=== PATIENT | male | born 1955 | race Caucasian/White ===

== ENCOUNTER 2016-08-26 10:00 | Inpatient (IN) | payer OTHER ==
[2016-08-26 10:06] VITALS: BMI 40.7
--- NOTE | 2016-08-26 11:07 | PDOC ---
History of Present Illness - General Chief Complaint: Lightheaded Stated Complaint: LIGHTHEADED (PACEMAKER) Time Seen by Provider: 08/26/16 10:23 History Source: Patient Exam Limitations: No Limitations - History of Present Illness Initial Comments: 08/26/16 11:06 Patient with history of A. fib, hypertension, CHF, AICD and COPD presents with 2 days history of sob and dizziness worsened with standing. Pt denies chest pain , palpitations, shock like pain, increased lower extremity edema, fever, abdominal pain, recent illness, recent change change in medication, or weight change. Presenting Symptoms: Dizziness, Short of Breath Timing/Duration: reports: intermittent Severity/Quality: reports: moderate Activities at Onset: reports: none Prior Chest Pain/Cardiac Workup: reports: Other (defibrillator/ pacemaker) Beta Manuelito given by EMS (Core Measure): No Beta Manuelito taken at Home (Core Measure): No Associated Symptoms: Yes: Dizziness, Shortness of Breath, Weakness. No: Chest Pain/pressure Past History - Past Medical History Allergies/Adverse Reactions: Allergies Allergy/AdvReac Type Severity Reaction Status Date / Time No Known Drug Allergies Allergy Verified 08/26/16 10:06 Home Medications: Ambulatory Orders Apixaban [Eliquis] 5 mg PO BID 07/26/15 Aspirin [ASA -] 81 mg PO DAILY 07/26/15 Sitagliptin Phos/Metformin HCl [Janumet 50-1,000 mg Tablet] 1 tab PO BID Gabapentin [Neurontin -] 400 mg PO BID capsule 11/14/15 Levothyroxine [Synthroid -] 25 mcg PO DAILY@0700 tablet 11/14/15 Atorvastatin Ca [Lipitor] 20 mg PO DAILY 01/18/16 Carvedilol [Coreg -] 25 mg PO BID 01/18/16 Clopidogrel Bisulfate [Plavix -] 75 mg PO DAILY 01/18/16 Glipizide [Glucotrol -] 5 mg PO BID 01/18/16 Losartan Potassium [Cozaar -] 50 mg PO DAILY 01/18/16 Spironolactone [Aldactone -] 25 mg PO DAILY 01/18/16 Furosemide [Lasix] 40 mg PO BID 08/26/16 Cardiac Disorders: Yes (cardiac stent, defib, cardiomyopathy, CABG 4) COPD: Yes CHF: Yes Diabetes: Yes HTN: Yes Hypercholesterolemia: Yes - Surgical History Cardiac Surgery: Yes (cardiac stent x1, CAGB 4, PACEMAKER/DEFIB) Orthopedic Surgery: No - Psycho/Social/Smoking Cessation Hx Anxiety: No Suicidal Ideation: No Smoking Status: No Smoking History: Former smoker Years of Tobacco Use: 20 Have you smoked in the past 12 months: No Number of Cigarettes Smoked Daily: 0 If you are a former smoker, when did you quit?: 2007 Information on smoking cessation initiated: No 'Breaking Loose' booklet given: 05/30/12 Hx Alcohol Use: No Drug/Substance Use Hx: No Substance Use Type: None Hx Substance Use Treatment: No Patient Lives Alone: No Lives with/in: spouse/SO Cardiac Specific PMH - Complaint Specific PMHX Abdominal Aortic Aneurysm: No Angina: No Cardiac Arrhythmia: No Cardiac Stent: Yes GERD: Yes Pacemaker: No Pulmonary Embolus: No Valvular Heart Disease: No Peripheral Vascular Disease: No Review of Systems - Review of Systems Able to Perform ROS?: Yes Constitutional: Yes: Weakness HEENTM: No: Symptoms Reported Respiratory: Yes: SOB with Exertion Cardiac (ROS): Yes: Lightheadedness. No: Chest Pain, Edema, Irregular Heart Rate, Palpitations, Syncope, Chest Tightness ABD/GI: No: Symptoms Reported : No: Symptoms Reported Musculoskeletal: No: Symptoms Reported Integumentary: No: Symptoms Reported Neurological: Yes: Dizziness Endocrine: No: Symptoms Reported Hematologic/Lymphatic: No: Symptoms Reported *Physical Exam - Vital Signs Last Vital Signs Temp Pulse Resp BP Pulse Ox 98.1 F 64 20 104/58 99 08/28/16 05:00 08/28/16 05:00 08/28/16 05:00 08/28/16 05:00 08/28/16 00:05 - Physical Exam General Appearance: Yes: Nourished, Appropriately Dressed. No: Apparent Distress HEENT: positive: EOMI, ROSALINDA. negative: Pale Conjunctivae Neck: positive: Supple Respiratory/Chest: positive: Lungs Clear, Normal Breath Sounds. negative: Respiratory Distress, Accessory Muscle Use Cardiovascular: positive: Regular Rhythm, Bradycardia. negative: Murmur Vascular Pulses: Dorsalis-Pedis (R): 2+, Doralis-Pedis (L): 2+ Gastrointestinal/Abdominal: positive: Soft. negative: Tenderness Extremity: positive: Normal Capillary Refill. negative: Pedal Edema Integumentary: positive: Normal Color, Warm, Moist Neurologic: positive: Normal Mood/Affect, Motor Strength 5/5 (ambulatory) Heart Score/ECG Review - History History: Slightly suspicious - ECG Intrepretation Rhythm: PAC(s) (rate 76. Right bundle branch block, LVH.) ED Treatment Course - LABORATORY CBC & Chemistry Diagram: 08/27/16 06:00 08/27/16 06:00 - ADDITIONAL ORDERS Additional order review: 08/26/16 11:13 RBC 3.35 L MCV 90.0 MCHC 33.4 RDW 21.3 H MPV 9.5 Neutrophils % 71.6 Lymphocytes % 20.2 Monocytes % 6.8 Eosinophils % 1.1 Basophils % 0.3 - RADIOLOGY Radiology Studies Ordered: Category Date Time Status CHEST X-RAY PORTABLE* [RAD] Stat Radiology 08/26/16 10:40 Completed - Medications Given in the ED: ED Medications Discontinued Medications Generic Name Dose Route Start Last Admin Trade Name Freq PRN Reason Stop Dose Admin Apixaban 5 mg 08/26/16 22:00 08/27/16 09:36 Eliquis - PO 5 mg BID JOSE Administration Furosemide 80 mg 08/26/16 15:52 08/26/16 16:55 Lasix Injection - IVPUSH 08/26/16 15:53 80 mg ONCE ONE Administration Sodium Chloride 500 mls @ 500 mls/hr 08/26/16 12:11 08/26/16 12:37 Normal Saline - IV 08/26/16 13:10 500 mls/hr ASDIR STA Administration Influenza Virus Vaccine 45 mcg 08/27/16 14:00 08/27/16 14:55 Fluvirin IM 08/27/16 14:01 45 mcg .ONCE ONE Administration Losartan Potassium 50 mg 08/27/16 10:00 08/27/16 09:36 Cozaar - PO 50 mg DAILY JOSE Administration Magnesium Oxide 400 mg 08/26/16 15:20 08/26/16 15:31 Mag-Ox - PO 08/26/16 15:21 400 mg ONCE ONE Administration Magnesium Oxide 400 mg 08/27/16 22:00 08/27/16 21:45 Mag-Ox - PO 08/27/16 22:01 400 mg HS ONE Administration Medical Decision Making - Critical Care Time Total Critical Care Time (minutes): 35 Critical Care Statement: The care of this patient involved high complexity decision making to prevent further life threatening deterioration of the patient 's condition and/or to evalute & treat vital organ system(s) failure or risk of failure. - Medical Decision Making 08/26/16 11:21 Patient with history of COPD, CHF with AICD placement in 2016 and is under the care of Dr. Queen. Patient states since last week has been feeling short of breath with exertion requiring his oxygen more frequently. Patient also stating he has been mildly generally weak with dizziness upon standing. Patient triaged had a heart rate of 45 and here has been fluctuating anywhere from 40 to mid 70s. Patient has his pacemaker card on him and contacted [facility] who will contact me shortly to initiate interrogation. Patient also ordered for labs, chest x-ray, EKG and placed on arc and gas welder. 08/26/16 12:41 Laboratory Tests 08/26/16 08/26/16 11:13 11:13 WBC 5.0 Hgb 10.1 L Hct 30.1 L Plt Count 157 Sodium 139 Potassium 4.2 Chloride 102 Carbon Dioxide 28 Anion Gap 9 BUN 52 H D Creatinine 3.0 H D Random Glucose 107 H D Calcium 8.4 L Magnesium 1.8 Total Bilirubin 0.6 D AST 16 D ALT 23 Creatine Kinase 76 Troponin I < 0.02 Laboratory Tests 11/23/15 05:50 BUN 22 H D Creatinine 0.8 Due to patient's elevated BUN/creatinine patient will have gentle fluid hydration of 500 mL. As per request the hospitalist patient had a BNP and digoxin level added. Case discussed with Dr. Calabrese who states to admit patient to telemetry. Contacted [facility] and did bedside interrogation which they will interpret over the next 10 minutes. Patient currently ranging his heart rate from 39-76 and has been otherwise asymptomatic while in bed. *DC/Admit/Observation/Transfer Diagnosis at time of Disposition: Shortness of breath, Bradycardia, Dizziness - Discharge Dispostion Admit: Yes
--- NOTE | 2016-08-26 11:40 | CON.CARD ---
Consult Consult Specialty:: Cardiology - History of Present Illness History of Present Illness: Patient with history of A. fib, hypertension, CHF, AICD and COPD presents with 2 days history of sob and dizziness worsened with standing. Pt denies chest pain , palpitations, shock like pain, increased lower extremity edema, fever, abdominal pain, recent illness, recent change change in medication, or weight change. Former Smoker Surgical History: CABG 06/2014 at [facility] (4VD) ICD 2015 Medical History: Diabetes Mellitus (DM) HTN hyperlipidemia obesity obstructive sleep apnea syndrome (OSAS) paroxysmal atrial fibrillation (PAF) s/p CABG 06/2014 (denies hx [place]), with moderately severe systolic LV dysfunction noted at [facility] on that admision-->ICD. Social History: Admitted 07/2015 to [facility] with systolic CHF. pt had to retire from work early due to health issues (CHF; CAD). walking is severely limited by dyspnea on exertion - History Source History Provided By: Patient, Medical Record - Past Medical History Cardio/Vascular: Yes: AFIB, CAD, CHF, HTN, Hyperlipdemia Pulmonary: Yes: COPD, Sleep Apnea. No: Asthma, Bronchitis, Cancer, O2 Dependent , Pneumonia, Previously Intubated, Pulmonary Embolus, Pulmonary Fibrosis, Other Renal/: Yes: Renal Inusuff (recent; ?prerenal azotemia) Endocrine: Yes: Diabetes Mellitus. No: [place]'s Disease, [place]'s Disease, Diabetes Insipidus, Hyperparathyroidism, Hyperthyroidism, Hypothyroidism, Osteopenia, SIADH, Other - Alcohol/Substance Use Hx Alcohol Use: No - Smoking History Smoking history: Former smoker Have you smoked in the past 12 months: No Aproximately how many cigarettes per day: 0 If you are a former smoker, when did you quit?: 2007 - Social History Usual Living Arrangement: With Spouse Home Medications - Allergies Allergies/Adverse Reactions: Allergies Allergy/AdvReac Type Severity Reaction Status Date / Time No Known Drug Allergies Allergy Verified 08/26/16 10:06 - Home Medications Home Medications: Ambulatory Orders Apixaban [Eliquis] 5 mg PO BID 07/26/15 Aspirin [ASA -] 81 mg PO DAILY 07/26/15 Sitagliptin Phos/Metformin HCl [Janumet 50-1,000 mg Tablet] 1 tab PO BID Gabapentin [Neurontin -] 400 mg PO BID capsule 11/14/15 Levothyroxine [Synthroid -] 25 mcg PO DAILY@0700 tablet 11/14/15 Atorvastatin Ca [Lipitor] 20 mg PO DAILY 01/18/16 Carvedilol [Coreg -] 25 mg PO BID 01/18/16 Clopidogrel Bisulfate [Plavix -] 75 mg PO DAILY 01/18/16 Glipizide [Glucotrol -] 5 mg PO BID 01/18/16 Losartan Potassium [Cozaar -] 50 mg PO DAILY 01/18/16 Spironolactone [Aldactone -] 25 mg PO DAILY 01/18/16 Furosemide [Lasix] 40 mg PO BID 08/26/16 Review of Systems - Review of Systems Constitutional: reports: No Symptoms Eyes: reports: No Symptoms HENT: reports: No Symptoms Neck: reports: No Symptoms Cardiovascular: reports: No Symptoms, Shortness of Breath Respiratory: reports: SOB Gastrointestinal: reports: No Symptoms Genitourinary: reports: No Symptoms Breasts: reports: No Symptoms Reported Musculoskeletal: reports: No Symptoms Integumentary: reports: No Symptoms Neurological: reports: No Symptoms Endocrine: reports: No Symptoms Hematology/Lymphatic: reports: No Symptoms Psychiatric: reports: No Symptoms Vital Signs: Vital Signs Temperature Pulse Rate 45 L 08/26/16 10:03 Respiratory Rate 24 08/26/16 10:03 Blood Pressure 124/54 08/26/16 10:03 O2 Sat by Pulse Oximetry (%) 98 08/26/16 11:24 Constitutional: Yes: Well Nourished, No Distress, Calm Eyes: Yes: WNL, Conjunctiva Clear, EOM Intact HENT: Yes: WNL, Atraumatic, Normocephalic Neck: Yes: WNL, Supple, Trachea Midline Respiratory: Yes: WNL, Regular, CTA Bilaterally Gastrointestinal: Yes: WNL, Normal Bowel Sounds Renal/: Yes: WNL Cardiovascular: Yes: WNL, Regular Rate and Rhythm Musculoskeletal: Yes: WNL Extremities: Yes: WNL Integumentary: Yes: WNL Neurological: Yes: WNL, Alert, Oriented ...Motor Strength: WNL Psychiatric: Yes: WNL, Alert, Oriented Imaging - Results Chest X-ray: Image Reviewed (cm chf) EKG: Image Reviewed (a fib) Problem List - Problems (1) AICD discharge Code(s): Z45.02 - ENCNTR FOR ADJUST AND MGMT OF AUTOMATIC IMPLNTBL CARD DEFIB (2) ASHD (arteriosclerotic heart disease) Code(s): I25.10 - ATHSCL HEART DISEASE OF [place] CORONARY ARTERY W/O ANG PCTRS (3) Ascites Code(s): R18.8 - OTHER ASCITES (4) Atrial fib/flutter, transient Code(s): [id number] - (5) Atrial fibrillation Code(s): I48.91 - UNSPECIFIED ATRIAL FIBRILLATION (6) Bifascicular block Code(s): I45.2 - BIFASCICULAR BLOCK (7) COPD (chronic obstructive pulmonary disease) Code(s): J44.9 - CHRONIC OBSTRUCTIVE PULMONARY DISEASE, UNSPECIFIED Qualifiers : COPD type: unspecified COPD Qualified Code(s): J44.9 - Chronic obstructive pulmonary disease, unspecified (8) Cellulitis and abscess of lower extremity Code(s): L02.419 - CUTANEOUS ABSCESS OF LIMB, UNSPECIFIED L03.119 - CELLULITIS OF UNSPECIFIED PART OF LIMB (9) Congestive heart failure Code(s): I50.9 - HEART FAILURE, UNSPECIFIED Qualifiers: Congestive heart failure type: unspecified congestive heart failure type Congestive heart failure chronicity: acute on chronic Qualified Code(s ): I50.9 - Heart failure, unspecified (10) Diabetes Code(s): E11.9 - TYPE 2 DIABETES MELLITUS WITHOUT COMPLICATIONS (11) HTN (hypertension) Code(s): I10 - ESSENTIAL (PRIMARY) HYPERTENSION (12) Hyperlipidemia Code(s): E78.5 - HYPERLIPIDEMIA, UNSPECIFIED (13) Hypothyroid Code(s): E03.9 - HYPOTHYROIDISM, UNSPECIFIED (14) Metabolic syndrome Code(s): E88.81 - METABOLIC SYNDROME (15) Morbid obesity Code(s): E66.01 - MORBID (SEVERE) OBESITY DUE TO EXCESS CALORIES (16) Pulmonary hypertension Code(s): I27.2 - OTHER SECONDARY PULMONARY HYPERTENSION (17) Renal insufficiency Code(s): N28.9 - DISORDER OF KIDNEY AND URETER, UNSPECIFIED (18) S/P CABG (coronary artery bypass graft) Code(s): Z95.1 - PRESENCE OF AORTOCORONARY BYPASS GRAFT (19) S/P implantation of automatic cardioverter/defibrillator (AICD) Code(s): Z95.810 - PRESENCE OF AUTOMATIC (IMPLANTABLE) CARDIAC DEFIBRILLATOR (20) Sleep apnea Code(s): G47.30 - SLEEP APNEA, UNSPECIFIED Qualifiers: Sleep apnea type: unspecified type Qualified Code(s): G47.30 - Sleep apnea, unspecified (21) Systolic and diastolic CHF w/reduced LV function, NYHA class 4 Code(s): I50.40 - UNSP COMBINED SYSTOLIC AND DIASTOLIC (CONGESTIVE) HRT FAIL (22) Trifascicular bundle branch block Code(s): I45.3 - TRIFASCICULAR BLOCK Assessment/Plan ischemic cmp s/p icd chf lenore morbid obesity Diabetes Mellitus (DM) HTN hyperlipidemia obstructive sleep apnea syndrome (OSAS) paroxysmal atrial fibrillation (PAF) s/p CABG 06/2014 (denies hx IA), with moderately severe systolic LV dysfunction noted at [facility] on that admision-->ICD. plan interrogation of icd showed normally functioning device with the backup pacing at 40 chf,lenore resolving start PO lasix 40 qd cont to monitor renal function consider renal consult
[2016-08-26 11:52] LABS: ALBUMIN 3.8 g/dl (3.4-5.0); ANION GAP 9 (8-16); BILIRUBIN,TOTAL 0.6 mg/dL (0.2-1.0); CALCIUM 8.4 mg/dL (8.5-10.1); CO2 28 mmol/L (21-32); COCKROFT - GAULT 44.22; GLUCOSE,RANDOM 107 mg/dL (74-106); MAGNESIUM 1.8 mg/dL (1.8-2.4); SGOT/AST 16 U/L (15-37); SGPT/ALT 23 U/L (12-78); TOT PROT 7.8 g/dl (6.4-8.2)
[2016-08-26 11:55] LABS: ALK PHOS 82 U/L (45-117); TROPONIN I < 0.02 ng/ml (0.00-0.05)
[2016-08-26 12:05] LABS: BASOPHIL 0.3 % (0-2.0); EOSINOPHIL 1.1 % (0-4.5); MCH 30.1 pg (25.7-33.7); MCHC 33.4 g/dl (32.0-35.9); MEAN PLT VOLUME 9.5 fl (7.5-11.1); NEUTROPHILS 71.6 % (42.8-82.8); PLATELET COUNT 157 K/MM3 (134-434); RDW 21.3 % (11.9-15.9)
[2016-08-26] MEDS ORDERED: SODIUM CHLORIDE 500 ML IV STA (12:11)
--- NOTE | 2016-08-26 12:36 | EKG ---
Test Reason : Blood Pressure : / mmHG Vent. Rate : 076 BPM Atrial Rate : 076 BPM P-R Int : 114 ms QRS Dur : 162 ms QT Int : 480 ms P-R-T Axes : 000 -60 112 degrees QTc Int : 540 ms ATRIAL FIBRILLATION VS. ATYPICAL ATRIAL TACHYCARDIA RIGHT BUNDLE BRANCH BLOCK LEFT ANTERIOR FASCICULAR BLOCK BIFASCICULAR BLOCK LEFT VENTRICULAR HYPERTROPHY WITH REPOLARIZATION ABNORMALITY ABNORMAL ECG WHEN COMPARED WITH ECG OF 18-JAN-2016 10:50, RHYTHM ABOVE CLINICAL CORRELATION IS RECOMMENDED Confirmed by ERNESTO MARSHALL, GALE ([id number]) on 08/26/2016 12:36:37 PM Referred By: Confirmed By:GALE OROZCO MD
--- NOTE | 2016-08-26 12:55 | PN ---
Teaching Attending Note Name of Resident: Joaquin Whitmore ATTENDING PHYSICIAN STATEMENT I saw and evaluated the patient. I reviewed the resident's note and discussed the case with the resident. I agree with the resident's findings and plan as documented. SUBJECTIVE: The patient is a 61 year old male with a significant past medical history of hypertension, hyperlipidemia, atrial fibrillation (On Eliquis), s/p pacer-AICD, CHF, type two diabetes, CAD, COPD, morbid obesity who presents to the ED with 1 week of dyspnea and intermittent lightheadedness. The dyspnea began gradually as dyspnea on exertion. He now has dyspnea at rest. He also reports a 2 pound weight gain and leg swelling bilaterally. He took either 1 or 2 tablets of Lasix most days starting (he cannot recall details). He also noted lightheadedness with standing and with ambulation. OBJECTIVE: Current vitals noted He was noted to have several prolonged episodes of bradycardia to the mid-30's in the ED [facility] was called to interrogate pacer He has decreased breath sounds and fine crackles at bothe bases Trace lower extremity pitting edema EKG: NSR at 78, RBBB, LAD, LAFB No significant change from prior CXR: cardiomegaly. Mild interval increase in interstitial markings. ASSESSMENT AND PLAN: The patient is a 61 year old make with a significant past medical history and ED course as above who is being admitted to inpatient services for evaluation and treatment of dyspnea, HARMAN and observed episodic bradycardia. -Suspected acute exacerbation of CHF Possibly due to episodic bradycardia with insufficient pacer response Will add BNP Will obtain TTE Add TSH Cardiology consult No further IVF -HARMAN Suspect pre-renal cause secondary to epidoic bradycardia and CHF with compromised forward flow and renal perfusion Will obtain renal US to r/o post-renal cause Check UA to examine sediment Hold Janumet and Glipizide given HARMAN -ENDOCRINE Holding Janumet and Glipizide given HARMAN SSI Check A1c Further details per resident note
[2016-08-26 13:09] LABS: INR 1.69 (0.82-1.09); PROTHROMBIN TIME (PATIENT) 18.8 SEC (9.98-11.88)
--- NOTE | 2016-08-26 13:31 | HP ---
CHIEF COMPLAINT: worsening dyspnea on exertion PCP: Dr. Quintero Guest Services Lead: Dr. 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 The patient states his dyspnea on exertion has been getting worse and worse as the days progress. HE reports a 2-3 pound weight gain and has not been responding to an extra dose of PO lasix at home. He also endorses worsening leg swelling. He has been having positional lightheadedness worse when going from sitting to standing. In the ED he was noted to be bradycardic to the mid 30's on telemetry and his AICD did not fire. Interrogation of AICD sent to [employer] and report came back and did not show any recorded events. Concern for AICD malfunctioning. He denies chest pain fevers chills nausea vomiting diarrhea or unrianry symptoms. ER course was notable for: (1)IVF Labs (2)Echo EKG (3)CXR Recent Travel: PAST MEDICAL HISTORY:HTN HLD Combined systolic and distolic CHF AICD CAD s/p CABG A fib on eliquis DM2 SHELDON Obesity Hypothyroidism COPD Morbid obesity PAST SURGICAL HISTORY:CABG 2015 AICD Social History: Smoking:quit in 2007 Alcohol: Denies Drugs: Denies Allergies No Known Drug Allergies Allergy (Verified 08/26/16 10:06) HOME MEDICATIONS: Home Medications Medication Instructions Recorded Apixaban [Eliquis] 5 mg PO BID 07/26/15 Aspirin [ASA -] 81 mg PO DAILY 07/26/15 Sitagliptin Phos/Metformin HCl 1 tab PO BID 07/26/15 [Janumet 50-1,000 mg Tablet] Gabapentin [Neurontin -] 400 mg PO BID capsule 11/14/15 Levothyroxine [Synthroid -] 25 mcg PO DAILY@0700 tablet 11/14/15 Atorvastatin Ca [Lipitor] 20 mg PO DAILY 01/18/16 Carvedilol [Coreg -] 25 mg PO BID 01/18/16 Clopidogrel Bisulfate [Plavix -] 75 mg PO DAILY 01/18/16 Glipizide [Glucotrol -] 5 mg PO BID 01/18/16 Losartan Potassium [Cozaar -] 50 mg PO DAILY 01/18/16 Nitroglycerin [Nitrostat] 0.4 mg SL PRN 01/18/16 Spironolactone [Aldactone -] 25 mg PO DAILY 01/18/16 Spironolactone 25 mg PO DAILY 08/26/16 REVIEW OF SYSTEMS CONSTITUTIONAL: Absent: fever, chills, diaphoresis, generalized weakness, malaise, loss of appetite, Present: weight gain ENT: Absent: rhinorrhea, nasal congestion, throat pain, throat swelling, difficulty swallowing, mouth swelling, ear pain, eye pain, visual changes CARDIOVASCULAR: Absent: chest pain, syncope, palpitations, irregular heart rate, Present: lightheadedness, peripheral edema RESPIRATORY: Absent: cough, shortness of breath, wheezing, stridor, hemoptysis Present: dyspnea with exertion, orthopnea GASTROINTESTINAL: Absent: abdominal pain, abdominal distension, nausea, vomiting, diarrhea, constipation, melena, hematochezia GENITOURINARY: Absent: dysuria, frequency, urgency, hesitancy, hematuria, flank pain, genital pain MUSCULOSKELETAL: Absent: myalgia, arthralgia, joint swelling, back pain, neck pain SKIN: Absent: rash, itching, pallor HEMATOLOGIC/IMMUNOLOGIC: Absent: easy bleeding, easy bruising, lymphadenopathy, frequent infections ENDOCRINE: Absent: unexplained weight gain, unexplained weight loss, heat intolerance, cold intolerance NEUROLOGIC: Absent: headache, focal weakness or paresthesias, dizziness, unsteady gait, seizure, mental status changes, bladder or bowel incontinence PSYCHIATRIC: Absent: anxiety, depression, suicidal or homicidal ideation, hallucinations. PHYSICAL EXAMINATION GENERAL: Awake, alert, and fully oriented, in no acute distress. HEAD: Normal with no signs of trauma. EYES: Pupils equal, round and reactive to light, extraocular movements intact, sclera anicteric, conjunctiva clear. EARS, NOSE, THROAT: Moist mucous membranes. NECK: Normal range of motion, supple without JVD, or masses. LUNGS: bibasilar crackles with dullness to percussion HEART: Irregular ABDOMEN: Soft, nontender, not distended, normoactive bowel sounds, no guarding, no rebound MUSCULOSKELETAL: No CVA tenderness. UPPER EXTREMITIES: warm, well-perfused. No peripheral edema. LOWER EXTREMITIES: warm, well-perfused. No calf tenderness. Trace pitting edema NEUROLOGICAL: Cranial nerves II-XII grossly intact. Normal speech. PSYCHIATRIC: Cooperative. Good eye contact. Appropriate mood and affect. SKIN: Warm, dry, normal turgor, no rashes or lesions noted Home Medication List Medication Instructions Recorded Confirmed Type Apixaban [Eliquis] 5 mg PO BID 07/26/15 08/26/16 History Aspirin [ASA -] 81 mg PO DAILY 07/26/15 08/26/16 History Sitagliptin Phos/Metformin HCl 1 tab PO BID 07/26/15 08/26/16 History [Janumet 50-1,000 mg Tablet] Atorvastatin Ca [Lipitor] 20 mg PO DAILY 01/18/16 08/26/16 History Carvedilol [Coreg -] 25 mg PO BID 01/18/16 08/26/16 History Clopidogrel Bisulfate [Plavix -] 75 mg PO DAILY 01/18/16 08/26/16 History Glipizide [Glucotrol -] 5 mg PO BID 01/18/16 08/26/16 History Losartan Potassium [Cozaar -] 50 mg PO DAILY 01/18/16 08/26/16 History Spironolactone [Aldactone -] 25 mg PO DAILY 01/18/16 08/26/16 History Furosemide [Lasix] 40 mg PO BID 08/26/16 08/26/16 History Active Medications Generic Name Dose Route Start Last Admin Trade Name Freq PRN Reason Stop Dose Admin Apixaban 5 mg 08/26/16 22:00 Eliquis - PO BID [facility] Aspirin 81 mg 08/27/16 10:00 Asa - PO DAILY [facility] Atorvastatin Calcium 20 mg 08/27/16 10:00 Lipitor - PO DAILY [facility] Clopidogrel Bisulfate 75 mg 08/27/16 10:00 Plavix - PO DAILY [facility] Gabapentin 400 mg 08/26/16 22:00 Neurontin - PO BID [facility] Insulin Aspart 1 vial 08/26/16 16:30 Novolog Vial Sliding Scale - SQ ACHS [facility] Protocol Levothyroxine Sodium 25 mcg 08/27/16 07:00 Synthroid - PO DAILY@0700 [facility] Losartan Potassium 50 mg 08/27/16 10:00 Cozaar - PO DAILY [facility] Spironolactone 25 mg 08/27/16 10:00 Aldactone - PO DAILY [facility] CXR: no infiltrates. no evidence of heart failure EKG: NSR at 78, RBBB, LAFB ASSESSMENT/PLAN: 61M with multiple medical probelms presents to the ED with worsening dyspnea on exertion found to have acute kidney injury. Acute exacerbation of chronic and diastolic congestive heart failure: patient has pitting edema with lung crackles and HARMAN: clinically he is in acute heart failure: patient has an AICD and denies it firing however in the ED he was noted to be bradycardic in the mid 30's and his AICD did not fire. 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 It is possible his AICD is not functioning properly and he may need a new one. His HR may be related to bradycardia. The bradycardia in combination with CHF - LV systolic function severely reduced on previous echo is likely causing low flow to the kidney Admit to Telemetry No more IVF Cardiology consult BNP 1100 Trend troponin to R/O ACS-negative x1 so far Give 80mg IV of lasix x1 then reassess patient for further diuresis f/u Echo f/u Cardiology for final read of AICD interrogation and recommendations as to if he should have it replaced Send TSH to make sure he is not hypothyroid which could be a cause of his bradycardia. Hold Coreg for now cotninue aldactone continue cozaar Acute Kidney Injury: Baseline Cr 0.8-1 Cr today is 3 likely secondary acute exacerbation of heart failure causing low flow state to the kidney will do kidney/bladder US to rule out obstructive causes should improve with diuresis CAD: Continue aspirin continue plavix continue eliquis continue lipitor HTN: well controlled at this time continue Cozaar continue aldactone hold Coreg for now as he is bradycardic HLD: continue statin Atrial fibrillation: continue eliquis continue aspirin hold beta blockers for now hypothyroidism: continue synthroid check TSH DM: hold oral hypoglycemics as he is in renal failure finger sticks for BGM ACHS ISS ACHS diabetic diet Check HbA1C SHELDON: patient being followed by Dr. Link continue outpatient follow up COPD: on home O2 per not in exacerbation at this time continue nasal cannula O2 at 3L/min FEN: No IVF no electrolyte issues diabetic/sodium controlled diet PPx: on eliquis already no criteria met for GI PPx no PT consult needed at this time will reassess patient on a daily basis for the need for PT Patient's at bedside and all questions answered and opportunity given for her to ask questions. the plan was explained to her in detail with Dr. Wilkins and myself. Patient seen and case discussed with Dr. Wilkins Visit type - Emergency Visit Emergency Visit: Yes ED Registration Date: 08/26/16 Care time: The patient presented to the Emergency Department on the above date and was hospitalized for further evaluation of their emergent condition. - New Patient This patient is new to me today: Yes Date on this admission: 08/26/16 - Critical Care Critical Care patient: No
[2016-08-26 15:16] LABS: THYROID STIMULATING HORMONE 2.45 uIU/ml (0.358-3.74)
[2016-08-26] MEDS ORDERED: MAGNESIUM OXIDE 400 MG TABLET (FP) PO ONE (15:20)
[2016-08-26] MEDS ORDERED: MAGNESIUM OXIDE 400 MG TABLET (FP) ONE (15:24)
[2016-08-26 15:47] LABS: URINE APPEARANCE CLEAR; URINE BILIRUBIN NEGATIVE (NEGATIVE); URINE BLOOD NEGATIVE (NEGATIVE); URINE COLOR YELLOW; URINE GLUCOSE (UA) NEGATIVE (NEGATIVE); URINE KETONE TRACE (NEGATIVE); URINE LEUK ESTERASE NEGATIVE (NEGATIVE); URINE NITRITE NEGATIVE (NEGATIVE); URINE PROTEIN NEGATIVE (NEGATIVE); URINE UROBILINOGEN NEGATIVE E.U./dl (0.2-1.0)
[2016-08-26] MEDS ORDERED: FUROSEMIDE 40 MG/4 ML INJECTABLE VIAL IVPUSH ONE (15:52)
[2016-08-26] MEDS ORDERED: FUROSEMIDE 40 MG/4 ML INJECTABLE VIAL ONE (16:54)
[2016-08-26] MEDS: INSULIN SLIDING SCALE (NOVOLOG) 1 VIAL SQ SCH ×2 (18:04→21:36)
[2016-08-26 19:56] LABS: TROPONIN I < 0.02 ng/ml (0.00-0.05)
[2016-08-26] MEDS: APIXABAN 5 MG TABLET PO SCH (21:29)
[2016-08-26] MEDS: GABAPENTIN 400 MG CAPSULE (FP) PO SCH (21:29)
[2016-08-26 22:51] LABS: TROPONIN I < 0.02 ng/ml (0.00-0.05)
[2016-08-27] MEDS: LEVOTHYROXINE NA 25 MCG TABLET (FP) PO SCH (06:37)
[2016-08-27] MEDS: INSULIN SLIDING SCALE (NOVOLOG) 1 VIAL SQ SCH ×4 (06:37→21:49)
[2016-08-27 07:33] LABS: MCH 30.6 pg (25.7-33.7); MCHC 34.1 g/dl (32.0-35.9); MEAN CELL VOLUME 89.8 fl (80-96); MEAN PLT VOLUME 9.1 fl (7.5-11.1); PLATELET COUNT 143 K/MM3 (134-434); RDW 21.3 % (11.9-15.9); WHITE BLOOD COUNT 4.5 K/mm3 (4.0-10.0)
[2016-08-27 07:58] LABS: CALCIUM 8.3 mg/dL (8.5-10.1); COCKROFT - GAULT 76.8; CREATININE 1.7 mg/dL (0.7-1.3); MAGNESIUM 1.6 mg/dL (1.8-2.4); PHOSPHOROUS 3.2 mg/dL (2.5-4.9)
[2016-08-27] MEDS: ATORVASTATIN CA 20 MG TABLET (FP) PO SCH (09:36)
[2016-08-27] MEDS: GABAPENTIN 400 MG CAPSULE (FP) PO SCH ×2 (09:36→21:45)
[2016-08-27] MEDS: ASPIRIN 81 MG CHEWABLE TABLETS PO SCH (09:36)
[2016-08-27] MEDS: CLOPIDOGREL BISULFATE 75 MG TABLET (FP) PO SCH (09:36)
[2016-08-27] MEDS: SPIRONOLACTONE 25 MG TABLET (FP) PO SCH (09:36)
[2016-08-27] MEDS: APIXABAN 5 MG TABLET PO SCH ×2 (09:36→21:45)
[2016-08-27] MEDS ORDERED: LOSARTAN POTASSIUM 50 MG TABLET (FP) PO SCH (10:00)
--- NOTE | 2016-08-27 10:59 | PN ---
Progress Note, Physician History of Present Illness: Patient with history of A. fib, hypertension, CHF, AICD and COPD presents with 2 days history of sob and dizziness worsened with standing. Pt denies chest pain , palpitations, shock like pain, increased lower extremity edema, fever, abdominal pain, recent illness, recent change change in medication, or weight change. Former Smoker Surgical History: CABG 06/2014 at [facility] (4VD) ICD 2016 Medical History: Diabetes Mellitus (DM) HTN hyperlipidemia obesity obstructive sleep apnea syndrome (OSAS) paroxysmal atrial fibrillation (PAF) s/p CABG 06/2014 (denies hx [place]), with moderately severe systolic LV dysfunction noted at [facility] on that admision-->ICD. Social History: Admitted 07/2015 to [facility] with systolic CHF. pt had to retire from work early due to health issues (CHF; CAD). walking is severely limited by dyspnea on exertion - Current Medication List Current Medications: Active Medications Apixaban (Eliquis -) 5 mg PO BID [facility] Last Admin: 08/27/16 09:36 Dose: 5 mg Aspirin (Asa -) 81 mg PO DAILY [facility] Last Admin: 08/27/16 09:36 Dose: 81 mg Atorvastatin Calcium (Lipitor -) 20 mg PO DAILY [facility] Last Admin: 08/27/16 09:36 Dose: 20 mg Clopidogrel Bisulfate (Plavix -) 75 mg PO DAILY [facility] Last Admin: 08/27/16 09:36 Dose: 75 mg Furosemide (Lasix -) 40 mg PO DAILY [facility] Gabapentin (Neurontin -) 400 mg PO BID [facility] Last Admin: 08/27/16 09:36 Dose: 400 mg Influenza Virus Vaccine (Fluvirin) 45 mcg IM .ONCE ONE Stop: 08/27/16 10:01 Insulin Aspart (Novolog Vial Sliding Scale -) 1 vial SQ [facility] PRN Reason: Protocol Last Admin: 08/27/16 06:37 Dose: Not Given Levothyroxine Sodium (Synthroid -) 25 mcg PO DAILY@0700 [facility] Last Admin: 08/27/16 06:37 Dose: 25 mcg Losartan Potassium (Cozaar -) 50 mg PO DAILY [facility] Last Admin: 08/27/16 09:36 Dose: 50 mg Spironolactone (Aldactone -) 25 mg PO DAILY [facility] Last Admin: 08/27/16 09:36 Dose: 25 mg - Objective Vital Signs: Vital Signs Temperature 98.2 F 04/19/17 09:00 Pulse Rate 52 L 08/27/16 09:00 Respiratory Rate 18 08/27/16 09:00 Blood Pressure 108/56 08/27/16 09:00 O2 Sat by Pulse Oximetry (%) 96 08/26/16 21:00 Eyes: Yes: WNL, Conjunctiva Clear, EOM Intact HENT: Yes: WNL, Atraumatic, Normocephalic Neck: Yes: WNL, Supple, Trachea Midline Cardiovascular: Yes: WNL, Regular Rate and Rhythm Respiratory: Yes: WNL, Regular, CTA Bilaterally Gastrointestinal: Yes: WNL, Normal Bowel Sounds Genitourinary: Yes: WNL Musculoskeletal: Yes: WNL Extremities: Yes: WNL Edema: No Integumentary: Yes: WNL Neurological: Yes: WNL, Alert, Oriented ...Motor Strength: WNL Psychiatric: Yes: WNL Labs: CBC, BMP 08/27/16 06:00 08/27/16 06:00 INR, PTT INR 1.69 (0.82-1.09) H 08/26/16 11:13 Problem List - Problems (1) AICD discharge Code(s): Z45.02 - ENCNTR FOR ADJUST AND MGMT OF AUTOMATIC IMPLNTBL CARD DEFIB (2) ASHD (arteriosclerotic heart disease) Code(s): I25.10 - ATHSCL HEART DISEASE OF [place] CORONARY ARTERY W/O ANG PCTRS (3) Ascites Code(s): R18.8 - OTHER ASCITES (4) Atrial fib/flutter, transient Code(s): WVD0533 - (5) Atrial fibrillation Code(s): I48.91 - UNSPECIFIED ATRIAL FIBRILLATION (6) Bifascicular block Code(s): I45.2 - BIFASCICULAR BLOCK (7) COPD (chronic obstructive pulmonary disease) Code(s): J44.9 - CHRONIC OBSTRUCTIVE PULMONARY DISEASE, UNSPECIFIED Qualifiers : COPD type: unspecified COPD Qualified Code(s): J44.9 - Chronic obstructive pulmonary disease, unspecified (8) Cellulitis and abscess of lower extremity Code(s): L02.419 - CUTANEOUS ABSCESS OF LIMB, UNSPECIFIED L03.119 - CELLULITIS OF UNSPECIFIED PART OF LIMB (9) Congestive heart failure Code(s): I50.9 - HEART FAILURE, UNSPECIFIED Qualifiers: Congestive heart failure type: unspecified congestive heart failure type Congestive heart failure chronicity: acute on chronic Qualified Code(s ): I50.9 - Heart failure, unspecified (10) Diabetes Code(s): E11.9 - TYPE 2 DIABETES MELLITUS WITHOUT COMPLICATIONS (11) HTN (hypertension) Code(s): I10 - ESSENTIAL (PRIMARY) HYPERTENSION (12) Hyperlipidemia Code(s): E78.5 - HYPERLIPIDEMIA, UNSPECIFIED (13) Hypothyroid Code(s): E03.9 - HYPOTHYROIDISM, UNSPECIFIED (14) Metabolic syndrome Code(s): E88.81 - METABOLIC SYNDROME (15) Morbid obesity Code(s): E66.01 - MORBID (SEVERE) OBESITY DUE TO EXCESS CALORIES (16) Pulmonary hypertension Code(s): I27.2 - OTHER SECONDARY PULMONARY HYPERTENSION (17) Renal insufficiency Code(s): N28.9 - DISORDER OF KIDNEY AND URETER, UNSPECIFIED (18) S/P CABG (coronary artery bypass graft) Code(s): Z95.1 - PRESENCE OF AORTOCORONARY BYPASS GRAFT (19) S/P implantation of automatic cardioverter/defibrillator (AICD) Code(s): Z95.810 - PRESENCE OF AUTOMATIC (IMPLANTABLE) CARDIAC DEFIBRILLATOR (20) Sleep apnea Code(s): G47.30 - SLEEP APNEA, UNSPECIFIED Qualifiers: Sleep apnea type: unspecified type Qualified Code(s): G47.30 - Sleep apnea, unspecified (21) Systolic and diastolic CHF w/reduced LV function, NYHA class 4 Code(s): I50.40 - UNSP COMBINED SYSTOLIC AND DIASTOLIC (CONGESTIVE) HRT FAIL (22) Trifascicular bundle branch block Code(s): I45.3 - TRIFASCICULAR BLOCK Assessment/Plan ischemic cmp s/p icd chf lenore morbid obesity Diabetes Mellitus (DM) HTN hyperlipidemia obstructive sleep apnea syndrome (OSAS) paroxysmal atrial fibrillation (PAF) s/p CABG 06/2014 (denies hx [place]), with moderately severe systolic LV dysfunction noted at [facility] on that admision-->ICD. plan interrogation of icd showed normally functioning device with the backup pacing at 40 chf,lenore resolving start PO lasix 40 qd cont to monitor renal function consider renal consult
[2016-08-27] MEDS ORDERED: FUROSEMIDE 40 MG TABLET (FP) PO SCH (11:00)
[2016-08-27] MEDS: FUROSEMIDE 40 MG/4 ML INJECTABLE VIAL IVPUSH SCH (13:33)
[2016-08-27] MEDS ORDERED: FUROSEMIDE 40 MG/4 ML INJECTABLE VIAL IVPUSH SCH (14:00)
[2016-08-27] MEDS ORDERED: INFLUENZA VACCINE 45 MCG/0.5 ML (MDV 16-17) IM ONE (14:00)
--- NOTE | 2016-08-27 15:46 | PN ---
Progress Note (short form) - Note Progress Note: PULMONARY CONSULTATION DICTATED 08/27/16 IMP DYSPNEA CHF ISCHEMIC CARDIOMYOPATHY S/P AICD ASHD S/P CABG,STENTS AFIB COPD ON HOME O2 OSAS ACUTE ON CHRONIC KIDNEY DISEASE HTN PLAN LASIX O2 INHALED BRONCHODILATORS BIPAP AT NIGHT DAILY WTS MONITOR RENAL FUNCTION MONITOR HEART RATE F/U CHEST X-RAY DR ECHEVARRIA Problem List - Problems (1) ASHD (arteriosclerotic heart disease) Code(s): I25.10 - ATHSCL HEART DISEASE OF [place] CORONARY ARTERY W/O ANG PCTRS (2) Atrial fib/flutter, transient Code(s): [id number] - (3) Atrial fibrillation Code(s): I48.91 - UNSPECIFIED ATRIAL FIBRILLATION (4) COPD (chronic obstructive pulmonary disease) Code(s): J44.9 - CHRONIC OBSTRUCTIVE PULMONARY DISEASE, UNSPECIFIED Qualifiers : COPD type: unspecified COPD Qualified Code(s): J44.9 - Chronic obstructive pulmonary disease, unspecified (5) Congestive heart failure Code(s): I50.9 - HEART FAILURE, UNSPECIFIED Qualifiers: Congestive heart failure type: unspecified congestive heart failure type Congestive heart failure chronicity: acute on chronic Qualified Code(s ): I50.9 - Heart failure, unspecified (6) Diabetes Code(s): E11.9 - TYPE 2 DIABETES MELLITUS WITHOUT COMPLICATIONS (7) HTN (hypertension) Code(s): I10 - ESSENTIAL (PRIMARY) HYPERTENSION (8) Hyperlipidemia Code(s): E78.5 - HYPERLIPIDEMIA, UNSPECIFIED (9) Morbid obesity Code(s): E66.01 - MORBID (SEVERE) OBESITY DUE TO EXCESS CALORIES (10) S/P CABG (coronary artery bypass graft) Code(s): Z95.1 - PRESENCE OF AORTOCORONARY BYPASS GRAFT (11) S/P implantation of automatic cardioverter/defibrillator (AICD) Code(s): Z95.810 - PRESENCE OF AUTOMATIC (IMPLANTABLE) CARDIAC DEFIBRILLATOR (12) Sleep apnea Code(s): G47.30 - SLEEP APNEA, UNSPECIFIED Qualifiers: Sleep apnea type: unspecified type Qualified Code(s): G47.30 - Sleep apnea, unspecified (13) Systolic and diastolic CHF w/reduced LV function, NYHA class 4 Code(s): I50.40 - UNSP COMBINED SYSTOLIC AND DIASTOLIC (CONGESTIVE) HRT FAIL (14) Renal insufficiency Code(s): N28.9 - DISORDER OF KIDNEY AND URETER, UNSPECIFIED
--- NOTE | 2016-08-27 17:17 | CONS ---
PULMONARY CONSULTATION DATE OF CONSULTATION: 08/27/2016 REFERRING PHYSICIAN: Marv Whitmore MD HISTORY OF PRESENT ILLNESS: The patient is a 61-year-old white male known to me in previous hospitalization and office follow with a past medical history of advanced COPD, on home O2, severe congestive heart failure, cardiomyopathy status post AICD, atrial fibrillation, hypertension, obstructive sleep apnea maintained on BiPAP 25, ePAP 21 visits [facility] with 2-day history of increasing shortness of breath, dyspnea on exertion and dizziness. Patient was at pulmonary rehab yesterday and noted to be hypotensive and bradycardic in the department at that time. She was transferred over to the ER. The patient denied any complaint of chest pain, nausea, vomiting, diaphoresis. No change in medication. Denies any fevers or chills. Denies any hemoptysis. Patient does complain of shortness of breath with minimal exertion and two-pillow orthopnea. States that he denies any fevers or chills. Has a history of tobacco use, quit a few years ago. There was no history of occupational exposure to chemicals or fumes. PAST MEDICAL HISTORY: Atrial fibrillation, hypertension, CHF status post AICD. COPD on home O2. Severe obstructive sleep apnea syndrome. SOCIAL HISTORY: History of tobacco use. Quit years ago. No occupational exposures CURRENT MEDICATIONS: Eliquis, Neurontin, Lipitor, NovoLog, Lasix, Aldactone, aspirin, Plavix and Synthroid. REVIEW OF SYSTEMS: Positive orthopnea, positive dyspnea on exertion, positive lightheadedness. No chest pain, no palpitations, no abdominal pain, no GI complaints, no diarrhea, no hematemesis, no lower extremity edema. PHYSICAL EXAMINATION: General: The patient is a well-developed, well-nourished obese male, awake, alert, in no acute distress. Vital signs: He is afebrile. Heart rate is 71. Respiratory rate is 18. O2 sat is 95% on 3 liters. HEENT exam: Normocephalic, atraumatic. Neck is supple. Heart: Bradycardic, regular with S1, S2. Chest: A few bibasilar crackles. Abdomen is soft. Bowel sounds are positive. Extremities: No cyanosis or edema. LABS: WBC is 4.5, hemoglobin 10, hematocrit 29.2 with a platelet count of 143,000. INR is 1.69. BUN 43, creatinine 1.7, magnesium 1.6. Chest x-ray: Cardiomegaly, sternal sutures, unfolded aorta, status post pacemaker. Prominent right hilar markings. IMPRESSION: 1. Shortness of breath, dyspnea possibly secondary to ischemic cardiopathy. 2. Congestive heart failure. 3. Ylzfv-ea-rapowvo renal disease. Kidney disease. 4. Obstructive sleep apnea syndrome. 5. COPD, on home O2. 6. Hypertension. 7. Atrial fibrillation status post ICD. 8. ASHD status post CABG, status post stent. PLAN: 1. Lasix as per cardiology. 2. Supplemental O2. 3. Inhaled bronchodilators, p.r.n. 4. Follow-up chest x-ray. 5. BiPAP at night. 6. Monitor renal function. 7. Consider renal consult. FLOWER ECHEVARRIA M.D. TAYLOR/[id number]
--- NOTE | 2016-08-27 18:08 | PN ---
Physical Exam: SUBJECTIVE: Patient seen and examined at bedside with present and patient want to go home he feels significantly better OBJECTIVE: Vital Signs Period Temp Pulse Resp BP Sys/Villalobos Pulse Ox Last 24 Hr 97.6 F-98.2 F 40-72 18-20 96-114/46-65 92-96 GENERAL: Awake, alert, and fully oriented, in no acute distress. HEAD: Normal with no signs of trauma. EYES: Pupils equal, round and reactive to light, extraocular movements intact, sclera anicteric, conjunctiva clear. EARS, NOSE, THROAT: Moist mucous membranes. NECK: Normal range of motion, supple without JVD, or masses. LUNGS: mild bibasilar crackles improved HEART: Irregular ABDOMEN: Soft, nontender, not distended, normoactive bowel sounds, no guarding, no rebound MUSCULOSKELETAL: No CVA tenderness. UPPER EXTREMITIES: warm, well-perfused. No peripheral edema. LOWER EXTREMITIES: warm, well-perfused. No calf tenderness. no edema NEUROLOGICAL: Cranial nerves II-XII grossly intact. Normal speech. PSYCHIATRIC: Cooperative. Good eye contact. Appropriate mood and affect. SKIN: Warm, dry, normal turgor, no rashes or lesions noted Laboratory Results - last 24 hr 08/26/16 08/26/16 08/26/16 18:01 18:30 21:31 WBC RBC Hgb Hct MCV MCHC RDW Plt Count MPV Sodium Potassium Chloride Carbon Dioxide Anion Gap BUN Creatinine POC Glucometer 124 171 Random Glucose Hemoglobin A1c % Calcium Phosphorus Magnesium Creatine Kinase 66 Troponin I < 0.02 08/26/16 08/27/16 08/27/16 21:45 05:03 06:00 WBC 4.5 RBC 3.25 L Hgb 10.0 L Hct 29.2 L MCV 89.8 MCHC 34.1 RDW 21.3 H Plt Count 143 MPV 9.1 Sodium Potassium Chloride Carbon Dioxide Anion Gap BUN Creatinine POC Glucometer 113 Random Glucose Hemoglobin A1c % Calcium Phosphorus Magnesium Creatine Kinase 66 Troponin I < 0.02 08/27/16 08/27/16 08/27/16 06:00 06:00 12:03 WBC RBC Hgb Hct MCV MCHC RDW Plt Count MPV Sodium 139 Potassium 4.2 Chloride 100 Carbon Dioxide 33 H Anion Gap 6 L BUN 43 H Creatinine 1.7 H D POC Glucometer 128 Random Glucose 102 Hemoglobin A1c % 5.8 D Calcium 8.3 L Phosphorus 3.2 Magnesium 1.6 L Creatine Kinase Troponin I 08/27/16 16:26 WBC RBC Hgb Hct MCV MCHC RDW Plt Count MPV Sodium Potassium Chloride Carbon Dioxide Anion Gap BUN Creatinine POC Glucometer 149 Random Glucose Hemoglobin A1c % Calcium Phosphorus Magnesium Creatine Kinase Troponin I Active Medications Generic Name Dose Route Start Last Admin Trade Name Ranulfoq PRN Reason Stop Dose Admin Apixaban 2.5 mg 08/27/16 22:00 Eliquis - PO BID JOSE Aspirin 81 mg 08/27/16 10:00 08/27/16 09:36 Asa - PO 81 mg DAILY JOSE Administration Atorvastatin Calcium 20 mg 08/27/16 10:00 08/27/16 09:36 Lipitor - PO 20 mg DAILY JOSE Administration Clopidogrel Bisulfate 75 mg 08/27/16 10:00 08/27/16 09:36 Plavix - PO 75 mg DAILY JOSE Administration Furosemide 40 mg 08/27/16 14:00 08/27/16 13:33 Lasix Injection - IVPUSH 40 mg BID@0600,1400 JOSE Administration Gabapentin 400 mg 08/26/16 22:00 08/27/16 09:36 Neurontin - PO 400 mg BID JOSE Administration Insulin Aspart 1 vial 08/26/16 16:30 08/27/16 16:43 Novolog Vial Sliding Scale - SQ Not Given ACHS [facility] Protocol Levothyroxine Sodium 25 mcg 08/27/16 07:00 08/27/16 06:37 Synthroid - PO 25 mcg DAILY@0700 JOSE Administration Spironolactone 25 mg 08/27/16 10:00 08/27/16 09:36 Aldactone - PO 25 mg DAILY JOSE Administration ASSESSMENT/PLAN: 61M with multiple medical probelms presents to the ED with worsening dyspnea on exertion found to have acute kidney injury. Acute exacerbation of chronic and diastolic congestive heart failure: improving with lasix diueresis. AICD interrogation report reviewed with Dr. Calabrese. AICD is working. On further review the monitoring engineer's HR numbers were inaccurate as patient has irregular heart beats. upon reviewing the R-R intervals his HR never dropped below 40. continue Telemetry Cardiology consult appreciated continue with lasix 40mg IV BID Troponin negative x 3 Echo report noted Hold Coreg for now cotninue aldactone hold losartan due to acute renal failure TSH WNL Acute Kidney Injury: Baseline Cr 0.8-1 Cr today is 1.7 which is significantly improved with diuresis Cr was 3 on admission likely secondary acute exacerbation of heart failure causing low flow state to the kidney will do kidney/bladder US to rule out obstructive causes should improve with diuresis CAD: Continue aspirin continue plavix continue eliquis at lowered dose of 2.5 mg po BID as he is currently in renal failure once renal failure resolves will put back on his full dose. continue lipitor HTN: well controlled at this time hold Cozaar while in renal failure continue aldactone hold Coreg for now as he is bradycardic HLD: continue statin Atrial fibrillation: continue eliquis at decreased dose until renal failure resolves continue aspirin hold beta blockers for now hypothyroidism: continue synthroid TSH WNL DM: hold oral hypoglycemics as he is in renal failure finger sticks for BGM ACHS ISS ACHS diabetic diet HbA1C 5.8% SHELDON: Pulmonology consult appreciated BiPAp at night COPD: on home O2 per not in exacerbation at this time continue nasal cannula O2 at 3L/min FEN: No IVF hypomagnesemia replete magnesium recheck tomorrow diabetic/sodium controlled diet PPx: on eliquis already no criteria met for GI PPx no PT consult needed at this time will reassess patient on a daily basis for the need for PT-patient is ambulating Patient's at bedside and all questions answered and opportunity given for her to ask questions Visit type - Emergency Visit Emergency Visit: Yes ED Registration Date: 08/26/16 Care time: The patient presented to the Emergency Department on the above date and was hospitalized for further evaluation of their emergent condition. - New Patient This patient is new to me today: No - Critical Care Critical Care patient: No - Discharge Referral Referred to [facility] Med P.C.: No
--- NOTE | 2016-08-27 19:09 | PN ---
Teaching Attending Note Name of Resident: Joaquin Whitmore ATTENDING PHYSICIAN STATEMENT I saw and evaluated the patient. I reviewed the resident's note and discussed the case with the resident. I agree with the resident's findings and plan as documented. SUBJECTIVE: No fever or chills , feels SOB is better . no CP or palpitations OBJECTIVE: NAD CV: RRR, no JVD , n o hepato-jugular reflex Lungs : minimal crackles at bases Ext : trace edema ASSESSMENT AND PLAN: 61 y/o man with /o HTN, A fib, CABG , CAD , chronic Systolic and diastolic heart failure , s/p AICD and other problems who presented with SOB , he was found to beb in HARMAN and acute CHF 1- Acute on chronic Systolic and diastolic heart failure : diuresed well with 80 of IV lasix, yesterday., His renal functionand SOB improved with diuresis - cont lasix - weight and I&O - coreg on hold due to bradycardia , hold ARB due to HARMAN as well 2- bradycardia : EKG showed bifascicular block, with A fib. case was d/w Dr. Julian by resident and strips reviewed. HR never went below 40 AICD was interrogated and functioning normally. - coreg on hold - tele 3- HARMAN : likely due to prerenal azotemia in setting of decreased [employer]. improved with diuresis - cont lasix - cont to hold ARB 4- A fib: cont eliquis. BB on hold 5CAD : s/p CABG . cont ASa and plavix . BB on hold dispo : possible dc tomorrow
[2016-08-27] MEDS ORDERED: MAGNESIUM OXIDE 400 MG TABLET (FP) PO ONE (22:00)
[2016-08-27] MEDS ORDERED: APIXABAN 2.5 MG TABLET PO SCH (22:00)
[2016-08-28] MEDS: LEVOTHYROXINE NA 25 MCG TABLET (FP) PO SCH (06:22)
[2016-08-28] MEDS: FUROSEMIDE 40 MG/4 ML INJECTABLE VIAL IVPUSH SCH ×2 (06:22→15:02)
[2016-08-28] MEDS: INSULIN SLIDING SCALE (NOVOLOG) 1 VIAL SQ SCH ×2 (06:46→11:54)
[2016-08-28 08:22] LABS: CALCIUM 8.4 mg/dL (8.5-10.1); MAGNESIUM 1.9 mg/dL (1.8-2.4)
[2016-08-28 08:24] LABS: CREATININE 1.2 mg/dL (0.7-1.3)
[2016-08-28] MEDS: ASPIRIN 81 MG CHEWABLE TABLETS PO SCH (09:23)
[2016-08-28] MEDS: ATORVASTATIN CA 20 MG TABLET (FP) PO SCH (09:23)
[2016-08-28] MEDS: GABAPENTIN 400 MG CAPSULE (FP) PO SCH (09:24)
[2016-08-28] MEDS: CLOPIDOGREL BISULFATE 75 MG TABLET (FP) PO SCH (09:24)
[2016-08-28] MEDS: SPIRONOLACTONE 25 MG TABLET (FP) PO SCH (09:24)
[2016-08-28] MEDS: APIXABAN 5 MG TABLET PO SCH (09:24)
[2016-08-28 09:55] VITALS: TEMP 98
--- NOTE | 2016-08-28 10:26 | PN ---
Progress Note, Physician History of Present Illness: Patient with history of A. fib, hypertension, CHF, AICD and COPD presents with 2 days history of sob and dizziness worsened with standing. Pt denies chest pain , palpitations, shock like pain, increased lower extremity edema, fever, abdominal pain, recent illness, recent change change in medication, or weight change. Former Smoker Surgical History: CABG 06/2014 at [facility] (4VD) ICD 2016 Medical History: Diabetes Mellitus (DM) HTN hyperlipidemia obesity obstructive sleep apnea syndrome (OSAS) paroxysmal atrial fibrillation (PAF) s/p CABG 06/2014 (denies hx MD), with moderately severe systolic LV dysfunction noted at [facility] on that admision-->ICD. Social History: Admitted 07/2015 to [facility] with systolic CHF. pt had to retire from work early due to health issues (CHF; CAD). walking is severely limited by dyspnea on exertion - Current Medication List Current Medications: Active Medications Apixaban (Eliquis -) 5 mg PO BID [facility] Last Admin: 08/28/16 09:24 Dose: 5 mg Aspirin (Asa -) 81 mg PO DAILY [facility] Last Admin: 08/28/16 09:23 Dose: 81 mg Atorvastatin Calcium (Lipitor -) 20 mg PO DAILY [facility] Last Admin: 08/28/16 09:23 Dose: 20 mg Clopidogrel Bisulfate (Plavix -) 75 mg PO DAILY [facility] Last Admin: 08/28/16 09:24 Dose: 75 mg Furosemide (Lasix Injection -) 40 mg IVPUSH BID@0600,1400 [facility] Last Admin: 08/28/16 06:22 Dose: 40 mg Gabapentin (Neurontin -) 400 mg PO BID [facility] Last Admin: 08/28/16 09:24 Dose: 400 mg Insulin Aspart (Novolog Vial Sliding Scale -) 1 vial SQ [facility] PRN Reason: Protocol Last Admin: 08/28/16 06:46 Dose: Not Given Levothyroxine Sodium (Synthroid -) 25 mcg PO DAILY@0700 [facility] Last Admin: 08/28/16 06:22 Dose: 25 mcg Spironolactone (Aldactone -) 25 mg PO DAILY [facility] Last Admin: 08/28/16 09:24 Dose: 25 mg - Objective Vital Signs: Vital Signs Temperature 98 F 08/28/16 09:00 Pulse Rate 56 L 08/28/16 09:00 Respiratory Rate 18 08/28/16 09:00 Blood Pressure 132/64 08/28/16 09:00 O2 Sat by Pulse Oximetry (%) 99 08/28/16 00:05 Eyes: Yes: WNL, Conjunctiva Clear, EOM Intact HENT: Yes: WNL, Atraumatic, Normocephalic Neck: Yes: WNL, Supple, Trachea Midline Cardiovascular: Yes: WNL, Regular Rate and Rhythm Respiratory: Yes: WNL, Regular, CTA Bilaterally Gastrointestinal: Yes: WNL, Normal Bowel Sounds Genitourinary: Yes: WNL Musculoskeletal: Yes: WNL Extremities: Yes: WNL Edema: No Integumentary: Yes: WNL Neurological: Yes: WNL, Alert, Oriented ...Motor Strength: WNL Psychiatric: Yes: WNL Labs: CBC, BMP 08/27/16 06:00 08/28/16 05:58 INR, PTT INR 1.69 (0.82-1.09) H 08/26/16 11:13 Problem List - Problems (1) AICD discharge Code(s): Z45.02 - ENCNTR FOR ADJUST AND MGMT OF AUTOMATIC IMPLNTBL CARD DEFIB (2) ASHD (arteriosclerotic heart disease) Code(s): I25.10 - ATHSCL HEART DISEASE OF [place] CORONARY ARTERY W/O ANG PCTRS (3) Ascites Code(s): R18.8 - OTHER ASCITES (4) Atrial fib/flutter, transient Code(s): LPN9624 - (5) Atrial fibrillation Code(s): I48.91 - UNSPECIFIED ATRIAL FIBRILLATION (6) Bifascicular block Code(s): I45.2 - BIFASCICULAR BLOCK (7) COPD (chronic obstructive pulmonary disease) Code(s): J44.9 - CHRONIC OBSTRUCTIVE PULMONARY DISEASE, UNSPECIFIED Qualifiers : COPD type: unspecified COPD Qualified Code(s): J44.9 - Chronic obstructive pulmonary disease, unspecified (8) Cellulitis and abscess of lower extremity Code(s): L02.419 - CUTANEOUS ABSCESS OF LIMB, UNSPECIFIED L03.119 - CELLULITIS OF UNSPECIFIED PART OF LIMB (9) Congestive heart failure Code(s): I50.9 - HEART FAILURE, UNSPECIFIED Qualifiers: Congestive heart failure type: unspecified congestive heart failure type Congestive heart failure chronicity: acute on chronic Qualified Code(s ): I50.9 - Heart failure, unspecified (10) Diabetes Code(s): E11.9 - TYPE 2 DIABETES MELLITUS WITHOUT COMPLICATIONS (11) HTN (hypertension) Code(s): I10 - ESSENTIAL (PRIMARY) HYPERTENSION (12) Hyperlipidemia Code(s): E78.5 - HYPERLIPIDEMIA, UNSPECIFIED (13) Hypothyroid Code(s): E03.9 - HYPOTHYROIDISM, UNSPECIFIED (14) Metabolic syndrome Code(s): E88.81 - METABOLIC SYNDROME (15) Morbid obesity Code(s): E66.01 - MORBID (SEVERE) OBESITY DUE TO EXCESS CALORIES (16) Pulmonary hypertension Code(s): I27.2 - OTHER SECONDARY PULMONARY HYPERTENSION (17) Renal insufficiency Code(s): N28.9 - DISORDER OF KIDNEY AND URETER, UNSPECIFIED (18) S/P CABG (coronary artery bypass graft) Code(s): Z95.1 - PRESENCE OF AORTOCORONARY BYPASS GRAFT (19) S/P implantation of automatic cardioverter/defibrillator (AICD) Code(s): Z95.810 - PRESENCE OF AUTOMATIC (IMPLANTABLE) CARDIAC DEFIBRILLATOR (20) Sleep apnea Code(s): G47.30 - SLEEP APNEA, UNSPECIFIED Qualifiers: Sleep apnea type: unspecified type Qualified Code(s): G47.30 - Sleep apnea, unspecified (21) Systolic and diastolic CHF w/reduced LV function, NYHA class 4 Code(s): I50.40 - UNSP COMBINED SYSTOLIC AND DIASTOLIC (CONGESTIVE) HRT FAIL (22) Trifascicular bundle branch block Code(s): I45.3 - TRIFASCICULAR BLOCK Assessment/Plan ischemic cmp s/p icd chf lenore morbid obesity Diabetes Mellitus (DM) HTN hyperlipidemia obstructive sleep apnea syndrome (OSAS) paroxysmal atrial fibrillation (PAF) s/p CABG 06/2014 (denies hx MD), with moderately severe systolic LV dysfunction noted at [facility] on that admision-->ICD. plan interrogation of icd showed normally functioning device with the backup pacing at 40 chf,lenore resolving start PO lasix 40 qd cont to monitor renal function stable for outpatient f/u from cardiac point of view.
--- NOTE | 2016-08-28 10:51 | PN ---
Progress Note, Physician History of Present Illness: PULMONARY ALERT,OOB-CHAIR,-SOB,-C. PT SLEPT WELL ON BIPAP - Current Medication List Current Medications: Active Medications Apixaban (Eliquis -) 5 mg PO BID [facility] Last Admin: 08/28/16 09:24 Dose: 5 mg Aspirin (Asa -) 81 mg PO DAILY [facility] Last Admin: 08/28/16 09:23 Dose: 81 mg Atorvastatin Calcium (Lipitor -) 20 mg PO DAILY [facility] Last Admin: 08/28/16 09:23 Dose: 20 mg Clopidogrel Bisulfate (Plavix -) 75 mg PO DAILY [facility] Last Admin: 08/28/16 09:24 Dose: 75 mg Furosemide (Lasix Injection -) 40 mg IVPUSH BID@0600,1400 [facility] Last Admin: 08/28/16 06:22 Dose: 40 mg Gabapentin (Neurontin -) 400 mg PO BID [facility] Last Admin: 08/28/16 09:24 Dose: 400 mg Insulin Aspart (Novolog Vial Sliding Scale -) 1 vial SQ ACHS [facility] PRN Reason: Protocol Last Admin: 08/28/16 06:46 Dose: Not Given Levothyroxine Sodium (Synthroid -) 25 mcg PO DAILY@0700 [facility] Last Admin: 08/28/16 06:22 Dose: 25 mcg Spironolactone (Aldactone -) 25 mg PO DAILY [facility] Last Admin: 08/28/16 09:24 Dose: 25 mg - Objective Vital Signs: Vital Signs Temperature 98 F 08/28/16 09:00 Pulse Rate 56 L 08/28/16 09:00 Respiratory Rate 18 08/28/16 09:00 Blood Pressure 132/64 08/28/16 09:00 O2 Sat by Pulse Oximetry (%) 99 08/28/16 00:05 Constitutional: Yes: Well Nourished, Calm Eyes: Yes: WNL HENT: Yes: WNL Neck: Yes: WNL Cardiovascular: Yes: Pulse Irregular, S1, S2 Respiratory: Yes: Diminished Gastrointestinal: Yes: WNL Extremities: Yes: WNL Edema: No Labs: CBC, BMP 08/27/16 06:00 08/28/16 05:58 INR, PTT INR 1.69 (0.82-1.09) H 08/26/16 11:13 Problem List - Problems (1) ASHD (arteriosclerotic heart disease) Code(s): I25.10 - ATHSCL HEART DISEASE OF [place] CORONARY ARTERY W/O ANG PCTRS (2) Atrial fib/flutter, transient Code(s): [id number] - (3) Atrial fibrillation Code(s): I48.91 - UNSPECIFIED ATRIAL FIBRILLATION (4) COPD (chronic obstructive pulmonary disease) Code(s): J44.9 - CHRONIC OBSTRUCTIVE PULMONARY DISEASE, UNSPECIFIED Qualifiers : COPD type: unspecified COPD Qualified Code(s): J44.9 - Chronic obstructive pulmonary disease, unspecified (5) Congestive heart failure Code(s): I50.9 - HEART FAILURE, UNSPECIFIED Qualifiers: Congestive heart failure type: unspecified congestive heart failure type Congestive heart failure chronicity: acute on chronic Qualified Code(s ): I50.9 - Heart failure, unspecified (6) Diabetes Code(s): E11.9 - TYPE 2 DIABETES MELLITUS WITHOUT COMPLICATIONS (7) HTN (hypertension) Code(s): I10 - ESSENTIAL (PRIMARY) HYPERTENSION (8) Hyperlipidemia Code(s): E78.5 - HYPERLIPIDEMIA, UNSPECIFIED (9) Morbid obesity Code(s): E66.01 - MORBID (SEVERE) OBESITY DUE TO EXCESS CALORIES (10) S/P CABG (coronary artery bypass graft) Code(s): Z95.1 - PRESENCE OF AORTOCORONARY BYPASS GRAFT (11) S/P implantation of automatic cardioverter/defibrillator (AICD) Code(s): Z95.810 - PRESENCE OF AUTOMATIC (IMPLANTABLE) CARDIAC DEFIBRILLATOR (12) Sleep apnea Code(s): G47.30 - SLEEP APNEA, UNSPECIFIED Qualifiers: Sleep apnea type: unspecified type Qualified Code(s): G47.30 - Sleep apnea, unspecified (13) Systolic and diastolic CHF w/reduced LV function, NYHA class 4 Code(s): I50.40 - UNSP COMBINED SYSTOLIC AND DIASTOLIC (CONGESTIVE) HRT FAIL (14) Renal insufficiency Code(s): N28.9 - DISORDER OF KIDNEY AND URETER, UNSPECIFIED Assessment/Plan IMP DYSPNEA CHF ISCHEMIC CARDIOMYOPATHY S/P AICD ASHD S/P CABG,STENTS AFIB COPD ON HOME O2 OSAS ACUTE ON CHRONIC KIDNEY DISEASE IMPROVED HTN PLAN LASIX PO PER CARDIOLOGY O2 INHALED BRONCHODILATORS BIPAP AT NIGHT DAILY WTS MONITOR RENAL FUNCTION DR ECHEVARRIA Problem List - Problems (1) ASHD (arteriosclerotic heart disease) Code(s): I25.10 - ATHSCL HEART DISEASE OF [place] CORONARY ARTERY W/O ANG PCTRS (2) Atrial fib/flutter, transient Code(s): [id number] - (3) Atrial fibrillation Code(s): I48.91 - UNSPECIFIED ATRIAL FIBRILLATION (4) COPD (chronic obstructive pulmonary disease) Code(s): J44.9 - CHRONIC OBSTRUCTIVE PULMONARY DISEASE, UNSPECIFIED Qualifiers : COPD type: unspecified COPD Qualified Code(s): J44.9 - Chronic obstructive pulmonary disease, unspecified (5) Congestive heart failure Code(s): I50.9 - HEART FAILURE, UNSPECIFIED Qualifiers: Congestive heart failure type: unspecified congestive heart failure type Congestive heart failure chronicity: acute on chronic Qualified Code(s ): I50.9 - Heart failure, unspecified (6) Diabetes Code(s): E11.9 - TYPE 2 DIABETES MELLITUS WITHOUT COMPLICATIONS (7) HTN (hypertension) Code(s): I10 - ESSENTIAL (PRIMARY) HYPERTENSION (8) Hyperlipidemia Code(s): E78.5 - HYPERLIPIDEMIA, UNSPECIFIED (9) Morbid obesity Code(s): E66.01 - MORBID (SEVERE) OBESITY DUE TO EXCESS CALORIES (10) S/P CABG (coronary artery bypass graft) Code(s): Z95.1 - PRESENCE OF AORTOCORONARY BYPASS GRAFT (11) S/P implantation of automatic cardioverter/defibrillator (AICD) Code(s): Z95.810 - PRESENCE OF AUTOMATIC (IMPLANTABLE) CARDIAC DEFIBRILLATOR (12) Sleep apnea Code(s): G47.30 - SLEEP APNEA, UNSPECIFIED Qualifiers: Sleep apnea type: unspecified type Qualified Code(s): G47.30 - Sleep apnea, unspecified (13) Systolic and diastolic CHF w/reduced LV function, NYHA class 4 Code(s): I50.40 - UNSP COMBINED SYSTOLIC AND DIASTOLIC (CONGESTIVE) HRT FAIL (14) Renal insufficiency Code(s): N28.9 - DISORDER OF KIDNEY AND URETER, UNSPECIFIED
[2016-08-28 14:39] VITALS: BP 106/71; PULSE 74
--- NOTE | 2016-08-28 15:03 | PN ---
Teaching Attending Note Name of Resident: Joaquin Whitmore ATTENDING PHYSICIAN STATEMENT I saw and evaluated the patient. I reviewed the resident's note and discussed the case with the resident. I agree with the resident's findings and plan as documented. SUBJECTIVE: no fever or chills, no SOB , feels back to base line OBJECTIVE: NAD CV: RRR, no JVD Lungs : CTAB Ext : trace edema ASSESSMENT AND PLAN: 61 y/o man with /o HTN, A fib, CABG , CAD , chronic Systolic and diastolic heart failure , s/p AICD and other problems who presented with SOB , he was found to beb in HAR[place] and acute CHF 1- Acute on chronic Systolic and diastolic heart failure : diuresed well with 80 of IV lasix, yesterday., His renal functionand SOB improved with diuresis - lasix po daily at home - resume coreg and ARB . 2- Bradycardia : resolved . interrogation of AICD was done . - Resume coreg at 12.5 until he see card - no events on tele 3- HARMAN :due to pre-renal a resolved . resume ARB 4- A fib: cont eliquis.and decrease dose of home BB. 5-CAD : s/p CABG . cont ASA and plavix dc home
--- NOTE | 2016-08-28 15:15 | DS ---
Physical Exam: SUBJECTIVE: Patient seen and examined OBJECTIVE: Vital Signs Period Temp Pulse Resp BP Sys/Villalobos Pulse Ox Last 24 Hr 97.7 F-98.7 F 55-74 18-20 92-132/47-71 92-99 PHYSICAL EXAM GENERAL: Awake, alert, and fully oriented, in no acute distress. HEAD: Normal with no signs of trauma. EYES: Pupils equal, round and reactive to light, extraocular movements intact, sclera anicteric, conjunctiva clear. EARS, NOSE, THROAT: Moist mucous membranes. NECK: Normal range of motion, supple without JVD, or masses. LUNGS: CTAB HEART: Irregular ABDOMEN: Soft, nontender, not distended, normoactive bowel sounds, no guarding, no rebound MUSCULOSKELETAL: No CVA tenderness. UPPER EXTREMITIES: warm, well-perfused. No peripheral edema. LOWER EXTREMITIES: warm, well-perfused. No calf tenderness. no edema NEUROLOGICAL: Cranial nerves II-XII grossly intact. Normal speech. PSYCHIATRIC: Cooperative. Good eye contact. Appropriate mood and affect. SKIN: Warm, dry, normal turgor, no rashes or lesions noted LABS Laboratory Results - last 24 hr 08/27/16 08/27/16 08/28/16 16:26 21:43 05:58 Sodium 138 Potassium 4.2 Chloride 100 Carbon Dioxide 32 Anion Gap 6 L BUN 36 H Creatinine 1.2 D POC Glucometer 149 156 Random Glucose 122 H Calcium 8.4 L Magnesium 1.9 08/28/16 08/28/16 06:44 11:52 Sodium Potassium Chloride Carbon Dioxide Anion Gap BUN Creatinine POC Glucometer 125 117 Random Glucose Calcium Magnesium HOSPITAL COURSE: Date of Admission:08/26/16 Date of Discharge: 08/28/16 61M with multiple medical problems including HTN HLD DM COPD ON 3l nc AT HOME SHELDON AICD s/p CABG Chronic Combined systolic diastolic CHF presents with CHF exacerbation. Had worsening MORRIS increased leg swelling . also had HARMAN when he presented Cr. Three now resolved. cardiologys consulted r/o for ACS given diuresis with lasix with which he improved with and had AICD interrogated and it was working properly. Patient felt significantly better and wants to go home. Had pre and post done which shows he needs to O2. 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 Kapoor See your primary care doctor and see Dr. Link If your symptoms come back go to the nearest emergency room It was a pleasure taking care of you Good luck Dr. Whitmore Referrals: Vishal Quintero MD [Primary Care Provider] - 1 Week Morris Queen MD [Staff Physician] - 1 Week Sujit Link MD [Staff Physician] - 2 Weeks Disposition: HOME - Home Medications Comprehensive Discharge Medication List: Ambulatory Orders Apixaban [Eliquis] 5 mg PO BID 07/26/15 Aspirin [ASA -] 81 mg PO DAILY 07/26/15 Sitagliptin Phos/Metformin HCl [Janumet 50-1,000 mg Tablet] 1 tab PO BID Gabapentin [Neurontin -] 400 mg PO BID capsule 11/14/15 Levothyroxine [Synthroid -] 25 mcg PO DAILY@0700 tablet 11/14/15 Atorvastatin Ca [Lipitor] 20 mg PO DAILY 01/18/16 Clopidogrel Bisulfate [Plavix -] 75 mg PO DAILY 01/18/16 Glipizide [Glucotrol -] 5 mg PO BID 01/18/16 Losartan Potassium [Cozaar -] 50 mg PO DAILY 01/18/16 Spironolactone [Aldactone -] 25 mg PO DAILY 01/18/16 Carvedilol [Coreg -] 12.5 mg PO BID #60 tablet 08/28/16 Furosemide [Lasix -] 40 mg PO DAILY #30 tablet 08/28/16 This patient is new to me today: No Emergency Visit: Yes ED Registration Date: 08/26/16 Care time: The patient presented to the Emergency Department on the above date and was hospitalized for further evaluation of their emergent condition. Critical Care patient: No - Discharge Referral Referred to [facility] Med P.C.: No
== END 2016-08-28 15:44 | disposition home or self-care (01) | DRG 194 ==
LOC: JER 10:00 → JERBED 12:48 → J4W 17:45
PROVIDERS: ADMIT Internal Medicine; ATTEND Internal Medicine
DX: I13.0 Hypertensive heart and chronic kidney disease with heart failure and stage 1 through stage 4 chronic kidney disease, or unspecified chronic kidney disease (principal); I50.43 Acute on chronic combined systolic (congestive) and diastolic (congestive) heart failure; E11.22 Type 2 diabetes mellitus with diabetic chronic kidney disease; J44.9 Chronic obstructive pulmonary disease, unspecified; E78.00 Pure hypercholesterolemia, unspecified; I48.0 Paroxysmal atrial fibrillation; N17.9 Acute kidney failure, unspecified; I25.10 Atherosclerotic heart disease of native coronary artery without angina pectoris; R00.1 Bradycardia, unspecified; G47.33 Obstructive sleep apnea (adult) (pediatric); I48.92 Unspecified atrial flutter; E03.9 Hypothyroidism, unspecified; I25.5 Ischemic cardiomyopathy; N18.9 Chronic kidney disease, unspecified; I45.2 Bifascicular block; E83.42 Hypomagnesemia; E66.01 Morbid (severe) obesity due to excess calories; Z68.41 Body mass index [BMI] 40.0-44.9, adult; Z71.3 Dietary counseling and surveillance; Z95.1 Presence of aortocoronary bypass graft; Z99.81 Dependence on supplemental oxygen; Z95.810 Presence of automatic (implantable) cardiac defibrillator; Z95.5 Presence of coronary angioplasty implant and graft; Z87.891 Personal history of nicotine dependence
CPT/HCPCS: 36415; 71010-TC; 76775-TC; 76856-TC; 80048; 80053; 80162; 81003; 82550; 83036; 83735; 83880; 84100; 84443; 84484; 85025; 85027; 85610; 93005; 93010; 93306-TC; 94660; 94761; 99284-25; G0008; Q2037

== ENCOUNTER 2017-03-20 10:01 | Inpatient (IN) | payer OTHER ==
[2017-03-20 10:14] VITALS: BMI 38.8
--- NOTE | 2017-03-20 10:20 | PDOC ---
History of Present Illness - General Chief Complaint: Shortness of Breath Stated Complaint: SOB Time Seen by Provider: 03/20/17 10:19 History Source: Patient - History of Present Illness Initial Comments: 03/20/17 11:14 Patient is a 61 y.o. male who presents with 2 day h/o shortness of breath. Patient state the dyspnea started after walking his dog outside on Thursday () and resolved with rest. Patient again became dyspneic during his scheduled exercise session the following day and again resolved with rest. Patient denies any associated chest pain as well as fever, chills, nausea, vomiting or diarrhea. On repeat exam patient does endorse black stools. 03/21/17 09:56 Past History - Past Medical History Allergies/Adverse Reactions: Allergies Allergy/AdvReac Type Severity Reaction Status Date / Time No Known Drug Allergies Allergy Verified 03/20/17 10:56 Home Medications: Ambulatory Orders Apixaban [Eliquis] 5 mg PO BID 07/26/15 Aspirin [ASA -] 81 mg PO DAILY 07/26/15 Sitagliptin Phos/Metformin HCl [Janumet 50-1,000 mg Tablet] 1 tab PO BID Gabapentin [Neurontin -] 400 mg PO BID capsule 11/14/15 Levothyroxine [Synthroid -] 25 mcg PO DAILY@0700 tablet 11/14/15 Atorvastatin Ca [Lipitor] 20 mg PO DAILY 01/18/16 Clopidogrel Bisulfate [Plavix -] 75 mg PO DAILY 01/18/16 Glipizide [Glucotrol -] 5 mg PO BID 01/18/16 Losartan Potassium [Cozaar -] 50 mg PO DAILY 01/18/16 Spironolactone [Aldactone -] 25 mg PO DAILY 01/18/16 Furosemide [Lasix -] 40 mg PO DAILY #30 tablet 08/28/16 Carvedilol [Coreg -] 6.25 mg PO BID 03/20/17 Cardiac Disorders: Yes (cardiac stent, defib, cardiomyopathy, CABG 4) COPD: Yes (3 L o2) CHF: Yes Diabetes: Yes HTN: Yes Hypercholesterolemia: Yes - Surgical History Cardiac Surgery: Yes (cardiac stent x1, CAGB 4, PACEMAKER/DEFIB) Orthopedic Surgery: No - Immunization History Immunization Up to Date: Yes - Suicide/Smoking/Psychosocial Hx Smoking Status: No Smoking History: Former smoker Years of Tobacco Use: 20 Have you smoked in the past 12 months: No Number of Cigarettes Smoked Daily: 0 If you are a former smoker, when did you quit?: 2008 Information on smoking cessation initiated: No 'Breaking Loose' booklet given: 05/30/12 Hx Alcohol Use: No Drug/Substance Use Hx: No Substance Use Type: None Hx Substance Use Treatment: No Review of Systems - Review of Systems Constitutional: No: Chills, Fever Respiratory: Yes: Cough (non-productive, associated w/cold air), Shortness of Breath Cardiac (ROS): Yes: Lightheadedness. No: Chest Pain, Palpitations, Syncope ABD/GI: Yes: Tarry Stools. No: Constipated, Diarrhea, Nausea, Vomiting : No: Burning, Dysuria All Other Systems: Reviewed and Negative *Physical Exam - Vital Signs Last Vital Signs Temp Pulse Resp BP Pulse Ox 98.1 F 70 15 90/56 94 L 03/20/17 10:10 03/20/17 10:10 03/20/17 10:10 03/20/17 10:10 03/20/17 10:10 - Physical Exam General Appearance: Yes: Nourished, Obese Respiratory/Chest: positive: Lungs Clear, Normal Breath Sounds. negative: Crackles, Rales, Rhonchi, Stridor, Wheezing Cardiovascular: positive: S1, S2. negative: Edema Gastrointestinal/Abdominal: positive: Soft, Distended. negative: Guarding, Rebound, Tenderness, Hernia, Mass Rectal Exam: positive: heme negative stool Extremity: positive: Normal Capillary Refill, Normal Inspection Integumentary: positive: Normal Color, Dry, Warm Neurologic: positive: Fully Oriented, Alert ED Treatment Course - LABORATORY CBC & Chemistry Diagram: 03/21/17 06:00 03/21/17 06:00 Medical Decision Making - Medical Decision Making 03/21/17 10:03 Patient is a 61 y.o. male with a PMH of CHF, COPD (on 3L NC @ home) HTN, NIDDM, CAD and SHELDON who presents with dyspnea on exertion. Initial DDx is for COPD and/ or CHF exacerbation, however patient's CBC significant for Hb 7.1. FOBT (@ bedside) negative. Patient to recieve 1 unit PRBC + subsequent Lasix diuresis and admit to inpatient telemetry for further evaluation. *DC/Admit/Observation/Transfer Diagnosis at time of Disposition: CHF Congestive heart failure - Referrals - Patient Instructions - Post Discharge Activity
[2017-03-20 10:56] LABS: BASOPHIL 0.5 % (0-2.0); EOSINOPHIL 1.5 % (0-4.5); MEAN CELL VOLUME 90.7 fl (80-96); MEAN PLT VOLUME 8.3 fl (7.5-11.1); NEUTROPHILS 71.7 % (42.8-82.8); PLATELET COUNT 204 K/MM3 (134-434); RDW 23.9 % (11.9-15.9); WHITE BLOOD COUNT 5.9 K/mm3 (4.0-10.0)
--- NOTE | 2017-03-20 10:57 | PDOC ---
Attending Attestation - Resident Resident Name: Sadaf Toribio - ED Attending Attestation I have performed the following: I have examined & evaluated the patient, The case was reviewed & discussed with the resident, I agree w/resident's findings & plan, Exceptions are as noted - HPI HPI: 03/20/17 10:51 61yo M hx HTN, HL, IDDM, COPD on 3L home O2, SHELDON, CABG s/p AICD, CHF p/w SOB for 5 days. SOB began when he walked his dog 5 days ago. He noticed reduced ET from 40 mins to 10 mins at his exercise class 4 days ago. Denies CP, F/C, N/V/D , urinary sxs. Reports dark stools without amna blood. Also notes decreased PO intake this week. Pt reports compliance with medications including diuretics. - Physicial Exam PE: 03/20/17 10:54 GENERAL: Awake, alert, and fully oriented, in no acute distress. Appears pale HEAD: No signs of trauma EYES: PERRLA, EOMI, sclera anicteric, conjunctiva clear ENT: Auricles normal inspection, hearing grossly normal, nares patent, oropharynx clear without exudates. Moist mucosa NECK: Normal ROM, supple, no lymphadenopathy, JVD, or masses LUNGS: Breath sounds diminished throughout, however exam limited by body habitus. No wheezes, and no crackles HEART: Regular rate and rhythm, normal S1 and S2, no murmurs, rubs or gallops ABDOMEN: Soft, nontender, normoactive bowel sounds. No guarding, no rebound. No masses EXTREMITIES: Normal range of motion, no edema. No clubbing or cyanosis. No cords, erythema, or tenderness NEUROLOGICAL: Normal speech, cranial nerves intact, negative pronator drift, 5/ 5 strength in all 4 extremities, normal sensation to light touch in all 4 extremities, normal cerebellar exam, normal gait, normal reflexes and tone SKIN: Warm, Dry, normal turgor, no rashes or lesions noted. - Medical Decision Making 03/20/17 11:24 61yo M with MMP including COPD, CAD, CHF p/w SOB. Vitals wnl. Exam with pale appearance and diminished BS. DDx wide includes anemia vs copd exac vs chf exac vs CAD -labs -CXR -stool occult -likely admit 03/20/17 16:45 Hemoglobin 7 which is down from 10. Guaiac stool positive. pRBC ordered, just 1 unit given CHF and elevated BNP today. Unclear reason for GI bleed, however pt has not had colonoscopy and thus colon ca a possibility. Pt aware of concern of cancer and need for colonoscopy. GI has been consulted by Dr. Rm and will see patient. Case discussed in detail with admitting physician including history, physical exam and ancillary studies. Admitting physician has assumed care for the patient, will follow all pending diagnostics and will complete the evaluation and treatment. Heart Score/ECG Review #1 03/20/17 12:35 Twelve-lead EKG was performed and reviewed by me. V paced rhythm rate 70.
[2017-03-20 11:39] LABS: ALBUMIN 3.6 g/dl (3.4-5.0); ANION GAP 9 (8-16); BILIRUBIN,TOTAL 1.1 mg/dL (0.2-1.0); CO2 30 mmol/L (21-32); CREATININE 1.5 mg/dL (0.7-1.3); GLUCOSE,RANDOM 127 mg/dL (74-106); MAGNESIUM 1.8 mg/dL (1.8-2.4); SGOT/AST 9 U/L (15-37); SGPT/ALT 14 U/L (12-78); TOT PROT 7.3 g/dl (6.4-8.2)
[2017-03-20 11:42] LABS: ALK PHOS 82 U/L (45-117); CPK 40 IU/L (39-308); TROPONIN I < 0.02 ng/ml (0.00-0.05)
[2017-03-20 11:56] LABS: INR 2.34 (0.82-1.09); PROTHROMBIN TIME (PATIENT) 26.4 SEC (9.98-11.88)
--- NOTE | 2017-03-20 13:34 | HP ---
CHIEF COMPLAINT:Worsening SOB PCP: Dr. Quintero HISTORY OF PRESENT ILLNESS: 61 yo M with PMHx of CHF, COPD(home O2 dependent 3L), h/o Afib on eliquis, SHELDON, CAD, HTN, HLD, DMII presents with 2 day history of worsening SOB. He states for the past few days he has gotten progressively more short of breath to the point with minimal exertion he struggled to catch his breath. No increase in leg swelling but does endorse orthopnea and sleeps in chair. He has CPAP machine which he claims to use everynight but despite normal home treatments has remained sob. He also mentions that for the past week he as had 2-3 black tarry stools. History of Afib on Eliquis as well as ASA/Plavix. Denies amna red blood but his most recent BM yesterday was dark black.Denies CP, SHI, Palpitations, abdominal pain, N/V, fever or chills. ER course was notable for: (1) BNP twice his baseline (2)Hgb 7.1 - baseline 11 (3)FOBT (+) Recent Travel:denies PAST MEDICAL HISTORY:CHF, COPD, SHELDON, CAD, HTN, HLD, DMII PAST SURGICAL HISTORY:AICD and CABG Social History: Smoking:QUit 8 yrs ago 30pack year history Alcohol:denies Drugs:denies Family History: No history of Colon Ca. Allergies No Known Drug Allergies Allergy (Verified 03/20/17 10:56) HOME MEDICATIONS: Home Medications Medication Instructions Recorded Apixaban [Eliquis] 5 mg PO BID 07/26/15 Aspirin [ASA -] 81 mg PO DAILY 07/26/15 Sitagliptin Phos/Metformin HCl 1 tab PO BID 07/26/15 [Janumet 50-1,000 mg Tablet] Gabapentin [Neurontin -] 400 mg PO BID capsule 11/14/15 Levothyroxine [Synthroid -] 25 mcg PO DAILY@0700 tablet 11/14/15 Atorvastatin Ca [Lipitor] 20 mg PO DAILY 01/18/16 Clopidogrel Bisulfate [Plavix -] 75 mg PO DAILY 01/18/16 Glipizide [Glucotrol -] 5 mg PO BID 01/18/16 Losartan Potassium [Cozaar -] 50 mg PO DAILY 01/18/16 Spironolactone [Aldactone -] 25 mg PO DAILY 01/18/16 Furosemide [Lasix -] 40 mg PO DAILY #30 tablet 08/28/16 Carvedilol [Coreg -] 6.25 mg PO BID 03/20/17 REVIEW OF SYSTEMS CONSTITUTIONAL: Absent: fever, chills, diaphoresis, generalized weakness, malaise, loss of appetite, weight change HEENT: Absent: rhinorrhea, nasal congestion, throat pain, throat swelling, difficulty swallowing, mouth swelling, ear pain, eye pain, visual changes CARDIOVASCULAR: Absent: chest pain, syncope, palpitations, irregular heart rate, lightheadedness , peripheral edema RESPIRATORY: shortness of breath, dyspnea with exertion, orthopnea Absent: cough, , wheezing, stridor, hemoptysis GASTROINTESTINAL:melena Absent: abdominal pain, abdominal distension, nausea, vomiting, diarrhea, constipation, , hematochezia GENITOURINARY: Absent: dysuria, frequency, urgency, hesitancy, hematuria, flank pain, genital pain MUSCULOSKELETAL: Absent: myalgia, arthralgia, joint swelling, back pain, neck pain SKIN: Absent: rash, itching, pallor HEMATOLOGIC/IMMUNOLOGIC: Absent: easy bleeding, easy bruising, lymphadenopathy, frequent infections ENDOCRINE: Absent: unexplained weight gain, unexplained weight loss, heat intolerance, cold intolerance NEUROLOGIC: Absent: headache, focal weakness or paresthesias, dizziness, unsteady gait, seizure, mental status changes, bladder or bowel incontinence PSYCHIATRIC: Absent: anxiety, depression, suicidal or homicidal ideation, hallucinations. PHYSICAL EXAMINATION Vital Signs - 24 hr 03/20/17 03/20/17 03/20/17 10:10 10:40 10:59 Temperature 98.1 F Pulse Rate 70 78 72 Respiratory 15 Rate Blood Pressure 90/56 Blood Pressure 93/56 [Right Arm] O2 Sat by Pulse 94 L 92 L 92 L Oximetry (%) 03/20/17 11:03 Temperature Pulse Rate Respiratory Rate Blood Pressure Blood Pressure [Right Arm] O2 Sat by Pulse 92 L Oximetry (%) GENERAL:AAOx3 , NAD HEAD: NC/AT EYES: PERRLA,EOMI sclera anicteric, conjunctiva clear. No lid lag. EARS, NOSE, THROAT: dry mucous membranes. NECK:supple, JVD(+) LUNGS: bibasilar rales, diminshed breath sounds at bases, no wheezing HEART: RRR, S1S2, No M/G/R ABDOMEN: Soft, NT/ND, normoactive bowel sounds, no guarding, no rebound, no masses. No hepatomegaly or splenomegaly. MUSCULOSKELETAL: No CVA tenderness. UPPER EXTREMITIES: 2+ pulses, warm, well-perfused. No cyanosis. No clubbing. No peripheral edema. LOWER EXTREMITIES: 2+ pulses, warm, well-perfused. No calf tenderness. trace peripheral edema. NEUROLOGICAL: Cranial nerves II-XII intact. Normal speech. PSYCHIATRIC: Cooperative. Good eye contact. Appropriate mood and affect. SKIN: Warm, dry, normal turgor, no rashes or lesions noted, normal capillary refill. Laboratory Results - last 24 hr 03/20/17 03/20/17 03/20/17 10:51 10:51 10:51 WBC 5.9 D RBC 2.46 L D Hgb 7.1 L D Hct 22.3 L D MCV 90.7 MCH 29.0 MCHC 32.0 RDW 23.9 H D Plt Count 204 D MPV 8.3 Neutrophils % 71.7 Lymphocytes % 18.3 Monocytes % 8.0 Eosinophils % 1.5 Basophils % 0.5 PT with INR INR PTT (Actin FS) Sodium 141 Potassium 3.7 Chloride 102 Carbon Dioxide 30 Anion Gap 9 BUN 34 H Creatinine 1.5 H D Creat Clearance w eGFR 47.90 Random Glucose 127 H Calcium 8.0 L Magnesium 1.8 Total Bilirubin 1.1 H D AST 9 L D ALT 14 D Alkaline Phosphatase 82 Creatine Kinase 40 Troponin I < 0.02 B-Natriuretic Peptide 2010.07 H Total Protein 7.3 Albumin 3.6 Blood Type Antibody Screen Crossmatch 03/20/17 03/20/17 11:14 11:14 WBC RBC Hgb Hct MCV MCH MCHC RDW Plt Count MPV Neutrophils % Lymphocytes % Monocytes % Eosinophils % Basophils % PT with INR 26.40 H INR 2.34 H D PTT (Actin FS) 39.0 H Sodium Potassium Chloride Carbon Dioxide Anion Gap BUN Creatinine Creat Clearance w eGFR Random Glucose Calcium Magnesium Total Bilirubin AST ALT Alkaline Phosphatase Creatine Kinase Troponin I B-Natriuretic Peptide Total Protein Albumin Blood Type A NEGATIVE Antibody Screen Negative Crossmatch See Detail ASSESSMENT/PLAN: 61 yo M with PMHx of CHF, COPD(home O2 dependent 3L), SHELDON, CAD, HTN, HLD, DMII will be admitted to telemetry for acute on chronic CHF and symptomatic anemia with possible upper GI bleed. Problem List - Problem (1) Acute on chronic congestive heart failure Assessment/Plan: May be a result of blood loss. * Echo pending, * Cardiology consulted. * Admit to telemetry * daily weights. * strict I/O's (2) Symptomatic anemia Assessment/Plan: May be 2/2 upper GI bleed. * NPO for now, * will hold AC for now. * PPI 40 mg BID * Dr. Lozano GI consult for possible EGD * 2 units PRBC's ordered --> will give 40 mg IV lasix after transfusion, * repeat CBC (3) HTN (hypertension) Assessment/Plan: * Carvedilol (Coreg -) 6.25 mg PO BID * Furosemide (Lasix -) 40 mg PO DAILY JOSE (4) Hyperlipidemia (5) Hypothyroid Assessment/Plan: Will continue Levothyroxine at current dose. (6) S/P CABG (coronary artery bypass graft) (7) S/P implantation of automatic cardioverter/defibrillator (AICD) (8) COPD (chronic obstructive pulmonary disease) Assessment/Plan: Well controlled at this time. * Supplemental O2 PRN maintain SpO2>90% * Albuterol INH PRN (9) DVT prophylaxis Assessment/Plan: Contraindication is active bleeding. * AC held at this time. Visit type - Emergency Visit Emergency Visit: Yes ED Registration Date: 03/20/17 Care time: The patient presented to the Emergency Department on the above date and was hospitalized for further evaluation of their emergent condition. - New Patient This patient is new to me today: Yes Date on this admission: 03/23/17 - Critical Care Critical Care patient: No
[2017-03-20] MEDS ORDERED: HEPARIN NA (PORCINE) 5,000 UNITS/ML 1ML VIAL SQ SCH (14:00)
[2017-03-20] MEDS ORDERED: PANTOPRAZOLE SODIUM 40 MG VIAL IVPUSH SCH (15:00)
--- NOTE | 2017-03-20 15:25 | CON.CARD ---
Consult - History of Present Illness History of Present Illness: 61yo M hx HTN, HL, IDDM, COPD on 3L home O2, SHELDON, CABG s/p AICD, CHF p/w SOB for 5 days. SOB began when he walked his dog 5 days ago. He noticed reduced ET from 40 mins to 10 mins at his exercise class 4 days ago. Denies CP, F/C, N/V/D , urinary sxs. Reports dark stools without amna blood. Also notes decreased PO intake this week. Pt reports compliance with medications including diuretics. PMH Surgical History: CABG 06/2014 at [facility] (4VD) ICD 2016 Medical History: Diabetes Mellitus (DM) HTN hyperlipidemia obesity obstructive sleep apnea syndrome (OSAS) paroxysmal atrial fibrillation (PAF) s/p CABG 06/2014 (denies hx DE), with moderately severe systolic LV dysfunction noted at [facility] on that admision-->ICD. - Past Medical History Cardio/Vascular: Yes: AFIB, CAD, CHF, HTN, Hyperlipdemia Pulmonary: Yes: COPD, Sleep Apnea. No: Asthma, Bronchitis, Cancer, O2 Dependent , Pneumonia, Previously Intubated, Pulmonary Embolus, Pulmonary Fibrosis, Other Renal/: Yes: Renal Inusuff (recent; ?prerenal azotemia) Endocrine: Yes: Diabetes Mellitus. No: Denali's Disease, Lurdes's Disease, Diabetes Insipidus, Hyperparathyroidism, Hyperthyroidism, Hypothyroidism, Osteopenia, SIADH, Other - Alcohol/Substance Use Hx Alcohol Use: No - Smoking History Smoking history: Former smoker Have you smoked in the past 12 months: No Aproximately how many cigarettes per day: 0 If you are a former smoker, when did you quit?: 2008 - Social History Usual Living Arrangement: With Spouse Home Medications - Allergies Allergies/Adverse Reactions: Allergies Allergy/AdvReac Type Severity Reaction Status Date / Time No Known Drug Allergies Allergy Verified 03/20/17 10:56 - Home Medications Home Medications: Ambulatory Orders Apixaban [Eliquis] 5 mg PO BID 07/26/15 Aspirin [ASA -] 81 mg PO DAILY 07/26/15 Sitagliptin Phos/Metformin HCl [Janumet 50-1,000 mg Tablet] 1 tab PO BID Gabapentin [Neurontin -] 400 mg PO BID capsule 11/14/15 Levothyroxine [Synthroid -] 25 mcg PO DAILY@0700 tablet 11/14/15 Atorvastatin Ca [Lipitor] 20 mg PO DAILY 01/18/16 Clopidogrel Bisulfate [Plavix -] 75 mg PO DAILY 01/18/16 Glipizide [Glucotrol -] 5 mg PO BID 01/18/16 Losartan Potassium [Cozaar -] 50 mg PO DAILY 01/18/16 Spironolactone [Aldactone -] 25 mg PO DAILY 01/18/16 Furosemide [Lasix -] 40 mg PO DAILY #30 tablet 08/28/16 Carvedilol [Coreg -] 6.25 mg PO BID 03/20/17 Review of Systems - Review of Systems Constitutional: reports: No Symptoms Eyes: reports: No Symptoms HENT: reports: No Symptoms Neck: reports: No Symptoms Cardiovascular: reports: No Symptoms Gastrointestinal: reports: No Symptoms Genitourinary: reports: No Symptoms Breasts: reports: No Symptoms Reported Musculoskeletal: reports: No Symptoms Integumentary: reports: No Symptoms Neurological: reports: No Symptoms Endocrine: reports: No Symptoms Hematology/Lymphatic: reports: No Symptoms Psychiatric: reports: No Symptoms Vital Signs: Vital Signs Temperature 97.6 F 03/20/17 14:19 Pulse Rate 71 03/20/17 14:19 Respiratory Rate 18 03/20/17 14:19 Blood Pressure 90/42 03/20/17 14:19 O2 Sat by Pulse Oximetry (%) 96 03/20/17 14:19 Constitutional: Yes: Well Nourished, No Distress, Calm Eyes: Yes: WNL, Conjunctiva Clear, EOM Intact HENT: Yes: WNL, Atraumatic, Normocephalic Neck: Yes: WNL, Supple, Trachea Midline Respiratory: Yes: WNL, Regular, CTA Bilaterally Gastrointestinal: Yes: WNL, Normal Bowel Sounds Renal/: Yes: WNL Cardiovascular: Yes: WNL, Regular Rate and Rhythm Musculoskeletal: Yes: WNL Extremities: Yes: WNL Integumentary: Yes: WNL Neurological: Yes: WNL, Alert, Oriented ...Motor Strength: WNL Psychiatric: Yes: WNL, Alert, Oriented - Other Data Labs, Other Data: CBC, BMP 03/20/17 10:51 03/20/17 10:51 INR, PTT INR 2.34 (0.82-1.09) H D 03/20/17 11:14 Troponin, BNP 03/20/17 03/20/17 10:51 10:51 Troponin I < 0.02 B-Natriuretic Peptide 2009.07 H Troponin, BNP 03/20/17 03/20/17 10:51 10:51 Troponin I < 0.02 B-Natriuretic Peptide 2010.07 H Imaging - Results Chest X-ray: Pending EKG: Pending Problem List - Problems (1) Acute on chronic congestive heart failure Code(s): I50.9 - HEART FAILURE, UNSPECIFIED Qualifiers: Congestive heart failure type: combined Qualified Code(s): I50.43 - Acute on chronic combined systolic (congestive) and diastolic (congestive) heart failure (2) Symptomatic anemia Code(s): D64.9 - ANEMIA, UNSPECIFIED (3) CHF (congestive heart failure), NYHA class III Code(s): I50.9 - HEART FAILURE, UNSPECIFIED (4) Congestive heart failure Code(s): I50.9 - HEART FAILURE, UNSPECIFIED Qualifiers: Congestive heart failure type: unspecified congestive heart failure type Congestive heart failure chronicity: acute on chronic Qualified Code(s): I50.9 - Heart failure, unspecified (5) HTN (hypertension) Code(s): I10 - ESSENTIAL (PRIMARY) HYPERTENSION Qualifiers: Hypertension type: essential hypertension Qualified Code(s): I10 - Essential (primary) hypertension (6) Hyperlipidemia Code(s): E78.5 - HYPERLIPIDEMIA, UNSPECIFIED Qualifiers: Hyperlipidemia type: unspecified Qualified Code(s): E78.5 - Hyperlipidemia , unspecified (7) Hypothyroid Code(s): E03.9 - HYPOTHYROIDISM, UNSPECIFIED Qualifiers: Hypothyroidism type: acquired Qualified Code(s): E03.9 - Hypothyroidism, unspecified (8) Metabolic syndrome Code(s): E88.81 - METABOLIC SYNDROME (9) Morbid obesity Code(s): E66.01 - MORBID (SEVERE) OBESITY DUE TO EXCESS CALORIES (10) Pulmonary hypertension Code(s): I27.2 - OTHER SECONDARY PULMONARY HYPERTENSION * DO NOT USE * (11) Renal insufficiency Code(s): N28.9 - DISORDER OF KIDNEY AND URETER, UNSPECIFIED (12) S/P CABG (coronary artery bypass graft) Code(s): Z95.1 - PRESENCE OF AORTOCORONARY BYPASS GRAFT (13) S/P implantation of automatic cardioverter/defibrillator (AICD) Code(s): Z95.810 - PRESENCE OF AUTOMATIC (IMPLANTABLE) CARDIAC DEFIBRILLATOR (14) Sleep apnea Code(s): G47.30 - SLEEP APNEA, UNSPECIFIED Qualifiers: Sleep apnea type: unspecified type Qualified Code(s): G47.30 - Sleep apnea , unspecified (15) Systolic and diastolic CHF w/reduced LV function, NYHA class 4 Code(s): I50.40 - UNSP COMBINED SYSTOLIC AND DIASTOLIC (CONGESTIVE) HRT FAIL (16) Trifascicular bundle branch block Code(s): I45.3 - TRIFASCICULAR BLOCK (17) ASHD (arteriosclerotic heart disease) Code(s): I25.10 - ATHSCL HEART DISEASE OF [place] CORONARY ARTERY W/O ANG PCTRS (18) Atrial fib/flutter, transient Code(s): UAU6201 - (19) Atrial fibrillation Code(s): I48.91 - UNSPECIFIED ATRIAL FIBRILLATION (20) Bifascicular block Code(s): I45.2 - BIFASCICULAR BLOCK (21) COPD (chronic obstructive pulmonary disease) Code(s): J44.9 - CHRONIC OBSTRUCTIVE PULMONARY DISEASE, UNSPECIFIED Qualifiers: COPD type: chronic bronchitis Chronic bronchitis type: simple Qualified Code(s): J41.0 - Simple chronic bronchitis (22) Cellulitis and abscess of lower extremity Code(s): L02.419 - CUTANEOUS ABSCESS OF LIMB, UNSPECIFIED; L03.119 - CELLULITIS OF UNSPECIFIED PART OF LIMB (23) Diabetes Code(s): E11.9 - TYPE 2 DIABETES MELLITUS WITHOUT COMPLICATIONS (24) AICD discharge Code(s): Z45.02 - ENCNTR FOR ADJUST AND MGMT OF AUTOMATIC IMPLNTBL CARD DEFIB Assessment/Plan GI Bleed decompensated CHF CABG 06/2014 at [facility] (4VD) ICD 2016 Diabetes Mellitus (DM) HTN hyperlipidemia obesity obstructive sleep apnea syndrome (OSAS) paroxysmal atrial fibrillation (PAF) s/p CABG 06/2014 (denies hx DE), with moderately severe systolic LV dysfunction noted at [facility] on that admision-->ICD. Plan hold eliquis and ASA for now restart ac for CVA prevention as soon as OK by GI check ekg bnp cxr prbc transfusion with Lasix gi evaluation
--- NOTE | 2017-03-20 15:43 | CON.GI ---
Consult Consult Specialty:: GI Referred by:: ED Reason for Consultation:: anemia, melena - History of Present Illness History of Present Illness: A 61 yom with extensive cardiopulmonary history became progressively intolerant to even minimal physical activity over the last week to the point of SOB at rest. Denies chest pain, passing out, or lightheadedness. Reports black stools x 1 week. On ASA and Eliquis. Erickson taking NSAIDs. Reports having formed stools. Denies changes in stool caliper, hematochezia, hematemesis, jaundice, fever, unintentional weight loss. Report choric postprandial dyspepsia. Erickson odynophagia, dysphagia, GERD-like symptoms. Never had EGD, or colonoscopy. - Past Medical History Cardio/Vascular: Yes: AFIB, CAD, CHF, HTN, Hyperlipdemia Pulmonary: Yes: COPD, Sleep Apnea. No: Asthma, Bronchitis, Cancer, O2 Dependent , Pneumonia, Previously Intubated, Pulmonary Embolus, Pulmonary Fibrosis, Other Renal/: Yes: Renal Inusuff (recent; ?prerenal azotemia) Endocrine: Yes: Diabetes Mellitus. No: Slava's Disease, [place]'s Disease, Diabetes Insipidus, Hyperparathyroidism, Hyperthyroidism, Hypothyroidism, Osteopenia, SIADH, Other - Alcohol/Substance Use Hx Alcohol Use: No - Smoking History Smoking history: Former smoker Have you smoked in the past 12 months: No Aproximately how many cigarettes per day: 0 If you are a former smoker, when did you quit?: 2008 - Social History Usual Living Arrangement: With Spouse Home Medications - Allergies Allergies/Adverse Reactions: Allergies Allergy/AdvReac Type Severity Reaction Status Date / Time No Known Drug Allergies Allergy Verified 03/20/17 10:56 - Home Medications Home Medications: Ambulatory Orders Apixaban [Eliquis] 5 mg PO BID 07/26/15 Aspirin [ASA -] 81 mg PO DAILY 07/26/15 Sitagliptin Phos/Metformin HCl [Janumet 50-1,000 mg Tablet] 1 tab PO BID Gabapentin [Neurontin -] 400 mg PO BID capsule 11/14/15 Levothyroxine [Synthroid -] 25 mcg PO DAILY@0700 tablet 11/14/15 Atorvastatin Ca [Lipitor] 20 mg PO DAILY 01/18/16 Clopidogrel Bisulfate [Plavix -] 75 mg PO DAILY 01/18/16 Glipizide [Glucotrol -] 5 mg PO BID 01/18/16 Losartan Potassium [Cozaar -] 50 mg PO DAILY 01/18/16 Spironolactone [Aldactone -] 25 mg PO DAILY 01/18/16 Furosemide [Lasix -] 40 mg PO DAILY #30 tablet 08/28/16 Carvedilol [Coreg -] 6.25 mg PO BID 03/20/17 Family Disease History - Family Disease History Family History: Unremarkable Review of Systems Findings/Remarks: Please refer to H&P, HPI Physical Exam-GI Vital Signs: Vital Signs Temperature 97.6 F 03/20/17 14:19 Pulse Rate 71 03/20/17 14:19 Respiratory Rate 18 03/20/17 14:19 Blood Pressure 90/42 03/20/17 14:19 O2 Sat by Pulse Oximetry (%) 96 03/20/17 14:19 Constitutional: Yes: Mild Distress Eyes: Yes: Conjunctiva Clear HENT: Yes: Atraumatic Cardiovascular: Yes: Pulse Irregular Respiratory: Yes: Accessory Muscle Use, Orthopnea, SOB on Exertion. No: Stridor , Tachypnea, Wheezes ...Auscultate: Yes: Normoactive Bowel Sounds ...Palpate: Yes: Soft. No: Firm/Rigid, Guarding, Tenderness, Tenderness, Epigastium, Tenderness, Rebound ...Percussion: No: Fluid Wave ...Rectal Exam: Yes: Deferred Integumentary: No: Jaundice Neurological: Yes: Alert, Oriented ...Motor Strength: WNL Labs: CBC, BMP 03/20/17 10:51 03/20/17 10:51 INR, PTT INR 2.34 (0.82-1.09) H D 03/20/17 11:14 CBCD WBC 5.9 K/mm3 (4.0-10.0) D 03/20/17 10:51 RBC 2.46 M/mm3 (4.00-5.60) L D 03/20/17 10:51 Hgb 7.1 GM/dL (11.7-16.9) L D 03/20/17 10:51 Hct 22.3 % (35.4-49) L D 03/20/17 10:51 MCV 90.7 fl (80-96) 03/20/17 10:51 MCHC 32.0 g/dl (32.0-35.9) 03/20/17 10:51 RDW 23.9 % (11.9-15.9) H D 03/20/17 10:51 Plt Count 204 K/MM3 (134-434) D 03/20/17 10:51 MPV 8.3 fl (7.5-11.1) 03/20/17 10:51 CMP Sodium 141 mmol/L (136-145) 03/20/17 10:51 Potassium 3.7 mmol/L (3.5-5.1) 03/20/17 10:51 Chloride 102 mmol/L (98-107) 03/20/17 10:51 Carbon Dioxide 30 mmol/L (21-32) 03/20/17 10:51 Anion Gap 9 (8-16) 03/20/17 10:51 BUN 34 mg/dL (7-18) H 03/20/17 10:51 Creatinine 1.5 mg/dL (0.7-1.3) H D 03/20/17 10:51 Creat Clearance w eGFR 47.90 (>60) 03/20/17 10:51 Calcium 8.0 mg/dL (8.5-10.1) L 03/20/17 10:51 Total Bilirubin 1.1 mg/dL (0.2-1.0) H D 03/20/17 10:51 AST 9 U/L (15-37) L D 03/20/17 10:51 ALT 14 U/L (12-78) D 03/20/17 10:51 Alkaline Phosphatase 82 U/L (45-117) 03/20/17 10:51 Total Protein 7.3 g/dl (6.4-8.2) 03/20/17 10:51 Albumin 3.6 g/dl (3.4-5.0) 03/20/17 10:51 Imaging - Results Chest X-ray: Pending Problem List - Problems (1) Anemia Code(s): D64.9 - ANEMIA, UNSPECIFIED (2) Gastrointestinal hemorrhage with melena Code(s): K92.1 - MELENA (3) Melena Code(s): K92.1 - MELENA (4) Acute on chronic congestive heart failure Code(s): I50.9 - HEART FAILURE, UNSPECIFIED Qualifiers: Congestive heart failure type: combined Qualified Code(s): I50.43 - Acute on chronic combined systolic (congestive) and diastolic (congestive) heart failure (5) Symptomatic anemia Code(s): D64.9 - ANEMIA, UNSPECIFIED (6) CHF (congestive heart failure), NYHA class III Code(s): I50.9 - HEART FAILURE, UNSPECIFIED (7) Congestive heart failure Code(s): I50.9 - HEART FAILURE, UNSPECIFIED Qualifiers: Congestive heart failure type: unspecified congestive heart failure type Congestive heart failure chronicity: acute on chronic Qualified Code(s): I50.9 - Heart failure, unspecified (8) S/P CABG (coronary artery bypass graft) Code(s): Z95.1 - PRESENCE OF AORTOCORONARY BYPASS GRAFT (9) Sleep apnea Code(s): G47.30 - SLEEP APNEA, UNSPECIFIED Qualifiers: Sleep apnea type: unspecified type Qualified Code(s): G47.30 - Sleep apnea , unspecified (10) Atrial fibrillation Code(s): I48.91 - UNSPECIFIED ATRIAL FIBRILLATION (11) COPD (chronic obstructive pulmonary disease) Code(s): J44.9 - CHRONIC OBSTRUCTIVE PULMONARY DISEASE, UNSPECIFIED Qualifiers: COPD type: chronic bronchitis Chronic bronchitis type: simple Qualified Code(s): J41.0 - Simple chronic bronchitis (12) Diabetes Code(s): E11.9 - TYPE 2 DIABETES MELLITUS WITHOUT COMPLICATIONS Assessment/Plan A 61 yom with significant, chronic cardiopulmonary issues, on ASA and Eliquis, developed decompensated CHF, likely due to chronic GI blood loss anemia. No active GI bleeding at this time. Close monitoring on TELE, or ICU Agree with transfusing to Hgb Above 9 g/dl Hgb q6 hrs PPI po bid Clear liquid diet Urgent EGD, If acute, upper GI bleeding, otherwise plan EGD and colonoscopy once transfused and clinically improved. Stop ASA and Eliquis, as discussed with cardiology, for 3 days prior to the procedures.
--- NOTE | 2017-03-20 16:17 | PN ---
Teaching Attending Note Name of Resident: Dale Rm ATTENDING PHYSICIAN STATEMENT I saw and evaluated the patient. I reviewed the resident's note and discussed the case with the resident. I agree with the resident's findings and plan as documented. SUBJECTIVE: OBJECTIVE: Vital Signs Period Temp Pulse Resp BP Sys/Vill[place]obos Pulse Ox Last 24 Hr 97.5 F-98.4 F 70-78 15-18 90-110/42-80 92-97 Home Medications Medication Instructions Recorded Apixaban [Eliquis] 5 mg PO BID 07/26/15 Aspirin [ASA -] 81 mg PO DAILY 07/26/15 Sitagliptin Phos/Metformin HCl 1 tab PO BID 07/26/15 [Janumet 50-1,000 mg Tablet] Gabapentin [Neurontin -] 400 mg PO BID capsule 11/14/15 Levothyroxine [Synthroid -] 25 mcg PO DAILY@0700 tablet 11/14/15 Atorvastatin Ca [Lipitor] 20 mg PO DAILY 01/18/16 Clopidogrel Bisulfate [Plavix -] 75 mg PO DAILY 01/18/16 Glipizide [Glucotrol -] 5 mg PO BID 01/18/16 Losartan Potassium [Cozaar -] 50 mg PO DAILY 01/18/16 Spironolactone [Aldactone -] 25 mg PO DAILY 01/18/16 Furosemide [Lasix -] 40 mg PO DAILY #30 tablet 08/28/16 Carvedilol [Coreg -] 6.25 mg PO BID 03/20/17 Laboratory Tests 03/20/17 03/20/17 03/20/17 10:51 10:51 10:51 WBC 5.9 D RBC 2.46 L D Hgb 7.1 L D Hct 22.3 L D MCV 90.7 MCH 29.0 MCHC 32.0 RDW 23.9 H D Plt Count 204 D MPV 8.3 Neutrophils % 71.7 Lymphocytes % 18.3 Monocytes % 8.0 Eosinophils % 1.5 Basophils % 0.5 PT with INR INR PTT (Actin FS) Sodium 141 Potassium 3.7 Chloride 102 Carbon Dioxide 30 Anion Gap 9 BUN 34 H Creatinine 1.5 H D Creat Clearance w eGFR 47.90 Random Glucose 127 H Calcium 8.0 L Magnesium 1.8 Total Bilirubin 1.1 H D AST 9 L D ALT 14 D Alkaline Phosphatase 82 Creatine Kinase 40 Troponin I < 0.02 B-Natriuretic Peptide 07 H Total Protein 7.3 Albumin 3.6 Blood Type Antibody Screen Crossmatch 03/20/17 03/20/17 11:14 11:14 WBC RBC Hgb Hct MCV MCH MCHC RDW Plt Count MPV Neutrophils % Lymphocytes % Monocytes % Eosinophils % Basophils % PT with INR 26.40 H INR 2.34 H D PTT (Actin FS) 39.0 H Sodium Potassium Chloride Carbon Dioxide Anion Gap BUN Creatinine Creat Clearance w eGFR Random Glucose Calcium Magnesium Total Bilirubin AST ALT Alkaline Phosphatase Creatine Kinase Troponin I B-Natriuretic Peptide Total Protein Albumin Blood Type A NEGATIVE Antibody Screen Negative Crossmatch See Detail ASSESSMENT AND PLAN:
[2017-03-20] MEDS: SUCRALFATE 1 GM/10 ML UNIT DOSE CUPS PO SCH ×2 (17:27→21:10)
[2017-03-20] MEDS: PANTOPRAZOLE 40 MG TABLET (FP) PO SCH ×2 (17:27→21:09)
[2017-03-20] MEDS ORDERED: FUROSEMIDE 40 MG/4 ML INJECTABLE VIAL IVPUSH ONE (20:00)
[2017-03-20] MEDS: GABAPENTIN 400 MG CAPSULE (FP) PO SCH (21:09)
[2017-03-20] MEDS: CARVEDILOL 12.5 MG TABLET (FP) PO SCH (21:09)
[2017-03-20 22:45] LABS: URINE APPEARANCE CLEAR; URINE BILIRUBIN NEGATIVE (NEGATIVE); URINE BLOOD 1+ (NEGATIVE); URINE COLOR STRAW; URINE GLUCOSE (UA) NEGATIVE (NEGATIVE); URINE KETONE NEGATIVE (NEGATIVE); URINE NITRITE NEGATIVE (NEGATIVE); URINE PROTEIN NEGATIVE (NEGATIVE); URINE UROBILINOGEN NEGATIVE mg/dL (0.2-1.0)
[2017-03-21 00:58] LABS: MCH 29.7 pg (25.7-33.7); MCHC 32.9 g/dl (32.0-35.9); MEAN CELL VOLUME 90.3 fl (80-96); MEAN PLT VOLUME 8.8 fl (7.5-11.1); PLATELET COUNT 191 K/MM3 (134-434); RDW 22.4 % (11.9-15.9); WHITE BLOOD COUNT 5.3 K/mm3 (4.0-10.0)
[2017-03-21] MEDS: SUCRALFATE 1 GM/10 ML UNIT DOSE CUPS PO SCH ×4 (06:07→21:40)
[2017-03-21] MEDS: LEVOTHYROXINE NA 25 MCG TABLET (FP) PO SCH (06:07)
[2017-03-21 07:37] LABS: BASOPHIL 0.2 % (0-2.0); EOSINOPHIL 1.5 % (0-4.5); MCH 29.2 pg (25.7-33.7); MCHC 32.5 g/dl (32.0-35.9); MEAN CELL VOLUME 89.9 fl (80-96); MEAN PLT VOLUME 8.5 fl (7.5-11.1); NEUTROPHILS 70.4 % (42.8-82.8); PLATELET COUNT 197 K/MM3 (134-434); WHITE BLOOD COUNT 5.2 K/mm3 (4.0-10.0)
--- NOTE | 2017-03-21 07:53 | PN ---
Physical Exam: SUBJECTIVE: Patient seen and examined Patient is feeling better with no acute distress, no shortness of breath, no chest pain, no further GI bleed. OBJECTIVE: Vital Signs Temperature 98.0 F 03/21/17 06:00 Pulse Rate 69 03/21/17 06:00 Respiratory Rate 19 03/21/17 06:00 Blood Pressure 102/62 03/21/17 06:00 O2 Sat by Pulse Oximetry (%) 97 03/20/17 21:00 GENERAL: The patient is awake, alert, and fully oriented, in no acute distress. HEAD: Normal with no signs of trauma. EYES: PERRL, extraocular movements intact, sclera anicteric, conjunctiva clear. ENT: Ears normal, oropharynx clear without exudates, moist mucous membranes. On 3Liter NC NECK: Trachea midline, full range of motion, supple. LUNGS: Breath sounds equal, clear to auscultation bilaterally, no wheezes, no crackles, no accessory muscle use. HEART: Regular rate and rhythm, S1, S2 without murmur, No rub or gallop. ABDOMEN: Soft, nontender, nondistended, normoactive bowel sounds, no guarding, no rebound, no hepatosplenomegaly, no masses. EXTREMITIES: 2+ pulses, warm, well-perfused, no edema. NEUROLOGICAL: Cranial nerves II through XII grossly intact. Normal speech, gait is stable . PSYCH: Normal mood, normal affect. SKIN: Warm, dry, normal turgor, no rashes or lesions noted CBCD WBC 5.2 K/mm3 (4.0-10.0) 03/21/17 06:00 RBC 2.87 M/mm3 (4.00-5.60) L 03/21/17 06:00 Hgb 8.4 GM/dL (11.7-16.9) L 03/21/17 06:00 Hct 25.8 % (35.4-49) L 03/21/17 06:00 MCV 89.9 fl (80-96) 03/21/17 06:00 MCHC 32.5 g/dl (32.0-35.9) 03/21/17 06:00 RDW 22.0 % (11.9-15.9) H 03/21/17 06:00 Plt Count 197 K/MM3 (134-434) 03/21/17 06:00 MPV 8.5 fl (7.5-11.1) 03/21/17 06:00 CMP Sodium 141 mmol/L (136-145) 03/20/17 10:51 Potassium 3.7 mmol/L (3.5-5.1) 03/20/17 10:51 Chloride 102 mmol/L (98-107) 03/20/17 10:51 Carbon Dioxide 30 mmol/L (21-32) 03/20/17 10:51 Anion Gap 9 (8-16) 03/20/17 10:51 BUN 34 mg/dL (7-18) H 03/20/17 10:51 Creatinine 1.5 mg/dL (0.7-1.3) H D 03/20/17 10:51 Creat Clearance w eGFR 47.90 (>60) 03/20/17 10:51 Random Glucose 127 mg/dL (74-106) H 03/20/17 10:51 Calcium 8.0 mg/dL (8.5-10.1) L 03/20/17 10:51 Total Bilirubin 1.1 mg/dL (0.2-1.0) H D 03/20/17 10:51 AST 9 U/L (15-37) L D 03/20/17 10:51 ALT 14 U/L (12-78) D 03/20/17 10:51 Alkaline Phosphatase 82 U/L (45-117) 03/20/17 10:51 Total Protein 7.3 g/dl (6.4-8.2) 03/20/17 10:51 Albumin 3.6 g/dl (3.4-5.0) 03/20/17 10:51 CARDIAC ENZYMES Creatine Kinase 40 IU/L (39-308) 03/20/17 10:51 Troponin I < 0.02 ng/ml (0.00-0.05) 03/20/17 19:30 Laboratory Tests 03/20/17 03/20/17 03/20/17 10:51 10:51 19:30 BUN 34 H Creatinine 1.5 H D Troponin I < 0.02 < 0.02 B-Natriuretic Peptide 2010.07 H Current Medications Generic Name Dose Route Start Last Admin Trade Name Freq PRN Reason Stop Dose Admin Carvedilol 6.25 mg 03/20/17 22:00 03/20/17 21:09 Coreg - PO 6.25 mg BID JOSE Administration Furosemide 40 mg 03/21/17 10:00 Lasix - PO DAILY JOSE Gabapentin 400 mg 03/20/17 22:00 03/20/17 21:09 Neurontin - PO 400 mg BID JOSE Administration Levothyroxine Sodium 25 mcg 03/21/17 07:00 03/21/17 06:07 Synthroid - PO 25 mcg DAILY@0700 JOSE Administration Pantoprazole Sodium 40 mg 03/20/17 16:30 03/20/17 21:09 Protonix - PO 40 mg BID JOSE Administration Sucralfate 1 gm 03/20/17 16:30 03/21/17 06:07 Carafate Oral Suspension - PO 1 gm ACHS JOSE Administration Home Medications Medication Instructions Recorded Apixaban [Eliquis] 5 mg PO BID 07/26/15 Aspirin [ASA -] 81 mg PO DAILY 07/26/15 Sitagliptin Phos/Metformin HCl 1 tab PO BID 07/26/15 [Janumet 50-1,000 mg Tablet] Gabapentin [Neurontin -] 400 mg PO BID capsule 11/14/15 Levothyroxine [Synthroid -] 25 mcg PO DAILY@0700 tablet 11/14/15 Atorvastatin Ca [Lipitor] 20 mg PO DAILY 01/18/16 Clopidogrel Bisulfate [Plavix -] 75 mg PO DAILY 01/18/16 Glipizide [Glucotrol -] 5 mg PO BID 01/18/16 Losartan Potassium [Cozaar -] 50 mg PO DAILY 01/18/16 Spironolactone [Aldactone -] 25 mg PO DAILY 01/18/16 Furosemide [Lasix -] 40 mg PO DAILY #30 tablet 08/28/16 Carvedilol [Coreg -] 6.25 mg PO BID 03/20/17 A/P: 61 yo M with PMHx of CHF, COPD(home O2 dependent 3L), SHELD[place], CAD, HTN, HLD, DMII will be admitted to telemetry for acute on chronic CHF and symptomatic anemia with possible upper GI bleed. # Acute on chronic diastolic and systolic congestive heart failure; Echo pending , Cardiology consulted. Admit to telemetry, daily weights. strict I/O's # Symptomatic anemia: NPO for now, will hold AC for now. PPI 40 mg BID; Dr. Lozano GI consult for possible EGD; 2 units PRBC's ordered --> will give 40 mg IV lasix after transfusion # T2DM on [place] will hold for now, SS with coverage # HTN (hypertension) Carvedilol (Coreg -) 6.25 mg PO BID; Furosemide (Lasix -) 40 mg PO DAILY JOSE # Hyperlipidemia continue LIpitor # Hypothyroid continue Levothyroxine # S/P CABG (coronary artery bypass graft) on Aspirin , coreg continue # S/P implantation of automatic cardioverter/defibrillator (AICD), on Coreg continue # COPD (chronic obstructive pulmonary disease) on 3liter NC DVT Px: Eliquis is on hold due GI bleed Visit type - Emergency Visit Emergency Visit: Yes ED Registration Date: 03/20/17 Care time: The patient presented to the Emergency Department on the above date and was hospitalized for further evaluation of their emergent condition. - New Patient This patient is new to me today: No - Critical Care Critical Care patient: No
[2017-03-21 08:03] LABS: ALBUMIN 3.6 g/dl (3.4-5.0); ALK PHOS 85 U/L (45-117); ANION GAP 5 (8-16); BILIRUBIN,TOTAL 2.2 mg/dL (0.2-1.0); CALCIUM 7.9 mg/dL (8.5-10.1); CO2 32 mmol/L (21-32); CREATININE 1.2 mg/dL (0.7-1.3); GLUCOSE,RANDOM 120 mg/dL (74-106); MAGNESIUM 1.8 mg/dL (1.8-2.4); PHOSPHOROUS 2.4 mg/dL (2.5-4.9); SGOT/AST 10 U/L (15-37); SGPT/ALT 15 U/L (12-78); TOT PROT 7.4 g/dl (6.4-8.2)
[2017-03-21 08:06] LABS: INR 1.58 (0.82-1.09); PROTHROMBIN TIME (PATIENT) 17.9 SEC (9.98-11.88)
--- NOTE | 2017-03-21 08:11 | PN ---
Progress Note, Physician Chief Complaint: Coverage for [place] No complaints TELE: Paced - Current Medication List Current Medications: Active Medications Carvedilol (Coreg -) 6.25 mg PO BID PENDING SALE TO [facility] Last Admin: 03/20/17 21:09 Dose: 6.25 mg Furosemide (Lasix -) 40 mg PO DAILY [facility]END[facility] TO [facility] Gabapentin (Neurontin -) 400 mg PO BID [facility] Last Admin: 03/20/17 21:09 Dose: 400 mg Levothyroxine Sodium (Synthroid -) 25 mcg PO DAILY@0700 [facility] Last Admin: 03/21/17 06:07 Dose: 25 mcg Pantoprazole Sodium (Protonix -) 40 mg PO BID [facility] Last Admin: 03/20/17 21:09 Dose: 40 mg Sucralfate (Carafate Oral Suspension -) 1 gm PO ACHS [facility]END[facility] TO [facility] Last Admin: 03/21/17 06:07 Dose: 1 gm - Objective Vital Signs: Vital Signs Temperature 98.0 F 03/21/17 06:00 Pulse Rate 69 03/21/17 06:00 Respiratory Rate 19 03/21/17 06:00 Blood Pressure 102/62 03/21/17 06:00 O2 Sat by Pulse Oximetry (%) 97 03/20/17 21:00 Constitutional: Yes: No Distress Cardiovascular: Yes: Regular Rate and Rhythm Respiratory: Yes: CTA Bilaterally Gastrointestinal: Yes: Soft, Abdomen, Obese Edema: No Neurological: Yes: Alert, Oriented Labs: CBC, BMP 03/21/17 06:00 INR, PTT INR 1.58 (0.82-1.09) H D 03/21/17 06:00 Laboratory Tests 03/20/17 03/20/17 03/20/17 10:51 11:14 19:30 WBC Hgb Plt Count INR 2.34 H D Potassium Creatinine Troponin I < 0.02 < 0.02 03/21/17 03/21/17 03/21/17 06:00 06:00 06:00 WBC 5.2 Hgb 8.4 L Plt Count 197 INR 1.58 H D Potassium Pending Creatinine Pending Troponin I - ....Imaging EKG: Image Reviewed Assessment/Plan GI Bleed Chronic systolic CHF CABG 06/2014 at [facility] (4VD) ICD 2016 Diabetes Mellitus (DM) HTN hyperlipidemia obesity obstructive sleep apnea syndrome (OSAS) paroxysmal atrial fibrillation (PAF) Plan: -hold eliquis and ASA for now restart ac for CVA prevention as soon as OK by GI -Follow H/H, transfusional support -Continue telemetry -GI f/u Coverage for [place]
[2017-03-21] MEDS: GABAPENTIN 400 MG CAPSULE (FP) PO SCH ×2 (09:13→21:40)
[2017-03-21] MEDS: CARVEDILOL 12.5 MG TABLET (FP) PO SCH ×2 (09:14→21:40)
[2017-03-21] MEDS: PANTOPRAZOLE 40 MG TABLET (FP) PO SCH ×2 (09:14→21:40)
[2017-03-21] MEDS: FUROSEMIDE 40 MG TABLET (FP) PO SCH (09:14)
[2017-03-21 14:29] LABS: URINE LEUK ESTERASE Negative (NEGATIVE)
--- NOTE | 2017-03-21 14:59 | EKG ---
Test Reason : Blood Pressure : / mmHG Vent. Rate : 072 BPM Atrial Rate : 072 BPM P-R Int : 000 ms QRS Dur : 254 ms QT Int : 530 ms P-R-T Axes : 119 -75 096 degrees QTc Int : 580 ms Atrial-sensed ventricular-paced rhythm with prolonged AV conduction WITH VENTRICULAR PREMATURE BEATS. WHEN COMPARED WITH ECG OF 20-MAR-2017 10:26, VPBs ARE NOW PRESENT. Confirmed by SHEIKH JOANNA, DEVIKA ([id number]) on 03/21/2017 2:58:46 PM Referred By: Mansi SERNA Confirmed By:DEVIKA HODGES MD
--- NOTE | 2017-03-21 15:51 | EKG ---
Test Reason : Blood Pressure : / mmHG Vent. Rate : 070 BPM Atrial Rate : 072 BPM P-R Int : 000 ms QRS Dur : 234 ms QT Int : 518 ms P-R-T Axes : 000 -80 099 degrees QTc Int : 559 ms Ventricular-paced rhythm BASELINE ARTIFACT ABNORMAL ECG WHEN COMPARED WITH ECG OF 26-AUG-2016 10:17, ELECTRONIC VENTRICULAR PACEMAKER HAS REPLACED ATRIAL FIBRILLATION Confirmed by DEVIKA HODGES MD ([id number]) on 03/21/2017 3:51:21 PM Referred By: Confirmed By:DEVIKA HODGES MD
--- NOTE | 2017-03-21 16:46 | PN ---
GI Progress Note Subjective: GI NOte ( covering Dr Lozano) : Ankit denies chest pain or breathing difficulties. Dr Salazar's note is appreciated so will proceed with prep for EGD and colonoscopy on 03/[address] Lozano returns - Objective Vital Signs: Vital Signs Temperature 98.8 F 03/21/17 14:31 Pulse Rate 70 03/21/17 14:31 Respiratory Rate 20 03/21/17 14:31 Blood Pressure 105/69 03/21/17 14:31 O2 Sat by Pulse Oximetry (%) 96 03/21/17 08:00 Constitutional: No Distress Cardiovascular: Yes: Regular Rate and Rhythm Respiratory: Yes: CTA Bilaterally ...Auscultate: Yes: Normoactive Bowel Sounds ...Palpate: Yes: Soft, Other (nontender) Labs: CBC, BMP 03/21/17 06:00 03/21/17 06:00 INR, PTT INR 1.58 (0.82-1.09) H D 03/21/17 06:00 Assessment/Plan Will proceed with bowel prep for 03/23 EGD and colonoscopy
[2017-03-21 18:06] LABS: BASOPHIL 0.3 % (0-2.0); EOSINOPHIL 1.8 % (0-4.5); MCH 29.4 pg (25.7-33.7); MEAN PLT VOLUME 8.4 fl (7.5-11.1); NEUTROPHILS 67.5 % (42.8-82.8); PLATELET COUNT 207 K/MM3 (134-434); RDW 22.7 % (11.9-15.9); WHITE BLOOD COUNT 4.9 K/mm3 (4.0-10.0)
[2017-03-21 19:02] LABS: ANISOCYTOSIS 3+; HYPOCHROMIA 2+
[2017-03-21 19:03] LABS: MACROCYTOSIS 2+; MICROCYTOSIS 1+
[2017-03-22] MEDS: SUCRALFATE 1 GM/10 ML UNIT DOSE CUPS PO SCH ×4 (06:13→21:09)
[2017-03-22] MEDS: LEVOTHYROXINE NA 25 MCG TABLET (FP) PO SCH (06:13)
[2017-03-22 08:32] LABS: ALBUMIN 3.5 g/dl (3.4-5.0); ANION GAP 11 (8-16); BILIRUBIN,TOTAL 1.9 mg/dL (0.2-1.0); CALCIUM 8.5 mg/dL (8.5-10.1); CO2 30 mmol/L (21-32); GLUCOSE,RANDOM 100 mg/dL (74-106); SGOT/AST 11 U/L (15-37); SGPT/ALT 14 U/L (12-78); TOT PROT 7.1 g/dl (6.4-8.2)
[2017-03-22 08:33] LABS: ALK PHOS 85 U/L (45-117)
--- NOTE | 2017-03-22 09:11 | PN ---
Progress Note, Physician Chief Complaint: sitting comfortably, denies SOB or CP History of Present Illness: TELE: paced - Current Medication List Current Medications: Active Medications Carvedilol (Coreg -) 6.25 mg PO BID [facility] Last Admin: 03/21/17 21:40 Dose: 6.25 mg Furosemide (Lasix -) 40 mg PO DAILY [facility] Last Admin: 03/21/17 09:14 Dose: 40 mg Gabapentin (Neurontin -) 400 mg PO BID [facility] Last Admin: 03/21/17 21:40 Dose: 400 mg Levothyroxine Sodium (Synthroid -) 25 mcg PO DAILY@0700 [facility] Last Admin: 03/22/17 06:13 Dose: 25 mcg Pantoprazole Sodium (Protonix -) 40 mg PO BID [facility] Last Admin: 03/21/17 21:40 Dose: 40 mg Sucralfate (Carafate Oral Suspension -) 1 gm PO ACHS [facility] Last Admin: 03/22/17 06:13 Dose: 1 gm - Objective Vital Signs: Vital Signs Temperature 98.1 F 03/22/17 07:51 Pulse Rate 64 03/22/17 07:51 Respiratory Rate 20 03/22/17 07:51 Blood Pressure 106/64 03/22/17 07:51 O2 Sat by Pulse Oximetry (%) 96 03/21/17 20:58 Cardiovascular: Yes: Pulse Irregular Respiratory: Yes: CTA Bilaterally Gastrointestinal: Yes: Soft Edema: No Neurological: Yes: Alert Labs: CBC, BMP 03/22/17 06:15 INR, PTT INR 1.58 (0.82-1.09) H D 03/21/17 06:00 Laboratory Tests 03/21/17 03/22/17 03/22/17 06:00 06:15 06:15 WBC Pending Hgb Pending Plt Count Pending INR 1.58 H D Potassium 3.5 Creatinine 1.0 Assessment/Plan GI Bleed Chronic systolic CHF CABG 06/2014 at [facility] (4VD) ICD 2016 Diabetes Mellitus (DM) HTN hyperlipidemia obesity obstructive sleep apnea syndrome (OSAS) Paroxysmal atrial fibrillation (PAF) Plan: -hold eliquis and ASA for now restart, AC for CVA prevention as soon as OK by GI- when bleed source identified -Follow H/H, transfusional support -Continue telemetry -GI f/u -No contraindications for endoscopy Coverage for [place]
[2017-03-22] MEDS: FUROSEMIDE 40 MG TABLET (FP) PO SCH (09:42)
[2017-03-22] MEDS: PANTOPRAZOLE 40 MG TABLET (FP) PO SCH ×2 (09:42→21:09)
[2017-03-22] MEDS: CARVEDILOL 12.5 MG TABLET (FP) PO SCH ×2 (09:42→21:08)
[2017-03-22] MEDS: GABAPENTIN 400 MG CAPSULE (FP) PO SCH ×2 (09:42→21:09)
[2017-03-22 10:25] LABS: BASOPHIL 0.3 % (0-2.0); EOSINOPHIL 1.5 % (0-4.5); MCH 29.5 pg (25.7-33.7); MCHC 32.7 g/dl (32.0-35.9); MEAN PLT VOLUME 9.1 fl (7.5-11.1); NEUTROPHILS 68.7 % (42.8-82.8); PLATELET COUNT 191 K/MM3 (134-434); RDW 21.9 % (11.9-15.9); WHITE BLOOD COUNT 4.3 K/mm3 (4.0-10.0)
--- NOTE | 2017-03-22 12:25 | PN ---
GI Progress Note Subjective: GI NOte ( covering Dr Lozano) : No overt bleeding Hct stable. TB decreasing. Dr Salazar's cardiac clearance is appreciated. I answered Ankit's 's questions about the endoscopies - Objective Vital Signs: Vital Signs Temperature 98.1 F 03/22/17 07:51 Pulse Rate 64 03/22/17 07:51 Respiratory Rate 20 03/22/17 08:00 Blood Pressure 106/64 03/22/17 07:51 O2 Sat by Pulse Oximetry (%) 98 03/22/17 08:00 Laboratory Tests 03/20/17 03/21/17 03/21/17 10:51 06:00 17:15 Hgb 8.4 L Hct 25.4 L BUN Creatinine Total Bilirubin 1.1 H D 2.2 H D AST ALT Alkaline Phosphatase 03/22/17 03/22/17 06:15 06:15 Hgb 8.0 L Hct 24.5 L BUN 18 D Creatinine 1.0 Total Bilirubin 1.9 H AST 11 L ALT 14 Alkaline Phosphatase 85 Constitutional: Calm ...Auscultate: Yes: Normoactive Bowel Sounds ...Palpate: Yes: Soft, Other (nontender) Labs: CBC, BMP 03/22/17 06:15 03/22/17 06:15 INR, PTT INR 1.58 (0.82-1.09) H D 03/21/17 06:00 Assessment/Plan Will proceed with bowel prep for 03/23 EGD and colonoscopy for evaluate for source of anemia. Will start Golytely now.
--- NOTE | 2017-03-22 12:31 | PN ---
Teaching Attending Note Name of Resident: Hu Fuchs ATTENDING PHYSICIAN STATEMENT I saw and evaluated the patient. I reviewed the resident's note and discussed the case with the resident. I agree with the resident's findings and plan as documented. SUBJECTIVE: Patient is comfortable with no acute distress, No melena, or hematoemesis or hematochezia. OBJECTIVE: Vital Signs Temperature 98.1 F 03/22/17 07:51 Pulse Rate 64 03/22/17 07:51 Respiratory Rate 20 03/22/17 08:00 Blood Pressure 106/64 03/22/17 07:51 O2 Sat by Pulse Oximetry (%) 98 03/22/17 08:00 CBCD WBC 4.3 K/mm3 (4.0-10.0) 03/22/17 06:15 RBC 2.72 M/mm3 (4.00-5.60) L 03/22/17 06:15 Hgb 8.0 GM/dL (11.7-16.9) L 03/22/17 06:15 Hct 24.5 % (35.4-49) L 03/22/17 06:15 MCV 90.0 fl (80-96) 03/22/17 06:15 MCHC 32.7 g/dl (32.0-35.9) 03/22/17 06:15 RDW 21.9 % (11.9-15.9) H 03/22/17 06:15 Plt Count 191 K/MM3 (134-434) 03/22/17 06:15 MPV 9.1 fl (7.5-11.1) 03/22/17 06:15 CMP Sodium 138 mmol/L (136-145) 03/22/17 06:15 Potassium 3.5 mmol/L (3.5-5.1) 03/22/17 06:15 Chloride 97 mmol/L (98-107) L 03/22/17 06:15 Carbon Dioxide 30 mmol/L (21-32) 03/22/17 06:15 Anion Gap 11 (8-16) 03/22/17 06:15 BUN 18 mg/dL (7-18) D 03/22/17 06:15 Creatinine 1.0 mg/dL (0.7-1.3) 03/22/17 06:15 Creat Clearance w eGFR > 60 (>60) 03/22/17 06:15 Random Glucose 100 mg/dL (74-106) 03/22/17 06:15 Calcium 8.5 mg/dL (8.5-10.1) 03/22/17 06:15 Total Bilirubin 1.9 mg/dL (0.2-1.0) H 03/22/17 06:15 AST 11 U/L (15-37) L 03/22/17 06:15 ALT 14 U/L (12-78) 03/22/17 06:15 Alkaline Phosphatase 85 U/L (45-117) 03/22/17 06:15 Total Protein 7.1 g/dl (6.4-8.2) 03/22/17 06:15 Albumin 3.5 g/dl (3.4-5.0) 03/22/17 06:15 CARDIAC ENZYMES Creatine Kinase 40 IU/L (39-308) 03/20/17 10:51 Troponin I < 0.02 ng/ml (0.00-0.05) 03/20/17 19:30 Current Medications Generic Name Dose Route Start Last Admin Trade Name Luc PRN Reason Stop Dose Admin Carvedilol 6.25 mg 03/20/17 22:00 03/22/17 09:42 Coreg - PO 6.25 mg BID JOSE Administration Furosemide 40 mg 03/21/17 10:00 03/22/17 09:42 Lasix - PO 40 mg DAILY JOSE Administration Gabapentin 400 mg 03/20/17 22:00 03/22/17 09:42 Neurontin - PO 400 mg BID JOSE Administration Levothyroxine Sodium 25 mcg 03/21/17 07:00 03/22/17 06:13 Synthroid - PO 25 mcg DAILY@0700 JOSE Administration Pantoprazole Sodium 40 mg 03/20/17 16:30 03/22/17 09:42 Protonix - PO 40 mg BID JOSE Administration Sucralfate 1 gm 03/20/17 16:30 03/22/17 11:25 Carafate Oral Suspension - PO 1 gm ACHS JOSE Administration Home Medications Medication Instructions Recorded Apixaban [Eliquis] 5 mg PO BID 07/26/15 Aspirin [ASA -] 81 mg PO DAILY 07/26/15 Sitagliptin Phos/Metformin HCl 1 tab PO BID 07/26/15 [Janumet 50-1,000 mg Tablet] Gabapentin [Neurontin -] 400 mg PO BID capsule 11/14/15 Levothyroxine [Synthroid -] 25 mcg PO DAILY@0700 tablet 11/14/15 Atorvastatin Ca [Lipitor] 20 mg PO DAILY 01/18/16 Clopidogrel Bisulfate [Plavix -] 75 mg PO DAILY 01/18/16 Glipizide [Glucotrol -] 5 mg PO BID 01/18/16 Losartan Potassium [Cozaar -] 50 mg PO DAILY 01/18/16 Spironolactone [Aldactone -] 25 mg PO DAILY 01/18/16 Furosemide [Lasix -] 40 mg PO DAILY #30 tablet 08/28/16 Carvedilol [Coreg -] 6.25 mg PO BID 03/20/17 PE: per resident's note. ASSESSMENT AND PLAN: 61 yo M with PMHx of CHF, COPD(home O2 dependent 3L), SHELDON, CAD, HTN, HLD, DMII will be admitted to telemetry for acute on chronic CHF and symptomatic anemia with possible upper GI bleed. # Acute on chronic congestive heart failure; Echo result reviewed : RV systolic pressure 40-50, Mild , Mild CA, moderate TR, mild to moderate CA, severe global hypokinesis of LV. Cardiology consult appreciated. continue monitoring in telemetry, daily weights. strict I/O's # Symptomatic anemia: will hold AC for now. PPI 40 mg BID, Dr. Lozano GI consult for possible EGD; s/p one unit of PRBC transfusion. will continue to monitor # T2DM on Janumet will hold for now, with coverage # HTN (hypertension) Carvedilol (Coreg -) 6.25 mg PO BID; Furosemide (Lasix -) 40 mg PO DAILY continue # Hyperlipidemia continue # Hypothyroid continue Levothyroxine # S/P CABG (coronary artery bypass graft) # S/P implantation of automatic cardioverter/defibrillator (AICD) # COPD (chronic obstructive pulmonary disease) DVT Px: Eliquis is on hold due GI bleed
--- NOTE | 2017-03-22 12:32 | PN ---
Physical Exam: SUBJECTIVE: No acute events overnight. Hgb stable today, pt reports no BM with blood since admission. Pt to go for EGD/Colonoscopy Friday 03/23. Pt has no complaints currently and denies lightheadedness, SOB, and CP/discomfort. OBJECTIVE: Vital Signs Period Temp Pulse Resp BP Sys/Villalobos Pulse Ox Last 24 Hr 97.1 F-98.8 F 64-73 20-20 105-109/64-69 95-98 GENERAL: NAD, calm, sitting comfortably at bedside. HEENT: No JVD, EOMI, DELANEY, Sclera anicteric LUNGS: CTA bilaterally, no wheezes, rales or rhonchi. No accessory muscle use. HEART: RRR, S1, S2 without murmur ABDOMEN: Soft, nontender, nondistended, normoactive bowel sounds, no guarding, no rebound, no hepatosplenomegaly appreciated EXTREMITIES: 2+ pulses diffusely, no edema. NEUROLOGICAL: Alert and orientedx3 PSYCH: Normal mood, normal affect. SKIN: No rashes or lesions noted Laboratory Results - last 24 hr 03/20/17 03/21/17 03/21/17 22:39 17:10 17:15 WBC 4.9 RBC 2.85 L Hgb 8.4 L Hct 25.4 L MCV 89.0 MCH 29.4 MCHC 33.0 RDW 22.7 H Plt Count 207 MPV 8.4 Neutrophils % 67.5 Lymphocytes % 21.5 Monocytes % 8.9 Eosinophils % 1.8 Basophils % 0.3 Hypochromia 2+ Anisocytosis 3+ Microcytosis 1+ Macrocytosis 2+ Sodium Potassium Chloride Carbon Dioxide Anion Gap BUN Creatinine Creat Clearance w eGFR POC Glucometer 129 Random Glucose Calcium Total Bilirubin AST ALT Alkaline Phosphatase Total Protein Albumin Ur Leukocyte Esterase Negative 03/21/17 03/22/17 03/22/17 22:15 05:47 06:15 WBC 4.3 RBC 2.72 L Hgb 8.0 L Hct 24.5 L MCV 90.0 MCH 29.5 MCHC 32.7 RDW 21.9 H Plt Count 191 MPV 9.1 Neutrophils % 68.7 Lymphocytes % 22.7 Monocytes % 6.8 Eosinophils % 1.5 Basophils % 0.3 Hypochromia Anisocytosis Microcytosis Macrocytosis Sodium Potassium Chloride Carbon Dioxide Anion Gap BUN Creatinine Creat Clearance w eGFR POC Glucometer 112 120 Random Glucose Calcium Total Bilirubin AST ALT Alkaline Phosphatase Total Protein Albumin Ur Leukocyte Esterase 03/22/17 03/22/17 06:15 11:25 WBC RBC Hgb Hct MCV MCH MCHC RDW Plt Count MPV Neutrophils % Lymphocytes % Monocytes % Eosinophils % Basophils % Hypochromia Anisocytosis Microcytosis Macrocytosis Sodium 138 Potassium 3.5 Chloride 97 L Carbon Dioxide 30 Anion Gap 11 BUN 18 D Creatinine 1.0 Creat Clearance w eGFR > 60 POC Glucometer 128 Random Glucose 100 Calcium 8.5 Total Bilirubin 1.9 H AST 11 L ALT 14 Alkaline Phosphatase 85 Total Protein 7.1 Albumin 3.5 Ur Leukocyte Esterase Active Medications Generic Name Dose Route Start Last Admin Trade Name Freq PRN Reason Stop Dose Admin Carvedilol 6.25 mg 03/20/17 22:00 03/22/17 09:42 Coreg - PO 6.25 mg BID JOSE Administration Furosemide 40 mg 03/21/17 10:00 03/22/17 09:42 Lasix - PO 40 mg DAILY JOSE Administration Gabapentin 400 mg 03/20/17 22:00 03/22/17 09:42 Neurontin - PO 400 mg BID JOSE Administration Levothyroxine Sodium 25 mcg 03/21/17 07:00 03/22/17 06:13 Synthroid - PO 25 mcg DAILY@0700 JOSE Administration Pantoprazole Sodium 40 mg 03/20/17 16:30 03/22/17 09:42 Protonix - PO 40 mg BID JOSE Administration Sucralfate 1 gm 03/20/17 16:30 03/22/17 11:25 Carafate Oral Suspension - PO 1 gm ACHS JOSE Administration ASSESSMENT/PLAN: 1) Symptomatic Anemia --Most likely 2/2 upper GI bleed due to history of dark stools --Hgb stable at 8.0 today --Protonix 40mg PO BID --Pt to have EGD/Colonoscopy tomorrow via Dr. Lozano --NPO after midnight except meds --CBC, CMP, INR/PT for tomorrow --Pt to begin bowel prep today --S/P AICD placement; cardiology note reviewed --Intermediate risk pt for a low risk procedure 2) HTN --Coreg 6.25mg PO BID --Lasix 40mg PO qdaily 3) Hypothyroid, Chronic --Continue Synthroid 25mcg PO qDaily FEN: Fluids: None currently due to clear liquid diet Electrolyte abnormalities: None currently Nutrition: Clear liquids; NPO after midnight PPX: DVT - SCDs applied to both legs GI - Protonix 40mg PO BID Dispo: EGD/Colonoscopy tomorrow; continue m/s Case discussed with Dr. Margareth Fuchs, DO - Internal Medicine PGY-1 Visit type - Emergency Visit Emergency Visit: No - New Patient This patient is new to me today: No - Critical Care Critical Care patient: No
[2017-03-22] MEDS ORDERED: PEG3350/SOD SULF,BICARB,CL/KCL 4,000 ML SOLN.RECON PO ONE ×2 (13:00→18:00)
--- NOTE | 2017-03-22 15:19 | CON.PULM ---
Consult Consult Specialty:: PULMONARY Referred by:: Dr. Zluuaga Reason for Consultation:: SHELDON - History of Present Illness History of Present Illness: 61yo male with h/o HTN, DM, hyperlipidemia, COPD, chronic hypoxic respiratory failure on home O2, severe SHELDON, atrial fibrillation, LV systolic dysfunction who was admitted with worsening shortness of breath x 2 days. Noted to have black tarry stools and anemic to Hgb 7.1. Scheduled for colonoscopy tomorrow. Pt with severe SHELDON with AHI 96 on PSG 2015. Uses BiPAP nightly at home with . He was 260lbs at the time of that sleep study. Reports compliance with BiPAP nightly with improved symptoms. - History Source History Provided By: Patient, Medical Record Limitations to Obtaining History: No Limitations - Past Medical History Cardio/Vascular: Yes: AFIB, CAD, CHF, HTN, Hyperlipdemia Pulmonary: Yes: COPD, Sleep Apnea Renal/: Yes: Renal Inusuff (recent; ?prerenal azotemia) Endocrine: Yes: Diabetes Mellitus - Alcohol/Substance Use Hx Alcohol Use: No - Smoking History Smoking history: Former smoker Have you smoked in the past 12 months: No Aproximately how many cigarettes per day: 0 If you are a former smoker, when did you quit?: 2008 - Social History Usual Living Arrangement: With Spouse Home Medications - Allergies Allergies/Adverse Reactions: Allergies Allergy/AdvReac Type Severity Reaction Status Date / Time No Known Drug Allergies Allergy Verified 03/20/17 10:56 - Home Medications Home Medications: Ambulatory Orders Apixaban [Eliquis] 5 mg PO BID 07/26/15 Aspirin [ASA -] 81 mg PO DAILY 07/26/15 Sitagliptin Phos/Metformin HCl [Janumet 50-1,000 mg Tablet] 1 tab PO BID Gabapentin [Neurontin -] 400 mg PO BID capsule 11/14/15 Levothyroxine [Synthroid -] 25 mcg PO DAILY@0700 tablet 11/14/15 Atorvastatin Ca [Lipitor] 20 mg PO DAILY 01/18/16 Clopidogrel Bisulfate [Plavix -] 75 mg PO DAILY 01/18/16 Glipizide [Glucotrol -] 5 mg PO BID 01/18/16 Losartan Potassium [Cozaar -] 50 mg PO DAILY 01/18/16 Spironolactone [Aldactone -] 25 mg PO DAILY 01/18/16 Furosemide [Lasix -] 40 mg PO DAILY #30 tablet 08/28/16 Carvedilol [Coreg -] 6.25 mg PO BID 03/20/17 Review of Systems - Review of Systems Constitutional: reports: Weakness. denies: Chills, Fever Eyes: denies: Recent Change in Vision HENT: denies: Nasal Congestion, Throat Pain Neck: denies: Stiffness, Tenderness Cardiovascular: reports: Shortness of Breath. denies: Chest Pain, Edema, Palpitations Respiratory: reports: Exercise Intolerance, SOB on Exertion. denies: Cough, Hemoptysis, Wheezing Gastrointestinal: reports: Melena. denies: Abdominal Pain, Nausea, Vomiting Genitourinary: denies: Dysuria, Hematuria Neurological: denies: Dizziness, Headache Physical Exam Vital Sings: Vital Signs Temperature 98.3 F 03/22/17 14:36 Pulse Rate 72 03/22/17 14:36 Respiratory Rate 20 03/22/17 14:36 Blood Pressure 104/56 03/22/17 14:36 O2 Sat by Pulse Oximetry (%) 98 03/22/17 08:00 Constitutional: Yes: No Distress, Calm Eyes: Yes: Conjunctiva Clear, EOM Intact HENT: Yes: Atraumatic, Normocephalic Neck: Yes: Supple, Trachea Midline Cardiovascular: Yes: Regular Rate and Rhythm Respiratory: Yes: Regular, Diminished (decreased breath sounds at the bases) ...Clubbing: No Gastrointestinal: Yes: Normal Bowel Sounds, Soft, Abdomen, Obese. No: Tenderness Edema: No Neurological: Yes: Alert, Oriented Labs: CBC, BMP 03/22/17 06:15 03/22/17 06:15 Imaging - Results Chest X-ray: Report Reviewed, Image Reviewed (mild congestion) Problem List - Problems (1) Melena Code(s): K92.1 - MELENA (2) Anemia Code(s): D64.9 - ANEMIA, UNSPECIFIED (3) Congestive heart failure with left ventricular systolic dysfunction Code(s): I50.20 - UNSPECIFIED SYSTOLIC (CONGESTIVE) HEART FAILURE (4) COPD (chronic obstructive pulmonary disease) Code(s): J44.9 - CHRONIC OBSTRUCTIVE PULMONARY DISEASE, UNSPECIFIED Qualifiers: COPD type: chronic bronchitis Chronic bronchitis type: simple Qualified Code(s): J41.0 - Simple chronic bronchitis (5) Chronic respiratory failure with hypoxia Code(s): J96.11 - CHRONIC RESPIRATORY FAILURE WITH HYPOXIA (6) Morbid obesity Code(s): E66.01 - MORBID (SEVERE) OBESITY DUE TO EXCESS CALORIES (7) Pulmonary hypertension Code(s): I27.2 - OTHER SECONDARY PULMONARY HYPERTENSION * DO NOT USE * (8) Atrial fibrillation Code(s): I48.91 - UNSPECIFIED ATRIAL FIBRILLATION (9) Obstructive sleep apnea Code(s): G47.33 - OBSTRUCTIVE SLEEP APNEA (ADULT) (PEDIATRIC) Assessment/Plan GI Bleed Anemia CAD Atrial fibrillation LV Systolic Dysfunction Pulmonary HTN COPD Chronic Hypoxic Respiratory Failure Severe Obstructive Sleep Apnea - for colonoscopy tomorrow - instructed pt to bring in his personal CPAP - can proceed with colonoscopy from pulmonary standpoint but would have BiPAP on standby post-procedure with 25/21 settings as his AHI was 96 - if he loses another 30lbs, can consider another CPAP titration study as he has high pressures at this time - O2 to keep Spo2 >90% - monitor H/H - holding anticoagulation - DVT prophylaxis Thank you for this consult Mir Alvarado MD
[2017-03-22 17:37] LABS: BASOPHIL 0.4 % (0-2.0); EOSINOPHIL 1.9 % (0-4.5); MCH 29.8 pg (25.7-33.7); MCHC 33.5 g/dl (32.0-35.9); MEAN PLT VOLUME 8.8 fl (7.5-11.1); NEUTROPHILS 65.2 % (42.8-82.8); PLATELET COUNT 202 K/MM3 (134-434); RDW 22.6 % (11.9-15.9); WHITE BLOOD COUNT 4.1 K/mm3 (4.0-10.0)
[2017-03-22 18:49] LABS: ANISOCYTOSIS 3+; MACROCYTOSIS 1+; MICROCYTOSIS 1+; OVALOCYTE 1+; POIKILOCYTOSIS 1+; POLYCHROMASIA 1+
[2017-03-23] MEDS: SUCRALFATE 1 GM/10 ML UNIT DOSE CUPS PO SCH ×4 (06:39→21:36)
[2017-03-23] MEDS: LEVOTHYROXINE NA 25 MCG TABLET (FP) PO SCH (06:39)
[2017-03-23 07:38] LABS: MCH 29.2 pg (25.7-33.7); MCHC 32.6 g/dl (32.0-35.9); MEAN CELL VOLUME 89.5 fl (80-96); MEAN PLT VOLUME 8.7 fl (7.5-11.1); PLATELET COUNT 180 K/MM3 (134-434); RDW 21.7 % (11.9-15.9); WHITE BLOOD COUNT 4.1 K/mm3 (4.0-10.0)
[2017-03-23 07:57] LABS: INR 1.33 (0.82-1.09)
[2017-03-23 08:26] LABS: ALBUMIN 3.3 g/dl (3.4-5.0); ALK PHOS 86 U/L (45-117); ANION GAP 11 (8-16); BILIRUBIN,TOTAL 1.8 mg/dL (0.2-1.0); CALCIUM 8.1 mg/dL (8.5-10.1); CO2 32 mmol/L (21-32); GLUCOSE,RANDOM 104 mg/dL (74-106); MAGNESIUM 1.8 mg/dL (1.8-2.4); PHOSPHOROUS 2.5 mg/dL (2.5-4.9); SGOT/AST 12 U/L (15-37); SGPT/ALT 14 U/L (12-78); TOT PROT 6.9 g/dl (6.4-8.2)
--- NOTE | 2017-03-23 08:28 | PN ---
Physical Exam: SUBJECTIVE: No acute events overnight. Pt finished bowel prep at 11pm yesterday. Pt to go for EGD and colonoscopy today. No complaints overnight. No blood seen in stool when having BM due to prep. OBJECTIVE: Vital Signs Period Temp Pulse Resp BP Sys/Villalobos Pulse Ox Last 24 Hr 97.7 F-98.3 F 71-72 20-20 104-124/56-72 93 GENERAL: NAD, calm, sitting comfortably at bedside. HEENT: No JVD, EOMI, DELANEY, Sclera anicteric LUNGS: CTA bilaterally, no wheezes, rales or rhonchi. No accessory muscle use. HEART: RRR, S1, S2 without murmur ABDOMEN: Soft, nontender, nondistended, normoactive bowel sounds, no guarding, no rebound, no hepatosplenomegaly appreciated EXTREMITIES: 2+ pulses diffusely, no edema. NEUROLOGICAL: Alert and orientedx3 PSYCH: Normal mood, normal affect. SKIN: No rashes or lesions noted Laboratory Results - last 24 hr 03/22/17 03/22/17 03/22/17 06:15 06:15 11:25 WBC 4.3 RBC 2.72 L Hgb 8.0 L Hct 24.5 L MCV 90.0 MCH 29.5 MCHC 32.7 RDW 21.9 H Plt Count 191 MPV 9.1 Neutrophils % 68.7 Lymphocytes % 22.7 Monocytes % 6.8 Eosinophils % 1.5 Basophils % 0.3 Polychromasia Poikilocytosis Anisocytosis Microcytosis Macrocytosis Ovalocytes Morphology Comment PT with INR INR Sodium 138 Potassium 3.5 Chloride 97 L Carbon Dioxide 30 Anion Gap 11 BUN 18 D Creatinine 1.0 Creat Clearance w eGFR > 60 POC Glucometer 128 Random Glucose 100 Calcium 8.5 Total Bilirubin 1.9 H AST 11 L ALT 14 Alkaline Phosphatase 85 Total Protein 7.1 Albumin 3.5 03/22/17 03/22/17 03/22/17 16:52 17:00 21:00 WBC 4.1 RBC 2.70 L Hgb 8.1 L Hct 24.1 L MCV 89.0 MCH 29.8 MCHC 33.5 RDW 22.6 H Plt Count 202 MPV 8.8 Neutrophils % 65.2 Lymphocytes % 23.7 Monocytes % 8.8 Eosinophils % 1.9 Basophils % 0.4 Polychromasia 1+ Poikilocytosis 1+ Anisocytosis 3+ Microcytosis 1+ Macrocytosis 1+ Ovalocytes 1+ Morphology Comment PT with INR INR Sodium Potassium Chloride Carbon Dioxide Anion Gap BUN Creatinine Creat Clearance w eGFR POC Glucometer 113 112 Random Glucose Calcium Total Bilirubin AST ALT Alkaline Phosphatase Total Protein Albumin 03/23/17 03/23/17 03/23/17 05:27 05:27 06:13 WBC 4.1 RBC 2.61 L Hgb 7.6 L Hct 23.4 L MCV 89.5 MCH 29.2 MCHC 32.6 RDW 21.7 H Plt Count 180 MPV 8.7 Neutrophils % Lymphocytes % Monocytes % Eosinophils % Basophils % Polychromasia Poikilocytosis Anisocytosis Microcytosis Macrocytosis Ovalocytes Morphology Comment PT with INR 15.00 H INR 1.33 H Sodium Potassium Chloride Carbon Dioxide Anion Gap BUN Creatinine Creat Clearance w eGFR POC Glucometer 119 Random Glucose Calcium Total Bilirubin AST ALT Alkaline Phosphatase Total Protein Albumin Active Medications Generic Name Dose Route Start Last Admin Trade Name Freq PRN Reason Stop Dose Admin Carvedilol 6.25 mg 03/20/17 22:00 03/22/17 21:08 Coreg - PO 6.25 mg BID JOSE Administration Furosemide 40 mg 03/21/17 10:00 03/22/17 09:42 Lasix - PO 40 mg DAILY JOSE Administration Gabapentin 400 mg 03/20/17 22:00 03/22/17 21:09 Neurontin - PO 400 mg BID JOSE Administration Levothyroxine Sodium 25 mcg 03/21/17 07:00 03/23/17 06:39 Synthroid - PO 25 mcg DAILY@0700 JOSE Administration Pantoprazole Sodium 40 mg 03/20/17 16:30 03/22/17 21:09 Protonix - PO 40 mg BID JOSE Administration Sucralfate 1 gm 03/20/17 16:30 03/23/17 06:39 Carafate Oral Suspension - PO 1 gm ACHS JOSE Administration ASSESSMENT/PLAN: 1) Symptomatic Anemia --Most likely 2/2 upper GI bleed due to history of dark stools --Hgb stable at decreased to 7.6 today --Protonix 40mg PO BID --Pt to have EGD/Colonoscopy today via Dr. Lozano --NPO after midnight except meds --S/P AICD placement; cardiology note reviewed --Will discuss with Dr. Lozano about findings 2) HTN --Coreg 6.25mg PO BID --Lasix 40mg PO qdaily 3) Hypothyroid, Chronic --Continue Synthroid 25mcg PO qDaily FEN: Fluids: NPO for procedure; restart clears afterwards; not needed Electrolyte abnormalities: None currently Nutrition: NPO; clear liquids PPX: DVT - SCDs applied to both legs GI - Protonix 40mg PO BID Dispo: EGD/Colonoscopy today; continue m/s Case discussed with Dr. Margareth Fuchs, DO - Internal Medicine PGY-1 Visit type - Emergency Visit Emergency Visit: No - New Patient This patient is new to me today: No - Critical Care Critical Care patient: No
[2017-03-23] MEDS: CARVEDILOL 12.5 MG TABLET (FP) PO SCH ×2 (09:56→21:37)
[2017-03-23] MEDS ORDERED: MIDAZOLAM HCL 2 MG/2 ML SINGLE DOSE VIAL ONE (11:26)
[2017-03-23] MEDS ORDERED: LIDOCAINE HCL 4% PRESERVE-FREE 5 ML AMP ONE (11:29)
--- NOTE | 2017-03-23 11:30 | PN ---
Progress Note, Physician History of Present Illness: pulmonary alert,feeling better,less dyspneic,oob-chair - Current Medication List Current Medications: Active Medications Carvedilol (Coreg -) 6.25 mg PO BID [facility] Last Admin: 03/23/17 09:56 Dose: 6.25 mg Furosemide (Lasix -) 40 mg PO DAILY [facility] Last Admin: 03/22/17 09:42 Dose: 40 mg Gabapentin (Neurontin -) 400 mg PO BID [facility] Last Admin: 03/22/17 21:09 Dose: 400 mg Levothyroxine Sodium (Synthroid -) 25 mcg PO DAILY@0700 [facility] Last Admin: 03/23/17 06:39 Dose: 25 mcg Pantoprazole Sodium (Protonix -) 40 mg PO BID [facility] Last Admin: 03/22/17 21:09 Dose: 40 mg Sucralfate (Carafate Oral Suspension -) 1 gm PO ACHS [facility] Last Admin: 03/23/17 06:39 Dose: 1 gm - Objective Vital Signs: Vital Signs Temperature 97.6 F 03/23/17 09:00 Pulse Rate 70 03/23/17 09:00 Respiratory Rate 20 03/23/17 09:00 Blood Pressure 120/72 03/23/17 09:00 O2 Sat by Pulse Oximetry (%) 94 L 03/23/17 09:00 Constitutional: Yes: Well Nourished, Calm Eyes: Yes: WNL HENT: Yes: Nasal Congestion, Tonsillar Exudate Cardiovascular: Yes: Pulse Irregular, S1, S2 Respiratory: Yes: Rales (bibasilar crackles) Gastrointestinal: Yes: Normal Bowel Sounds, Soft Extremities: Yes: WNL Edema: No Labs: CBC, BMP 03/23/17 05:27 03/23/17 05:27 INR, PTT INR 1.33 (0.82-1.09) H 03/23/17 05:27 Assessment/Plan Problem List - Problems (1) Melena Code(s): K92.1 - MELENA (2) Anemia Code(s): D64.9 - ANEMIA, UNSPECIFIED (3) Congestive heart failure with left ventricular systolic dysfunction Code(s): I50.20 - UNSPECIFIED SYSTOLIC (CONGESTIVE) HEART FAILURE (4) COPD (chronic obstructive pulmonary disease) Code(s): J44.9 - CHRONIC OBSTRUCTIVE PULMONARY DISEASE, UNSPECIFIED Qualifiers: COPD type: chronic bronchitis Chronic bronchitis type: simple Qualified Code(s): J41.0 - Simple chronic bronchitis (5) Chronic respiratory failure with hypoxia Code(s): J96.11 - CHRONIC RESPIRATORY FAILURE WITH HYPOXIA (6) Morbid obesity Code(s): E66.01 - MORBID (SEVERE) OBESITY DUE TO EXCESS CALORIES (7) Pulmonary hypertension Code(s): I27.2 - OTHER SECONDARY PULMONARY HYPERTENSION * DO NOT USE * (8) Atrial fibrillation Code(s): I48.91 - UNSPECIFIED ATRIAL FIBRILLATION (9) Obstructive sleep apnea Code(s): G47.33 - OBSTRUCTIVE SLEEP APNEA (ADULT) (PEDIATRIC) Assessment/Plan GI Bleed Anemia CAD Atrial fibrillation LV Systolic Dysfunction Pulmonary HTN COPD Chronic Hypoxic Respiratory Failure Severe Obstructive Sleep Apnea - colonoscopy and egd today - personal CPAP - can proceed with colonoscopy from pulmonary standpoint but would have BiPAP on standby post-procedure with 25/21 settings as his AHI was 96 - O2 to keep Spo2 >90% - monitor H/H - holding anticoagulation - DVT prophylaxis DR ECHEVARRIA
[2017-03-23] MEDS ORDERED: LIDOCAINE VISCOUS 2% ORAL/TOP 100 ML BOTTLE MM ONE (11:58)
--- NOTE | 2017-03-23 12:46 | PN ---
Progress Note, Physician History of Present Illness: 61yo M hx HTN, HL, IDDM, COPD on 3L home O2, [place]LD[place], CABG s/p AICD, CHF p/w SOB for 5 days. SOB began when he walked his dog 5 days ago. He noticed reduced ET from 40 mins to 10 mins at his exercise class 4 days ago. Denies CP, F/C, N/V/D , urinary sxs. Reports dark stools without amna blood. Also notes decreased PO intake this week. Pt reports compliance with medications including diuretics. PMH Surgical History: CABG 06/2014 at [facility] (4VD) ICD 2016 Medical History: Diabetes Mellitus (DM) HTN hyperlipidemia obesity obstructive sleep apnea syndrome (OSAS) paroxysmal atrial fibrillation (PAF) s/p CABG 06/2014 (denies hx [place]), with moderately severe systolic LV dysfunction noted at [facility] on that admision-->ICD. - Current Medication List Current Medications: Active Medications Carvedilol (Coreg -) 6.25 mg PO BID [facility] Last Admin: 03/23/17 09:56 Dose: 6.25 mg Furosemide (Lasix -) 40 mg PO DAILY [facility] Last Admin: 03/22/17 09:42 Dose: 40 mg Gabapentin (Neurontin -) 400 mg PO BID [facility] Last Admin: 03/22/17 21:09 Dose: 400 mg Levothyroxine Sodium (Synthroid -) 25 mcg PO DAILY@0700 [facility] Last Admin: 03/23/17 06:39 Dose: 25 mcg Pantoprazole Sodium (Protonix -) 40 mg PO BID [facility] Last Admin: 03/22/17 21:09 Dose: 40 mg Sucralfate (Carafate Oral Suspension -) 1 gm PO ACHS [facility] Last Admin: 03/23/17 06:39 Dose: 1 gm - Objective Vital Signs: Vital Signs Temperature 97.7 F 03/23/17 12:24 Pulse Rate 65 03/23/17 12:40 Respiratory Rate 20 03/23/17 12:40 Blood Pressure 113/60 03/23/17 12:40 O2 Sat by Pulse Oximetry (%) 93 L 03/23/17 12:40 Eyes: Yes: WNL, Conjunctiva Clear, EOM Intact HENT: Yes: WNL, Atraumatic, Normocephalic Neck: Yes: WNL, Supple, Trachea Midline Cardiovascular: Yes: WNL, Regular Rate and Rhythm Respiratory: Yes: WNL, Regular, CTA Bilaterally Gastrointestinal: Yes: WNL, Normal Bowel Sounds Genitourinary: Yes: WNL Musculoskeletal: Yes: WNL Extremities: Yes: WNL Edema: No Integumentary: Yes: WNL Neurological: Yes: WNL, Alert, Oriented ...Motor Strength: WNL Psychiatric: Yes: WNL Labs: CBC, BMP 03/23/17 05:27 03/23/17 05:27 INR, PTT INR 1.33 (0.82-1.09) H 03/23/17 05:27 Problem List - Problems (1) Acute on chronic congestive heart failure Code(s): I50.9 - HEART FAILURE, UNSPECIFIED Qualifiers: Congestive heart failure type: combined Qualified Code(s): I50.43 - Acute on chronic combined systolic (congestive) and diastolic (congestive) heart failure (2) Symptomatic anemia Code(s): D64.9 - ANEMIA, UNSPECIFIED (3) CHF (congestive heart failure), NYHA class III Code(s): I50.9 - HEART FAILURE, UNSPECIFIED (4) Congestive heart failure Code(s): I50.9 - HEART FAILURE, UNSPECIFIED Qualifiers: Congestive heart failure type: unspecified congestive heart failure type Congestive heart failure chronicity: acute on chronic Qualified Code(s): I50.9 - Heart failure, unspecified (5) HTN (hypertension) Code(s): I10 - ESSENTIAL (PRIMARY) HYPERTENSION Qualifiers: Hypertension type: essential hypertension Qualified Code(s): I10 - Essential (primary) hypertension (6) Hyperlipidemia Code(s): E78.5 - HYPERLIPIDEMIA, UNSPECIFIED Qualifiers: Hyperlipidemia type: unspecified Qualified Code(s): E78.5 - Hyperlipidemia , unspecified (7) Hypothyroid Code(s): E03.9 - HYPOTHYROIDISM, UNSPECIFIED Qualifiers: Hypothyroidism type: acquired Qualified Code(s): E03.9 - Hypothyroidism, unspecified (8) Metabolic syndrome Code(s): E88.81 - METABOLIC SYNDROME (9) Morbid obesity Code(s): E66.01 - MORBID (SEVERE) OBESITY DUE TO EXCESS CALORIES (10) Pulmonary hypertension Code(s): I27.2 - OTHER SECONDARY PULMONARY HYPERTENSION * DO NOT USE * (11) Renal insufficiency Code(s): N28.9 - DISORDER OF KIDNEY AND URETER, UNSPECIFIED (12) S/P CABG (coronary artery bypass graft) Code(s): Z95.1 - PRESENCE OF AORTOCORONARY BYPASS GRAFT (13) S/P implantation of automatic cardioverter/defibrillator (AICD) Code(s): Z95.810 - PRESENCE OF AUTOMATIC (IMPLANTABLE) CARDIAC DEFIBRILLATOR (14) Sleep apnea Code(s): G47.30 - SLEEP APNEA, UNSPECIFIED Qualifiers: Sleep apnea type: unspecified type Qualified Code(s): G47.30 - Sleep apnea , unspecified (15) Systolic and diastolic CHF w/reduced LV function, NYHA class 4 Code(s): I50.40 - UNSP COMBINED SYSTOLIC AND DIASTOLIC (CONGESTIVE) HRT FAIL (16) Trifascicular bundle branch block Code(s): I45.3 - TRIFASCICULAR BLOCK (17) ASHD (arteriosclerotic heart disease) Code(s): I25.10 - ATHSCL HEART DISEASE OF [place] CORONARY ARTERY W/O ANG PCTRS (18) Atrial fib/flutter, transient Code(s): [id number] - (19) Atrial fibrillation Code(s): I48.91 - UNSPECIFIED ATRIAL FIBRILLATION (20) Bifascicular block Code(s): I45.2 - BIFASCICULAR BLOCK (21) COPD (chronic obstructive pulmonary disease) Code(s): J44.9 - CHRONIC OBSTRUCTIVE PULMONARY DISEASE, UNSPECIFIED Qualifiers: COPD type: chronic bronchitis Chronic bronchitis type: simple Qualified Code(s): J41.0 - Simple chronic bronchitis (22) Cellulitis and abscess of lower extremity Code(s): L02.419 - CUTANEOUS ABSCESS OF LIMB, UNSPECIFIED; L03.119 - CELLULITIS OF UNSPECIFIED PART OF LIMB (23) Diabetes Code(s): E11.9 - TYPE 2 DIABETES MELLITUS WITHOUT COMPLICATIONS (24) AICD discharge Code(s): Z45.02 - ENCNTR FOR ADJUST AND MGMT OF AUTOMATIC IMPLNTBL CARD DEFIB Assessment/Plan I Bleed Chronic systolic CHF CABG 06/2014 at [facility] (4VD) ICD 2016 Diabetes Mellitus (DM) HTN hyperlipidemia obesity obstructive sleep apnea syndrome (OSAS) Paroxysmal atrial fibrillation (PAF) Plan: -hold eliquis and ASA for now restart, AC for CVA prevention as soon as OK by GI- when bleed source identified -Follow H/H, transfusional support -Continue telemetry -GI f/u -No contraindications for endoscopy
--- NOTE | 2017-03-23 13:07 | PROC ---
Endoscopy Procedure Endoscopy procedure completed. Please see scanned procedure report.
[2017-03-23] MEDS: FUROSEMIDE 40 MG TABLET (FP) PO SCH (14:51)
[2017-03-23] MEDS: PANTOPRAZOLE 40 MG TABLET (FP) PO SCH ×2 (14:52→21:37)
[2017-03-23] MEDS: GABAPENTIN 400 MG CAPSULE (FP) PO SCH ×2 (14:52→21:37)
[2017-03-23] MEDS: APIXABAN 5 MG TABLET PO SCH ×2 (20:16→21:49)
--- NOTE | 2017-03-23 20:38 | PN ---
Teaching Attending Note Name of Resident: Hu Fuchs ATTENDING PHYSICIAN STATEMENT I saw and evaluated the patient. I reviewed the resident's note and discussed the case with the resident. I agree with the resident's findings and plan as documented. SUBJECTIVE: Patient is comfortable with no acute distress, s/p EGD and colonoscopy. OBJECTIVE: Vital Signs Temperature 98.5 F 03/23/17 18:00 Pulse Rate 70 03/23/17 18:00 Respiratory Rate 20 03/23/17 18:00 Blood Pressure 112/62 03/23/17 18:00 O2 Sat by Pulse Oximetry (%) 94 L 03/23/17 14:53 CBCD WBC 4.1 K/mm3 (4.0-10.0) 03/23/17 05:27 RBC 2.61 M/mm3 (4.00-5.60) L 03/23/17 05:27 Hgb 7.6 GM/dL (11.7-16.9) L 03/23/17 05:27 Hct 23.4 % (35.4-49) L 03/23/17 05:27 MCV 89.5 fl (80-96) 03/23/17 05:27 MCHC 32.6 g/dl (32.0-35.9) 03/23/17 05:27 RDW 21.7 % (11.9-15.9) H 03/23/17 05:27 Plt Count 180 K/MM3 (134-434) 03/23/17 05:27 MPV 8.7 fl (7.5-11.1) 03/23/17 05:27 CMP Sodium 138 mmol/L (136-145) 03/23/17 05:27 Potassium 3.4 mmol/L (3.5-5.1) L 03/23/17 05:27 Chloride 95 mmol/L (98-107) L 03/23/17 05:27 Carbon Dioxide 32 mmol/L (21-32) 03/23/17 05:27 Anion Gap 11 (8-16) 03/23/17 05:27 BUN 14 mg/dL (7-18) D 03/23/17 05:27 Creatinine 1.0 mg/dL (0.7-1.3) 03/23/17 05:27 Creat Clearance w eGFR > 60 (>60) 03/23/17 05:27 Random Glucose 104 mg/dL (74-106) 03/23/17 05:27 Calcium 8.1 mg/dL (8.5-10.1) L 03/23/17 05:27 Total Bilirubin 1.8 mg/dL (0.2-1.0) H 03/23/17 05:27 AST 12 U/L (15-37) L 03/23/17 05:27 ALT 14 U/L (12-78) 03/23/17 05:27 Alkaline Phosphatase 86 U/L (45-117) 03/23/17 05:27 Total Protein 6.9 g/dl (6.4-8.2) 03/23/17 05:27 Albumin 3.3 g/dl (3.4-5.0) L 03/23/17 05:27 CARDIAC ENZYMES Creatine Kinase 40 IU/L (39-308) 03/20/17 10:51 Troponin I < 0.02 ng/ml (0.00-0.05) 03/20/17 19:30 Current Medications Generic Name Dose Route Start Last Admin Trade Name Ranulfoq PRN Reason Stop Dose Admin Apixaban 5 mg 03/23/17 20:15 03/23/17 20:16 Eliquis - PO 5 mg BID JOSE Administration Carvedilol 6.25 mg 03/20/17 22:00 03/23/17 09:56 Coreg - PO 6.25 mg BID JOSE Administration Furosemide 40 mg 03/21/17 10:00 03/23/17 14:51 Lasix - PO 40 mg DAILY JOSE Administration Gabapentin 400 mg 03/20/17 22:00 03/23/17 14:52 Neurontin - PO 400 mg BID JOSE Administration Levothyroxine Sodium 25 mcg 03/21/17 07:00 03/23/17 06:39 Synthroid - PO 25 mcg DAILY@0700 JOSE Administration Pantoprazole Sodium 40 mg 03/20/17 16:30 03/23/17 14:52 Protonix - PO 40 mg BID JOSE Administration Sucralfate 1 gm 03/20/17 16:30 03/23/17 18:00 Carafate Oral Suspension - PO 1 gm ACHS JOSE Administration Home Medications Medication Instructions Recorded Apixaban [Eliquis] 5 mg PO BID 07/26/15 Aspirin [ASA -] 81 mg PO DAILY 07/26/15 Sitagliptin Phos/Metformin HCl 1 tab PO BID 07/26/15 [Janumet 50-1,000 mg Tablet] Gabapentin [Neurontin -] 400 mg PO BID capsule 11/14/15 Levothyroxine [Synthroid -] 25 mcg PO DAILY@0700 tablet 11/14/15 Atorvastatin Ca [Lipitor] 20 mg PO DAILY 01/18/16 Clopidogrel Bisulfate [Plavix -] 75 mg PO DAILY 01/18/16 Glipizide [Glucotrol -] 5 mg PO BID 01/18/16 Losartan Potassium [Cozaar -] 50 mg PO DAILY 01/18/16 Spironolactone [Aldactone -] 25 mg PO DAILY 01/18/16 Furosemide [Lasix -] 40 mg PO DAILY #30 tablet 08/28/16 Carvedilol [Coreg -] 6.25 mg PO BID 03/20/17 PE: per resident's note ASSESSMENT AND PLAN: 61 yo M with PMHx of CHF, COPD(home O2 dependent 3L), [place], CAD, HTN, HLD, DMII will be admitted to telemetry for acute on chronic CHF and symptomatic anemia with possible upper GI bleed. # S/P EGD and colonoscopy , no bleed is noted as per GI, as per 's report. erosive gastritis was noted, patient is placed on PPI and sucralfate. # Symptomatic anemia: AC is on hold as per GI suggestions , on PPI 40 mg BID, s /p one unit of PRBC transfusion. will continue to monitor # Acute on chronic congestive heart failure; Echo result reviewed : RV systolic pressure 40-50, Mild , Mild MA, moderate TR, mild to moderate MA, severe global hypokinesis of LV. Cardiology consult appreciated. continue monitoring in telemetry, daily weights. strict I/O's # T2DM on Janumet will hold for now, SS with coverage # HTN on Carvedilol 6.25 mg PO BID; and Furosemide 40 mg PO DAILY continue # Hyperlipidemia continue # Hypothyroid continue Levothyroxine # S/P CABG (coronary artery bypass graft) on Coreg continue # S/P implantation of automatic cardioverter/defibrillator (AICD) # Hx of COPD on 3 liter oxygen at home continue. DVT Px: Eliquis is on hold due GI bleed
[2017-03-24] MEDS: SUCRALFATE 1 GM/10 ML UNIT DOSE CUPS PO SCH ×4 (06:24→21:42)
[2017-03-24] MEDS: LEVOTHYROXINE NA 25 MCG TABLET (FP) PO SCH (06:25)
[2017-03-24 08:12] LABS: ALBUMIN 3.4 g/dl (3.4-5.0); ANION GAP 12 (8-16); CALCIUM 8.3 mg/dL (8.5-10.1); CO2 30 mmol/L (21-32); GLUCOSE,RANDOM 135 mg/dL (74-106)
[2017-03-24 08:15] LABS: ALK PHOS 94 U/L (45-117); BILIRUBIN,TOTAL 1.4 mg/dL (0.2-1.0); CREATININE 1.1 mg/dL (0.7-1.3); SGOT/AST 9 U/L (15-37); SGPT/ALT 15 U/L (12-78); TOT PROT 7.1 g/dl (6.4-8.2)
[2017-03-24 08:37] LABS: MCH 29.6 pg (25.7-33.7); MCHC 32.8 g/dl (32.0-35.9); MEAN CELL VOLUME 90.4 fl (80-96); MEAN PLT VOLUME 9.1 fl (7.5-11.1); PLATELET COUNT 175 K/MM3 (134-434); RDW 20.9 % (11.9-15.9); WHITE BLOOD COUNT 5.1 K/mm3 (4.0-10.0)
[2017-03-24] MEDS ORDERED: POTASSIUM CHLORIDE TABS 20 MEQ TABLET.ER (FP) PO ONE (08:42)
[2017-03-24] MEDS: CARVEDILOL 12.5 MG TABLET (FP) PO SCH ×2 (09:26→21:41)
[2017-03-24] MEDS: FUROSEMIDE 40 MG TABLET (FP) PO SCH (09:26)
[2017-03-24] MEDS: GABAPENTIN 400 MG CAPSULE (FP) PO SCH ×2 (09:26→21:41)
[2017-03-24] MEDS: PANTOPRAZOLE 40 MG TABLET (FP) PO SCH ×2 (09:29→21:41)
--- NOTE | 2017-03-24 10:20 | PN ---
Progress Note, Physician History of Present Illness: pulmonary alert,no distress,-cp,-sob. - Current Medication List Current Medications: Active Medications Carvedilol (Coreg -) 6.25 mg PO BID [facility] Last Admin: 03/24/17 09:26 Dose: 6.25 mg Furosemide (Lasix -) 40 mg PO DAILY [facility] Last Admin: 03/24/17 09:26 Dose: 40 mg Gabapentin (Neurontin -) 400 mg PO BID [facility] Last Admin: 03/24/17 09:26 Dose: 400 mg Levothyroxine Sodium (Synthroid -) 25 mcg PO DAILY@0700 [facility] Last Admin: 03/24/17 06:25 Dose: 25 mcg Pantoprazole Sodium (Protonix -) 40 mg PO BID [facility] Last Admin: 03/24/17 09:29 Dose: 40 mg Sucralfate (Carafate Oral Suspension -) 1 gm PO ACHS [facility] Last Admin: 03/24/17 06:24 Dose: 1 gm - Objective Vital Signs: Vital Signs Temperature 98.3 F 03/24/17 09:00 Pulse Rate 70 03/24/17 09:00 Respiratory Rate 20 03/24/17 09:00 Blood Pressure 110/65 03/24/17 09:00 O2 Sat by Pulse Oximetry (%) 95 03/24/17 09:00 Constitutional: Yes: Well Nourished, Calm Eyes: Yes: WNL HENT: Yes: WNL Neck: Yes: WNL Cardiovascular: Yes: Pulse Irregular, S1, S2 Respiratory: Yes: Diminished Gastrointestinal: Yes: Normal Bowel Sounds, Soft Extremities: Yes: WNL Edema: Yes Labs: CBC, BMP 03/24/17 06:30 03/24/17 05:10 INR, PTT INR 1.33 (0.82-1.09) H 03/23/17 05:27 Assessment/Plan Problem List - Problems (1) Melena Code(s): K92.1 - MELENA (2) Anemia Code(s): D64.9 - ANEMIA, UNSPECIFIED (3) Congestive heart failure with left ventricular systolic dysfunction Code(s): I50.20 - UNSPECIFIED SYSTOLIC (CONGESTIVE) HEART FAILURE (4) COPD (chronic obstructive pulmonary disease) Code(s): J44.9 - CHRONIC OBSTRUCTIVE PULMONARY DISEASE, UNSPECIFIED Qualifiers: COPD type: chronic bronchitis Chronic bronchitis type: simple Qualified Code(s): J41.0 - Simple chronic bronchitis (5) Chronic respiratory failure with hypoxia Code(s): J96.11 - CHRONIC RESPIRATORY FAILURE WITH HYPOXIA (6) Morbid obesity Code(s): E66.01 - MORBID (SEVERE) OBESITY DUE TO EXCESS CALORIES (7) Pulmonary hypertension Code(s): I27.2 - OTHER SECONDARY PULMONARY HYPERTENSION * DO NOT USE * (8) Atrial fibrillation Code(s): I48.91 - UNSPECIFIED ATRIAL FIBRILLATION (9) Obstructive sleep apnea Code(s): G47.33 - OBSTRUCTIVE SLEEP APNEA (ADULT) (PEDIATRIC) Assessment/Plan GI Bleed Anemia CAD Atrial fibrillation LV Systolic Dysfunction Pulmonary HTN COPD Chronic Hypoxic Respiratory Failure Severe Obstructive Sleep Apnea - personal CPAP - O2 to keep Spo2 >90% - monitor H/H - holding anticoagulation - DVT prophylaxis - capsule endoscopy outpatient DR ECHEVARRIA
--- NOTE | 2017-03-24 11:18 | PN ---
Progress Note, Physician History of Present Illness: No events overnight. COmfortable. No melena, hematochezia dyspepsia. - Current Medication List Current Medications: Active Medications Carvedilol (Coreg -) 6.25 mg PO BID [facility] Last Admin: 03/24/17 09:26 Dose: 6.25 mg Furosemide (Lasix -) 40 mg PO DAILY [facility] Last Admin: 03/24/17 09:26 Dose: 40 mg Gabapentin (Neurontin -) 400 mg PO BID [facility] Last Admin: 03/24/17 09:26 Dose: 400 mg Levothyroxine Sodium (Synthroid -) 25 mcg PO DAILY@0700 [facility] Last Admin: 03/24/17 06:25 Dose: 25 mcg Pantoprazole Sodium (Protonix -) 40 mg PO BID [facility] Last Admin: 03/24/17 09:29 Dose: 40 mg Sucralfate (Carafate Oral Suspension -) 1 gm PO ACHS [facility] Last Admin: 03/24/17 06:24 Dose: 1 gm - Objective Vital Signs: Vital Signs Temperature 98.3 F 03/24/17 09:00 Pulse Rate 70 03/24/17 09:00 Respiratory Rate 20 03/24/17 09:00 Blood Pressure 110/65 03/24/17 09:00 O2 Sat by Pulse Oximetry (%) 95 03/24/17 09:00 Constitutional: Yes: Well Nourished, No Distress, Calm Gastrointestinal: Yes: Normal Bowel Sounds, Soft. No: Melena, Rectal Bleeding, Tenderness, Vomiting Neurological: Yes: Alert, Oriented Labs: CBC, BMP 03/24/17 06:30 03/24/17 05:10 INR, PTT INR 1.33 (0.82-1.09) H 03/23/17 05:27 CBCD WBC 5.1 K/mm3 (4.0-10.0) 03/24/17 06:30 RBC 2.64 M/mm3 (4.00-5.60) L 03/24/17 06:30 Hgb 7.8 GM/dL (11.7-16.9) L 03/24/17 06:30 Hct 23.8 % (35.4-49) L 03/24/17 06:30 MCV 90.4 fl (80-96) 03/24/17 06:30 MCHC 32.8 g/dl (32.0-35.9) 03/24/17 06:30 RDW 20.9 % (11.9-15.9) H 03/24/17 06:30 Plt Count 175 K/MM3 (134-434) 03/24/17 06:30 MPV 9.1 fl (7.5-11.1) 03/24/17 06:30 CMP Sodium 138 mmol/L (136-145) 03/24/17 05:10 Potassium 3.3 mmol/L (3.5-5.1) L 03/24/17 05:10 Chloride 96 mmol/L (98-107) L 03/24/17 05:10 Carbon Dioxide 30 mmol/L (21-32) 03/24/17 05:10 Anion Gap 12 (8-16) 03/24/17 05:10 BUN 14 mg/dL (7-18) 03/24/17 05:10 Creatinine 1.1 mg/dL (0.7-1.3) 03/24/17 05:10 Creat Clearance w eGFR > 60 (>60) 03/24/17 05:10 Calcium 8.3 mg/dL (8.5-10.1) L 03/24/17 05:10 Total Bilirubin 1.4 mg/dL (0.2-1.0) H D 03/24/17 05:10 AST 9 U/L (15-37) L D 03/24/17 05:10 ALT 15 U/L (12-78) 03/24/17 05:10 Alkaline Phosphatase 94 U/L (45-117) 03/24/17 05:10 Total Protein 7.1 g/dl (6.4-8.2) 03/24/17 05:10 Albumin 3.4 g/dl (3.4-5.0) 03/24/17 05:10 Problem List - Problems (1) Anemia Code(s): D64.9 - ANEMIA, UNSPECIFIED (2) Gastrointestinal hemorrhage with melena Code(s): K92.1 - MELENA (3) Melena Code(s): K92.1 - MELENA (4) Acute on chronic congestive heart failure Code(s): I50.9 - HEART FAILURE, UNSPECIFIED Qualifiers: Congestive heart failure type: combined Qualified Code(s): I50.43 - Acute on chronic combined systolic (congestive) and diastolic (congestive) heart failure (5) Symptomatic anemia Code(s): D64.9 - ANEMIA, UNSPECIFIED (6) CHF (congestive heart failure), NYHA class III Code(s): I50.9 - HEART FAILURE, UNSPECIFIED (7) Congestive heart failure Code(s): I50.9 - HEART FAILURE, UNSPECIFIED Qualifiers: Congestive heart failure type: unspecified congestive heart failure type Congestive heart failure chronicity: acute on chronic Qualified Code(s): I50.9 - Heart failure, unspecified (8) S/P CABG (coronary artery bypass graft) Code(s): Z95.1 - PRESENCE OF AORTOCORONARY BYPASS GRAFT (9) Sleep apnea Code(s): G47.30 - SLEEP APNEA, UNSPECIFIED Qualifiers: Sleep apnea type: unspecified type Qualified Code(s): G47.30 - Sleep apnea , unspecified (10) Atrial fibrillation Code(s): I48.91 - UNSPECIFIED ATRIAL FIBRILLATION (11) COPD (chronic obstructive pulmonary disease) Code(s): J44.9 - CHRONIC OBSTRUCTIVE PULMONARY DISEASE, UNSPECIFIED Qualifiers: COPD type: chronic bronchitis Chronic bronchitis type: simple Qualified Code(s): J41.0 - Simple chronic bronchitis (12) Diabetes Code(s): E11.9 - TYPE 2 DIABETES MELLITUS WITHOUT COMPLICATIONS Assessment/Plan No significant findings on EGD and colonoscopy to explain severe anemia. Capsule endoscopy was discussed with the patient and he agrees. Schedule outpatient small bowel capsule endoscopy with Dr. Tavares Shafer
--- NOTE | 2017-03-24 11:23 | PN ---
Progress Note, Physician History of Present Illness: 61yo M hx HTN, HL, IDDM, COPD on 3L home O2, [place], CABG s/p AICD, CHF p/w SOB for 5 days. SOB began when he walked his dog 5 days ago. He noticed reduced ET from 40 mins to 10 mins at his exercise class 4 days ago. Denies CP, F/C, N/V/D , urinary sxs. Reports dark stools without amna blood. Also notes decreased PO intake this week. Pt reports compliance with medications including diuretics. PMH Surgical History: CABG 06/2014 at [facility] (4VD) ICD 2016 Medical History: Diabetes Mellitus (DM) HTN hyperlipidemia obesity obstructive sleep apnea syndrome (OSAS) paroxysmal atrial fibrillation (PAF) s/p CABG 06/2014 (denies hx [place]), with moderately severe systolic LV dysfunction noted at [facility] on that admision-->ICD. - Current Medication List Current Medications: Active Medications Carvedilol (Coreg -) 6.25 mg PO BID [facility] Last Admin: 03/24/17 09:26 Dose: 6.25 mg Furosemide (Lasix -) 40 mg PO DAILY [facility] Last Admin: 03/24/17 09:26 Dose: 40 mg Gabapentin (Neurontin -) 400 mg PO BID [facility] Last Admin: 03/24/17 09:26 Dose: 400 mg Levothyroxine Sodium (Synthroid -) 25 mcg PO DAILY@0700 [facility] Last Admin: 03/24/17 06:25 Dose: 25 mcg Pantoprazole Sodium (Protonix -) 40 mg PO BID [facility] Last Admin: 03/24/17 09:29 Dose: 40 mg Sucralfate (Carafate Oral Suspension -) 1 gm PO ACHS [facility] Last Admin: 03/24/17 06:24 Dose: 1 gm - Objective Vital Signs: Vital Signs Temperature 98.3 F 03/24/17 09:00 Pulse Rate 70 03/24/17 09:00 Respiratory Rate 20 03/24/17 09:00 Blood Pressure 110/65 03/24/17 09:00 O2 Sat by Pulse Oximetry (%) 95 03/24/17 09:00 Eyes: Yes: WNL, Conjunctiva Clear, EOM Intact HENT: Yes: WNL, Atraumatic, Normocephalic Neck: Yes: WNL, Supple, Trachea Midline Cardiovascular: Yes: WNL, Regular Rate and Rhythm Respiratory: Yes: WNL, Regular, CTA Bilaterally Gastrointestinal: Yes: WNL, Normal Bowel Sounds Genitourinary: Yes: WNL Musculoskeletal: Yes: WNL Extremities: Yes: WNL Edema: No Integumentary: Yes: WNL Neurological: Yes: WNL, Alert, Oriented ...Motor Strength: WNL Psychiatric: Yes: WNL Labs: CBC, BMP 03/24/17 06:30 03/24/17 05:10 INR, PTT INR 1.33 (0.82-1.09) H 03/23/17 05:27 Problem List - Problems (1) Acute on chronic congestive heart failure Code(s): I50.9 - HEART FAILURE, UNSPECIFIED Qualifiers: Qualified Code(s): I50.43 - Acute on chronic combined systolic (congestive) and diastolic (congestive) heart failure (2) Symptomatic anemia Code(s): D64.9 - ANEMIA, UNSPECIFIED (3) CHF (congestive heart failure), NYHA class III Code(s): I50.9 - HEART FAILURE, UNSPECIFIED (4) Congestive heart failure Code(s): I50.9 - HEART FAILURE, UNSPECIFIED Qualifiers: Qualified Code(s): I50.9 - Heart failure, unspecified (5) HTN (hypertension) Code(s): I10 - ESSENTIAL (PRIMARY) HYPERTENSION Qualifiers: Qualified Code(s): I10 - Essential (primary) hypertension (6) Hyperlipidemia Code(s): E78.5 - HYPERLIPIDEMIA, UNSPECIFIED Qualifiers: Qualified Code(s): E78.5 - Hyperlipidemia, unspecified (7) Hypothyroid Code(s): E03.9 - HYPOTHYROIDISM, UNSPECIFIED Qualifiers: Qualified Code(s): E03.9 - Hypothyroidism, unspecified (8) Metabolic syndrome Code(s): E88.81 - METABOLIC SYNDROME (9) Morbid obesity Code(s): E66.01 - MORBID (SEVERE) OBESITY DUE TO EXCESS CALORIES (10) Pulmonary hypertension Code(s): I27.2 - OTHER SECONDARY PULMONARY HYPERTENSION * DO NOT USE * (11) Renal insufficiency Code(s): N28.9 - DISORDER OF KIDNEY AND URETER, UNSPECIFIED (12) S/P CABG (coronary artery bypass graft) Code(s): Z95.1 - PRESENCE OF AORTOCORONARY BYPASS GRAFT (13) S/P implantation of automatic cardioverter/defibrillator (AICD) Code(s): Z95.810 - PRESENCE OF AUTOMATIC (IMPLANTABLE) CARDIAC DEFIBRILLATOR (14) Sleep apnea Code(s): G47.30 - SLEEP APNEA, UNSPECIFIED Qualifiers: Qualified Code(s): G47.30 - Sleep apnea, unspecified (15) Systolic and diastolic CHF w/reduced LV function, NYHA class 4 Code(s): I50.40 - UNSP COMBINED SYSTOLIC AND DIASTOLIC (CONGESTIVE) HRT FAIL (16) Trifascicular bundle branch block Code(s): I45.3 - TRIFASCICULAR BLOCK (17) ASHD (arteriosclerotic heart disease) Code(s): I25.10 - ATHSCL HEART DISEASE OF [place] CORONARY ARTERY W/O ANG PCTRS (18) Atrial fib/flutter, transient Code(s): QZG5128 - (19) Atrial fibrillation Code(s): I48.91 - UNSPECIFIED ATRIAL FIBRILLATION (20) Bifascicular block Code(s): I45.2 - BIFASCICULAR BLOCK (21) COPD (chronic obstructive pulmonary disease) Code(s): J44.9 - CHRONIC OBSTRUCTIVE PULMONARY DISEASE, UNSPECIFIED Qualifiers: Qualified Code(s): J41.0 - Simple chronic bronchitis (22) Cellulitis and abscess of lower extremity Code(s): L02.419 - CUTANEOUS ABSCESS OF LIMB, UNSPECIFIED; L03.119 - CELLULITIS OF UNSPECIFIED PART OF LIMB (23) Diabetes Code(s): E11.9 - TYPE 2 DIABETES MELLITUS WITHOUT COMPLICATIONS (24) AICD discharge Code(s): Z45.02 - ENCNTR FOR ADJUST AND MGMT OF AUTOMATIC IMPLNTBL CARD DEFIB Assessment/Plan I Bleed - negative colonoscopy/endoscopy Chronic systolic CHF CABG 06/2014 at [facility] (4VD) ICD 2016 Diabetes Mellitus (DM) HTN hyperlipidemia obesity obstructive sleep apnea syndrome (OSAS) Paroxysmal atrial fibrillation (PAF) Plan: capsule endoscopy pending -hold eliquis for now restart, AC for CVA prevention as soon as OK by GI- when bleed source identified -Follow H/H, transfusional support -Continue telemetry -GI f/u -
--- NOTE | 2017-03-24 14:51 | PATH ---
Surgical Pathology Report Patient Name: RUY MAURER [facility]. Rec. #: [id number] /Age/Gender: 1955 (Age: 61) / M Account: [id number] Location: 4 W TELEMETRY U Taken: 03/23/2017 Received: 03/23/2017 Reported: 03/24/2017 Physicians: Terrance Lozano M.D. Specimen(s) Received A: BX DUODENUM B: BX ANTRUM Clinical History Melena, GI bleed, anemia Gastritis, normal colon Final Diagnosis A. SECOND PORTION OF DUODENUM, BIOPSY: DUODENAL MUCOSA WITH NO SIGNIFICANT PATHOLOGIC FINDINGS. B. ANTRUM AND BODY, BIOPSY: SEVERE CHRONIC GASTRITIS. IMMUNOSTAIN IS NEGATIVE FOR H. PYLORI ORGANISMS. Electronically Signed Jessie Freedman M.D. Gross Description A. Received in formalin, labeled "biopsy second portion of duodenum" is a blair, irregular portion of soft tissue measuring 0.5 cm. in greatest dimension. The specimen is submitted in toto in one cassette. B. Received in formalin, labeled "biopsy antrum and body" are 3 blair, irregular portions of soft tissue ranging from 0.1-0.2 cm. in greatest dimension. The specimens are submitted in toto in one cassette. 03/23/201703/23/2017
--- NOTE | 2017-03-24 17:07 | PN ---
Teaching Attending Note Name of Resident: Hu Fuchs ATTENDING PHYSICIAN STATEMENT I saw and evaluated the patient. I reviewed the resident's note and discussed the case with the resident. I agree with the resident's findings and plan as documented. SUBJECTIVE: Patient is feeling better, with no acute distress. hemoglobin is stable. OBJECTIVE: Vital Signs Temperature 98.2 F 03/24/17 14:00 Pulse Rate 73 03/24/17 14:00 Respiratory Rate 20 03/24/17 09:00 Blood Pressure 111/71 03/24/17 14:00 O2 Sat by Pulse Oximetry (%) 95 03/24/17 09:00 CBCD WBC 5.1 K/mm3 (4.0-10.0) 03/24/17 06:30 RBC 2.64 M/mm3 (4.00-5.60) L 03/24/17 06:30 Hgb 7.8 GM/dL (11.7-16.9) L 03/24/17 06:30 Hct 23.8 % (35.4-49) L 03/24/17 06:30 MCV 90.4 fl (80-96) 03/24/17 06:30 MCHC 32.8 g/dl (32.0-35.9) 03/24/17 06:30 RDW 20.9 % (11.9-15.9) H 03/24/17 06:30 Plt Count 175 K/MM3 (134-434) 03/24/17 06:30 MPV 9.1 fl (7.5-11.1) 03/24/17 06:30 CMP Sodium 138 mmol/L (136-145) 03/24/17 05:10 Potassium 3.3 mmol/L (3.5-5.1) L 03/24/17 05:10 Chloride 96 mmol/L (98-107) L 03/24/17 05:10 Carbon Dioxide 30 mmol/L (21-32) 03/24/17 05:10 Anion Gap 12 (8-16) 03/24/17 05:10 BUN 14 mg/dL (7-18) 03/24/17 05:10 Creatinine 1.1 mg/dL (0.7-1.3) 03/24/17 05:10 Creat Clearance w eGFR > 60 (>60) 03/24/17 05:10 Random Glucose 135 mg/dL (74-106) H D 03/24/17 05:10 Calcium 8.3 mg/dL (8.5-10.1) L 03/24/17 05:10 Total Bilirubin 1.4 mg/dL (0.2-1.0) H D 03/24/17 05:10 AST 9 U/L (15-37) L D 03/24/17 05:10 ALT 15 U/L (12-78) 03/24/17 05:10 Alkaline Phosphatase 94 U/L (45-117) 03/24/17 05:10 Total Protein 7.1 g/dl (6.4-8.2) 03/24/17 05:10 Albumin 3.4 g/dl (3.4-5.0) 03/24/17 05:10 CARDIAC ENZYMES Creatine Kinase 40 IU/L (39-308) 03/20/17 10:51 Troponin I < 0.02 ng/ml (0.00-0.05) 03/20/17 19:30 Current Medications Generic Name Dose Route Start Last Admin Trade Name Luc PRN Reason Stop Dose Admin Carvedilol 6.25 mg 03/20/17 22:00 03/24/17 09:26 Coreg - PO 6.25 mg BID JOSE Administration Furosemide 40 mg 03/21/17 10:00 03/24/17 09:26 Lasix - PO 40 mg DAILY JOSE Administration Gabapentin 400 mg 03/20/17 22:00 03/24/17 09:26 Neurontin - PO 400 mg BID JOSE Administration Levothyroxine Sodium 25 mcg 03/21/17 07:00 03/24/17 06:25 Synthroid - PO 25 mcg DAILY@0700 JOSE Administration Pantoprazole Sodium 40 mg 03/20/17 16:30 03/24/17 09:29 Protonix - PO 40 mg BID JOSE Administration Sucralfate 1 gm 03/20/17 16:30 03/24/17 11:28 Carafate Oral Suspension - PO 1 gm ACHS JOSE Administration Home Medications Medication Instructions Recorded Apixaban [Eliquis] 5 mg PO BID 07/26/15 Aspirin [ASA -] 81 mg PO DAILY 07/26/15 Sitagliptin Phos/Metformin HCl 1 tab PO BID 07/26/15 [Janumet 50-1,000 mg Tablet] Gabapentin [Neurontin -] 400 mg PO BID capsule 11/14/15 Levothyroxine [Synthroid -] 25 mcg PO DAILY@0700 tablet 11/14/15 Atorvastatin Ca [Lipitor] 20 mg PO DAILY 01/18/16 Clopidogrel Bisulfate [Plavix -] 75 mg PO DAILY 01/18/16 Glipizide [Glucotrol -] 5 mg PO BID 01/18/16 Losartan Potassium [Cozaar -] 50 mg PO DAILY 01/18/16 Spironolactone [Aldactone -] 25 mg PO DAILY 01/18/16 Furosemide [Lasix -] 40 mg PO DAILY #30 tablet 08/28/16 Carvedilol [Coreg -] 6.25 mg PO BID 03/20/17 PE: per resident's note ASSESSMENT AND PLAN: 61 yo M with PMHx of CHF, COPD(home O2 dependent 3L), SHELDON, CAD, HTN, HLD, DMII will be admitted to telemetry for acute on chronic CHF and symptomatic anemia with possible upper GI bleed. # S/P EGD and colonoscopy , no bleed is noted as per GI, as per 's report. erosive gastritis was noted, patient is placed on PPI and sucralfate. hemoglobin stable at this time. will continue to monitor. As per GI: no significant findings on EGD and colonoscopy to explain severe anemia. Capsule endoscopy was discussed with the patient , will schedule as an outpatient ; small bowel capsule endoscopy with Dr. Tavares Shafer # Symptomatic anemia: s/p one unit of PRBC, AC is on hold as per GI suggestions , on PPI 40 mg BID, s/p one unit of PRBC transfusion. will continue to monitor # Acute on chronic congestive heart failure; Echo result reviewed : RV systolic pressure 40-50, Mild , Mild PA, moderate TR, mild to moderate PA, severe global hypokinesis of LV. Cardiology consult appreciated. continue monitoring in telemetry, daily weights. strict I/O's. # T2DM on Janumet will hold for now, SS with coverage # HTN on Carvedilol 6.25 mg PO BID; and Furosemide 40 mg PO DAILY continue # Hyperlipidemia continue # Hypothyroid continue Levothyroxine # S/P CABG (coronary artery bypass graft) on Coreg continue # S/P implantation of automatic cardioverter/defibrillator (AICD) # Hx of COPD on 3 liter oxygen at home continue. DVT Px: Eliquis is on hold due GI bleed Discharge in am if H/H stable, check with for discharge.
--- NOTE | 2017-03-24 17:17 | PN ---
Physical Exam: SUBJECTIVE: S/p EGD/colonoscopy today. Only finding was gastric erosions which was biopsied by Dr. Lozano. H/H stable today at 7.8. Pt reports not complaints today and wishes to go home. Denies, lightheadedness, dizziness, CP/discomfort, SOB, and decreased exercise tolerance. Denies any melena with BM today. OBJECTIVE: Vital Signs Period Temp Pulse Resp BP Sys/Villalobos Pulse Ox Last 24 Hr 97.4 F-98.5 F 64-73 20-20 104-116/53-71 95-95 GENERAL: NAD, calm, sitting comfortably in chair HEENT: No JVD, EOMI, DELANEY, Sclera anicteric LUNGS: CTA bilaterally, no wheezes, rales or rhonchi. On 4LNC due to long extension; normally on 3LNC at home HEART: RRR, S1, S2 without murmur ABDOMEN: Soft, nontender, nondistended, normoactive bowel sounds, no guarding, no rebound, no hepatosplenomegaly appreciated EXTREMITIES: 2+ pulses diffusely, no edema. NEUROLOGICAL: Alert and orientedx3 PSYCH: Normal mood, normal affect. SKIN: No rashes or lesions noted Laboratory Results - last 24 hr 03/20/17 03/23/17 03/23/17 11:14 17:56 21:33 WBC RBC Hgb Hct MCV MCH MCHC RDW Plt Count MPV Sodium Potassium Chloride Carbon Dioxide Anion Gap BUN Creatinine Creat Clearance w eGFR POC Glucometer 178 165 Random Glucose Calcium Total Bilirubin AST ALT Alkaline Phosphatase Total Protein Albumin Blood Type A NEGATIVE Antibody Screen Negative Crossmatch See Detail 03/24/17 03/24/17 03/24/17 05:10 05:55 06:30 WBC 5.1 RBC 2.64 L Hgb 7.8 L Hct 23.8 L MCV 90.4 MCH 29.6 MCHC 32.8 RDW 20.9 H Plt Count 175 MPV 9.1 Sodium 138 Potassium 3.3 L Chloride 96 L Carbon Dioxide 30 Anion Gap 12 BUN 14 Creatinine 1.1 Creat Clearance w eGFR > 60 POC Glucometer 138 Random Glucose 135 H D Calcium 8.3 L Total Bilirubin 1.4 H D AST 9 L D ALT 15 Alkaline Phosphatase 94 Total Protein 7.1 Albumin 3.4 Blood Type Antibody Screen Crossmatch Active Medications Generic Name Dose Route Start Last Admin Trade Name Freq PRN Reason Stop Dose Admin Carvedilol 6.25 mg 03/20/17 22:00 03/24/17 09:26 Coreg - PO 6.25 mg BID JOSE Administration Furosemide 40 mg 03/21/17 10:00 03/24/17 09:26 Lasix - PO 40 mg DAILY JOSE Administration Gabapentin 400 mg 03/20/17 22:00 03/24/17 09:26 Neurontin - PO 400 mg BID JOSE Administration Levothyroxine Sodium 25 mcg 03/21/17 07:00 03/24/17 06:25 Synthroid - PO 25 mcg DAILY@0700 JOSE Administration Pantoprazole Sodium 40 mg 03/20/17 16:30 03/24/17 09:29 Protonix - PO 40 mg BID JOSE Administration Sucralfate 1 gm 03/20/17 16:30 03/24/17 11:28 Carafate Oral Suspension - PO 1 gm ACHS JOSE Administration ASSESSMENT/PLAN: 1) Symptomatic Anemia --EGD/Colonoscopy unremarkable for bleeding etiology --Dr. Lozano following: --Pt will need capsule endoscopy on an outpatient --Protonix 40mg PO BID --Sucralfate 1gm PO ACHS --Holding Eliquis today --ASA continued --Cardiology on board and agrees with above plan 2) HTN --Coreg 6.25mg PO BID --Lasix 40mg PO qdaily 3) Hypothyroid, Chronic --Continue Synthroid 25mcg PO qDaily 4) Acute on chronic congestive heart failure --RESOLVED --Echo revealed: Mild , Mild VT, mod TR, mild-mod VT, severe global hypokinesis of LV. 5) Paroxysmal Atrial Fibrillation --Eliquis on hold due to above FEN: Fluids: None needed; on clears diet Electrolyte abnormalities: Hypokalemia at 3.3 today; repleted with 40mEq of KDur Nutrition: Clear liquids PPX: DVT - SCDs applied to both legs GI - Protonix 40mg PO BID Dispo: Pending d/c tomorrow AM as long as H/H stable Case discussed with Dr. Margareth Fuchs, DO - Internal Medicine PGY-1 Visit type - Emergency Visit Emergency Visit: No - New Patient This patient is new to me today: No - Critical Care Critical Care patient: No
[2017-03-24] MEDS ORDERED: PT OWN MED DRAWER 7, Y5N ONE (17:45)
[2017-03-25] MEDS: LEVOTHYROXINE NA 25 MCG TABLET (FP) PO SCH (06:20)
[2017-03-25] MEDS: SUCRALFATE 1 GM/10 ML UNIT DOSE CUPS PO SCH ×2 (06:20→11:51)
[2017-03-25 07:32] LABS: MCH 29.2 pg (25.7-33.7); MCHC 31.9 g/dl (32.0-35.9); MEAN CELL VOLUME 91.5 fl (80-96); MEAN PLT VOLUME 9.2 fl (7.5-11.1); PLATELET COUNT 183 K/MM3 (134-434); RDW 22.3 % (11.9-15.9); WHITE BLOOD COUNT 4.2 K/mm3 (4.0-10.0)
[2017-03-25 08:25] LABS: ANION GAP 7 (8-16); CALCIUM 8.4 mg/dL (8.5-10.1); CO2 35 mmol/L (21-32); GLUCOSE,RANDOM 122 mg/dL (74-106)
--- NOTE | 2017-03-25 09:29 | PN ---
Progress Note, Physician History of Present Illness: No events overnight. Comfortable. No melena, hematochezia dyspepsia. Path: chronic gastritis, negative for H. pylori. Normal duodenal mucosa - Current Medication List Current Medications: Active Medications Carvedilol (Coreg -) 6.25 mg PO BID [facility] Last Admin: 03/24/17 21:41 Dose: 6.25 mg Furosemide (Lasix -) 40 mg PO DAILY [facility] Last Admin: 03/24/17 09:26 Dose: 40 mg Gabapentin (Neurontin -) 400 mg PO BID [facility] Last Admin: 03/24/17 21:41 Dose: 400 mg Levothyroxine Sodium (Synthroid -) 25 mcg PO DAILY@0700 [facility] Last Admin: 03/25/17 06:20 Dose: 25 mcg Pantoprazole Sodium (Protonix -) 40 mg PO BID [facility] Last Admin: 03/24/17 21:41 Dose: 40 mg Sucralfate (Carafate Oral Suspension -) 1 gm PO ACHS [facility] Last Admin: 03/25/17 06:20 Dose: 1 gm - Objective Vital Signs: Vital Signs Temperature 98.2 F 03/25/17 05:00 Pulse Rate 70 03/25/17 05:00 Respiratory Rate 20 03/25/17 05:00 Blood Pressure 106/41 03/25/17 05:00 O2 Sat by Pulse Oximetry (%) 94 L 03/24/17 20:33 Constitutional: Yes: No Distress, Calm Eyes: Yes: Conjunctiva Clear Gastrointestinal: Yes: Soft. No: Melena, Rectal Bleeding, Tenderness, Vomiting Labs: CBC, BMP 03/25/17 05:20 03/25/17 05:20 INR, PTT INR 1.33 (0.82-1.09) H 03/23/17 05:27 Problem List - Problems (1) Anemia Code(s): D64.9 - ANEMIA, UNSPECIFIED (2) Gastrointestinal hemorrhage with melena Code(s): K92.1 - MELENA (3) Melena Code(s): K92.1 - MELENA (4) Acute on chronic congestive heart failure Code(s): I50.9 - HEART FAILURE, UNSPECIFIED Qualifiers: Congestive heart failure type: combined Qualified Code(s): I50.43 - Acute on chronic combined systolic (congestive) and diastolic (congestive) heart failure (5) Symptomatic anemia Code(s): D64.9 - ANEMIA, UNSPECIFIED (6) CHF (congestive heart failure), NYHA class III Code(s): I50.9 - HEART FAILURE, UNSPECIFIED (7) Congestive heart failure Code(s): I50.9 - HEART FAILURE, UNSPECIFIED Qualifiers: Congestive heart failure type: unspecified congestive heart failure type Congestive heart failure chronicity: acute on chronic Qualified Code(s): I50.9 - Heart failure, unspecified (8) S/P CABG (coronary artery bypass graft) Code(s): Z95.1 - PRESENCE OF AORTOCORONARY BYPASS GRAFT (9) Sleep apnea Code(s): G47.30 - SLEEP APNEA, UNSPECIFIED Qualifiers: Sleep apnea type: unspecified type Qualified Code(s): G47.30 - Sleep apnea , unspecified (10) Atrial fibrillation Code(s): I48.91 - UNSPECIFIED ATRIAL FIBRILLATION (11) COPD (chronic obstructive pulmonary disease) Code(s): J44.9 - CHRONIC OBSTRUCTIVE PULMONARY DISEASE, UNSPECIFIED Qualifiers: COPD type: chronic bronchitis Chronic bronchitis type: simple Qualified Code(s): J41.0 - Simple chronic bronchitis (12) Diabetes Code(s): E11.9 - TYPE 2 DIABETES MELLITUS WITHOUT COMPLICATIONS Assessment/Plan No significant findings on EGD and colonoscopy to explain severe anemia. Capsule endoscopy was discussed with the patient and he agrees. Please schedule outpatient consultation for small bowel capsule endoscopy with Dr. Tavares Shafer @ . H. pylori negative gastritis: Avoid NSAIDs if possible, OTC PPI for 2-4 weeks as demand therapy
[2017-03-25] MEDS: GABAPENTIN 400 MG CAPSULE (FP) PO SCH (09:35)
[2017-03-25] MEDS: PANTOPRAZOLE 40 MG TABLET (FP) PO SCH (09:35)
[2017-03-25] MEDS: CARVEDILOL 12.5 MG TABLET (FP) PO SCH (09:35)
[2017-03-25] MEDS: FUROSEMIDE 40 MG TABLET (FP) PO SCH (09:35)
--- NOTE | 2017-03-25 11:28 | PN ---
Progress Note, Physician History of Present Illness: PULMONARY ALERT,OOB-CHAIR,-SOB,-CP - Current Medication List Current Medications: Active Medications Carvedilol (Coreg -) 6.25 mg PO BID [facility] Last Admin: 03/25/17 09:35 Dose: 6.25 mg Furosemide (Lasix -) 40 mg PO DAILY [facility] Last Admin: 03/25/17 09:35 Dose: 40 mg Gabapentin (Neurontin -) 400 mg PO BID [facility] Last Admin: 03/25/17 09:35 Dose: 400 mg Levothyroxine Sodium (Synthroid -) 25 mcg PO DAILY@0700 [facility] Last Admin: 03/25/17 06:20 Dose: 25 mcg Pantoprazole Sodium (Protonix -) 40 mg PO BID [facility] Last Admin: 03/25/17 09:35 Dose: 40 mg Sucralfate (Carafate Oral Suspension -) 1 gm PO ACHS [facility] Last Admin: 03/25/17 06:20 Dose: 1 gm - Objective Vital Signs: Vital Signs Temperature 98.3 F 03/25/17 09:00 Pulse Rate 71 03/25/17 09:00 Respiratory Rate 20 03/25/17 09:00 Blood Pressure 108/58 03/25/17 09:00 O2 Sat by Pulse Oximetry (%) 95 03/25/17 09:00 Constitutional: Yes: Calm, Obese Eyes: Yes: WNL HENT: Yes: WNL Neck: Yes: WNL Cardiovascular: Yes: Pulse Irregular, S1, S2 Respiratory: Yes: Diminished Gastrointestinal: Yes: Normal Bowel Sounds, Soft Extremities: Yes: WNL Edema: Yes Labs: CBC, BMP 03/25/17 05:20 03/25/17 05:20 INR, PTT INR 1.33 (0.82-1.09) H 03/23/17 05:27 Assessment/Plan Problem List - Problems (1) Melena Code(s): K92.1 - MELENA (2) Anemia Code(s): D64.9 - ANEMIA, UNSPECIFIED (3) Congestive heart failure with left ventricular systolic dysfunction Code(s): I50.20 - UNSPECIFIED SYSTOLIC (CONGESTIVE) HEART FAILURE (4) COPD (chronic obstructive pulmonary disease) Code(s): J44.9 - CHRONIC OBSTRUCTIVE PULMONARY DISEASE, UNSPECIFIED Qualifiers: COPD type: chronic bronchitis Chronic bronchitis type: simple Qualified Code(s): J41.0 - Simple chronic bronchitis (5) Chronic respiratory failure with hypoxia Code(s): J96.11 - CHRONIC RESPIRATORY FAILURE WITH HYPOXIA (6) Morbid obesity Code(s): E66.01 - MORBID (SEVERE) OBESITY DUE TO EXCESS CALORIES (7) Pulmonary hypertension Code(s): I27.2 - OTHER SECONDARY PULMONARY HYPERTENSION * DO NOT USE * (8) Atrial fibrillation Code(s): I48.91 - UNSPECIFIED ATRIAL FIBRILLATION (9) Obstructive sleep apnea Code(s): G47.33 - OBSTRUCTIVE SLEEP APNEA (ADULT) (PEDIATRIC) Assessment/Plan GI Bleed Anemia CAD Atrial fibrillation LV Systolic Dysfunction Pulmonary HTN COPD Chronic Hypoxic Respiratory Failure Severe Obstructive Sleep Apnea - CPAP - O2 to keep Spo2 >90% - monitor H/H - DVT prophylaxis - capsule endoscopy outpatient DR ECHEVARRIA
--- NOTE | 2017-03-25 11:51 | PN ---
Progress Note, Physician History of Present Illness: 61yo M hx HTN, HL, IDDM, COPD on 3L home O2, SHELDON, CABG s/p AICD, CHF p/w SOB for 5 days. SOB began when he walked his dog 5 days ago. He noticed reduced ET from 40 mins to 10 mins at his exercise class 4 days ago. Denies CP, F/C, N/V/D , urinary sxs. Reports dark stools without amna blood. Also notes decreased PO intake this week. Pt reports compliance with medications including diuretics. PMH Surgical History: CABG 06/2014 at [facility] (4VD) ICD 2016 Medical History: Diabetes Mellitus (DM) HTN hyperlipidemia obesity obstructive sleep apnea syndrome (OSAS) paroxysmal atrial fibrillation (PAF) s/p CABG 06/2014 (denies hx MD), with moderately severe systolic LV dysfunction noted at [facility] on that admision-->ICD. - Current Medication List Current Medications: Active Medications Carvedilol (Coreg -) 6.25 mg PO BID [facility] Last Admin: 03/25/17 09:35 Dose: 6.25 mg Furosemide (Lasix -) 40 mg PO DAILY [facility] Last Admin: 03/25/17 09:35 Dose: 40 mg Gabapentin (Neurontin -) 400 mg PO BID [facility] Last Admin: 03/25/17 09:35 Dose: 400 mg Levothyroxine Sodium (Synthroid -) 25 mcg PO DAILY@0700 [facility] Last Admin: 03/25/17 06:20 Dose: 25 mcg Pantoprazole Sodium (Protonix -) 40 mg PO BID [facility] Last Admin: 03/25/17 09:35 Dose: 40 mg Sucralfate (Carafate Oral Suspension -) 1 gm PO ACHS [facility] Last Admin: 03/25/17 06:20 Dose: 1 gm - Objective Vital Signs: Vital Signs Temperature 98.3 F 03/25/17 09:00 Pulse Rate 71 03/25/17 09:00 Respiratory Rate 20 03/25/17 09:00 Blood Pressure 108/58 03/25/17 09:00 O2 Sat by Pulse Oximetry (%) 95 03/25/17 09:00 Eyes: Yes: WNL, Conjunctiva Clear, EOM Intact HENT: Yes: WNL, Atraumatic, Normocephalic Neck: Yes: WNL, Supple, Trachea Midline Cardiovascular: Yes: WNL, Regular Rate and Rhythm Respiratory: Yes: WNL, Regular, CTA Bilaterally Gastrointestinal: Yes: WNL, Normal Bowel Sounds Genitourinary: Yes: WNL Musculoskeletal: Yes: WNL Extremities: Yes: WNL Edema: No Integumentary: Yes: WNL Neurological: Yes: WNL, Alert, Oriented ...Motor Strength: WNL Psychiatric: Yes: WNL Labs: CBC, BMP 03/25/17 05:20 03/25/17 05:20 INR, PTT INR 1.33 (0.82-1.09) H 03/23/17 05:27 Problem List - Problems (1) Acute on chronic congestive heart failure Code(s): I50.9 - HEART FAILURE, UNSPECIFIED Qualifiers: Congestive heart failure type: combined Qualified Code(s): I50.43 - Acute on chronic combined systolic (congestive) and diastolic (congestive) heart failure (2) Symptomatic anemia Code(s): D64.9 - ANEMIA, UNSPECIFIED (3) CHF (congestive heart failure), NYHA class III Code(s): I50.9 - HEART FAILURE, UNSPECIFIED (4) Congestive heart failure Code(s): I50.9 - HEART FAILURE, UNSPECIFIED Qualifiers: Congestive heart failure type: unspecified congestive heart failure type Congestive heart failure chronicity: acute on chronic Qualified Code(s): I50.9 - Heart failure, unspecified (5) HTN (hypertension) Code(s): I10 - ESSENTIAL (PRIMARY) HYPERTENSION Qualifiers: Hypertension type: essential hypertension Qualified Code(s): I10 - Essential (primary) hypertension (6) Hyperlipidemia Code(s): E78.5 - HYPERLIPIDEMIA, UNSPECIFIED Qualifiers: Hyperlipidemia type: unspecified Qualified Code(s): E78.5 - Hyperlipidemia , unspecified (7) Hypothyroid Code(s): E03.9 - HYPOTHYROIDISM, UNSPECIFIED Qualifiers: Hypothyroidism type: acquired Qualified Code(s): E03.9 - Hypothyroidism, unspecified (8) Metabolic syndrome Code(s): E88.81 - METABOLIC SYNDROME (9) Morbid obesity Code(s): E66.01 - MORBID (SEVERE) OBESITY DUE TO EXCESS CALORIES (10) Pulmonary hypertension Code(s): I27.2 - OTHER SECONDARY PULMONARY HYPERTENSION * DO NOT USE * (11) Renal insufficiency Code(s): N28.9 - DISORDER OF KIDNEY AND URETER, UNSPECIFIED (12) S/P CABG (coronary artery bypass graft) Code(s): Z95.1 - PRESENCE OF AORTOCORONARY BYPASS GRAFT (13) S/P implantation of automatic cardioverter/defibrillator (AICD) Code(s): Z95.810 - PRESENCE OF AUTOMATIC (IMPLANTABLE) CARDIAC DEFIBRILLATOR (14) Sleep apnea Code(s): G47.30 - SLEEP APNEA, UNSPECIFIED Qualifiers: Sleep apnea type: unspecified type Qualified Code(s): G47.30 - Sleep apnea , unspecified (15) Systolic and diastolic CHF w/reduced LV function, NYHA class 4 Code(s): I50.40 - UNSP COMBINED SYSTOLIC AND DIASTOLIC (CONGESTIVE) HRT FAIL (16) Trifascicular bundle branch block Code(s): I45.3 - TRIFASCICULAR BLOCK (17) ASHD (arteriosclerotic heart disease) Code(s): I25.10 - ATHSCL HEART DISEASE OF [place] CORONARY ARTERY W/O ANG PCTRS (18) Atrial fib/flutter, transient Code(s): [id number] - (19) Atrial fibrillation Code(s): I48.91 - UNSPECIFIED ATRIAL FIBRILLATION (20) Bifascicular block Code(s): I45.2 - BIFASCICULAR BLOCK (21) COPD (chronic obstructive pulmonary disease) Code(s): J44.9 - CHRONIC OBSTRUCTIVE PULMONARY DISEASE, UNSPECIFIED Qualifiers: COPD type: chronic bronchitis Chronic bronchitis type: simple Qualified Code(s): J41.0 - Simple chronic bronchitis (22) Cellulitis and abscess of lower extremity Code(s): L02.419 - CUTANEOUS ABSCESS OF LIMB, UNSPECIFIED; L03.119 - CELLULITIS OF UNSPECIFIED PART OF LIMB (23) Diabetes Code(s): E11.9 - TYPE 2 DIABETES MELLITUS WITHOUT COMPLICATIONS (24) AICD discharge Code(s): Z45.02 - ENCNTR FOR ADJUST AND MGMT OF AUTOMATIC IMPLNTBL CARD DEFIB Assessment/Plan I Bleed - negative colonoscopy/endoscopy Chronic systolic CHF CABG 06/2014 at [facility] (4VD) ICD 2016 Diabetes Mellitus (DM) HTN hyperlipidemia obesity obstructive sleep apnea syndrome (OSAS) Paroxysmal atrial fibrillation (PAF) Plan: capsule endoscopy pending - eliquis held awaiting GI decision when to restart, risks of CVA explained to patient -Follow H/H, consider transfusion of PRBC up to hct 30% Continue telemetry -GI f/u -
[2017-03-25 15:39] VITALS: BP 115/67; PULSE 70; TEMP 98.4
--- NOTE | 2017-03-25 18:48 | DS ---
Physical Exam: SUBJECTIVE: No acute events overnight. Pt's H/H stable today with increase to 7.8 from 7.6 yesterday. Pt has no complaints today. Denies dizziness/ lightheadedness, CP/discomfort, N/V, and SOB. Pt is eager to go home. OBJECTIVE: Vital Signs Period Temp Pulse Resp BP Sys/Villalobos Pulse Ox Last 24 Hr 97.8 F-98.4 F 70-71 18-20 106-116/41-67 94-95 PHYSICAL EXAM GENERAL: NAD, calm, sitting comfortably in chair HEENT: No JVD, EOMI, DELANEY, Sclera anicteric LUNGS: CTA bilaterally, no wheezes, rales or rhonchi. On 4LNC due to long extension; normally on 3LNC at home HEART: RRR, S1, S2 without murmur ABDOMEN: Soft, nontender, nondistended, normoactive bowel sounds, no guarding, no rebound, no hepatosplenomegaly appreciated EXTREMITIES: 2+ pulses diffusely, trace edema to ankles noted. NEUROLOGICAL: Alert and orientedx3 PSYCH: Normal mood, normal affect. SKIN: No rashes or lesions noted LABS Laboratory Results - last 24 hr 03/24/17 03/24/17 03/25/17 21:45 23:18 05:20 WBC 4.2 RBC 2.59 L Hgb 7.6 L Hct 23.7 L MCV 91.5 MCH 29.2 MCHC 31.9 L RDW 22.3 H Plt Count 183 MPV 9.2 Sodium Potassium Chloride Carbon Dioxide Anion Gap BUN Creatinine POC Glucometer 300 156 Random Glucose Calcium 03/25/17 03/25/17 05:20 05:25 WBC RBC Hgb Hct MCV MCH MCHC RDW Plt Count MPV Sodium 140 Potassium 4.3 D Chloride 98 Carbon Dioxide 35 H Anion Gap 7 L BUN 15 Creatinine 1.0 POC Glucometer 141 Random Glucose 122 H Calcium 8.4 L HOSPITAL COURSE: Date of Admission:03/20/17 Date of Discharge: 03/25/17 Pt admitted on 03/20/17 due to 2 days of worsening SOB with minimal exertetion and a history of black tarry stools found to have acute blood loss anemia with suspected GI etiology. Pt was initially managed by having his home Eliquis held , started on protonix 40mg BID, and was given 2U PRBC with Lasix 40mg IVP given after the first unit of blood due to his CHF. Pt responded appropriately to his transfusions and had an echocardiogram ordered revealing: mild LV ventricle dilation with severe global hypokinesis of the LV, LA dilation, mod MR, and mod TR with increased RV systolic pressures (40-50). Pt was scheduled for EGD and colonoscopy which revealed: Mild gastritis in the gastric antrum which was biopsied multiple times and no other abnormalities and no abnormalities seen on colonoscopy. During pt's hospital course his H/H had been stable and the decision to discharge him on 03/25/17 was made. Pt had strict instructions to follow-up on an outpatient basis for capsule endoscopy and to have a CBC drawn 3 days later for follow-up on his Hgb. Pt also was told to stop his Eliquis and only resume his ASA due to his extensive cardiac history. Pt understands that if he experiences his same symptoms (SOB), neurological deficits including but not limited to weakness, loss of sensation, and facial droop that he should return to the nearest ED. CXR 03/20/17: Cardiomegaly with cephalization, slightly more prominent than previous exam suggestive of mild CHF w/ vascular congestion Minutes to complete discharge: 35 Discharge Summary Reason For Visit: CHF Condition: Stable - Instructions Diet, Activity, Other Instructions: You were hospitalized due to your blood count dropping and experiencing shortness of breath as a result Please follow up with your general medical doctor --If you do not have one please feel free to call [phone] and schedule an appoint under Dr. Naidu for Dr. Fuchs Please follow-up with with Dr. Shafer and Dr. Lozano's office at because it is important to receive your capsule endoscopy Please follow-up with your vessel engineer, if you do not have one Dr. Calabrese' s office information will be provided to you Medication Changes: Please STOP your Eliquis --If you restart this you will be at increased risk of bleeding and have the potential to have worsening symptoms Please continue Protonix 40mg by mouth TWICE per day You will be given a script to check your blood counts; please do so in 3 days after you are discharged. If you symptoms return please call your doctor or visit the nearest ER for further evaluation Referrals: Vishal Quintero MD [Primary Care Provider] - Terrance Lozano MD [Staff Physician] - Wilder Calabrese MD [Staff Physician] - Disposition: HOME - Home Medications Comprehensive Discharge Medication List: Ambulatory Orders Aspirin [ASA -] 81 mg PO DAILY 07/26/15 Sitagliptin Phos/Metformin HCl [Janumet 50-1,000 mg Tablet] 1 tab PO BID Gabapentin [Neurontin -] 400 mg PO BID capsule 11/14/15 Levothyroxine [Synthroid -] 25 mcg PO DAILY@0700 tablet 11/14/15 Atorvastatin Ca [Lipitor] 20 mg PO DAILY 01/18/16 Glipizide [Glucotrol -] 5 mg PO BID 01/18/16 Losartan Potassium [Cozaar -] 50 mg PO DAILY 01/18/16 Spironolactone [Aldactone -] 25 mg PO DAILY 01/18/16 Furosemide [Lasix -] 40 mg PO DAILY #30 tablet 08/28/16 Carvedilol [Coreg -] 6.25 mg PO BID 03/20/17 Miscellaneous Drug Not In Syst [Outpatient Lab Test] 1 each ASDIR #1 misc Pantoprazole Sodium [Protonix -] 40 mg PO BID #30 tablet.ec 03/25/17 This patient is new to me today: No Emergency Visit: No Critical Care patient: No - Discharge Referral Referred to [facility] No
--- NOTE | 2017-03-25 20:37 | PN ---
Teaching Attending Note Name of Resident: Hu Fuchs ATTENDING PHYSICIAN STATEMENT I saw and evaluated the patient. I reviewed the resident's note and discussed the case with the resident. I agree with the resident's findings and plan as documented. SUBJECTIVE: no pain , no fever or chills. OBJECTIVE: NA D CV : irreg irreg Lungs CTAB abd: soft, NT, ND , NL BS Ext : no edema ASSESSMENT AND PLAN: 61 y/o man with h/o HTN, CAD, s/p CABG, HLP , HTN, A fib and other medical problems who presented with melena 1- GI bleed /Melena: EGD and colonoscopy with no source identified cont to hold eliquis and plavix ( D/w Card ) pending capsule endoscopy d/w GI , OK to resume ASA PPI as out pt follow up 2- A fib: hold eliquis. risk of stroke explained to pt and he accepted. risk of bleed is high . 3- h/o CAD : d/w Card . Ok to hold plavix 4- HTN dispo : dc home with blood work prescription . f/u with GI and Card .
== END 2017-03-25 15:40 | disposition home or self-care (01) | DRG 811 ==
LOC: JER 10:01 → JERBED 13:14 → J4W 15:54
PROVIDERS: ADMIT Internal Medicine; ATTEND Internal Medicine
PROC: 30233H1 Transfusion of Nonautologous Whole Blood into Peripheral Vein, Percutaneous Approach (ICD-10-PCS; 2017-03-20)
PROC: 0DJD8ZZ Inspection of Lower Intestinal Tract, Via Natural or Artificial Opening Endoscopic (ICD-10-PCS; 2017-03-23)
PROC: 0DD68ZX Extraction of Stomach, Via Natural or Artificial Opening Endoscopic, Diagnostic (ICD-10-PCS; principal; 2017-03-23 10:30)
DX: D62 Acute posthemorrhagic anemia (principal); I50.43 Acute on chronic combined systolic (congestive) and diastolic (congestive) heart failure; I42.9 Cardiomyopathy, unspecified; I45.3 Trifascicular block; J96.11 Chronic respiratory failure with hypoxia; K92.1 Melena; I11.0 Hypertensive heart disease with heart failure; J44.9 Chronic obstructive pulmonary disease, unspecified; G47.33 Obstructive sleep apnea (adult) (pediatric); Z99.81 Dependence on supplemental oxygen; Z95.5 Presence of coronary angioplasty implant and graft; Z95.810 Presence of automatic (implantable) cardiac defibrillator; K29.00 Acute gastritis without bleeding; Z95.1 Presence of aortocoronary bypass graft; E11.9 Type 2 diabetes mellitus without complications; E78.5 Hyperlipidemia, unspecified; Z87.891 Personal history of nicotine dependence; Z79.4 Long term (current) use of insulin; Z79.01 Long term (current) use of anticoagulants; E03.9 Hypothyroidism, unspecified; E66.9 Obesity, unspecified; Z68.39 Body mass index [BMI] 39.0-39.9, adult; I48.0 Paroxysmal atrial fibrillation
CPT/HCPCS: 36415; 36430; 71020-TC; 80048; 80053; 81003; 82550; 83735; 83880; 84100; 84484; 85025; 85027; 85610; 85730; 86850; 86900; 86901; 86922; 88305-TC; 93005; 93010; 93306-TC; 99285-25; P9038; P9058

== ENCOUNTER 2017-04-13 06:41 | Inpatient (IN) | payer OTHER ==
--- NOTE | 2017-04-13 07:14 | PDOC ---
History of Present Illness - General Chief Complaint: Congestive Heart Failure Stated Complaint: COUGH Time Seen by Provider: 04/13/17 07:02 - History of Present Illness Initial Comments: 04/13/17 07:06 61 yo M with h/o HTN, HLD, NIDDM, COPD, CHF, A-fib s/p cardioverter/ defibrillator, CAD s/p stent placement x 3, CABG x 1 who presents with cough. Patient reports productive cough of 1 week yellow sputum. Endorses fatigue and pleuritic chest pain with cough and deep inhalation. Increased Cota. Denies swelling of ext. Denies N/V, fevers/chills, lightheadedness, weakness, urinary complaints, or GI/abdominal complaints. Increased O2 from 3 to 3.5 this past week. Furesomide 40 mg BID. No home duonebs. Not anticoagulated d/t recent anemia / suspected GI bleed on previous admission ( 03/20-03/25) with negative colonoscopy/endoscopy. Scheduled to have capsule endoscopy done today 0830. PCP. Dr. Fuchs, and communications technician dr. Lind. Tobacco cessation in 2008 2 1/2 ppd for 40 years. Past History - Past Medical History Allergies/Adverse Reactions: Allergies Allergy/AdvReac Type Severity Reaction Status Date / Time No Known Drug Allergies Allergy Verified 04/13/17 06:52 Home Medications: Ambulatory Orders Aspirin [ASA -] 81 mg PO DAILY 07/26/15 Sitagliptin Phos/Metformin HCl [Janumet 50-1,000 mg Tablet] 1 tab PO BID Gabapentin [Neurontin -] 400 mg PO BID capsule 11/14/15 Levothyroxine [Synthroid -] 25 mcg PO DAILY@0700 tablet 11/14/15 Atorvastatin Ca [Lipitor] 20 mg PO DAILY 01/18/16 Glipizide [Glucotrol -] 5 mg PO BID 01/18/16 Losartan Potassium [Cozaar -] 50 mg PO DAILY 01/18/16 Spironolactone [Aldactone -] 25 mg PO DAILY 01/18/16 Furosemide [Lasix -] 40 mg PO DAILY #30 tablet 08/28/16 Carvedilol [Coreg -] 6.25 mg PO BID 03/20/17 Miscellaneous Drug Not In Syst [Outpatient Lab Test] 1 each ASDIR #1 misc Pantoprazole Sodium [Protonix -] 40 mg PO BID #30 tablet.ec 03/25/17 Cardiac Disorders: Yes (cardiac stent, defib, cardiomyopathy, CABG 4) COPD: Yes (3 L o2) CHF: Yes Diabetes: Yes HTN: Yes Hypercholesterolemia: Yes - Surgical History Cardiac Surgery: Yes (cardiac stent x1, CAGB 4, PACEMAKER/DEFIB) Orthopedic Surgery: No - Immunization History Immunization Up to Date: Yes - Suicide/Smoking/Psychosocial Hx Smoking Status: No Smoking History: Former smoker Years of Tobacco Use: 20 Have you smoked in the past 12 months: No Number of Cigarettes Smoked Daily: 0 If you are a former smoker, when did you quit?: 2008 Information on smoking cessation initiated: No 'Breaking Loose' booklet given: 05/30/12 Hx Alcohol Use: No Drug/Substance Use Hx: No Substance Use Type: None Hx Substance Use Treatment: No Review of Systems - Review of Systems Comments:: 04/13/17 07:05 GENERAL/CONSTITUTIONAL:+ Fatigue No fever or chills. No weakness. HEAD, EYES, EARS, NOSE AND THROAT: No change in vision. No ear pain or discharge. No sore throat.- CARDIOVASCULAR:+ chest pain and shortness of breath RESPIRATORY: No cough, wheezing, or hemoptysis. GASTROINTESTINAL: No nausea, vomiting, diarrhea or constipation. GENITOURINARY: No dysuria, frequency, or change in urination. MUSCULOSKELETAL: No joint or muscle swelling or pain. No neck or back pain. SKIN: No rash NEUROLOGIC: No headache, vertigo, loss of consciousness, or change in strength/ sensation. ENDOCRINE: No increased thirst. No abnormal weight change HEMATOLOGIC/LYMPHATIC: No anemia, easy bleeding, or history of blood clots. ALLERGIC/IMMUNOLOGIC: No hives or skin allergy. *Physical Exam - Vital Signs Last Vital Signs Temp Pulse Resp BP Pulse Ox 97.5 F L 70 18 110/58 95 04/13/17 06:52 04/13/17 06:52 04/13/17 06:52 04/13/17 06:52 04/13/17 06:52 - Physical Exam Comments: 04/13/17 07:05 GENERAL: Awake, alert, and fully oriented, in no acute distress HEAD: No signs of trauma, normocephalic, atraumatic EYES: PERRLA, EOMI, sclera anicteric, conjunctiva clear ENT: Hearing grossly normal, nares patent, oropharynx clear without exudates. Moist mucosa NECK: Normal ROM, supple, no lymphadenopathy, JVD, or masses LUNGS: + Diffuse expiratory wheezing BL. No distress, speaks full sentences, clear to auscultation bilaterally HEART: Regular rate and rhythm, normal S1 and S2, no murmurs, rubs or gallops, peripheral pulses normal and equal bilaterally. EXTREMITIES : Normal inspection, Normal range of motion, no edema. No clubbing or cyanosis. SKIN: Warm, Dry, normal turgor, no rashes or lesions noted. Heart Score/ECG Review - History History: Slightly suspicious - Electrocardiogram EKG: Non specific repolarization disturbance - Age Age: 45-65 - Risk Factors Risk Factors Heart Score: Yes Hx Hypercholesterolemia, Yes Hx Hypertension, Yes Hx Diabetes Based on the list above the patient has:: >/=3 risk factors or Hx atherosclerotic disease - Troponin Troponin: </= normal limit - Score Heart Score - Total: 4 ED Treatment Course - LABORATORY CBC & Chemistry Diagram: 04/13/17 07:45 04/13/17 07:45 Medical Decision Making - Medical Decision Making 04/13/17 07:42 61 yo M with h/o HTN, HLD, NIDDM, COPD, CHF, A-fib s/p cardioverter/ defibrillator, CAD s/p stent placement x 3, CABG x 1 who presents productive cough of 1 week w/ yellow sputum, pleuritic chest pain, and increased Cota. Denies swelling of ext, N/V, fevers/chills, lightheadedness, weakness, urinary complaints, or GI/abdominal complaints. Increased O2 from 3 to 3.5 this past week. Physical exam 95 % O2 on 3.5 L oxygen. Diffuse exp rhonci present. Will consider acute CHF exacerbation vs COPD exacerbation. ED Course: CBC, CMP, Trop, BNP, Cardiac Profile EKG, CXR Duonebs x 1, Oral Prednisone 60 mg 04/13/17 08:54 CXR: No evidence of active pulmonary dz. 04/13/17 09:07 H/H 8.3/26.0: Baseline Hemglobin 7-8 04/13/17 09:08 Cr: 1.7 ( baseline 1.0) 04/13/17 09:08 Trop: Neg BNP: 3440 ( 2009 previous admission ) 04/13/17 09:14 Heart Score 5 13 % risk MACE 04/13/17 11:38 Will admit to med/surg conchis *DC/Admit/Observation/Transfer Diagnosis at time of Disposition: Acute exacerbation of chronic obstructive pulmonary disease (COPD) - Discharge Dispostion Admit: Yes - Referrals - Patient Instructions - Post Discharge Activity
[2017-04-13] MEDS ORDERED: ALBUTEROL SO4 2.5/IPRATROPIUM 0.5 INH SOL 3 ML VIAL.NEB. NEB ONE (07:59)
[2017-04-13 08:03] LABS: MCHC 32.1 g/dl (32.0-35.9); MEAN CELL VOLUME 90.6 fl (80-96); MEAN PLT VOLUME 8.8 fl (7.5-11.1); PLATELET COUNT 241 K/MM3 (134-434); RDW 22.4 % (11.9-15.9); WHITE BLOOD COUNT 7.7 K/mm3 (4.0-10.0)
[2017-04-13] MEDS: ALBUTEROL SO4 2.5/IPRATROPIUM 0.5 INH SOL 3 ML VIAL.NEB. NEB SCH ×4 (08:03→08:44)
[2017-04-13] MEDS ORDERED: predniSONE 20 MG TABLET (UD) PO ONE (08:06)
[2017-04-13] MEDS ORDERED: predniSONE 20 MG TABLET (UD) ONE ×2 (08:07→08:13)
[2017-04-13 08:27] LABS: INR 1.35 (0.82-1.09); PROTHROMBIN TIME (PATIENT) 15.2 SEC (9.98-11.88)
[2017-04-13 08:28] LABS: ALBUMIN 3.6 g/dl (3.4-5.0); ALK PHOS 95 U/L (45-117); ANION GAP 7 (8-16); BILIRUBIN,TOTAL 1.3 mg/dL (0.2-1.0); CALCIUM 8.6 mg/dL (8.5-10.1); CO2 34 mmol/L (21-32); CREATININE 1.7 mg/dL (0.7-1.3); GLUCOSE,RANDOM 133 mg/dL (74-106); SGOT/AST 12 U/L (15-37); SGPT/ALT 18 U/L (12-78); TOT PROT 7.9 g/dl (6.4-8.2)
[2017-04-13 08:29] LABS: CPK 53 IU/L (39-308); TROPONIN I < 0.02 ng/ml (0.00-0.05)
--- NOTE | 2017-04-13 08:56 | PDOC ---
Attending Attestation - Resident Resident Name: Chilo Anayason - ED Attending Attestation I have performed the following: I have examined & evaluated the patient, The case was reviewed & discussed with the resident, I agree w/resident's findings & plan, Exceptions are as noted - HPI HPI: 04/13/17 08:53 61-year-old male with history of CHF, COPD O2 dependent on 3 L at home presents with 1 week of increasing cough productive of yellow sputum and shortness of breath, no fevers or chills, no chest pain or lung pain, no orthopnea or leg swelling. Has required increased oxygen to 3.5 and 4 L at home, presents today for evaluation given this increasing requirement. Reports compliance with his medications. - Physicial Exam PE: 04/13/17 08:54 Afebrile, vital signs within normal limits satting at 95% on 2.5 L Seated upright in stretcher, speaking comfortably but a bit tachypneic No crackles, scant end expiratory wheezing in the left midlung field, otherwise no prolonged expiration or focally decreased breath sounds Regular heart rate - Medical Decision Making 04/13/17 08:54 Patient seen and evaluated with the resident. I agree with the overall evaluation, assessment, and management with the following summary of visit: 61-year-old male with history of CHF and COPD O2 dependent presents with cough and shortness of breath was increasing oxygen requirements at home. Presentation seems most consistent with bronchitis/COPD exacerbation, rule out pneumonia, seems less consistent with CHF. Labs, chest x-ray, EKG Nebulizers, steroids Discuss disposition with Dr. Link and Dr. Queen 04/13/17 09:32 baseline anemia, cxr clear. Cr 1.7, increased from baseline 1. Still more consistent with COPD exacerbation, ? dry given the increased Cr. Will need monitoring given his increasing O2 requirements, gentle hydration given HAILEY and h/o CHF. Heart Score/ECG Review #1 ECG reviewed & interpreted by me at: 07:36 04/13/17 08:56 v-paced at 70, no secondary sign of acute ischemic change
[2017-04-13 09:26] LABS: URINE APPEARANCE SLCLOUDY; URINE BILIRUBIN NEGATIVE (NEGATIVE); URINE BLOOD NEGATIVE (NEGATIVE); URINE COLOR AMBER; URINE GLUCOSE (UA) NEGATIVE (NEGATIVE); URINE KETONE NEGATIVE (NEGATIVE); URINE NITRITE NEGATIVE (NEGATIVE); URINE PROTEIN NEGATIVE (NEGATIVE); URINE UROBILINOGEN 4.0 E.U/dl mg/dL (0.2-1.0)
[2017-04-13 10:04] LABS: PLATELET ESTIMATE ADEQUATE; TOTAL CELLS COUNTED 100
[2017-04-13 10:06] LABS: ANISOCYTOSIS 3+; HYPOCHROMIA 1+; MACROCYTOSIS 1+; MICROCYTOSIS 1+
--- NOTE | 2017-04-13 12:49 | EKG ---
Test Reason : Blood Pressure : / mmHG Vent. Rate : 070 BPM Atrial Rate : 072 BPM P-R Int : 000 ms QRS Dur : 240 ms QT Int : 514 ms P-R-T Axes : 000 -80 101 degrees QTc Int : 555 ms Ventricular-paced rhythm UNDERLYING SLOW ATRIAL FLUTTER VS. ATRIAL TACHYCARDIA ABNORMAL ECG WHEN COMPARED WITH ECG OF 21-MAR-2017 09:31, NO SIGNIFICANT CHANGE WAS FOUND CLINICAL CORRELATION IS RECOMMENDED Confirmed by MIKAL MARSHALL, REKHA ([id number]) on 04/13/2017 12:48:52 PM Referred By: Confirmed By:REKHA REN MD
[2017-04-13 17:06] VITALS: BMI 37.0
[2017-04-13 17:12] LABS: URINE LEUK ESTERASE Negative (NEGATIVE)
--- NOTE | 2017-04-13 19:55 | HP ---
Admitting History and Physical - Primary Care Physician PCP: Jonny Storey - Admission History of Present Illness: 61 yo M with h/o HTN, HLD, NIDDM, COPD, CHF, A-fib s/p cardioverter/ defibrillator, CAD s/p stent placement x 3, CABG x 1 who presents with cough. Patient reports productive cough of 1 week yellow sputum. Endorses fatigue and pleuritic chest pain with cough and deep inhalation. Increased Cota. Denies swelling of ext. Denies N/V, fevers/chills, lightheadedness, weakness, urinary complaints, or GI/abdominal complaints. Increased O2 from 3 to 3.5 this past week. Furesomide 40 mg BID. No home duonebs. Not anticoagulated d/t recent anemia / suspected GI bleed on previous admission ( 03/20-03/25) with negative colonoscopy/endoscopy. Scheduled to have capsule endoscopy done today 0830. PCP. Dr. Fuchs, and button spindler dr. Lind. Tobacco cessation in 2008 2 1/2 ppd for 40 years. - Past Medical History Cardiovascular: Yes: AFIB, CAD, CHF, HTN, Hyperlipdemia Pulmonary: Yes: COPD, Sleep Apnea Renal/: Yes: Renal Inusuff (recent; ?prerenal azotemia) Endocrine: Yes: Diabetes Mellitus - Smoking History Smoking history: Former smoker Have you smoked in the past 12 months: No Aproximately how many cigarettes per day: 0 If you are a former smoker, when did you quit?: 2008 - Alcohol/Substance Use Hx Alcohol Use: No (QUITED ON 2008) Home Medications - Allergies Allergies/Adverse Reactions: Allergies Allergy/AdvReac Type Severity Reaction Status Date / Time No Known Drug Allergies Allergy Verified 04/13/17 06:52 - Home Medications Home Medications: Ambulatory Orders Aspirin [ASA -] 81 mg PO DAILY 07/26/15 Sitagliptin Phos/Metformin HCl [Janumet 50-1,000 mg Tablet] 1 tab PO BID Gabapentin [Neurontin -] 400 mg PO BID capsule 11/14/15 Levothyroxine [Synthroid -] 25 mcg PO DAILY@0700 tablet 11/14/15 Atorvastatin Ca [Lipitor] 20 mg PO DAILY 01/18/16 Glipizide [Glucotrol -] 5 mg PO BID 01/18/16 Losartan Potassium [Cozaar -] 50 mg PO DAILY 01/18/16 Spironolactone [Aldactone -] 25 mg PO DAILY 01/18/16 Furosemide [Lasix -] 40 mg PO DAILY #30 tablet 08/28/16 Carvedilol [Coreg -] 6.25 mg PO BID 03/20/17 Miscellaneous Drug Not In Syst [Outpatient Lab Test] 1 each ASDIR #1 misc Pantoprazole Sodium [Protonix -] 40 mg PO BID #30 tablet.ec 03/25/17 Physical Examination Vital Signs: Vital Signs Temperature 97.8 F 04/13/17 18:10 Pulse Rate 71 04/13/17 18:10 Respiratory Rate 20 04/13/17 18:10 Blood Pressure 99/46 04/13/17 18:10 O2 Sat by Pulse Oximetry (%) 96 04/13/17 17:12 Constitutional: Yes: No Distress HENT: Yes: Atraumatic Neck: Yes: Supple Cardiovascular: Yes: Regular Rate and Rhythm Respiratory: Yes: CTA Bilaterally, Rhonchi Gastrointestinal: Yes: Normal Bowel Sounds Extremities: Yes: WNL Neurological: Yes: Alert, Oriented Labs: CBC, BMP 04/13/17 07:45 04/13/17 07:45 Problem List - Problems (1) Acute exacerbation of chronic obstructive pulmonary disease (COPD) Assessment/Plan: iv steroids due nebs continue home meds Code(s): J44.1 - CHRONIC OBSTRUCTIVE PULMONARY DISEASE W (ACUTE) EXACERBATION (2) Renal insufficiency Code(s): N28.9 - DISORDER OF KIDNEY AND URETER, UNSPECIFIED (3) Atrial fibrillation Assessment/Plan: n meds stable Code(s): I48.91 - UNSPECIFIED ATRIAL FIBRILLATION (4) Diabetes Assessment/Plan: on meds bgms Code(s): E11.9 - TYPE 2 DIABETES MELLITUS WITHOUT COMPLICATIONS (5) HTN (hypertension) Assessment/Plan: on meds stable Code(s): I10 - ESSENTIAL (PRIMARY) HYPERTENSION Qualifiers: (6) Hyperlipidemia Code(s): E78.5 - HYPERLIPIDEMIA, UNSPECIFIED Qualifiers: (7) Hypothyroid Code(s): E03.9 - HYPOTHYROIDISM, UNSPECIFIED Qualifiers: Assessment/Plan Laboratory Tests 04/13/17 04/13/17 04/13/17 07:45 07:45 07:45 WBC 7.7 D RBC 2.87 L Hgb 8.3 L Hct 26.0 L MCV 90.6 MCH 29.0 MCHC 32.1 RDW 22.4 H Plt Count 241 D MPV 8.8 Total Counted 100 Neutrophils % No Result Required. Neutrophils % (Manual) 86.0 H Lymphocytes % No Result Required. Lymphocytes % (Manual) 8.0 D Monocytes % (Manual) 6 D Hypochromia 1+ Platelet Estimate Adequate Anisocytosis 3+ Microcytosis 1+ Macrocytosis 1+ PT with INR 15.20 H INR 1.35 H Sodium 138 Potassium 3.6 Chloride 97 L Carbon Dioxide 34 H Anion Gap 7 L BUN 30 H D Creatinine 1.7 H D Creat Clearance w eGFR 41.46 Random Glucose 133 H Calcium 8.6 Total Bilirubin 1.3 H AST 12 L D ALT 18 Alkaline Phosphatase 95 Creatine Kinase Troponin I B-Natriuretic Peptide Total Protein 7.9 Albumin 3.6 Urine Color Urine Appearance Urine pH Ur Specific [place] Urine Protein Urine Glucose (UA) Urine Ketones Urine Blood Urine Nitrite Urine Bilirubin Urine Urobilinogen Ur Leukocyte Esterase 04/13/17 04/13/17 07:45 09:10 WBC RBC Hgb Hct MCV MCH MCHC RDW Plt Count MPV Total Counted Neutrophils % Neutrophils % (Manual) Lymphocytes % Lymphocytes % (Manual) Monocytes % (Manual) Hypochromia Platelet Estimate Anisocytosis Microcytosis Macrocytosis PT with INR INR Sodium Potassium Chloride Carbon Dioxide Anion Gap BUN Creatinine Creat Clearance w eGFR Random Glucose Calcium Total Bilirubin AST ALT Alkaline Phosphatase Creatine Kinase 53 Troponin I < 0.02 B-Natriuretic Peptide 3440.15 H Total Protein Albumin Urine Color Jessie Urine Appearance Slcloudy Urine pH 5.0 Ur Specific [place] 1.017 Urine Protein Negative Urine Glucose (UA) Negative Urine Ketones Negative Urine Blood Negative Urine Nitrite Negative Urine Bilirubin Negative Urine Urobilinogen 4.0 e.u/dl Ur Leukocyte Esterase Negative Active Medications Generic Name Dose Route Start Last Admin Trade Name Freq PRN Reason Stop Dose Admin Aspirin 81 mg 04/14/17 10:00 Asa - PO DAILY [facility] Atorvastatin Calcium 20 mg 04/14/17 10:00 Lipitor - PO DAILY [facility] Carvedilol 6.25 mg 04/13/17 22:00 Coreg - PO BID [facility] Furosemide 40 mg 04/14/17 10:00 Lasix - PO DAILY [facility] Gabapentin 400 mg 04/13/17 22:00 Neurontin - PO BID [facility] Glipizide 5 mg 04/13/17 22:00 Glucotrol - PO BID [facility] Levothyroxine Sodium 25 mcg 04/14/17 07:00 Synthroid - PO DAILY@0700 [facility] Losartan Potassium 50 mg 04/14/17 10:00 Cozaar - PO DAILY [facility] Non-Formulary Medication 1 tab 04/13/17 22:00 Sitagliptin Phos/Metformin Hcl [Janumet 50-1,000 Mg Tablet] PO BID [facility] Pantoprazole Sodium 40 mg 04/13/17 22:00 Protonix - PO BID [facility] Spironolactone 25 mg 04/14/17 10:00 Aldactone - PO DAILY [facility]
[2017-04-13] MEDS ORDERED: ACETAMINOPHEN 325 MG TABLET (FP) PO PRN (19:57)
[2017-04-13] MEDS ORDERED: ALBUTEROL SO4 2.5/IPRATROPIUM 0.5 INH SOL 3 ML VIAL.NEB. NEB PRN (19:57)
[2017-04-13] MEDS ORDERED: CEFTRIAXONE 1 GM in DEXTROSE 5%-WATER - 100 ML IVPB SCH (20:00)
[2017-04-13] MEDS: CEFTRIAXONE 1 G/50 ML PREMIX 50 ML IVPB SCH (21:19)
[2017-04-13] MEDS: methylPREDNISolone NA SUCC 40 MG/1 ML VIAL IVPUSH SCH (21:19)
[2017-04-13] MEDS: GABAPENTIN 400 MG CAPSULE (FP) PO SCH (21:22)
[2017-04-13] MEDS: HEPARIN NA (PORCINE) 5,000 UNITS/ML 1ML VIAL SQ SCH (21:22)
[2017-04-13] MEDS: PANTOPRAZOLE 40 MG TABLET (FP) PO SCH (21:22)
[2017-04-13] MEDS: CARVEDILOL 6.25 MG TABLET (FP) PO SCH (21:30)
[2017-04-13] MEDS ORDERED: PATIENT'S OWN MEDICATION (NON-FORMULARY) (Sitagliptin Phos/Metformin Hcl [Janumet 50-1,000 PO SCH (22:00)
[2017-04-14] MEDS: methylPREDNISolone NA SUCC 40 MG/1 ML VIAL IVPUSH SCH ×3 (02:35→16:22)
[2017-04-14] MEDS: sitaGLIPtin PHOSPHATE 50 MG TABLET PO SCH ×2 (06:41→17:10)
[2017-04-14] MEDS: glipiZIDE 5 MG TABLET (FP) PO SCH ×2 (06:41→17:10)
[2017-04-14] MEDS: LEVOTHYROXINE NA 25 MCG TABLET (FP) PO SCH (06:41)
[2017-04-14] MEDS: metFORMIN HCL 500 MG TABLET (FP) PO SCH ×2 (06:41→17:09)
[2017-04-14] MEDS ORDERED: FUROSEMIDE 40 MG TABLET (FP) PO SCH (10:00)
[2017-04-14] MEDS: SPIRONOLACTONE 25 MG TABLET (FP) PO SCH (11:28)
[2017-04-14] MEDS: GABAPENTIN 400 MG CAPSULE (FP) PO SCH ×2 (11:28→22:20)
[2017-04-14] MEDS: LOSARTAN POTASSIUM 50 MG TABLET (FP) PO SCH (11:28)
[2017-04-14] MEDS: CEFTRIAXONE 1 G/50 ML PREMIX 50 ML IVPB SCH (11:28)
[2017-04-14] MEDS: CARVEDILOL 6.25 MG TABLET (FP) PO SCH ×2 (11:28→22:19)
[2017-04-14] MEDS: HEPARIN NA (PORCINE) 5,000 UNITS/ML 1ML VIAL SQ SCH ×3 (11:29→22:20)
[2017-04-14] MEDS: ASPIRIN 81 MG CHEWABLE TABLETS PO SCH (11:29)
[2017-04-14] MEDS: ATORVASTATIN CA 20 MG TABLET (FP) PO SCH (11:29)
[2017-04-14] MEDS: PANTOPRAZOLE 40 MG TABLET (FP) PO SCH ×2 (11:29→22:19)
--- NOTE | 2017-04-14 12:37 | CONSULT ---
Consultation: REQUESTING PROVIDER: CONSULT REQUEST: We have been asked to medically evaluate this patient for COPD/ PNA. HISTORY OF PRESENT ILLNESS: 61M w/ hx of COPD on home O2, CHF, a-fib s/p cardioverter/defibrillator, CAD s/ p stents x 3 and CABG x 1, and SHELDON presenting with 5 days of cough. Per patient , he developed a productive cough with thin yellow sputum 5 days ago. It has been associated with chest pain upon coughing, fatigue, increased dyspnea on exertion, increase from 3L NC to 4L, and wheezing. He denies worsening of 3 pillow orthopnea or LE swelling, fevers, chills, palpitations, abdominal pain, n /v/d/c, dysuria, preceding viral symptoms, and recent travel. He endorses a sick contact in his who has had a cold. Of note, pt was recently in the hospital for SOB, was found to have significant anemia, underwent colonoscopy and endocoscopy although no GI bleeding source was identified, and pt was scheduled to undergo capsule endoscopy yesterday. REVIEW OF SYSTEMS: CONSTITUTIONAL: Absent: fever, chills, diaphoresis, generalized weakness, malaise, loss of appetite, weight change present: fatigue HEENT: Absent: rhinorrhea, nasal congestion, throat pain, throat swelling, difficulty swallowing, mouth swelling, ear pain, eye pain, visual changes CARDIOVASCULAR: Absent: syncope, palpitations, irregular heart rate, lightheadedness, peripheral edema present: chest pain upon coughing RESPIRATORY: Absent: stridor, hemoptysis present: cough, SOB, MORRIS, orthopnea, wheezing GASTROINTESTINAL: Absent: abdominal pain, abdominal distension, nausea, vomiting, diarrhea, constipation, melena, hematochezia GENITOURINARY: Absent: dysuria, frequency, urgency, hesitancy, hematuria, flank pain, genital pain MUSCULOSKELETAL: Absent: myalgia, arthralgia, joint swelling, back pain, neck pain SKIN: Absent: rash, itching, pallor HEMATOLOGIC/IMMUNOLOGIC: Absent: easy bleeding, easy bruising, lymphadenopathy, frequent infections ENDOCRINE: Absent: unexplained weight gain, unexplained weight loss, heat intolerance, cold intolerance NEUROLOGIC: Absent: headache, focal weakness or paresthesias, dizziness, unsteady gait, seizure, mental status changes, bladder or bowel incontinence PSYCHIATRIC: Absent: anxiety, depression, suicidal or homicidal ideation, hallucinations. PHYSICAL EXAMINATION Vital Signs - 24 hr 04/13/17 04/13/17 04/13/17 13:26 13:49 14:00 Temperature 98.6 F Pulse Rate 70 Pulse Rate [ 70 Apical] Respiratory 20 18 Rate Blood Pressure 110/65 Blood Pressure 100/45 [Right Arm] O2 Sat by Pulse 96 Oximetry (%) 04/13/17 04/13/17 04/13/17 17:12 18:10 22:00 Temperature 97.8 F 97.9 F Pulse Rate 71 70 Pulse Rate [ Apical] Respiratory 18 20 20 Rate Blood Pressure 99/46 110/55 Blood Pressure [Right Arm] O2 Sat by Pulse 96 95 Oximetry (%) 04/14/17 04/14/17 06:00 10:00 Temperature 97.8 F 97.0 F L Pulse Rate 72 70 Pulse Rate [ Apical] Respiratory 20 22 Rate Blood Pressure 108/65 118/66 Blood Pressure [Right Arm] O2 Sat by Pulse Oximetry (%) GENERAL: obese male, awake, alert, and fully oriented, in no acute distress. HEENT: moist mucous membranes, NC, AT, EOMI NECK: Normal range of motion, supple without lymphadenopathy, JVD, or masses. LUNGS: tight lung sounds HEART: irregularly irregular rhythm, normal S1 and S2 without murmur, rub or gallop. ABDOMEN: Soft, nontender, not distended, normoactive bowel sounds, no guarding, no rebound, no masses. No hepatomegaly or splenomegaly. MUSCULOSKELETAL: Normal range of motion at all joints. No bony deformities or tenderness. No CVA tenderness. UPPER EXTREMITIES: 2+ pulses, warm, well-perfused. No cyanosis. No clubbing. Cap refill <2 seconds. No peripheral edema. LOWER EXTREMITIES: 2+ pulses, warm, well-perfused. No calf tenderness. No peripheral edema. NEUROLOGICAL: Cranial nerves II-XII intact. Normal speech. PSYCHIATRIC: Cooperative. Good eye contact. Appropriate mood and affect. SKIN: Warm, dry, normal turgor, no rashes or lesions noted. Laboratory Results - last 24 hr 04/13/17 09:10 Ur Leukocyte Esterase Negative Active Medications Generic Name Dose Route Start Last Admin Trade Name Freq PRN Reason Stop Dose Admin Acetaminophen 650 mg 04/13/17 19:57 Tylenol - PO Q6H PRN FEVER OR PAIN Albuterol/Ipratropium 1 amp 04/13/17 19:57 04/13/17 22:04 Duoneb - NEB 1 amp Q4H PRN Administration SHORTNESS OF BREATH Aspirin 81 mg 04/14/17 10:00 04/14/17 11:29 Asa - PO 81 mg DAILY JOSE Administration Atorvastatin Calcium 20 mg 04/14/17 10:00 04/14/17 11:29 Lipitor - PO 20 mg DAILY JOSE Administration Carvedilol 6.25 mg 04/13/17 22:00 04/14/17 11:28 Coreg - PO 6.25 mg BID JOSE Administration Furosemide 40 mg 04/14/17 10:00 04/14/17 11:29 Lasix - PO 40 mg DAILY JOSE Administration Gabapentin 400 mg 04/13/17 22:00 04/14/17 11:28 Neurontin - PO 400 mg BID JOSE Administration Glipizide 5 mg 04/14/17 07:00 04/14/17 06:41 Glucotrol - PO 5 mg BIDAC JOSE Administration Heparin Sodium (Porcine) 5,000 unit 04/13/17 22:00 04/14/17 11:48 Heparin - SQ Not Given BID JOSE CEFTRIAXONE 1 G/50 ML PREMIX 50 mls @ 100 mls/hr 04/13/17 20:00 04/14/17 11: 28 Ceftriaxone 1 Gm-D5w Bag IVPB 100 mls/hr DAILY JOSE Administration Levothyroxine Sodium 25 mcg 04/14/17 07:00 04/14/17 06:41 Synthroid - PO 25 mcg DAILY@0700 JOSE Administration Losartan Potassium 50 mg 04/14/17 10:00 04/14/17 11:28 Cozaar - PO 50 mg DAILY JOSE Administration Metformin HCl 500 mg 04/14/17 07:00 04/14/17 06:41 Glucophage - PO 500 mg BIDAC JOSE Administration Methylprednisolone Sodium Succinate 60 mg 04/13/17 21:00 04/14/17 11:43 Solu-Medrol - IVPUSH 60 mg Q6H-IV JOSE Administration Pantoprazole Sodium 40 mg 04/13/17 22:00 04/14/17 11:29 Protonix - PO 40 mg BID JOSE Administration Sitagliptin Phosphate 50 mg 04/14/17 07:00 04/14/17 06:41 Januvia - PO 50 mg BIDAC JOSE Administration Spironolactone 25 mg 04/14/17 10:00 04/14/17 11:28 Aldactone - PO 25 mg DAILY JOSE Administration CXR: no active lung disease ASSESSMENT/PLAN: 61M w/ hx of COPD on home O2, CHF, a-fib s/p cardioverter/defibrillator, CAD s/ p stents x 3 and CABG x 1, and SHELDON presenting with 5 days of cough. #COPD exacerbation -solumedrol 60mg -duonebs q4h PRN -ceftriaxone 1g -lasix -O2 via NC, maintain O2 level between 88% and 92% -incentive spirometer Rest of care per medical team Plan discussed with attending, Dr. Coyne. Dispo: We will continue to follow the patient. Thank you for this consultative opportunity. -Cooper Quintana MD PGY1 Pulmonology Team Visit type - Emergency Visit Emergency Visit: Yes ED Registration Date: 04/13/17 Care time: The patient presented to the Emergency Department on the above date and was hospitalized for further evaluation of their emergent condition. - New Patient This patient is new to me today: Yes Date on this admission: 04/14/17 - Critical Care Critical Care patient: No
[2017-04-14] MEDS ORDERED: ALBUTEROL SO4 0.083% IH SOL 2.5 MG/3 ML VIAL.NEB. NEB PRN (16:12)
--- NOTE | 2017-04-14 16:19 | PN ---
Teaching Attending Note Name of Resident: Cooper Quintana ATTENDING PHYSICIAN STATEMENT I saw and evaluated the patient. I reviewed the resident's note and discussed the case with the resident. I agree with the resident's findings and plan as documented. SUBJECTIVE: 61 M, very severe OSAS with an RDI of 92.6 events per hour. BiLevel support , which he reports good compliance except when he has respiratory illnesses. Additional history of O2 dependent COPD, CHF, AFib, S/P cardioversion, defibrillator placement, CAD s/p stents x 3 and CABG x 1. 5 days of congested cough. No travel history or sick contacts. CXR: no acute process GENERAL: obese male, awake, alert, and fully oriented, in no acute distress. HEENT: moist mucous membranes, NC, AT, EOMI NECK: Normal range of motion, supple without lymphadenopathy, JVD, or masses. LUNGS: Prolonged I:E ratio, which slight expiratory wheeze HEART: irregularly irregular rhythm, normal S1 and S2 without murmur, rub or gallop. ABDOMEN: Soft, nontender, not distended, normoactive bowel sounds, no guarding, no rebound, no masses. No hepatomegaly or splenomegaly. MUSCULOSKELETAL: Normal range of motion at all joints. No bony deformities or tenderness. No CVA tenderness. UPPER EXTREMITIES: 2+ pulses, warm, well-perfused. No cyanosis. No clubbing. Cap refill <2 seconds. No peripheral edema. LOWER EXTREMITIES: 2+ pulses, warm, well-perfused. No calf tenderness. No peripheral edema. NEUROLOGICAL: Non-focal PSYCHIATRIC: Cooperative. SKIN: Warm, dry, normal turgor, no rashes or lesions noted. Laboratory Results - last 24 hr 04/13/17 09:10 Ur Leukocyte Esterase Negative Active Medications Generic Name Dose Route Start Last Admin Trade Name Freq PRN Reason Stop Dose Admin Acetaminophen 650 mg 04/13/17 19:57 Tylenol - PO Q6H PRN FEVER OR PAIN Albuterol/Ipratropium 1 amp 04/13/17 19:57 04/13/17 22:04 Duoneb - NEB 1 amp Q4H PRN Administration SHORTNESS OF BREATH Aspirin 81 mg 04/14/17 10:00 04/14/17 11:29 Asa - PO 81 mg DAILY JOSE Administration Atorvastatin Calcium 20 mg 04/14/17 10:00 04/14/17 11:29 Lipitor - PO 20 mg DAILY JOSE Administration Carvedilol 6.25 mg 04/13/17 22:00 04/14/17 11:28 Coreg - PO 6.25 mg BID JOSE Administration Furosemide 40 mg 04/14/17 10:00 04/14/17 11:29 Lasix - PO 40 mg DAILY JOSE Administration Gabapentin 400 mg 04/13/17 22:00 04/14/17 11:28 Neurontin - PO 400 mg BID JOSE Administration Glipizide 5 mg 04/14/17 07:00 04/14/17 06:41 Glucotrol - PO 5 mg BIDAC JOSE Administration Heparin Sodium (Porcine) 5,000 unit 04/13/17 22:00 04/14/17 11:48 Heparin - SQ Not Given BID JOSE CEFTRIAXONE 1 G/50 ML PREMIX 50 mls @ 100 mls/hr 04/13/17 20:00 04/14/17 11: 28 Ceftriaxone 1 Gm-D5w Bag IVPB 100 mls/hr DAILY JOSE Administration Levothyroxine Sodium 25 mcg 04/14/17 07:00 04/14/17 06:41 Synthroid - PO 25 mcg DAILY@0700 JOSE Administration Losartan Potassium 50 mg 04/14/17 10:00 04/14/17 11:28 Cozaar - PO 50 mg DAILY JOSE Administration Metformin HCl 500 mg 04/14/17 07:00 04/14/17 06:41 Glucophage - PO 500 mg BIDAC JOSE Administration Methylprednisolone Sodium Succinate 60 mg 04/13/17 21:00 04/14/17 11:43 Solu-Medrol - IVPUSH 60 mg Q6H-IV JOSE Administration Pantoprazole Sodium 40 mg 04/13/17 22:00 04/14/17 11:29 Protonix - PO 40 mg BID JOSE Administration Sitagliptin Phosphate 50 mg 04/14/17 07:00 04/14/17 06:41 Januvia - PO 50 mg BIDAC JOSE Administration Spironolactone 25 mg 04/14/17 10:00 04/14/17 11:28 Aldactone - PO 25 mg DAILY JOSE Administration CXR: no active lung disease ASSESSMENT/PLAN: AE of COPD Do not suspect bacterial infection O2 dependent COPD CHF AFib S/P cardioversion/defibrillator CAD s/p stents x 3 CABG x 1 Severe SHELDON on BiLevel PLAN: Medrol BD TX Monitor off ABX for now Patient has deferred the use of his BiLevel at this time Home meds Will follow Thank you. Dr Coyne
--- NOTE | 2017-04-14 18:32 | CON.CARD ---
Consult Consult Specialty:: cardiology Reason for Consultation:: CHF; shortness of breath - History of Present Illness Chief Complaint: continued cough (forceful; dry) History of Present Illness: 61 yo white man with h/o severe systolic CHF-->ICD (followed at [facility] Heart Failure clinic), A-fib, CAD s/p stent placement x 3, CABG x 1, HTN, HLD, DM, COPD, obesity,severe obstructive sleep apnea, who presents with cough. Patient reports productive cough of 1 week yellow sputum. Endorses fatigue and pleuritic chest pain with cough and deep inhalation. Increased MORRIS. Denies swelling of ext. Denies N/V, fevers/chills, lightheadedness, weakness, urinary complaints, or GI/abdominal complaints. Increased O2 from 3 to 3.5 this past week. Furesomide 40 mg BID. No home duonebs. Not anticoagulated d/t recent anemia / suspected GI bleed on previous admission ( 03/20-03/25) with negative colonoscopy/endoscopy. Scheduled to have capsule endoscopy done today 0830; appoitment rescheduled for next week. Tobacco cessation in 2008 2 05/12 ppd for 40 years. PCP: Dr. Fuchs Chief Meteorologist: Dr. Queen - History Source History Provided By: Patient, Family Member, Medical Record Limitations to Obtaining History: No Limitations - Past Medical History Cardio/Vascular: Yes: AFIB, CAD, CHF, HTN, Hyperlipdemia Pulmonary: Yes: COPD, Sleep Apnea Renal/: Yes: Renal Inusuff (recent; ?prerenal azotemia) Endocrine: Yes: Diabetes Mellitus - Alcohol/Substance Use Hx Alcohol Use: No (QUITED ON 2008) - Smoking History Smoking history: Former smoker Have you smoked in the past 12 months: No Aproximately how many cigarettes per day: 0 If you are a former smoker, when did you quit?: 2008 - Social History Usual Living Arrangement: With Spouse Home Medications - Allergies Allergies/Adverse Reactions: Allergies Allergy/AdvReac Type Severity Reaction Status Date / Time No Known Drug Allergies Allergy Verified 04/13/17 06:52 - Home Medications Home Medications: Ambulatory Orders Aspirin [ASA -] 81 mg PO DAILY 07/26/15 Sitagliptin Phos/Metformin HCl [Janumet 50-1,000 mg Tablet] 1 tab PO BID Gabapentin [Neurontin -] 400 mg PO BID capsule 11/14/15 Levothyroxine [Synthroid -] 25 mcg PO DAILY@0700 tablet 11/14/15 Atorvastatin Ca [Lipitor] 20 mg PO DAILY 01/18/16 Glipizide [Glucotrol -] 5 mg PO BID 01/18/16 Losartan Potassium [Cozaar -] 50 mg PO DAILY 01/18/16 Spironolactone [Aldactone -] 25 mg PO DAILY 01/18/16 Furosemide [Lasix -] 40 mg PO DAILY #30 tablet 08/28/16 Carvedilol [Coreg -] 6.25 mg PO BID 03/20/17 Miscellaneous Drug Not In Syst [Outpatient Lab Test] 1 each ASDIR #1 misc Pantoprazole Sodium [Protonix -] 40 mg PO BID #30 tablet.ec 03/25/17 Family Disease History - Family Disease History Family History: Denies Review of Systems - Review of Systems Constitutional: reports: Malaise Eyes: reports: No Symptoms HENT: reports: No Symptoms Neck: reports: No Symptoms Cardiovascular: reports: Shortness of Breath Respiratory: reports: Cough, SOB Gastrointestinal: reports: No Symptoms Genitourinary: reports: No Symptoms Breasts: reports: No Symptoms Reported Musculoskeletal: reports: Joint Swelling Integumentary: reports: Other Neurological: reports: No Symptoms Endocrine: reports: No Symptoms Hematology/Lymphatic: reports: No Symptoms Psychiatric: reports: Altered Sleep Pattern - Risk Factors Known Risk Factors: Yes: Age, Diabetes Mellitus, Gender, Hypercholesterolemia, Hypertension, Physical Inactivity, Smoking (former), Other (CAD; s/p CABG; s/p PCI) Vital Signs: Vital Signs Temperature 97.6 F 04/14/17 18:00 Pulse Rate 70 04/14/17 18:00 Respiratory Rate 20 04/14/17 18:00 Blood Pressure 113/63 04/14/17 18:00 O2 Sat by Pulse Oximetry (%) 94 L 04/14/17 09:00 Constitutional: Yes: Calm Eyes: Yes: WNL HENT: Yes: WNL Neck: Yes: WNL Respiratory: Yes: Cough, SOB on Exertion Gastrointestinal: Yes: Soft, Abdomen, Obese Renal/: No: Anuria Cardiovascular: Yes: Regular Rate and Rhythm JVD: No Carotid Bruit: No PMI: Displaced Heart Sounds: Yes: S1 (varies in intensity), Split S2 Murmur: Yes: Systolic Murmur, Grade 2 Musculoskeletal: Yes: Muscle Weakness Extremities: Yes: Cool Edema: Yes Edema: LLE: Trace, RLE: Trace Peripheral Pulses WNL: Yes Integumentary: Yes: Venous Stasis Changes Neurological: Yes: Alert, Oriented Psychiatric: Yes: Alert, Oriented - Other Data Labs, Other Data: CBC, BMP 04/13/17 07:45 04/13/17 07:45 INR, PTT INR 1.35 (0.82-1.09) H 04/13/17 07:45 Ejection Fraction %: LVEF < 40 % Imaging - Results Chest X-ray: Image Reviewed (no acute pathology) EKG: Image Reviewed (AF; ventricular paced rhythm) Problem List - Problems (1) Atrial fibrillation Code(s): I48.91 - UNSPECIFIED ATRIAL FIBRILLATION (2) Congestive heart failure with left ventricular systolic dysfunction Assessment/Plan: Continue carvedilol, losartan, and spironolactone. Hold furosemide; f/u BUN/Cr, electrolytes. Code(s): I50.20 - UNSPECIFIED SYSTOLIC (CONGESTIVE) HEART FAILURE (3) Diabetes Code(s): E11.9 - TYPE 2 DIABETES MELLITUS WITHOUT COMPLICATIONS (4) HTN (hypertension) Code(s): I10 - ESSENTIAL (PRIMARY) HYPERTENSION Qualifiers: (5) Hyperlipidemia Assessment/Plan: on atorvastatin. F/u lipid levels. Code(s): E78.5 - HYPERLIPIDEMIA, UNSPECIFIED Qualifiers: (6) Hypothyroid Code(s): E03.9 - HYPOTHYROIDISM, UNSPECIFIED Qualifiers: (7) Morbid obesity Assessment/Plan: Pt says he is following a healthier diet, and has lost several pounds. Code(s): E66.01 - MORBID (SEVERE) OBESITY DUE TO EXCESS CALORIES (8) Obstructive sleep apnea Assessment/Plan: The need to comply with treatment was discussed with pt. Code(s): G47.33 - OBSTRUCTIVE SLEEP APNEA (ADULT) (PEDIATRIC) (9) S/P implantation of automatic cardioverter/defibrillator (AICD) Code(s): Z95.810 - PRESENCE OF AUTOMATIC (IMPLANTABLE) CARDIAC DEFIBRILLATOR (10) Acute exacerbation of chronic obstructive pulmonary disease (COPD) Assessment/Plan: bronchodilators, O2, and steroids per pumtauruslogist. F/u off antibiotics. Code(s): J44.1 - CHRONIC OBSTRUCTIVE PULMONARY DISEASE W (ACUTE) EXACERBATION (11) GI bleed Assessment/Plan: recent admission for significant GI bleed-->PRBCs; endoscopy and colonoscopy did not detect source. Pt for video capsule endoscopy. As discussed with Dr. Villanueva, pt may continue daily ASA 81 mg daily, but should be off all other antiplatelets and anticoagulants (including heparin), and decision on when to restart NOAC deferred until this test is completed (planned for next week). Code(s): K92.2 - GASTROINTESTINAL HEMORRHAGE, UNSPECIFIED
--- NOTE | 2017-04-14 20:41 | PN ---
Progress Note, Physician History of Present Illness: wants to go home - Current Medication List Current Medications: Active Medications Acetaminophen (Tylenol -) 650 mg PO Q6H PRN PRN Reason: FEVER OR PAIN Albuterol Sulfate (Ventolin 0.083% Nebulizer Soln -) 1 amp NEB Q4H PRN PRN Reason: SHORT OF BREATH/WHEEZING Albuterol/Ipratropium (Duoneb -) 1 amp NEB TIDR JOSE Aspirin (Asa -) 81 mg PO DAILY [facility] Last Admin: 04/14/17 11:29 Dose: 81 mg Atorvastatin Calcium (Lipitor -) 20 mg PO DAILY [facility] Last Admin: 04/14/17 11:29 Dose: 20 mg Carvedilol (Coreg -) 6.25 mg PO BID [facility] Last Admin: 04/14/17 11:28 Dose: 6.25 mg Furosemide (Lasix -) 40 mg PO DAILY [facility] Last Admin: 04/14/17 11:29 Dose: 40 mg Gabapentin (Neurontin -) 400 mg PO BID [facility] Last Admin: 04/14/17 11:28 Dose: 400 mg Glipizide (Glucotrol -) 5 mg PO BIDAC [facility] Last Admin: 04/14/17 17:10 Dose: 5 mg Heparin Sodium (Porcine) (Heparin -) 5,000 unit SQ BID [facility] Last Admin: 04/14/17 11:48 Dose: Not Given CEFTRIAXONE 1 G/50 ML PREMIX (Ceftriaxone 1 Gm-D5w Bag) 50 mls @ 100 mls/hr IVPB DAILY [facility] Last Admin: 04/14/17 11:28 Dose: 100 mls/hr Levothyroxine Sodium (Synthroid -) 25 mcg PO DAILY@0700 [facility] Last Admin: 04/14/17 06:41 Dose: 25 mcg Losartan Potassium (Cozaar -) 50 mg PO DAILY [facility] Last Admin: 04/14/17 11:28 Dose: 50 mg Metformin HCl (Glucophage -) 500 mg PO BIDAC [facility] Last Admin: 04/14/17 17:09 Dose: 500 mg Pantoprazole Sodium (Protonix -) 40 mg PO BID [facility] Last Admin: 04/14/17 11:29 Dose: 40 mg Prednisone (Deltasone -) 40 mg PO DAILY [facility] Sitagliptin Phosphate (Januvia -) 50 mg PO BIDAC [facility] Last Admin: 04/14/17 17:10 Dose: 50 mg Spironolactone (Aldactone -) 25 mg PO DAILY JOSE Last Admin: 04/14/17 11:28 Dose: 25 mg - Objective Vital Signs: Vital Signs Temperature 97.6 F 04/14/17 18:00 Pulse Rate 70 04/14/17 18:00 Respiratory Rate 20 04/14/17 18:00 Blood Pressure 113/63 04/14/17 18:00 O2 Sat by Pulse Oximetry (%) 94 L 04/14/17 09:00 Constitutional: Yes: No Distress HENT: Yes: Atraumatic Neck: Yes: Supple Cardiovascular: Yes: Regular Rate and Rhythm Respiratory: Yes: CTA Bilaterally, Rhonchi Extremities: Yes: WNL Neurological: Yes: Alert, Oriented Labs: CBC, BMP 04/13/17 07:45 04/13/17 07:45 INR, PTT INR 1.35 (0.82-1.09) H 04/13/17 07:45 Problem List - Problems (1) Acute exacerbation of chronic obstructive pulmonary disease (COPD) Code(s): J44.1 - CHRONIC OBSTRUCTIVE PULMONARY DISEASE W (ACUTE) EXACERBATION (2) Renal insufficiency Code(s): N28.9 - DISORDER OF KIDNEY AND URETER, UNSPECIFIED (3) Atrial fibrillation Code(s): I48.91 - UNSPECIFIED ATRIAL FIBRILLATION (4) Diabetes Code(s): E11.9 - TYPE 2 DIABETES MELLITUS WITHOUT COMPLICATIONS (5) HTN (hypertension) Code(s): I10 - ESSENTIAL (PRIMARY) HYPERTENSION Qualifiers: (6) Hyperlipidemia Code(s): E78.5 - HYPERLIPIDEMIA, UNSPECIFIED Qualifiers: (7) Hypothyroid Code(s): E03.9 - HYPOTHYROIDISM, UNSPECIFIED Qualifiers:
[2017-04-14] MEDS: predniSONE 20 MG TABLET (UD) PO SCH (22:19)
[2017-04-14] MEDS: ALBUTEROL SO4 2.5/IPRATROPIUM 0.5 INH SOL 3 ML VIAL.NEB. NEB SCH (23:22)
[2017-04-15] MEDS: metFORMIN HCL 500 MG TABLET (FP) PO SCH ×2 (06:27→17:08)
[2017-04-15] MEDS: sitaGLIPtin PHOSPHATE 50 MG TABLET PO SCH ×2 (06:27→17:08)
[2017-04-15] MEDS: glipiZIDE 5 MG TABLET (FP) PO SCH ×2 (06:27→17:08)
[2017-04-15] MEDS: LEVOTHYROXINE NA 25 MCG TABLET (FP) PO SCH (06:27)
[2017-04-15] MEDS: ALBUTEROL SO4 2.5/IPRATROPIUM 0.5 INH SOL 3 ML VIAL.NEB. NEB SCH ×3 (06:45→22:48)
[2017-04-15 09:34] LABS: CHOLESTEROL 171 mg/dL (50-200)
[2017-04-15] MEDS ORDERED: PT OWN MED DRAWER 7, Y5N ONE (10:00)
[2017-04-15] MEDS: GABAPENTIN 400 MG CAPSULE (FP) PO SCH ×2 (10:19→21:33)
[2017-04-15] MEDS: ASPIRIN 81 MG CHEWABLE TABLETS PO SCH (10:19)
[2017-04-15] MEDS: CARVEDILOL 6.25 MG TABLET (FP) PO SCH ×2 (10:19→21:33)
[2017-04-15] MEDS: ATORVASTATIN CA 20 MG TABLET (FP) PO SCH (10:19)
[2017-04-15] MEDS: CEFTRIAXONE 1 G/50 ML PREMIX 50 ML IVPB SCH (10:19)
[2017-04-15] MEDS: LOSARTAN POTASSIUM 50 MG TABLET (FP) PO SCH (10:19)
[2017-04-15] MEDS: SPIRONOLACTONE 25 MG TABLET (FP) PO SCH (10:19)
[2017-04-15] MEDS: PANTOPRAZOLE 40 MG TABLET (FP) PO SCH ×2 (10:19→21:33)
[2017-04-15] MEDS: predniSONE 20 MG TABLET (UD) PO SCH (10:19)
--- NOTE | 2017-04-15 11:07 | PN ---
Progress Note, Physician History of Present Illness: 61 yo white man with h/o severe systolic CHF-->ICD (followed at [facility] Heart Failure clinic), A-fib, CAD s/p stent placement x 3, CABG x 1, HTN, HLD, DM, COPD, obesity,severe obstructive sleep apnea, who presents with cough. Patient reports productive cough of 1 week yellow sputum. Endorses fatigue and pleuritic chest pain with cough and deep inhalation. Increased MORRIS. Denies swelling of ext. Denies N/V, fevers/chills, lightheadedness, weakness, urinary complaints, or GI/abdominal complaints. Increased O2 from 3 to 3.5 this past week. Furesomide 40 mg BID. No home duonebs. Not anticoagulated d/t recent anemia / suspected GI bleed on previous admission ( 03/20-03/25) with negative colonoscopy/endoscopy. Scheduled to have capsule endoscopy done today 0830; appoitment rescheduled for next week. Tobacco cessation in 2008 2 1/2 ppd for 40 years. PCP: Dr. Fuchs C Engineer: Dr. Queen - Current Medication List Current Medications: Active Medications Acetaminophen (Tylenol -) 650 mg PO Q6H PRN PRN Reason: FEVER OR PAIN Albuterol Sulfate (Ventolin 0.083% Nebulizer Soln -) 1 amp NEB Q4H PRN PRN Reason: SHORT OF BREATH/WHEEZING Albuterol/Ipratropium (Duoneb -) 1 amp NEB TIDR ON LICENSE OF [facility] Last Admin: 04/15/17 06:45 Dose: 1 amp Aspirin (Asa -) 81 mg PO DAILY ON LICENSE OF [facility] Last Admin: 04/15/17 10:19 Dose: 81 mg Atorvastatin Calcium (Lipitor -) 20 mg PO DAILY ON LICENSE OF [facility] Last Admin: 04/15/17 10:19 Dose: 20 mg Carvedilol (Coreg -) 6.25 mg PO BID ON LICENSE OF [facility] Last Admin: 04/15/17 10:19 Dose: 6.25 mg Gabapentin (Neurontin -) 400 mg PO BID ON LICENSE OF [facility] Last Admin: 04/15/17 10:19 Dose: 400 mg Glipizide (Glucotrol -) 5 mg PO BIDAC ON LICENSE OF [facility] Last Admin: 04/15/17 06:27 Dose: 5 mg CEFTRIAXONE 1 G/50 ML PREMIX (Ceftriaxone 1 Gm-D5w Bag) 50 mls @ 100 mls/hr IVPB DAILY ON LICENSE OF [facility] Last Admin: 04/15/17 10:19 Dose: 100 mls/hr Levothyroxine Sodium (Synthroid -) 25 mcg PO DAILY@0700 ON LICENSE OF [facility] Last Admin: 04/15/17 06:27 Dose: 25 mcg Losartan Potassium (Cozaar -) 50 mg PO DAILY ON LICENSE OF [facility] Last Admin: 04/15/17 10:19 Dose: 50 mg Metformin HCl (Glucophage -) 500 mg PO BIDAC ON LICENSE OF [facility] Last Admin: 04/15/17 06:27 Dose: 500 mg Pantoprazole Sodium (Protonix -) 40 mg PO BID ON LICENSE OF [facility] Last Admin: 04/15/17 10:19 Dose: 40 mg Prednisone (Deltasone -) 40 mg PO DAILY ON LICENSE OF [facility] Last Admin: 04/15/17 10:19 Dose: 40 mg Sitagliptin Phosphate (Januvia -) 50 mg PO BIDAC ON LICENSE OF [facility] Last Admin: 04/15/17 06:27 Dose: 50 mg Spironolactone (Aldactone -) 25 mg PO DAILY ON LICENSE OF [facility] Last Admin: 04/15/17 10:19 Dose: 25 mg - Objective Vital Signs: Vital Signs Temperature 98.3 F 04/15/17 10:09 Pulse Rate 73 04/15/17 10:09 Respiratory Rate 20 04/15/17 10:09 Blood Pressure 123/73 04/15/17 10:09 O2 Sat by Pulse Oximetry (%) 94 L 04/14/17 22:00 Eyes: Yes: WNL, Conjunctiva Clear, EOM Intact HENT: Yes: WNL, Atraumatic, Normocephalic Neck: Yes: WNL, Supple, Trachea Midline Cardiovascular: Yes: WNL, Regular Rate and Rhythm Respiratory: Yes: WNL, Regular, CTA Bilaterally Gastrointestinal: Yes: WNL, Normal Bowel Sounds Genitourinary: Yes: WNL Musculoskeletal: Yes: WNL Extremities: Yes: WNL Edema: Yes Integumentary: Yes: WNL Neurological: Yes: WNL, Alert, Oriented ...Motor Strength: WNL Psychiatric: Yes: WNL Labs: CBC, BMP 04/13/17 07:45 04/13/17 07:45 INR, PTT INR 1.35 (0.82-1.09) H 04/13/17 07:45 Assessment/Plan (1) Atrial fibrillation Code(s): I48.91 - UNSPECIFIED ATRIAL FIBRILLATION (2) Congestive heart failure with left ventricular systolic dysfunction Assessment/Plan: Continue carvedilol, losartan, and spironolactone. Hold furosemide; f/u BUN/Cr, electrolytes. Code(s): I50.20 - UNSPECIFIED SYSTOLIC (CONGESTIVE) HEART FAILURE (3) Diabetes Code(s): E11.9 - TYPE 2 DIABETES MELLITUS WITHOUT COMPLICATIONS (4) HTN (hypertension) Code(s): I10 - ESSENTIAL (PRIMARY) HYPERTENSION Qualifiers: (5) Hyperlipidemia Assessment/Plan: on atorvastatin. F/u lipid levels. Code(s): E78.5 - HYPERLIPIDEMIA, UNSPECIFIED Qualifiers: (6) Hypothyroid Code(s): E03.9 - HYPOTHYROIDISM, UNSPECIFIED Qualifiers: (7) Morbid obesity Assessment/Plan: Pt says he is following a healthier diet, and has lost several pounds. Code(s): E66.01 - MORBID (SEVERE) OBESITY DUE TO EXCESS CALORIES (8) Obstructive sleep apnea Assessment/Plan: The need to comply with treatment was discussed with pt. Code(s): G47.33 - OBSTRUCTIVE SLEEP APNEA (ADULT) (PEDIATRIC) (9) S/P implantation of automatic cardioverter/defibrillator (AICD) Code(s): Z95.810 - PRESENCE OF AUTOMATIC (IMPLANTABLE) CARDIAC DEFIBRILLATOR (10) Acute exacerbation of chronic obstructive pulmonary disease (COPD) Assessment/Plan: bronchodilators, O2, and steroids per pumonologist. F/u off antibiotics. Code(s): J44.1 - CHRONIC OBSTRUCTIVE PULMONARY DISEASE W (ACUTE) EXACERBATION (11) GI bleed Assessment/Plan: recent admission for significant GI bleed-->PRBCs; endoscopy and colonoscopy did not detect source. Pt for video capsule endoscopy. As discussed with Dr. Villanueva, pt may continue daily ASA 81 mg daily, but should be off all other antiplatelets and anticoagulants (including heparin), and decision on when to restart NOAC deferred until this test is completed (planned for next week). Code(s): K92.2 - GASTROINTESTINAL HEMORRHAGE, UNSPECIFIED
--- NOTE | 2017-04-15 11:37 | PN ---
Physical Exam: SUBJECTIVE: Patient seen and examined. Pt reports that breathing and cough are improving. He denies any new complaints including fevers, chills, abdominal pain, n/v/d/c, and dysuria. OBJECTIVE: Vital Signs Period Temp Pulse Resp BP Sys/Villalobos Pulse Ox Last 24 Hr 97.4 F-98.4 F 70-73 18-20 112-127/63-74 94 GENERAL: obese male, awake, alert, and fully oriented, in no acute distress. HEENT: moist mucous membranes, NC, AT, EOMI NECK: Normal range of motion, supple without lymphadenopathy, JVD, or masses. LUNGS: tight lung sounds, sounds similar to yesterday HEART: irregularly irregular rhythm, normal S1 and S2 without murmur, rub or gallop. ABDOMEN: Soft, nontender, not distended, normoactive bowel sounds, no guarding, no rebound, no masses. No hepatomegaly or splenomegaly. MUSCULOSKELETAL: Normal range of motion at all joints. No bony deformities or tenderness. No CVA tenderness. UPPER EXTREMITIES: 2+ pulses, warm, well-perfused. No cyanosis. No clubbing. Cap refill <2 seconds. No peripheral edema. LOWER EXTREMITIES: 2+ pulses, warm, well-perfused. No calf tenderness. No peripheral edema. NEUROLOGICAL: Cranial nerves II-XII intact. Normal speech. PSYCHIATRIC: Cooperative. Good eye contact. Appropriate mood and affect. SKIN: Warm, dry, normal turgor, no rashes or lesions noted. Laboratory Results - last 24 hr 04/15/17 04/15/17 06:29 08:50 POC Glucometer 148 Triglycerides 73 D Cholesterol 171 D Total LDL Cholesterol 113 H D HDL Cholesterol 44 Active Medications Generic Name Dose Route Start Last Admin Trade Name Freq PRN Reason Stop Dose Admin Acetaminophen 650 mg 04/13/17 19:57 Tylenol - PO Q6H PRN FEVER OR PAIN Albuterol Sulfate 1 amp 04/14/17 16:12 Ventolin 0.083% Nebulizer Soln - NEB Q4H PRN SHORT OF BREATH/WHEEZING Albuterol/Ipratropium 1 amp 04/14/17 22:00 04/15/17 06:45 Duoneb - NEB 1 amp TIDR JOSE Administration Aspirin 81 mg 04/14/17 10:00 04/15/17 10:19 Asa - PO 81 mg DAILY JOSE Administration Atorvastatin Calcium 20 mg 04/14/17 10:00 04/15/17 10:19 Lipitor - PO 20 mg DAILY JOSE Administration Carvedilol 6.25 mg 04/13/17 22:00 04/15/17 10:19 Coreg - PO 6.25 mg BID JOSE Administration Gabapentin 400 mg 04/13/17 22:00 04/15/17 10:19 Neurontin - PO 400 mg BID JOSE Administration Glipizide 5 mg 04/14/17 07:00 04/15/17 06:27 Glucotrol - PO 5 mg BIDAC JOSE Administration CEFTRIAXONE 1 G/50 ML PREMIX 50 mls @ 100 mls/hr 04/13/17 20:00 04/15/17 10: 19 Ceftriaxone 1 Gm-D5w Bag IVPB 100 mls/hr DAILY JOSE Administration Levothyroxine Sodium 25 mcg 04/14/17 07:00 04/15/17 06:27 Synthroid - PO 25 mcg DAILY@0700 JOSE Administration Losartan Potassium 50 mg 04/14/17 10:00 04/15/17 10:19 Cozaar - PO 50 mg DAILY JOSE Administration Metformin HCl 500 mg 04/14/17 07:00 04/15/17 06:27 Glucophage - PO 500 mg BIDAC JOSE Administration Pantoprazole Sodium 40 mg 04/13/17 22:00 04/15/17 10:19 Protonix - PO 40 mg BID JOSE Administration Prednisone 40 mg 04/14/17 20:45 04/15/17 10:19 Deltasone - PO 40 mg DAILY JOSE Administration Sitagliptin Phosphate 50 mg 04/14/17 07:00 04/15/17 06:27 Januvia - PO 50 mg BIDAC JOSE Administration Spironolactone 25 mg 04/14/17 10:00 04/15/17 10:19 Aldactone - PO 25 mg DAILY JOSE Administration ASSESSMENT/PLAN: 61M w/ hx of COPD on home O2, CHF, a-fib s/p cardioverter/defibrillator, CAD s/ p stents x 3 and CABG x 1, and SHELDON presenting with 5 days of cough. #COPD exacerbation- improving -solumedrol 60mg -duonebs q4h PRN -ceftriaxone 1g -lasix -O2 via NC, maintain O2 level between 88% and 92% -incentive spirometer -home meds Rest of care per medical team Plan discussed with attending, Dr. Link. Dispo: We will continue to follow the patient. Thank you for this consultative opportunity. -Cooper Quintana MD PGY1 Pulmonology Team Visit type - Emergency Visit Emergency Visit: Yes ED Registration Date: 04/13/17 Care time: The patient presented to the Emergency Department on the above date and was hospitalized for further evaluation of their emergent condition. - New Patient This patient is new to me today: No - Critical Care Critical Care patient: No
--- NOTE | 2017-04-15 12:22 | PN ---
Teaching Attending Note Name of Resident: Cooper Quintana ATTENDING PHYSICIAN STATEMENT I saw and evaluated the patient. I reviewed the resident's note and discussed the case with the resident. I agree with the resident's findings and plan as documented.P ASSESSMENT/PLAN: PULMONARY ALERT,SITTING UP IN BED FEELING BETTER,LESS DYSPNEIC,+ COUGH,-CP IMP Chonic hypoxemic respiratory failure O2 dependent COPD CHF AFib S/P cardioversion/defibrillator CAD s/p stents x 3 CABG x 1 Severe SHELDON on BiLevel PLAN: Prednisone BD TX Monitor off ABX for now Patient has deferred the use of his BiLevel at this time DR ECHEVARRIA Problem List - Problems (1) Chronic hypoxemic respiratory failure Code(s): J96.11 - CHRONIC RESPIRATORY FAILURE WITH HYPOXIA (2) Acute exacerbation of chronic obstructive pulmonary disease (COPD) Code(s): J44.1 - CHRONIC OBSTRUCTIVE PULMONARY DISEASE W (ACUTE) EXACERBATION (3) Atrial fibrillation Code(s): I48.91 - UNSPECIFIED ATRIAL FIBRILLATION (4) Congestive heart failure with left ventricular systolic dysfunction Code(s): I50.20 - UNSPECIFIED SYSTOLIC (CONGESTIVE) HEART FAILURE (5) Diabetes Code(s): E11.9 - TYPE 2 DIABETES MELLITUS WITHOUT COMPLICATIONS (6) HTN (hypertension) Code(s): I10 - ESSENTIAL (PRIMARY) HYPERTENSION Qualifiers: (7) Hyperlipidemia Code(s): E78.5 - HYPERLIPIDEMIA, UNSPECIFIED Qualifiers: (8) Hypothyroid Code(s): E03.9 - HYPOTHYROIDISM, UNSPECIFIED Qualifiers: (9) Morbid obesity Code(s): E66.01 - MORBID (SEVERE) OBESITY DUE TO EXCESS CALORIES (10) Obstructive sleep apnea Code(s): G47.33 - OBSTRUCTIVE SLEEP APNEA (ADULT) (PEDIATRIC) (11) S/P implantation of automatic cardioverter/defibrillator (AICD) Code(s): Z95.810 - PRESENCE OF AUTOMATIC (IMPLANTABLE) CARDIAC DEFIBRILLATOR
--- NOTE | 2017-04-15 18:54 | PN ---
Progress Note, Physician - Current Medication List Current Medications: Active Medications Acetaminophen (Tylenol -) 650 mg PO Q6H PRN PRN Reason: FEVER OR PAIN Albuterol Sulfate (Ventolin 0.083% Nebulizer Soln -) 1 amp NEB Q4H PRN PRN Reason: SHORT OF BREATH/WHEEZING Albuterol/Ipratropium (Duoneb -) 1 amp NEB TIDR [facility] Last Admin: 04/15/17 14:33 Dose: 1 amp Aspirin (Asa -) 81 mg PO DAILY [facility] Last Admin: 04/15/17 10:19 Dose: 81 mg Atorvastatin Calcium (Lipitor -) 20 mg PO DAILY [facility] Last Admin: 04/15/17 10:19 Dose: 20 mg Carvedilol (Coreg -) 6.25 mg PO BID [facility] Last Admin: 04/15/17 10:19 Dose: 6.25 mg Gabapentin (Neurontin -) 400 mg PO BID [facility] Last Admin: 04/15/17 10:19 Dose: 400 mg Glipizide (Glucotrol -) 5 mg PO BIDAC [facility] Last Admin: 04/15/17 17:08 Dose: 5 mg CEFTRIAXONE 1 G/50 ML PREMIX (Ceftriaxone 1 Gm-D5w Bag) 50 mls @ 100 mls/hr IVPB DAILY [facility] Last Admin: 04/15/17 10:19 Dose: 100 mls/hr Levothyroxine Sodium (Synthroid -) 25 mcg PO DAILY@0700 [facility] Last Admin: 04/15/17 06:27 Dose: 25 mcg Losartan Potassium (Cozaar -) 50 mg PO DAILY [facility] Last Admin: 04/15/17 10:19 Dose: 50 mg Metformin HCl (Glucophage -) 500 mg PO BIDAC [facility] Last Admin: 04/15/17 17:08 Dose: 500 mg Pantoprazole Sodium (Protonix -) 40 mg PO BID [facility] Last Admin: 04/15/17 10:19 Dose: 40 mg Prednisone (Deltasone -) 40 mg PO DAILY [facility] Last Admin: 04/15/17 10:19 Dose: 40 mg Sitagliptin Phosphate (Januvia -) 50 mg PO BIDAC [facility] Last Admin: 04/15/17 17:08 Dose: 50 mg Spironolactone (Aldactone -) 25 mg PO DAILY [facility] Last Admin: 04/15/17 10:19 Dose: 25 mg - Objective Vital Signs: Vital Signs Temperature 97.5 F L 04/15/17 14:06 Pulse Rate 70 04/15/17 14:06 Respiratory Rate 20 04/15/17 10:09 Blood Pressure 105/61 04/15/17 14:06 O2 Sat by Pulse Oximetry (%) 95 04/15/17 09:00 Constitutional: Yes: No Distress HENT: Yes: Atraumatic Neck: Yes: Supple Cardiovascular: Yes: Regular Rate and Rhythm Respiratory: Yes: CTA Bilaterally Gastrointestinal: Yes: Normal Bowel Sounds Extremities: Yes: WNL Neurological: Yes: Alert, Oriented Labs: CBC, BMP 04/13/17 07:45 04/13/17 07:45 INR, PTT INR 1.35 (0.82-1.09) H 04/13/17 07:45 Problem List - Problems (1) Acute exacerbation of chronic obstructive pulmonary disease (COPD) Assessment/Plan: iv steroids due nebs continue home meds Code(s): J44.1 - CHRONIC OBSTRUCTIVE PULMONARY DISEASE W (ACUTE) EXACERBATION (2) Renal insufficiency Code(s): N28.9 - DISORDER OF KIDNEY AND URETER, UNSPECIFIED (3) Atrial fibrillation Assessment/Plan: n meds stable Code(s): I48.91 - UNSPECIFIED ATRIAL FIBRILLATION (4) Diabetes Assessment/Plan: on meds bgms Code(s): E11.9 - TYPE 2 DIABETES MELLITUS WITHOUT COMPLICATIONS (5) HTN (hypertension) Code(s): I10 - ESSENTIAL (PRIMARY) HYPERTENSION Qualifiers: (6) Hyperlipidemia Code(s): E78.5 - HYPERLIPIDEMIA, UNSPECIFIED Qualifiers: (7) Hypothyroid Assessment/Plan: on meds stable Code(s): E03.9 - HYPOTHYROIDISM, UNSPECIFIED Qualifiers:
[2017-04-15 19:59] LABS: MCH 29.4 pg (25.7-33.7); MCHC 32.8 g/dl (32.0-35.9); MEAN CELL VOLUME 89.7 fl (80-96); PLATELET COUNT 264 K/MM3 (134-434); RDW 22.3 % (11.9-15.9); WHITE BLOOD COUNT 8.1 K/mm3 (4.0-10.0)
[2017-04-15 20:45] LABS: ALBUMIN 3.4 g/dl (3.4-5.0); ANION GAP 5 (8-16); CALCIUM 8.8 mg/dL (8.5-10.1); CO2 32 mmol/L (21-32); CREATININE 1.3 mg/dL (0.7-1.3); GLUCOSE,RANDOM 206 mg/dL (74-106); SGOT/AST 11 U/L (15-37); SGPT/ALT 23 U/L (12-78)
[2017-04-15 20:48] LABS: ALK PHOS 92 U/L (45-117); BILIRUBIN,TOTAL 0.6 mg/dL (0.2-1.0); TOT PROT 7.7 g/dl (6.4-8.2)
[2017-04-15 22:29] LABS: ANISOCYTOSIS 3+; HYPOCHROMIA 2+; MACROCYTOSIS 2+; MICROCYTOSIS 1+; PLATELET ESTIMATE ADEQUATE
[2017-04-16] MEDS: LEVOTHYROXINE NA 25 MCG TABLET (FP) PO SCH (06:19)
[2017-04-16] MEDS: sitaGLIPtin PHOSPHATE 50 MG TABLET PO SCH ×2 (06:19→17:41)
[2017-04-16] MEDS: metFORMIN HCL 500 MG TABLET (FP) PO SCH ×2 (06:19→17:41)
[2017-04-16] MEDS: glipiZIDE 5 MG TABLET (FP) PO SCH ×2 (06:19→17:41)
[2017-04-16] MEDS: ALBUTEROL SO4 2.5/IPRATROPIUM 0.5 INH SOL 3 ML VIAL.NEB. NEB SCH ×2 (06:35→13:56)
[2017-04-16] MEDS: ASPIRIN 81 MG CHEWABLE TABLETS PO SCH (11:07)
[2017-04-16] MEDS: SPIRONOLACTONE 25 MG TABLET (FP) PO SCH (11:08)
[2017-04-16] MEDS: CARVEDILOL 6.25 MG TABLET (FP) PO SCH (11:08)
[2017-04-16] MEDS: predniSONE 20 MG TABLET (UD) PO SCH (11:08)
[2017-04-16] MEDS: ATORVASTATIN CA 20 MG TABLET (FP) PO SCH (11:08)
[2017-04-16] MEDS: PANTOPRAZOLE 40 MG TABLET (FP) PO SCH (11:08)
[2017-04-16] MEDS: GABAPENTIN 400 MG CAPSULE (FP) PO SCH (11:08)
[2017-04-16] MEDS: LOSARTAN POTASSIUM 50 MG TABLET (FP) PO SCH (11:08)
[2017-04-16] MEDS: CEFTRIAXONE 1 G/50 ML PREMIX 50 ML IVPB SCH (11:09)
--- NOTE | 2017-04-16 11:31 | PN ---
Teaching Attending Note Name of Resident: Cooper Quintana ATTENDING PHYSICIAN STATEMENT I saw and evaluated the patient. I reviewed the resident's note and discussed the case with the resident. I agree with the resident's findings and plan as documented. SUBJECTIVE: OOB to chair. Feels overall better. Close to baseline. Intake & Output 04/13/17 04/14/17 04/15/17 04/16/17 23:59 23:59 23:59 23:59 Intake Total 1350 1390 1075 475 Balance 1350 1390 1075 475 Weight 246 lb 9.6 oz Last Vital Signs Temp Pulse Resp BP Pulse Ox 97.6 F 70 20 130/86 95 04/16/17 06:00 04/16/17 06:00 04/16/17 06:00 04/16/17 06:00 04/15/17 21:00 Active Medications Acetaminophen (Tylenol -) 650 mg PO Q6H PRN PRN Reason: FEVER OR PAIN Albuterol Sulfate (Ventolin 0.083% Nebulizer Soln -) 1 amp NEB Q4H PRN PRN Reason: SHORT OF BREATH/WHEEZING Albuterol/Ipratropium (Duoneb -) 1 amp NEB TIDR [facility] Last Admin: 04/16/17 06:35 Dose: 1 amp Aspirin (Asa -) 81 mg PO DAILY [facility] Last Admin: 04/16/17 11:07 Dose: 81 mg Atorvastatin Calcium (Lipitor -) 20 mg PO DAILY [facility] Last Admin: 04/16/17 11:08 Dose: 20 mg Carvedilol (Coreg -) 6.25 mg PO BID [facility] Last Admin: 04/16/17 11:08 Dose: 6.25 mg Gabapentin (Neurontin -) 400 mg PO BID [facility] Last Admin: 04/16/17 11:08 Dose: 400 mg Glipizide (Glucotrol -) 5 mg PO BIDAC [facility] Last Admin: 04/16/17 06:19 Dose: 5 mg CEFTRIAXONE 1 G/50 ML PREMIX (Ceftriaxone 1 Gm-D5w Bag) 50 mls @ 100 mls/hr IVPB DAILY [facility] Last Admin: 04/16/17 11:09 Dose: 100 mls/hr Levothyroxine Sodium (Synthroid -) 25 mcg PO DAILY@0700 [facility] Last Admin: 04/16/17 06:19 Dose: 25 mcg Losartan Potassium (Cozaar -) 50 mg PO DAILY [facility] Last Admin: 04/16/17 11:08 Dose: 50 mg Metformin HCl (Glucophage -) 500 mg PO BIDAC [facility] Last Admin: 04/16/17 06:19 Dose: 500 mg Pantoprazole Sodium (Protonix -) 40 mg PO BID [facility] Last Admin: 04/16/17 11:08 Dose: 40 mg Prednisone (Deltasone -) 40 mg PO DAILY [facility] Last Admin: 04/16/17 11:08 Dose: 40 mg Sitagliptin Phosphate (Januvia -) 50 mg PO BIDAC [facility] Last Admin: 04/16/17 06:19 Dose: 50 mg Spironolactone (Aldactone -) 25 mg PO DAILY [facility] Last Admin: 04/16/17 11:08 Dose: 25 mg GENERAL: obese male, awake, alert, and fully oriented, in no acute distress. HEENT: moist mucous membranes, NC, AT, EOMI NECK: Normal range of motion, supple without lymphadenopathy, JVD, or masses. LUNGS: Prolonged I:E ratio, No wheeze appreciated HEART: irregularly irregular rhythm, normal S1 and S2 without murmur, rub or gallop. ABDOMEN: Soft, nontender, not distended, normoactive bowel sounds, no guarding, no rebound, no masses. No hepatomegaly or splenomegaly. MUSCULOSKELETAL: Normal range of motion at all joints. No bony deformities or tenderness. No CVA tenderness. UPPER EXTREMITIES: 2+ pulses, warm, well-perfused. No cyanosis. No clubbing. Cap refill <2 seconds. No peripheral edema. LOWER EXTREMITIES: 2+ pulses, warm, well-perfused. No calf tenderness. No peripheral edema. NEUROLOGICAL: Non-focal PSYCHIATRIC: Cooperative. SKIN: Warm, dry, normal turgor, no rashes or lesions noted. Laboratory Results - last 24 hr 04/15/17 04/15/17 04/15/17 17:07 19:10 19:10 WBC 8.1 RBC 2.92 L Hgb 8.6 L Hct 26.2 L MCV 89.7 MCH 29.4 MCHC 32.8 RDW 22.3 H Plt Count 264 MPV 9.0 Neutrophils % No Result Required. Neutrophils % (Manual) 86.0 H Lymphocytes % No Result Required. Lymphocytes % (Manual) 10.0 D Monocytes % (Manual) 4 Hypochromia 2+ Platelet Estimate Adequate Anisocytosis 3+ Microcytosis 1+ Macrocytosis 2+ Sodium 131 L Potassium 4.1 Chloride 94 L Carbon Dioxide 32 Anion Gap 5 L BUN 33 H Creatinine 1.3 D Creat Clearance w eGFR 56.50 POC Glucometer 263 Random Glucose 206 H D Calcium 8.8 Total Bilirubin 0.6 D AST 11 L ALT 23 D Alkaline Phosphatase 92 Total Protein 7.7 Albumin 3.4 04/16/17 05:59 WBC RBC Hgb Hct MCV MCH MCHC RDW Plt Count MPV Neutrophils % Neutrophils % (Manual) Lymphocytes % Lymphocytes % (Manual) Monocytes % (Manual) Hypochromia Platelet Estimate Anisocytosis Microcytosis Macrocytosis Sodium Potassium Chloride Carbon Dioxide Anion Gap BUN Creatinine Creat Clearance w eGFR POC Glucometer 106 Random Glucose Calcium Total Bilirubin AST ALT Alkaline Phosphatase Total Protein Albumin ASSESSMENT/PLAN: AE of COPD Do not suspect bacterial infection O2 dependent COPD CHF AFib S/P cardioversion/defibrillator CAD s/p stents x 3 CABG x 1 Severe SHELDON on BiLevel PLAN: Prednisone taper BD TX Monitor off ABX Follow with Dr Link in the office Patient encouraged to reinitiate the use of his BiLevel device once home Dr Coyne
--- NOTE | 2017-04-16 11:41 | PN ---
Physical Exam: SUBJECTIVE: Patient seen and examined. No acute events overnight. Pt reports SOB and cough has improved, denies any other complaints. OBJECTIVE: Vital Signs Period Temp Pulse Resp BP Sys/Villalobos Pulse Ox Last 24 Hr 97.5 F-97.7 F 70-70 20-20 105-130/61-86 95 GENERAL: The patient is awake, alert, and fully oriented, in no acute distress. HEENT: NC, AT NECK: Trachea midline, full range of motion, supple. LUNGS: bibasilar rales HEART: Regular rate and rhythm, S1, S2 without murmur, rub or gallop. ABDOMEN: Soft, nontender, nondistended, normoactive bowel sounds, no guarding, no rebound, no hepatosplenomegaly, no masses. EXTREMITIES: 2+ LE edema NEUROLOGICAL: Cranial nerves II through XII grossly intact. Normal speech, gait not observed. PSYCH: Normal mood, normal affect. SKIN: Warm, dry, normal turgor, no rashes or lesions noted Laboratory Results - last 24 hr 04/15/17 04/15/17 04/15/17 17:07 19:10 19:10 WBC 8.1 RBC 2.92 L Hgb 8.6 L Hct 26.2 L MCV 89.7 MCH 29.4 MCHC 32.8 RDW 22.3 H Plt Count 264 MPV 9.0 Neutrophils % No Result Required. Neutrophils % (Manual) 86.0 H Lymphocytes % No Result Required. Lymphocytes % (Manual) 10.0 D Monocytes % (Manual) 4 Hypochromia 2+ Platelet Estimate Adequate Anisocytosis 3+ Microcytosis 1+ Macrocytosis 2+ Sodium 131 L Potassium 4.1 Chloride 94 L Carbon Dioxide 32 Anion Gap 5 L BUN 33 H Creatinine 1.3 D Creat Clearance w eGFR 56.50 POC Glucometer 263 Random Glucose 206 H D Calcium 8.8 Total Bilirubin 0.6 D AST 11 L ALT 23 D Alkaline Phosphatase 92 Total Protein 7.7 Albumin 3.4 04/16/17 05:59 WBC RBC Hgb Hct MCV MCH MCHC RDW Plt Count MPV Neutrophils % Neutrophils % (Manual) Lymphocytes % Lymphocytes % (Manual) Monocytes % (Manual) Hypochromia Platelet Estimate Anisocytosis Microcytosis Macrocytosis Sodium Potassium Chloride Carbon Dioxide Anion Gap BUN Creatinine Creat Clearance w eGFR POC Glucometer 106 Random Glucose Calcium Total Bilirubin AST ALT Alkaline Phosphatase Total Protein Albumin Active Medications Generic Name Dose Route Start Last Admin Trade Name Freq PRN Reason Stop Dose Admin Acetaminophen 650 mg 04/13/17 19:57 Tylenol - PO Q6H PRN FEVER OR PAIN Albuterol Sulfate 1 amp 04/14/17 16:12 Ventolin 0.083% Nebulizer Soln - NEB Q4H PRN SHORT OF BREATH/WHEEZING Albuterol/Ipratropium 1 amp 04/14/17 22:00 04/16/17 06:35 Duoneb - NEB 1 amp TIDR JOSE Administration Aspirin 81 mg 04/14/17 10:00 04/16/17 11:07 Asa - PO 81 mg DAILY JOSE Administration Atorvastatin Calcium 20 mg 04/14/17 10:00 04/16/17 11:08 Lipitor - PO 20 mg DAILY JOSE Administration Carvedilol 6.25 mg 04/13/17 22:00 04/16/17 11:08 Coreg - PO 6.25 mg BID JOSE Administration Gabapentin 400 mg 04/13/17 22:00 04/16/17 11:08 Neurontin - PO 400 mg BID JOSE Administration Glipizide 5 mg 04/14/17 07:00 04/16/17 06:19 Glucotrol - PO 5 mg BIDAC JOSE Administration CEFTRIAXONE 1 G/50 ML PREMIX 50 mls @ 100 mls/hr 04/13/17 20:00 04/16/17 11: 09 Ceftriaxone 1 Gm-D5w Bag IVPB 100 mls/hr DAILY JOSE Administration Levothyroxine Sodium 25 mcg 04/14/17 07:00 04/16/17 06:19 Synthroid - PO 25 mcg DAILY@0700 JOSE Administration Losartan Potassium 50 mg 04/14/17 10:00 04/16/17 11:08 Cozaar - PO 50 mg DAILY JOSE Administration Metformin HCl 500 mg 04/14/17 07:00 04/16/17 06:19 Glucophage - PO 500 mg BIDAC JOSE Administration Pantoprazole Sodium 40 mg 04/13/17 22:00 04/16/17 11:08 Protonix - PO 40 mg BID JOSE Administration Prednisone 40 mg 04/14/17 20:45 04/16/17 11:08 Deltasone - PO 40 mg DAILY JOSE Administration Sitagliptin Phosphate 50 mg 04/14/17 07:00 04/16/17 06:19 Januvia - PO 50 mg BIDAC JOSE Administration Spironolactone 25 mg 04/14/17 10:00 04/16/17 11:08 Aldactone - PO 25 mg DAILY JOSE Administration ASSESSMENT/PLAN: 61M w/ hx of COPD on home O2, CHF, a-fib s/p cardioverter/defibrillator, CAD s/ p stents x 3 and CABG x 1, and SHELDON presenting with 5 days of cough. #COPD exacerbation- improving -prednisone taper -duonebs q4h PRN -monitor off of ceftriaxone -lasix -O2 via NC, maintain O2 level between 88% and 92% -incentive spirometer -home meds Rest of care per medical team Plan discussed with attending, Dr. Coyne. Dispo: We will continue to follow the patient. Thank you for this consultative opportunity. -Cooper Quintana MD PGY1 Pulmonology Team Visit type - Emergency Visit Emergency Visit: Yes ED Registration Date: 04/13/17 Care time: The patient presented to the Emergency Department on the above date and was hospitalized for further evaluation of their emergent condition. - New Patient This patient is new to me today: No - Critical Care Critical Care patient: No
[2017-04-16 14:01] VITALS: BP 104/62; PULSE 71; TEMP 98.1
--- NOTE | 2017-04-16 16:35 | DS ---
Physical Examination Vital Signs: Vital Signs Temperature 98.1 F 04/16/17 14:00 Pulse Rate 71 04/16/17 14:00 Respiratory Rate 20 04/16/17 06:00 Blood Pressure 104/62 04/16/17 14:00 O2 Sat by Pulse Oximetry (%) 95 04/15/17 21:00 Constitutional: Yes: No Distress HENT: Yes: Atraumatic Neck: Yes: Supple Cardiovascular: Yes: Regular Rate and Rhythm Respiratory: Yes: CTA Bilaterally Gastrointestinal: Yes: Normal Bowel Sounds Extremities: Yes: WNL Neurological: Yes: Alert, Oriented Labs: CBC, BMP 04/15/17 19:10 04/15/17 19:10 Discharge Summary Reason For Visit: COPD W ACUTE EXACERBATION Current Active Problems Acute exacerbation of chronic obstructive pulmonary disease (COPD) (Acute) Chronic hypoxemic respiratory failure (Acute) GI bleed (Acute) - Instructions Referrals: Jonny Storey MD [Staff Physician] - - Home Medications Comprehensive Discharge Medication List: Ambulatory Orders Aspirin [ASA -] 81 mg PO DAILY 07/26/15 Sitagliptin Phos/Metformin HCl [Janumet 50-1,000 mg Tablet] 1 tab PO BID Gabapentin [Neurontin -] 400 mg PO BID capsule 11/14/15 Levothyroxine [Synthroid -] 25 mcg PO DAILY@0700 tablet 11/14/15 Atorvastatin Ca [Lipitor] 20 mg PO DAILY 01/18/16 Glipizide [Glucotrol -] 5 mg PO BID 01/18/16 Losartan Potassium [Cozaar -] 50 mg PO DAILY 01/18/16 Spironolactone [Aldactone -] 25 mg PO DAILY 01/18/16 Furosemide [Lasix -] 40 mg PO DAILY #30 tablet 08/28/16 Carvedilol [Coreg -] 6.25 mg PO BID 03/20/17 Miscellaneous Drug Not In Syst [Outpatient Lab Test] 1 each ASDIR #1 misc Pantoprazole Sodium [Protonix -] 40 mg PO BID #30 tablet.ec 03/25/17 Prednisone 10 mg PO DAILY #30 tablet 04/15/17 nc home
== END 2017-04-16 18:35 | disposition home or self-care (01) | DRG 191 ==
LOC: JER 06:41 → JERBED 11:38 → OBSVTOIN 13:53 → J5S 14:20
PROVIDERS: ADMIT Internal Medicine; ATTEND Internal Medicine
DX: J44.1 Chronic obstructive pulmonary disease with (acute) exacerbation (principal); J96.11 Chronic respiratory failure with hypoxia; I42.9 Cardiomyopathy, unspecified; I50.22 Chronic systolic (congestive) heart failure; E66.01 Morbid (severe) obesity due to excess calories; I11.0 Hypertensive heart disease with heart failure; I48.91 Unspecified atrial fibrillation; G47.33 Obstructive sleep apnea (adult) (pediatric); I25.10 Atherosclerotic heart disease of native coronary artery without angina pectoris; Z95.5 Presence of coronary angioplasty implant and graft; Z95.1 Presence of aortocoronary bypass graft; Z95.810 Presence of automatic (implantable) cardiac defibrillator; E11.9 Type 2 diabetes mellitus without complications; E78.5 Hyperlipidemia, unspecified; Z87.891 Personal history of nicotine dependence; Z99.81 Dependence on supplemental oxygen; Z68.37 Body mass index [BMI] 37.0-37.9, adult; E03.9 Hypothyroidism, unspecified; Z79.84 Long term (current) use of oral hypoglycemic drugs
CPT/HCPCS: 36415; 71010-TC; 80053; 80061; 81003; 82550; 83721; 83880; 84484; 85025; 85610; 93005; 93010; 94010; 94640; 99283-25; G0378; J1644

== ENCOUNTER 2017-05-05 14:03 | Inpatient (IN) | payer OTHER ==
[2017-05-05 14:10] VITALS: BMI 37.7
[2017-05-05] MEDS ORDERED: ALBUTEROL SO4 2.5/IPRATROPIUM 0.5 INH SOL 3 ML VIAL.NEB. NEB ONE ×2 (14:11→14:31)
--- NOTE | 2017-05-05 14:11 | PDOC ---
Rapid Medical Evaluation Chief Complaint: Shortness of Breath Time Seen by Provider: 05/05/17 14:07 Medical Evaluation: Allergies Allergy/AdvReac Type Severity Reaction Status Date / Time No Known Drug Allergies Allergy Verified 05/05/17 14:06 05/05/17 14:09 Pt presents to the ED: sob worsening over 1 week , recent PNA Pt on brief exam: 79% sat on 3lnc, + accessory muscle usage, decreased BS at bases, no wheezing Pt ordered for: ernesto Pt to proceed to the Emergency Dept 05/05/17 14:11 Discharge Disposition - Diagnosis Acute exacerbation of chronic obstructive pulmonary disease (COPD), CHF ( congestive heart failure) - Discharge Dispostion Condition at time of disposition: Guarded - Referrals - Patient Instructions - Post Discharge Activity
[2017-05-05] MEDS ORDERED: methylPREDNISolone NA SUCC 125 MG/2 ML VIAL IVPUSH ONE (14:31)
--- NOTE | 2017-05-05 14:32 | PDOC ---
History of Present Illness <Mariama Mazariegos - Last Filed: 05/05/17 16:33> - General History Source: Patient Exam Limitations: No Limitations - History of Present Illness Initial Comments: 05/05/17 18:23 The patient is a 61 year old male, with a significant past medical history of Anemia, CAD s/p stent and CABG x4 (on PLavix and Xarelto), PPM, COPD (on 3 L O2 ), SHELDON, DM, HTN, HLD, CHF who presents to the emergency department with worsening SOB and productive cough (white) for the past week. Patient reports recent URI and was given Amoxicillin with Dr. Link. Patient reports mild relief however his symptoms returned and worsened this week. Today, patient attempted to relieve his SOB by increasing his home O2 from 3L to 4 L with no improvement. Upon arrival, patients vital signs are significant for 80 % O2 saturation and was given duonebs at triage. Patient returned 96 % and presented to the main ED for further evaluation. Note, patient was recently admitted to [facility] for COPD exacerbation on 04/13/2017 and discharged on 04/16/2017. Patient denies chest pain, headache or dizziness. Patient denies fever, chills, abdominal pain, nausea, vomit, diarrhea or constipation. Patient denies dysuria , frequency, urgency or hematuria. Patient denies sick contacts or recent travel. Allergies: NKA Past surgical history: CABG, stent placement, Social history: Former smoker (2008) PCP: Dr. Gen Naidu <Ranulfo Corea - Last Filed: 05/05/17 18:23> - General Chief Complaint: Shortness of Breath Stated Complaint: DIFFICULTY BREATHING Time Seen by Provider: 05/05/17 14:07 Past History <Mariama Mazariegos - Last Filed: 05/05/17 16:33> - Past Medical History Anemia: Yes Cardiac Disorders: Yes (cardiac stent, PACEMAKER-FEBRILLISER, cardiomyopathy, CABG 4) COPD: Yes (3 L o2) CHF: Yes Diabetes: Yes HTN: Yes Hypercholesterolemia: Yes - Surgical History Cardiac Surgery: Yes (cardiac stent x1, CAGB 4, PACEMAKER/DEFIB) Orthopedic Surgery: No - Immunization History Immunization Up to Date: Yes - Suicide/Smoking/Psychosocial Hx Smoking Status: No Smoking History: Former smoker Years of Tobacco Use: 20 Have you smoked in the past 12 months: No Number of Cigarettes Smoked Daily: 0 If you are a former smoker, when did you quit?: 2008 Information on smoking cessation initiated: No 'Breaking Loose' booklet given: 05/30/12 Hx Alcohol Use: No Drug/Substance Use Hx: No Substance Use Type: None Hx Substance Use Treatment: No <Ranulfo Corea - Last Filed: 05/05/17 18:23> - Past Medical History Allergies/Adverse Reactions: Allergies Allergy/AdvReac Type Severity Reaction Status Date / Time No Known Drug Allergies Allergy Verified 05/05/17 14:06 Home Medications: Ambulatory Orders Aspirin [ASA -] 81 mg PO DAILY 07/26/15 Sitagliptin Phos/Metformin HCl [Janumet 50-1,000 mg Tablet] 1 tab PO BID Gabapentin [Neurontin -] 400 mg PO BID capsule 11/14/15 Levothyroxine [Synthroid -] 25 mcg PO DAILY@0700 tablet 11/14/15 Atorvastatin Ca [Lipitor] 20 mg PO DAILY 01/18/16 Glipizide [Glucotrol -] 5 mg PO BID 01/18/16 Losartan Potassium [Cozaar -] 50 mg PO DAILY 01/18/16 Spironolactone [Aldactone -] 25 mg PO DAILY 01/18/16 Furosemide [Lasix -] 40 mg PO DAILY #30 tablet 08/28/16 Carvedilol [Coreg -] 6.25 mg PO BID 03/20/17 Miscellaneous Drug Not In Syst [Outpatient Lab Test] 1 each ASDIR #1 misc Pantoprazole Sodium [Protonix -] 40 mg PO BID #30 tablet.ec 03/25/17 Prednisone 10 mg PO DAILY #30 tablet 04/15/17 Respiratory Specific PMHX - Complaint Specific PMHX Angina: No Pulmonary Embolus: No <Ranulfo Corea - Last Filed: 05/05/17 18:23> Review of Systems - Review of Systems Able to Perform ROS?: Yes Comments:: 05/05/17 18:23 CONSTITUTIONAL: No reported: Fever, Chills, Diaphoresis, Generalized Weakness, Malaise, Loss of Appetite HEENT: No reported: Rhinorrhea, Nasal Congestion, Throat Pain, Throat Swelling, Difficulty Swallowing, Mouth Swelling, Ear Pain, Eye Pain, Visual Changes CARDIOVASCULAR: No reported: Chest Pain, Syncope, Palpitations, Irregular Heart Rate, Lightheadedness, Peripheral Edema RESPIRATORY: +Cough, Shortness of Breath, SOB with Exertion, Orthopnea, No reported: Wheezing, Stridor, Hemoptysis GASTROINTESTINAL: No reported: Abdominal pain, Abdominal Distension, Nausea, Vomiting, Diarrhea, Constipation, Melena, Hematochezia GENITOURINARY: No reported: Dysuria, Frequency, Urgency, Hesitancy, Flank Pain, Genital Pain MUSCULOSKELETAL: No reported: Myalgia, Arthralgia, Joint Swelling, Back pain, Neck Pain SKIN: No reported: Rash, Itching, Pallor HEMATOLOGIC/IMMUNOLOGIC: No reported: Easy Bleeding, Easy Bruising, Lymphadenopathy, Frequent infections ENDOCRINE: No reported: Unexplained Weight Gain, Unexplained Weight Loss, Heat Intolerance , Cold Intolerance NEUROLOGIC: No reported: Headache, Focal Weakness, Paresthesias, Vertigo, Lightheadedness, Unsteady Gait, Seizure, Mental Status Changes, Incontinence PSYCHIATRIC: No reported: Anxiety, Depression <Ranulfo Corea - Last Filed: 05/05/17 18:23> *Physical Exam - Vital Signs Last Vital Signs Temp Pulse Resp BP Pulse Ox 71 26 H 121/70 80 L 05/05/17 14:07 05/05/17 14:07 05/05/17 14:07 05/05/17 14:07 <Mariama Mazariegos - Last Filed: 05/05/17 16:33> - Vital Signs Last Vital Signs Temp Pulse Resp BP Pulse Ox 71 26 H 121/70 80 L 05/05/17 14:07 05/05/17 14:07 05/05/17 14:07 05/05/17 14:07 - Physical Exam Comments: 05/05/17 18:23 GENERAL: The patient is awake, alert, and fully oriented, Nontoxic. +Moderate respiratory distress. HEAD: Normocephalic, atraumatic. EYES: extraocular movements intact, sclera anicteric, conjunctiva clear. ENT: Normal voice, Moist mucous membranes. NECK: Normal range of motion, No JVD LUNGS: Breath sounds equal, clear to auscultation bilaterally. +Scattered wheezing. No rhonchi, no rales. HEART: Regular rate and rhythm, normal S1 and S2 without murmur, rub or gallop. ABDOMEN: Soft, nontender, normoactive bowel sounds. No guarding, no rebound. No masses. No CVA tenderness EXTREMITIES: Normal range of motion, no edema. No clubbing or cyanosis. No cords , erythema, or tenderness. NEUROLOGICAL: No facial asymmetry, Normal speech, normal gait. PSYCH: Normal mood, normal affect. SKIN: Warm, Dry, normal turgor. RECTAL:+ Dark yellow stool <Nahomy,Ranulfo - Last Filed: 05/05/17 18:23> Heart Score/ECG Review - ECG Impressions Comment:: 05/05/17 15:43 Twelve-lead EKG was performed and reviewed by me. Ventricular paced rhythm rate of 70 <Nahomy,Ranulfo - Last Filed: 05/05/17 18:23> ED Treatment Course - LABORATORY CBC & Chemistry Diagram: 05/05/17 14:30 05/05/17 14:30 - ADDITIONAL ORDERS Additional order review: Laboratory Results 05/05/17 05/05/17 05/05/17 14:32 14:30 14:30 PT with INR 25.80 H INR 2.28 H D Sodium 139 Potassium 4.1 Chloride 104 D Carbon Dioxide 26 Anion Gap 9 BUN 27 H Creatinine 1.4 H Creat Clearance w eGFR 51.87 Random Glucose 180 H Calcium 8.2 L Total Bilirubin 1.2 H D AST 13 L ALT 25 Alkaline Phosphatase 79 Creatine Kinase 36 L Troponin I < 0.02 Total Protein 7.3 Albumin 3.6 Stool Occult Blood Negative 05/05/17 14:30 RBC 2.98 L MCV 90.3 MCHC 30.8 L RDW 22.5 H MPV 8.3 Neutrophils % No Result Required. Lymphocytes % No Result Required. - Medications Given in the ED: ED Medications Discontinued Medications Generic Name Dose Route Start Last Admin Trade Name Freq PRN Reason Stop Dose Admin Albuterol/Ipratropium 1 amp 05/05/17 14:11 05/05/17 14:16 Duoneb - NEB 05/05/17 14:12 1 amp ONCE ONE Administration Albuterol/Ipratropium 1 amp 05/05/17 14:31 05/05/17 14:58 Duoneb - NEB 05/05/17 14:32 1 amp ONCE ONE Administration Methylprednisolone Sodium Succinate 125 mg 05/05/17 14:31 05/05/17 14:58 Solu-Medrol - IVPUSH 05/05/17 14:32 125 mg ONCE ONE Administration <Mariama Mazariegos - Last Filed: 05/05/17 16:33> - LABORATORY CBC & Chemistry Diagram: 05/05/17 14:30 05/05/17 14:30 - RADIOLOGY Radiology Studies Ordered: Category Date Time Status CHEST X-RAY PORTABLE* [RAD] Stat Radiology 05/05/17 14:22 Ordered - Medications Given in the ED: ED Medications Discontinued Medications Generic Name Dose Route Start Last Admin Trade Name Freluis PRN Reason Stop Dose Admin Albuterol/Ipratropium 1 amp 05/05/17 14:11 05/05/17 14:16 Duoneb - NEB 05/05/17 14:12 1 amp ONCE ONE Administration <Ranulfo Corea - Last Filed: 05/05/17 18:23> Medical Decision Making - Medical Decision Making 05/05/17 16:00 Dr. Queen paged via phone answering service. Awaiting call back. 05/05/17 16:33 Dr. Queen seen in the ED. Patient's case was discussed. <Mariama Mazariegos - Last Filed: 05/05/17 16:33> - Medical Decision Making 05/05/17 14:33 61y M hx of htn, hl, iddm, copd on 3L home O2, sheldon, cabg s/p aicd, chf, presents with sob x 1 week, incraeased cough productive of whitish sputum, no associated cp, hemoptysis, leg swelling, abd pain, back pain. on exam pt is noted tachepneic, with wheezing b/l, noted hypoxic to 80s in triate. suspect copd exacervaion consider possible pna will ck lbas will start bipap w/ nebs will give steroids anticipate admission PMD dr. Naidu, Pulm Dr. Link A portion of this note was documented by scribe services under my direction. I have reviewed the details of the note, within reason, and agree with the documentation with the following case summary and management plan written by me 05/05/17 15:23 dark yellow stool, non melanotic awaiting stool guaiac 05/05/17 15:41 cxr noted with congestive changes suspect copd with chf will give some lasix dr. link bedisdasher seeing the pt will admit for further management awaiitng call back from hospitalist 05/05/17 16:28 case dw [employer] [place]. agree with admission [facility] dr. herrera service under tele Case discussed in detail with admitting physician including history, physical exam and ancillary studies. Admitting physician has assumed care for the patient, will follow all pending diagnostics and will complete the evaluation and treatment. CRITICAL CARE DOCUMENTATION: I spent ~35 minutes of Critical Care time, excluding separately billable procedures, involving high complexity decision making to assess, manipulate and support vital system function(s) to treat single or multiple vital organ system failure and/or to prevent further life threatening deterioration of the patient' s condition. <Ranulfo Corea - Last Filed: 05/05/17 18:23> *DC/Admit/Observation/Transfer <Mariama Mazariegos - Last Filed: 05/05/17 16:33> - Discharge Dispostion Admit: Yes <Ranulfo Corea - Last Filed: 05/05/17 18:23> Diagnosis at time of Disposition: Acute exacerbation of chronic obstructive pulmonary disease (COPD) CHF (congestive heart failure) Qualifiers: Congestive heart failure type: unspecified congestive heart failure type Congestive heart failure chronicity: acute on chronic Qualified Code(s): I50.9 - Heart failure, unspecified - Discharge Dispostion Condition at time of disposition: Guarded
[2017-05-05 14:38] LABS: HEMATOCRIT 26.9 % (35.4-49); HEMOGLOBIN 8.3 GM/dL (11.7-16.9); MCH 27.8 pg (25.7-33.7); MCHC 30.8 g/dl (32.0-35.9); MEAN CELL VOLUME 90.3 fl (80-96); MEAN PLT VOLUME 8.3 fl (7.5-11.1); PLATELET COUNT 166 K/MM3 (134-434); RBC 2.98 M/mm3 (4.00-5.60); RDW 22.5 % (11.9-15.9); WHITE BLOOD COUNT 5.5 K/mm3 (4.0-10.0)
[2017-05-05 15:00] LABS: INR 2.28 (0.82-1.09); PROTHROMBIN TIME (PATIENT) 25.8 SEC (9.98-11.88)
[2017-05-05 15:03] LABS: ALBUMIN 3.6 g/dl (3.4-5.0); ANION GAP 9 (8-16); BILIRUBIN,TOTAL 1.2 mg/dL (0.2-1.0); BLOOD UREA NITROGEN 27 mg/dL (7-18); CALCIUM 8.2 mg/dL (8.5-10.1); CHLORIDE 104 mmol/L (98-107); CO2 26 mmol/L (21-32); CREATININE 1.4 mg/dL (0.7-1.3); GLUCOSE,RANDOM 180 mg/dL (74-106); POTASSIUM 4.1 mmol/L (3.5-5.1); SGOT/AST 13 U/L (15-37); SGPT/ALT 25 U/L (12-78); SODIUM 139 mmol/L (136-145); TOT PROT 7.3 g/dl (6.4-8.2)
[2017-05-05] MEDS ORDERED: methylPREDNISolone NA SUCC 125 MG/2 ML VIAL ONE (15:04)
[2017-05-05 15:06] LABS: ALK PHOS 79 U/L (45-117)
[2017-05-05 15:13] LABS: ADD RBC MORPHOLOGY YES
--- NOTE | 2017-05-05 15:28 | PN ---
Progress Note (short form) - Note Progress Note: PULMONARY CONSULTATION DICTATED 05/05/17 IMP ACUTE ON CHRONIC HYPOXEMIC RESPIRATORY FAILURE COPD ACUTE ON CHRONIC CHF CARDIOMYOPATHY S/P AICD ASHD S/P CABG,STENT OSAS HTN IDDM HLD ACUTE ON CHRONIC KIDNEY DISEASE ANEMIA AFIB PLAN IV STEROIDS LASIX INHALED BRONCHODILATORS O2 BIPAP AT NIGHT AND PRN FOR INCREASING RESPIRATORY DISTRESS DR ECHEVARRIA Problem List - Problems (1) Acute exacerbation of chronic obstructive pulmonary disease (COPD) Code(s): J44.1 - CHRONIC OBSTRUCTIVE PULMONARY DISEASE W (ACUTE) EXACERBATION (2) Chronic hypoxemic respiratory failure Code(s): J96.11 - CHRONIC RESPIRATORY FAILURE WITH HYPOXIA (3) Atrial fibrillation Code(s): I48.91 - UNSPECIFIED ATRIAL FIBRILLATION (4) Congestive heart failure with left ventricular systolic dysfunction Code(s): I50.20 - UNSPECIFIED SYSTOLIC (CONGESTIVE) HEART FAILURE (5) Diabetes Code(s): E11.9 - TYPE 2 DIABETES MELLITUS WITHOUT COMPLICATIONS (6) HTN (hypertension) Code(s): I10 - ESSENTIAL (PRIMARY) HYPERTENSION Qualifiers: (7) Hyperlipidemia Code(s): E78.5 - HYPERLIPIDEMIA, UNSPECIFIED Qualifiers: (8) Hypothyroid Code(s): E03.9 - HYPOTHYROIDISM, UNSPECIFIED Qualifiers: (9) Morbid obesity Code(s): E66.01 - MORBID (SEVERE) OBESITY DUE TO EXCESS CALORIES (10) Obstructive sleep apnea Code(s): G47.33 - OBSTRUCTIVE SLEEP APNEA (ADULT) (PEDIATRIC) (11) S/P implantation of automatic cardioverter/defibrillator (AICD) Code(s): Z95.810 - PRESENCE OF AUTOMATIC (IMPLANTABLE) CARDIAC DEFIBRILLATOR (12) Acute on chronic respiratory failure with hypoxemia Code(s): J96.21 - ACUTE AND CHRONIC RESPIRATORY FAILURE WITH HYPOXIA (13) Acute on chronic systolic CHF (congestive heart failure) Code(s): I50.23 - ACUTE ON CHRONIC SYSTOLIC (CONGESTIVE) HEART FAILURE
[2017-05-05] MEDS ORDERED: FUROSEMIDE 40 MG/4 ML INJECTABLE VIAL IVPUSH ONE (15:41)
[2017-05-05] MEDS ORDERED: ACETAMINOPHEN 325 MG TABLET (FP) PO PRN (15:56)
[2017-05-05 16:25] LABS: ANISOCYTOSIS 3+; OVALOCYTE 1+; PLATELET ESTIMATE ADEQUATE
--- NOTE | 2017-05-05 16:53 | HP ---
CHIEF COMPLAINT: SOB x3 weeks PCP: Cordelia HISTORY OF PRESENT ILLNESS: This is a 61 yo man with h/o severe systolic CHF--> ICD (followed at [facility] Heart Failure clinic), A-fib, CAD s/p stent placement x 3 , CABG x 1, HTN, HLD, DM, COPD, obesity,severe obstructive sleep apnea, who presents with progressive SOB over 3 weeks. He states he was evaluated here for CAP approximately 2 weeks ago and was treated with IV abx and discharged. He states his SOB slightly improved over that time but became increasingly worse over the past 3-4 days. He states his exercise tolerance has decreased to approximately 1 black and is not able to ascend more than 2-3 stairs. He is unable to walk up inclines. He states he has been "bloated" for the past week. His gave his extra Lasix dose recommended by his psychiatric specialist with 11# weight loss after 1 dose. She did not give him any other doses due to recent AHRMAN. He denies fevers, chills, abdominal pain, constipation, diarrhea, dysuria or weakness. He states his AICD has not fired. ER course was notable for: (1) CXR- mild pulmonary venous congestion (2) Trop- <0.02 (3) INR- 2.28 Recent Travel: denies PAST MEDICAL HISTORY: see HPI PAST SURGICAL HISTORY: see HPI Social History: Smokin pack years- quit in 2008 Alcohol: none since 2008 Drugs: denies Family History: Allergies No Known Drug Allergies Allergy (Verified 05/05/17 14:06) HOME MEDICATIONS: Home Medications Medication Instructions Recorded Aspirin [ASA -] 81 mg PO DAILY 07/26/15 Sitagliptin Phos/Metformin HCl 1 tab PO BID 07/26/15 [Janumet 50-1,000 mg Tablet] Gabapentin [Neurontin -] 400 mg PO BID capsule 11/14/15 Levothyroxine [Synthroid -] 25 mcg PO DAILY@0700 tablet 11/14/15 Atorvastatin Ca [Lipitor] 20 mg PO DAILY 01/18/16 Glipizide [Glucotrol -] 5 mg PO BID 01/18/16 Losartan Potassium [Cozaar -] 50 mg PO DAILY 01/18/16 Spironolactone [Aldactone -] 25 mg PO DAILY 01/18/16 Furosemide [Lasix -] 40 mg PO DAILY #30 tablet 08/28/16 Carvedilol [Coreg -] 6.25 mg PO BID 03/20/17 Miscellaneous Drug Not In Syst 1 each ASDIR #1 misc 03/25/17 [Outpatient Lab Test] Pantoprazole Sodium [Protonix -] 40 mg PO BID #30 tablet.ec 03/25/17 Prednisone 10 mg PO DAILY #30 tablet 04/15/17 REVIEW OF SYSTEMS CONSTITUTIONAL: Absent: fever, chills, diaphoresis, generalized weakness, malaise, loss of appetite, weight change HEENT: Absent: rhinorrhea, nasal congestion, throat pain, throat swelling, difficulty swallowing, mouth swelling, ear pain, eye pain, visual changes CARDIOVASCULAR: Absent: chest pain, syncope, palpitations, irregular heart rate, lightheadedness , peripheral edema RESPIRATORY: Present- shortness of breath, dyspnea with exertion, orthopnea, wheezing Absent: cough, stridor, hemoptysis GASTROINTESTINAL: Present- abdominal bloating Absent: abdominal pain, abdominal distension, nausea, vomiting, diarrhea, constipation, melena, hematochezia GENITOURINARY: Absent: dysuria, frequency, urgency, hesitancy, hematuria, flank pain, genital pain MUSCULOSKELETAL: Absent: myalgia, arthralgia, joint swelling, back pain, neck pain SKIN: Absent: rash, itching, pallor HEMATOLOGIC/IMMUNOLOGIC: Absent: easy bleeding, easy bruising, lymphadenopathy, frequent infections ENDOCRINE: Absent: unexplained weight gain, unexplained weight loss, heat intolerance, cold intolerance NEUROLOGIC: Absent: headache, focal weakness or paresthesias, dizziness, unsteady gait, seizure, mental status changes, bladder or bowel incontinence PSYCHIATRIC: Absent: anxiety, depression, suicidal or homicidal ideation, hallucinations. PHYSICAL EXAMINATION Vital Signs - 24 hr 05/05/17 14:07 Pulse Rate 71 Respiratory 26 H Rate Blood Pressure 121/70 O2 Sat by Pulse 80 L Oximetry (%) GENERAL: Awake, alert, and fully oriented, in no acute distress. HEAD: Normal with no signs of trauma. EYES: Pupils equal, round and reactive to light, extraocular movements intact, sclera anicteric, conjunctiva clear. No lid lag. EARS, NOSE, THROAT: Ears normal, nares patent, oropharynx clear without exudates. Moist mucous membranes. NECK: Normal range of motion, supple without lymphadenopathy, JVD, or masses. LUNGS: Breath sounds equal. Scattered wheezes, and bibasal crackles. No accessory muscle use. Conversational dyspnea. HEART: Regular rate and rhythm, normal S1 and S2 without murmur, rub or gallop. ABDOMEN: Soft, nontender, mildly distended, normoactive bowel sounds, no guarding, no rebound, no masses. No hepatomegaly or splenomegaly. MUSCULOSKELETAL: Normal range of motion at all joints. No bony deformities or tenderness. No CVA tenderness. UPPER EXTREMITIES: 2+ pulses, warm, well-perfused. Pallor present. Clubbing present. No peripheral edema. LOWER EXTREMITIES: 2+ pulses, warm, well-perfused. No calf tenderness. No peripheral edema. NEUROLOGICAL: Cranial nerves II-XII intact. Normal speech. Normal gait. PSYCHIATRIC: Cooperative. Good eye contact. Appropriate mood and affect. SKIN: Warm, dry, normal turgor, no rashes or lesions noted, normal capillary refill. Laboratory Results - last 24 hr 05/05/17 05/05/17 05/05/17 14:30 14:30 14:30 WBC 5.5 D RBC 2.98 L Hgb 8.3 L Hct 26.9 L MCV 90.3 MCH 27.8 MCHC 30.8 L RDW 22.5 H Plt Count 166 D MPV 8.3 Total Counted 100 Neutrophils % No Result Required. Neutrophils % (Manual) 75.0 Band Neutrophils % 1.0 Lymphocytes % No Result Required. Lymphocytes % (Manual) 16.0 D Monocytes % (Manual) 7 Eosinophils % (Manual) 1.0 Hypochromia 1+ Platelet Estimate Adequate Platelet Comment No clumping noted Polychromasia 1+ Anisocytosis 3+ Microcytosis 1+ Ovalocytes 1+ PT with INR 25.80 H INR 2.28 H D Sodium 139 Potassium 4.1 Chloride 104 D Carbon Dioxide 26 Anion Gap 9 BUN 27 H Creatinine 1.4 H Creat Clearance w eGFR 51.87 Random Glucose 180 H Calcium 8.2 L Total Bilirubin 1.2 H D AST 13 L ALT 25 Alkaline Phosphatase 79 Creatine Kinase 36 L Troponin I < 0.02 Total Protein 7.3 Albumin 3.6 Stool Occult Blood 05/05/17 14:32 WBC RBC Hgb Hct MCV MCH MCHC RDW Plt Count MPV Total Counted Neutrophils % Neutrophils % (Manual) Band Neutrophils % Lymphocytes % Lymphocytes % (Manual) Monocytes % (Manual) Eosinophils % (Manual) Hypochromia Platelet Estimate Platelet Comment Polychromasia Anisocytosis Microcytosis Ovalocytes PT with INR INR Sodium Potassium Chloride Carbon Dioxide Anion Gap BUN Creatinine Creat Clearance w eGFR Random Glucose Calcium Total Bilirubin AST ALT Alkaline Phosphatase Creatine Kinase Troponin I Total Protein Albumin Stool Occult Blood Negative RAD/CHEST X-RAY PORTABLE* Shortness of breath Portable chest x-ray, AP sitting Since 04/13/2017, there remains moderate cardiomegaly. Interval increase interstitial lung markings are suggestive of mild pulmonary venous congestion. Superimpose interstitial infiltrates in the lower lobes cannot be ruled out. No pneumothorax or pleural effusion are identified. A left-sided pacer is again seen with a single lead in satisfactory position IMPRESSION: Moderate cardiomegaly with interval mild pulmonary venous congestion. Cannot rule out superimposed interstitial infiltrates in the lower lobes. Follow-up is needed. Reported By: Talia Hernandez MD 05/05/17 1533 ASSESSMENT/PLAN: A: 61 yo man with h/o severe systolic CHF-->ICD (followed at [facility] Heart Failure clinic), A-fib, CAD s/p stent placement x 3, CABG x 1, HTN, HLD, DM, COPD, obesity,severe obstructive sleep apnea, now with A on C CHF. P: CHF - cardiac monitoring - serial troponins - strict I&O's - daily weights - last echo was 03/20/17 -BNP - Lasix po until repeat Cr- if improved switch to IV - Aldactone - cozaar - Cards consult COPD - prednisone 10mg daily - Duonebs - Pulm following NIDDM - fs QACHS - ISS F/E/N - low Na diabetic diet - strict I&O's - trend lytes PPX - OOB - sqh Dispo- requires observation of acute medical conditions Visit type - Emergency Visit Emergency Visit: Yes ED Registration Date: 05/05/17 Care time: The patient presented to the Emergency Department on the above date and was hospitalized for further evaluation of their emergent condition. - New Patient This patient is new to me today: Yes Date on this admission: 05/06/17 - Critical Care Critical Care patient: No
--- NOTE | 2017-05-05 17:12 | CONS ---
DATE OF CONSULTATION: 05/05/2017 PULMONARY CONSULTATION REFERRING PHYSICIAN: Dr. Storey. 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 The patient presented to [facility] this afternoon with complaints of shortness of breath x1 week. The patient states the past week he has increased shortness of breath and dyspnea on exertion, complains of cough productive of while sputum, denies any fever, nausea, vomiting, or diaphoresis. He presented to the emergency room. While in the ER he was noted to be wheezing bilaterally and hypoxic with O2 sats in the 80s initially on room air. He was started on inhaled bronchodilators and steroids with good clinical response. The patient states, "I did not want to go to the hospital earlier this week secondary to [place] holiday. He has history of tobacco use, quit a few years ago. There is no history of occupational exposure to chemicals or fumes. There is no history of recent travel. PAST MEDICAL HISTORY: Again includes cardiomyopathy, arteriosclerotic heart disease, status post CABG, status post AICD, COPD on chronic hypoxic respiratory failure, insulin-dependent diabetes mellitus, hypertension, hyperlipidemia, chronic kidney disease,SHELDON. REVIEW OF SYSTEMS: Positive orthopnea, positive dyspnea, positive cough. No chest pain, no palpitation, no nausea, no vomiting, no abdominal pain. MEDICATIONS PRIOR TO ADMISSION: Include aspirin, Janumet, Neurontin, Synthroid, Lipitor, Glucotrol, Cozaar, Aldactone, Lasix, Coreg and Protonix. PHYSICAL EXAMINATION: General: The patient is an obese, male, awake, alert, dyspneic but in no acute distress. Vitals: He is afebrile. Blood pressure is 121/70, respiratory rate 26, O2 saturation 80% on room air. HEENT: Examination is normocephalic and atraumatic. Neck: Supple. Heart: Irregular with normal S1, S2. Lungs: Bilateral wheezes and crackles bilaterally at the base. Abdomen: Soft, bowel sounds positive. Extremities: No cyanosis or edema. LABORATORY DATA: WBC is 5.5, hemoglobin 8.3, hematocrit 26.9, platelet count 166,000. INR is 2.28. Chemistries, BUN 27, creatinine 1.4. BMP is pending. Chest x-ray revealed cardiomegaly with increased pulmonary vascular congestion bilaterally. IMPRESSION: Acute on chronic hypoxemic respiratory failure secondary to multiple factors. 1. Decompensated congestive heart failure. 2. Chronic obstructive pulmonary disease with acute exacerbation. 3. Arteriosclerotic heart disease status post coronary artery bypass graft. 4. Cardiomyopathy 5. Hypertension. 6. Acute on chronic kidney injury. 7. Hyperlipidemia. 8. Noninsulin-dependent diabetes mellitus. 9. Obstructive sleep apnea on continuous positive airway pressure . PLAN: Lasix, supplemental O2, inhaled bronchodilators, IV steroids, monitor electrolytes, monitor blood sugars, monitor renal function, daily weights, follow up chest x-rays,BiPAP at night and prn for increasing respiratory distress FLOWER ECHEVARRIA M.D. [id number] MTDD
--- NOTE | 2017-05-05 17:50 | CON.CARD ---
Consult Consult Specialty:: cardiology Reason for Consultation:: severe shortness of breath over the past week; hx severe systolic CHF; COPD - History of Present Illness Chief Complaint: A&Ox3; slightly improved dyspnea History of Present Illness: This is a 61 yo white man with h/o severe systolic CHF-->ICD (followed at [facility] Heart Failure clinic; recent Tc99 pyrophosphate study negarive for amyloid), A- fib, CAD s/p stent placement x 3, CABG x 1, HTN, HLD, DM, COPD, obesity,severe obstructive sleep apnea, who presents with progressive SOB over 3 weeks. He states he was evaluated here for CAP approximately 2 weeks ago and was treated with IV abx and discharged. He states his SOB slightly improved over that time but became increasingly worse over the past 3-4 days. He states his exercise tolerance has decreased to approximately 1 black and is not able to ascend more than 2-3 stairs. He is unable to walk up inclines. He states he has been "bloated" for the past week. His gave his extra Lasix dose recommended by his department assistant with 11# weight loss after 1 dose. She did not give him any other doses due to recent HARMAN. He denies fevers, chills, abdominal pain, constipation, diarrhea, dysuria or weakness. He states his AICD has not fired. - History Source History Provided By: Patient, Family Member, Medical Record Limitations to Obtaining History: No Limitations - Past Medical History Cardio/Vascular: Yes: AFIB, CAD, CHF, HTN, Hyperlipdemia Pulmonary: Yes: COPD, Sleep Apnea Renal/: Yes: Renal Inusuff (recent; ?prerenal azotemia) Endocrine: Yes: Diabetes Mellitus - Alcohol/Substance Use Hx Alcohol Use: No - Smoking History Smoking history: Former smoker Have you smoked in the past 12 months: No Aproximately how many cigarettes per day: 0 If you are a former smoker, when did you quit?: 2008 - Social History Usual Living Arrangement: With Spouse Home Medications - Allergies Allergies/Adverse Reactions: Allergies Allergy/AdvReac Type Severity Reaction Status Date / Time No Known Drug Allergies Allergy Verified 05/05/17 14:06 - Home Medications Home Medications: Ambulatory Orders Aspirin [ASA -] 81 mg PO DAILY 07/26/15 Sitagliptin Phos/Metformin HCl [Janumet 50-1,000 mg Tablet] 1 tab PO BID Gabapentin [Neurontin -] 400 mg PO BID capsule 11/14/15 Levothyroxine [Synthroid -] 25 mcg PO DAILY@0700 tablet 11/14/15 Atorvastatin Ca [Lipitor] 20 mg PO DAILY 01/18/16 Losartan Potassium [Cozaar -] 50 mg PO DAILY 01/18/16 Furosemide [Lasix -] 40 mg PO BID 05/06/17 Apixaban [Eliquis -] 5 mg PO BID #60 tablet 05/15/17 Carvedilol [Coreg -] 6.25 mg PO BID #60 tablet 05/15/17 Pantoprazole Sodium [Protonix -] 40 mg PO DAILY #10 tablet.ec 05/15/17 Prednisone [Deltasone -] See Taper PO DAILY #20 tablet 05/15/17 Spironolactone [Aldactone -] 50 mg PO DAILY #30 tablet 05/15/17 Family Disease History - Family Disease History Family History: Denies Review of Systems - Review of Systems Constitutional: reports: Fever, Weakness Eyes: reports: No Symptoms HENT: reports: No Symptoms Neck: reports: No Symptoms Cardiovascular: reports: Shortness of Breath Respiratory: reports: Snoring, SOB Gastrointestinal: reports: No Symptoms Genitourinary: reports: No Symptoms Breasts: reports: No Symptoms Reported Musculoskeletal: reports: Muscle Pain, Muscle Weakness Integumentary: reports: No Symptoms Neurological: reports: Weakness Endocrine: reports: No Symptoms Hematology/Lymphatic: reports: No Symptoms Psychiatric: reports: Anxiety - Risk Factors Known Risk Factors: Yes: Age, Diabetes Mellitus, Gender, Hypercholesterolemia, Hypertension, Physical Inactivity, Other (severe systolic CHF-->ICD) Vital Signs: Vital Signs Temperature Pulse Rate 71 05/05/17 14:07 Respiratory Rate 26 H 05/05/17 14:07 Blood Pressure 121/70 05/05/17 14:07 O2 Sat by Pulse Oximetry (%) 80 L 05/05/17 14:07 Constitutional: Yes: Anxious Eyes: Yes: WNL HENT: Yes: WNL Neck: Yes: WNL Respiratory: Yes: Diminished, Rales, Tachypnea Gastrointestinal: Yes: Soft, Abdomen, Obese Renal/: No: Anuria Heart Sounds: Yes: S1 (varies in intensity), Split S2 Murmur: Yes: Systolic Murmur, Grade 2 Musculoskeletal: Yes: Muscle Weakness Extremities: Yes: Cool Edema: Yes Edema: LLE: 1+, RLE: 1+ Peripheral Pulses WNL: No Peripheral Pulses: 1+ Left Doralis Pedis, 1+ Right Dorsalis Pedis Integumentary: Yes: WNL Neurological: Yes: Alert, Oriented, Weakness Psychiatric: Yes: WNL - Other Data Labs, Other Data: CBC, BMP 05/05/17 14:30 05/05/17 14:30 INR, PTT INR 2.28 (0.82-1.09) H D 05/05/17 14:30 Troponin, BNP 05/05/17 14:30 Troponin I < 0.02 Troponin, BNP 05/05/17 14:30 Troponin I < 0.02 Echo: Report Reviewed (severe systolic LVEF) Ejection Fraction %: LVEF < 40 % Imaging - Results Chest X-ray: Image Reviewed (mild pulmonary congestion; infiltrates bilaterally) EKG: Image Reviewed (ventricular paced rhythm) Problem List - Problems (1) Acute exacerbation of chronic obstructive pulmonary disease (COPD) Assessment/Plan: .bronchodilators, O2 per water plant pump operator. Pulmonary clinic as outpatient. Code(s): J44.1 - CHRONIC OBSTRUCTIVE PULMONARY DISEASE W (ACUTE) EXACERBATION (2) Acute on chronic systolic CHF (congestive heart failure) Assessment/Plan: Continue carvedilol, losartan, spironolactone, furosemde IV. F/u Is and Os, daily weight, electrolytes, BUN/Cr. Code(s): I50.23 - ACUTE ON CHRONIC SYSTOLIC (CONGESTIVE) HEART FAILURE (3) Renal insufficiency Code(s): N28.9 - DISORDER OF KIDNEY AND URETER, UNSPECIFIED (4) Atrial fibrillation Assessment/Plan: On carvedilolol for HR and CHF. On apixaban for anticoagulation. Code(s): I48.91 - UNSPECIFIED ATRIAL FIBRILLATION (5) Diabetes Assessment/Plan: Consder starting Jardience. Code(s): E11.9 - TYPE 2 DIABETES MELLITUS WITHOUT COMPLICATIONS (6) HTN (hypertension) Code(s): I10 - ESSENTIAL (PRIMARY) HYPERTENSION Qualifiers: (7) Hyperlipidemia Assessment/Plan: on Lipitor; f/u lipid level. Code(s): E78.5 - HYPERLIPIDEMIA, UNSPECIFIED Qualifiers: (8) Hypothyroid Code(s): E03.9 - HYPOTHYROIDISM, UNSPECIFIED Qualifiers: (9) Morbid obesity Code(s): E66.01 - MORBID (SEVERE) OBESITY DUE TO EXCESS CALORIES (10) Obstructive sleep apnea Code(s): G47.33 - OBSTRUCTIVE SLEEP APNEA (ADULT) (PEDIATRIC) (11) S/P implantation of automatic cardioverter/defibrillator (AICD) Code(s): Z95.810 - PRESENCE OF AUTOMATIC (IMPLANTABLE) CARDIAC DEFIBRILLATOR
[2017-05-05 22:55] LABS: N-TERMINAL BNP 2523.71 pg/ml (5-125)
[2017-05-05] MEDS ORDERED: methylPREDNISolone NA SUCC 40 MG/1 ML VIAL ONE (23:32)
[2017-05-05] MEDS: methylPREDNISolone NA SUCC 40 MG/1 ML VIAL IVPUSH SCH (23:42)
[2017-05-05] MEDS: PANTOPRAZOLE 40 MG TABLET (FP) PO SCH (23:42)
[2017-05-05] MEDS: CARVEDILOL 6.25 MG TABLET (FP) PO SCH (23:42)
[2017-05-05] MEDS: GABAPENTIN 400 MG CAPSULE (FP) PO SCH (23:42)
[2017-05-06] MEDS: ALBUTEROL SO4 2.5/IPRATROPIUM 0.5 INH SOL 3 ML VIAL.NEB. NEB SCH ×4 (00:15→17:56)
[2017-05-06] MEDS: methylPREDNISolone NA SUCC 40 MG/1 ML VIAL IVPUSH SCH ×4 (04:28→21:37)
[2017-05-06] MEDS ORDERED: methylPREDNISolone NA SUCC 40 MG/1 ML VIAL ONE (05:12)
[2017-05-06 08:00] LABS: ANION GAP 7 (8-16); BLOOD UREA NITROGEN 26 mg/dL (7-18); CALCIUM 8.5 mg/dL (8.5-10.1); CHLORIDE 101 mmol/L (98-107); CO2 28 mmol/L (21-32); CREATININE 1.1 mg/dL (0.7-1.3); GLUCOSE,RANDOM 188 mg/dL (74-106); POTASSIUM 4.5 mmol/L (3.5-5.1); SODIUM 136 mmol/L (136-145)
[2017-05-06 08:01] LABS: N-TERMINAL BNP 2572.33 pg/ml (5-125)
[2017-05-06 08:33] LABS: HEMATOCRIT 25.3 % (35.4-49); HEMOGLOBIN 7.8 GM/dL (11.7-16.9); MCH 27.8 pg (25.7-33.7); MCHC 30.7 g/dl (32.0-35.9); MEAN CELL VOLUME 90.8 fl (80-96); PLATELET COUNT 161 K/MM3 (134-434); RBC 2.79 M/mm3 (4.00-5.60); RDW 22.8 % (11.9-15.9); WHITE BLOOD COUNT 3.6 K/mm3 (4.0-10.0)
[2017-05-06 08:46] LABS: ADD RBC MORPHOLOGY YES
--- NOTE | 2017-05-06 09:31 | PN ---
Physical Exam: SUBJECTIVE: Patient seen and examined OBJECTIVE: Vital Signs Period Temp Pulse Resp BP Sys/Villalobos Pulse Ox Last 24 Hr 98.6 F 70-72 16-26 121-135/65-86 80-99 GENERAL: Awake, alert, and fully oriented, in no acute distress. HEAD: Normal with no signs of trauma. EYES: Pupils equal, round and reactive to light, extraocular movements intact, sclera anicteric, conjunctiva clear. No lid lag. EARS, NOSE, THROAT: Ears normal, nares patent, oropharynx clear without exudates. Moist mucous membranes. NECK: Normal range of motion, supple without lymphadenopathy, JVD, or masses. LUNGS: Breath sounds equal. Scattered wheezes, and bibasal crackles. No accessory muscle use. Conversational dyspnea. HEART: Regular rate and rhythm, normal S1 and S2 without murmur, rub or gallop. ABDOMEN: Soft, nontender, mildly distended, normoactive bowel sounds, no guarding, no rebound, no masses. No hepatomegaly or splenomegaly. MUSCULOSKELETAL: Normal range of motion at all joints. No bony deformities or tenderness. No CVA tenderness. UPPER EXTREMITIES: 2+ pulses, warm, well-perfused. Pallor present. Clubbing present. No peripheral edema. LOWER EXTREMITIES: 2+ pulses, warm, well-perfused. No calf tenderness. 2+ peripheral edema. NEUROLOGICAL: Cranial nerves II-XII intact. Normal speech. Normal gait. PSYCHIATRIC: Cooperative. Good eye contact. Appropriate mood and affect. SKIN: Warm, dry, normal turgor, no rashes or lesions noted, normal capillary refill. Laboratory Results - last 24 hr 05/05/17 05/05/17 05/05/17 14:30 14:30 14:30 WBC 5.5 D RBC 2.98 L Hgb 8.3 L Hct 26.9 L MCV 90.3 MCH 27.8 MCHC 30.8 L RDW 22.5 H Plt Count 166 D MPV 8.3 Total Counted 100 Neutrophils % No Result Required. Neutrophils % (Manual) 75.0 Band Neutrophils % 1.0 Lymphocytes % No Result Required. Lymphocytes % (Manual) 16.0 D Monocytes % (Manual) 7 Eosinophils % (Manual) 1.0 Hypochromia 1+ Platelet Estimate Adequate Platelet Comment No clumping noted Polychromasia 1+ Anisocytosis 3+ Microcytosis 1+ Ovalocytes 1+ PT with INR 25.80 H INR 2.28 H D Sodium 139 Potassium 4.1 Chloride 104 D Carbon Dioxide 26 Anion Gap 9 BUN 27 H Creatinine 1.4 H Creat Clearance w eGFR 51.87 Random Glucose 180 H Calcium 8.2 L Total Bilirubin 1.2 H D AST 13 L ALT 25 Alkaline Phosphatase 79 Creatine Kinase 36 L Troponin I < 0.02 B-Natriuretic Peptide 2523.71 H Total Protein 7.3 Albumin 3.6 Stool Occult Blood 05/05/17 05/05/17 05/06/17 14:32 23:45 06:30 WBC 3.6 L D RBC 2.79 L Hgb 7.8 L Hct 25.3 L MCV 90.8 MCH 27.8 MCHC 30.7 L RDW 22.8 H Plt Count 161 MPV 9.0 Total Counted Neutrophils % No Result Required. Neutrophils % (Manual) Band Neutrophils % Lymphocytes % No Result Required. Lymphocytes % (Manual) Monocytes % (Manual) Eosinophils % (Manual) Hypochromia Platelet Estimate Platelet Comment Polychromasia Anisocytosis Microcytosis Ovalocytes PT with INR INR Sodium Potassium Chloride Carbon Dioxide Anion Gap BUN Creatinine Creat Clearance w eGFR Random Glucose Calcium Total Bilirubin AST ALT Alkaline Phosphatase Creatine Kinase Troponin I < 0.02 B-Natriuretic Peptide Total Protein Albumin Stool Occult Blood Negative 05/06/17 05/06/17 06:30 06:30 WBC RBC Hgb Hct MCV MCH MCHC RDW Plt Count MPV Total Counted Neutrophils % Neutrophils % (Manual) Band Neutrophils % Lymphocytes % Lymphocytes % (Manual) Monocytes % (Manual) Eosinophils % (Manual) Hypochromia Platelet Estimate Platelet Comment Polychromasia Anisocytosis Microcytosis Ovalocytes PT with INR INR Sodium 136 Potassium 4.5 Chloride 101 Carbon Dioxide 28 Anion Gap 7 L BUN 26 H Creatinine 1.1 D Creat Clearance w eGFR Random Glucose 188 H Calcium 8.5 Total Bilirubin AST ALT Alkaline Phosphatase Creatine Kinase 32 L Troponin I < 0.02 B-Natriuretic Peptide 2572.33 H Total Protein Albumin Stool Occult Blood Active Medications Generic Name Dose Route Start Last Admin Trade Name Freq PRN Reason Stop Dose Admin Acetaminophen 650 mg 05/05/17 15:56 Tylenol - PO Q4H PRN FEVER OR PAIN Albuterol/Ipratropium 1 amp 05/06/17 00:00 05/06/17 00:15 Duoneb - NEB 1 amp QIDR JOSE Administration Aspirin 81 mg 05/06/17 10:00 Asa - PO DAILY [facility] Atorvastatin Calcium 20 mg 05/06/17 22:00 Lipitor - PO HS [facility] Carvedilol 6.25 mg 05/05/17 22:00 05/05/17 23:42 Coreg - PO 6.25 mg BID JOSE Administration Furosemide 40 mg 05/06/17 10:00 Lasix Injection - IVPUSH DAILY [facility] Gabapentin 400 mg 05/05/17 22:00 05/05/17 23:42 Neurontin - PO 400 mg BID JOSE Administration Insulin Aspart 1 vial 05/05/17 22:00 05/06/17 00:00 Novolog Vial Sliding Scale - SQ Not Given ACHS [facility] Protocol Levothyroxine Sodium 25 mcg 05/06/17 07:00 Synthroid - PO DAILY@0700 [facility] Losartan Potassium 50 mg 05/06/17 10:00 Cozaar - PO DAILY [facility] Methylprednisolone Sodium Succinate 40 mg 05/05/17 21:00 05/06/17 04:28 Solu-Medrol - IVPUSH 40 mg Q6H-IV JOSE Administration Pantoprazole Sodium 40 mg 05/05/17 22:00 05/05/17 23:42 Protonix - PO 40 mg BID JOSE Administration Spironolactone 25 mg 05/06/17 10:00 Aldactone - PO DAILY [facility] ASSESSMENT/PLAN: A: 61 yo man with h/o severe systolic CHF-->ICD (followed at [facility] Heart Failure clinic), A-fib, CAD s/p stent placement x 3, CABG x 1, HTN, HLD, DM, COPD, obesity,severe obstructive sleep apnea, now with A on C CHF. P: CHF - cardiac monitoring - troponins (-) x3 - strict I&O's - daily weights - echo on 03/20/17- Severe left global hypokinesia. LV- severe systolic dysfunction. RV- mildly reduced function with increased pressure. Mild->mod MR. -BNP elevated from baseline - Lasix changed to IV after improved renal function - Aldactone - cozaar - Cards following COPD - prednisone 10mg daily - Duonebs - Pulm following NIDDM - fs QACHS - ISS F/E/N - low Na diabetic diet - strict I&O's - trend lytes PPX - OOB - sqh Dispo- requires observation of acute medical conditions Visit type - Emergency Visit Emergency Visit: Yes ED Registration Date: 05/05/17 Care time: The patient presented to the Emergency Department on the above date and was hospitalized for further evaluation of their emergent condition. - New Patient This patient is new to me today: No - Critical Care Critical Care patient: No
[2017-05-06] MEDS ORDERED: predniSONE 10 MG TABLET (UD) PO SCH ×2 (10:00)
[2017-05-06] MEDS ORDERED: FUROSEMIDE 40 MG TABLET (FP) PO SCH (10:00)
[2017-05-06] MEDS: CARVEDILOL 6.25 MG TABLET (FP) PO SCH ×2 (10:12→21:41)
[2017-05-06] MEDS: LEVOTHYROXINE NA 25 MCG TABLET (FP) PO SCH (10:13)
[2017-05-06] MEDS: GABAPENTIN 400 MG CAPSULE (FP) PO SCH ×2 (10:13→21:42)
[2017-05-06] MEDS: LOSARTAN POTASSIUM 50 MG TABLET (FP) PO SCH (10:19)
[2017-05-06] MEDS: PANTOPRAZOLE 40 MG TABLET (FP) PO SCH ×2 (10:19→21:42)
[2017-05-06] MEDS: SPIRONOLACTONE 25 MG TABLET (FP) PO SCH (10:19)
[2017-05-06] MEDS: ASPIRIN 81 MG CHEWABLE TABLETS PO SCH (10:19)
[2017-05-06] MEDS: FUROSEMIDE 40 MG/4 ML INJECTABLE VIAL IVPUSH SCH (10:20)
[2017-05-06] MEDS ORDERED: INSULIN REGULAR HUMAN 100 UNITS/ML *VIAL ONE (11:16)
[2017-05-06] MEDS: INSULIN SLIDING SCALE (NOVOLOG) 1 VIAL SQ SCH ×4 (11:19→21:41)
--- NOTE | 2017-05-06 12:27 | PN ---
Progress Note, Physician History of Present Illness: This is a 61 yo white man with h/o severe systolic CHF-->ICD (followed at [facility] Heart Failure clinic; recent Tc99 pyrophosphate study negarive for amyloid), A- fib, CAD s/p stent placement x 3, CABG x 1, HTN, HLD, DM, COPD, obesity,severe obstructive sleep apnea, who presents with progressive SOB over 3 weeks. He states he was evaluated here for CAP approximately 2 weeks ago and was treated with IV abx and discharged. He states his SOB slightly improved over that time but became increasingly worse over the past 3-4 days. He states his exercise tolerance has decreased to approximately 1 black and is not able to ascend more than 2-3 stairs. He is unable to walk up inclines. He states he has been "bloated" for the past week. His gave his extra Lasix dose recommended by his medical diagnostic radiographer with 11# weight loss after 1 dose. She did not give him any other doses due to recent HARMAN. He denies fevers, chills, abdominal pain, constipation, diarrhea, dysuria or weakness. He states his AICD has not fired. - Current Medication List Current Medications: Active Medications Acetaminophen (Tylenol -) 650 mg PO Q4H PRN PRN Reason: FEVER OR PAIN Albuterol/Ipratropium (Duoneb -) 1 amp NEB QIDR [facility] Last Admin: 05/06/17 10:18 Dose: 1 amp Aspirin (Asa -) 81 mg PO DAILY [facility] Last Admin: 05/06/17 10:19 Dose: 81 mg Atorvastatin Calcium (Lipitor -) 20 mg PO [facility] Carvedilol (Coreg -) 6.25 mg PO BID [facility] Last Admin: 05/06/17 10:12 Dose: 6.25 mg Furosemide (Lasix Injection -) 40 mg IVPUSH DAILY [facility] Last Admin: 05/06/17 10:20 Dose: 40 mg Gabapentin (Neurontin -) 400 mg PO BID [facility] Last Admin: 05/06/17 10:13 Dose: 400 mg Insulin Aspart (Novolog Vial Sliding Scale -) 1 vial SQ ACHS [facility] PRN Reason: Protocol Last Admin: 05/06/17 11:19 Dose: 10 units Levothyroxine Sodium (Synthroid -) 25 mcg PO DAILY@0700 [facility] Last Admin: 12/27/17 10:13 Dose: 25 mcg Losartan Potassium (Cozaar -) 50 mg PO DAILY [facility] Last Admin: 05/06/17 10:19 Dose: 50 mg Methylprednisolone Sodium Succinate (Solu-Medrol -) 40 mg IVPUSH Q6H-IV [facility] Last Admin: 05/06/17 10:18 Dose: 40 mg Pantoprazole Sodium (Protonix -) 40 mg PO BID [facility] Last Admin: 05/06/17 10:19 Dose: 40 mg Spironolactone (Aldactone -) 25 mg PO DAILY [facility] Last Admin: 05/06/17 10:19 Dose: 25 mg - Objective Vital Signs: Vital Signs Temperature 98.7 F 05/06/17 11:03 Pulse Rate 73 05/06/17 11:03 Respiratory Rate 28 H 05/06/17 11:03 Blood Pressure 135/75 05/06/17 11:03 O2 Sat by Pulse Oximetry (%) 89 L 05/06/17 11:03 Eyes: Yes: WNL, Conjunctiva Clear, EOM Intact HENT: Yes: WNL, Atraumatic, Normocephalic Neck: Yes: WNL, Supple, Trachea Midline Cardiovascular: Yes: WNL, Regular Rate and Rhythm Respiratory: Yes: WNL, Regular, CTA Bilaterally Gastrointestinal: Yes: WNL, Normal Bowel Sounds Genitourinary: Yes: WNL Musculoskeletal: Yes: WNL Extremities: Yes: WNL Edema: Yes Integumentary: Yes: WNL Neurological: Yes: WNL, Alert, Oriented ...Motor Strength: WNL Psychiatric: Yes: WNL Labs: CBC, BMP 05/06/17 06:30 05/06/17 06:30 INR, PTT INR 2.28 (0.82-1.09) H D 05/05/17 14:30 Assessment/Plan - Problems (1) Acute exacerbation of chronic obstructive pulmonary disease (COPD) Code(s): J44.1 - CHRONIC OBSTRUCTIVE PULMONARY DISEASE W (ACUTE) EXACERBATION (2) Acute on chronic systolic CHF (congestive heart failure) Code(s): I50.23 - ACUTE ON CHRONIC SYSTOLIC (CONGESTIVE) HEART FAILURE improving with IV lasix cr improcing with diuresis (3) Renal insufficiency Code(s): N28.9 - DISORDER OF KIDNEY AND URETER, UNSPECIFIED improving with diuresis (4) Atrial fibrillation Code(s): I48.91 - UNSPECIFIED ATRIAL FIBRILLATION (5) Diabetes Code(s): E11.9 - TYPE 2 DIABETES MELLITUS WITHOUT COMPLICATIONS stable cont present rx (6) HTN (hypertension) Code(s): I10 - ESSENTIAL (PRIMARY) HYPERTENSION Qualifiers: (7) Hyperlipidemia Code(s): E78.5 - HYPERLIPIDEMIA, UNSPECIFIED Qualifiers: (8) Hypothyroid Code(s): E03.9 - HYPOTHYROIDISM, UNSPECIFIED Qualifiers: (9) Morbid obesity Code(s): E66.01 - MORBID (SEVERE) OBESITY DUE TO EXCESS CALORIES (10) Obstructive sleep apnea Code(s): G47.33 - OBSTRUCTIVE SLEEP APNEA (ADULT) (PEDIATRIC) cont prednisone (11) S/P implantation of automatic cardioverter/defibrillator (AICD) Code(s): Z95.810 - PRESENCE OF AUTOMATIC (IMPLANTABLE) CARDIAC DEFIBRILLATOR
--- NOTE | 2017-05-06 13:06 | EKG ---
Test Reason : Blood Pressure : / mmHG Vent. Rate : 070 BPM Atrial Rate : 288 BPM P-R Int : 000 ms QRS Dur : 230 ms QT Int : 498 ms P-R-T Axes : 000 -77 099 degrees QTc Int : 537 ms Ventricular-paced rhythm ABNORMAL ECG WHEN COMPARED WITH ECG OF 13-APR-2017 07:36, NO SIGNIFICANT CHANGE WAS FOUND Confirmed by WILBER MARIEE MD ([id number]) on 05/06/2017 1:06:12 PM Referred By: Confirmed By:WILBER MARIEE MD
[2017-05-06] MEDS ORDERED: ALBUTEROL SO4 2.5/IPRATROPIUM 0.5 INH SOL 3 ML VIAL.NEB. NEB ONE (13:26)
--- NOTE | 2017-05-06 14:15 | PN ---
Progress Note, Physician History of Present Illness: pulmonary alert,less dyspneic,-cp,+cough - Current Medication List Current Medications: Active Medications Acetaminophen (Tylenol -) 650 mg PO Q4H PRN PRN Reason: FEVER OR PAIN Albuterol/Ipratropium (Duoneb -) 1 amp NEB QIDR [facility] Last Admin: 05/06/17 10:18 Dose: 1 amp Aspirin (Asa -) 81 mg PO DAILY [facility] Last Admin: 05/06/17 10:19 Dose: 81 mg Atorvastatin Calcium (Lipitor -) 20 mg PO HS [facility] Carvedilol (Coreg -) 6.25 mg PO BID [facility] Last Admin: 05/06/17 10:12 Dose: 6.25 mg Furosemide (Lasix Injection -) 40 mg IVPUSH DAILY [facility] Last Admin: 05/06/17 10:20 Dose: 40 mg Gabapentin (Neurontin -) 400 mg PO BID [facility] Last Admin: 05/06/17 10:13 Dose: 400 mg Insulin Aspart (Novolog Vial Sliding Scale -) 1 vial SQ ACHS [facility] PRN Reason: Protocol Last Admin: 05/06/17 11:19 Dose: 10 units Levothyroxine Sodium (Synthroid -) 25 mcg PO DAILY@0700 [facility] Last Admin: 05/06/17 10:13 Dose: 25 mcg Losartan Potassium (Cozaar -) 50 mg PO DAILY [facility] Last Admin: 05/06/17 10:19 Dose: 50 mg Methylprednisolone Sodium Succinate (Solu-Medrol -) 40 mg IVPUSH Q6H-IV [facility] Last Admin: 05/06/17 10:18 Dose: 40 mg Pantoprazole Sodium (Protonix -) 40 mg PO BID [facility] Last Admin: 05/06/17 10:19 Dose: 40 mg Spironolactone (Aldactone -) 25 mg PO DAILY [facility] Last Admin: 05/06/17 10:19 Dose: 25 mg - Objective Vital Signs: Vital Signs Temperature 98.9 F 05/06/17 12:27 Pulse Rate 70 05/06/17 12:27 Respiratory Rate 26 H 05/06/17 12:27 Blood Pressure 110/73 05/06/17 12:27 O2 Sat by Pulse Oximetry (%) 93 L 05/06/17 12:27 Constitutional: Yes: Calm, Obese Eyes: Yes: WNL HENT: Yes: WNL Neck: Yes: WNL Cardiovascular: Yes: Pulse Irregular, S1, S2 Respiratory: Yes: Rales (bibasilar crackles,scattered des wheezes) Gastrointestinal: Yes: Normal Bowel Sounds, Soft Extremities: Yes: WNL Edema: Yes Edema: LLE: Trace, RLE: Trace Labs: CBC, BMP 05/06/17 06:30 05/06/17 06:30 INR, PTT INR 2.28 (0.82-1.09) H D 05/05/17 14:30 Problem List - Problems (1) Acute exacerbation of chronic obstructive pulmonary disease (COPD) Code(s): J44.1 - CHRONIC OBSTRUCTIVE PULMONARY DISEASE W (ACUTE) EXACERBATION (2) Chronic hypoxemic respiratory failure Code(s): J96.11 - CHRONIC RESPIRATORY FAILURE WITH HYPOXIA (3) Atrial fibrillation Code(s): I48.91 - UNSPECIFIED ATRIAL FIBRILLATION (4) Congestive heart failure with left ventricular systolic dysfunction Code(s): I50.20 - UNSPECIFIED SYSTOLIC (CONGESTIVE) HEART FAILURE (5) Diabetes Code(s): E11.9 - TYPE 2 DIABETES MELLITUS WITHOUT COMPLICATIONS (6) HTN (hypertension) Code(s): I10 - ESSENTIAL (PRIMARY) HYPERTENSION Qualifiers: (7) Hyperlipidemia Code(s): E78.5 - HYPERLIPIDEMIA, UNSPECIFIED Qualifiers: (8) Hypothyroid Code(s): E03.9 - HYPOTHYROIDISM, UNSPECIFIED Qualifiers: (9) Morbid obesity Code(s): E66.01 - MORBID (SEVERE) OBESITY DUE TO EXCESS CALORIES (10) Obstructive sleep apnea Code(s): G47.33 - OBSTRUCTIVE SLEEP APNEA (ADULT) (PEDIATRIC) (11) S/P implantation of automatic cardioverter/defibrillator (AICD) Code(s): Z95.810 - PRESENCE OF AUTOMATIC (IMPLANTABLE) CARDIAC DEFIBRILLATOR (12) Acute on chronic respiratory failure with hypoxemia Code(s): J96.21 - ACUTE AND CHRONIC RESPIRATORY FAILURE WITH HYPOXIA (13) Acute on chronic systolic CHF (congestive heart failure) Code(s): I50.23 - ACUTE ON CHRONIC SYSTOLIC (CONGESTIVE) HEART FAILURE Assessment/Plan IMP ACUTE ON CHRONIC HYPOXEMIC RESPIRATORY FAILURE COPD ACUTE ON CHRONIC CHF CARDIOMYOPATHY S/P AICD ASHD S/P CABG,STENT OSAS HTN IDDM HLD ACUTE ON CHRONIC KIDNEY DISEASE ANEMIA AFIB PLAN CONTINUE IV STEROIDS IV LASIX INHALED BRONCHODILATORS O2 BIPAP AT NIGHT AND PRN FOR INCREASING RESPIRATORY DISTRESS DR ECHEVARRIA Problem List - Problems (1) Acute exacerbation of chronic obstructive pulmonary disease (COPD) Code(s): J44.1 - CHRONIC OBSTRUCTIVE PULMONARY DISEASE W (ACUTE) EXACERBATION (2) Chronic hypoxemic respiratory failure Code(s): J96.11 - CHRONIC RESPIRATORY FAILURE WITH HYPOXIA (3) Atrial fibrillation Code(s): I48.91 - UNSPECIFIED ATRIAL FIBRILLATION (4) Congestive heart failure with left ventricular systolic dysfunction Code(s): I50.20 - UNSPECIFIED SYSTOLIC (CONGESTIVE) HEART FAILURE (5) Diabetes Code(s): E11.9 - TYPE 2 DIABETES MELLITUS WITHOUT COMPLICATIONS (6) HTN (hypertension) Code(s): I10 - ESSENTIAL (PRIMARY) HYPERTENSION Qualifiers: (7) Hyperlipidemia Code(s): E78.5 - HYPERLIPIDEMIA, UNSPECIFIED Qualifiers: (8) Hypothyroid Code(s): E03.9 - HYPOTHYROIDISM, UNSPECIFIED Qualifiers: (9) Morbid obesity Code(s): E66.01 - MORBID (SEVERE) OBESITY DUE TO EXCESS CALORIES (10) Obstructive sleep apnea Code(s): G47.33 - OBSTRUCTIVE SLEEP APNEA (ADULT) (PEDIATRIC) (11) S/P implantation of automatic cardioverter/defibrillator (AICD) Code(s): Z95.810 - PRESENCE OF AUTOMATIC (IMPLANTABLE) CARDIAC DEFIBRILLATOR (12) Acute on chronic respiratory failure with hypoxemia Code(s): J96.21 - ACUTE AND CHRONIC RESPIRATORY FAILURE WITH HYPOXIA (13) Acute on chronic systolic CHF (congestive heart failure) Code(s): I50.23 - ACUTE ON CHRONIC SYSTOLIC (CONGESTIVE) HEART FAILURE
[2017-05-06 14:23] LABS: ANISOCYTOSIS 2+; MACROCYTOSIS 0; PLATELET ESTIMATE NORMAL; TARGET CELLS 1+
[2017-05-06] MEDS ORDERED: INSULIN (NOVOLOG) ASPART 100 UNITS/ML 10ML VIAL ONE (16:22)
[2017-05-06] MEDS: ATORVASTATIN CA 20 MG TABLET (FP) PO SCH (21:42)
[2017-05-07] MEDS: methylPREDNISolone NA SUCC 40 MG/1 ML VIAL IVPUSH SCH ×4 (02:42→21:26)
[2017-05-07] MEDS: ALBUTEROL SO4 2.5/IPRATROPIUM 0.5 INH SOL 3 ML VIAL.NEB. NEB SCH ×5 (05:43→23:36)
[2017-05-07] MEDS: LEVOTHYROXINE NA 25 MCG TABLET (FP) PO SCH (06:25)
[2017-05-07] MEDS: INSULIN SLIDING SCALE (NOVOLOG) 1 VIAL SQ SCH ×6 (06:25→21:35)
[2017-05-07 06:29] LABS: HEMATOCRIT 24.7 % (35.4-49); HEMOGLOBIN 7.8 GM/dL (11.7-16.9); MCH 28.7 pg (25.7-33.7); MCHC 31.7 g/dl (32.0-35.9); MEAN CELL VOLUME 90.5 fl (80-96); MEAN PLT VOLUME 9.2 fl (7.5-11.1); PLATELET COUNT 186 K/MM3 (134-434); RBC 2.73 M/mm3 (4.00-5.60); RDW 22.4 % (11.9-15.9)
[2017-05-07 06:50] LABS: ADD RBC MORPHOLOGY YES
[2017-05-07 07:16] LABS: ANION GAP 8 (8-16); BLOOD UREA NITROGEN 36 mg/dL (7-18); CALCIUM 9.3 mg/dL (8.5-10.1); CHLORIDE 101 mmol/L (98-107); CO2 28 mmol/L (21-32); CREATININE 1.1 mg/dL (0.7-1.3); GLUCOSE,RANDOM 198 mg/dL (74-106); POTASSIUM 4.5 mmol/L (3.5-5.1); SODIUM 137 mmol/L (136-145)
--- NOTE | 2017-05-07 10:01 | PN ---
Progress Note, Physician Chief Complaint: Pt OOB in chair' feels better (less dyspneic). History of Present Illness: This is a 61 yo white man with h/o severe systolic CHF-->ICD (followed at [facility] Heart Failure clinic; recent Tc99 pyrophosphate study negarive for amyloid), A- fib, CAD s/p stent placement x 3, CABG x 1, HTN, HLD, DM, COPD, obesity,severe obstructive sleep apnea, who presents with progressive SOB over 3 weeks. He states he was evaluated here for CAP approximately 2 weeks ago and was treated with IV abx and discharged. He states his SOB slightly improved over that time but became increasingly worse over the past 3-4 days. He states his exercise tolerance has decreased to approximately 1 black and is not able to ascend more than 2-3 stairs. He is unable to walk up inclines. He states he has been "bloated" for the past week. His gave his extra Lasix dose recommended by his corrugator helper with 11# weight loss after 1 dose. She did not give him any other doses due to recent HARMAN. He denies fevers, chills, abdominal pain, constipation, diarrhea, dysuria or weakness. He states his AICD has not fired. - Current Medication List Current Medications: Active Medications Acetaminophen (Tylenol -) 650 mg PO Q4H PRN PRN Reason: FEVER OR PAIN Albuterol/Ipratropium (Duoneb -) 1 amp NEB QIDR [facility] Last Admin: 05/07/17 05:43 Dose: 1 amp Aspirin (Asa -) 81 mg PO DAILY [facility] Last Admin: 05/06/17 10:19 Dose: 81 mg Atorvastatin Calcium (Lipitor -) 20 mg PO HS [facility] Last Admin: 05/06/17 21:42 Dose: 20 mg Carvedilol (Coreg -) 6.25 mg PO BID [facility] Last Admin: 05/06/17 21:41 Dose: 6.25 mg Furosemide (Lasix Injection -) 40 mg IVPUSH DAILY [facility] Last Admin: 05/06/17 10:20 Dose: 40 mg Gabapentin (Neurontin -) 400 mg PO BID [facility] Last Admin: 05/06/17 21:42 Dose: 400 mg Insulin Aspart (Novolog Vial Sliding Scale -) 1 vial SQ ACHS [facility] PRN Reason: Protocol Last Admin: 05/07/17 06:25 Dose: 4 units Levothyroxine Sodium (Synthroid -) 25 mcg PO DAILY@0700 [facility] Last Admin: 05/07/17 06:25 Dose: 25 mcg Losartan Potassium (Cozaar -) 50 mg PO DAILY [facility] Last Admin: 05/06/17 10:19 Dose: 50 mg Methylprednisolone Sodium Succinate (Solu-Medrol -) 40 mg IVPUSH Q6H-IV [facility] Last Admin: 05/07/17 02:42 Dose: 40 mg Pantoprazole Sodium (Protonix -) 40 mg PO BID [facility] Last Admin: 05/06/17 21:42 Dose: 40 mg Spironolactone (Aldactone -) 25 mg PO DAILY [facility] Last Admin: 05/06/17 10:19 Dose: 25 mg - Objective Vital Signs: Vital Signs Temperature 97.8 F 05/07/17 06:00 Pulse Rate 70 05/07/17 06:00 Respiratory Rate 20 05/07/17 06:00 Blood Pressure 111/72 05/07/17 06:00 O2 Sat by Pulse Oximetry (%) 91 L 05/07/17 08:47 Constitutional: Yes: Calm Eyes: Yes: WNL HENT: Yes: WNL Neck: Yes: WNL Cardiovascular: Yes: Pulse Irregular, S2 (split) Respiratory: Yes: Diminished Gastrointestinal: Yes: Soft, Abdomen, Obese ...Rectal Exam: Yes: Deferred Genitourinary: No: Anuria Breast(s): Yes: Gynecomastia Musculoskeletal: Yes: Muscle Weakness Extremities: Yes: Cool Edema: Yes Edema: LLE: Trace, RLE: Trace Peripheral Pulses WNL: Yes Integumentary: Yes: Venous Stasis Changes Neurological: Yes: WNL Psychiatric: Yes: WNL Labs: CBC, BMP 05/07/17 05:10 05/07/17 05:10 INR, PTT INR 2.28 (0.82-1.09) H D 05/05/17 14:30 - ....Imaging Other: Image Reviewed (telemetry: ventricular pacing) Problem List - Problems (1) Acute exacerbation of chronic obstructive pulmonary disease (COPD) Assessment/Plan: F/u with oncology physician; pt seems confused about what O2 therapy he is on at home , as well as what therapy he needs for sleep apnea. Code(s): J44.1 - CHRONIC OBSTRUCTIVE PULMONARY DISEASE W (ACUTE) EXACERBATION (2) Acute on chronic systolic CHF (congestive heart failure) Assessment/Plan: Continue carvedilol, losartan, spironolactone, furosemde. F/u Is and Os, daily weight, eldctrolytes, and BUN/Cr. Code(s): I50.23 - ACUTE ON CHRONIC SYSTOLIC (CONGESTIVE) HEART FAILURE (3) Renal insufficiency Code(s): N28.9 - DISORDER OF KIDNEY AND URETER, UNSPECIFIED (4) Atrial fibrillation Assessment/Plan: On carvedilolol for HR and CHF. On apixaban for anticoagulation. Code(s): I48.91 - UNSPECIFIED ATRIAL FIBRILLATION (5) Diabetes Code(s): E11.9 - TYPE 2 DIABETES MELLITUS WITHOUT COMPLICATIONS (6) HTN (hypertension) Code(s): I10 - ESSENTIAL (PRIMARY) HYPERTENSION Qualifiers: (7) Hyperlipidemia Code(s): E78.5 - HYPERLIPIDEMIA, UNSPECIFIED Qualifiers: (8) Hypothyroid Code(s): E03.9 - HYPOTHYROIDISM, UNSPECIFIED Qualifiers: (9) Morbid obesity Code(s): E66.01 - MORBID (SEVERE) OBESITY DUE TO EXCESS CALORIES (10) Obstructive sleep apnea Code(s): G47.33 - OBSTRUCTIVE SLEEP APNEA (ADULT) (PEDIATRIC) (11) S/P implantation of automatic cardioverter/defibrillator (AICD) Code(s): Z95.810 - PRESENCE OF AUTOMATIC (IMPLANTABLE) CARDIAC DEFIBRILLATOR
--- NOTE | 2017-05-07 11:00 | PN ---
Physical Exam: SUBJECTIVE: Patient seen and examined at the bedside. States he feels his breathing is improving, denies chest pain or shortness of breath. On home oxygen @ 3 liters. OBJECTIVE: Vital Signs Period Temp Pulse Resp BP Sys/Villalobos Pulse Ox Last 24 Hr 97.4 F-98.9 F 70-73 20-28 83-135/61-77 89-97 GENERAL: The patient is awake, alert, and fully oriented, in no acute distress, has mild conversational dyspnea HEAD: Normal with no signs of trauma. EYES: PERRL, extraocular movements intact, sclera anicteric, conjunctiva clear. No ptosis. ENT: Ears normal, nares patent, oropharynx clear without exudates, moist mucous membranes. NECK: Trachea midline, full range of motion, supple. LUNGS: Diminished lung sounds bilaterally, tolerating 3 liters of nasal cannula ABDOMEN: Soft, nontender, nondistended, normoactive bowel sounds, no guarding, no rebound, no hepatosplenomegaly, no masses. LOWER EXT: +1 bilateral lower ext edema NEUROLOGICAL: Normal speech, gait not observed. PSYCH: Normal mood, normal affect. SKIN: Warm, dry, normal turgor, no rashes or lesions noted Laboratory Results - last 24 hr 05/05/17 05/06/17 05/06/17 14:21 06:30 17:16 WBC RBC Hgb Hct MCV MCH MCHC RDW Plt Count MPV Total Counted 100 Neutrophils % Neutrophils % (Manual) 94.0 H* D Band Neutrophils % 0.0 Lymphocytes % Lymphocytes % (Manual) 6.0 L D Monocytes % (Manual) 0 L D Eosinophils % (Manual) 0.0 D Basophils % (Manual) 0.0 Myelocytes % (Man) 0 Metamyelocytes 0 Hypochromia 1+ Platelet Estimate Normal Polychromasia 3+ Poikilocytosis 1+ Anisocytosis 2+ Microcytosis 2+ Macrocytosis 0 Target Cells 1+ VBG pH No Result Required. POC VBG pCO2 No Result Required. POC VBG pO2 No Result Required. Mixed VBG HCO3 No Result Required. Sodium Potassium Chloride Carbon Dioxide Anion Gap BUN Creatinine POC Glucometer [phone] Random Glucose Calcium 05/06/17 05/07/17 05/07/17 21:19 05:10 05:10 WBC 6.0 D RBC 2.73 L Hgb 7.8 L Hct 24.7 L MCV 90.5 MCH 28.7 MCHC 31.7 L RDW 22.4 H Plt Count 186 MPV 9.2 Total Counted Neutrophils % No Result Required. Neutrophils % (Manual) Band Neutrophils % Lymphocytes % No Result Required. Lymphocytes % (Manual) Monocytes % (Manual) Eosinophils % (Manual) Basophils % (Manual) Myelocytes % (Man) Metamyelocytes Hypochromia Platelet Estimate Polychromasia Poikilocytosis Anisocytosis Microcytosis Macrocytosis Target Cells VBG pH POC VBG pCO2 POC VBG pO2 Mixed VBG HCO3 Sodium 137 Potassium 4.5 Chloride 101 Carbon Dioxide 28 Anion Gap 8 BUN 36 H D Creatinine 1.1 POC Glucometer [phone] Random Glucose 198 H Calcium 9.3 Active Medications Generic Name Dose Route Start Last Admin Trade Name Freq PRN Reason Stop Dose Admin Acetaminophen 650 mg 05/05/17 15:56 Tylenol - PO Q4H PRN FEVER OR PAIN Albuterol/Ipratropium 1 amp 05/06/17 00:00 05/07/17 05:43 Duoneb - NEB 1 amp QIDR JOSE Administration Aspirin 81 mg 05/06/17 10:00 05/06/17 10:19 Asa - PO 81 mg DAILY JOSE Administration Atorvastatin Calcium 20 mg 05/06/17 22:00 05/06/17 21:42 Lipitor - PO 20 mg HS JOSE Administration Carvedilol 6.25 mg 05/05/17 22:00 05/06/17 21:41 Coreg - PO 6.25 mg BID JOSE Administration Furosemide 40 mg 05/06/17 10:00 05/06/17 10:20 Lasix Injection - IVPUSH 40 mg DAILY JOSE Administration Gabapentin 400 mg 05/05/17 22:00 05/06/17 21:42 Neurontin - PO 400 mg BID JOSE Administration Insulin Aspart 1 vial 05/05/17 22:00 05/07/17 06:25 Novolog Vial Sliding Scale - SQ 4 units ACHS JOSE Administration Protocol Insulin Detemir 5 units 05/07/17 22:00 Levemir Vial SQ HS JOSE Levothyroxine Sodium 25 mcg 05/06/17 07:00 05/07/17 06:25 Synthroid - PO 25 mcg DAILY@0700 JOSE Administration Losartan Potassium 50 mg 05/06/17 10:00 05/06/17 10:19 Cozaar - PO 50 mg DAILY JOSE Administration Methylprednisolone Sodium Succinate 40 mg 05/05/17 21:00 05/07/17 02:42 Solu-Medrol - IVPUSH 40 mg Q6H-IV JOSE Administration Pantoprazole Sodium 40 mg 05/05/17 22:00 05/06/17 21:42 Protonix - PO 40 mg BID JOSE Administration Spironolactone 25 mg 05/06/17 10:00 05/06/17 10:19 Aldactone - PO 25 mg DAILY JOSE Administration ASSESSMENT/PLAN: Patient is a 61 year old male with a significant past medical history of severe systolic CHF with ICD (followed at [facility] Heart Failure clinic), A-fib, CAD s/p stent placement x 3, CABG x 1, HTN, HLD, DM, COPD, obesity,severe obstructive sleep apnea. He presented to the ED with progressive dyspna over 3 weeks. He states he was evaluated here for pneumonia approximately 2 weeks ago and was treated with antibiotis and sent home. He states his SOB slightly improved over that time but became increasingly worse over the past 3-4 days. He denies fevers, chills, abdominal pain, constipation, diarrhea, dysuria or weakness. Imaging: echo on 03/20/17- Severe left global hypokinesia. LV with severe systolic dysfunction, RV-mild reduced function with increased pressure. Mild->mod MR. Cardiology: CHF Continue clinical statistics manager Trop negative x 3 Monitor intake and output Daily weights, intake and output Lasix 40 IV daily Cardiology following COPD On Solumedrol 40mg q6 Duonebs prn Pulmonary following Endocrine Diabetes/NIDDM/Hyperglycemia Novolog and Lantus 5 units HS F.E.N. Fluids: tolerating PO Electrolytes: monitor Nutrition: low sodium diet Prophylaxis: GI: Protonix DVT: Eliquis 5mg BID Disposition- requires observation of acute medical conditions
[2017-05-07] MEDS ORDERED: PT OWN MED DRAWER 7, Y5N ONE ×2 (11:02→11:03)
[2017-05-07] MEDS: SPIRONOLACTONE 25 MG TABLET (FP) PO SCH (11:04)
[2017-05-07] MEDS: CARVEDILOL 6.25 MG TABLET (FP) PO SCH ×2 (11:04→21:26)
[2017-05-07] MEDS: ASPIRIN 81 MG CHEWABLE TABLETS PO SCH (11:04)
[2017-05-07] MEDS: GABAPENTIN 400 MG CAPSULE (FP) PO SCH ×2 (11:05→21:27)
[2017-05-07] MEDS: LOSARTAN POTASSIUM 50 MG TABLET (FP) PO SCH (11:05)
[2017-05-07] MEDS: PANTOPRAZOLE 40 MG TABLET (FP) PO SCH ×2 (11:05→21:27)
[2017-05-07] MEDS: FUROSEMIDE 40 MG/4 ML INJECTABLE VIAL IVPUSH SCH (11:06)
[2017-05-07 11:12] LABS: ANISOCYTOSIS 3+; MACROCYTOSIS 1+; PLATELET ESTIMATE NORMAL; TARGET CELLS 1+
[2017-05-07 12:14] LABS: MAGNESIUM 2.3 mg/dL (1.8-2.4)
[2017-05-07] MEDS: ATORVASTATIN CA 20 MG TABLET (FP) PO SCH (21:27)
[2017-05-07] MEDS ORDERED: INSULIN DETEMIR 100 UNITS/ML MDV SQ SCH (22:00)
[2017-05-08] MEDS: methylPREDNISolone NA SUCC 40 MG/1 ML VIAL IVPUSH SCH ×4 (03:36→21:16)
[2017-05-08] MEDS: LEVOTHYROXINE NA 25 MCG TABLET (FP) PO SCH (06:02)
[2017-05-08] MEDS: INSULIN SLIDING SCALE (NOVOLOG) 1 VIAL SQ SCH ×4 (06:03→21:23)
[2017-05-08] MEDS: ALBUTEROL SO4 2.5/IPRATROPIUM 0.5 INH SOL 3 ML VIAL.NEB. NEB SCH ×3 (06:38→17:20)
[2017-05-08] MEDS ORDERED: PT OWN MED DRAWER 7, Y5N ONE ×2 (07:56→13:44)
[2017-05-08] MEDS: CARVEDILOL 6.25 MG TABLET (FP) PO SCH ×2 (09:34→21:17)
[2017-05-08] MEDS: SPIRONOLACTONE 25 MG TABLET (FP) PO SCH (09:34)
[2017-05-08] MEDS: PANTOPRAZOLE 40 MG TABLET (FP) PO SCH ×2 (09:34→21:17)
[2017-05-08] MEDS: LOSARTAN POTASSIUM 50 MG TABLET (FP) PO SCH (09:34)
[2017-05-08] MEDS: FUROSEMIDE 40 MG/4 ML INJECTABLE VIAL IVPUSH SCH (09:34)
[2017-05-08] MEDS: ASPIRIN 81 MG CHEWABLE TABLETS PO SCH (09:34)
[2017-05-08] MEDS: GABAPENTIN 400 MG CAPSULE (FP) PO SCH ×2 (09:34→21:17)
[2017-05-08 10:49] LABS: HEMATOCRIT 28.6 % (35.4-49); MCH 28.3 pg (25.7-33.7); MCHC 31.3 g/dl (32.0-35.9); MEAN CELL VOLUME 90.6 fl (80-96); MEAN PLT VOLUME 8.8 fl (7.5-11.1); PLATELET COUNT 212 K/MM3 (134-434); RBC 3.16 M/mm3 (4.00-5.60); RDW 22.9 % (11.9-15.9); WHITE BLOOD COUNT 7.2 K/mm3 (4.0-10.0)
[2017-05-08 10:52] LABS: ADD RBC MORPHOLOGY YES
[2017-05-08 10:59] LABS: ALBUMIN 3.9 g/dl (3.4-5.0); ALK PHOS 77 U/L (45-117); ANION GAP 9 (8-16); BILIRUBIN,TOTAL 1.4 mg/dL (0.2-1.0); BLOOD UREA NITROGEN 36 mg/dL (7-18); CALCIUM 9.9 mg/dL (8.5-10.1); CHLORIDE 98 mmol/L (98-107); CO2 32 mmol/L (21-32); CREATININE 1.3 mg/dL (0.7-1.3); GLUCOSE,RANDOM 241 mg/dL (74-106); POTASSIUM 4.5 mmol/L (3.5-5.1); SGOT/AST 12 U/L (15-37); SGPT/ALT 29 U/L (12-78); SODIUM 139 mmol/L (136-145)
[2017-05-08 11:49] LABS: ANISOCYTOSIS 3+
[2017-05-08 11:50] LABS: OVALOCYTE 1+; PLATELET ESTIMATE ADEQUATE; TARGET CELLS 2+
--- NOTE | 2017-05-08 11:59 | PN ---
Progress Note, Physician Chief Complaint: Pt OOB in chair; O2 sat >95 on 3L;min O2 NC; developed cough this morning (no phlegm); dyspneic with mild exertion. Pt's is at beside. History of Present Illness: This is a 61 yo white man with h/o severe systolic CHF-->ICD (followed at [facility] Heart Failure clinic; recent Tc99 pyrophosphate study negarive for amyloid), A- fib, CAD s/p stent placement x 3, CABG x 1, HTN, HLD, DM, COPD, obesity,severe obstructive sleep apnea, who presents with progressive SOB over 3 weeks. He states he was evaluated here for CAP approximately 2 weeks ago and was treated with IV abx and discharged. He states his SOB slightly improved over that time but became increasingly worse over the past 3-4 days. He states his exercise tolerance has decreased to approximately 1 black and is not able to ascend more than 2-3 stairs. He is unable to walk up inclines. He states he has been "bloated" for the past week. His gave his extra Lasix dose recommended by his jet handler with 11# weight loss after 1 dose. She did not give him any other doses due to recent HARMAN. He denies fevers, chills, abdominal pain, constipation, diarrhea, dysuria or weakness. He states his AICD has not fired. - Current Medication List Current Medications: Active Medications Acetaminophen (Tylenol -) 650 mg PO Q4H PRN PRN Reason: FEVER OR PAIN Albuterol/Ipratropium (Duoneb -) 1 amp NEB QIDR [facility] Last Admin: 05/08/17 06:38 Dose: 1 amp Apixaban (Eliquis -) 5 mg PO BID [facility] Aspirin (Asa -) 81 mg PO DAILY [facility] Last Admin: 05/08/17 09:34 Dose: 81 mg Atorvastatin Calcium (Lipitor -) 20 mg PO HS [facility] Last Admin: 05/07/17 21:27 Dose: 20 mg Carvedilol (Coreg -) 6.25 mg PO BID [facility] Last Admin: 05/08/17 09:34 Dose: 6.25 mg Furosemide (Lasix Injection -) 40 mg IVPUSH DAILY [facility] Last Admin: 05/08/17 09:34 Dose: 40 mg Gabapentin (Neurontin -) 400 mg PO BID [facility] Last Admin: 05/08/17 09:34 Dose: 400 mg Insulin Aspart (Novolog Vial Sliding Scale -) 1 vial SQ ACHS [facility] PRN Reason: Protocol Last Admin: 05/08/17 06:03 Dose: 4 units Insulin Detemir (Levemir Vial) 5 units SQ HS [facility] Last Admin: 05/07/17 21:35 Dose: 5 units Levothyroxine Sodium (Synthroid -) 25 mcg PO DAILY@0700 [facility] Last Admin: 05/08/17 06:02 Dose: 25 mcg Losartan Potassium (Cozaar -) 50 mg PO DAILY [facility] Last Admin: 05/08/17 09:34 Dose: 50 mg Methylprednisolone Sodium Succinate (Solu-Medrol -) 40 mg IVPUSH Q6H-IV [facility] Last Admin: 05/08/17 09:34 Dose: 40 mg Pantoprazole Sodium (Protonix -) 40 mg PO BID [facility] Last Admin: 05/08/17 09:34 Dose: 40 mg Spironolactone (Aldactone -) 25 mg PO DAILY [facility] Last Admin: 05/08/17 09:34 Dose: 25 mg - Objective Vital Signs: Vital Signs Temperature 98.4 F 05/08/17 10:00 Pulse Rate 71 05/08/17 10:00 Respiratory Rate 22 05/08/17 10:00 Blood Pressure 116/77 05/08/17 10:00 O2 Sat by Pulse Oximetry (%) 94 L 05/08/17 10:00 Constitutional: Yes: Anxious, Obese Eyes: Yes: WNL HENT: Yes: WNL Neck: Yes: WNL Cardiovascular: Yes: Pulse Irregular, S1 (varies in intensity) Respiratory: Yes: Diminished Gastrointestinal: Yes: Soft, Abdomen, Obese ...Rectal Exam: Yes: Deferred Genitourinary: No: Anuria Musculoskeletal: Yes: Muscle Weakness Extremities: Yes: Cool Edema: Yes Edema: LLE: Trace, RLE: Trace Peripheral Pulses WNL: Yes Integumentary: Yes: WNL Neurological: Yes: WNL Psychiatric: Yes: WNL Labs: CBC, BMP 05/08/17 10:10 05/08/17 10:10 INR, PTT INR 2.28 (0.82-1.09) H D 05/05/17 14:30 - ....Imaging Chest X-ray: Pending Other: Image Reviewed (telemetry: AF; periods of ventricular pacing) Problem List - Problems (1) Acute exacerbation of chronic obstructive pulmonary disease (COPD) Assessment/Plan: F/u with mri special procedures technologist; pt seems confused about what O2 therapy he is on at home , as well as what therapy he needs for sleep apnea. CXR pending. Code(s): J44.1 - CHRONIC OBSTRUCTIVE PULMONARY DISEASE W (ACUTE) EXACERBATION (2) Acute on chronic systolic CHF (congestive heart failure) Assessment/Plan: Continue carvedilol, losartan, spironolactone, furosemde. F/u Is and Os, daily weight, electrolytes, and BUN/Cr. Code(s): I50.23 - ACUTE ON CHRONIC SYSTOLIC (CONGESTIVE) HEART FAILURE (3) Renal insufficiency Code(s): N28.9 - DISORDER OF KIDNEY AND URETER, UNSPECIFIED (4) Atrial fibrillation Assessment/Plan: On carvedilolol for HR and CHF. On apixaban for anticoagulation. Code(s): I48.91 - UNSPECIFIED ATRIAL FIBRILLATION (5) Diabetes Code(s): E11.9 - TYPE 2 DIABETES MELLITUS WITHOUT COMPLICATIONS (6) HTN (hypertension) Code(s): I10 - ESSENTIAL (PRIMARY) HYPERTENSION Qualifiers: (7) Hyperlipidemia Code(s): E78.5 - HYPERLIPIDEMIA, UNSPECIFIED Qualifiers: (8) Hypothyroid Code(s): E03.9 - HYPOTHYROIDISM, UNSPECIFIED Qualifiers: (9) Morbid obesity Assessment/Plan: dietary education; pt has lost a few pounds through more careful food choice and portion control. Code(s): E66.01 - MORBID (SEVERE) OBESITY DUE TO EXCESS CALORIES (10) Obstructive sleep apnea Code(s): G47.33 - OBSTRUCTIVE SLEEP APNEA (ADULT) (PEDIATRIC) (11) S/P implantation of automatic cardioverter/defibrillator (AICD) Code(s): Z95.810 - PRESENCE OF AUTOMATIC (IMPLANTABLE) CARDIAC DEFIBRILLATOR
[2017-05-08] MEDS: APIXABAN 5 MG TABLET PO SCH ×2 (13:45→21:17)
[2017-05-08] MEDS ORDERED: guaiFENesin/CODEINE 10 ML UNIT-DOSE CUPS PO PRN (14:07)
--- NOTE | 2017-05-08 14:07 | PN ---
Progress Note, Physician History of Present Illness: PULMONARY OOB-CHAIR,STILL DYSPNEIC BUT IMPROVING,+ COUGH - Current Medication List Current Medications: Active Medications Acetaminophen (Tylenol -) 650 mg PO Q4H PRN PRN Reason: FEVER OR PAIN Albuterol/Ipratropium (Duoneb -) 1 amp NEB QIDR [facility] Last Admin: 05/08/17 11:20 Dose: 1 amp Apixaban (Eliquis -) 5 mg PO BID [facility] Last Admin: 05/08/17 13:45 Dose: 5 mg Aspirin (Asa -) 81 mg PO DAILY [facility] Last Admin: 05/08/17 09:34 Dose: 81 mg Atorvastatin Calcium (Lipitor -) 20 mg PO HS [facility] Last Admin: 05/07/17 21:27 Dose: 20 mg Carvedilol (Coreg -) 6.25 mg PO BID [facility] Last Admin: 05/08/17 09:34 Dose: 6.25 mg Furosemide (Lasix Injection -) 40 mg IVPUSH DAILY [facility] Last Admin: 05/08/17 09:34 Dose: 40 mg Gabapentin (Neurontin -) 400 mg PO BID [facility] Last Admin: 05/08/17 09:34 Dose: 400 mg Insulin Aspart (Novolog Vial Sliding Scale -) 1 vial SQ [facility] PRN Reason: Protocol Last Admin: 05/08/17 12:36 Dose: 6 units Insulin Detemir (Levemir Vial) 5 units SQ [facility] Last Admin: 05/07/17 21:35 Dose: 5 units Levothyroxine Sodium (Synthroid -) 25 mcg PO DAILY@0700 [facility] Last Admin: 05/08/17 06:02 Dose: 25 mcg Losartan Potassium (Cozaar -) 50 mg PO DAILY [facility] Last Admin: 05/08/17 09:34 Dose: 50 mg Methylprednisolone Sodium Succinate (Solu-Medrol -) 40 mg IVPUSH Q6H-IV [facility] Last Admin: 05/08/17 09:34 Dose: 40 mg Pantoprazole Sodium (Protonix -) 40 mg PO BID [facility] Last Admin: 05/08/17 09:34 Dose: 40 mg Spironolactone (Aldactone -) 25 mg PO DAILY [facility] Last Admin: 05/08/17 09:34 Dose: 25 mg - Objective Vital Signs: Vital Signs Temperature 98.4 F 05/08/17 10:00 Pulse Rate 71 05/08/17 10:00 Respiratory Rate 22 05/08/17 10:00 Blood Pressure 116/77 05/08/17 10:00 O2 Sat by Pulse Oximetry (%) 94 L 05/08/17 10:00 Constitutional: Yes: Calm, Obese Eyes: Yes: WNL HENT: Yes: WNL Neck: Yes: WNL Cardiovascular: Yes: Pulse Irregular, S1, S2 Respiratory: Yes: Rales (FEW RHONCHI) Gastrointestinal: Yes: Normal Bowel Sounds, Soft Extremities: Yes: WNL Edema: No Labs: CBC, BMP 05/08/17 10:10 05/08/17 10:10 INR, PTT INR 2.28 (0.82-1.09) H D 05/05/17 14:30 Problem List - Problems (1) Acute exacerbation of chronic obstructive pulmonary disease (COPD) Code(s): J44.1 - CHRONIC OBSTRUCTIVE PULMONARY DISEASE W (ACUTE) EXACERBATION (2) Chronic hypoxemic respiratory failure Code(s): J96.11 - CHRONIC RESPIRATORY FAILURE WITH HYPOXIA (3) Atrial fibrillation Code(s): I48.91 - UNSPECIFIED ATRIAL FIBRILLATION (4) Congestive heart failure with left ventricular systolic dysfunction Code(s): I50.20 - UNSPECIFIED SYSTOLIC (CONGESTIVE) HEART FAILURE (5) Diabetes Code(s): E11.9 - TYPE 2 DIABETES MELLITUS WITHOUT COMPLICATIONS (6) HTN (hypertension) Code(s): I10 - ESSENTIAL (PRIMARY) HYPERTENSION Qualifiers: (7) Hyperlipidemia Code(s): E78.5 - HYPERLIPIDEMIA, UNSPECIFIED Qualifiers: (8) Hypothyroid Code(s): E03.9 - HYPOTHYROIDISM, UNSPECIFIED Qualifiers: (9) Morbid obesity Code(s): E66.01 - MORBID (SEVERE) OBESITY DUE TO EXCESS CALORIES (10) Obstructive sleep apnea Code(s): G47.33 - OBSTRUCTIVE SLEEP APNEA (ADULT) (PEDIATRIC) (11) S/P implantation of automatic cardioverter/defibrillator (AICD) Code(s): Z95.810 - PRESENCE OF AUTOMATIC (IMPLANTABLE) CARDIAC DEFIBRILLATOR (12) Acute on chronic respiratory failure with hypoxemia Code(s): J96.21 - ACUTE AND CHRONIC RESPIRATORY FAILURE WITH HYPOXIA (13) Acute on chronic systolic CHF (congestive heart failure) Code(s): I50.23 - ACUTE ON CHRONIC SYSTOLIC (CONGESTIVE) HEART FAILURE Assessment/Plan IMP ACUTE ON CHRONIC HYPOXEMIC RESPIRATORY FAILURE COPD ACUTE ON CHRONIC CHF CARDIOMYOPATHY S/P AICD ASHD S/P CABG,STENT OSAS HTN IDDM HLD ACUTE ON CHRONIC KIDNEY DISEASE ANEMIA AFIB PLAN CONTINUE IV STEROIDS SAME DOSE IV LASIX INHALED BRONCHODILATORS O2 BIPAP AT NIGHT AND PRN FOR INCREASING RESPIRATORY DISTRESS CHEST X-RAY ANTI-TUSSIVES DR ECHEVARRIA Problem List - Problems (1) Acute exacerbation of chronic obstructive pulmonary disease (COPD) Code(s): J44.1 - CHRONIC OBSTRUCTIVE PULMONARY DISEASE W (ACUTE) EXACERBATION (2) Chronic hypoxemic respiratory failure Code(s): J96.11 - CHRONIC RESPIRATORY FAILURE WITH HYPOXIA (3) Atrial fibrillation Code(s): I48.91 - UNSPECIFIED ATRIAL FIBRILLATION (4) Congestive heart failure with left ventricular systolic dysfunction Code(s): I50.20 - UNSPECIFIED SYSTOLIC (CONGESTIVE) HEART FAILURE (5) Diabetes Code(s): E11.9 - TYPE 2 DIABETES MELLITUS WITHOUT COMPLICATIONS (6) HTN (hypertension) Code(s): I10 - ESSENTIAL (PRIMARY) HYPERTENSION Qualifiers: (7) Hyperlipidemia Code(s): E78.5 - HYPERLIPIDEMIA, UNSPECIFIED Qualifiers: (8) Hypothyroid Code(s): E03.9 - HYPOTHYROIDISM, UNSPECIFIED Qualifiers: (9) Morbid obesity Code(s): E66.01 - MORBID (SEVERE) OBESITY DUE TO EXCESS CALORIES (10) Obstructive sleep apnea Code(s): G47.33 - OBSTRUCTIVE SLEEP APNEA (ADULT) (PEDIATRIC) (11) S/P implantation of automatic cardioverter/defibrillator (AICD) Code(s): Z95.810 - PRESENCE OF AUTOMATIC (IMPLANTABLE) CARDIAC DEFIBRILLATOR (12) Acute on chronic respiratory failure with hypoxemia Code(s): J96.21 - ACUTE AND CHRONIC RESPIRATORY FAILURE WITH HYPOXIA (13) Acute on chronic systolic CHF (congestive heart failure) Code(s): I50.23 - ACUTE ON CHRONIC SYSTOLIC (CONGESTIVE) HEART FAILURE
--- NOTE | 2017-05-08 17:30 | PN ---
Physical Exam: SUBJECTIVE: Patient seen and examined in tele ICU: Patient is still having shortness of breath with ambulation, tolerating between 3 to 4 liters of nasal cannula. OBJECTIVE: Vital Signs Period Temp Pulse Resp BP Sys/Villalobos Pulse Ox Last 24 Hr 97.6 F-98.4 F 70-92 16-22 108-121/63-83 94-94 GENERAL: The patient is awake, alert, and fully oriented, in no acute distress, has mild conversational dyspnea HEAD: Normal with no signs of trauma. EYES: PERRL, extraocular movements intact, sclera anicteric, conjunctiva clear. No ptosis. ENT: Ears normal, nares patent, oropharynx clear without exudates, moist mucous membranes. NECK: Trachea midline, full range of motion, supple. LUNGS: Diminished lung sounds bilaterally, tolerating 3 liters of nasal cannula ABDOMEN: Soft, nontender, nondistended, normoactive bowel sounds, no guarding, no rebound, no hepatosplenomegaly, no masses. LOWER EXT: +1 bilateral lower ext edema NEUROLOGICAL: Normal speech, gait not observed. PSYCH: Normal mood, normal affect. SKIN: Warm, dry, normal turgor, no rashes or lesions noted Laboratory Results - last 24 hr 05/08/17 05/08/17 05/08/17 06:02 10:10 10:10 WBC 7.2 RBC 3.16 L Hgb 9.0 L D Hct 28.6 L D MCV 90.6 MCH 28.3 MCHC 31.3 L RDW 22.9 H Plt Count 212 MPV 8.8 Neutrophils % No Result Required. Lymphocytes % No Result Required. Hypochromia 2+ Platelet Estimate Adequate Platelet Comment No clumping noted Polychromasia 1+ Poikilocytosis 2+ Anisocytosis 3+ Microcytosis 1+ Target Cells 2+ Ovalocytes 1+ Sodium 139 Potassium 4.5 Chloride 98 Carbon Dioxide 32 Anion Gap 9 BUN 36 H Creatinine 1.3 Creat Clearance w eGFR 56.50 POC Glucometer [phone] Random Glucose 241 H D Calcium 9.9 Total Bilirubin 1.4 H AST 12 L ALT 29 Alkaline Phosphatase 77 Total Protein 8.0 Albumin 3.9 Active Medications Generic Name Dose Route Start Last Admin Trade Name Freq PRN Reason Stop Dose Admin Acetaminophen 650 mg 05/05/17 15:56 Tylenol - PO Q4H PRN FEVER OR PAIN Albuterol/Ipratropium 1 amp 05/06/17 00:00 05/08/17 11:20 Duoneb - NEB 1 amp QIDR JOSE Administration Apixaban 5 mg 05/08/17 12:00 05/08/17 13:45 Eliquis - PO 5 mg BID JOSE Administration Aspirin 81 mg 05/06/17 10:00 05/08/17 09:34 Asa - PO 81 mg DAILY JOSE Administration Atorvastatin Calcium 20 mg 05/06/17 22:00 05/07/17 21:27 Lipitor - PO 20 mg HS JOSE Administration Carvedilol 6.25 mg 05/05/17 22:00 05/08/17 09:34 Coreg - PO 6.25 mg BID JOSE Administration Furosemide 40 mg 05/06/17 10:00 05/08/17 09:34 Lasix Injection - IVPUSH 40 mg DAILY JOSE Administration Gabapentin 400 mg 05/05/17 22:00 05/08/17 09:34 Neurontin - PO 400 mg BID JOSE Administration Guaifenesin/Codeine Phosphate 10 ml 05/08/17 14:07 Robitussin Ac - PO Q8H PRN COUGH Insulin Aspart 1 vial 05/05/17 22:00 05/08/17 16:36 Novolog Vial Sliding Scale - SQ 4 units ACHS JOSE Administration Protocol Insulin Detemir 5 units 05/07/17 22:00 05/07/17 21:35 Levemir Vial SQ 5 units HS JOSE Administration Levothyroxine Sodium 25 mcg 05/06/17 07:00 05/08/17 06:02 Synthroid - PO 25 mcg DAILY@0700 JOSE Administration Losartan Potassium 50 mg 05/06/17 10:00 05/08/17 09:34 Cozaar - PO 50 mg DAILY JOSE Administration Methylprednisolone Sodium Succinate 40 mg 05/05/17 21:00 05/08/17 16:29 Solu-Medrol - IVPUSH 40 mg Q6H-IV JOSE Administration Pantoprazole Sodium 40 mg 05/05/17 22:00 05/08/17 09:34 Protonix - PO 40 mg BID JOSE Administration Spironolactone 25 mg 05/06/17 10:00 05/08/17 09:34 Aldactone - PO 25 mg DAILY JOSE Administration ASSESSMENT/PLAN: Patient is a 61 year old male with a significant past medical history of severe systolic CHF with ICD (followed at [facility] Heart Failure clinic), A-fib, CAD s/p stent placement x 3, CABG x 1, HTN, HLD, DM, COPD, obesity,severe obstructive sleep apnea. He presented to the ED with progressive dyspnea over 3 weeks. He states he was evaluated here for pneumonia approximately 2 weeks ago and was treated with antibiotics and sent home. He states his SOB slightly improved over that time but became increasingly worse over the past 3-4 days prior to admission. He denies fevers, chills, abdominal pain, constipation, diarrhea, dysuria or weakness. Imaging: echo on 03/20/17- Severe left global hypokinesia. LV with severe systolic dysfunction, RV-mild reduced function with increased pressure. Mild->mod MR. Cardiology: Systolic CHF, acute on chronic Continue cardiac monitoring Trop negative x 3 Monitor intake and output and daily weights Lasix 40 IV daily as per cardiology Cardiology following Pulmonary: COPD, acute on chronic On Solumedrol 40mg q6 Duonebs prn Bipap at night as per pulm. Pulmonary following Endocrine Diabetes/NIDDM/Hyperglycemia Novolog and Lantus HS Monitor blood sugars F.E.N. Fluids: tolerating PO Electrolytes: monitor Nutrition: low sodium diet Prophylaxis: GI: Protonix DVT: Eliquis 5mg BID Disposition- requires observation of acute medical conditions
[2017-05-08] MEDS ORDERED: INSULIN DETEMIR 100 UNITS/ML MDV SQ SCH (17:33)
[2017-05-08] MEDS: ATORVASTATIN CA 20 MG TABLET (FP) PO SCH (21:17)
[2017-05-09] MEDS: ALBUTEROL SO4 2.5/IPRATROPIUM 0.5 INH SOL 3 ML VIAL.NEB. NEB SCH ×5 (00:10→23:11)
[2017-05-09] MEDS: methylPREDNISolone NA SUCC 40 MG/1 ML VIAL IVPUSH SCH ×3 (03:11→14:29)
[2017-05-09] MEDS: INSULIN SLIDING SCALE (NOVOLOG) 1 VIAL SQ SCH ×4 (06:08→22:58)
[2017-05-09] MEDS: LEVOTHYROXINE NA 25 MCG TABLET (FP) PO SCH (06:08)
[2017-05-09 06:52] LABS: HEMATOCRIT 27.7 % (35.4-49); HEMOGLOBIN 8.8 GM/dL (11.7-16.9); MCH 28.5 pg (25.7-33.7); MCHC 31.7 g/dl (32.0-35.9); MEAN CELL VOLUME 89.8 fl (80-96); MEAN PLT VOLUME 9.1 fl (7.5-11.1); PLATELET COUNT 216 K/MM3 (134-434); RBC 3.09 M/mm3 (4.00-5.60); RDW 22.7 % (11.9-15.9); WHITE BLOOD COUNT 5.2 K/mm3 (4.0-10.0)
[2017-05-09 07:07] LABS: ALBUMIN 3.5 g/dl (3.4-5.0); ANION GAP 11 (8-16); BILIRUBIN,TOTAL 1.1 mg/dL (0.2-1.0); BLOOD UREA NITROGEN 37 mg/dL (7-18); CALCIUM 9.1 mg/dL (8.5-10.1); CHLORIDE 96 mmol/L (98-107); CO2 30 mmol/L (21-32); CREATININE 1.3 mg/dL (0.7-1.3); GLUCOSE,RANDOM 239 mg/dL (74-106); MAGNESIUM 2.3 mg/dL (1.8-2.4); POTASSIUM 4.2 mmol/L (3.5-5.1); SGOT/AST 12 U/L (15-37); SGPT/ALT 32 U/L (12-78); SODIUM 137 mmol/L (136-145); TOT PROT 7.2 g/dl (6.4-8.2)
[2017-05-09 07:08] LABS: ALK PHOS 68 U/L (45-117)
[2017-05-09] MEDS ORDERED: PT OWN MED DRAWER 7, Y5N ONE ×2 (08:12→09:03)
[2017-05-09] MEDS: GABAPENTIN 400 MG CAPSULE (FP) PO SCH ×2 (09:00→22:32)
[2017-05-09] MEDS: FUROSEMIDE 40 MG/4 ML INJECTABLE VIAL IVPUSH SCH (09:00)
[2017-05-09] MEDS: LOSARTAN POTASSIUM 50 MG TABLET (FP) PO SCH (09:00)
[2017-05-09] MEDS: CARVEDILOL 6.25 MG TABLET (FP) PO SCH ×2 (09:01→22:33)
[2017-05-09] MEDS: ASPIRIN 81 MG CHEWABLE TABLETS PO SCH (09:01)
[2017-05-09] MEDS: PANTOPRAZOLE 40 MG TABLET (FP) PO SCH ×2 (09:01→22:30)
[2017-05-09] MEDS: SPIRONOLACTONE 25 MG TABLET (FP) PO SCH (09:03)
[2017-05-09] MEDS: APIXABAN 5 MG TABLET PO SCH ×2 (09:03→22:34)
[2017-05-09 11:57] LABS: ANISOCYTOSIS 2+; MACROCYTOSIS 0; OVALOCYTE 2+; PLATELET ESTIMATE NORMAL
[2017-05-09] MEDS ORDERED: INSULIN (NOVOLOG) ASPART 100 UNITS/ML 10ML VIAL ONE (12:44)
--- NOTE | 2017-05-09 12:48 | PN ---
Physical Exam: SUBJECTIVE: Patient seen and examined in tele. Today he feels better, less short of breath, tolerating 3 liters of oxygen. Oxygen home dependent at 3 liters. OBJECTIVE: Vital Signs Period Temp Pulse Resp BP Sys/Villalobos Pulse Ox Last 24 Hr 97.5 F-98.6 F 70-88 17-21 105-126/72-88 95-100 GENERAL: The patient is awake, alert, and fully oriented, in no acute distress HEAD: Normal with no signs of trauma. EYES: PERRL, extraocular movements intact, sclera anicteric, conjunctiva clear. No ptosis. ENT: Ears normal, nares patent, oropharynx clear without exudates, moist mucous membranes. NECK: Trachea midline, full range of motion, supple. LUNGS: Diminished lung sounds bilaterally, tolerating 3 liters of nasal cannula , mild crackles on right lower base ABDOMEN: Soft, nontender, nondistended, normoactive bowel sounds, no guarding, no rebound, no hepatosplenomegaly, no masses. EXTREMITIES: +1 bilateral lower ext edema NEUROLOGICAL: Normal speech, gait not observed. PSYCH: Normal mood, normal affect. SKIN: Warm, dry, normal turgor, no rashes or lesions noted Laboratory Results - last 24 hr 05/09/17 05/09/17 05/09/17 05:39 06:15 06:15 WBC 5.2 RBC 3.09 L Hgb 8.8 L Hct 27.7 L MCV 89.8 MCH 28.5 MCHC 31.7 L RDW 22.7 H Plt Count 216 MPV 9.1 Total Counted 100 Neutrophils % No Result Required. Neutrophils % (Manual) 91.8 H* Band Neutrophils % 0.0 Lymphocytes % No Result Required. Lymphocytes % (Manual) 5.1 L D Monocytes % (Manual) 3 L Eosinophils % (Manual) 0.0 Basophils % (Manual) 0.0 Myelocytes % (Man) 0 Metamyelocytes 0 Hypochromia 1+ Platelet Estimate Normal Polychromasia 3+ Poikilocytosis 1+ Anisocytosis 2+ Microcytosis 2+ Macrocytosis 0 Ovalocytes 2+ Sodium 137 Potassium 4.2 Chloride 96 L Carbon Dioxide 30 Anion Gap 11 BUN 37 H Creatinine 1.3 Creat Clearance w eGFR 56.50 POC Glucometer [phone] Random Glucose 239 H Calcium 9.1 Magnesium 2.3 Total Bilirubin 1.1 H D AST 12 L ALT 32 Alkaline Phosphatase 68 Total Protein 7.2 Albumin 3.5 Active Medications Generic Name Dose Route Start Last Admin Trade Name Luc PRN Reason Stop Dose Admin Acetaminophen 650 mg 05/05/17 15:56 Tylenol - PO Q4H PRN FEVER OR PAIN Albuterol/Ipratropium 1 amp 05/06/17 00:00 05/09/17 07:02 Duoneb - NEB 1 amp QIDR JOSE Administration Apixaban 5 mg 05/08/17 12:00 05/09/17 09:03 Eliquis - PO 5 mg BID JOSE Administration Aspirin 81 mg 05/06/17 10:00 05/09/17 09:01 Asa - PO 81 mg DAILY JOSE Administration Atorvastatin Calcium 20 mg 05/06/17 22:00 05/08/17 21:17 Lipitor - PO 20 mg HS JOSE Administration Carvedilol 6.25 mg 05/05/17 22:00 05/09/17 09:01 Coreg - PO 6.25 mg BID JOSE Administration Furosemide 40 mg 05/06/17 10:00 05/09/17 09:00 Lasix Injection - IVPUSH 40 mg DAILY JOSE Administration Gabapentin 400 mg 05/05/17 22:00 05/09/17 09:00 Neurontin - PO 400 mg BID JOSE Administration Guaifenesin/Codeine Phosphate 10 ml 05/08/17 14:07 Robitussin Ac - PO Q8H PRN COUGH Insulin Aspart 1 vial 05/05/17 22:00 05/09/17 12:45 Novolog Vial Sliding Scale - SQ 12 units ACHS JOSE Administration Protocol Insulin Detemir 10 units 05/08/17 17:33 05/08/17 21:16 Levemir Vial SQ 10 units HS JOSE Administration Levothyroxine Sodium 25 mcg 05/06/17 07:00 05/09/17 06:08 Synthroid - PO 25 mcg DAILY@0700 JOSE Administration Losartan Potassium 50 mg 05/06/17 10:00 05/09/17 09:00 Cozaar - PO 50 mg DAILY JOSE Administration Methylprednisolone Sodium Succinate 40 mg 05/05/17 21:00 05/09/17 08:49 Solu-Medrol - IVPUSH 40 mg Q6H-IV JOSE Administration Pantoprazole Sodium 40 mg 05/05/17 22:00 05/09/17 09:01 Protonix - PO 40 mg BID JOSE Administration Spironolactone 25 mg 05/06/17 10:00 05/09/17 09:03 Aldactone - PO 25 mg DAILY JOSE Administration ASSESSMENT/PLAN: Patient is a 61 year old male with a significant past medical history of severe systolic CHF with ICD, atrial fibrillation, CAD, CABG x 1, hypertension, hyperlipidemia, diabetes, COPD, obesity, severe obstructive sleep apnea (on CPAP at home). He presented to the ED with progressive dyspnea over 3 weeks. He states he was evaluated here for pneumonia approximately 2 weeks ago and was treated with antibiotics and sent home. He states his SOB slightly improved at home but over that time but became increasingly worse over the past 3-4 days prior to admission. He is home oxygen dependent at 3 liters at home. Imaging: echo on 03/20/17- Severe left global hypokinesia. LV with severe systolic dysfunction, RV-mild reduced function with increased pressure. Mild->mod MR. Cardiology: Systolic CHF, acute on chronic Continue cardiac monitoring Trop negative x 3 Monitor intake and output and daily weights Lasix 40 IV daily as per cardiology Cardiology following Pulmonary: COPD, acute on chronic On Solumedrol 40mg q6, titrate as per pulmonary Duonebs prn Bipap Pulmonary following Endocrine Diabetes/NIDDM/Hyperglycemia Novolog sliding scale adjusted for tighter control and Lantus 15 units HS Monitor blood sugars, elevated today F.E.N. Fluids: tolerating PO Electrolytes: monitor Nutrition: low sodium diet Prophylaxis: GI: Protonix DVT: Eliquis 5mg BID Disposition. Requires inpatient hospitalization. full code.
--- NOTE | 2017-05-09 13:13 | PN ---
Progress Note, Physician History of Present Illness: seen and examined today in nad. feeling better. no overnight events. no new complaints. - Current Medication List Current Medications: Active Medications Acetaminophen (Tylenol -) 650 mg PO Q4H PRN PRN Reason: FEVER OR PAIN Albuterol/Ipratropium (Duoneb -) 1 amp NEB QIDR [facility] Last Admin: 05/09/17 07:02 Dose: 1 amp Apixaban (Eliquis -) 5 mg PO BID [facility] Last Admin: 05/09/17 09:03 Dose: 5 mg Aspirin (Asa -) 81 mg PO DAILY [facility] Last Admin: 05/09/17 09:01 Dose: 81 mg Atorvastatin Calcium (Lipitor -) 20 mg PO HS [facility] Last Admin: 05/08/17 21:17 Dose: 20 mg Carvedilol (Coreg -) 6.25 mg PO BID [facility] Last Admin: 05/09/17 09:01 Dose: 6.25 mg Furosemide (Lasix Injection -) 40 mg IVPUSH DAILY [facility] Last Admin: 05/09/17 09:00 Dose: 40 mg Gabapentin (Neurontin -) 400 mg PO BID [facility] Last Admin: 05/09/17 09:00 Dose: 400 mg Guaifenesin/Codeine Phosphate (Robitussin Ac -) 10 ml PO Q8H PRN PRN Reason: COUGH Insulin Aspart (Novolog Vial Sliding Scale -) 1 vial SQ ACHS [facility] PRN Reason: Protocol Insulin Detemir (Levemir Vial) 10 units SQ HS [facility] Last Admin: 05/08/17 21:16 Dose: 10 units Levothyroxine Sodium (Synthroid -) 25 mcg PO DAILY@0700 [facility] Last Admin: 05/09/17 06:08 Dose: 25 mcg Losartan Potassium (Cozaar -) 50 mg PO DAILY [facility] Last Admin: 05/09/17 09:00 Dose: 50 mg Methylprednisolone Sodium Succinate (Solu-Medrol -) 40 mg IVPUSH Q6H-IV [facility] Last Admin: 05/09/17 08:49 Dose: 40 mg Pantoprazole Sodium (Protonix -) 40 mg PO BID [facility] Last Admin: 05/09/17 09:01 Dose: 40 mg Spironolactone (Aldactone -) 25 mg PO DAILY [facility] Last Admin: 05/09/17 09:03 Dose: 25 mg - Objective Vital Signs: Vital Signs Temperature 97.5 F L 12/30/17 10:00 Pulse Rate 88 05/09/17 11:46 Respiratory Rate 17 05/09/17 10:00 Blood Pressure 105/75 05/09/17 10:00 O2 Sat by Pulse Oximetry (%) 99 05/09/17 11:46 Constitutional: Yes: No Distress, Calm Eyes: Yes: Conjunctiva Clear, EOM Intact, PERRL HENT: Yes: Atraumatic, Normocephalic Neck: Yes: Supple, Trachea Midline Cardiovascular: Yes: Regular Rate and Rhythm, S1, S2. No: Bradycardia, Tachycardia, Pulse Irregular, Bruit, JVD, Gallop, Murmur, Rub, S3, S4, Varicosities Respiratory: Yes: Regular, Diminished, Rales. No: Rhonchi, SOB, Wheezes Gastrointestinal: Yes: Normal Bowel Sounds, Soft. No: Distention, Tenderness Edema: Yes Edema: LLE: 1+, RLE: 1+ Peripheral Pulses WNL: Yes Peripheral Pulses: Left Doralis Pedis: 2+, Right Dorsalis Pedis: 2+ Neurological: Yes: Alert, Oriented Psychiatric: Yes: Alert, Oriented Labs: CBC, BMP 05/09/17 06:15 05/09/17 06:15 INR, PTT INR 2.28 (0.82-1.09) H D 05/05/17 14:30 - ....Imaging Chest X-ray: Report Reviewed, Image Reviewed EKG: Report Reviewed, Image Reviewed Other: Report Reviewed, Image Reviewed (tele-Vpaced, PVCs) Assessment/Plan 61 yo white man with h/o severe systolic CHF-->ICD (followed at [facility] Heart Failure clinic; recent Tc99 pyrophosphate study negarive for amyloid), A-fib, CAD s/p stent placement x 3, CABG x 1, HTN, HLD, DM, COPD, obesity,severe obstructive sleep apnea, who presents with progressive SOB over 3 weeks. SOB-AE COPD, Acute on chronic systolic CHF h/o ICD -volume status improving but still volume overloaded -cont current Lasix dose and titrate as needed -Continue carvedilol, losartan, spironolactone F/u Is and Os, daily weight, electrolytes, and BUN/Cr. 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 -On apixaban for anticoagulation. HTN- controlled -cont current medical regimen CAD h/o CABG h/o stent -cont ASA, lipitor, coreg -outpatient f/up
[2017-05-09] MEDS ORDERED: INSULIN DETEMIR 100 UNITS/ML MDV SQ SCH (13:23)
--- NOTE | 2017-05-09 13:41 | PN ---
Progress Note (short form) - Note Progress Note: OOB to chair. Breathing seems a little better. Some dry cough. Intake & Output 05/06/17 05/07/17 05/08/17 05/09/17 23:59 23:59 23:59 23:59 Intake Total 570 540 480 240 Output Total 800 1900 2325 Balance -230 -7623 -7324 240 Weight 253 lb 253 lb 15.56 oz 251 lb 1.704 oz Last Vital Signs Temp Pulse Resp BP Pulse Ox 97.5 F L 88 17 105/75 99 05/09/17 10:00 05/09/17 11:46 05/09/17 10:00 05/09/17 10:00 05/09/17 11:46 Active Medications Acetaminophen (Tylenol -) 650 mg PO Q4H PRN PRN Reason: FEVER OR PAIN Albuterol/Ipratropium (Duoneb -) 1 amp NEB QIDR [facility] Last Admin: 05/09/17 07:02 Dose: 1 amp Apixaban (Eliquis -) 5 mg PO BID [facility] Last Admin: 05/09/17 09:03 Dose: 5 mg Aspirin (Asa -) 81 mg PO DAILY [facility] Last Admin: 05/09/17 09:01 Dose: 81 mg Atorvastatin Calcium (Lipitor -) 20 mg PO HS [facility] Last Admin: 05/08/17 21:17 Dose: 20 mg Carvedilol (Coreg -) 6.25 mg PO BID [facility] Last Admin: 05/09/17 09:01 Dose: 6.25 mg Furosemide (Lasix Injection -) 40 mg IVPUSH DAILY [facility] Last Admin: 05/09/17 09:00 Dose: 40 mg Gabapentin (Neurontin -) 400 mg PO BID [facility] Last Admin: 05/09/17 09:00 Dose: 400 mg Guaifenesin/Codeine Phosphate (Robitussin Ac -) 10 ml PO Q8H PRN PRN Reason: COUGH Insulin Aspart (Novolog Vial Sliding Scale -) 1 vial SQ ACHS [facility] PRN Reason: Protocol Insulin Detemir (Levemir Vial) 15 units SQ HS [facility] Levothyroxine Sodium (Synthroid -) 25 mcg PO DAILY@0700 [facility] Last Admin: 05/09/17 06:08 Dose: 25 mcg Losartan Potassium (Cozaar -) 50 mg PO DAILY [facility] Last Admin: 05/09/17 09:00 Dose: 50 mg Methylprednisolone Sodium Succinate (Solu-Medrol -) 40 mg IVPUSH Q6H-IV [facility] Last Admin: 05/09/17 08:49 Dose: 40 mg Pantoprazole Sodium (Protonix -) 40 mg PO BID [facility] Last Admin: 05/09/17 09:01 Dose: 40 mg Spironolactone (Aldactone -) 25 mg PO DAILY [facility] Last Admin: 05/09/17 09:03 Dose: 25 mg Constitutional: Yes: Awake and alert, NAD Eyes: Yes: WNL HENT: Yes: WNL Neck: Yes: WNL Cardiovascular: Yes: Pulse Irregular, S1, S2 Respiratory: Yes: Basilar Rales/rhonchi, no wheeze Gastrointestinal: Yes: Normal Bowel Sounds, Soft Extremities: Yes: WNL Edema: No Labs: Laboratory Results - last 24 hr 05/09/17 05/09/17 05/09/17 05:39 06:15 06:15 WBC 5.2 RBC 3.09 L Hgb 8.8 L Hct 27.7 L MCV 89.8 MCH 28.5 MCHC 31.7 L RDW 22.7 H Plt Count 216 MPV 9.1 Total Counted 100 Neutrophils % No Result Required. Neutrophils % (Manual) 91.8 H* Band Neutrophils % 0.0 Lymphocytes % No Result Required. Lymphocytes % (Manual) 5.1 L D Monocytes % (Manual) 3 L Eosinophils % (Manual) 0.0 Basophils % (Manual) 0.0 Myelocytes % (Man) 0 Metamyelocytes 0 Hypochromia 1+ Platelet Estimate Normal Polychromasia 3+ Poikilocytosis 1+ Anisocytosis 2+ Microcytosis 2+ Macrocytosis 0 Ovalocytes 2+ Sodium 137 Potassium 4.2 Chloride 96 L Carbon Dioxide 30 Anion Gap 11 BUN 37 H Creatinine 1.3 Creat Clearance w eGFR 56.50 POC Glucometer [phone] Random Glucose 239 H Calcium 9.1 Magnesium 2.3 Total Bilirubin 1.1 H D AST 12 L ALT 32 Alkaline Phosphatase 68 Total Protein 7.2 Albumin 3.5 05/09/17 12:32 WBC RBC Hgb Hct MCV MCH MCHC RDW Plt Count MPV Total Counted Neutrophils % Neutrophils % (Manual) Band Neutrophils % Lymphocytes % Lymphocytes % (Manual) Monocytes % (Manual) Eosinophils % (Manual) Basophils % (Manual) Myelocytes % (Man) Metamyelocytes Hypochromia Platelet Estimate Polychromasia Poikilocytosis Anisocytosis Microcytosis Macrocytosis Ovalocytes Sodium Potassium Chloride Carbon Dioxide Anion Gap BUN Creatinine Creat Clearance w eGFR POC Glucometer > 400 Random Glucose Calcium Magnesium Total Bilirubin AST ALT Alkaline Phosphatase Total Protein Albumin Problem List - Problems (1) Acute exacerbation of chronic obstructive pulmonary disease (COPD) Code(s): J44.1 - CHRONIC OBSTRUCTIVE PULMONARY DISEASE W (ACUTE) EXACERBATION (2) Chronic hypoxemic respiratory failure Code(s): J96.11 - CHRONIC RESPIRATORY FAILURE WITH HYPOXIA (3) Atrial fibrillation Code(s): I48.91 - UNSPECIFIED ATRIAL FIBRILLATION (4) Congestive heart failure with left ventricular systolic dysfunction Code(s): I50.20 - UNSPECIFIED SYSTOLIC (CONGESTIVE) HEART FAILURE (5) Diabetes Code(s): E11.9 - TYPE 2 DIABETES MELLITUS WITHOUT COMPLICATIONS (6) HTN (hypertension) Code(s): I10 - ESSENTIAL (PRIMARY) HYPERTENSION Qualifiers: (7) Hyperlipidemia Code(s): E78.5 - HYPERLIPIDEMIA, UNSPECIFIED Qualifiers: (8) Hypothyroid Code(s): E03.9 - HYPOTHYROIDISM, UNSPECIFIED Qualifiers: (9) Morbid obesity Code(s): E66.01 - MORBID (SEVERE) OBESITY DUE TO EXCESS CALORIES (10) Obstructive sleep apnea Code(s): G47.33 - OBSTRUCTIVE SLEEP APNEA (ADULT) (PEDIATRIC) (11) S/P implantation of automatic cardioverter/defibrillator (AICD) Code(s): Z95.810 - PRESENCE OF AUTOMATIC (IMPLANTABLE) CARDIAC DEFIBRILLATOR (12) Acute on chronic respiratory failure with hypoxemia Code(s): J96.21 - ACUTE AND CHRONIC RESPIRATORY FAILURE WITH HYPOXIA (13) Acute on chronic systolic CHF (congestive heart failure) Code(s): I50.23 - ACUTE ON CHRONIC SYSTOLIC (CONGESTIVE) HEART FAILURE Assessment/Plan IMP ACUTE ON CHRONIC HYPOXEMIC RESPIRATORY FAILURE COPD ACUTE ON CHRONIC CHF CARDIOMYOPATHY S/P AICD ASHD S/P CABG,STENT OSAS HTN IDDM HLD ACUTE ON CHRONIC KIDNEY DISEASE ANEMIA AFIB PLAN DECREASE IV STEROIDS SAME DOSE LASIX INHALED BRONCHODILATORS O2 BIPAP AT NIGHT AND PRN ANTI-TUSSIVES DR CHANDRA
[2017-05-09] MEDS: ATORVASTATIN CA 20 MG TABLET (FP) PO SCH (22:31)
[2017-05-10] MEDS: methylPREDNISolone NA SUCC 40 MG/1 ML VIAL IVPUSH SCH ×2 (03:19→13:12)
[2017-05-10] MEDS: LEVOTHYROXINE NA 25 MCG TABLET (FP) PO SCH (06:04)
[2017-05-10] MEDS: INSULIN SLIDING SCALE (NOVOLOG) 1 VIAL SQ SCH ×4 (06:05→22:04)
[2017-05-10] MEDS: ALBUTEROL SO4 2.5/IPRATROPIUM 0.5 INH SOL 3 ML VIAL.NEB. NEB SCH ×3 (06:50→17:15)
[2017-05-10] MEDS: LOSARTAN POTASSIUM 50 MG TABLET (FP) PO SCH (09:10)
[2017-05-10] MEDS: CARVEDILOL 6.25 MG TABLET (FP) PO SCH ×2 (09:10→21:55)
[2017-05-10] MEDS: PANTOPRAZOLE 40 MG TABLET (FP) PO SCH ×2 (09:10→21:55)
[2017-05-10] MEDS: FUROSEMIDE 40 MG/4 ML INJECTABLE VIAL IVPUSH SCH (09:10)
[2017-05-10] MEDS: GABAPENTIN 400 MG CAPSULE (FP) PO SCH ×2 (09:10→21:55)
[2017-05-10] MEDS: ASPIRIN 81 MG CHEWABLE TABLETS PO SCH (09:10)
[2017-05-10] MEDS: SPIRONOLACTONE 25 MG TABLET (FP) PO SCH (09:10)
[2017-05-10] MEDS: APIXABAN 5 MG TABLET PO SCH ×2 (09:10→21:55)
[2017-05-10 10:02] LABS: ALBUMIN 3.4 g/dl (3.4-5.0); ALK PHOS 66 U/L (45-117); ANION GAP 6 (8-16); BILIRUBIN,TOTAL 1.2 mg/dL (0.2-1.0); BLOOD UREA NITROGEN 40 mg/dL (7-18); CALCIUM 8.8 mg/dL (8.5-10.1); CHLORIDE 95 mmol/L (98-107); CO2 32 mmol/L (21-32); CREATININE 1.3 mg/dL (0.7-1.3); GLUCOSE,RANDOM 273 mg/dL (74-106); POTASSIUM 4.5 mmol/L (3.5-5.1); SGOT/AST 11 U/L (15-37); SGPT/ALT 38 U/L (12-78); SODIUM 133 mmol/L (136-145); TOT PROT 7.2 g/dl (6.4-8.2)
--- NOTE | 2017-05-10 10:08 | PN ---
Progress Note (short form) - Note Progress Note: OOB to chair. Reports that he had a "coughing fit" last night that required him to sit in the chair the rest of the evening. This AM his breathing feels overall better. Some dry cough. Intake & Output 05/07/17 05/08/17 05/09/17 05/10/17 23:59 23:59 23:59 23:59 Intake Total 397 322 8501 240 Output Total 1900 2325 3000 300 Balance -1360 -1845 -1700 -60 Weight 253 lb 15.56 oz 251 lb 1.704 oz 254 lb Last Vital Signs Temp Pulse Resp BP Pulse Ox 98 F 70 20 103/72 92 L 05/10/17 09:12 05/10/17 10:02 05/10/17 09:12 05/10/17 09:12 05/10/17 10:02 Active Medications Acetaminophen (Tylenol -) 650 mg PO Q4H PRN PRN Reason: FEVER OR PAIN Albuterol/Ipratropium (Duoneb -) 1 amp NEB QIDR [facility] Last Admin: 05/10/17 06:50 Dose: 1 amp Apixaban (Eliquis -) 5 mg PO BID [facility] Last Admin: 05/10/17 09:10 Dose: 5 mg Aspirin (Asa -) 81 mg PO DAILY [facility] Last Admin: 05/10/17 09:10 Dose: 81 mg Atorvastatin Calcium (Lipitor -) 20 mg PO HS [facility] Last Admin: 05/09/17 22:31 Dose: 20 mg Carvedilol (Coreg -) 6.25 mg PO BID [facility] Last Admin: 05/10/17 09:10 Dose: 6.25 mg Furosemide (Lasix Injection -) 40 mg IVPUSH DAILY [facility] Last Admin: 05/10/17 09:10 Dose: 40 mg Gabapentin (Neurontin -) 400 mg PO BID [facility] Last Admin: 05/10/17 09:10 Dose: 400 mg Guaifenesin/Codeine Phosphate (Robitussin Ac -) 10 ml PO Q8H PRN PRN Reason: COUGH Insulin Aspart (Novolog Vial Sliding Scale -) 1 vial SQ [facility] PRN Reason: Protocol Last Admin: 05/10/17 06:05 Dose: 4 unit Insulin Detemir (Levemir Vial) 15 units SQ [facility] Last Admin: 05/09/17 22:56 Dose: 15 units Levothyroxine Sodium (Synthroid -) 25 mcg PO DAILY@0700 [facility] Last Admin: 05/10/17 06:04 Dose: 25 mcg Losartan Potassium (Cozaar -) 50 mg PO DAILY [facility] Last Admin: 05/10/17 09:10 Dose: 50 mg Methylprednisolone Sodium Succinate (Solu-Medrol -) 40 mg IVPUSH Q12H [facility] Last Admin: 05/10/17 03:19 Dose: 40 mg Pantoprazole Sodium (Protonix -) 40 mg PO BID [facility] Last Admin: 05/10/17 09:10 Dose: 40 mg Spironolactone (Aldactone -) 25 mg PO DAILY [facility] Last Admin: 05/10/17 09:10 Dose: 25 mg Constitutional: Yes: Awake and alert, NAD Eyes: Yes: WNL HENT: Yes: WNL Neck: Yes: WNL Cardiovascular: Yes: Pulse Irregular, S1, S2 Respiratory: Yes: Basilar Rales/rhonchi, no wheeze Gastrointestinal: Yes: Normal Bowel Sounds, Soft Extremities: Yes: WNL Edema: No Labs: Laboratory Results - last 24 hr 05/09/17 05/09/17 05/09/17 05:39 06:15 12:32 Total Counted 100 Neutrophils % (Manual) 91.8 H* Band Neutrophils % 0.0 Lymphocytes % (Manual) 5.1 L D Monocytes % (Manual) 3 L Eosinophils % (Manual) 0.0 Basophils % (Manual) 0.0 Myelocytes % (Man) 0 Metamyelocytes 0 Hypochromia 1+ Platelet Estimate Normal Polychromasia 3+ Poikilocytosis 1+ Anisocytosis 2+ Microcytosis 2+ Macrocytosis 0 Ovalocytes 2+ POC Glucometer [phone] > 400 05/09/17 17:12 Total Counted Neutrophils % (Manual) Band Neutrophils % Lymphocytes % (Manual) Monocytes % (Manual) Eosinophils % (Manual) Basophils % (Manual) Myelocytes % (Man) Metamyelocytes Hypochromia Platelet Estimate Polychromasia Poikilocytosis Anisocytosis Microcytosis Macrocytosis Ovalocytes POC Glucometer [phone] Problem List - Problems (1) Acute exacerbation of chronic obstructive pulmonary disease (COPD) Code(s): J44.1 - CHRONIC OBSTRUCTIVE PULMONARY DISEASE W (ACUTE) EXACERBATION (2) Chronic hypoxemic respiratory failure Code(s): J96.11 - CHRONIC RESPIRATORY FAILURE WITH HYPOXIA (3) Atrial fibrillation Code(s): I48.91 - UNSPECIFIED ATRIAL FIBRILLATION (4) Congestive heart failure with left ventricular systolic dysfunction Code(s): I50.20 - UNSPECIFIED SYSTOLIC (CONGESTIVE) HEART FAILURE (5) Diabetes Code(s): E11.9 - TYPE 2 DIABETES MELLITUS WITHOUT COMPLICATIONS (6) HTN (hypertension) Code(s): I10 - ESSENTIAL (PRIMARY) HYPERTENSION Qualifiers: (7) Hyperlipidemia Code(s): E78.5 - HYPERLIPIDEMIA, UNSPECIFIED Qualifiers: (8) Hypothyroid Code(s): E03.9 - HYPOTHYROIDISM, UNSPECIFIED Qualifiers: (9) Morbid obesity Code(s): E66.01 - MORBID (SEVERE) OBESITY DUE TO EXCESS CALORIES (10) Obstructive sleep apnea Code(s): G47.33 - OBSTRUCTIVE SLEEP APNEA (ADULT) (PEDIATRIC) (11) S/P implantation of automatic cardioverter/defibrillator (AICD) Code(s): Z95.810 - PRESENCE OF AUTOMATIC (IMPLANTABLE) CARDIAC DEFIBRILLATOR (12) Acute on chronic respiratory failure with hypoxemia Code(s): J96.21 - ACUTE AND CHRONIC RESPIRATORY FAILURE WITH HYPOXIA (13) Acute on chronic systolic CHF (congestive heart failure) Code(s): I50.23 - ACUTE ON CHRONIC SYSTOLIC (CONGESTIVE) HEART FAILURE Assessment/Plan IMP ACUTE ON CHRONIC HYPOXEMIC RESPIRATORY FAILURE COPD ACUTE ON CHRONIC CHF CARDIOMYOPATHY S/P AICD ASHD S/P CABG,STENT OSAS HTN IDDM HLD ACUTE ON CHRONIC KIDNEY DISEASE ANEMIA AFIB PLAN PLAN TO CHANGE TO PREDNISONE TOMORROW LASIX INHALED BRONCHODILATORS O2 BIPAP AT NIGHT AND PRN ANTI-TUSSIVES DR CHANDRA
--- NOTE | 2017-05-10 12:04 | PN ---
Progress Note, Physician History of Present Illness: seen and examined today in nad. excessive coughing overnight. this am feeling better. - Current Medication List Current Medications: Active Medications Acetaminophen (Tylenol -) 650 mg PO Q4H PRN PRN Reason: FEVER OR PAIN Albuterol/Ipratropium (Duoneb -) 1 amp NEB QIDR [facility] Last Admin: 05/10/17 11:59 Dose: Not Given Apixaban (Eliquis -) 5 mg PO BID [facility] Last Admin: 05/10/17 09:10 Dose: 5 mg Aspirin (Asa -) 81 mg PO DAILY [facility] Last Admin: 05/10/17 09:10 Dose: 81 mg Atorvastatin Calcium (Lipitor -) 20 mg PO HS [facility] Last Admin: 05/09/17 22:31 Dose: 20 mg Carvedilol (Coreg -) 6.25 mg PO BID [facility] Last Admin: 05/10/17 09:10 Dose: 6.25 mg Furosemide (Lasix Injection -) 40 mg IVPUSH DAILY [facility] Last Admin: 05/10/17 09:10 Dose: 40 mg Gabapentin (Neurontin -) 400 mg PO BID [facility] Last Admin: 05/10/17 09:10 Dose: 400 mg Guaifenesin/Codeine Phosphate (Robitussin Ac -) 10 ml PO Q8H PRN PRN Reason: COUGH Insulin Aspart (Novolog Vial Sliding Scale -) 1 vial SQ ACHS [facility] PRN Reason: Protocol Last Admin: 05/10/17 06:05 Dose: 4 unit Insulin Detemir (Levemir Vial) 15 units SQ HS [facility] Last Admin: 05/09/17 22:56 Dose: 15 units Levothyroxine Sodium (Synthroid -) 25 mcg PO DAILY@0700 [facility] Last Admin: 05/10/17 06:04 Dose: 25 mcg Losartan Potassium (Cozaar -) 50 mg PO DAILY [facility] Last Admin: 05/10/17 09:10 Dose: 50 mg Methylprednisolone Sodium Succinate (Solu-Medrol -) 40 mg IVPUSH Q12H [facility] Last Admin: 05/10/17 03:19 Dose: 40 mg Pantoprazole Sodium (Protonix -) 40 mg PO BID [facility] Last Admin: 05/10/17 09:10 Dose: 40 mg Spironolactone (Aldactone -) 25 mg PO DAILY [facility] Last Admin: 05/10/17 09:10 Dose: 25 mg - Objective Vital Signs: Vital Signs Temperature 98 F 05/10/17 09:12 Pulse Rate 70 05/10/17 10:02 Respiratory Rate 20 05/10/17 09:12 Blood Pressure 103/72 05/10/17 09:12 O2 Sat by Pulse Oximetry (%) 94 L 05/10/17 11:59 Constitutional: Yes: No Distress, Calm Eyes: Yes: Conjunctiva Clear, EOM Intact, PERRL HENT: Yes: Atraumatic, Normocephalic Neck: Yes: Supple, Trachea Midline Cardiovascular: Yes: Pulse Irregular, S1, S2. No: Regular Rate and Rhythm, Bradycardia, Tachycardia, Bruit, JVD, Gallop, Murmur, Rub, S3, S4, Varicosities Respiratory: Yes: Regular, Diminished, Rales. No: Rhonchi, Wheezes Gastrointestinal: Yes: Normal Bowel Sounds, Soft. No: Distention, Tenderness ...Rectal Exam: Yes: WNL Genitourinary: Yes: WNL Musculoskeletal: Yes: WNL Extremities: Yes: WNL Edema: Yes Edema: LLE: Trace, RLE: Trace Peripheral Pulses: Left Doralis Pedis: 2+, Right Dorsalis Pedis: 2+ Integumentary: Yes: WNL Neurological: Yes: Alert, Oriented Psychiatric: Yes: Alert, Oriented Labs: CBC, BMP 05/10/17 09:31 INR, PTT INR 2.28 (0.82-1.09) H D 05/05/17 14:30 - ....Imaging Chest X-ray: Report Reviewed, Image Reviewed EKG: Report Reviewed, Image Reviewed Other: Report Reviewed, Image Reviewed (tele-Vpaced) Assessment/Plan 61 yo white man with h/o severe systolic CHF-->ICD (followed at [facility] Heart Failure clinic; recent Tc99 pyrophosphate study negarive for amyloid), A-fib, CAD s/p stent placement x 3, CABG x 1, HTN, HLD, DM, COPD, obesity,severe obstructive sleep apnea, who presents with progressive SOB over 3 weeks. SOB-AE COPD, Acute on chronic systolic CHF h/o ICD -volume status improved from yesterday, edema less, rales less but still mild volume overloaded -cont current Lasix dose and titrate as needed -Continue carvedilol, losartan, spironolactone -F/u Is and Os, daily weight, electrolytes, and BUN/Cr. 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 -On apixaban for anticoagulation. HTN- controlled -cont current medical regimen CAD h/o CABG h/o stent -cont ASA, lipitor, coreg -outpatient f/up
[2017-05-10 12:21] LABS: HEMATOCRIT 29.3 % (35.4-49); MCH 27.7 pg (25.7-33.7); MCHC 30.8 g/dl (32.0-35.9); MEAN CELL VOLUME 89.9 fl (80-96); MEAN PLT VOLUME 9.4 fl (7.5-11.1); PLATELET COUNT 208 K/MM3 (134-434); RBC 3.26 M/mm3 (4.00-5.60); RDW 22.5 % (11.9-15.9); WHITE BLOOD COUNT 6.6 K/mm3 (4.0-10.0)
[2017-05-10] MEDS ORDERED: INSULIN (NOVOLOG) ASPART 100 UNITS/ML 10ML VIAL ONE (13:10)
--- NOTE | 2017-05-10 13:50 | PN ---
Physical Exam: SUBJECTIVE: Patient seen and examined in tele/ICU. He reports feeling better but sluggish. He wants to participate in physical therapy before he comes home. PT ordered Patient had episode of coughing overnight, now on Robitussin OBJECTIVE: Clincally improving, back on his home baseline of NC @ 3 liters at bedside, asking for PCP referrals on d/c, will place on d/c packet Vital Signs Period Temp Pulse Resp BP Sys/Villalobos Pulse Ox Last 24 Hr 97.8 F-98 F 69-73 19-22 103-150/64-96 92-95 GENERAL: The patient is awake, alert, and fully oriented, in no acute distress HEAD: Normal with no signs of trauma. EYES: PERRL, extraocular movements intact, sclera anicteric, conjunctiva clear. No ptosis. ENT: Ears normal, nares patent, oropharynx clear without exudates, moist mucous membranes. NECK: Trachea midline, full range of motion, supple. LUNGS: Diminished lung sounds bilaterally, tolerating 3 liters of nasal cannula , mild crackles on right lower base ABDOMEN: Soft, nontender, nondistended, normoactive bowel sounds, no guarding, no rebound, no hepatosplenomegaly, no masses. EXTREMITIES: +1 bilateral lower ext edema NEUROLOGICAL: Normal speech, gait not observed. PSYCH: Normal mood, normal affect. SKIN: Warm, dry, normal turgor, no rashes or lesions noted Laboratory Results - last 24 hr 05/09/17 05/10/17 05/10/17 17:12 09:31 09:31 WBC 6.6 RBC 3.26 L Hgb 9.0 L Hct 29.3 L MCV 89.9 MCH 27.7 MCHC 30.8 L RDW 22.5 H Plt Count 208 MPV 9.4 Neutrophils % No Result Required. Lymphocytes % No Result Required. Sodium 133 L Potassium 4.5 Chloride 95 L Carbon Dioxide 32 Anion Gap 6 L BUN 40 H Creatinine 1.3 Creat Clearance w eGFR 56.50 POC Glucometer [phone] Random Glucose 273 H Calcium 8.8 Total Bilirubin 1.2 H AST 11 L ALT 38 Alkaline Phosphatase 66 Total Protein 7.2 Albumin 3.4 Active Medications Generic Name Dose Route Start Last Admin Trade Name Freq PRN Reason Stop Dose Admin Acetaminophen 650 mg 05/05/17 15:56 Tylenol - PO Q4H PRN FEVER OR PAIN Albuterol/Ipratropium 1 amp 05/06/17 00:00 05/10/17 11:59 Duoneb - NEB Not Given QIDR JOSE Apixaban 5 mg 05/08/17 12:00 05/10/17 09:10 Eliquis - PO 5 mg BID JOSE Administration Aspirin 81 mg 05/06/17 10:00 05/10/17 09:10 Asa - PO 81 mg DAILY JOSE Administration Atorvastatin Calcium 20 mg 05/06/17 22:00 05/09/17 22:31 Lipitor - PO 20 mg HS JOSE Administration Carvedilol 6.25 mg 05/05/17 22:00 05/10/17 09:10 Coreg - PO 6.25 mg BID JOSE Administration Furosemide 40 mg 05/06/17 10:00 05/10/17 09:10 Lasix Injection - IVPUSH 40 mg DAILY JOSE Administration Gabapentin 400 mg 05/05/17 22:00 05/10/17 09:10 Neurontin - PO 400 mg BID JOSE Administration Guaifenesin/Codeine Phosphate 10 ml 05/08/17 14:07 05/10/17 13:12 Robitussin Ac - PO 10 ml Q8H PRN Administration COUGH Insulin Aspart 1 vial 05/09/17 13:04 05/10/17 12:14 Novolog Vial Sliding Scale - SQ 10 unit ACHS JOSE Administration Protocol Insulin Detemir 15 units 05/09/17 13:23 05/09/17 22:56 Levemir Vial SQ 15 units HS JOSE Administration Levothyroxine Sodium 25 mcg 05/06/17 07:00 05/10/17 06:04 Synthroid - PO 25 mcg DAILY@0700 JOSE Administration Losartan Potassium 50 mg 05/06/17 10:00 05/10/17 09:10 Cozaar - PO 50 mg DAILY JOSE Administration Methylprednisolone Sodium Succinate 40 mg 05/09/17 14:00 05/10/17 13:12 Solu-Medrol - IVPUSH 40 mg Q12H JOSE Administration Pantoprazole Sodium 40 mg 05/05/17 22:00 05/10/17 09:10 Protonix - PO 40 mg BID JOSE Administration Spironolactone 25 mg 05/06/17 10:00 05/10/17 09:10 Aldactone - PO 25 mg DAILY JOSE Administration ASSESSMENT/PLAN: Patient is a 61 year old male with a significant past medical history of severe systolic CHF with ICD, atrial fibrillation, CAD, CABG x 1, hypertension, hyperlipidemia, diabetes, COPD, obesity, severe obstructive sleep apnea (on CPAP at home). He presented to the ED with progressive dyspnea over 3 weeks. He states he was evaluated here for pneumonia approximately 2 weeks ago and was treated with antibiotics and sent home. He states his SOB slightly improved at home but over that time but became increasingly worse over the past 3-4 days prior to admission. He denies fevers, chills, abdominal pain, constipation, diarrhea, dysuria or weakness. On exam, he states he feels better today, having less dyspnea. He is home oxygen dependent at 3 liters at home. Imaging: echo on 03/20/17- Severe left global hypokinesia. LV with severe systolic dysfunction, RV-mild reduced function with increased pressure. Mild->mod MR. Chest xray 05/05/2017: interval better aeration of the lung with residual perihilar interstitial opacities and mild atelectatic changes in the right lung base Cardiology: Systolic CHF, acute on chronic Shortness of breath, improving Continue cardiac monitoring, vitals stable, hemodynamically stable on 3 liters, some dyspnea with exertion but overall improving as per patient Trop negative x 3 Monitor intake and output and daily weights Lasix 40 IV daily, titrate as needed On carvedilol, losartan, spironolactone Cardiology following Atrial fibrillation-HR controlled On Coreq 6.25mg BID Eliquis 5mg BID for afib anticoag. Hypertension, chronic Controlled CAD h/o CABG, no stent On ASA 81mg daily Lipitor 20mg @ hs On Coreg 6.25mg BID Pulmonary: COPD, acute on chronic On Solumedrol 40mg q12, transition to PO prednisone tomorrow Duonebs prn Bipap @ hs Pulmonary following, sees Dr. Link as an outpatient Home oxygen dependent Robitussin for cough Endocrine Diabetes/NIDDM/Hyperglycemia Novolog sliding scale adjusted for tighter control and Lantus 20 units HS to better control hyperglycemia while on stds Monitor blood sugars, elevated again today F.E.N. Fluids: tolerating PO Electrolytes: monitor Nutrition: low sodium diet Prophylaxis: GI: Protonix DVT: Eliquis 5mg BID Disposition. Requires inpatient hospitalization. full code. Visit type - Emergency Visit Emergency Visit: Yes ED Registration Date: 05/05/17 Care time: The patient presented to the Emergency Department on the above date and was hospitalized for further evaluation of their emergent condition. - New Patient This patient is new to me today: No - Critical Care Critical Care patient: No - Discharge Referral Referred to [facility] No
[2017-05-10 13:52] LABS: PLATELET ESTIMATE ADEQUATE
[2017-05-10] MEDS: ATORVASTATIN CA 20 MG TABLET (FP) PO SCH (21:55)
[2017-05-10] MEDS: INSULIN DETEMIR 100 UNITS/ML MDV SQ SCH (22:04)
[2017-05-11] MEDS: methylPREDNISolone NA SUCC 40 MG/1 ML VIAL IVPUSH SCH (02:30)
[2017-05-11 06:58] LABS: BASO % 0.1 % (0-2.0); EOS % 0.1 % (0-4.5); HEMATOCRIT 28.1 % (35.4-49); HEMOGLOBIN 8.8 GM/dL (11.7-16.9); LYMPH % 18.8 % (8-40); MCH 27.7 pg (25.7-33.7); MCHC 31.4 g/dl (32.0-35.9); MEAN CELL VOLUME 88.3 fl (80-96); MONO % 4.2 % (3.8-10.2); NEUT % 76.8 % (42.8-82.8); PLATELET COUNT 199 K/MM3 (134-434); RBC 3.18 M/mm3 (4.00-5.60); RDW 22.3 % (11.9-15.9); WHITE BLOOD COUNT 5.3 K/mm3 (4.0-10.0)
[2017-05-11] MEDS: LEVOTHYROXINE NA 25 MCG TABLET (FP) PO SCH (07:03)
[2017-05-11] MEDS: INSULIN SLIDING SCALE (NOVOLOG) 1 VIAL SQ SCH ×4 (07:03→21:13)
[2017-05-11] MEDS ORDERED: INSULIN (NOVOLOG) ASPART 100 UNITS/ML 10ML VIAL ONE (07:04)
[2017-05-11 07:41] LABS: ALBUMIN 3.1 g/dl (3.4-5.0); ANION GAP 6 (8-16); BLOOD UREA NITROGEN 39 mg/dL (7-18); CALCIUM 8.4 mg/dL (8.5-10.1); CHLORIDE 95 mmol/L (98-107); CO2 34 mmol/L (21-32); CREATININE 1.2 mg/dL (0.7-1.3); GLUCOSE,RANDOM 154 mg/dL (74-106); MAGNESIUM 2.3 mg/dL (1.8-2.4); POTASSIUM 4.2 mmol/L (3.5-5.1); SGOT/AST 9 U/L (15-37); SODIUM 135 mmol/L (136-145); TOT PROT 6.7 g/dl (6.4-8.2)
[2017-05-11 07:44] LABS: ALK PHOS 61 U/L (45-117); SGPT/ALT 36 U/L (12-78)
[2017-05-11] MEDS ORDERED: PT OWN MED DRAWER 7, Y5N ONE ×2 (09:50→20:53)
[2017-05-11] MEDS: CARVEDILOL 6.25 MG TABLET (FP) PO SCH ×2 (09:53→21:12)
[2017-05-11] MEDS: LOSARTAN POTASSIUM 50 MG TABLET (FP) PO SCH (09:53)
[2017-05-11] MEDS: GABAPENTIN 400 MG CAPSULE (FP) PO SCH (09:53)
[2017-05-11] MEDS: FUROSEMIDE 40 MG/4 ML INJECTABLE VIAL IVPUSH SCH (09:53)
[2017-05-11] MEDS: PANTOPRAZOLE 40 MG TABLET (FP) PO SCH ×2 (09:54→21:13)
[2017-05-11] MEDS: ASPIRIN 81 MG CHEWABLE TABLETS PO SCH (09:54)
[2017-05-11] MEDS: SPIRONOLACTONE 25 MG TABLET (FP) PO SCH (09:54)
[2017-05-11] MEDS: APIXABAN 5 MG TABLET PO SCH (09:55)
--- NOTE | 2017-05-11 11:19 | PN ---
Progress Note (short form) - Note Progress Note: OOB to chair. Continues to feel better. No acute evnets overnight. Some dry cough. Intake & Output 05/08/17 05/09/17 05/10/17 05/11/17 23:59 23:59 23:59 23:59 Intake Total 480 1300 240 Output Total 2325 3000 2350 Balance -1845 -1700 -2110 Weight 253 lb 15.56 oz 251 lb 1.704 oz 254 lb Last Vital Signs Temp Pulse Resp BP Pulse Ox 97.0 F L 70 20 117/81 93 L 05/11/17 06:00 05/11/17 11:14 05/11/17 06:00 05/11/17 06:00 05/11/17 11:14 Active Medications Acetaminophen (Tylenol -) 650 mg PO Q4H PRN PRN Reason: FEVER OR PAIN Apixaban (Eliquis -) 5 mg PO BID [facility] Last Admin: 05/11/17 09:55 Dose: 5 mg Aspirin (Asa -) 81 mg PO DAILY [facility] Last Admin: 05/11/17 09:54 Dose: 81 mg Atorvastatin Calcium (Lipitor -) 20 mg PO HS [facility] Last Admin: 05/10/17 21:55 Dose: 20 mg Carvedilol (Coreg -) 6.25 mg PO BID [facility] Last Admin: 05/11/17 09:53 Dose: 6.25 mg Furosemide (Lasix Injection -) 40 mg IVPUSH DAILY [facility] Last Admin: 05/11/17 09:53 Dose: 40 mg Gabapentin (Neurontin -) 400 mg PO BID [facility] Last Admin: 05/11/17 09:53 Dose: 400 mg Guaifenesin/Codeine Phosphate (Robitussin Ac -) 10 ml PO Q8H PRN PRN Reason: COUGH Last Admin: 05/10/17 13:12 Dose: 10 ml Insulin Aspart (Novolog Vial Sliding Scale -) [address] [facility] PRN Reason: Protocol Last Admin: 05/11/17 07:03 Dose: 4 unit Insulin Detemir (Levemir Vial) [address] [facility] Last Admin: 05/10/17 22:04 Dose: 20 units Levothyroxine Sodium (Synthroid -) 25 mcg PO DAILY@0700 [facility] Last Admin: 05/11/17 07:03 Dose: 25 mcg Losartan Potassium (Cozaar -) 50 mg PO DAILY [facility] Last Admin: 05/11/17 09:53 Dose: 50 mg Pantoprazole Sodium (Protonix -) 40 mg PO BID [facility] Last Admin: 05/11/17 09:54 Dose: 40 mg Prednisone (Deltasone -) 40 mg PO DAILY [facility] Spironolactone (Aldactone -) 25 mg PO DAILY [facility] Last Admin: 05/11/17 09:54 Dose: 25 mg Constitutional: Yes: Awake and alert, NAD Eyes: Yes: WNL HENT: Yes: WNL Neck: Yes: WNL Cardiovascular: Yes: Pulse Irregular, S1, S2 Respiratory: Yes: Basilar Rales/rhonchi, no wheeze Gastrointestinal: Yes: Normal Bowel Sounds, Soft Extremities: Yes: WNL Edema: No Labs: Laboratory Results - last 24 hr 05/10/17 05/10/17 05/11/17 09:31 16:31 06:30 WBC 6.6 5.3 RBC 3.26 L 3.18 L Hgb 9.0 L 8.8 L Hct 29.3 L 28.1 L MCV 89.9 88.3 MCH 27.7 27.7 MCHC 30.8 L 31.4 L RDW 22.5 H 22.3 H Plt Count 208 199 MPV 9.4 9.0 Total Counted 100 Neutrophils % No Result Required. 76.8 Neutrophils % (Manual) 66.0 D Lymphocytes % No Result Required. 18.8 D Lymphocytes % (Manual) 31.0 D Monocytes % 4.2 Monocytes % (Manual) 2 L Eosinophils % 0.1 D Eosinophils % (Manual) 1.0 D Basophils % 0.1 Platelet Estimate Adequate Sodium Potassium Chloride Carbon Dioxide Anion Gap BUN Creatinine Creat Clearance w eGFR POC Glucometer [phone] Random Glucose Calcium Magnesium Total Bilirubin AST ALT Alkaline Phosphatase Total Protein Albumin 05/11/17 06:30 WBC RBC Hgb Hct MCV MCH MCHC RDW Plt Count MPV Total Counted Neutrophils % Neutrophils % (Manual) Lymphocytes % Lymphocytes % (Manual) Monocytes % Monocytes % (Manual) Eosinophils % Eosinophils % (Manual) Basophils % Platelet Estimate Sodium 135 L Potassium 4.2 Chloride 95 L Carbon Dioxide 34 H Anion Gap 6 L BUN 39 H Creatinine 1.2 Creat Clearance w eGFR > 60 POC Glucometer Random Glucose 154 H D Calcium 8.4 L Magnesium 2.3 Total Bilirubin 1.0 AST 9 L ALT 36 Alkaline Phosphatase 61 Total Protein 6.7 Albumin 3.1 L Problem List - Problems (1) Acute exacerbation of chronic obstructive pulmonary disease (COPD) Code(s): J44.1 - CHRONIC OBSTRUCTIVE PULMONARY DISEASE W (ACUTE) EXACERBATION (2) Chronic hypoxemic respiratory failure Code(s): J96.11 - CHRONIC RESPIRATORY FAILURE WITH HYPOXIA (3) Atrial fibrillation Code(s): I48.91 - UNSPECIFIED ATRIAL FIBRILLATION (4) Congestive heart failure with left ventricular systolic dysfunction Code(s): I50.20 - UNSPECIFIED SYSTOLIC (CONGESTIVE) HEART FAILURE (5) Diabetes Code(s): E11.9 - TYPE 2 DIABETES MELLITUS WITHOUT COMPLICATIONS (6) HTN (hypertension) Code(s): I10 - ESSENTIAL (PRIMARY) HYPERTENSION Qualifiers: (7) Hyperlipidemia Code(s): E78.5 - HYPERLIPIDEMIA, UNSPECIFIED Qualifiers: (8) Hypothyroid Code(s): E03.9 - HYPOTHYROIDISM, UNSPECIFIED Qualifiers: (9) Morbid obesity Code(s): E66.01 - MORBID (SEVERE) OBESITY DUE TO EXCESS CALORIES (10) Obstructive sleep apnea Code(s): G47.33 - OBSTRUCTIVE SLEEP APNEA (ADULT) (PEDIATRIC) (11) S/P implantation of automatic cardioverter/defibrillator (AICD) Code(s): Z95.810 - PRESENCE OF AUTOMATIC (IMPLANTABLE) CARDIAC DEFIBRILLATOR (12) Acute on chronic respiratory failure with hypoxemia Code(s): J96.21 - ACUTE AND CHRONIC RESPIRATORY FAILURE WITH HYPOXIA (13) Acute on chronic systolic CHF (congestive heart failure) Code(s): I50.23 - ACUTE ON CHRONIC SYSTOLIC (CONGESTIVE) HEART FAILURE Assessment/Plan IMP ACUTE ON CHRONIC HYPOXEMIC RESPIRATORY FAILURE COPD ACUTE ON CHRONIC CHF CARDIOMYOPATHY S/P AICD ASHD S/P CABG,STENT OSAS HTN IDDM HLD ACUTE ON CHRONIC KIDNEY DISEASE ANEMIA AFIB PLAN CHANGE TO PREDNISONE LASIX INHALED BRONCHODILATORS O2 BIPAP AT NIGHT AND PRN ANTI-TUSSIVES D/C PLANNING DR CHANDRA
--- NOTE | 2017-05-11 11:27 | PN ---
Progress Note, Physician History of Present Illness: seen and examined today in nad. denies any new complaints. no overnight events. - Current Medication List Current Medications: Active Medications Acetaminophen (Tylenol -) 650 mg PO Q4H PRN PRN Reason: FEVER OR PAIN Apixaban (Eliquis -) 5 mg PO BID [facility] Last Admin: 05/11/17 09:55 Dose: 5 mg Aspirin (Asa -) 81 mg PO DAILY [facility] Last Admin: 05/11/17 09:54 Dose: 81 mg Atorvastatin Calcium (Lipitor -) 20 mg PO HS [facility] Last Admin: 05/10/17 21:55 Dose: 20 mg Carvedilol (Coreg -) 6.25 mg PO BID [facility] Last Admin: 05/11/17 09:53 Dose: 6.25 mg Furosemide (Lasix Injection -) 40 mg IVPUSH DAILY [facility] Last Admin: 05/11/17 09:53 Dose: 40 mg Gabapentin (Neurontin -) 400 mg PO BID [facility] Last Admin: 05/11/17 09:53 Dose: 400 mg Guaifenesin/Codeine Phosphate (Robitussin Ac -) 10 ml PO Q8H PRN PRN Reason: COUGH Last Admin: 05/10/17 13:12 Dose: 10 ml Insulin Aspart (Novolog Vial Sliding Scale -) 1 vial SQ [facility] PRN Reason: Protocol Last Admin: 05/11/17 07:03 Dose: 4 unit Insulin Detemir (Levemir Vial) 20 units SQ [facility] Last Admin: 05/10/17 22:04 Dose: 20 units Levothyroxine Sodium (Synthroid -) 25 mcg PO DAILY@0700 [facility] Last Admin: 05/11/17 07:03 Dose: 25 mcg Losartan Potassium (Cozaar -) 50 mg PO DAILY [facility] Last Admin: 05/11/17 09:53 Dose: 50 mg Methylprednisolone Sodium Succinate (Solu-Medrol -) 40 mg IVPUSH Q12H [facility] Last Admin: 05/11/17 02:30 Dose: 40 mg Pantoprazole Sodium (Protonix -) 40 mg PO BID [facility] Last Admin: 05/11/17 09:54 Dose: 40 mg Spironolactone (Aldactone -) 25 mg PO DAILY [facility] Last Admin: 05/11/17 09:54 Dose: 25 mg - Objective Vital Signs: Vital Signs Temperature 97.0 F L 05/11/17 06:00 Pulse Rate 70 05/11/17 11:14 Respiratory Rate 20 05/11/17 06:00 Blood Pressure 117/81 05/11/17 06:00 O2 Sat by Pulse Oximetry (%) 93 L 05/11/17 11:14 Constitutional: Yes: No Distress, Calm Eyes: Yes: Conjunctiva Clear, EOM Intact, PERRL HENT: Yes: Atraumatic, Normocephalic Neck: Yes: Supple, Trachea Midline Cardiovascular: Yes: Pulse Irregular, S1, S2. No: Bradycardia, Tachycardia, Bruit, JVD, Gallop, Murmur, Rub, S3, S4, Varicosities Respiratory: Yes: Regular, Diminished, Rales. No: Rhonchi, SOB, Wheezes Gastrointestinal: Yes: Normal Bowel Sounds, Soft. No: Distention, Tenderness Edema: Yes Edema: LLE: 1+, RLE: 1+ Peripheral Pulses: Left Doralis Pedis: 2+, Right Dorsalis Pedis: 2+ Neurological: Yes: Alert, Oriented Psychiatric: Yes: Alert, Oriented Labs: CBC, BMP 05/11/17 06:30 05/11/17 06:30 INR, PTT INR 2.28 (0.82-1.09) H D 05/05/17 14:30 - ....Imaging Chest X-ray: Report Reviewed, Image Reviewed EKG: Report Reviewed, Image Reviewed Other: Report Reviewed, Image Reviewed (tele-AFib, VPaced, PVCs) Assessment/Plan 61 yo white man with h/o severe systolic CHF-->ICD (followed at [facility] Heart Failure clinic; recent Tc99 pyrophosphate study negarive for amyloid), A-fib, CAD s/p stent placement x 3, CABG x 1, HTN, HLD, DM, COPD, obesity,severe obstructive sleep apnea, who presents with progressive SOB over 3 weeks. SOB-AE COPD, Acute on chronic systolic CHF h/o ICD -clinically more volume overloaded today, edema not changed from yesterday, more rales today -cont current Lasix dose and titrate as needed -discussed with pt to maintain 1L/24hr fluid restriction -Continue carvedilol, losartan, spironolactone -F/u Is and Os, daily weight, electrolytes, and BUN/Cr. -F/u with marketing team lead Atrial fibrillation-HR controlled -On carvedilolol for HR and CHF. -On apixaban for anticoagulation. HTN- controlled -cont current medical regimen CAD h/o CABG h/o stent -cont ASA, lipitor, coreg -outpatient f/up
[2017-05-11] MEDS ORDERED: FUROSEMIDE INJECTION 100 MG in SODIUM CHLORIDE 40 ML IVPB SCH (17:15)
--- NOTE | 2017-05-11 17:17 | PN ---
Physical Exam: SUBJECTIVE: Patient seen and examined oob to chair. Voices no complaints. Aware he needs to restrict fluids. OBJECTIVE: Vital Signs Period Temp Pulse Resp BP Sys/Villalobos Pulse Ox Last 24 Hr 97.0 F-98.1 F 70-74 18-20 99-119/59-87 91-97 GENERAL: The patient is awake, alert, and fully oriented, in no acute distress. LUNGS: Bilateral crackles detention up HEART: Regular rate and rhythm, S1, S2 without murmur, rub or gallop. ABDOMEN: Soft, nontender, nondistended, normoactive bowel sounds, no guarding, no rebound LOWER EXTREMITIES: 2+ pulses, warm, well-perfused, 3+ bilateral tense edema NEUROLOGICAL: Cranial nerves II through XII grossly intact. Normal speech, gait not observed. Laboratory Results - last 24 hr 05/10/17 05/10/17 05/11/17 16:31 22:04 06:30 WBC 5.3 RBC 3.18 L Hgb 8.8 L Hct 28.1 L MCV 88.3 MCH 27.7 MCHC 31.4 L RDW 22.3 H Plt Count 199 MPV 9.0 Neutrophils % 76.8 Lymphocytes % 18.8 D Monocytes % 4.2 Eosinophils % 0.1 D Basophils % 0.1 Sodium Potassium Chloride Carbon Dioxide Anion Gap BUN Creatinine Creat Clearance w eGFR POC Glucometer [phone] Random Glucose Calcium Magnesium Total Bilirubin AST ALT Alkaline Phosphatase Total Protein Albumin 05/11/17 06:30 WBC RBC Hgb Hct MCV MCH MCHC RDW Plt Count MPV Neutrophils % Lymphocytes % Monocytes % Eosinophils % Basophils % Sodium 135 L Potassium 4.2 Chloride 95 L Carbon Dioxide 34 H Anion Gap 6 L BUN 39 H Creatinine 1.2 Creat Clearance w eGFR > 60 POC Glucometer Random Glucose 154 H D Calcium 8.4 L Magnesium 2.3 Total Bilirubin 1.0 AST 9 L ALT 36 Alkaline Phosphatase 61 Total Protein 6.7 Albumin 3.1 L Active Medications Generic Name Dose Route Start Last Admin Trade Name Freq PRN Reason Stop Dose Admin Acetaminophen 650 mg 05/05/17 15:56 Tylenol - PO Q4H PRN FEVER OR PAIN Apixaban 5 mg 05/08/17 12:00 05/11/17 09:55 Eliquis - PO 5 mg BID JOSE Administration Aspirin 81 mg 05/06/17 10:00 05/11/17 09:54 Asa - PO 81 mg DAILY JOSE Administration Atorvastatin Calcium 20 mg 05/06/17 22:00 05/10/17 21:55 Lipitor - PO 20 mg HS JOSE Administration Carvedilol 6.25 mg 05/05/17 22:00 05/11/17 09:53 Coreg - PO 6.25 mg BID JOSE Administration Furosemide 40 mg 05/06/17 10:00 05/11/17 09:53 Lasix Injection - IVPUSH 40 mg DAILY JOSE Administration Gabapentin 400 mg 05/05/17 22:00 05/11/17 09:53 Neurontin - PO 400 mg BID JOSE Administration Furosemide 100 mg/ Sodium 50 mls @ 1 mls/hr 05/11/17 17:15 Chloride IVPB TITR JOSE 2 MG/HR Insulin Aspart 1 vial 05/09/17 13:04 05/11/17 11:34 Novolog Vial Sliding Scale - SQ 12 unit ACHS JOSE Administration Protocol Insulin Detemir 20 units 05/10/17 14:16 05/10/17 22:04 Levemir Vial SQ 20 units HS JOSE Administration Levothyroxine Sodium 25 mcg 05/06/17 07:00 05/11/17 07:03 Synthroid - PO 25 mcg DAILY@0700 JOSE Administration Losartan Potassium 50 mg 05/06/17 10:00 05/11/17 09:53 Cozaar - PO 50 mg DAILY JOSE Administration Pantoprazole Sodium 40 mg 05/05/17 22:00 05/11/17 09:54 Protonix - PO 40 mg BID JOSE Administration Prednisone 40 mg 05/12/17 10:00 Deltasone - PO DAILY JOSE Spironolactone 25 mg 05/06/17 10:00 05/11/17 09:54 Aldactone - PO 25 mg DAILY JOSE Administration ASSESSMENT/PLAN 61 year-old male with a PMH significant for HTN, HLD, biventricular heart failure s/p PPM s/p ICD, CAD s/p stent x 3 s/p CABG x 1, atrial fibrillation on Eliquis, COPD on home O2, and IDDM. Admitted for heart failure and COPD exacerbations and acute on chronic hypoxemic respiratory failure. Acute on chronic hypoxemic respiratory failure Acute on chronic COPD exacerbation --back to baseline home O2 level, 3L by nasal cannula satting 93% --duonebs --tapering steroids --ordered pre post evaluation Acute on chronic biventricular heart failure --crackles detention up bilaterally --net negative fluid balances over 5 days, but weight has not changed; have to question amount of fluids/salt being ingested --fluid restrict 1L q24h, low sodium intake; needs to be reinforced with patient daily --start Lasix drip @ 2mg/hr --continue spironolactone --strict I&Os, daily weights --cxr in am Coronary artery disease s/p stents s/p CABG --continue carvedilol, Lipitor Atrial fibrillation --paced rhythm, rate in 70's --continue Eliquis IDDM --Levemir 20mg qhs --Novolog sliding scale coverage FEN Fluids: PO intake adequate Electrolytes: replete as indicated Nutrition: diabetic low sodium DVT prophylaxis: on Eliquis Physical therapy evaluation Dispo: continues to require inpatient care. Full code. Visit type - Emergency Visit Emergency Visit: Yes ED Registration Date: 05/05/17 Care time: The patient presented to the Emergency Department on the above date and was hospitalized for further evaluation of their emergent condition. - New Patient This patient is new to me today: Yes Date on this admission: 05/11/17 - Critical Care Critical Care patient: No
[2017-05-11] MEDS: ALBUTEROL SO4 2.5/IPRATROPIUM 0.5 INH SOL 3 ML VIAL.NEB. NEB SCH (18:01)
[2017-05-11] MEDS: POTASSIUM CHLORIDE TABS 20 MEQ TABLET.ER (FP) PO SCH (21:11)
[2017-05-11] MEDS: FUROSEMIDE 100 MG/10 ML INJECTABLE VIAL IVPB SCH (21:12)
[2017-05-11] MEDS: INSULIN DETEMIR 100 UNITS/ML MDV SQ SCH (21:12)
[2017-05-11] MEDS: ATORVASTATIN CA 20 MG TABLET (FP) PO SCH (22:00)
[2017-05-12] MEDS: ALBUTEROL SO4 2.5/IPRATROPIUM 0.5 INH SOL 3 ML VIAL.NEB. NEB SCH ×4 (00:05→17:08)
[2017-05-12] MEDS: APIXABAN 5 MG TABLET PO SCH ×3 (02:10→22:16)
[2017-05-12] MEDS: GABAPENTIN 400 MG CAPSULE (FP) PO SCH ×3 (02:11→22:16)
[2017-05-12] MEDS: POTASSIUM CHLORIDE TABS 20 MEQ TABLET.ER (FP) PO SCH (02:11)
--- NOTE | 2017-05-12 06:05 | PN ---
Physical Exam: SUBJECTIVE: Patient seen and examined oob to chair. OBJECTIVE: Vital Signs Period Temp Pulse Resp BP Sys/Villalobos Pulse Ox Last 24 Hr 97.2 F-98.3 F 64-76 18-21 84-117/50-82 93-95 GENERAL: The patient is awake, alert, and fully oriented, in no acute distress. LUNGS: Bibasilar crackles, improved HEART: Regular rate and rhythm, S1, S2 without murmur, rub or gallop. ABDOMEN: Soft, nontender, nondistended, normoactive bowel sounds, no guarding, no rebound LOWER EXTREMITIES: 2+ pulses, warm, well-perfused, 3+ bilateral edema, mildly improved NEUROLOGICAL: Cranial nerves II through XII grossly intact. Normal speech, gait not observed. Laboratory Results - last 24 hr 05/07/17 05/07/17 05/07/17 05:46 12:09 17:28 WBC RBC Hgb Hct MCV MCH MCHC RDW Plt Count MPV Neutrophils % Lymphocytes % Monocytes % Eosinophils % Basophils % Sodium Potassium Chloride Carbon Dioxide Anion Gap BUN Creatinine Creat Clearance w eGFR POC Glucometer 230.92000 296.22464 [phone] Random Glucose Calcium Magnesium Total Bilirubin AST ALT Alkaline Phosphatase Total Protein Albumin 05/08/17 05/08/17 05/08/17 12:24 16:33 21:09 WBC RBC Hgb Hct MCV MCH MCHC RDW Plt Count MPV Neutrophils % Lymphocytes % Monocytes % Eosinophils % Basophils % Sodium Potassium Chloride Carbon Dioxide Anion Gap BUN Creatinine Creat Clearance w eGFR POC Glucometer 292.34429 231.77067 [phone] Random Glucose Calcium Magnesium Total Bilirubin AST ALT Alkaline Phosphatase Total Protein Albumin 05/09/17 05/10/17 05/10/17 22:52 06:00 12:10 WBC RBC Hgb Hct MCV MCH MCHC RDW Plt Count MPV Neutrophils % Lymphocytes % Monocytes % Eosinophils % Basophils % Sodium Potassium Chloride Carbon Dioxide Anion Gap BUN Creatinine Creat Clearance w eGFR POC Glucometer 229.96488 199.66445 342.10179 Random Glucose Calcium Magnesium Total Bilirubin AST ALT Alkaline Phosphatase Total Protein Albumin 05/10/17 05/11/17 05/11/17 22:04 06:30 06:30 WBC 5.3 RBC 3.18 L Hgb 8.8 L Hct 28.1 L MCV 88.3 MCH 27.7 MCHC 31.4 L RDW 22.3 H Plt Count 199 MPV 9.0 Neutrophils % 76.8 Lymphocytes % 18.8 D Monocytes % 4.2 Eosinophils % 0.1 D Basophils % 0.1 Sodium 135 L Potassium 4.2 Chloride 95 L Carbon Dioxide 34 H Anion Gap 6 L BUN 39 H Creatinine 1.2 Creat Clearance w eGFR > 60 POC Glucometer 246.84831 Random Glucose 154 H D Calcium 8.4 L Magnesium 2.3 Total Bilirubin 1.0 AST 9 L ALT 36 Alkaline Phosphatase 61 Total Protein 6.7 Albumin 3.1 L Active Medications Generic Name Dose Route Start Last Admin Trade Name Freq PRN Reason Stop Dose Admin Acetaminophen 650 mg 05/05/17 15:56 Tylenol - PO Q4H PRN FEVER OR PAIN Albuterol/Ipratropium 1 amp 05/11/17 18:00 05/12/17 00:05 Duoneb - NEB 1 amp QIDR JOSE Administration Apixaban 5 mg 05/08/17 12:00 05/12/17 02:10 Eliquis - PO 5 mg BID JOSE Administration Aspirin 81 mg 05/06/17 10:00 05/11/17 09:54 Asa - PO 81 mg DAILY JOSE Administration Atorvastatin Calcium 20 mg 05/06/17 22:00 05/11/17 22:00 Lipitor - PO 20 mg HS JOSE Administration Carvedilol 6.25 mg 05/05/17 22:00 05/11/17 21:12 Coreg - PO 6.25 mg BID JOSE Administration Furosemide 100 mg 05/11/17 19:00 05/11/17 21:12 Lasix Injection - IVPB 100 mg DAILY JOSE Administration Gabapentin 400 mg 05/05/17 22:00 05/12/17 02:11 Neurontin - PO Not Given BID JOSE Insulin Aspart 1 vial 05/09/17 13:04 05/11/17 21:13 Novolog Vial Sliding Scale - SQ 6 unit ACHS JOSE Administration Protocol Insulin Detemir 20 units 05/10/17 14:16 05/11/17 21:12 Levemir Vial SQ 20 units HS JOSE Administration Levothyroxine Sodium 25 mcg 05/06/17 07:00 05/11/17 07:03 Synthroid - PO 25 mcg DAILY@0700 JOSE Administration Losartan Potassium 50 mg 05/06/17 10:00 05/11/17 09:53 Cozaar - PO 50 mg DAILY JOSE Administration Pantoprazole Sodium 40 mg 05/05/17 22:00 05/11/17 21:13 Protonix - PO 40 mg BID JOSE Administration Prednisone 40 mg 05/12/17 10:00 Deltasone - PO DAILY JOSE Spironolactone 25 mg 05/06/17 10:00 05/11/17 09:54 Aldactone - PO 25 mg DAILY JOSE Administration ASSESSMENT/PLAN 61 year-old male with a PMH significant for HTN, HLD, biventricular heart failure s/p PPM s/p ICD, CAD s/p stent x 3 s/p CABG x 1, atrial fibrillation on Eliquis, COPD on home O2, and IDDM. Admitted for heart failure and COPD exacerbations, and acute on chronic hypoxemic respiratory failure. Acute on chronic hypoxemic respiratory failure Acute on chronic COPD exacerbation --back to baseline home O2 level --duonebs --tapering steroids --ordered pre post evaluation ordered Acute on chronic biventricular heart failure --down 3kg since yesterday, continue fluid restriction --continue Lasix IV, spironolactone --strict I&Os, daily weights Coronary artery disease s/p stents s/p CABG --continue carvedilol, Lipitor Atrial fibrillation --paced rhythm, rate in 70's --continue Eliquis IDDM --Levemir 20mg qhs --Novolog sliding scale coverage FEN Fluids: PO intake adequate Electrolytes: replete as indicated Nutrition: diabetic low sodium DVT prophylaxis: on Eliquis Physical therapy evaluation Dispo: continues to require inpatient care. Full code. Visit type - Emergency Visit Emergency Visit: Yes ED Registration Date: 05/05/17 Care time: The patient presented to the Emergency Department on the above date and was hospitalized for further evaluation of their emergent condition. - New Patient This patient is new to me today: No - Critical Care Critical Care patient: No
[2017-05-12 06:20] LABS: BASO % 0.2 % (0-2.0); EOS % 0.8 % (0-4.5); HEMATOCRIT 31.1 % (35.4-49); HEMOGLOBIN 9.8 GM/dL (11.7-16.9); LYMPH % 22.8 % (8-40); MCHC 31.5 g/dl (32.0-35.9); MEAN PLT VOLUME 9.1 fl (7.5-11.1); MONO % 12.3 % (3.8-10.2); NEUT % 63.9 % (42.8-82.8); PLATELET COUNT 244 K/MM3 (134-434); RDW 22.2 % (11.9-15.9); WHITE BLOOD COUNT 7.5 K/mm3 (4.0-10.0)
[2017-05-12 06:43] LABS: ALBUMIN 3.4 g/dl (3.4-5.0); ALK PHOS 68 U/L (45-117); ANION GAP 9 (8-16); BILIRUBIN,TOTAL 1.1 mg/dL (0.2-1.0); BLOOD UREA NITROGEN 43 mg/dL (7-18); CALCIUM 8.3 mg/dL (8.5-10.1); CHLORIDE 93 mmol/L (98-107); CO2 38 mmol/L (21-32); CREATININE 1.4 mg/dL (0.7-1.3); GLUCOSE,RANDOM 94 mg/dL (74-106); MAGNESIUM 2.1 mg/dL (1.8-2.4); POTASSIUM 3.6 mmol/L (3.5-5.1); SGOT/AST 14 U/L (15-37); SGPT/ALT 40 U/L (12-78); SODIUM 140 mmol/L (136-145); TOT PROT 7.2 g/dl (6.4-8.2)
[2017-05-12] MEDS: INSULIN SLIDING SCALE (NOVOLOG) 1 VIAL SQ SCH ×4 (07:07→22:16)
[2017-05-12] MEDS: LEVOTHYROXINE NA 25 MCG TABLET (FP) PO SCH (07:08)
[2017-05-12] MEDS: LOSARTAN POTASSIUM 50 MG TABLET (FP) PO SCH (09:25)
[2017-05-12] MEDS: ASPIRIN 81 MG CHEWABLE TABLETS PO SCH (09:25)
[2017-05-12] MEDS: CARVEDILOL 6.25 MG TABLET (FP) PO SCH ×2 (09:25→22:15)
[2017-05-12] MEDS: predniSONE 20 MG TABLET (UD) PO SCH (09:26)
[2017-05-12] MEDS: FUROSEMIDE 100 MG/10 ML INJECTABLE VIAL IVPB SCH (09:26)
[2017-05-12] MEDS: PANTOPRAZOLE 40 MG TABLET (FP) PO SCH ×2 (09:27→22:17)
--- NOTE | 2017-05-12 09:44 | PN ---
Progress Note, Physician Chief Complaint: Pt OOB in chair; feels his breathing has improved. History of Present Illness: This is a 61 yo white man with h/o severe systolic CHF-->ICD (followed at [facility] Heart Failure clinic; recent Tc99 pyrophosphate study negarive for amyloid), A- fib, CAD s/p stent placement x 3, CABG x 1, HTN, HLD, DM, COPD, obesity,severe obstructive sleep apnea, who presents with progressive SOB over 3 weeks. He states he was evaluated here for CAP approximately 2 weeks ago and was treated with IV abx and discharged. He states his SOB slightly improved over that time but became increasingly worse over the past 3-4 days. He states his exercise tolerance has decreased to approximately 1 black and is not able to ascend more than 2-3 stairs. He is unable to walk up inclines. He states he has been "bloated" for the past week. His gave his extra Lasix dose recommended by his centrifugal station operator with 11# weight loss after 1 dose. She did not give him any other doses due to recent HARMAN. He denies fevers, chills, abdominal pain, constipation, diarrhea, dysuria or weakness. He states his AICD has not fired. - Current Medication List Current Medications: Active Medications Acetaminophen (Tylenol -) 650 mg PO Q4H PRN PRN Reason: FEVER OR PAIN Albuterol/Ipratropium (Duoneb -) 1 amp NEB QIDR [facility] Last Admin: 05/12/17 06:12 Dose: 1 amp Apixaban (Eliquis -) 5 mg PO BID [facility] Last Admin: 05/12/17 02:10 Dose: 5 mg Aspirin (Asa -) 81 mg PO DAILY [facility] Last Admin: 05/11/17 09:54 Dose: 81 mg Atorvastatin Calcium (Lipitor -) 20 mg PO HS [facility] Last Admin: 05/11/17 22:00 Dose: 20 mg Carvedilol (Coreg -) 6.25 mg PO BID [facility] Last Admin: 05/11/17 21:12 Dose: 6.25 mg Furosemide (Lasix Injection -) 100 mg IVPB DAILY [facility] Last Admin: 05/11/17 21:12 Dose: 100 mg Gabapentin (Neurontin -) 400 mg PO BID [facility] Last Admin: 05/12/17 02:11 Dose: Not Given Insulin Aspart (Novolog Vial Sliding Scale -) 1 vial SQ ACHS [facility] PRN Reason: Protocol Last Admin: 05/12/17 07:07 Dose: Not Given Insulin Detemir (Levemir Vial) 20 units SQ HS [facility] Last Admin: 05/11/17 21:12 Dose: 20 units Levothyroxine Sodium (Synthroid -) 25 mcg PO DAILY@0700 [facility] Last Admin: 05/12/17 07:08 Dose: 25 mcg Losartan Potassium (Cozaar -) 50 mg PO DAILY [facility] Last Admin: 05/11/17 09:53 Dose: 50 mg Pantoprazole Sodium (Protonix -) 40 mg PO BID [facility] Last Admin: 05/11/17 21:13 Dose: 40 mg Prednisone (Deltasone -) 40 mg PO DAILY [facility] Spironolactone (Aldactone -) 25 mg PO DAILY [facility] Last Admin: 05/11/17 09:54 Dose: 25 mg - Objective Vital Signs: Vital Signs Temperature 97.3 F L 05/12/17 06:31 Pulse Rate 71 05/12/17 08:36 Respiratory Rate 17 05/12/17 06:31 Blood Pressure 92/63 05/12/17 06:31 O2 Sat by Pulse Oximetry (%) 96 05/12/17 08:36 Constitutional: Yes: Calm Eyes: Yes: WNL HENT: Yes: WNL Neck: Yes: WNL Cardiovascular: Yes: Pulse Irregular, S1 (varies in intensity) Respiratory: Yes: Diminished Gastrointestinal: Yes: Soft, Abdomen, Obese ...Rectal Exam: Yes: Deferred Genitourinary: Yes: Anuria Breast(s): Yes: WNL Musculoskeletal: Yes: Muscle Weakness Extremities: Yes: Cool Edema: Yes Edema: LLE: Trace, RLE: Trace Peripheral Pulses WNL: Yes Integumentary: Yes: WNL Neurological: Yes: Alert, Oriented, Weakness Psychiatric: Yes: WNL Labs: CBC, BMP 05/12/17 05:15 05/12/17 05:15 INR, PTT INR 2.28 (0.82-1.09) H D 05/05/17 14:30 - ....Imaging Other: Image Reviewed (telemetry: ventricular pacing) Problem List - Problems (1) Acute exacerbation of chronic obstructive pulmonary disease (COPD) Assessment/Plan: CXR: promininent zackary; no acute infiltrate. Continue present medications; furosemide prn IV. Code(s): J44.1 - CHRONIC OBSTRUCTIVE PULMONARY DISEASE W (ACUTE) EXACERBATION (2) Acute on chronic systolic CHF (congestive heart failure) Assessment/Plan: Continue carvedilol, losartan, spironolactone(increase to 50 mg daily), furosemde IV. F/u Is and Os, daily weight, electrolytes, and BUN/Cr. Code(s): I50.23 - ACUTE ON CHRONIC SYSTOLIC (CONGESTIVE) HEART FAILURE (3) Renal insufficiency Code(s): N28.9 - DISORDER OF KIDNEY AND URETER, UNSPECIFIED (4) Atrial fibrillation Assessment/Plan: On carvedilolol for HR and CHF. On apixaban for anticoagulation. Code(s): I48.91 - UNSPECIFIED ATRIAL FIBRILLATION (5) Diabetes Code(s): E11.9 - TYPE 2 DIABETES MELLITUS WITHOUT COMPLICATIONS (6) HTN (hypertension) Code(s): I10 - ESSENTIAL (PRIMARY) HYPERTENSION Qualifiers: (7) Hyperlipidemia Code(s): E78.5 - HYPERLIPIDEMIA, UNSPECIFIED Qualifiers: (8) Hypothyroid Code(s): E03.9 - HYPOTHYROIDISM, UNSPECIFIED Qualifiers: (9) Morbid obesity Assessment/Plan: dietary education; pt has lost a few pounds through more careful food choice and portion control. Code(s): E66.01 - MORBID (SEVERE) OBESITY DUE TO EXCESS CALORIES (10) Obstructive sleep apnea Code(s): G47.33 - OBSTRUCTIVE SLEEP APNEA (ADULT) (PEDIATRIC) (11) S/P implantation of automatic cardioverter/defibrillator (AICD) Code(s): Z95.810 - PRESENCE OF AUTOMATIC (IMPLANTABLE) CARDIAC DEFIBRILLATOR
[2017-05-12] MEDS: SPIRONOLACTONE 25 MG TABLET (FP) PO SCH (11:27)
--- NOTE | 2017-05-12 15:08 | PN ---
Progress Note (short form) - Note Progress Note: PULMONARY States breathing continues to improve. +nonproductive cough, no wheezing. No fevers or chills. Last Vital Signs Temp Pulse Resp BP Pulse Ox 98.2 F 80 20 100/70 96 05/12/17 13:19 05/12/17 13:19 05/12/17 13:19 05/12/17 13:19 05/12/17 14:16 Intake & Output 05/09/17 05/10/17 05/11/17 05/12/17 23:59 23:59 23:59 23:59 Intake Total 1300 240 240 Output Total 3000 2350 1350 1999 Balance -1700 -2110 -1110 -1999 Weight 113.9 kg 115.212 kg 112.945 kg Gen: NAD at rest Heart: RRR Lung: decreased breath sounds at the bases Abd: soft, nontender Ext: + edema CBC, BMP 05/12/17 05:15 05/12/17 05:15 Active Medications Acetaminophen (Tylenol -) 650 mg PO Q4H PRN PRN Reason: FEVER OR PAIN Albuterol/Ipratropium (Duoneb -) 1 amp NEB QIDR [facility] Last Admin: 05/12/17 13:10 Dose: 1 amp Apixaban (Eliquis -) 5 mg PO BID [facility] Last Admin: 05/12/17 11:27 Dose: 5 mg Aspirin (Asa -) 81 mg PO DAILY [facility] Last Admin: 05/12/17 09:25 Dose: 81 mg Atorvastatin Calcium (Lipitor -) [address] [facility] Last Admin: 05/11/17 22:00 Dose: 20 mg Carvedilol (Coreg -) 6.25 mg PO BID [facility] Last Admin: 05/12/17 09:25 Dose: 6.25 mg Furosemide (Lasix Injection -) 100 mg IVPB DAILY [facility] Last Admin: 05/12/17 09:26 Dose: 100 mg Gabapentin (Neurontin -) 400 mg PO BID [facility] Last Admin: 05/12/17 09:26 Dose: 400 mg Insulin Aspart (Novolog Vial Sliding Scale -) 1 vial SQ [facility] PRN Reason: Protocol Last Admin: 05/12/17 11:53 Dose: 6 unit Insulin Detemir (Levemir Vial) [address] [facility] Last Admin: 05/11/17 21:12 Dose: 20 units Levothyroxine Sodium (Synthroid -) 25 mcg PO DAILY@0700 [facility] Last Admin: 05/12/17 07:08 Dose: 25 mcg Losartan Potassium (Cozaar -) 50 mg PO DAILY [facility] Last Admin: 05/12/17 09:25 Dose: 50 mg Pantoprazole Sodium (Protonix -) 40 mg PO BID [facility] Last Admin: 05/12/17 09:27 Dose: 40 mg Prednisone (Deltasone -) 40 mg PO DAILY [facility] Last Admin: 05/12/17 09:26 Dose: 40 mg Spironolactone (Aldactone -) 50 mg PO DAILY [facility] Last Admin: 05/12/17 11:27 Dose: 50 mg A/P Acute on Chronic Hypoxic Respiratory Failure Acute on Chronic Systolic Heart Failure COPD CAD s/p CABG Acute on Chronic Renal Failure Atrial Fibrillation SHELDON HTN DM Hyperlipidemia - continue lasix, aldactone - monitor urine output, creatinine - prednisone taper - inhaled bronchodilators - O2 to keep SpO2 >90% - BiPAP at night and PRN during day - rate controlled - continue anticoagulation - PT
[2017-05-12] MEDS ORDERED: PT OWN MED DRAWER 7, Y5N ONE (22:14)
[2017-05-12] MEDS: ATORVASTATIN CA 20 MG TABLET (FP) PO SCH (22:16)
[2017-05-12] MEDS: INSULIN DETEMIR 100 UNITS/ML MDV SQ SCH (22:16)
[2017-05-13] MEDS: ALBUTEROL SO4 2.5/IPRATROPIUM 0.5 INH SOL 3 ML VIAL.NEB. NEB SCH ×5 (06:00→23:47)
[2017-05-13] MEDS: LEVOTHYROXINE NA 25 MCG TABLET (FP) PO SCH (07:16)
[2017-05-13] MEDS: INSULIN SLIDING SCALE (NOVOLOG) 1 VIAL SQ SCH ×4 (07:16→23:27)
[2017-05-13] MEDS ORDERED: PT OWN MED DRAWER 7, Y5N ONE ×2 (08:05→09:25)
[2017-05-13] MEDS: predniSONE 20 MG TABLET (UD) PO SCH (09:04)
[2017-05-13] MEDS: PANTOPRAZOLE 40 MG TABLET (FP) PO SCH ×2 (09:04→22:00)
[2017-05-13] MEDS: LOSARTAN POTASSIUM 50 MG TABLET (FP) PO SCH (09:05)
[2017-05-13] MEDS: CARVEDILOL 6.25 MG TABLET (FP) PO SCH ×2 (09:05→21:13)
[2017-05-13] MEDS: GABAPENTIN 400 MG CAPSULE (FP) PO SCH ×2 (09:05→22:00)
[2017-05-13] MEDS: APIXABAN 5 MG TABLET PO SCH ×2 (09:05→21:13)
[2017-05-13] MEDS: ASPIRIN 81 MG CHEWABLE TABLETS PO SCH (09:05)
[2017-05-13] MEDS: SPIRONOLACTONE 25 MG TABLET (FP) PO SCH (09:43)
[2017-05-13] MEDS ORDERED: FUROSEMIDE 40 MG/4 ML INJECTABLE VIAL IVPUSH SCH (10:00)
--- NOTE | 2017-05-13 10:24 | PN ---
Physical Exam: SUBJECTIVE: Patient seen and examined OBJECTIVE: Vital Signs Period Temp Pulse Resp BP Sys/Villalobos Pulse Ox Last 24 Hr 97.6 F-98.2 F 70-82 20-23 82-107/52-73 92-96 GENERAL: The patient is awake, alert, and fully oriented, in no acute distress. LUNGS: Mild bibasilar crackles HEART: Regular rate and rhythm, S1, S2 ABDOMEN: Soft, nontender, nondistended, normoactive bowel sounds, no guarding, no rebound EXTREMITIES: 2+ pulses, warm, well-perfused, 2+ edema NEUROLOGICAL: Cranial nerves II through XII grossly intact. Normal speech, steady gait observed Laboratory Results - last 24 hr 05/11/17 05/11/17 05/11/17 06:57 11:27 16:43 POC Glucometer 195.23264 354.16058 291.64976 05/11/17 05/12/17 05/12/17 20:43 11:52 16:50 POC Glucometer 204.03486 215.48867 191.69202 05/12/17 21:58 POC Glucometer 290.07519 Active Medications Generic Name Dose Route Start Last Admin Trade Name Freq PRN Reason Stop Dose Admin Acetaminophen 650 mg 05/05/17 15:56 Tylenol - PO Q4H PRN FEVER OR PAIN Albuterol/Ipratropium 1 amp 05/11/17 18:00 05/13/17 06:00 Duoneb - NEB Not Given QIDR JOSE Apixaban 5 mg 05/08/17 12:00 05/13/17 09:05 Eliquis - PO 5 mg BID JOSE Administration Aspirin 81 mg 05/06/17 10:00 05/13/17 09:05 Asa - PO 81 mg DAILY JOSE Administration Atorvastatin Calcium 20 mg 05/06/17 22:00 05/12/17 22:16 Lipitor - PO 20 mg HS JOSE Administration Carvedilol 6.25 mg 05/05/17 22:00 05/13/17 09:05 Coreg - PO 6.25 mg BID JOSE Administration Furosemide 40 mg 05/13/17 14:00 Lasix Injection - IVPUSH BID JOSE Gabapentin 400 mg 05/05/17 22:00 05/13/17 09:05 Neurontin - PO 400 mg BID JOSE Administration Insulin Aspart 1 vial 05/09/17 13:04 05/13/17 07:16 Novolog Vial Sliding Scale - SQ Not Given ACHS [facility] Protocol Insulin Detemir 20 units 05/10/17 14:16 05/12/17 22:16 Levemir Vial SQ 20 units HS JOSE Administration Levothyroxine Sodium 25 mcg 05/06/17 07:00 05/13/17 07:16 Synthroid - PO 25 mcg DAILY@0700 JOSE Administration Losartan Potassium 50 mg 05/06/17 10:00 05/13/17 09:05 Cozaar - PO 50 mg DAILY JOSE Administration Pantoprazole Sodium 40 mg 05/05/17 22:00 05/13/17 09:04 Protonix - PO 40 mg BID JOSE Administration Prednisone 40 mg 05/12/17 10:00 05/13/17 09:04 Deltasone - PO 40 mg DAILY JOSE Administration Spironolactone 50 mg 05/12/17 10:00 05/13/17 09:43 Aldactone - PO 50 mg DAILY JOSE Administration ASSESSMENT/PLAN 61 year-old male with a PMH significant for HTN, HLD, biventricular heart failure s/p PPM s/p ICD, CAD s/p stent x 3 s/p CABG x 1, atrial fibrillation on Eliquis, COPD on home O2, and IDDM. Admitted for heart failure and COPD exacerbations, and acute on chronic hypoxemic respiratory failure. Acute on chronic hypoxemic respiratory failure Acute on chronic COPD exacerbation --back to baseline home O2 level --duonebs --tapering steroids --pre post evaluation still pending since 05/11 Acute on chronic biventricular heart failure --continue fluid restriction --continue Lasix IV, spironolactone --strict I&Os, daily weights Coronary artery disease s/p stents s/p CABG --continue carvedilol, Lipitor Atrial fibrillation --paced rhythm, rate in 70's --continue Eliquis IDDM --Levemir 20mg qhs --Novolog sliding scale coverage FEN Fluids: PO intake adequate Electrolytes: replete as indicated Nutrition: diabetic low sodium DVT prophylaxis: on Eliquis Physical therapy evaluation Dispo: continues to require inpatient care. Full code. Visit type - Emergency Visit Emergency Visit: Yes ED Registration Date: 05/05/17 Care time: The patient presented to the Emergency Department on the above date and was hospitalized for further evaluation of their emergent condition. - New Patient This patient is new to me today: No - Critical Care Critical Care patient: No
[2017-05-13 12:20] LABS: ALBUMIN 3.3 g/dl (3.4-5.0); ANION GAP 3 (8-16); BILIRUBIN,TOTAL 1.4 mg/dL (0.2-1.0); BLOOD UREA NITROGEN 39 mg/dL (7-18); CALCIUM 8.1 mg/dL (8.5-10.1); CHLORIDE 93 mmol/L (98-107); CO2 39 mmol/L (21-32); CREATININE 1.3 mg/dL (0.7-1.3); GLUCOSE,RANDOM 200 mg/dL (74-106); MAGNESIUM 2.3 mg/dL (1.8-2.4); PHOSPHOROUS 3.1 mg/dL (2.5-4.9); POTASSIUM 3.8 mmol/L (3.5-5.1); SGOT/AST 14 U/L (15-37); SGPT/ALT 43 U/L (12-78); SODIUM 135 mmol/L (136-145); TOT PROT 6.8 g/dl (6.4-8.2)
[2017-05-13 12:21] LABS: ALK PHOS 69 U/L (45-117)
--- NOTE | 2017-05-13 12:53 | PN ---
Progress Note (short form) - Note Progress Note: PULMONARY States breathing continues to improve. Ambulated without dyspnea. Good urine output with lasix and aldactone. Last Vital Signs Temp Pulse Resp BP Pulse Ox 97.7 F 70 22 104/52 96 05/13/17 03:00 05/13/17 10:20 05/13/17 09:00 05/13/17 05:59 05/13/17 12:10 Intake & Output 05/10/17 05/11/17 05/12/17 05/13/17 23:59 23:59 23:59 23:59 Intake Total 240 240 300 100 Output Total 2350 1350 4250 500 Balance -2110 -1110 -3950 -400 Weight 115.212 kg 112.945 kg 113.852 kg Gen: NAD at rest Heart: RRR Lung: decreased breath sounds at the bases Abd: soft, nontender Ext: + edema CBC, BMP 05/12/17 05:15 05/13/17 11:37 Active Medications Acetaminophen (Tylenol -) 650 mg PO Q4H PRN PRN Reason: FEVER OR PAIN Albuterol/Ipratropium (Duoneb -) 1 amp NEB QIDR [facility] Last Admin: 05/13/17 11:45 Dose: 1 amp Apixaban (Eliquis -) 5 mg PO BID [facility] Last Admin: 05/13/17 09:05 Dose: 5 mg Aspirin (Asa -) 81 mg PO DAILY [facility] Last Admin: 05/13/17 09:05 Dose: 81 mg Atorvastatin Calcium (Lipitor -) 20 mg PO [facility] Last Admin: 05/12/17 22:16 Dose: 20 mg Carvedilol (Coreg -) 6.25 mg PO BID [facility] Last Admin: 05/13/17 09:05 Dose: 6.25 mg Furosemide (Lasix Injection -) 40 mg IVPUSH BID [facility] Gabapentin (Neurontin -) 400 mg PO BID [facility] Last Admin: 05/13/17 09:05 Dose: 400 mg Insulin Aspart (Novolog Vial Sliding Scale -) 1 vial SQ [facility] PRN Reason: Protocol Last Admin: 05/13/17 07:16 Dose: Not Given Insulin Detemir (Levemir Vial) 20 units SQ [facility] Last Admin: 05/12/17 22:16 Dose: 20 units Levothyroxine Sodium (Synthroid -) 25 mcg PO DAILY@0700 [facility] Last Admin: 05/13/17 07:16 Dose: 25 mcg Losartan Potassium (Cozaar -) 50 mg PO DAILY [facility] Last Admin: 05/13/17 09:05 Dose: 50 mg Pantoprazole Sodium (Protonix -) 40 mg PO BID [facility] Last Admin: 05/13/17 09:04 Dose: 40 mg Prednisone (Deltasone -) 40 mg PO DAILY [facility] Last Admin: 05/13/17 09:04 Dose: 40 mg Spironolactone (Aldactone -) 50 mg PO DAILY [facility] Last Admin: 05/13/17 09:43 Dose: 50 mg A/P Acute on Chronic Hypoxic Respiratory Failure Acute on Chronic Systolic Heart Failure COPD CAD s/p CABG Acute on Chronic Renal Failure Atrial Fibrillation SHELDON HTN DM Hyperlipidemia - continue lasix, aldactone - monitor urine output, creatinine - prednisone taper, will decrease to 30mg daily - inhaled bronchodilators - O2 to keep SpO2 >90% - BiPAP at night and PRN during day - rate controlled - continue anticoagulation - PT
[2017-05-13] MEDS: FUROSEMIDE 40 MG/4 ML INJECTABLE VIAL IVPUSH SCH ×2 (15:01→21:13)
[2017-05-13] MEDS: ATORVASTATIN CA 20 MG TABLET (FP) PO SCH (21:14)
[2017-05-13] MEDS: INSULIN DETEMIR 100 UNITS/ML MDV SQ SCH (23:24)
[2017-05-14] MEDS: ALBUTEROL SO4 2.5/IPRATROPIUM 0.5 INH SOL 3 ML VIAL.NEB. NEB SCH ×3 (06:12→17:31)
[2017-05-14] MEDS: LEVOTHYROXINE NA 25 MCG TABLET (FP) PO SCH (06:23)
[2017-05-14] MEDS: INSULIN SLIDING SCALE (NOVOLOG) 1 VIAL SQ SCH ×4 (06:23→21:56)
[2017-05-14] MEDS ORDERED: PT OWN MED DRAWER 7, Y5N ONE ×2 (09:03→21:51)
[2017-05-14] MEDS: ASPIRIN 81 MG CHEWABLE TABLETS PO SCH (09:10)
[2017-05-14] MEDS: CARVEDILOL 6.25 MG TABLET (FP) PO SCH ×2 (09:10→21:53)
[2017-05-14] MEDS: GABAPENTIN 400 MG CAPSULE (FP) PO SCH ×2 (09:10→21:53)
[2017-05-14] MEDS: FUROSEMIDE 40 MG/4 ML INJECTABLE VIAL IVPUSH SCH ×2 (09:10→21:54)
[2017-05-14] MEDS: APIXABAN 5 MG TABLET PO SCH ×2 (09:10→21:53)
[2017-05-14] MEDS: predniSONE 10 MG TABLET (UD) PO SCH (09:10)
[2017-05-14] MEDS: PANTOPRAZOLE 40 MG TABLET (FP) PO SCH ×2 (09:10→21:54)
[2017-05-14] MEDS: SPIRONOLACTONE 25 MG TABLET (FP) PO SCH (09:11)
[2017-05-14] MEDS: LOSARTAN POTASSIUM 50 MG TABLET (FP) PO SCH (09:11)
--- NOTE | 2017-05-14 12:48 | PN ---
Progress Note (short form) - Note Progress Note: PULMONARY States breathing continues to improve. Ambulated without dyspnea. Continues to have good urine output with lasix and aldactone. Last Vital Signs Temp Pulse Resp BP Pulse Ox 98 F 101 H 20 100/62 94 L 05/14/17 09:17 05/14/17 11:34 05/14/17 09:17 05/14/17 09:17 05/14/17 11:40 Intake & Output 05/11/17 05/12/17 05/13/17 05/14/17 23:59 23:59 23:59 23:59 Intake Total 240 300 720 Output Total 1350 4250 3000 Balance -1110 -9540 -2280 Weight 112.945 kg 113.852 kg 113.398 kg Gen: NAD at rest Heart: RRR Lung: decreased breath sounds at the bases Abd: soft, nontender Ext: + edema improving CBC, BMP 05/12/17 05:15 05/13/17 11:37 Active Medications Acetaminophen (Tylenol -) 650 mg PO Q4H PRN PRN Reason: FEVER OR PAIN Albuterol/Ipratropium (Duoneb -) 1 amp NEB QIDR [facility] Last Admin: 05/14/17 11:53 Dose: 1 amp Apixaban (Eliquis -) 5 mg PO BID [facility] Last Admin: 05/14/17 09:10 Dose: 5 mg Aspirin (Asa -) 81 mg PO DAILY [facility] Last Admin: 05/14/17 09:10 Dose: 81 mg Atorvastatin Calcium (Lipitor -) 20 mg PO [facility] Last Admin: 05/13/17 21:14 Dose: 20 mg Carvedilol (Coreg -) 6.25 mg PO BID [facility] Last Admin: 05/14/17 09:10 Dose: 6.25 mg Furosemide (Lasix Injection -) 40 mg IVPUSH BID [facility] Last Admin: 05/14/17 09:10 Dose: 40 mg Gabapentin (Neurontin -) 400 mg PO BID [facility] Last Admin: 05/14/17 09:10 Dose: 400 mg Insulin Aspart (Novolog Vial Sliding Scale -) 1 vial SQ [facility] PRN Reason: Protocol Last Admin: 05/14/17 11:34 Dose: 4 unit Insulin Detemir (Levemir Vial) 20 units SQ [facility] Last Admin: 05/13/17 23:24 Dose: 20 units Levothyroxine Sodium (Synthroid -) 25 mcg PO DAILY@0700 [facility] Last Admin: 05/14/17 06:23 Dose: 25 mcg Losartan Potassium (Cozaar -) 50 mg PO DAILY [facility] Last Admin: 05/14/17 09:11 Dose: 50 mg Pantoprazole Sodium (Protonix -) 40 mg PO BID [facility] Last Admin: 05/14/17 09:10 Dose: 40 mg Prednisone (Deltasone -) 30 mg PO DAILY [facility] Last Admin: 05/14/17 09:10 Dose: 30 mg Spironolactone (Aldactone -) 50 mg PO DAILY [facility] Last Admin: 05/14/17 09:11 Dose: 50 mg A/P Acute on Chronic Hypoxic Respiratory Failure Acute on Chronic Systolic Heart Failure COPD CAD s/p CABG Acute on Chronic Renal Failure Atrial Fibrillation SHELDON HTN DM Hyperlipidemia - continue lasix, aldactone - monitor urine output, creatinine - prednisone taper - inhaled bronchodilators - O2 to keep SpO2 >90% - BiPAP at night and PRN during day - rate controlled - continue anticoagulation - PT - d/c planning
--- NOTE | 2017-05-14 13:20 | PN ---
Physical Exam: SUBJECTIVE: Patient seen and examined in tele icu. States he feels better today, denies dizziness. OBJECTIVE: Hypotensive on 05/13/2017, BP then improved this morning, but now on exam noted to be hypotensive 80/49 on pvc monitor. Vital Signs Period Temp Pulse Resp BP Sys/Villalobos Pulse Ox Last 24 Hr 97.7 F-98.2 F 70-101 20-24 77-112/53-76 92-98 GENERAL: The patient is awake, alert, and fully oriented, in no acute distress. HEAD: Normal with no signs of trauma. EYES: PERRL, extraocular movements intact, sclera anicteric, conjunctiva clear. No ptosis. ENT: Ears normal, nares patent, oropharynx clear without exudates, moist mucous membranes. NECK: Trachea midline, full range of motion, supple. LUNGS: Diminished breath sounds bilateraly, no wheezing, oxygen dependent @ 3 liters at home, tolerating 3 liters here HEART: Regular rate and rhythm, ABDOMEN: Soft, nontender, nondistended, normoactive bowel sounds, no guarding, no rebound, no hepatosplenomegaly, no masses. EXTREMITIES: 2+ pulses, warm, well-perfused, no edema. NEUROLOGICAL: Normal speech, gait not observed. PSYCH: Normal mood, normal affect. SKIN: Warm, dry, normal turgor, no rashes or lesions noted Laboratory Results - last 24 hr 05/13/17 05/13/17 05/13/17 07:04 16:05 23:22 POC Glucometer 125.72212 310.65848 [phone] 05/14/17 05/14/17 06:05 11:16 POC Glucometer 108.52702 168.28903 Active Medications Generic Name Dose Route Start Last Admin Trade Name Freq PRN Reason Stop Dose Admin Acetaminophen 650 mg 05/05/17 15:56 Tylenol - PO Q4H PRN FEVER OR PAIN Albuterol/Ipratropium 1 amp 05/11/17 18:00 05/14/17 11:53 Duoneb - NEB 1 amp QIDR JOSE Administration Apixaban 5 mg 05/08/17 12:00 05/14/17 09:10 Eliquis - PO 5 mg BID JOSE Administration Aspirin 81 mg 05/06/17 10:00 05/14/17 09:10 Asa - PO 81 mg DAILY JOSE Administration Atorvastatin Calcium 20 mg 05/06/17 22:00 05/13/17 21:14 Lipitor - PO 20 mg HS JOSE Administration Carvedilol 6.25 mg 05/05/17 22:00 05/14/17 09:10 Coreg - PO 6.25 mg BID JOSE Administration Furosemide 40 mg 05/13/17 14:00 05/14/17 09:10 Lasix Injection - IVPUSH 40 mg BID JOSE Administration Gabapentin 400 mg 05/05/17 22:00 05/14/17 09:10 Neurontin - PO 400 mg BID JOSE Administration Insulin Aspart 1 vial 05/09/17 13:04 05/14/17 11:34 Novolog Vial Sliding Scale - SQ 4 unit ACHS JOSE Administration Protocol Insulin Detemir 20 units 05/10/17 14:16 05/13/17 23:24 Levemir Vial SQ 20 units HS JOSE Administration Levothyroxine Sodium 25 mcg 05/06/17 07:00 05/14/17 06:23 Synthroid - PO 25 mcg DAILY@0700 JOSE Administration Losartan Potassium 50 mg 05/06/17 10:00 05/14/17 09:11 Cozaar - PO 50 mg DAILY JOSE Administration Pantoprazole Sodium 40 mg 05/05/17 22:00 05/14/17 09:10 Protonix - PO 40 mg BID JOSE Administration Prednisone 30 mg 05/13/17 12:54 05/14/17 09:10 Deltasone - PO 30 mg DAILY JOSE Administration Spironolactone 50 mg 05/12/17 10:00 05/14/17 09:11 Aldactone - PO 50 mg DAILY JOSE Administration ASSESSMENT/PLAN: Patient is a 61 year old male with a significant past medical history of severe systolic CHF with ICD, atrial fibrillation, CAD, CABG x 1, hypertension, hyperlipidemia, diabetes, COPD, obesity, severe obstructive sleep apnea (on CPAP at home). He presented to the ED with progressive dyspnea over 3 weeks. He states he was evaluated here for pneumonia approximately 2 weeks ago and was treated with antibiotics and sent home. He states his SOB slightly improved at home but over that time but became increasingly worse over the past 3-4 days prior to admission. He denies fevers, chills, abdominal pain, constipation, diarrhea, dysuria or weakness. On exam, he states he feels better today, having less dyspnea. He is home oxygen dependent at 3 liters and has CPAP at home. Imaging: echo on 03/20/17- Severe left global hypokinesia. LV with severe systolic dysfunction, RV-mild reduced function with increased pressure. Mild->mod MR. Chest xray 05/05/2017: interval better aeration of the lung with residual perihilar interstitial opacities and mild atelectatic changes in the right lung base Cardiology: Systolic CHF, acute on chronic Shortness of breath, improving Continue cardiac monitoring, noted to be hypotensive on 05/13/17 80/49 on my exam, Stable on 3 liters, minimal dyspnea with exertion but overall improving as per patient Trop negative x 3 Monitor intake and output and daily weights Lasix 40 IV BID On carvedilol, losartan, spironolactone Cardiology following Atrial fibrillation-HR controlled On Coreq 6.25mg BID Eliquis 5mg BID for afib anticoag. Hypertension, chronic Now hypotensive, would monitor CAD h/o CABG, no stent On ASA 81mg daily Lipitor 20mg @ hs On Coreg 6.25mg BID Pulmonary: COPD, acute on chronic Transitioned to PO Prednisoe for taper outpatient Duonebs prn Bipap @ hs Pulmonary following, sees Dr. Link as an outpatient Home oxygen dependent Robitussin for cough Endocrine Diabetes/NIDDM/Hyperglycemia Monitor blood sugars F.E.N. Fluids: tolerating PO Electrolytes: monitor Nutrition: low sodium diet Prophylaxis: GI: Protonix DVT: Eliquis 5mg BID Disposition. Requires inpatient hospitalization. full code. Visit type - Emergency Visit Emergency Visit: Yes ED Registration Date: 05/05/17 Care time: The patient presented to the Emergency Department on the above date and was hospitalized for further evaluation of their emergent condition. - New Patient This patient is new to me today: No - Critical Care Critical Care patient: No - Discharge Referral Referred to [facility] Med P.C.: No
[2017-05-14] MEDS ORDERED: LOSARTAN POTASSIUM 50 MG TABLET (FP) PO SCH (16:18)
--- NOTE | 2017-05-14 20:43 | PN ---
Progress Note, Physician Chief Complaint: Pt OOB in chair; his is visiting. Good appetite; denies PND overnight. History of Present Illness: This is a 61 yo white man with h/o severe systolic CHF-->ICD (followed at [facility] Heart Failure clinic; recent Tc99 pyrophosphate study negarive for amyloid), A- fib, CAD s/p stent placement x 3, CABG x 1, HTN, HLD, DM, COPD, obesity,severe obstructive sleep apnea, who presents with progressive SOB over 3 weeks. He states he was evaluated here for CAP approximately 2 weeks ago and was treated with IV abx and discharged. He states his SOB slightly improved over that time but became increasingly worse over the past 3-4 days. He states his exercise tolerance has decreased to approximately 1 black and is not able to ascend more than 2-3 stairs. He is unable to walk up inclines. He states he has been "bloated" for the past week. His gave his extra Lasix dose recommended by his water quality specialist with 11# weight loss after 1 dose. She did not give him any other doses due to recent HARMAN. He denies fevers, chills, abdominal pain, constipation, diarrhea, dysuria or weakness. He states his AICD has not fired. - Current Medication List Current Medications: Active Medications Acetaminophen (Tylenol -) 650 mg PO Q4H PRN PRN Reason: FEVER OR PAIN Albuterol/Ipratropium (Duoneb -) 1 amp NEB QIDR [facility] Last Admin: 05/14/17 17:31 Dose: 1 amp Apixaban (Eliquis -) 5 mg PO BID [facility] Last Admin: 05/14/17 09:10 Dose: 5 mg Aspirin (Asa -) 81 mg PO DAILY [facility] Last Admin: 05/14/17 09:10 Dose: 81 mg Atorvastatin Calcium (Lipitor -) 20 mg PO HS [facility] Last Admin: 05/13/17 21:14 Dose: 20 mg Carvedilol (Coreg -) 6.25 mg PO BID [facility] Furosemide (Lasix Injection -) 40 mg IVPUSH BID [facility] Last Admin: 05/14/17 09:10 Dose: 40 mg Gabapentin (Neurontin -) 400 mg PO BID [facility] Last Admin: 05/14/17 09:10 Dose: 400 mg Insulin Aspart (Novolog Vial Sliding Scale -) 1 vial SQ ACHS [facility] PRN Reason: Protocol Last Admin: 05/14/17 18:05 Dose: 6 unit Insulin Detemir (Levemir Vial) 20 units SQ HS [facility] Last Admin: 05/13/17 23:24 Dose: 20 units Levothyroxine Sodium (Synthroid -) 25 mcg PO DAILY@0700 [facility] Last Admin: 05/14/17 06:23 Dose: 25 mcg Losartan Potassium (Cozaar -) 50 mg PO DAILY [facility] Pantoprazole Sodium (Protonix -) 40 mg PO BID [facility] Last Admin: 05/14/17 09:10 Dose: 40 mg Prednisone (Deltasone -) 30 mg PO DAILY [facility] Last Admin: 05/14/17 09:10 Dose: 30 mg Spironolactone (Aldactone -) 50 mg PO DAILY [facility] Last Admin: 05/14/17 09:11 Dose: 50 mg - Objective Vital Signs: Vital Signs Temperature 98.5 F 05/14/17 14:30 Pulse Rate 70 05/14/17 18:00 Respiratory Rate 20 05/14/17 18:00 Blood Pressure 90/59 05/14/17 18:00 O2 Sat by Pulse Oximetry (%) 95 05/14/17 17:31 Constitutional: Yes: No Distress Eyes: Yes: WNL HENT: Yes: WNL Neck: Yes: WNL Cardiovascular: Yes: Pulse Irregular Respiratory: Yes: Diminished Gastrointestinal: Yes: Soft, Abdomen, Obese ...Rectal Exam: Yes: Deferred Genitourinary: Yes: Anuria Musculoskeletal: Yes: Muscle Weakness Extremities: Yes: Cool Edema: Yes Edema: LLE: Trace, RLE: Trace Peripheral Pulses WNL: Yes Integumentary: Yes: WNL Neurological: Yes: WNL Psychiatric: Yes: WNL Labs: CBC, BMP 05/12/17 05:15 05/13/17 11:37 INR, PTT INR 2.28 (0.82-1.09) H D 05/05/17 14:30 Problem List - Problems (1) Acute exacerbation of chronic obstructive pulmonary disease (COPD) Assessment/Plan: .bronchodilators, O2 per care transition manager. Pulmonary clinic as outpatient. Code(s): J44.1 - CHRONIC OBSTRUCTIVE PULMONARY DISEASE W (ACUTE) EXACERBATION (2) Acute on chronic systolic CHF (congestive heart failure) Assessment/Plan: Continue carvedilol, losartan, spironolactone(increased to 50 mg daily; f/u BUN/ Cr and electorlytes serially; presently within acceptable levels), furosemde IV. F/u Is and Os, daily weight. Code(s): I50.23 - ACUTE ON CHRONIC SYSTOLIC (CONGESTIVE) HEART FAILURE (3) Renal insufficiency Code(s): N28.9 - DISORDER OF KIDNEY AND URETER, UNSPECIFIED (4) Atrial fibrillation Assessment/Plan: On carvedilolol for HR and CHF. On apixaban for anticoagulation. Code(s): I48.91 - UNSPECIFIED ATRIAL FIBRILLATION (5) Diabetes Assessment/Plan: flucuations in blood glucose. Consultation for reinforcement of diabetic diet would be of benefit. Code(s): E11.9 - TYPE 2 DIABETES MELLITUS WITHOUT COMPLICATIONS (6) HTN (hypertension) Code(s): I10 - ESSENTIAL (PRIMARY) HYPERTENSION Qualifiers: (7) Hyperlipidemia Assessment/Plan: increase atorvastatin to 40-80 mg daily (LDL still above 100 mg/dL on 20 mg atorvastatin). Code(s): E78.5 - HYPERLIPIDEMIA, UNSPECIFIED Qualifiers: (8) Hypothyroid Code(s): E03.9 - HYPOTHYROIDISM, UNSPECIFIED Qualifiers: (9) Morbid obesity Assessment/Plan: dietary/diabetic education; pt has lost a few pounds through more careful food choice and portion control, but continues to fluctuate. He also tends to eat high amount of sweets, and drinks diet roxie garrett, thinking this will be helpful in lowering weight. Code(s): E66.01 - MORBID (SEVERE) OBESITY DUE TO EXCESS CALORIES (10) Obstructive sleep apnea Code(s): G47.33 - OBSTRUCTIVE SLEEP APNEA (ADULT) (PEDIATRIC) (11) S/P implantation of automatic cardioverter/defibrillator (AICD) Code(s): Z95.810 - PRESENCE OF AUTOMATIC (IMPLANTABLE) CARDIAC DEFIBRILLATOR
[2017-05-14] MEDS ORDERED: ATORVASTATIN CA 40 MG TABLET (FP) PO SCH (22:00)
[2017-05-14] MEDS: INSULIN DETEMIR 100 UNITS/ML MDV SQ SCH (22:05)
[2017-05-15] MEDS ORDERED: HEMOQUE TEST 1 EACH EACH ONE (05:14)
[2017-05-15 05:28] VITALS: PULSE 70; TEMP 97.7
[2017-05-15] MEDS: INSULIN SLIDING SCALE (NOVOLOG) 1 VIAL SQ SCH (06:54)
[2017-05-15 07:00] LABS: BASO % 0.1 % (0-2.0); EOS % 0.3 % (0-4.5); HEMATOCRIT 27.3 % (35.4-49); HEMOGLOBIN 8.8 GM/dL (11.7-16.9); LYMPH % 23.1 % (8-40); MCH 28.1 pg (25.7-33.7); MCHC 32.2 g/dl (32.0-35.9); MEAN CELL VOLUME 87.5 fl (80-96); MEAN PLT VOLUME 9.3 fl (7.5-11.1); MONO % 8.7 % (3.8-10.2); NEUT % 67.8 % (42.8-82.8); PLATELET COUNT 185 K/MM3 (134-434); RBC 3.12 M/mm3 (4.00-5.60); RDW 22.9 % (11.9-15.9)
[2017-05-15 07:02] LABS: ALBUMIN 3.2 g/dl (3.4-5.0); ANION GAP 7 (8-16); BLOOD UREA NITROGEN 42 mg/dL (7-18); CALCIUM 8.6 mg/dL (8.5-10.1); CHLORIDE 92 mmol/L (98-107); CO2 39 mmol/L (21-32); GLUCOSE,RANDOM 77 mg/dL (74-106); MAGNESIUM 2.4 mg/dL (1.8-2.4); POTASSIUM 3.4 mmol/L (3.5-5.1); SGOT/AST 15 U/L (15-37); SODIUM 138 mmol/L (136-145)
[2017-05-15 07:05] LABS: ALK PHOS 63 U/L (45-117); CREATININE 1.3 mg/dL (0.7-1.3); PHOSPHOROUS 3.3 mg/dL (2.5-4.9); SGPT/ALT 38 U/L (12-78); TOT PROT 6.6 g/dl (6.4-8.2)
[2017-05-15] MEDS: LEVOTHYROXINE NA 25 MCG TABLET (FP) PO SCH (07:32)
[2017-05-15] MEDS ORDERED: POTASSIUM CHLORIDE TABS 20 MEQ TABLET.ER (FP) PO ONE (07:45)
--- NOTE | 2017-05-15 08:21 | DS ---
Physical Exam: SUBJECTIVE: Patient seen and examined at the bedside. He feels well, denies any pain, states breathing is back to his baseline. OBJECTIVE: Vital Signs Period Temp Pulse Resp BP Sys/Villalobos Pulse Ox Last 24 Hr 97.7 F-98.5 F 70-101 18-24 89-109/54-74 92-98 PHYSICAL EXAM GENERAL: The patient is awake, alert, and fully oriented, in no acute distress. HEAD: Normal with no signs of trauma. EYES: PERRL, extraocular movements intact, sclera anicteric, conjunctiva clear. No ptosis. ENT: Ears normal, nares patent, oropharynx clear without exudates, moist mucous membranes. NECK: Trachea midline, full range of motion, supple. LUNGS: Diminished breath sounds bilateraly, no wheezing, oxygen dependent @ 3 liters at home, tolerating 3 liters here HEART: Regular rate and rhythm, ABDOMEN: Soft, nontender, nondistended, normoactive bowel sounds, no guarding, no rebound, no hepatosplenomegaly, no masses. EXTREMITIES: 2+ pulses, warm, well-perfused, no edema. NEUROLOGICAL: Normal speech, gait not observed. PSYCH: Normal mood, normal affect. SKIN: Warm, dry, normal turgor, no rashes or lesions noted LABS Laboratory Results - last 24 hr 05/13/17 05/13/17 05/13/17 07:04 12:16 12:26 WBC RBC Hgb Hct MCV MCH MCHC RDW Plt Count MPV Neutrophils % Lymphocytes % Monocytes % Eosinophils % Basophils % Sodium Potassium Chloride Carbon Dioxide Anion Gap BUN Creatinine Creat Clearance w eGFR POC Glucometer 125.43889 214.98728 317.43450 Random Glucose Calcium Phosphorus Magnesium Total Bilirubin AST ALT Alkaline Phosphatase Total Protein Albumin 05/13/17 05/13/17 05/14/17 16:05 23:22 06:05 WBC RBC Hgb Hct MCV MCH MCHC RDW Plt Count MPV Neutrophils % Lymphocytes % Monocytes % Eosinophils % Basophils % Sodium Potassium Chloride Carbon Dioxide Anion Gap BUN Creatinine Creat Clearance w eGFR POC Glucometer 310.43598 311.60844 108.40433 Random Glucose Calcium Phosphorus Magnesium Total Bilirubin AST ALT Alkaline Phosphatase Total Protein Albumin 05/14/17 05/14/17 05/14/17 11:16 16:37 21:51 WBC RBC Hgb Hct MCV MCH MCHC RDW Plt Count MPV Neutrophils % Lymphocytes % Monocytes % Eosinophils % Basophils % Sodium Potassium Chloride Carbon Dioxide Anion Gap BUN Creatinine Creat Clearance w eGFR POC Glucometer 168.39823 201.13309 212.59628 Random Glucose Calcium Phosphorus Magnesium Total Bilirubin AST ALT Alkaline Phosphatase Total Protein Albumin 05/15/17 05/15/17 06:10 06:10 WBC 6.0 RBC 3.12 L Hgb 8.8 L D Hct 27.3 L MCV 87.5 MCH 28.1 MCHC 32.2 RDW 22.9 H Plt Count 185 D MPV 9.3 Neutrophils % 67.8 Lymphocytes % 23.1 Monocytes % 8.7 Eosinophils % 0.3 Basophils % 0.1 Sodium 138 Potassium 3.4 L Chloride 92 L Carbon Dioxide 39 H Anion Gap 7 L BUN 42 H Creatinine 1.3 Creat Clearance w eGFR 56.50 POC Glucometer Random Glucose 77 D Calcium 8.6 Phosphorus 3.3 Magnesium 2.4 Total Bilirubin 1.0 D AST 15 ALT 38 Alkaline Phosphatase 63 Total Protein 6.6 Albumin 3.2 L HOSPITAL COURSE: Date of Admission:05/05/17 Date of Discharge: 05/15/17 ASSESSMENT/PLAN: Patient is a 61 year old male with a significant past medical history of severe systolic CHF with ICD, atrial fibrillation, CAD, CABG x 1, hypertension, hyperlipidemia, diabetes, COPD, obesity, severe obstructive sleep apnea (on CPAP at home). He presented to the ED with progressive dyspnea over 3 weeks. He states he was evaluated here for pneumonia approximately 2 weeks ago and was treated with antibiotics and sent home. He states his SOB slightly improved at home but over that time but became increasingly worse over the past 3-4 days prior to admission. He is home oxygen dependent at 3 liters and has CPAP at home. Imaging: echo on 03/20/17- Severe left global hypokinesia. LV with severe systolic dysfunction, RV-mild reduced function with increased pressure. Mild->mod MR. Chest xray 05/05/2017: interval better aeration of the lung with residual perihilar interstitial opacities and mild atelectatic changes in the right lung base Cardiology: Systolic CHF, acute on chronic Shortness of breath, improved during hospitalization, back to baseline Hypotension resolved Stable on 3 liters Trop negative x 3 Monitor intake and output and daily weights Lasix 40 PO BID On carvedilol, losartan, spironolactone Cardiology follow up as an outpatient (Dr. Kaufman is his care transitions nurse) Atrial fibrillation-HR controlled On Coreq 6.25mg BID Eliquis 5mg BID for afib anticoag. Hypertension, chronic Hypotension resolved CAD h/o CABG, no stent On ASA 81mg daily Lipitor 20mg @ hs On Coreg 6.25mg BID Pulmonary: COPD, acute on chronic Transitioned to PO Prednisoe for taper outpatient taper instructions on d/c paperwork Pulmonary following, sees Dr. Link as an outpatient Home oxygen dependent @ 3 liters Robitussin for cough Endocrine Diabetes/NIDDM/Hyperglycemia Restart home meds Disposition. Discharge home with new PCP referral as per patient's request. Will need cardiology and pulmonary follow up as an outpatient. full code. Minutes to complete discharge: 60 Discharge Summary Reason For Visit: CHRONIC RESP FAIL WITH HYPOXIA/CHF Current Active Problems Acute exacerbation of chronic obstructive pulmonary disease (COPD) (Acute) Acute on chronic respiratory failure with hypoxemia (Acute) Acute on chronic systolic CHF (congestive heart failure) (Acute) CHF (congestive heart failure) (Acute) Condition: Stable - Instructions Diet, Activity, Other Instructions: Mr López: Please continue these new medications as prescribed: - Eliquis (substitute for Xarelto), take twice per day 8am and 8pm - Spironolactone 50mg (dose was increased from 25mg) take daily - Lasix 40mg twice per day at 8am and 8pm - Protonix 40mg (take daily while on the steriods) take daily - Coreq 6.25mg twice per day (at 8am and 8pm), this medication was decreased from your home dose of Coreq 12.5mg - Prednisone Taper as follows: Prednisone 30mg daily at 8am on 05/15/2017 (given in the hospital) Prednisone 20mg daily at 8am on 05/16/2017 Prednisone 20mg daily at 8am on 05/17/2017 Prednisone 20mg daily at 8am on 05/18/2017 Prednisone 10mg daily at 8am on 05/19/2017 Prednisone 10mg dialy at 8am on 05/20/2017 - last dose continue all your other home medications as detailed in your discharge instructions Please call me with any questions that you may have. [facility] [phone] Referrals: Nilda Barreto MD [Staff Physician] - Joaquin Whitmore RES [Resident] - (please call to make appointment ) Sujit Link MD [Staff Physician] - Disposition: HOME - Home Medications Comprehensive Discharge Medication List: Ambulatory Orders Aspirin [ASA -] 81 mg PO DAILY 07/26/15 Sitagliptin Phos/Metformin HCl [Janumet 50-1,000 mg Tablet] 1 tab PO BID Gabapentin [Neurontin -] 400 mg PO BID capsule 11/14/15 Levothyroxine [Synthroid -] 25 mcg PO DAILY@0700 tablet 11/14/15 Atorvastatin Ca [Lipitor] 20 mg PO DAILY 01/18/16 Losartan Potassium [Cozaar -] 50 mg PO DAILY 01/18/16 Spironolactone [Aldactone -] 25 mg PO DAILY 01/18/16 Carvedilol [Coreg -] 6.25 mg PO BID 03/20/17 Furosemide [Lasix -] 40 mg PO BID 05/06/17 Rivaroxaban [Xarelto -] 20 mg PO DAILY 05/06/17 This patient is new to me today: No Emergency Visit: Yes ED Registration Date: 05/05/17 Care time: The patient presented to the Emergency Department on the above date and was hospitalized for further evaluation of their emergent condition. Critical Care patient: No - Discharge Referral Referred to [facility] Yes Physician Referral: Nilda Barreto MD ([facility])
[2017-05-15] MEDS: PANTOPRAZOLE 40 MG TABLET (FP) PO SCH (09:05)
[2017-05-15] MEDS: GABAPENTIN 400 MG CAPSULE (FP) PO SCH (09:05)
[2017-05-15] MEDS: ASPIRIN 81 MG CHEWABLE TABLETS PO SCH (09:05)
[2017-05-15] MEDS: predniSONE 10 MG TABLET (UD) PO SCH (09:06)
[2017-05-15] MEDS: CARVEDILOL 6.25 MG TABLET (FP) PO SCH (09:07)
[2017-05-15] MEDS: APIXABAN 5 MG TABLET PO SCH (09:07)
[2017-05-15] MEDS: SPIRONOLACTONE 25 MG TABLET (FP) PO SCH (09:07)
[2017-05-15] MEDS: FUROSEMIDE 40 MG/4 ML INJECTABLE VIAL IVPUSH SCH (09:08)
[2017-05-15 09:18] VITALS: BP 98/63
--- NOTE | 2017-05-15 20:57 | PN ---
Progress Note, Physician - Objective Vital Signs: Vital Signs Temperature 97.7 F 05/15/17 09:15 Pulse Rate 70 05/15/17 09:15 Respiratory Rate 22 05/15/17 09:15 Blood Pressure 98/63 05/15/17 09:15 O2 Sat by Pulse Oximetry (%) 91 L 05/15/17 08:59 Labs: CBC, BMP 05/15/17 06:10 05/15/17 06:10 INR, PTT INR 2.28 (0.82-1.09) H D 05/05/17 14:30 Problem List - Problems (1) Acute exacerbation of chronic obstructive pulmonary disease (COPD) Code(s): J44.1 - CHRONIC OBSTRUCTIVE PULMONARY DISEASE W (ACUTE) EXACERBATION (2) Acute on chronic systolic CHF (congestive heart failure) Code(s): I50.23 - ACUTE ON CHRONIC SYSTOLIC (CONGESTIVE) HEART FAILURE (3) Renal insufficiency Code(s): N28.9 - DISORDER OF KIDNEY AND URETER, UNSPECIFIED (4) Atrial fibrillation Code(s): I48.91 - UNSPECIFIED ATRIAL FIBRILLATION (5) Diabetes Code(s): E11.9 - TYPE 2 DIABETES MELLITUS WITHOUT COMPLICATIONS (6) HTN (hypertension) Code(s): I10 - ESSENTIAL (PRIMARY) HYPERTENSION Qualifiers: (7) Hyperlipidemia Code(s): E78.5 - HYPERLIPIDEMIA, UNSPECIFIED Qualifiers: (8) Hypothyroid Code(s): E03.9 - HYPOTHYROIDISM, UNSPECIFIED Qualifiers: (9) Morbid obesity Code(s): E66.01 - MORBID (SEVERE) OBESITY DUE TO EXCESS CALORIES (10) Obstructive sleep apnea Code(s): G47.33 - OBSTRUCTIVE SLEEP APNEA (ADULT) (PEDIATRIC) (11) S/P implantation of automatic cardioverter/defibrillator (AICD) Code(s): Z95.810 - PRESENCE OF AUTOMATIC (IMPLANTABLE) CARDIAC DEFIBRILLATOR
== END 2017-05-15 09:49 | disposition home or self-care (01) | DRG 291 ==
LOC: JER 14:03 → JERBED 16:35 → J2W 05-06 11:48
PROVIDERS: ADMIT Internal Medicine; ATTEND Nurse Practitioner Family
DX: I50.23 Acute on chronic systolic (congestive) heart failure (principal); J96.21 Acute and chronic respiratory failure with hypoxia; J44.1 Chronic obstructive pulmonary disease with (acute) exacerbation; I42.9 Cardiomyopathy, unspecified; N17.9 Acute kidney failure, unspecified; I50.9 Heart failure, unspecified; I25.10 Atherosclerotic heart disease of native coronary artery without angina pectoris; Z95.1 Presence of aortocoronary bypass graft; G47.33 Obstructive sleep apnea (adult) (pediatric); E78.5 Hyperlipidemia, unspecified; Z87.891 Personal history of nicotine dependence; Z99.81 Dependence on supplemental oxygen; E11.22 Type 2 diabetes mellitus with diabetic chronic kidney disease; N18.9 Chronic kidney disease, unspecified; D64.9 Anemia, unspecified; I48.91 Unspecified atrial fibrillation; E03.9 Hypothyroidism, unspecified; I34.0 Nonrheumatic mitral (valve) insufficiency; E11.65 Type 2 diabetes mellitus with hyperglycemia; E66.9 Obesity, unspecified; Z68.37 Body mass index [BMI] 37.0-37.9, adult; Z79.84 Long term (current) use of oral hypoglycemic drugs; Z95.810 Presence of automatic (implantable) cardiac defibrillator
CPT/HCPCS: 36415; 71010-TC; 71045-TC; 80048; 80053; 82272; 82550; 82803; 83735; 83880; 84100; 84484; 85025; 85610; 87040; 93005; 93010; 94640; 94660; 94761; 97116-GP; 97161-GP; 99282-25; 99284-25

== ENCOUNTER 2017-05-24 07:05 | Inpatient (IN) | payer OTHER ==
--- NOTE | 2017-05-24 07:28 | PDOC ---
Attending Attestation - HPI HPI: 05/24/17 08:15 Patient is a 61 year old male presenting with his , with history of COPD on home O2, GI bleed, CHF with severe systolic dysfunction s/p ICD and pacemaker placement, CAD s/p stenting and CABG, DM, HLD and HTN, the patient presents to the ED complaining of dizziness for the past 2 days. There is associated chest pain described as a discomfort and shortness of breath. He notes his chest pain ranges from mild to moderate, without radiation or modifying factors. Patient states that he increased his home O2 intake to 4L from 3L. He states that he has increased his diuretics to 2 pills per day. He denies any leg swelling. - Physicial Exam PE: 05/24/17 08:15 GENERAL: (+) Pale appearing. Awake, alert, and fully oriented, in no acute distress HEAD: No signs of trauma, normocephalic, atraumatic EYES: PERRLA, EOMI, sclera anicteric, conjunctiva clear ENT: Auricles normal inspection, hearing grossly normal, nares patent, oropharynx clear without exudates. Moist mucos NECK: Normal ROM, supple, no lymphadenopathy, JVD, or masses LUNGS: No distress, speaks full sentences, clear to auscultation bilaterally HEART: (+) Diminished heart sounds. Hypotensive. Regular rate and rhythm, normal S1 and S2, no murmurs, rubs or gallops, peripheral pulses normal and equal bilaterally. ABDOMEN: Soft, nontender, normoactive bowel sounds. No guarding, no rebound. No masses EXTREMITIES : Normal inspection, Normal range of motion, no edema. No clubbing or cyanosis. NEUROLOGICAL: Cranial nerves II through XII grossly intact. Normal speech, no focal sensorimotor deficits SKIN: Warm, Dry, normal turgor, no rashes or lesions noted. <Fabricio Jarrell - Last Filed: 05/24/17 08:19> - Resident Resident Name: Alvaro Curran - ED Attending Attestation I have performed the following: I have examined & evaluated the patient, The case was reviewed & discussed with the resident, I agree w/resident's findings & plan, Exceptions are as noted - Medical Decision Making 05/24/17 07:28 I, Dr. Nikki Jasso, DO, attest that this document has been prepared under my direction and personally reviewed by me in its entirety. I further attest, that it accurately reflects all work, treatment, procedures and medical decision -making performed by me. 05/24/17 08:10 a/p: 61yo male with dizziness and hypotension -recently admitted for CHF exacerbation and increased lasix dose -will check labs, ekg, cxr -pt is pale, no recent melena or vomiting blood -will check trops -suspect dehydration from lasix and decreased water intake -no edema on exam 05/24/17 09:01 pt receiving IVF hydration for HARMAN microblog sent to [facility] for admission <Nikki Jasso - Last Filed: 05/24/17 09:02> Heart Score/ECG Review - ECG Intrepretation Comment:: 05/24/17 07:28 v paced at 70, no acute changes <Nikki Jasso - Last Filed: 05/24/17 09:02>
[2017-05-24] MEDS ORDERED: SODIUM CHLORIDE 500 ML IV STA (07:34)
--- NOTE | 2017-05-24 07:49 | PDOC ---
History of Present Illness - General Chief Complaint: Lightheaded Stated Complaint: WEAKNESS Time Seen by Provider: 05/24/17 07:16 History Source: Patient Exam Limitations: No Limitations - History of Present Illness Initial Comments: 05/24/17 07:44 Patient is a 61M with history of COPD on home O2, GI bleed, CHF with severe systolic dysfunction s/p ICD and pacemaker placement, CAD s/p stenting and CABG , DM, HLD and HTN here today complaining of dizziness for the past 24-48 hours. There is associated chest pain described as a discomfort and shortness of breath. Patient states that he increased his home O2 4L from 3L. He states that he has increased his diuretics. He also complains of associated neck pain that has since resolved. He described the neck pain as posterior neck muscle tightness. The dizziness has persisted. Past History - Past Medical History Allergies/Adverse Reactions: Allergies Allergy/AdvReac Type Severity Reaction Status Date / Time No Known Drug Allergies Allergy Verified 05/24/17 07:13 Home Medications: Ambulatory Orders Aspirin [ASA -] 81 mg PO DAILY 07/26/15 Sitagliptin Phos/Metformin HCl [Janumet 50-1,000 mg Tablet] 1 tab PO BID Gabapentin [Neurontin -] 400 mg PO BID capsule 11/14/15 Levothyroxine [Synthroid -] 25 mcg PO DAILY@0700 tablet 11/14/15 Atorvastatin Ca [Lipitor] 20 mg PO DAILY 01/18/16 Losartan Potassium [Cozaar -] 50 mg PO DAILY 01/18/16 Furosemide [Lasix -] 40 mg PO BID 05/06/17 Apixaban [Eliquis -] 5 mg PO BID #60 tablet 05/15/17 Carvedilol [Coreg -] 6.25 mg PO BID #60 tablet 05/15/17 Pantoprazole Sodium [Protonix -] 40 mg PO DAILY #10 tablet.ec 05/15/17 Prednisone [Deltasone -] See Taper PO DAILY #20 tablet 05/15/17 Spironolactone [Aldactone -] 50 mg PO DAILY #30 tablet 05/15/17 Anemia: Yes Cardiac Disorders: Yes (cardiac stent, PACEMAKER-DEFIB, cardiomyopathy, CABG 4) COPD: Yes (5 L o2) CHF: Yes Diabetes: Yes HTN: No (LOW BP) Hypercholesterolemia: Yes Other medical history: SLEEP APNEA - Surgical History Cardiac Surgery: Yes (cardiac stent x1, CAGB 4, PACEMAKER/DEFIB) Orthopedic Surgery: No - Immunization History Immunization Up to Date: Yes - Suicide/Smoking/Psychosocial Hx Smoking Status: No Smoking History: Former smoker Years of Tobacco Use: 20 Have you smoked in the past 12 months: No Number of Cigarettes Smoked Daily: 0 If you are a former smoker, when did you quit?: 2008 Information on smoking cessation initiated: No 'Breaking Loose' booklet given: 05/30/12 Hx Alcohol Use: No Drug/Substance Use Hx: No Substance Use Type: None Hx Substance Use Treatment: No Review of Systems - Review of Systems Comments:: 05/24/17 07:48 GENERAL/CONSTITUTIONAL: No fever or chills. HEAD, EYES, EARS, NOSE AND THROAT: No change in vision. No sore throat. CARDIOVASCULAR: Positive for chest pain or shortness of breath RESPIRATORY: Positive for small amount of coughing. Negative for wheezing, or hemoptysis. GASTROINTESTINAL: No nausea, vomiting, diarrhea or constipation. GENITOURINARY: No dysuria, frequency, or change in urination. MUSCULOSKELETAL: No joint or muscle swelling or pain. Positive for neck pain. SKIN: No rash NEUROLOGIC: No headache, vertigo, loss of consciousness, or change in strength/ sensation. HEMATOLOGIC/LYMPHATIC: Positive for history of anemia and GI bleed *Physical Exam - Vital Signs Last Vital Signs Temp Pulse Resp BP Pulse Ox 98.2 F 71 22 85/46 92 L 05/24/17 07:08 05/24/17 07:08 05/24/17 07:08 05/24/17 07:08 05/24/17 07:08 - Physical Exam Comments: 05/24/17 07:49 GENERAL: Awake, alert, and fully oriented, pale, obese HEAD: No signs of trauma, normocephalic, atraumatic EYES: PERRLA, EOMI, sclera anicteric, conjunctiva clear ENT: Auricles normal inspection, hearing grossly normal, nares patent, oropharynx clear without exudates. Dry mucosa LUNGS: No distress, speaks full sentences, clear to auscultation bilaterally, on 4L of O2 HEART: Distant heart sounds, Regular rate and rhythm, normal S1 and S2, no murmurs, rubs or gallops, peripheral pulses normal and equal bilaterally. ABDOMEN: Soft, nontender, normoactive bowel sounds. No guarding, no rebound. No masses EXTREMITIES: Normal inspection, Normal range of motion, no edema. No clubbing or cyanosis. NEUROLOGICAL: Cranial nerves II through XII grossly intact. Normal speech, no focal sensorimotor deficits SKIN: Warm, Dry, normal turgor, no rashes or lesions noted. ED Treatment Course - LABORATORY CBC & Chemistry Diagram: 05/24/17 07:59 05/24/17 07:59 - RADIOLOGY Radiology Studies Ordered: Category Date Time Status CHEST X-RAY PORTABLE* [RAD] Stat Radiology 05/24/17 07:35 Ordered Medical Decision Making - Medical Decision Making 05/24/17 07:50 61M with history of COPD on home O2, GI bleed, CHF with severe systolic dysfunction s/p ICD and pacemaker placement, CAD s/p stenting and CABG, DM, HLD and HTN here today with dizziness. Vital signs notable for hypotension to 85/ 46. Repeat in L arm 75/55. Repeat in R arm 85/45. Patient is pale and dry with recent change to diuretics. Will treat with 500mL of normal saline. Will do cbc , cmp, type and screen, trop, ekg, cxr. EKG shows ventricular paced rhythm, rate 70. QRS 232, QTc 542. Sgarbossa negative. No significant changes when compared to EKG from 05/05/17. 05/24/17 09:04 Laboratory Tests 05/24/17 05/24/17 05/24/17 07:59 07:59 07:59 WBC 4.9 Hgb 8.2 L Hct 26.2 L Plt Count 158 INR 1.62 H BUN 54 H D Creatinine 2.6 H D Magnesium 1.6 L D Troponin I < 0.02 B-Natriuretic Peptide 05/24/17 07:59 WBC Hgb Hct Plt Count INR BUN Creatinine Magnesium Troponin I B-Natriuretic Peptide 1814.90 H CBC at baseline. Cr elevated to 2.6, up from baseline of 1.3/1.4. Trop negative. BNP elevated to 1.8k, lower than baseline. Labs suggest dehydration with anemia component. Will admit to hospitalist. 05/24/17 09:25 Nighat Narvaez accepted admission for inpatient tele. *DC/Admit/Observation/Transfer Diagnosis at time of Disposition: HARMAN (acute kidney injury), Hypotension, Dehydration - Discharge Dispostion Condition at time of disposition: Stable Admit: Yes - Referrals - Patient Instructions - Post Discharge Activity
[2017-05-24 08:21] LABS: BASO % 0.3 % (0-2.0); EOS % 0.5 % (0-4.5); HEMATOCRIT 26.2 % (35.4-49); HEMOGLOBIN 8.2 GM/dL (11.7-16.9); LYMPH % 20.6 % (8-40); MCH 27.5 pg (25.7-33.7); MCHC 31.5 g/dl (32.0-35.9); MEAN CELL VOLUME 87.2 fl (80-96); MEAN PLT VOLUME 10.9 fl (7.5-11.1); MONO % 7.8 % (3.8-10.2); NEUT % 70.8 % (42.8-82.8); PLATELET COUNT 158 K/MM3 (134-434); RDW 22.6 % (11.9-15.9); WHITE BLOOD COUNT 4.9 K/mm3 (4.0-10.0)
[2017-05-24 08:29] LABS: INR 1.62 (0.82-1.09); PROTHROMBIN TIME (PATIENT) 18.3 SEC (9.98-11.88)
[2017-05-24 08:42] LABS: ANION GAP 8 (8-16); BLOOD UREA NITROGEN 54 mg/dL (7-18); CALCIUM 7.7 mg/dL (8.5-10.1); CHLORIDE 98 mmol/L (98-107); CO2 30 mmol/L (21-32); CREATININE 2.6 mg/dL (0.7-1.3); GLUCOSE,RANDOM 138 mg/dL (74-106); MAGNESIUM 1.6 mg/dL (1.8-2.4); POTASSIUM 3.5 mmol/L (3.5-5.1); SGOT/AST 18 U/L (15-37); SGPT/ALT 27 U/L (12-78); SODIUM 136 mmol/L (136-145)
[2017-05-24 08:47] LABS: ALK PHOS 55 U/L (45-117); BILIRUBIN,TOTAL 0.9 mg/dL (0.2-1.0); TOT PROT 6.5 g/dl (6.4-8.2)
[2017-05-24] MEDS ORDERED: APIXABAN 5 MG TABLET PO SCH (10:00)
[2017-05-24] MEDS: ASPIRIN 81 MG CHEWABLE TABLETS PO SCH (11:03)
[2017-05-24] MEDS: CARVEDILOL 6.25 MG TABLET (FP) PO SCH ×2 (11:03→22:25)
[2017-05-24] MEDS: ATORVASTATIN CA 20 MG TABLET (FP) PO SCH (11:04)
[2017-05-24] MEDS: PANTOPRAZOLE 40 MG TABLET (FP) PO SCH ×2 (11:04→21:46)
[2017-05-24] MEDS: GABAPENTIN 400 MG CAPSULE (FP) PO SCH ×2 (11:04→22:29)
--- NOTE | 2017-05-24 11:54 | HP ---
CHIEF COMPLAINT: Dizziness Records Custodian: Dr. Queen HISTORY OF PRESENT ILLNESS: 61 year-old male with a PMH significant for HTN, HLD, biventricular heart failure s/p PPM s/p ICD, CAD s/p stent x 3 s/p CABG x 1, atrial fibrillation on Eliquis, COPD on home O2, and IDDM. Multiple hospitalizations for CHF exacerbations, most recently 05/05/17 - 05/15/17. Patient presented to the ED today with two days of lightheadedness and dizziness. He also reports two days of diarrhea. On Thursday he had >10 episodes, on Thursday 4 episodes, today none. He has also noticed his UOP has dropped. He does not drink a lot of fluids. Patient denies headache, fever, sweats and chills. He denies nausea, vomiting. ER course was notable for: (1) Afebrile; hypotensive BP 76/51 (2) BUN 54, Cr 2.6 (baseline 1.3) (3) Hgb 8.2 (was 9.8 two weeks ago) (3) NS 500mL x 1 Recent Travel: No PAST MEDICAL HISTORY: Hypertension Hyperlipidemia Biventricular heart failure Atrial fibrillation COPD oxygen dependent IDDM PAST SURGICAL HISTORY: Social History: Smoking: quit 2008 Alcohol: none since 2008 Drugs: denies Family History: Allergies No Known Drug Allergies Allergy (Verified 05/24/17 07:13) HOME MEDICATIONS: Home Medications Medication Instructions Recorded Aspirin [ASA -] 81 mg PO DAILY 07/26/15 Sitagliptin Phos/Metformin HCl 1 tab PO BID 07/26/15 [Janumet 50-1,000 mg Tablet] Gabapentin [Neurontin -] 400 mg PO BID capsule 11/14/15 Levothyroxine [Synthroid -] 25 mcg PO DAILY@0700 tablet 11/14/15 Atorvastatin Ca [Lipitor] 20 mg PO DAILY 01/18/16 Losartan Potassium [Cozaar -] 50 mg PO DAILY 01/18/16 Furosemide [Lasix -] 40 mg PO BID 05/06/17 Apixaban [Eliquis -] 5 mg PO BID #60 tablet 05/15/17 Carvedilol [Coreg -] 6.25 mg PO BID #60 tablet 05/15/17 Pantoprazole Sodium [Protonix -] 40 mg PO DAILY #10 tablet.ec 05/15/17 Prednisone [Deltasone -] See Taper PO DAILY #20 tablet 05/15/17 Spironolactone [Aldactone -] 50 mg PO DAILY #30 tablet 05/15/17 REVIEW OF SYSTEMS CONSTITUTIONAL: +weakness Absent: fever, chills, diaphoresis, malaise, loss of appetite, weight change HEENT: Absent: rhinorrhea, nasal congestion, throat pain, throat swelling, difficulty swallowing, mouth swelling, ear pain, eye pain, visual changes CARDIOVASCULAR: +lightheadedness Absent: chest pain, syncope, palpitations, irregular heart rate, peripheral edema RESPIRATORY: Absent: cough, shortness of breath, dyspnea with exertion, orthopnea, wheezing, stridor, hemoptysis GASTROINTESTINAL: +diarrhea, decreased UOP Absent: abdominal pain, abdominal distension, nausea, vomiting, constipation, melena, hematochezia GENITOURINARY: Absent: dysuria, frequency, urgency, hesitancy, hematuria, flank pain, genital pain MUSCULOSKELETAL: Absent: myalgia, arthralgia, joint swelling, back pain, neck pain SKIN: Absent: rash, itching, pallor HEMATOLOGIC/IMMUNOLOGIC: Absent: easy bleeding, easy bruising, lymphadenopathy, frequent infections ENDOCRINE: Absent: unexplained weight gain, unexplained weight loss, heat intolerance, cold intolerance NEUROLOGIC: Absent: headache, focal weakness or paresthesias, dizziness, unsteady gait, seizure, mental status changes, bladder or bowel incontinence PSYCHIATRIC: Absent: anxiety, depression, suicidal or homicidal ideation, hallucinations. PHYSICAL EXAMINATION Vital Signs - 24 hr 05/24/17 05/24/17 05/24/17 07:08 08:34 11:04 Temperature 98.2 F Pulse Rate 71 70 Pulse Rate [ 70 70 Apical] Respiratory 22 22 23 Rate Blood Pressure 85/46 Blood Pressure 105/75 84/59 [Left Arm] O2 Sat by Pulse 92 L 95 94 L Oximetry (%) GENERAL: Awake, alert, and fully oriented, in no acute distress. Pale. Dry mucous membranes. Poor skin turgor. HEAD: Normal with no signs of trauma. EYES: Pupils equal, round and reactive to light, extraocular movements intact, sclera anicteric, conjunctiva clear. No lid lag. EARS, NOSE, THROAT: Ears normal, nares patent, oropharynx clear without exudates. Moist mucous membranes. NECK: Normal range of motion, supple without lymphadenopathy, JVD, or masses. LUNGS: Breath sounds equal, clear to auscultation bilaterally. No wheezes, and no crackles. No accessory muscle use. HEART: Regular rate and rhythm, normal S1 and S2 ABDOMEN: Soft, nontender, not distended, normoactive bowel sounds, no guarding, no rebound, no masses. No hepatomegaly or splenomegaly. MUSCULOSKELETAL: Normal range of motion at all joints. No bony deformities or tenderness. No CVA tenderness. UPPER EXTREMITIES: 2+ pulses, warm, well-perfused. No cyanosis. No clubbing. No peripheral edema. LOWER EXTREMITIES: 2+ pulses, warm, well-perfused. No calf tenderness. No peripheral edema. NEUROLOGICAL: Cranial nerves II-XII intact. Normal speech. Laboratory Results - last 24 hr 05/24/17 05/24/17 05/24/17 07:59 07:59 07:59 WBC 4.9 RBC 3.00 L Hgb 8.2 L Hct 26.2 L MCV 87.2 MCH 27.5 MCHC 31.5 L RDW 22.6 H Plt Count 158 MPV 10.9 D Neutrophils % 70.8 Lymphocytes % 20.6 Monocytes % 7.8 Eosinophils % 0.5 Basophils % 0.3 PT with INR 18.30 H INR 1.62 H Sodium 136 Potassium 3.5 Chloride 98 Carbon Dioxide 30 D Anion Gap 8 BUN 54 H D Creatinine 2.6 H D Creat Clearance w eGFR 25.39 Random Glucose 138 H D Calcium 7.7 L Magnesium 1.6 L D Total Bilirubin 0.9 AST 18 ALT 27 D Alkaline Phosphatase 55 Creatine Kinase 26 L Troponin I < 0.02 B-Natriuretic Peptide Total Protein 6.5 Albumin 3.0 L Blood Type Antibody Screen 05/24/17 05/24/17 07:59 07:59 WBC RBC Hgb Hct MCV MCH MCHC RDW Plt Count MPV Neutrophils % Lymphocytes % Monocytes % Eosinophils % Basophils % PT with INR INR Sodium Potassium Chloride Carbon Dioxide Anion Gap BUN Creatinine Creat Clearance w eGFR Random Glucose Calcium Magnesium Total Bilirubin AST ALT Alkaline Phosphatase Creatine Kinase Troponin I B-Natriuretic Peptide 1814.90 H Total Protein Albumin Blood Type A NEGATIVE Antibody Screen Negative ASSESSMENT/PLAN: 61 year-old male with a PMH significant for HTN, HLD, biventricular heart failure s/p PPM s/p ICD, CAD s/p stent x 3 s/p CABG x 1, atrial fibrillation on Eliquis, COPD on home O2, gastritis, and IDDM. Admitted for HARMAN. HARMAN --Cr 2.6, baseline 1.3 --likely multifactorial: diuretics + GI losses from diarrhea x 2 days --will hold home spironolactone and lasix --very gentle IV fluids Anemia Gastritis --Hgb 8.2 in hemoconcentrated state, was 9.8 two weeks ago --last transfused in March 2017; EGD at that time showed gastritis --repeat cbc now; occult stool pending; type and screen done --protonix BID Diarrhea --stool studies, c. diff ordered Chronic biventricular heart failure --hold diuretics due to hypotension, HARMAN --cautious fluid resuscitation COPD --stable Coronary artery disease s/p stents s/p CABG --continue carvedilol, Lipitor Atrial fibrillation --paced rhythm, rate in 70's --hold Eliquis while waiting for repeat cbc IDDM --Levemir --Novolog sliding scale coverage Hypomagnesemia --replete FEN Fluids: NS @ 21mL/hr Electrolytes: replete as indicated Nutrition: diabetic low sodium DVT prophylaxis: hold Eliquis Physical therapy evaluation Dispo: continues to require inpatient care. Full code. Visit type - Emergency Visit Emergency Visit: Yes ED Registration Date: 05/24/17 Care time: The patient presented to the Emergency Department on the above date and was hospitalized for further evaluation of their emergent condition. - New Patient This patient is new to me today: Yes Date on this admission: 05/24/17 - Critical Care Critical Care patient: No
[2017-05-24] MEDS ORDERED: HEPARIN NA (PORCINE) 5,000 UNITS/ML 1ML VIAL SQ SCH (14:00)
[2017-05-24] MEDS ORDERED: SODIUM CHLORIDE 500 ML IV ONE (14:22)
[2017-05-24 14:55] LABS: URINE APPEARANCE CLEAR; URINE BILIRUBIN NEGATIVE (NEGATIVE); URINE BLOOD NEGATIVE (NEGATIVE); URINE COLOR YELLOW; URINE GLUCOSE (UA) NEGATIVE (NEGATIVE); URINE KETONE NEGATIVE (NEGATIVE); URINE LEUK ESTERASE NEGATIVE (NEGATIVE); URINE NITRITE NEGATIVE (NEGATIVE); URINE PROTEIN NEGATIVE (NEGATIVE)
[2017-05-24 18:50] VITALS: BMI 38.0
[2017-05-24] MEDS ORDERED: MAGNESIUM SULF 50% (8.12 MEQ/2 ML-1 GM VIAL) IVPB ONE (20:51)
[2017-05-24] MEDS ORDERED: INSULIN DETEMIR 100 UNITS/ML MDV SQ ONE (21:33)
[2017-05-24] MEDS: INSULIN DETEMIR 100 UNITS/ML MDV SQ SCH (21:34)
[2017-05-24] MEDS ORDERED: MAGNESIUM SULFATE IN WATER 2 GM/50 ML IVPB IVPB ONE (21:45)
[2017-05-24] MEDS: INSULIN SLIDING SCALE (NOVOLOG) 1 VIAL SQ SCH (22:23)
--- NOTE | 2017-05-24 22:31 | CON.CARD ---
Consult Consult Specialty:: Cardiology Reason for Consultation:: dizziness, cp, sob - History of Present Illness History of Present Illness: Patient is a 61 year old male presenting with his , with history of COPD on home O2, GI bleed, CHF with severe systolic dysfunction s/p ICD and pacemaker placement, CAD s/p stenting and CABG, DM, HLD and HTN, the patient presents to the ED complaining of dizziness for the past 2 days. There is associated chest pain described as a discomfort and shortness of breath. He notes his chest pain ranges from mild to moderate, without radiation or modifying factors. Patient states that he increased his home O2 intake to 4L from 3L. He states that he has increased his diuretics to 2 pills per day. He denies any leg swelling. CABG 06/2014 at [facility] (4VD) ICD 2016 Diabetes Mellitus (DM) HTN hyperlipidemia obesity COPD obstructive sleep apnea syndrome (OSAS) paroxysmal atrial fibrillation (PAF) s/p CABG 06/2014 (denies hx ID), with moderately severe systolic LV dysfunction noted at [facility] on that admission-->ICD. - Past Medical History Cardio/Vascular: Yes: AFIB, CAD, CHF, HTN, Hyperlipdemia Pulmonary: Yes: COPD, Sleep Apnea Renal/: Yes: Renal Inusuff (recent; ?prerenal azotemia) Endocrine: Yes: Diabetes Mellitus - Alcohol/Substance Use Hx Alcohol Use: No - Smoking History Smoking history: Former smoker Have you smoked in the past 12 months: No Aproximately how many cigarettes per day: 0 If you are a former smoker, when did you quit?: 2008 - Social History Usual Living Arrangement: With Spouse Home Medications - Allergies Allergies/Adverse Reactions: Allergies Allergy/AdvReac Type Severity Reaction Status Date / Time No Known Drug Allergies Allergy Verified 05/24/17 07:13 - Home Medications Home Medications: Ambulatory Orders Aspirin [ASA -] 81 mg PO DAILY 07/26/15 Sitagliptin Phos/Metformin HCl [Janumet 50-1,000 mg Tablet] 1 tab PO BID Gabapentin [Neurontin -] 400 mg PO BID capsule 11/14/15 Levothyroxine [Synthroid -] 25 mcg PO DAILY@0700 tablet 11/14/15 Atorvastatin Ca [Lipitor] 20 mg PO DAILY 01/18/16 Losartan Potassium [Cozaar -] 50 mg PO DAILY 01/18/16 Furosemide [Lasix -] 40 mg PO BID 05/06/17 Apixaban [Eliquis -] 5 mg PO BID #60 tablet 05/15/17 Carvedilol [Coreg -] 6.25 mg PO BID #60 tablet 05/15/17 Pantoprazole Sodium [Protonix -] 40 mg PO DAILY #10 tablet.ec 05/15/17 Prednisone [Deltasone -] See Taper PO DAILY #20 tablet 05/15/17 Spironolactone [Aldactone -] 50 mg PO DAILY #30 tablet 05/15/17 Review of Systems - Review of Systems Constitutional: reports: No Symptoms Eyes: reports: No Symptoms HENT: reports: No Symptoms Neck: reports: No Symptoms Cardiovascular: reports: Shortness of Breath Gastrointestinal: reports: No Symptoms Genitourinary: reports: No Symptoms Breasts: reports: No Symptoms Reported Musculoskeletal: reports: No Symptoms Integumentary: reports: No Symptoms Neurological: reports: No Symptoms Endocrine: reports: No Symptoms Hematology/Lymphatic: reports: No Symptoms Psychiatric: reports: No Symptoms Vital Signs: Vital Signs Temperature 98.5 F 05/24/17 21:28 Pulse Rate 70 05/24/17 21:28 Respiratory Rate 28 H 05/24/17 21:28 Blood Pressure 72/54 05/24/17 21:28 O2 Sat by Pulse Oximetry (%) 95 05/24/17 21:28 Constitutional: Yes: Well Nourished, No Distress, Calm Eyes: Yes: WNL, Conjunctiva Clear, EOM Intact HENT: Yes: WNL, Atraumatic, Normocephalic Neck: Yes: WNL, Supple, Trachea Midline Respiratory: Yes: WNL, Regular, CTA Bilaterally Gastrointestinal: Yes: WNL, Normal Bowel Sounds Renal/: Yes: WNL Cardiovascular: Yes: WNL, Regular Rate and Rhythm Musculoskeletal: Yes: WNL Extremities: Yes: WNL Integumentary: Yes: WNL Neurological: Yes: WNL, Alert, Oriented ...Motor Strength: WNL Psychiatric: Yes: WNL, Alert, Oriented - Other Data Labs, Other Data: CBC, BMP 05/24/17 07:59 05/24/17 07:59 INR, PTT INR 1.62 (0.82-1.09) H 01/14/18 07:59 Troponin, BNP 05/24/17 05/24/17 07:59 07:59 Troponin I < 0.02 B-Natriuretic Peptide 1814.90 H Troponin, BNP 05/24/17 05/24/17 07:59 07:59 Troponin I < 0.02 B-Natriuretic Peptide 1814.90 H Imaging - Results Chest X-ray: Image Reviewed (no i/e) EKG: Image Reviewed (v paced) Problem List - Problems (1) HARMAN (acute kidney injury) Code(s): N17.9 - ACUTE KIDNEY FAILURE, UNSPECIFIED (2) Dehydration Code(s): E86.0 - DEHYDRATION (3) Hypotension Code(s): I95.9 - HYPOTENSION, UNSPECIFIED (4) Acute exacerbation of chronic obstructive pulmonary disease (COPD) Code(s): J44.1 - CHRONIC OBSTRUCTIVE PULMONARY DISEASE W (ACUTE) EXACERBATION (5) Acute on chronic respiratory failure with hypoxemia Code(s): J96.21 - ACUTE AND CHRONIC RESPIRATORY FAILURE WITH HYPOXIA (6) Acute on chronic systolic CHF (congestive heart failure) Code(s): I50.23 - ACUTE ON CHRONIC SYSTOLIC (CONGESTIVE) HEART FAILURE (7) CHF (congestive heart failure) Code(s): I50.9 - HEART FAILURE, UNSPECIFIED Qualifiers: Congestive heart failure type: unspecified congestive heart failure type Congestive heart failure chronicity: acute on chronic (8) Chronic hypoxemic respiratory failure Code(s): J96.11 - CHRONIC RESPIRATORY FAILURE WITH HYPOXIA (9) DVT prophylaxis Code(s): BUM3069 - (10) GI bleed Code(s): K92.2 - GASTROINTESTINAL HEMORRHAGE, UNSPECIFIED (11) Melena Code(s): K92.1 - MELENA (12) Renal insufficiency Code(s): N28.9 - DISORDER OF KIDNEY AND URETER, UNSPECIFIED (13) Symptomatic anemia Code(s): D64.9 - ANEMIA, UNSPECIFIED (14) Atrial fibrillation Code(s): I48.91 - UNSPECIFIED ATRIAL FIBRILLATION (15) Congestive heart failure with left ventricular systolic dysfunction Code(s): I50.20 - UNSPECIFIED SYSTOLIC (CONGESTIVE) HEART FAILURE (16) Diabetes Code(s): E11.9 - TYPE 2 DIABETES MELLITUS WITHOUT COMPLICATIONS (17) HTN (hypertension) Code(s): I10 - ESSENTIAL (PRIMARY) HYPERTENSION Qualifiers: (18) Hyperlipidemia Code(s): E78.5 - HYPERLIPIDEMIA, UNSPECIFIED Qualifiers: (19) Hypothyroid Code(s): E03.9 - HYPOTHYROIDISM, UNSPECIFIED Qualifiers: (20) Morbid obesity Code(s): E66.01 - MORBID (SEVERE) OBESITY DUE TO EXCESS CALORIES (21) Obstructive sleep apnea Code(s): G47.33 - OBSTRUCTIVE SLEEP APNEA (ADULT) (PEDIATRIC) (22) S/P implantation of automatic cardioverter/defibrillator (AICD) Code(s): Z95.810 - PRESENCE OF AUTOMATIC (IMPLANTABLE) CARDIAC DEFIBRILLATOR Assessment/Plan anemia arf ?gi bleed h/o gastritis chf s/p icd Diabetes Mellitus (DM) HTN hyperlipidemia obesity COPD obstructive sleep apnea syndrome (OSAS) paroxysmal atrial fibrillation (PAF) s/p CABG 06/2014 (denies hx ID), with moderately severe systolic LV dysfunction noted at [facility] on that admission-->ICD. Plan hold ac prbc transfusion gi w/u hold bp meds until bp improves will f/u
[2017-05-24 22:56] LABS: HEMOGLOBIN 7.6 GM/dL (11.7-16.9); MCH 27.6 pg (25.7-33.7); MCHC 31.6 g/dl (32.0-35.9); MEAN CELL VOLUME 87.4 fl (80-96); MEAN PLT VOLUME 8.9 fl (7.5-11.1); PLATELET COUNT 130 K/MM3 (134-434); RBC 2.74 M/mm3 (4.00-5.60)
[2017-05-24 23:09] LABS: ADD RBC MORPHOLOGY YES
[2017-05-24 23:30] LABS: ANISOCYTOSIS 2+; MACROCYTOSIS 0; OVALOCYTE 2+; PLATELET ESTIMATE NORMAL; TARGET CELLS 1+
[2017-05-25] MEDS: INSULIN SLIDING SCALE (NOVOLOG) 1 VIAL SQ SCH ×4 (07:13→22:23)
[2017-05-25] MEDS ORDERED: LEVOTHYROXINE NA 25 MCG TABLET (FP) ONE (07:16)
--- NOTE | 2017-05-25 08:07 | PN ---
Physical Exam: SUBJECTIVE: Patient seen and examined at bedside in ED. Waiting for bed. Feels better. Walked to bathroom without SOB or lightheadedness. OBJECTIVE: Vital Signs Period Temp Pulse Resp BP Sys/Villalobos Pulse Ox Last 24 Hr 98.5 F-98.5 F 69-89 18-28 72-141/46-109 94-99 GENERAL: The patient is awake, alert, and fully oriented, in no acute distress. LUNGS: Breath sounds equal, clear to auscultation bilaterally, no wheezes, no crackles, no accessory muscle use. HEART: Regular rate and rhythm, S1, S2 ABDOMEN: Soft, nontender, nondistended, normoactive bowel sounds, no guarding, no rebound, no hepatosplenomegaly, no masses. EXTREMITIES: 2+ pulses, warm, well-perfused, no edema. NEUROLOGICAL: Cranial nerves II through XII grossly intact. Normal speech, steady gait observed. Laboratory Results - last 24 hr 05/24/17 05/24/17 05/24/17 07:59 07:59 07:59 WBC 4.9 RBC 3.00 L Hgb 8.2 L Hct 26.2 L MCV 87.2 MCH 27.5 MCHC 31.5 L RDW 22.6 H Plt Count 158 MPV 10.9 D Neutrophils % 70.8 Neutrophils % (Manual) Band Neutrophils % Lymphocytes % 20.6 Lymphocytes % (Manual) Monocytes % 7.8 Monocytes % (Manual) Eosinophils % 0.5 Eosinophils % (Manual) Basophils % 0.3 Basophils % (Manual) Myelocytes % (Man) Metamyelocytes Hypochromia Platelet Estimate Polychromasia Poikilocytosis Anisocytosis Microcytosis Macrocytosis Target Cells Ovalocytes PT with INR 18.30 H INR 1.62 H Sodium 136 Potassium 3.5 Chloride 98 Carbon Dioxide 30 D Anion Gap 8 BUN 54 H D Creatinine 2.6 H D Creat Clearance w eGFR 25.39 POC Glucometer Random Glucose 138 H D Calcium 7.7 L Magnesium 1.6 L D Total Bilirubin 0.9 AST 18 ALT 27 D Alkaline Phosphatase 55 Creatine Kinase 26 L Troponin I < 0.02 B-Natriuretic Peptide Total Protein 6.5 Albumin 3.0 L Urine Color Urine Appearance Urine pH Ur Specific [place] Urine Protein Urine Glucose (UA) Urine Ketones Urine Blood Urine Nitrite Urine Bilirubin Urine Urobilinogen Ur Leukocyte Esterase Blood Type Antibody Screen Crossmatch 01/14/18 01/14/18 01/14/18 07:59 07:59 14:46 WBC RBC Hgb Hct MCV MCH MCHC RDW Plt Count MPV Neutrophils % Neutrophils % (Manual) Band Neutrophils % Lymphocytes % Lymphocytes % (Manual) Monocytes % Monocytes % (Manual) Eosinophils % Eosinophils % (Manual) Basophils % Basophils % (Manual) Myelocytes % (Man) Metamyelocytes Hypochromia Platelet Estimate Polychromasia Poikilocytosis Anisocytosis Microcytosis Macrocytosis Target Cells Ovalocytes PT with INR INR Sodium Potassium Chloride Carbon Dioxide Anion Gap BUN Creatinine Creat Clearance w eGFR POC Glucometer Random Glucose Calcium Magnesium Total Bilirubin AST ALT Alkaline Phosphatase Creatine Kinase Troponin I B-Natriuretic Peptide 1814.90 H Total Protein Albumin Urine Color Yellow Urine Appearance Clear Urine pH 5.0 Ur Specific [place] 1.015 Urine Protein Negative Urine Glucose (UA) Negative Urine Ketones Negative Urine Blood Negative Urine Nitrite Negative Urine Bilirubin Negative Urine Urobilinogen 2.0 Ur Leukocyte Esterase Negative Blood Type A NEGATIVE Antibody Screen Negative Crossmatch See Detail 05/24/17 05/24/17 05/25/17 21:17 22:48 07:10 WBC 4.0 RBC 2.74 L Hgb 7.6 L Hct 24.0 L MCV 87.4 MCH 27.6 MCHC 31.6 L RDW 23.0 H Plt Count 130 L MPV 8.9 D Neutrophils % Neutrophils % (Manual) 71.0 Band Neutrophils % 0.0 Lymphocytes % Lymphocytes % (Manual) 19.0 D Monocytes % Monocytes % (Manual) 7 D Eosinophils % Eosinophils % (Manual) 1.0 Basophils % Basophils % (Manual) 0.0 Myelocytes % (Man) 0 Metamyelocytes 0 Hypochromia 1+ Platelet Estimate Normal Polychromasia 1+ Poikilocytosis 1+ Anisocytosis 2+ Microcytosis 2+ Macrocytosis 0 Target Cells 1+ Ovalocytes 2+ PT with INR INR Sodium Potassium Chloride Carbon Dioxide Anion Gap BUN Creatinine Creat Clearance w eGFR POC Glucometer 149.11514 [phone] Random Glucose Calcium Magnesium Total Bilirubin AST ALT Alkaline Phosphatase Creatine Kinase Troponin I B-Natriuretic Peptide Total Protein Albumin Urine Color Urine Appearance Urine pH Ur Specific [place] Urine Protein Urine Glucose (UA) Urine Ketones Urine Blood Urine Nitrite Urine Bilirubin Urine Urobilinogen Ur Leukocyte Esterase Blood Type Antibody Screen Crossmatch Active Medications Generic Name Dose Route Start Last Admin Trade Name Freq PRN Reason Stop Dose Admin Apixaban 5 mg 05/24/17 10:00 05/24/17 11:03 Eliquis - PO Not Given BID [facility] Aspirin 81 mg 05/24/17 10:00 05/24/17 11:03 Asa - PO Not Given DAILY [facility] Atorvastatin Calcium 20 mg 05/24/17 10:00 05/24/17 11:04 Lipitor - PO Not Given DAILY [facility] Carvedilol 6.25 mg 05/24/17 10:00 05/24/17 22:25 Coreg - PO Not Given BID [facility] Gabapentin 400 mg 05/24/17 10:00 05/24/17 22:29 Neurontin - PO 400 mg BID [facility] Administration Sodium Chloride 500 mls @ 21 mls/hr 05/24/17 14:22 05/24/17 14:46 Normal Saline - IV 05/25/17 14:10 21 mls/hr ASDIR ONE Administration Insulin Aspart 1 vial 05/24/17 22:00 05/25/17 07:13 Novolog Vial Sliding Scale - SQ Not Given ACHS [facility] Protocol Insulin Detemir 10 units 05/24/17 22:00 05/24/17 21:34 Levemir Vial SQ 10 unit HS [facility] Administration Levothyroxine Sodium 25 mcg 05/25/17 07:00 Synthroid - PO DAILY@0700 [facility] Pantoprazole Sodium 40 mg 05/24/17 10:00 05/24/17 11:04 Protonix - PO Not Given DAILY [facility] Pantoprazole Sodium 40 mg 05/24/17 22:00 05/24/17 21:46 Protonix - PO 40 mg BID JOSE Administration ASSESSMENT/PLAN: 61 year-old male with a PMH significant for HTN, HLD, biventricular heart failure s/p PPM s/p ICD, CAD s/p stent x 3 s/p CABG x 1, atrial fibrillation on Eliquis, COPD on home O2, gastritis, and IDDM. Admitted for HARMAN, acute blood loss anemia, and obscure GI bleeding. HARMAN --Cr improving, 2.6-->1.9 (baseline 1.3) --likely multifactorial: diuretics + diarrhea + blood loss anemia --continue to hold spironolactone and lasix --very gentle IV fluids Acute blood loss anemia Obscure GI bleeding/Small bowel bleeding --had previous episode of small bowel bleeding requiring transfusion in March 2017; had EGD and colonoscopy at that time remarkable only for gastritis --saw Dr. Shafer on 04/20 to discuss capsule study, patient has weighed risk/benefit and declines this treatment option --will ask Dr. Lozano to see patient to discuss other treatment options --transfused first unit, Hgb 7.6-->8.2; second unit PRBC pending --protonix drip --repeat cbc Diarrhea --stool studies, c. diff ordered Chronic biventricular heart failure --hold diuretics due to hypotension, HARMAN --cautious fluid resuscitation COPD --stable Coronary artery disease s/p stents s/p CABG --continue carvedilol, Lipitor Atrial fibrillation --paced rhythm, rate in 70's --hold Eliquis for now IDDM --Levemir --Novolog sliding scale coverage Hypomagnesemia --replete FEN Fluids: NS @ 21mL/hr Electrolytes: replete as indicated Nutrition: diabetic low sodium DVT prophylaxis: hold Eliquis Physical therapy evaluation Dispo: continues to require inpatient care. Full code. Visit type - Emergency Visit Emergency Visit: Yes ED Registration Date: 05/24/17 Care time: The patient presented to the Emergency Department on the above date and was hospitalized for further evaluation of their emergent condition. - New Patient This patient is new to me today: No - Critical Care Critical Care patient: No
[2017-05-25 08:34] LABS: CHLORIDE 99 mmol/L (98-107); POTASSIUM 4.1 mmol/L (3.5-5.1); SODIUM 137 mmol/L (136-145)
[2017-05-25 08:39] LABS: HEMATOCRIT 25.7 % (35.4-49); HEMOGLOBIN 8.2 GM/dL (11.7-16.9); MCH 27.6 pg (25.7-33.7); MCHC 31.8 g/dl (32.0-35.9); MEAN CELL VOLUME 86.8 fl (80-96); MEAN PLT VOLUME 9.9 fl (7.5-11.1); PLATELET COUNT 137 K/MM3 (134-434); RBC 2.96 M/mm3 (4.00-5.60); RDW 22.1 % (11.9-15.9); WHITE BLOOD COUNT 3.5 K/mm3 (4.0-10.0)
[2017-05-25 08:46] LABS: ADD RBC MORPHOLOGY YES
[2017-05-25 08:55] LABS: ALK PHOS 55 U/L (45-117); ANION GAP 10 (8-16); BILIRUBIN,TOTAL 1.8 mg/dL (0.2-1.0); BLOOD UREA NITROGEN 51 mg/dL (7-18); CALCIUM 8.2 mg/dL (8.5-10.1); CO2 28 mmol/L (21-32); CREATININE 1.9 mg/dL (0.7-1.3); GLUCOSE,RANDOM 86 mg/dL (74-106); LDH 256 U/L (87-241); PHOSPHOROUS 3.1 mg/dL (2.5-4.9); SGOT/AST 35 U/L (15-37); SGPT/ALT 43 U/L (12-78); TOT PROT 6.6 g/dl (6.4-8.2)
[2017-05-25] MEDS: LEVOTHYROXINE NA 25 MCG TABLET (FP) PO SCH (09:45)
[2017-05-25] MEDS ORDERED: PANTOPRAZOLE SODIUM IVPB SCH (09:45)
[2017-05-25] MEDS ORDERED: DEXTROSE 5% IVPB SCH (09:45)
[2017-05-25] MEDS ORDERED: WATER IVPB SCH (09:45)
[2017-05-25] MEDS: ASPIRIN 81 MG CHEWABLE TABLETS PO SCH (09:54)
[2017-05-25] MEDS: PANTOPRAZOLE 40 MG TABLET (FP) PO SCH ×2 (09:55)
[2017-05-25] MEDS: ATORVASTATIN CA 20 MG TABLET (FP) PO SCH (09:55)
[2017-05-25] MEDS: GABAPENTIN 400 MG CAPSULE (FP) PO SCH ×2 (09:55→22:23)
[2017-05-25] MEDS: CARVEDILOL 6.25 MG TABLET (FP) PO SCH ×2 (09:55→22:23)
[2017-05-25 09:57] LABS: ANISOCYTOSIS 2+; MACROCYTOSIS 1+; PLATELET ESTIMATE DECREASED
--- NOTE | 2017-05-25 11:32 | EKG ---
Test Reason : Blood Pressure : / mmHG Vent. Rate : 077 BPM Atrial Rate : 072 BPM P-R Int : 000 ms QRS Dur : 244 ms QT Int : 508 ms P-R-T Axes : 000 -77 097 degrees QTc Int : 574 ms Ventricular-paced rhythm WITH OCCASIONAL PREMATURE VENTRICULAR COMPLEXES ABNORMAL ECG WHEN COMPARED WITH ECG OF 24-MAY-2017 07:26, PREMATURE VENTRICULAR COMPLEXES ARE NOW PRESENT VENT. RATE HAS INCREASED BY 7 BPM Confirmed by TONA GRESHAM MD ([id number]) on 05/25/2017 11:31:48 AM Referred By: Lacie ESPAÑA Confirmed By:TONA GRESHAM MD
--- NOTE | 2017-05-25 11:33 | EKG ---
Test Reason : Blood Pressure : / mmHG Vent. Rate : 070 BPM Atrial Rate : 083 BPM P-R Int : 000 ms QRS Dur : 232 ms QT Int : 502 ms P-R-T Axes : 000 -80 094 degrees QTc Int : 542 ms Ventricular-paced rhythm ABNORMAL ECG WHEN COMPARED WITH ECG OF 05-MAY-2017 15:40, NO SIGNIFICANT CHANGE WAS FOUND Confirmed by TONA GRESHAM MD ([id number]) on 05/25/2017 11:33:16 AM Referred By: Confirmed By:TONA GRESHAM MD
[2017-05-25] MEDS: PANTOPRAZOLE SODIUM 160 MG in DEXTROSE 5%-WATER - 290 ML IVPB SCH (11:50)
[2017-05-25] MEDS ORDERED: INSULIN (NOVOLOG) ASPART 100 UNITS/ML 10ML VIAL ONE (12:02)
--- NOTE | 2017-05-25 12:12 | PN ---
Progress Note, Physician History of Present Illness: Patient is a 61 year old male presenting with his , with history of COPD on home O2, GI bleed, CHF with severe systolic dysfunction s/p ICD and pacemaker placement, CAD s/p stenting and CABG, DM, HLD and HTN, the patient presents to the ED complaining of dizziness for the past 2 days. There is associated chest pain described as a discomfort and shortness of breath. He notes his chest pain ranges from mild to moderate, without radiation or modifying factors. Patient states that he increased his home O2 intake to 4L from 3L. He states that he has increased his diuretics to 2 pills per day. He denies any leg swelling. CABG 06/2014 at [facility] ([id number]) ICD 2016 Diabetes Mellitus (DM) HTN hyperlipidemia obesity COPD obstructive sleep apnea syndrome (OSAS) paroxysmal atrial fibrillation (PAF) s/p CABG 06/2014 (denies hx SD), with moderately severe systolic LV dysfunction noted at [facility] on that admission-->ICD. - Current Medication List Current Medications: Active Medications Apixaban (Eliquis -) 5 mg PO BID [facility] Last Admin: 05/24/17 11:03 Dose: Not Given Aspirin (Asa -) 81 mg PO DAILY [facility] Last Admin: 05/25/17 09:54 Dose: 81 mg Atorvastatin Calcium (Lipitor -) 20 mg PO DAILY [facility] Last Admin: 05/25/17 09:55 Dose: 20 mg Carvedilol (Coreg -) 6.25 mg PO BID [facility] Last Admin: 05/25/17 09:55 Dose: Not Given Gabapentin (Neurontin -) 400 mg PO BID [facility] Last Admin: 05/25/17 09:55 Dose: 400 mg Sodium Chloride (Normal Saline -) 500 mls @ 21 mls/hr IV ASDIR ONE Stop: 05/25/17 14:10 Last Admin: 05/24/17 14:46 Dose: 21 mls/hr Pantoprazole Sodium 160 mg/ (Dextrose) 290 mls @ 14.5 mls/hr IVPB Q20H [facility] Last Admin: 05/25/17 11:50 Dose: 14.5 mls/hr Insulin Aspart (Novolog Vial Sliding Scale -) 1 vial SQ ACHS [facility] PRN Reason: Protocol Last Admin: 05/25/17 11:55 Dose: 2 units Insulin Detemir (Levemir Vial) 10 units SQ HS [facility] Last Admin: 05/24/17 21:34 Dose: 10 unit Levothyroxine Sodium (Synthroid -) 25 mcg PO DAILY@0700 [facility] Last Admin: 05/25/17 09:45 Dose: 25 mcg - Objective Vital Signs: Vital Signs Temperature 98.5 F 05/25/17 04:43 Pulse Rate 70 05/25/17 09:40 Respiratory Rate 23 05/25/17 09:40 Blood Pressure 96/67 05/25/17 09:40 O2 Sat by Pulse Oximetry (%) 96 05/25/17 09:40 Eyes: Yes: WNL, Conjunctiva Clear, EOM Intact HENT: Yes: WNL, Atraumatic, Normocephalic Neck: Yes: WNL, Supple, Trachea Midline Cardiovascular: Yes: WNL, Regular Rate and Rhythm Respiratory: Yes: WNL, Regular, CTA Bilaterally Gastrointestinal: Yes: WNL, Normal Bowel Sounds Genitourinary: Yes: WNL Musculoskeletal: Yes: WNL Extremities: Yes: WNL Edema: No Integumentary: Yes: WNL Neurological: Yes: WNL, Alert, Oriented ...Motor Strength: WNL Psychiatric: Yes: WNL Labs: CBC, BMP 05/25/17 07:30 05/25/17 07:30 INR, PTT INR 1.62 (0.82-1.09) H 05/24/17 07:59 Laboratory Tests 05/24/17 05/24/17 05/24/17 07:59 07:59 07:59 WBC 4.9 RBC 3.00 L Hgb 8.2 L Hct 26.2 L MCV 87.2 MCH 27.5 MCHC 31.5 L RDW 22.6 H Plt Count 158 MPV 10.9 D Neutrophils % 70.8 Neutrophils % (Manual) Band Neutrophils % Lymphocytes % 20.6 Lymphocytes % (Manual) Monocytes % 7.8 Monocytes % (Manual) Eosinophils % 0.5 Eosinophils % (Manual) Basophils % 0.3 Basophils % (Manual) Myelocytes % (Man) Metamyelocytes Hypochromia Platelet Estimate Polychromasia Poikilocytosis Anisocytosis Microcytosis Macrocytosis Target Cells Ovalocytes Retic Count PT with INR 18.30 H INR 1.62 H Sodium 136 Potassium 3.5 Chloride 98 Carbon Dioxide 30 D Anion Gap 8 BUN 54 H D Creatinine 2.6 H D Creat Clearance w eGFR 25.39 POC Glucometer Random Glucose 138 H D Calcium 7.7 L Phosphorus Magnesium 1.6 L D Total Bilirubin 0.9 AST 18 ALT 27 D Alkaline Phosphatase 55 LD Total Creatine Kinase 26 L Troponin I < 0.02 B-Natriuretic Peptide Total Protein 6.5 Albumin 3.0 L Urine Color Urine Appearance Urine pH Ur Specific [place] Urine Protein Urine Glucose (UA) Urine Ketones Urine Blood Urine Nitrite Urine Bilirubin Urine Urobilinogen Ur Leukocyte Esterase Blood Type Antibody Screen Crossmatch 05/24/17 05/24/17 05/24/17 07:59 07:59 14:46 WBC RBC Hgb Hct MCV MCH MCHC RDW Plt Count MPV Neutrophils % Neutrophils % (Manual) Band Neutrophils % Lymphocytes % Lymphocytes % (Manual) Monocytes % Monocytes % (Manual) Eosinophils % Eosinophils % (Manual) Basophils % Basophils % (Manual) Myelocytes % (Man) Metamyelocytes Hypochromia Platelet Estimate Polychromasia Poikilocytosis Anisocytosis Microcytosis Macrocytosis Target Cells Ovalocytes Retic Count PT with INR INR Sodium Potassium Chloride Carbon Dioxide Anion Gap BUN Creatinine Creat Clearance w eGFR POC Glucometer Random Glucose Calcium Phosphorus Magnesium Total Bilirubin AST ALT Alkaline Phosphatase LD Total Creatine Kinase Troponin I B-Natriuretic Peptide 1814.90 H Total Protein Albumin Urine Color Yellow Urine Appearance Clear Urine pH 5.0 Ur Specific [place] 1.015 Urine Protein Negative Urine Glucose (UA) Negative Urine Ketones Negative Urine Blood Negative Urine Nitrite Negative Urine Bilirubin Negative Urine Urobilinogen 2.0 Ur Leukocyte Esterase Negative Blood Type A NEGATIVE Antibody Screen Negative Crossmatch See Detail 05/24/17 05/24/17 05/25/17 21:17 22:48 07:10 WBC 4.0 RBC 2.74 L Hgb 7.6 L Hct 24.0 L MCV 87.4 MCH 27.6 MCHC 31.6 L RDW 23.0 H Plt Count 130 L MPV 8.9 D Neutrophils % Neutrophils % (Manual) 71.0 Band Neutrophils % 0.0 Lymphocytes % Lymphocytes % (Manual) 19.0 D Monocytes % Monocytes % (Manual) 7 D Eosinophils % Eosinophils % (Manual) 1.0 Basophils % Basophils % (Manual) 0.0 Myelocytes % (Man) 0 Metamyelocytes 0 Hypochromia 1+ Platelet Estimate Normal Polychromasia 1+ Poikilocytosis 1+ Anisocytosis 2+ Microcytosis 2+ Macrocytosis 0 Target Cells 1+ Ovalocytes 2+ Retic Count PT with INR INR Sodium Potassium Chloride Carbon Dioxide Anion Gap BUN Creatinine Creat Clearance w eGFR POC Glucometer 149.96047 107.76912 Random Glucose Calcium Phosphorus Magnesium Total Bilirubin AST ALT Alkaline Phosphatase LD Total Creatine Kinase Troponin I B-Natriuretic Peptide Total Protein Albumin Urine Color Urine Appearance Urine pH Ur Specific [place] Urine Protein Urine Glucose (UA) Urine Ketones Urine Blood Urine Nitrite Urine Bilirubin Urine Urobilinogen Ur Leukocyte Esterase Blood Type Antibody Screen Crossmatch 05/25/17 05/25/17 05/25/17 07:30 07:30 07:30 WBC 3.5 L RBC 2.96 L Hgb 8.2 L Hct 25.7 L MCV 86.8 MCH 27.6 MCHC 31.8 L RDW 22.1 H Plt Count 137 MPV 9.9 D Neutrophils % No Result Required. Neutrophils % (Manual) 62.6 Band Neutrophils % 0.0 Lymphocytes % No Result Required. Lymphocytes % (Manual) 28.3 D Monocytes % Monocytes % (Manual) 5 Eosinophils % Eosinophils % (Manual) 3.0 D Basophils % Basophils % (Manual) 0.0 Myelocytes % (Man) 0 Metamyelocytes 0 Hypochromia 1+ Platelet Estimate Decreased Polychromasia 1+ Poikilocytosis 1+ Anisocytosis 2+ Microcytosis 1+ Macrocytosis 1+ Target Cells Ovalocytes Retic Count 2.14 H PT with INR INR Sodium 137 Potassium 4.1 Chloride 99 Carbon Dioxide 28 Anion Gap 10 BUN 51 H Creatinine 1.9 H D Creat Clearance w eGFR 36.47 POC Glucometer Random Glucose 86 D Calcium 8.2 L Phosphorus 3.1 Magnesium 2.0 D Total Bilirubin 1.8 H D AST 35 D ALT 43 D Alkaline Phosphatase 55 LD Total 256 H Creatine Kinase Troponin I B-Natriuretic Peptide Total Protein 6.6 Albumin 3.0 L Urine Color Urine Appearance Urine pH Ur Specific [place] Urine Protein Urine Glucose (UA) Urine Ketones Urine Blood Urine Nitrite Urine Bilirubin Urine Urobilinogen Ur Leukocyte Esterase Blood Type Antibody Screen Crossmatch 05/25/17 11:52 WBC RBC Hgb Hct MCV MCH MCHC RDW Plt Count MPV Neutrophils % Neutrophils % (Manual) Band Neutrophils % Lymphocytes % Lymphocytes % (Manual) Monocytes % Monocytes % (Manual) Eosinophils % Eosinophils % (Manual) Basophils % Basophils % (Manual) Myelocytes % (Man) Metamyelocytes Hypochromia Platelet Estimate Polychromasia Poikilocytosis Anisocytosis Microcytosis Macrocytosis Target Cells Ovalocytes Retic Count PT with INR INR Sodium Potassium Chloride Carbon Dioxide Anion Gap BUN Creatinine Creat Clearance w eGFR POC Glucometer 168.58905 Random Glucose Calcium Phosphorus Magnesium Total Bilirubin AST ALT Alkaline Phosphatase LD Total Creatine Kinase Troponin I B-Natriuretic Peptide Total Protein Albumin Urine Color Urine Appearance Urine pH Ur Specific [place] Urine Protein Urine Glucose (UA) Urine Ketones Urine Blood Urine Nitrite Urine Bilirubin Urine Urobilinogen Ur Leukocyte Esterase Blood Type Antibody Screen Crossmatch Problem List - Problems (1) HARMAN (acute kidney injury) Code(s): N17.9 - ACUTE KIDNEY FAILURE, UNSPECIFIED (2) Dehydration Code(s): E86.0 - DEHYDRATION (3) Hypotension Code(s): I95.9 - HYPOTENSION, UNSPECIFIED (4) Acute exacerbation of chronic obstructive pulmonary disease (COPD) Code(s): J44.1 - CHRONIC OBSTRUCTIVE PULMONARY DISEASE W (ACUTE) EXACERBATION (5) Acute on chronic respiratory failure with hypoxemia Code(s): J96.21 - ACUTE AND CHRONIC RESPIRATORY FAILURE WITH HYPOXIA (6) Acute on chronic systolic CHF (congestive heart failure) Code(s): I50.23 - ACUTE ON CHRONIC SYSTOLIC (CONGESTIVE) HEART FAILURE (7) CHF (congestive heart failure) Code(s): I50.9 - HEART FAILURE, UNSPECIFIED Qualifiers: Congestive heart failure type: unspecified congestive heart failure type Congestive heart failure chronicity: acute on chronic (8) Chronic hypoxemic respiratory failure Code(s): J96.11 - CHRONIC RESPIRATORY FAILURE WITH HYPOXIA (9) DVT prophylaxis Code(s): KRN4337 - (10) GI bleed Code(s): K92.2 - GASTROINTESTINAL HEMORRHAGE, UNSPECIFIED (11) Melena Code(s): K92.1 - MELENA (12) Renal insufficiency Code(s): N28.9 - DISORDER OF KIDNEY AND URETER, UNSPECIFIED (13) Symptomatic anemia Code(s): D64.9 - ANEMIA, UNSPECIFIED (14) Atrial fibrillation Code(s): I48.91 - UNSPECIFIED ATRIAL FIBRILLATION (15) Congestive heart failure with left ventricular systolic dysfunction Code(s): I50.20 - UNSPECIFIED SYSTOLIC (CONGESTIVE) HEART FAILURE (16) Diabetes Code(s): E11.9 - TYPE 2 DIABETES MELLITUS WITHOUT COMPLICATIONS (17) HTN (hypertension) Code(s): I10 - ESSENTIAL (PRIMARY) HYPERTENSION Qualifiers: (18) Hyperlipidemia Code(s): E78.5 - HYPERLIPIDEMIA, UNSPECIFIED Qualifiers: (19) Hypothyroid Code(s): E03.9 - HYPOTHYROIDISM, UNSPECIFIED Qualifiers: (20) Morbid obesity Code(s): E66.01 - MORBID (SEVERE) OBESITY DUE TO EXCESS CALORIES (21) Obstructive sleep apnea Code(s): G47.33 - OBSTRUCTIVE SLEEP APNEA (ADULT) (PEDIATRIC) (22) S/P implantation of automatic cardioverter/defibrillator (AICD) Code(s): Z95.810 - PRESENCE OF AUTOMATIC (IMPLANTABLE) CARDIAC DEFIBRILLATOR Assessment/Plan anemia arf ?gi bleed h/o gastritis chf s/p icd Diabetes Mellitus (DM) HTN hyperlipidemia obesity COPD obstructive sleep apnea syndrome (OSAS) paroxysmal atrial fibrillation (PAF) s/p CABG 06/2014 (denies hx SD), with moderately severe systolic LV dysfunction noted at [facility] on that admission-->ICD. Plan hold ac prbc transfusion gi w/u hold bp meds until bp improves will f/u
--- NOTE | 2017-05-25 15:59 | CON.GI ---
Consult Consult Specialty:: GI Reason for Consultation:: anemia - History of Present Illness History of Present Illness: Chart reviewed. Events noted. The pt is known to GI service from admission in Mar 2017. Pt had EGD and colonoscopy for significant anemia and occult GI blood loss. The exams were unrevealing. A capsule endoscopy consultation was arranged on OP bases. Dr. Shafer saw the patient in consultation and deemed him high risk for the procedure. Pt reports on GI signs of bleeding. No GI-related complaints. Denies dyspepsia, odynophagia, dysphagia, abdominal pain, melena, hematochezia, hematemesis. On ASA and Eliquis - History Source History Provided By: Patient, Medical Record - Past Medical History Cardio/Vascular: Yes: AFIB, CAD, CHF, HTN, Hyperlipdemia Pulmonary: Yes: COPD, Sleep Apnea Renal/: Yes: Renal Inusuff (recent; ?prerenal azotemia) Endocrine: Yes: Diabetes Mellitus - Alcohol/Substance Use Hx Alcohol Use: No - Smoking History Smoking history: Former smoker Have you smoked in the past 12 months: No Aproximately how many cigarettes per day: 0 If you are a former smoker, when did you quit?: 2008 - Social History Usual Living Arrangement: With Spouse Home Medications - Allergies Allergies/Adverse Reactions: Allergies Allergy/AdvReac Type Severity Reaction Status Date / Time No Known Drug Allergies Allergy Verified 05/24/17 07:13 - Home Medications Home Medications: Ambulatory Orders Aspirin [ASA -] 81 mg PO DAILY 07/26/15 Sitagliptin Phos/Metformin HCl [Janumet 50-1,000 mg Tablet] 1 tab PO BID Gabapentin [Neurontin -] 400 mg PO BID capsule 11/14/15 Levothyroxine [Synthroid -] 25 mcg PO DAILY@0700 tablet 11/14/15 Atorvastatin Ca [Lipitor] 20 mg PO DAILY 01/18/16 Losartan Potassium [Cozaar -] 50 mg PO DAILY 01/18/16 Furosemide [Lasix -] 40 mg PO BID 05/06/17 Apixaban [Eliquis -] 5 mg PO BID #60 tablet 05/15/17 Carvedilol [Coreg -] 6.25 mg PO BID #60 tablet 05/15/17 Pantoprazole Sodium [Protonix -] 40 mg PO DAILY #10 tablet.ec 05/15/17 Prednisone [Deltasone -] See Taper PO DAILY #20 tablet 05/15/17 Spironolactone [Aldactone -] 50 mg PO DAILY #30 tablet 05/15/17 Family Disease History - Family Disease History Family History: Unremarkable (non-contributory) Review of Systems Findings/Remarks: ASp er H&P, HPI Physical Exam-GI Vital Signs: Vital Signs Temperature 98.5 F 05/25/17 15:32 Pulse Rate 70 05/25/17 15:32 Respiratory Rate 25 H 05/25/17 15:32 Blood Pressure 111/73 05/25/17 15:32 O2 Sat by Pulse Oximetry (%) 97 05/25/17 15:32 Constitutional: Yes: Well Nourished, No Distress, Calm Eyes: Yes: Conjunctiva Clear HENT: Yes: Atraumatic Neck: Yes: Supple Respiratory: Yes: Regular Gastrointestinal Inspection: No: Ascites, Distention ...Auscultate: Yes: Normoactive Bowel Sounds ...Palpate: Yes: Soft. No: Firm/Rigid, Guarding, Splenomegaly, Tenderness, Tenderness, Epigastium, Tenderness, Rebound Neurological: Yes: Alert, Oriented Labs: CBC, BMP 05/25/17 07:30 05/25/17 07:30 INR, PTT INR 1.62 (0.82-1.09) H 05/24/17 07:59 Laboratory Results - last 24 hr 05/24/17 05/24/17 05/24/17 07:59 21:17 22:48 WBC 4.0 RBC 2.74 L Hgb 7.6 L Hct 24.0 L MCV 87.4 MCH 27.6 MCHC 31.6 L RDW 23.0 H Plt Count 130 L MPV 8.9 D Neutrophils % Neutrophils % (Manual) 71.0 Band Neutrophils % 0.0 Lymphocytes % Lymphocytes % (Manual) 19.0 D Monocytes % (Manual) 7 D Eosinophils % (Manual) 1.0 Basophils % (Manual) 0.0 Myelocytes % (Man) 0 Metamyelocytes 0 Hypochromia 1+ Platelet Estimate Normal Polychromasia 1+ Poikilocytosis 1+ Anisocytosis 2+ Microcytosis 2+ Macrocytosis 0 Target Cells 1+ Ovalocytes 2+ Retic Count Sodium Potassium Chloride Carbon Dioxide Anion Gap BUN Creatinine Creat Clearance w eGFR POC Glucometer [phone] Random Glucose Calcium Phosphorus Magnesium Total Bilirubin AST ALT Alkaline Phosphatase LD Total Total Protein Albumin Blood Type A NEGATIVE Antibody Screen Negative Crossmatch See Detail 05/25/17 05/25/17 05/25/17 07:10 07:30 07:30 WBC 3.5 L RBC 2.96 L Hgb 8.2 L Hct 25.7 L MCV 86.8 MCH 27.6 MCHC 31.8 L RDW 22.1 H Plt Count 137 MPV 9.9 D Neutrophils % No Result Required. Neutrophils % (Manual) 62.6 Band Neutrophils % 0.0 Lymphocytes % No Result Required. Lymphocytes % (Manual) 28.3 D Monocytes % (Manual) 5 Eosinophils % (Manual) 3.0 D Basophils % (Manual) 0.0 Myelocytes % (Man) 0 Metamyelocytes 0 Hypochromia 1+ Platelet Estimate Decreased Polychromasia 1+ Poikilocytosis 1+ Anisocytosis 2+ Microcytosis 1+ Macrocytosis 1+ Target Cells Ovalocytes Retic Count Sodium 137 Potassium 4.1 Chloride 99 Carbon Dioxide 28 Anion Gap 10 BUN 51 H Creatinine 1.9 H D Creat Clearance w eGFR 36.47 POC Glucometer [phone] Random Glucose 86 D Calcium 8.2 L Phosphorus 3.1 Magnesium 2.0 D Total Bilirubin 1.8 H D AST 35 D ALT 43 D Alkaline Phosphatase 55 LD Total 256 H Total Protein 6.6 Albumin 3.0 L Blood Type Antibody Screen Crossmatch 05/25/17 05/25/17 07:30 11:52 WBC RBC Hgb Hct MCV MCH MCHC RDW Plt Count MPV Neutrophils % Neutrophils % (Manual) Band Neutrophils % Lymphocytes % Lymphocytes % (Manual) Monocytes % (Manual) Eosinophils % (Manual) Basophils % (Manual) Myelocytes % (Man) Metamyelocytes Hypochromia Platelet Estimate Polychromasia Poikilocytosis Anisocytosis Microcytosis Macrocytosis Target Cells Ovalocytes Retic Count 2.14 H Sodium Potassium Chloride Carbon Dioxide Anion Gap BUN Creatinine Creat Clearance w eGFR POC Glucometer [phone] Random Glucose Calcium Phosphorus Magnesium Total Bilirubin AST ALT Alkaline Phosphatase LD Total Total Protein Albumin Blood Type Antibody Screen Crossmatch Problem List - Problems (1) HARMAN (acute kidney injury) Code(s): N17.9 - ACUTE KIDNEY FAILURE, UNSPECIFIED (2) Dehydration Code(s): E86.0 - DEHYDRATION (3) Hypotension Code(s): I95.9 - HYPOTENSION, UNSPECIFIED (4) CHF (congestive heart failure) Code(s): I50.9 - HEART FAILURE, UNSPECIFIED Qualifiers: Congestive heart failure type: unspecified congestive heart failure type Congestive heart failure chronicity: acute on chronic (5) Symptomatic anemia Code(s): D64.9 - ANEMIA, UNSPECIFIED (6) Atrial fibrillation Code(s): I48.91 - UNSPECIFIED ATRIAL FIBRILLATION (7) Morbid obesity Code(s): E66.01 - MORBID (SEVERE) OBESITY DUE TO EXCESS CALORIES Assessment/Plan A 61 yom on ASA and Eliquis with chronic occult GI bleeding with negative EGD And colonoscopy. Again, offers no obvious signs of ongoing, gross GI bleeding. Keep Hgb above 8 gm/dl. Hold a/c if possible Arrange for capsule endoscopy at [facility], or [facility] [place]. Stool for occult blood Iron profile PPI po daily
[2017-05-25 17:07] LABS: BASO % 0.5 % (0-2.0); HEMATOCRIT 27.3 % (35.4-49); HEMOGLOBIN 8.9 GM/dL (11.7-16.9); LYMPH % 25.3 % (8-40); MCH 28.4 pg (25.7-33.7); MCHC 32.6 g/dl (32.0-35.9); MEAN CELL VOLUME 87.3 fl (80-96); MEAN PLT VOLUME 9.7 fl (7.5-11.1); MONO % 10.5 % (3.8-10.2); NEUT % 62.7 % (42.8-82.8); PLATELET COUNT 146 K/MM3 (134-434); RBC 3.13 M/mm3 (4.00-5.60); RDW 21.3 % (11.9-15.9); WHITE BLOOD COUNT 3.6 K/mm3 (4.0-10.0)
[2017-05-25] MEDS: INSULIN DETEMIR 100 UNITS/ML MDV SQ SCH (22:23)
[2017-05-26] MEDS: INSULIN SLIDING SCALE (NOVOLOG) 1 VIAL SQ SCH ×4 (06:04→21:49)
[2017-05-26] MEDS: LEVOTHYROXINE NA 25 MCG TABLET (FP) PO SCH (06:05)
--- NOTE | 2017-05-26 08:52 | PN ---
Progress Note, Physician History of Present Illness: Comfortable. No events. - Current Medication List Current Medications: Active Medications Apixaban (Eliquis -) 5 mg PO BID [facility] Last Admin: 05/24/17 11:03 Dose: Not Given Aspirin (Asa -) 81 mg PO DAILY [facility] Last Admin: 05/25/17 09:54 Dose: 81 mg Atorvastatin Calcium (Lipitor -) 20 mg PO DAILY [facility] Last Admin: 05/25/17 09:55 Dose: 20 mg Carvedilol (Coreg -) 6.25 mg PO BID [facility] Last Admin: 05/25/17 22:23 Dose: 6.25 mg Gabapentin (Neurontin -) 400 mg PO BID [facility] Last Admin: 05/25/17 22:23 Dose: 400 mg Pantoprazole Sodium 160 mg/ (Dextrose) 290 mls @ 14.5 mls/hr IVPB Q20H [facility] Last Admin: 05/25/17 11:50 Dose: 14.5 mls/hr Insulin Aspart (Novolog Vial Sliding Scale -) 1 vial SQ ACHS [facility] PRN Reason: Protocol Last Admin: 05/26/17 06:04 Dose: Not Given Insulin Detemir (Levemir Vial) 10 units SQ HS [facility] Last Admin: 05/25/17 22:23 Dose: Not Given Levothyroxine Sodium (Synthroid -) 25 mcg PO DAILY@0700 [facility] Last Admin: 05/26/17 06:05 Dose: 25 mcg - Objective Vital Signs: Vital Signs Temperature 97.5 F L 05/26/17 02:00 Pulse Rate 70 05/26/17 06:00 Respiratory Rate 20 05/26/17 06:00 Blood Pressure 103/68 05/26/17 06:00 O2 Sat by Pulse Oximetry (%) 96 05/25/17 20:54 Constitutional: Yes: No Distress Eyes: Yes: Conjunctiva Clear HENT: Yes: Atraumatic Neck: Yes: Supple Cardiovascular: Yes: Regular Rate and Rhythm Respiratory: Yes: Regular Gastrointestinal: Yes: Soft. No: Melena, Rectal Bleeding, Tenderness, Vomiting Labs: INR, PTT INR 1.62 (0.82-1.09) H 05/24/17 07:59 Abnormal Lab Results 05/24/17 05/25/17 05/25/17 07:59 07:30 07:30 WBC RBC Hgb Hct RDW Monocytes % Haptoglobin 259 H BUN 51 H Creatinine 1.9 H D Calcium 8.2 L Total Bilirubin 1.8 H D LD Total 256 H Albumin 3.0 L Crossmatch See Detail 05/25/17 16:55 WBC 3.6 L RBC 3.13 L Hgb 8.9 L Hct 27.3 L RDW 21.3 H Monocytes % 10.5 H Haptoglobin BUN Creatinine Calcium Total Bilirubin LD Total Albumin Crossmatch Problem List - Problems (1) HARMAN (acute kidney injury) Code(s): N17.9 - ACUTE KIDNEY FAILURE, UNSPECIFIED (2) Dehydration Code(s): E86.0 - DEHYDRATION (3) Hypotension Code(s): I95.9 - HYPOTENSION, UNSPECIFIED (4) CHF (congestive heart failure) Code(s): I50.9 - HEART FAILURE, UNSPECIFIED Qualifiers: Congestive heart failure type: unspecified congestive heart failure type Congestive heart failure chronicity: acute on chronic (5) Symptomatic anemia Code(s): D64.9 - ANEMIA, UNSPECIFIED (6) Atrial fibrillation Code(s): I48.91 - UNSPECIFIED ATRIAL FIBRILLATION (7) Morbid obesity Code(s): E66.01 - MORBID (SEVERE) OBESITY DUE TO EXCESS CALORIES Assessment/Plan A 61 yom on ASA and Eliquis with chronic occult GI bleeding with negative EGD And colonoscopy. Again, offers no obvious signs of ongoing, gross GI bleeding. Arrange for capsule endoscopy at [facility] [place] before d/c home. discussed with the patient Hold a/c if possible Stool for occult blood Iron profile PPI po daily
[2017-05-26 09:03] LABS: BASO % 0.3 % (0-2.0); EOS % 0.8 % (0-4.5); HEMATOCRIT 27.5 % (35.4-49); HEMOGLOBIN 8.7 GM/dL (11.7-16.9); MCH 27.7 pg (25.7-33.7); MCHC 31.6 g/dl (32.0-35.9); MEAN CELL VOLUME 87.7 fl (80-96); MEAN PLT VOLUME 9.1 fl (7.5-11.1); MONO % 9.6 % (3.8-10.2); NEUT % 66.3 % (42.8-82.8); PLATELET COUNT 134 K/MM3 (134-434); RBC 3.13 M/mm3 (4.00-5.60); RDW 20.5 % (11.9-15.9); WHITE BLOOD COUNT 3.5 K/mm3 (4.0-10.0)
[2017-05-26] MEDS: CARVEDILOL 6.25 MG TABLET (FP) PO SCH ×2 (09:23→21:47)
[2017-05-26] MEDS: ASPIRIN 81 MG CHEWABLE TABLETS PO SCH (09:23)
[2017-05-26 09:32] LABS: ALK PHOS 59 U/L (45-117); ANION GAP 5 (8-16); BILIRUBIN,TOTAL 1.1 mg/dL (0.2-1.0); BLOOD UREA NITROGEN 27 mg/dL (7-18); CALCIUM 8.1 mg/dL (8.5-10.1); CHLORIDE 103 mmol/L (98-107); CO2 31 mmol/L (21-32); CREATININE 1.1 mg/dL (0.7-1.3); GLUCOSE,RANDOM 156 mg/dL (74-106); POTASSIUM 4.2 mmol/L (3.5-5.1); SGOT/AST 25 U/L (15-37); SGPT/ALT 44 U/L (12-78); SODIUM 139 mmol/L (136-145); TOT PROT 6.5 g/dl (6.4-8.2)
[2017-05-26] MEDS: ATORVASTATIN CA 20 MG TABLET (FP) PO SCH (10:05)
[2017-05-26] MEDS: GABAPENTIN 400 MG CAPSULE (FP) PO SCH ×2 (10:05→21:48)
[2017-05-26] MEDS: FUROSEMIDE 40 MG TABLET (FP) PO SCH (14:21)
[2017-05-26] MEDS: SPIRONOLACTONE 25 MG TABLET (FP) PO SCH (14:21)
[2017-05-26] MEDS: PANTOPRAZOLE SODIUM 160 MG in DEXTROSE 5%-WATER - 290 ML IVPB SCH (14:22)
--- NOTE | 2017-05-26 14:38 | PN ---
Physical Exam: SUBJECTIVE: Patient seen and examined OBJECTIVE: Vital Signs Period Temp Pulse Resp BP Sys/Villalobos Pulse Ox Last 24 Hr 97.5 F-98.5 F 70-74 20-25 99-128/59-78 91-97 GENERAL: The patient is awake, alert, and fully oriented, in no acute distress. HEAD: Normal with no signs of trauma. EYES: PERRL, extraocular movements intact, sclera anicteric, conjunctiva clear. No ptosis. ENT: Ears normal, nares patent, oropharynx clear without exudates, moist mucous membranes. NECK: Trachea midline, full range of motion, supple. LUNGS: Breath sounds equal, clear to auscultation bilaterally, no wheezes, no crackles, no accessory muscle use. HEART: Regular rate and rhythm, S1, S2 without murmur, rub or gallop. ABDOMEN: Soft, nontender, nondistended, normoactive bowel sounds, no guarding, no rebound, no hepatosplenomegaly, no masses. EXTREMITIES: 2+ pulses, warm, well-perfused, no edema. NEUROLOGICAL: Cranial nerves II through XII grossly intact. Normal speech, gait not observed. PSYCH: Normal mood, normal affect. SKIN: Warm, dry, normal turgor, no rashes or lesions noted Laboratory Results - last 24 hr 05/25/17 05/25/17 05/25/17 07:30 16:55 17:30 WBC 3.6 L RBC 3.13 L Hgb 8.9 L Hct 27.3 L MCV 87.3 MCH 28.4 MCHC 32.6 RDW 21.3 H Plt Count 146 MPV 9.7 Neutrophils % 62.7 Lymphocytes % 25.3 D Monocytes % 10.5 H Eosinophils % 1.0 D Basophils % 0.5 Haptoglobin 259 H Sodium Potassium Chloride Carbon Dioxide Anion Gap BUN Creatinine Creat Clearance w eGFR POC Glucometer 135 Random Glucose Calcium Total Bilirubin AST ALT Alkaline Phosphatase Total Protein Albumin 05/25/17 05/26/17 05/26/17 21:28 05:46 08:35 WBC 3.5 L RBC 3.13 L Hgb 8.7 L Hct 27.5 L MCV 87.7 MCH 27.7 MCHC 31.6 L RDW 20.5 H Plt Count 134 MPV 9.1 Neutrophils % 66.3 Lymphocytes % 23.0 Monocytes % 9.6 Eosinophils % 0.8 Basophils % 0.3 Haptoglobin Sodium Potassium Chloride Carbon Dioxide Anion Gap BUN Creatinine Creat Clearance w eGFR POC Glucometer 147 133 Random Glucose Calcium Total Bilirubin AST ALT Alkaline Phosphatase Total Protein Albumin 05/26/17 05/26/17 08:35 11:40 WBC RBC Hgb Hct MCV MCH MCHC RDW Plt Count MPV Neutrophils % Lymphocytes % Monocytes % Eosinophils % Basophils % Haptoglobin Sodium 139 Potassium 4.2 Chloride 103 Carbon Dioxide 31 Anion Gap 5 L BUN 27 H D Creatinine 1.1 D Creat Clearance w eGFR > 60 POC Glucometer 137 Random Glucose 156 H D Calcium 8.1 L Total Bilirubin 1.1 H D AST 25 D ALT 44 Alkaline Phosphatase 59 Total Protein 6.5 Albumin 3.0 L Active Medications Generic Name Dose Route Start Last Admin Trade Name Freq PRN Reason Stop Dose Admin Apixaban 5 mg 05/24/17 10:00 05/24/17 11:03 Eliquis - PO Not Given BID [facility] Aspirin 81 mg 05/24/17 10:00 05/26/17 09:23 Asa - PO Not Given DAILY [facility] Atorvastatin Calcium 20 mg 05/24/17 10:00 05/26/17 10:05 Lipitor - PO 20 mg DAILY [facility] Administration Carvedilol 6.25 mg 05/24/17 10:00 05/26/17 09:23 Coreg - PO Not Given BID [facility] Furosemide 40 mg 05/26/17 14:00 Lasix - PO BIDLASIX [facility] Gabapentin 400 mg 05/24/17 10:00 05/26/17 10:05 Neurontin - PO 400 mg BID [facility] Administration Pantoprazole Sodium 160 mg/ 290 mls @ 14.5 mls/hr 05/25/17 10:15 05/25/17 11: 50 Dextrose IVPB 14.5 mls/hr Q20H [facility] Administration Insulin Aspart 1 vial 05/24/17 22:00 05/26/17 11:43 Novolog Vial Sliding Scale - SQ Not Given ACHS [facility] Protocol Insulin Detemir 10 units 05/24/17 22:00 05/25/17 22:23 Levemir Vial SQ Not Given HS [facility] Levothyroxine Sodium 25 mcg 05/25/17 07:00 05/26/17 06:05 Synthroid - PO 25 mcg DAILY@0700 [facility] Administration Spironolactone 50 mg 05/26/17 13:15 Aldactone - PO DAILY [facility] ASSESSMENT/PLAN:
--- NOTE | 2017-05-26 15:01 | DS ---
Physical Exam: SUBJECTIVE: Patient seen and examined OBJECTIVE: Vital Signs Period Temp Pulse Resp BP Sys/Villalobos Pulse Ox Last 24 Hr 97.5 F-98.5 F 70-74 18-25 99-128/59-78 91-97 PHYSICAL EXAM GENERAL: The patient is awake, alert, and fully oriented, in no acute distress. HEAD: Normal with no signs of trauma. EYES: PERRL, extraocular movements intact, sclera anicteric, conjunctiva clear. ENT: Ears normal, nares patent, oropharynx clear without exudates, moist mucous membranes. NECK: Trachea midline, full range of motion, supple. LUNGS: Breath sounds equal, clear to auscultation bilaterally, no wheezes, no crackles, no accessory muscle use. HEART: Regular rate and rhythm, S1, S2 without murmur, rub or gallop. ABDOMEN: Soft, nontender, nondistended, normoactive bowel sounds, no guarding, no rebound, no hepatosplenomegaly, no masses. EXTREMITIES: 2+ pulses, warm, well-perfused, no edema. NEUROLOGICAL: Cranial nerves II through XII grossly intact. Normal speech, gait not observed. PSYCH: Normal mood, normal affect. SKIN: Warm, dry, normal turgor, no rashes or lesions noted. LABS Laboratory Results - last 24 hr 05/25/17 05/25/17 05/25/17 07:30 16:55 17:30 WBC 3.6 L RBC 3.13 L Hgb 8.9 L Hct 27.3 L MCV 87.3 MCH 28.4 MCHC 32.6 RDW 21.3 H Plt Count 146 MPV 9.7 Neutrophils % 62.7 Lymphocytes % 25.3 D Monocytes % 10.5 H Eosinophils % 1.0 D Basophils % 0.5 Haptoglobin 259 H Sodium Potassium Chloride Carbon Dioxide Anion Gap BUN Creatinine Creat Clearance w eGFR POC Glucometer 135 Random Glucose Calcium Total Bilirubin AST ALT Alkaline Phosphatase Total Protein Albumin 05/25/17 05/26/17 05/26/17 21:28 05:46 08:35 WBC 3.5 L RBC 3.13 L Hgb 8.7 L Hct 27.5 L MCV 87.7 MCH 27.7 MCHC 31.6 L RDW 20.5 H Plt Count 134 MPV 9.1 Neutrophils % 66.3 Lymphocytes % 23.0 Monocytes % 9.6 Eosinophils % 0.8 Basophils % 0.3 Haptoglobin Sodium Potassium Chloride Carbon Dioxide Anion Gap BUN Creatinine Creat Clearance w eGFR POC Glucometer 147 133 Random Glucose Calcium Total Bilirubin AST ALT Alkaline Phosphatase Total Protein Albumin 05/26/17 05/26/17 08:35 11:40 WBC RBC Hgb Hct MCV MCH MCHC RDW Plt Count MPV Neutrophils % Lymphocytes % Monocytes % Eosinophils % Basophils % Haptoglobin Sodium 139 Potassium 4.2 Chloride 103 Carbon Dioxide 31 Anion Gap 5 L BUN 27 H D Creatinine 1.1 D Creat Clearance w eGFR > 60 POC Glucometer 137 Random Glucose 156 H D Calcium 8.1 L Total Bilirubin 1.1 H D AST 25 D ALT 44 Alkaline Phosphatase 59 Total Protein 6.5 Albumin 3.0 L Current Medications Generic Name Dose Route Start Last Admin Trade Name Freq PRN Reason Stop Dose Admin Apixaban 5 mg 05/24/17 10:00 05/24/17 11:03 Eliquis - PO Not Given BID [facility] Aspirin 81 mg 05/24/17 10:00 05/26/17 09:23 Asa - PO Not Given DAILY [facility] Atorvastatin Calcium 20 mg 05/24/17 10:00 05/26/17 10:05 Lipitor - PO 20 mg DAILY [facility] Administration Carvedilol 6.25 mg 05/24/17 10:00 05/26/17 21:47 Coreg - PO 6.25 mg BID [facility] Administration Furosemide 40 mg 05/26/17 14:00 05/26/17 14:21 Lasix - PO 40 mg BIDLASIX [facility] Administration Gabapentin 400 mg 05/24/17 10:00 05/26/17 21:48 Neurontin - PO 400 mg BID [facility] Administration Pantoprazole Sodium 160 mg/ 290 mls @ 14.5 mls/hr 05/25/17 10:15 05/26/17 14: 22 Dextrose IVPB 14.5 mls/hr Q20H [facility] Administration Insulin Aspart 1 vial 05/24/17 22:00 05/26/17 21:49 Novolog Vial Sliding Scale - SQ 2 units ACHS [facility] Administration Protocol Insulin Detemir 10 units 05/24/17 22:00 05/26/17 21:47 Levemir Vial SQ 10 unit HS [facility] Administration Levothyroxine Sodium 25 mcg 05/25/17 07:00 05/26/17 06:05 Synthroid - PO 25 mcg DAILY@0700 [facility] Administration Spironolactone 50 mg 05/26/17 13:15 05/26/17 14:21 Aldactone - PO 50 mg DAILY [facility] Administration HOSPITAL COURSE: Date of Admission:05/24/17 Date of Discharge: 05/26/17 Pre hospital course 61 year-old male with a PMH significant for HTN, HLD, biventricular heart failure s/p PPM s/p ICD, CAD s/p stent x 3 s/p CABG x 1, atrial fibrillation on Eliquis, COPD on home O2, and IDDM. Multiple hospitalizations for CHF exacerbations, most recently -03/25/17 and 05/05/17 - 05/15/17. During the March 2017 admission patient was found to be anemic, Hgb 7.1 on date of admission. He required transfusion 2U PRBC. He underwent EGD and colonoscopy on 03/23, remarkable only for a finding of mild gastritis. No active bleeding site was identified. He consulted a GI specialist in late April and discussed having a capsule study. The specialist felt the patient was at high risk for such a procedure due to his co-morbidities, and the patient and his are opposed to this treatment option. On 05/24/17, patient presented to the ED with two days of lightheadedness and dizziness. He also reported two days of diarrhea. He was hypotensive BP 76/51, BUN 54, Cr 2.6 (baseline 1.3), and Hgb 8.2. Patient was given 500cc's fluid and Hgb dropped to 7.6. On 05/25/17, patient was transfused two units PRBC with modest response, Hgb 7.6- ->8.9. On 05/26, Hgb 8.7. ER course (1) Afebrile; hypotensive BP 76/51 (2) BUN 54/Cr 2.6 (Cr 1.3 baseline) (3) Hgb 8.2 (was 9.8 on 05/12/17) (4) NS 500mL x 1 Subsequent hospital course 61 year-old male with a PMH significant for HTN, HLD, biventricular heart failure s/p PPM s/p ICD, CAD s/p stent x 3 s/p CABG x 1, atrial fibrillation on Eliquis, COPD on home O2, gastritis, and IDDM. Admitted for HARMAN, acute blood loss anemia, and obscure GI bleeding. HARMAN --Cr improving, 2.6-->1.9-->1.1 --likely multifactorial: diuretics + diarrhea + blood loss anemia --spironolactone and lasix were held; restarted 05/26 --very gentle fluids were given initially, dc'd on 05/26 when Cr returned to normal Acute blood loss anemia Obscure GI bleeding/Small bowel bleeding --had previous episode of small bowel bleeding requiring transfusion in March 2017; had EGD and colonoscopy at that time remarkable only for gastritis --saw Dr. Shafer on 04/20 to discuss capsule study, patient has weighed risk/benefit and declines this treatment option --transfused 2U --protonix PO Diarrhea --stool studies, c. diff ordered, not collected Chronic biventricular heart failure --03/20/17 Echo: LV function severely reduced, severe global hypokinesis; PPM in RV, RV function mildly reduced; LAE; mild to moderate MR; moderate TR; RVSP 40-50mmHg; mild PI --diuretics were intially held due to hypotension, HARMAN, restarted 05/26 COPD --stable Coronary artery disease s/p stents s/p CABG --continued carvedilol, Lipitor --ASA and Eliquis held Atrial fibrillation --paced rhythm, rate in 70's --Eliquis held IDDM --Levemir --Novolog sliding scale coverage Dispo: transfer to [place] for evaluation of obscure GI bleeding. Full code. Minutes to complete discharge: 45 Discharge Summary Reason For Visit: ACUTE KIDNEY INJURY Current Active Problems HARMAN (acute kidney injury) (Acute) Dehydration (Acute) Hypotension (Acute) Condition: Stable - Instructions - Home Medications Comprehensive Discharge Medication List: Ambulatory Orders Aspirin [ASA -] 81 mg PO DAILY 07/26/15 Sitagliptin Phos/Metformin HCl [Janumet 50-1,000 mg Tablet] 1 tab PO BID Gabapentin [Neurontin -] 400 mg PO BID capsule 11/14/15 Levothyroxine [Synthroid -] 25 mcg PO DAILY@0700 tablet 11/14/15 Atorvastatin Ca [Lipitor] 20 mg PO DAILY 01/18/16 Losartan Potassium [Cozaar -] 50 mg PO DAILY 01/18/16 Furosemide [Lasix -] 40 mg PO BID 05/06/17 Apixaban [Eliquis -] 5 mg PO BID #60 tablet 05/15/17 Carvedilol [Coreg -] 6.25 mg PO BID #60 tablet 05/15/17 Pantoprazole Sodium [Protonix -] 40 mg PO DAILY #10 tablet.ec 05/15/17 Prednisone [Deltasone -] See Taper PO DAILY #20 tablet 05/15/17 Spironolactone [Aldactone -] 50 mg PO DAILY #30 tablet 05/15/17 This patient is new to me today: No Emergency Visit: Yes ED Registration Date: 05/24/17 Care time: The patient presented to the Emergency Department on the above date and was hospitalized for further evaluation of their emergent condition. Critical Care patient: No - Discharge Referral Referred to [facility] No
--- NOTE | 2017-05-26 16:30 | PN ---
Progress Note, Physician Chief Complaint: Pt OOB in chair; less dyspneic; no chest pain. History of Present Illness: Patient is a 61 year old white male presenting with his , with history of COPD on home O2, GI bleed, CHF with severe systolic dysfunction s/p ICD and pacemaker placement, CAD s/p stenting and CABG, DM, HLD and HTN, the patient presents to the ED complaining of dizziness for the past 2 days. There is associated chest pain described as a discomfort and shortness of breath. He notes his chest pain ranges from mild to moderate, without radiation or modifying factors. Patient states that he increased his home O2 intake to 4L from 3L. He states that he has increased his diuretics to 2 pills per day. He denies any leg swelling. - Current Medication List Current Medications: Active Medications Apixaban (Eliquis -) 5 mg PO BID [facility] Last Admin: 05/24/17 11:03 Dose: Not Given Aspirin (Asa -) 81 mg PO DAILY [facility] Last Admin: 05/26/17 09:23 Dose: Not Given Atorvastatin Calcium (Lipitor -) 20 mg PO DAILY [facility] Last Admin: 05/26/17 10:05 Dose: 20 mg Carvedilol (Coreg -) 6.25 mg PO BID [facility] Last Admin: 05/26/17 09:23 Dose: Not Given Furosemide (Lasix -) 40 mg PO BIDLASIX [facility] Last Admin: 05/26/17 14:21 Dose: 40 mg Gabapentin (Neurontin -) 400 mg PO BID [facility] Last Admin: 05/26/17 10:05 Dose: 400 mg Pantoprazole Sodium 160 mg/ (Dextrose) 290 mls @ 14.5 mls/hr IVPB Q20H [facility] Last Admin: 05/26/17 14:22 Dose: 14.5 mls/hr Insulin Aspart (Novolog Vial Sliding Scale -) 1 vial SQ [facility] PRN Reason: Protocol Last Admin: 05/26/17 11:43 Dose: Not Given Insulin Detemir (Levemir Vial) 10 units SQ HS [facility] Last Admin: 05/25/17 22:23 Dose: Not Given Levothyroxine Sodium (Synthroid -) 25 mcg PO DAILY@0700 [facility] Last Admin: 05/26/17 06:05 Dose: 25 mcg Spironolactone (Aldactone -) 50 mg PO DAILY [facility] Last Admin: 05/26/17 14:21 Dose: 50 mg - Objective Vital Signs: Vital Signs Temperature 98.4 F 05/26/17 14:05 Pulse Rate 70 05/26/17 14:05 Respiratory Rate 18 05/26/17 14:05 Blood Pressure 123/69 05/26/17 14:05 O2 Sat by Pulse Oximetry (%) 91 L 05/26/17 09:00 Constitutional: Yes: Calm Eyes: Yes: WNL HENT: Yes: WNL Neck: Yes: WNL Cardiovascular: Yes: Pulse Irregular Respiratory: Yes: Diminished Gastrointestinal: Yes: Soft, Abdomen, Obese ...Rectal Exam: Yes: Deferred Genitourinary: Yes: Anuria Musculoskeletal: Yes: Back Pain, Muscle Weakness Extremities: Yes: Cool Edema: Yes Edema: LLE: Trace, RLE: Trace Peripheral Pulses WNL: No Peripheral Pulses: Left Doralis Pedis: 1+, Right Dorsalis Pedis: 1+ Integumentary: Yes: Venous Stasis Changes Neurological: Yes: Alert, Oriented, Weakness Psychiatric: Yes: Alert, Oriented Labs: CBC, BMP 05/26/17 08:35 05/26/17 08:35 INR, PTT INR 1.62 (0.82-1.09) H 05/24/17 07:59 Abnormal Lab Results 05/25/17 05/26/17 05/26/17 07:30 08:35 08:35 WBC 3.5 L RBC 3.13 L Hgb 8.7 L Hct 27.5 L MCHC 31.6 L RDW 20.5 H Haptoglobin 259 H Anion Gap 5 L BUN 27 H D Random Glucose 156 H D Calcium 8.1 L Total Bilirubin 1.1 H D Albumin 3.0 L 05/26/17 16:00 WBC 3.9 L RBC 3.09 L Hgb 8.8 L Hct 27.1 L MCHC RDW 20.8 H Haptoglobin Anion Gap BUN Random Glucose Calcium Total Bilirubin Albumin - ....Imaging Other: Image Reviewed (telemetry: Ventricular pacing) Problem List - Problems (1) Acute exacerbation of chronic obstructive pulmonary disease (COPD) Code(s): J44.1 - CHRONIC OBSTRUCTIVE PULMONARY DISEASE W (ACUTE) EXACERBATION (2) Acute on chronic systolic CHF (congestive heart failure) Assessment/Plan: on carvedilol, spironolactone, furosemide. ACEI. F/u BUN/Cr, electrolytes, daily weight, Is and Os. Code(s): I50.23 - ACUTE ON CHRONIC SYSTOLIC (CONGESTIVE) HEART FAILURE (3) GI bleed Assessment/Plan: For capsule endoscopy. Code(s): K92.2 - GASTROINTESTINAL HEMORRHAGE, UNSPECIFIED (4) Renal insufficiency Code(s): N28.9 - DISORDER OF KIDNEY AND URETER, UNSPECIFIED (5) Atrial fibrillation Assessment/Plan: On carvedilol or HR and BP control, CAD, and systolic LV dysfunction. On apixaban. Code(s): I48.91 - UNSPECIFIED ATRIAL FIBRILLATION (6) Diabetes Code(s): E11.9 - TYPE 2 DIABETES MELLITUS WITHOUT COMPLICATIONS (7) HTN (hypertension) Code(s): I10 - ESSENTIAL (PRIMARY) HYPERTENSION Qualifiers: (8) Hyperlipidemia Code(s): E78.5 - HYPERLIPIDEMIA, UNSPECIFIED Qualifiers: (9) Hypothyroid Code(s): E03.9 - HYPOTHYROIDISM, UNSPECIFIED Qualifiers: (10) Morbid obesity Code(s): E66.01 - MORBID (SEVERE) OBESITY DUE TO EXCESS CALORIES (11) Obstructive sleep apnea Assessment/Plan: CPAP; f/u with rest room attendant. Code(s): G47.33 - OBSTRUCTIVE SLEEP APNEA (ADULT) (PEDIATRIC) (12) S/P implantation of automatic cardioverter/defibrillator (AICD) Code(s): Z95.810 - PRESENCE OF AUTOMATIC (IMPLANTABLE) CARDIAC DEFIBRILLATOR (13) CAD (coronary artery disease) Assessment/Plan: Aggressive lowering of lipids (increase atorvastatin to 40-80 mg daily). On carvedilol. On ASA and apixaban. Code(s): I25.10 - ATHSCL HEART DISEASE OF [place] CORONARY ARTERY W/O ANG PCTRS
[2017-05-26 16:53] LABS: HEMATOCRIT 27.1 % (35.4-49); HEMOGLOBIN 8.8 GM/dL (11.7-16.9); MCH 28.5 pg (25.7-33.7); MCHC 32.5 g/dl (32.0-35.9); MEAN CELL VOLUME 87.6 fl (80-96); MEAN PLT VOLUME 9.3 fl (7.5-11.1); PLATELET COUNT 154 K/MM3 (134-434); RBC 3.09 M/mm3 (4.00-5.60); RDW 20.8 % (11.9-15.9); WHITE BLOOD COUNT 3.9 K/mm3 (4.0-10.0)
[2017-05-26] MEDS: INSULIN DETEMIR 100 UNITS/ML MDV SQ SCH (21:47)
[2017-05-27] MEDS: PANTOPRAZOLE SODIUM 160 MG in DEXTROSE 5%-WATER - 290 ML IVPB SCH (06:06)
[2017-05-27] MEDS: FUROSEMIDE 40 MG TABLET (FP) PO SCH ×2 (06:13→14:31)
[2017-05-27] MEDS: LEVOTHYROXINE NA 25 MCG TABLET (FP) PO SCH (06:13)
[2017-05-27] MEDS: INSULIN SLIDING SCALE (NOVOLOG) 1 VIAL SQ SCH ×2 (06:16→11:57)
[2017-05-27 07:38] LABS: HEMATOCRIT 28.9 % (35.4-49); HEMOGLOBIN 9.1 GM/dL (11.7-16.9); MCHC 31.4 g/dl (32.0-35.9); MEAN CELL VOLUME 89.1 fl (80-96); MEAN PLT VOLUME 9.4 fl (7.5-11.1); PLATELET COUNT 145 K/MM3 (134-434); RBC 3.24 M/mm3 (4.00-5.60); RDW 20.8 % (11.9-15.9); WHITE BLOOD COUNT 4.2 K/mm3 (4.0-10.0)
[2017-05-27 07:45] LABS: MAGNESIUM 1.7 mg/dL (1.8-2.4)
[2017-05-27] MEDS ORDERED: PT OWN MED DRAWER 7, Y5N ONE (09:07)
[2017-05-27] MEDS: ATORVASTATIN CA 20 MG TABLET (FP) PO SCH (09:51)
[2017-05-27] MEDS: GABAPENTIN 400 MG CAPSULE (FP) PO SCH (09:51)
[2017-05-27] MEDS: CARVEDILOL 6.25 MG TABLET (FP) PO SCH (09:51)
[2017-05-27] MEDS: SPIRONOLACTONE 25 MG TABLET (FP) PO SCH (09:51)
[2017-05-27] MEDS: ASPIRIN 81 MG CHEWABLE TABLETS PO SCH (09:54)
[2017-05-27] MEDS ORDERED: MAGNESIUM OXIDE 400 MG TABLET (FP) PO ONE ×2 (10:21→12:00)
--- NOTE | 2017-05-27 11:18 | PN ---
Progress Note, Physician History of Present Illness: Patient is a 61 year old male presenting with his , with history of COPD on home O2, GI bleed, CHF with severe systolic dysfunction s/p ICD and pacemaker placement, CAD s/p stenting and CABG, DM, HLD and HTN, the patient presents to the ED complaining of dizziness for the past 2 days. There is associated chest pain described as a discomfort and shortness of breath. He notes his chest pain ranges from mild to moderate, without radiation or modifying factors. Patient states that he increased his home O2 intake to 4L from 3L. He states that he has increased his diuretics to 2 pills per day. He denies any leg swelling. CABG 06/2014 at [facility] (4VD) ICD 2016 Diabetes Mellitus (DM) HTN hyperlipidemia obesity COPD obstructive sleep apnea syndrome (OSAS) paroxysmal atrial fibrillation (PAF) s/p CABG 06/2014 (denies hx [place]), with moderately severe systolic LV dysfunction noted at [facility] on that admission-->ICD. - Current Medication List Current Medications: Active Medications Apixaban (Eliquis -) 5 mg PO BID [facility] Last Admin: 05/24/17 11:03 Dose: Not Given Aspirin (Asa -) 81 mg PO DAILY [facility] Last Admin: 05/27/17 09:54 Dose: Not Given Atorvastatin Calcium (Lipitor -) 20 mg PO DAILY [facility] Last Admin: 05/27/17 09:51 Dose: 20 mg Carvedilol (Coreg -) 6.25 mg PO BID [facility] Last Admin: 05/27/17 09:51 Dose: 6.25 mg Furosemide (Lasix -) 40 mg PO BIDLASIX [facility] Last Admin: 05/27/17 06:13 Dose: 40 mg Gabapentin (Neurontin -) 400 mg PO BID [facility] Last Admin: 05/27/17 09:51 Dose: 400 mg Pantoprazole Sodium 160 mg/ (Dextrose) 290 mls @ 14.5 mls/hr IVPB Q20H [facility] Last Admin: 05/27/17 06:06 Dose: Not Given Insulin Aspart (Novolog Vial Sliding Scale -) 1 vial SQ [facility] PRN Reason: Protocol Last Admin: 05/27/17 06:16 Dose: 2 units Insulin Detemir (Levemir Vial) 10 units SQ HS [facility] Last Admin: 05/26/17 21:47 Dose: 10 unit Levothyroxine Sodium (Synthroid -) 25 mcg PO DAILY@0700 [facility] Last Admin: 05/27/17 06:13 Dose: 25 mcg Spironolactone (Aldactone -) 50 mg PO DAILY [facility] Last Admin: 05/27/17 09:51 Dose: 50 mg - Objective Vital Signs: Vital Signs Temperature 97.2 F L 05/27/17 05:00 Pulse Rate 70 05/27/17 05:00 Respiratory Rate 20 05/27/17 05:00 Blood Pressure 108/66 05/27/17 05:00 O2 Sat by Pulse Oximetry (%) 96 05/26/17 21:00 Eyes: Yes: WNL, Conjunctiva Clear, EOM Intact HENT: Yes: WNL, Atraumatic, Normocephalic Neck: Yes: WNL, Supple, Trachea Midline Cardiovascular: Yes: WNL, Regular Rate and Rhythm Respiratory: Yes: WNL, Regular, CTA Bilaterally Gastrointestinal: Yes: WNL, Normal Bowel Sounds Genitourinary: Yes: WNL Musculoskeletal: Yes: WNL Extremities: Yes: WNL Edema: No Integumentary: Yes: WNL Neurological: Yes: WNL, Alert, Oriented ...Motor Strength: WNL Psychiatric: Yes: WNL Labs: CBC, BMP 05/27/17 05:25 INR, PTT INR 1.62 (0.82-1.09) H 05/24/17 07:59 Problem List - Problems (1) HARMAN (acute kidney injury) Code(s): N17.9 - ACUTE KIDNEY FAILURE, UNSPECIFIED (2) Dehydration Code(s): E86.0 - DEHYDRATION (3) Hypotension Code(s): I95.9 - HYPOTENSION, UNSPECIFIED (4) Acute exacerbation of chronic obstructive pulmonary disease (COPD) Code(s): J44.1 - CHRONIC OBSTRUCTIVE PULMONARY DISEASE W (ACUTE) EXACERBATION (5) Acute on chronic respiratory failure with hypoxemia Code(s): J96.21 - ACUTE AND CHRONIC RESPIRATORY FAILURE WITH HYPOXIA (6) Acute on chronic systolic CHF (congestive heart failure) Code(s): I50.23 - ACUTE ON CHRONIC SYSTOLIC (CONGESTIVE) HEART FAILURE (7) CHF (congestive heart failure) Code(s): I50.9 - HEART FAILURE, UNSPECIFIED Qualifiers: Congestive heart failure type: unspecified congestive heart failure type Congestive heart failure chronicity: acute on chronic (8) Chronic hypoxemic respiratory failure Code(s): J96.11 - CHRONIC RESPIRATORY FAILURE WITH HYPOXIA (9) DVT prophylaxis Code(s): [id number] - (10) GI bleed Code(s): K92.2 - GASTROINTESTINAL HEMORRHAGE, UNSPECIFIED (11) Melena Code(s): K92.1 - MELENA (12) Renal insufficiency Code(s): N28.9 - DISORDER OF KIDNEY AND URETER, UNSPECIFIED (13) Symptomatic anemia Code(s): D64.9 - ANEMIA, UNSPECIFIED (14) Atrial fibrillation Code(s): I48.91 - UNSPECIFIED ATRIAL FIBRILLATION (15) Congestive heart failure with left ventricular systolic dysfunction Code(s): I50.20 - UNSPECIFIED SYSTOLIC (CONGESTIVE) HEART FAILURE (16) Diabetes Code(s): E11.9 - TYPE 2 DIABETES MELLITUS WITHOUT COMPLICATIONS (17) HTN (hypertension) Code(s): I10 - ESSENTIAL (PRIMARY) HYPERTENSION Qualifiers: (18) Hyperlipidemia Code(s): E78.5 - HYPERLIPIDEMIA, UNSPECIFIED Qualifiers: (19) Hypothyroid Code(s): E03.9 - HYPOTHYROIDISM, UNSPECIFIED Qualifiers: (20) Morbid obesity Code(s): E66.01 - MORBID (SEVERE) OBESITY DUE TO EXCESS CALORIES (21) Obstructive sleep apnea Code(s): G47.33 - OBSTRUCTIVE SLEEP APNEA (ADULT) (PEDIATRIC) (22) S/P implantation of automatic cardioverter/defibrillator (AICD) Code(s): Z95.810 - PRESENCE OF AUTOMATIC (IMPLANTABLE) CARDIAC DEFIBRILLATOR Assessment/Plan - Problems (1) Acute exacerbation of chronic obstructive pulmonary disease (COPD) Code(s): J44.1 - CHRONIC OBSTRUCTIVE PULMONARY DISEASE W (ACUTE) EXACERBATION (2) Acute on chronic systolic CHF (congestive heart failure) Assessment/Plan: on carvedilol, spironolactone, furosemide. ACEI. F/u BUN/Cr, electrolytes, daily weight, Is and Os. Code(s): I50.23 - ACUTE ON CHRONIC SYSTOLIC (CONGESTIVE) HEART FAILURE (3) GI bleed Assessment/Plan: For capsule endoscopy. Code(s): K92.2 - GASTROINTESTINAL HEMORRHAGE, UNSPECIFIED (4) Renal insufficiency Code(s): N28.9 - DISORDER OF KIDNEY AND URETER, UNSPECIFIED (5) Atrial fibrillation Assessment/Plan: On carvedilol or HR and BP control, CAD, and systolic LV dysfunction. On apixaban. Code(s): I48.91 - UNSPECIFIED ATRIAL FIBRILLATION (6) Diabetes Code(s): E11.9 - TYPE 2 DIABETES MELLITUS WITHOUT COMPLICATIONS (7) HTN (hypertension) Code(s): I10 - ESSENTIAL (PRIMARY) HYPERTENSION Qualifiers: (8) Hyperlipidemia Code(s): E78.5 - HYPERLIPIDEMIA, UNSPECIFIED Qualifiers: (9) Hypothyroid Code(s): E03.9 - HYPOTHYROIDISM, UNSPECIFIED Qualifiers: (10) Morbid obesity Code(s): E66.01 - MORBID (SEVERE) OBESITY DUE TO EXCESS CALORIES (11) Obstructive sleep apnea Assessment/Plan: CPAP; f/u with line crewman. Code(s): G47.33 - OBSTRUCTIVE SLEEP APNEA (ADULT) (PEDIATRIC) (12) S/P implantation of automatic cardioverter/defibrillator (AICD) Code(s): Z95.810 - PRESENCE OF AUTOMATIC (IMPLANTABLE) CARDIAC DEFIBRILLATOR (13) CAD (coronary artery disease) Assessment/Plan: Aggressive lowering of lipids (increase atorvastatin to 40-80 mg daily). On carvedilol. On ASA and apixaban. Code(s): I25.10 - ATHSCL HEART DISEASE OF [place] CORONARY ARTERY W/O ANG PCTRS
[2017-05-27 11:46] LABS: ANION GAP 5 (8-16); BLOOD UREA NITROGEN 18 mg/dL (7-18); CHLORIDE 104 mmol/L (98-107); CO2 32 mmol/L (21-32); CREATININE 1.1 mg/dL (0.7-1.3); GLUCOSE,RANDOM 116 mg/dL (74-106); POTASSIUM 4.2 mmol/L (3.5-5.1); SODIUM 141 mmol/L (136-145)
[2017-05-27] MEDS ORDERED: INSULIN (NOVOLOG) ASPART 100 UNITS/ML 10ML VIAL ONE (11:50)
[2017-05-27 17:27] VITALS: BP 117/74; PULSE 87; TEMP 98.3
== END 2017-05-27 17:59 | disposition short-term general hospital (02) | DRG 377 ==
LOC: JER 07:05 → JERBED 09:26 → J4W 05-25 16:16
PROVIDERS: ADMIT Internal Medicine; ATTEND Nurse Practitioner Acute Care
PROC: 30233H1 Transfusion of Nonautologous Whole Blood into Peripheral Vein, Percutaneous Approach (ICD-10-PCS; principal; 2017-05-25)
DX: K92.2 Gastrointestinal hemorrhage, unspecified (principal); I50.23 Acute on chronic systolic (congestive) heart failure; N17.9 Acute kidney failure, unspecified; I42.9 Cardiomyopathy, unspecified; D62 Acute posthemorrhagic anemia; I11.0 Hypertensive heart disease with heart failure; E86.0 Dehydration; I48.0 Paroxysmal atrial fibrillation; E66.01 Morbid (severe) obesity due to excess calories; E11.9 Type 2 diabetes mellitus without complications; Z68.39 Body mass index [BMI] 39.0-39.9, adult; J44.9 Chronic obstructive pulmonary disease, unspecified; Z99.81 Dependence on supplemental oxygen; I25.10 Atherosclerotic heart disease of native coronary artery without angina pectoris; Z79.84 Long term (current) use of oral hypoglycemic drugs; E83.42 Hypomagnesemia; G47.33 Obstructive sleep apnea (adult) (pediatric); Z79.4 Long term (current) use of insulin; I95.9 Hypotension, unspecified; E78.5 Hyperlipidemia, unspecified; Z87.891 Personal history of nicotine dependence; Z95.810 Presence of automatic (implantable) cardiac defibrillator; Z95.5 Presence of coronary angioplasty implant and graft; R19.7 Diarrhea, unspecified; K29.70 Gastritis, unspecified, without bleeding; E66.9 Obesity, unspecified; Z79.01 Long term (current) use of anticoagulants
CPT/HCPCS: 36415; 36430; 71045-TC; 80048; 80053; 81003; 82550; 82962; 83010; 83615; 83735; 83880; 84100; 84484; 85025; 85027; 85044; 85610; 86850; 86900; 86901; 86922; 93005; 93010; 99285-25; P9038; P9058

== ENCOUNTER 2017-08-30 11:22 | Inpatient (IN) | payer OTHER ==
[2017-08-30] MEDS ORDERED: SODIUM CHLORIDE 1,000 ML IV STA (11:35)
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
[2017-08-30 11:37] VITALS: BMI 36.8
[2017-08-30 12:07] LABS: HEMATOCRIT 29.1 % (35.4-49); HEMOGLOBIN 9.3 GM/dL (11.7-16.9); INR 1.56 (0.82-1.09); MCH 28.2 pg (25.7-33.7); MCHC 32.1 g/dl (32.0-35.9); MEAN CELL VOLUME 87.7 fl (80-96); MEAN PLT VOLUME 10.6 fl (7.5-11.1); PLATELET COUNT 159 K/MM3 (134-434); PROTHROMBIN TIME (PATIENT) 17.6 SEC (9.98-11.88); RBC 3.32 M/mm3 (4.00-5.60); RDW 24.1 % (11.9-15.9); WHITE BLOOD COUNT 5.1 K/mm3 (4.0-10.0)
[2017-08-30 12:18] LABS: ALBUMIN 3.7 g/dl (3.4-5.0); ALK PHOS 75 U/L (45-117); ANION GAP 11 (8-16); BILIRUBIN,TOTAL 0.9 mg/dL (0.2-1.0); BLOOD UREA NITROGEN 43 mg/dL (7-18); CALCIUM 8.6 mg/dL (8.5-10.1); CHLORIDE 96 mmol/L (98-107); CO2 29 mmol/L (21-32); CREATININE 2.3 mg/dL (0.7-1.3); GLUCOSE,RANDOM 231 mg/dL (74-106); SGPT/ALT 24 U/L (12-78); SODIUM 136 mmol/L (136-145); TOT PROT 7.2 g/dl (6.4-8.2)
[2017-08-30 12:23] LABS: POTASSIUM 4.7 mmol/L (3.5-5.1); SGOT/AST 23 U/L (15-37)
[2017-08-30 12:39] LABS: ANISOCYTOSIS 3+; MACROCYTOSIS 1+; OVALOCYTE 1+; PLATELET ESTIMATE NORMAL; TARGET CELLS 1+; TEAR DROP CELLS 1+
[2017-08-30 13:41] LABS: N-TERMINAL BNP 1502.48 pg/ml (5-125)
--- NOTE | 2017-08-30 14:08 | PDOC ---
*Physical Exam - Vital Signs Last Vital Signs Temp Pulse Resp BP Pulse Ox 98.1 F 70 16 84/58 96 08/30/17 11:32 08/30/17 13:36 08/30/17 13:36 08/30/17 13:36 08/30/17 13:36 - Physical Exam Comments: 08/30/17 14:08 Pt seen by the Advanced Practice Provider under my direct supervision Ancillary studies reviewed I agree with plan as outlined by the Advanced Practice Provider ED Treatment Course - LABORATORY CBC & Chemistry Diagram: 08/30/17 11:45 08/30/17 11:45 - ADDITIONAL ORDERS Additional order review: Laboratory Results 08/30/17 08/30/17 08/30/17 11:45 11:45 11:45 PT with INR 17.60 H INR 1.56 H PTT (Actin FS) 32.0 Sodium 136 Potassium 4.7 Chloride 96 L Carbon Dioxide 29 Anion Gap 11 BUN 43 H Creatinine 2.3 H D Creat Clearance w eGFR 29.15 POC Glucometer Random Glucose 231 H Calcium 8.6 Total Bilirubin 0.9 D AST 23 D ALT 24 D Alkaline Phosphatase 75 Creatine Kinase 36 L Troponin I 0.02 B-Natriuretic Peptide 1502.48 H Total Protein 7.2 Albumin 3.7 Blood Type A NEGATIVE Antibody Screen Negative 08/30/17 11:31 PT with INR INR PTT (Actin FS) Sodium Potassium Chloride Carbon Dioxide Anion Gap BUN Creatinine Creat Clearance w eGFR POC Glucometer [id number] Random Glucose Calcium Total Bilirubin AST ALT Alkaline Phosphatase Creatine Kinase Troponin I B-Natriuretic Peptide Total Protein Albumin Blood Type Antibody Screen 08/30/17 08/30/17 11:45 11:31 RBC 3.32 L MCV 87.7 MCHC 32.1 RDW 24.1 H MPV 10.6 Neutrophils % No Result Required. Lymphocytes % No Result Required. POC Glucometer [id number] - Medications Given in the ED: ED Medications Discontinued Medications Generic Name Dose Route Start Last Admin Trade Name Freq PRN Reason Stop Dose Admin Sodium Chloride 1,000 mls @ 1,000 mls/hr 08/30/17 11:35 08/30/17 11:49 Normal Saline - IV 08/30/17 12:34 1,000 mls/hr ASDIR STA Administration *DC/Admit/Observation/Transfer Diagnosis at time of Disposition: Hypotension, HARMAN (acute kidney injury) - Discharge Dispostion Condition at time of disposition: Stable - Referrals - Patient Instructions - Post Discharge Activity
--- NOTE | 2017-08-30 14:24 | CONSULT ---
Consult - text type - Consultation Consultation Note: Pulm/CCM Pt seen in examined in ED CC: syncope HPI: 62 y/o man well known to this service/Institution with pmhx notable for obesity, SHELDON, End stage COPD on 3L NC chronic home o2, CAD s/p CABG, CHF EF 30% s/p AICD/P, DM, CKD (baseline Cr 1.5) recently hospitalized at beginning of this month for heart failure exacerbation and symptomatic anemia. Was transfused and started on ACEI as part of heart regimen. Pt states was feeling well on D/c but over last week has been weaker and a bit dizzy. In last 24hr c/ o fatigue but without clear localizing symptoms, no new sob, no chest pain, no fever, no melena, no BRBPR, no sick contacts. THis morning pt felt light headed but was able to have breakfast and go about his day. He was riding in car with family and upon exiting vehicle felt acutely dizzy and ultimately " passed out". He recalls the event, witness says no sz activity, and pt was quickly awake and back to baseline. He did not strike his head. Brother in law kept pt from completely "falling out". He was pale and weak. 911 was activated. Pt was transported by EMS to hospital without incident. In ED pt was awake, alert, without distress but feeling "washed out". BP 70/30, HR paced 70s, RR 20 unlabored,Spo2 93% on NC at 3L. Labs notable for Cr elevated at 2.5, BNP elevate at 1500, 1st trop neg at 0.02. CBC was stable since last admission. Pt got gentle fluid resuscitation as appeared dry, being cognizant of advanced heart failure. Pt and family convinced that ACEI was culprit in "causing" this syncopal event. Seen by hospitalist team and admitted to ICU for overnight observation. On arrival in ICU pt BP 87/46. Past Medical History Cardio/Vascular AFIB,CAD,CHF,HTN,Hyperlipdemia Pulmonary COPD,Sleep Apnea Renal/ Renal Inusuff Endocrine Diabetes Mellitus Past Surgical History Past Surgical History CABG,Stent Smoking History Smoking history Former smoker Aproximately how many 0 cigarettes per day If you are a former smoker, 2008 when did you quit? Alcohol/Substance Use Hx Alcohol Use No Social History Usual Living Arrangement With Spouse Home Medications Medication Instructions Recorded Eliquis 5 mg PO BID 08/11/17 Metformin HCl 1,000 mg PO BID 08/11/17 Carvedilol [Coreg -] 6.25 mg PO BID tablet 08/14/17 Furosemide [Lasix -] 40 mg PO BID@0600,1400 #60 tablet 08/14/17 Gabapentin [Neurontin -] 400 mg PO BID capsule 08/14/17 Insulin (Novolog) [Novolog Flexpen] See Protocol SQ ACHS #4 pen 08/14/17 Levothyroxine [Synthroid -] 25 mcg PO DAILY@0700 tablet 08/14/17 Lisinopril [Prinivil] 5 mg PO DAILY #30 tablet 08/14/17 Pantoprazole Sodium [Protonix -] 40 mg PO DAILY tablet.ec 08/14/17 Prednisone [Deltasone] 20 mg PO DAILY #30 tablet 08/14/17 Atorvastatin Calcium [Lipitor] 20 mg PO HS 08/30/17 Ferrous Sulfate [Iron] 325 mg PO DAILY 08/30/17 Potassium Chloride 20 meq PO DAILY 08/30/17 Tiotropium [place] [Spiriva] 18 mcg IH DAILY 08/30/17 CBCD WBC 5.1 K/mm3 (4.0-10.0) 08/30/17 11:45 RBC 3.32 M/mm3 (4.00-5.60) L 08/30/17 11:45 Hgb 9.3 GM/dL (11.7-16.9) L D 08/30/17 11:45 Hct 29.1 % (35.4-49) L D 08/30/17 11:45 MCV 87.7 fl (80-96) 08/30/17 11:45 MCHC 32.1 g/dl (32.0-35.9) 08/30/17 11:45 RDW 24.1 % (11.9-15.9) H 08/30/17 11:45 Plt Count 159 K/MM3 (134-434) 08/30/17 11:45 MPV 10.6 fl (7.5-11.1) 08/30/17 11:45 CMP Sodium 136 mmol/L (136-145) 08/30/17 11:45 Potassium 4.7 mmol/L (3.5-5.1) 08/30/17 11:45 Chloride 96 mmol/L (98-107) L 08/30/17 11:45 Carbon Dioxide 29 mmol/L (21-32) 08/30/17 11:45 Anion Gap 11 (8-16) 08/30/17 11:45 BUN 43 mg/dL (7-18) H 08/30/17 11:45 Creatinine 2.3 mg/dL (0.7-1.3) H D 08/30/17 11:45 Creat Clearance w eGFR 29.15 (>60) 08/30/17 11:45 Random Glucose 231 mg/dL (74-106) H 08/30/17 11:45 Calcium 8.6 mg/dL (8.5-10.1) 08/30/17 11:45 Total Bilirubin 0.9 mg/dL (0.2-1.0) D 08/30/17 11:45 AST 23 U/L (15-37) D 08/30/17 11:45 ALT 24 U/L (12-78) D 08/30/17 11:45 Alkaline Phosphatase 75 U/L (45-117) 08/30/17 11:45 Total Protein 7.2 g/dl (6.4-8.2) 08/30/17 11:45 Albumin 3.7 g/dl (3.4-5.0) 08/30/17 11:45 CARDIAC ENZYMES Creatine Kinase 36 IU/L (39-308) L 08/30/17 11:45 Troponin I 0.02 ng/ml (0.00-0.05) 08/30/17 11:45 Vital Signs Temp 98.1 F 08/30/17 11:32 Pulse 70 08/30/17 14:23 Resp 16 08/30/17 14:08 BP 83/58 08/30/17 14:23 Pulse Ox 96 08/30/17 13:36 Intake & Output 08/29/17 08/30/17 08/30/17 23:59 11:59 23:59 Weight 106.594 kg Other: Voiding Method Toilet Height 5 ft 7 in Body Mass Index (BMI) 36.8 Weight Measurement Method Est/Stated by Patient EKG: Vpaced at 72, unchaged ROS: 10 pt review negative except as per HPI PE: Gen; non toxic obese male, awake and without distress HEENT: PERRL, moist MM, no visible JVP, atraumatic PULM: Clear anterior, few crackles in R>L base, no wheezes CV: regular, III/ SYL LSB, AICD/p L chest without erythema ABD: Obese soft, EXT: trace edema, + pulses Neuro: non focal, CN II-XII grossly intact A/ 62 yo man with SHELDON, HL, DM, CAD s/p CABG/AICDp, CKD, anemia, advance COPD with evidence of cor pulmonale (RVSP 50s) now with syncope/hypotension possibly due to volume depletion and medication effect P/ -cont home o2 3L NC -tele -serial trop -trend Cr -hold BP meds -cont full A/c -cards to see/ Dr Root -CPAP at night -once BP improves Ok for floor/tele Carloz Braga [id number]
--- NOTE | 2017-08-30 15:21 | HP ---
CHIEF COMPLAINT: syncope, chest pain, symptomatic hypotension PCP: Dr. Kaufman, cardiology HISTORY OF PRESENT ILLNESS: Patient is a 62 year old male with a significant past medical history of severe systolic CHF with AICD, atrial fibrillation, CAD, CABG x 3, hypertension, hyperlipidemia, diabetes, COPD, obesity, severe obstructive sleep apnea (on CPAP at home) and GI bleed. He is home oxygen dependent at 3 liters and has CPAP at home. He comes to the ED today via EMS for feeling lightheaded. Patient told me that today he felt very lightheaded and when he got out of his car, he collapsed in the driveway. He denies LOC but felt very weak and lightheaded. He denies hitting his head but cannot fully remember if he did or not. On exam, he reports still feeling lightheaded and also experiencing intermittent midsternal chest pain that does not radiate, 6/10 in intensity. He denies shortness of breath. He attributes his lightheadedness and weakness to taking Lisinopril, a new medication that he started 8 days ago. His blood pressure in the ED was noted to be as low as 60/40s and 80/40s sitting and was accepted to the ICU overnight for closer monitoring. ER course was notable for: (1) bp 60/40s on admission (2) head ct pending (3) Cr 2.5, negative trop, bnp elevated Recent Travel: PAST MEDICAL HISTORY: PAST SURGICAL HISTORY: Social History: Smoking: Alcohol: Drugs: Family History: Allergies No Known Drug Allergies Allergy (Verified 08/30/17 11:31) HOME MEDICATIONS: Home Medications Medication Instructions Recorded Eliquis 5 mg PO BID 08/11/17 Metformin HCl 1,000 mg PO BID 08/11/17 Carvedilol [Coreg -] 6.25 mg PO BID tablet 08/14/17 Furosemide [Lasix -] 40 mg PO BID@0600,1400 #60 tablet 08/14/17 Gabapentin [Neurontin -] 400 mg PO BID capsule 08/14/17 Insulin (Novolog) [Novolog Flexpen] See Protocol SQ ACHS #4 pen 08/14/17 Levothyroxine [Synthroid -] 25 mcg PO DAILY@0700 tablet 08/14/17 Lisinopril [Prinivil] 5 mg PO DAILY #30 tablet 08/14/17 Pantoprazole Sodium [Protonix -] 40 mg PO DAILY tablet.ec 08/14/17 Prednisone [Deltasone] 20 mg PO DAILY #30 tablet 08/14/17 Atorvastatin Calcium [Lipitor] 20 mg PO HS 08/30/17 Ferrous Sulfate [Iron] 325 mg PO DAILY 08/30/17 Potassium Chloride 20 meq PO DAILY 08/30/17 Tiotropium [place] [Spiriva] 18 mcg IH DAILY 08/30/17 PHYSICAL EXAMINATION Vital Signs - 24 hr 08/30/17 08/30/17 08/30/17 11:32 11:57 13:01 Temperature 98.1 F Pulse Rate 68 Pulse Rate [ 68 71 Left Carotid] Pulse Rate [ Left side Sitting] Pulse Rate [ Standing] Pulse Rate [ Supine] Respiratory 20 16 16 Rate Blood Pressure 80/61 Blood Pressure 63/48 73/63 [Left Arm] Blood Pressure [Left side Sitting] Blood Pressure [Standing] Blood Pressure [Supine] O2 Sat by Pulse 92 L 96 98 Oximetry (%) 08/30/17 08/30/17 08/30/17 13:30 13:36 14:03 Temperature 97.8 F Pulse Rate 67 70 Pulse Rate [ 70 Left Carotid] Pulse Rate [ Left side Sitting] Pulse Rate [ Standing] Pulse Rate [ Supine] Respiratory 18 16 20 Rate Blood Pressure 84/58 87/56 Blood Pressure 84/58 [Left Arm] Blood Pressure [Left side Sitting] Blood Pressure [Standing] Blood Pressure [Supine] O2 Sat by Pulse 96 96 100 Oximetry (%) 08/30/17 08/30/17 14:08 14:23 Temperature Pulse Rate Pulse Rate [ 70 Left Carotid] Pulse Rate [ 74 Left side Sitting] Pulse Rate [ 70 Standing] Pulse Rate [ 70 Supine] Respiratory 16 Rate Blood Pressure Blood Pressure 85/52 [Left Arm] Blood Pressure 76/56 [Left side Sitting] Blood Pressure 84/60 [Standing] Blood Pressure 83/58 [Supine] O2 Sat by Pulse Oximetry (%) GENERAL: Awake, alert, and fully oriented, in no acute distress. HEAD: Normal with no signs of trauma, sensations of lightheadness EYES: Pupils equal, round and reactive to light, extraocular movements intact, sclera anicteric, conjunctiva clear. No lid lag. EARS, NOSE, THROAT: Ears normal, nares patent, oropharynx clear without exudates. Moist mucous membranes. NECK: Normal range of motion, supple without lymphadenopathy, JVD, or masses. LUNGS: Breath sounds equal, diminished bilaterally ABDOMEN: Soft, nontender, not distended, normoactive bowel sounds MUSCULOSKELETAL: Normal range of motion at all joints. No bony deformities or tenderness. No CVA tenderness. UPPER EXTREMITIES: 2+ pulses, warm, well-perfused. No cyanosis. No clubbing. No peripheral edema. LOWER EXTREMITIES: 2+ pulses, warm, well-perfused. No calf tenderness. No peripheral edema. NEUROLOGICAL: Normal speech. Normal gait. PSYCHIATRIC: Cooperative. Good eye contact. Appropriate mood and affect. SKIN: Warm, dry, normal turgor, no rashes or lesions noted, normal capillary refill. Laboratory Results - last 24 hr 08/30/17 08/30/17 08/30/17 11:31 11:45 11:45 WBC 5.1 RBC 3.32 L Hgb 9.3 L D Hct 29.1 L D MCV 87.7 MCH 28.2 MCHC 32.1 RDW 24.1 H Plt Count 159 MPV 10.6 Neutrophils % No Result Required. Neutrophils % (Manual) 69.9 Band Neutrophils % 0.0 Lymphocytes % No Result Required. Lymphocytes % (Manual) 20.4 D Monocytes % (Manual) 10 D Eosinophils % (Manual) 0.0 D Basophils % (Manual) 0.0 Myelocytes % (Man) 0 Promyelocytes % (Man) 0 Blast Cells % (Manual) 0 Nucleated RBC % 0 Metamyelocytes 0 Hypochromia 3+ Platelet Estimate Normal Anisocytosis 3+ Microcytosis 1+ Macrocytosis 1+ Target Cells 1+ Tear Drop Cells 1+ Ovalocytes 1+ PT with INR 17.60 H INR 1.56 H PTT (Actin FS) 32.0 Sodium Potassium Chloride Carbon Dioxide Anion Gap BUN Creatinine Creat Clearance w eGFR POC Glucometer [phone] Random Glucose Calcium Total Bilirubin AST ALT Alkaline Phosphatase Creatine Kinase Troponin I B-Natriuretic Peptide Total Protein Albumin Blood Type Antibody Screen 08/30/17 08/30/17 11:45 11:45 WBC RBC Hgb Hct MCV MCH MCHC RDW Plt Count MPV Neutrophils % Neutrophils % (Manual) Band Neutrophils % Lymphocytes % Lymphocytes % (Manual) Monocytes % (Manual) Eosinophils % (Manual) Basophils % (Manual) Myelocytes % (Man) Promyelocytes % (Man) Blast Cells % (Manual) Nucleated RBC % Metamyelocytes Hypochromia Platelet Estimate Anisocytosis Microcytosis Macrocytosis Target Cells Tear Drop Cells Ovalocytes PT with INR INR PTT (Actin FS) Sodium 136 Potassium 4.7 Chloride 96 L Carbon Dioxide 29 Anion Gap 11 BUN 43 H Creatinine 2.3 H D Creat Clearance w eGFR 29.15 POC Glucometer Random Glucose 231 H Calcium 8.6 Total Bilirubin 0.9 D AST 23 D ALT 24 D Alkaline Phosphatase 75 Creatine Kinase 36 L Troponin I 0.02 B-Natriuretic Peptide 1502.48 H Total Protein 7.2 Albumin 3.7 Blood Type A NEGATIVE Antibody Screen Negative ASSESSMENT/PLAN: Patient is a 62 year old male with a significant past medical history of severe systolic CHF with AICD, atrial fibrillation, CAD, CABG x 3, hypertension, hyperlipidemia, diabetes, COPD, obesity, severe obstructive sleep apnea (on CPAP at home) and GI bleed. He is home oxygen dependent at 3 liters and has CPAP at home. He comes to the ED today via EMS for feeling lightheaded. Patient told me that today he felt very lightheaded and when he got out of his car, he collapsed in the driveway. He denies LOC but felt very weak and lightheaded. He denies hitting his head but cannot fully remember if he did or not. On exam, he reports still feeling lightheaded and also experiencing intermittent midsternal chest pain that does not radiate, 6/10 in intensity. He denies shortness of breath. He attributes his lightheadedness and weakness to taking Lisinopril, a new medication that he started 8 days ago. His blood pressure in the ED was noted to be as low as 60/40s and 80/40s sitting and was accepted to the ICU for closer monitoring. Cardiology: Symptomatic hypotension Monitor BP in ICU Hold cardiac medications IVF hydration overnight with monitoring of respiratory status Blood and urine cultures ordered severe systolic CHF with AICD, chronic Monitor for fluid overload daily weights atrial fibrillation, chronic continue eliquis CAD CABG x 3, chronic hypertension, now with hypotension Hold cardiac meds Trend troponins hyperlipidemia, chronic Lipid panel in am. Endocrine: diabetes, chronic BGMs, SS, diabetic diet Pulm: COPD, chronic severe obstructive sleep apnea (on CPAP at home), chronic CPAP tonight F.E.N. Fluids: gently hydrate overnight Electrolytes: monitor Nutrition: diabetic diet Prophy: DVT: on Eliquis GI: [facility] Hospitalist Screening - Colonoscopy Questionnaire Colonoscopy Questionnaire: Colonoscopy Questionnaire
--- NOTE | 2017-08-30 15:28 | CON.CARD ---
Consult Consult Specialty:: Cardiology Reason for Consultation:: syncope - History of Present Illness History of Present Illness: HPI: 62 y/o man well known to this service/Institution with pmhx notable for obesity, SHELDON, End stage COPD on 3L NC chronic home o2, CAD s/p CABG, CHF EF 30% s/p AICD/P, DM, CKD (baseline Cr 1.5) recently hospitalized at beginning of this month for heart failure exacerbation and symptomatic anemia. Was transfused and started on ACEI as part of heart regimen. Pt states was feeling well on D/c but over last week has been weaker and a bit dizzy. In last 24hr c/ o fatigue but without clear localizing symptoms, no new sob, no chest pain, no fever, no melena, no BRBPR, no sick contacts. THis morning pt felt light headed but was able to have breakfast and go about his day. He was riding in car with family and upon exiting vehicle felt acutely dizzy and ultimately " passed out". He recalls the event, witness says no sz activity, and pt was quickly awake and back to baseline. He did not strike his head. Brother in law kept pt from completely "falling out". He was pale and weak. 911 was activated. Pt was transported by EMS to hospital without incident. In ED pt was awake, alert, without distress but feeling "washed out". BP 70/30, HR paced 70s, RR 20 unlabored,Spo2 93% on NC at 3L. Labs notable for Cr elevated at 2.5, BNP elevate at 1500, 1st trop neg at 0.02. CBC was stable since last admission. Pt got gentle fluid resuscitation as appeared dry, being cognizant of advanced heart failure. Pt and family convinced that ACEI was culprit in "causing" this syncopal event. Seen by hospitalist team and admitted to ICU for overnight observation. Diabetes Mellitus (DM) HTN hyperlipidemia obesity COPD obstructive sleep apnea syndrome (OSAS) paroxysmal atrial fibrillation (PAF) s/p CABG 06/2014 (denies hx VT), with moderately severe systolic LV dysfunction noted at [facility] on that admission-->ICD. - History Source History Provided By: Patient, Medical Record - Past Medical History Cardio/Vascular: Yes: AFIB, CAD, CHF, HTN, Hyperlipdemia Pulmonary: Yes: COPD, Sleep Apnea Renal/: Yes: Renal Inusuff (recent; ?prerenal azotemia) Endocrine: Yes: Diabetes Mellitus - Past Surgical History Past Surgical History: Yes: CABG, Stent (coronary) - Alcohol/Substance Use Hx Alcohol Use: No - Smoking History Smoking history: Former smoker Have you smoked in the past 12 months: No Aproximately how many cigarettes per day: 0 If you are a former smoker, when did you quit?: 2008 - Social History Usual Living Arrangement: With Spouse Home Medications - Allergies Allergies/Adverse Reactions: Allergies Allergy/AdvReac Type Severity Reaction Status Date / Time No Known Drug Allergies Allergy Verified 08/30/17 11:31 - Home Medications Home Medications: Ambulatory Orders Eliquis 5 mg PO BID 08/11/17 Metformin HCl 1,000 mg PO BID 08/11/17 Carvedilol [Coreg -] 6.25 mg PO BID tablet 08/14/17 Furosemide [Lasix -] 40 mg PO BID@0600,1400 #60 tablet 08/14/17 Gabapentin [Neurontin -] 400 mg PO BID capsule 08/14/17 Insulin (Novolog) [Novolog Flexpen] See Protocol SQ ACHS #4 pen 08/14/17 Levothyroxine [Synthroid -] 25 mcg PO DAILY@0700 tablet 08/14/17 Lisinopril [Prinivil] 5 mg PO DAILY #30 tablet 08/14/17 Pantoprazole Sodium [Protonix -] 40 mg PO DAILY tablet.ec 08/14/17 Prednisone [Deltasone] 20 mg PO DAILY #30 tablet 08/14/17 Atorvastatin Calcium [Lipitor] 20 mg PO HS 08/30/17 Ferrous Sulfate [Iron] 325 mg PO DAILY 08/30/17 Potassium Chloride 20 meq PO DAILY 08/30/17 Tiotropium [place] [Spiriva] 18 mcg IH DAILY 08/30/17 Review of Systems - Review of Systems Constitutional: reports: No Symptoms Eyes: reports: No Symptoms HENT: reports: No Symptoms Neck: reports: No Symptoms Cardiovascular: reports: No Symptoms Gastrointestinal: reports: No Symptoms Genitourinary: reports: No Symptoms Breasts: reports: No Symptoms Reported Musculoskeletal: reports: No Symptoms Integumentary: reports: No Symptoms Neurological: reports: Syncope Endocrine: reports: No Symptoms Hematology/Lymphatic: reports: No Symptoms Psychiatric: reports: No Symptoms Vital Signs: Vital Signs Temperature 97.8 F 04/22/18 14:03 Pulse Rate 70 08/30/17 14:23 Respiratory Rate 16 08/30/17 14:08 Blood Pressure 83/58 08/30/17 14:23 O2 Sat by Pulse Oximetry (%) 100 08/30/17 14:03 Constitutional: Yes: Well Nourished, No Distress, Calm Eyes: Yes: WNL, Conjunctiva Clear, EOM Intact HENT: Yes: WNL, Atraumatic, Normocephalic Neck: Yes: WNL, Supple, Trachea Midline Respiratory: Yes: WNL, Regular, CTA Bilaterally Gastrointestinal: Yes: WNL, Normal Bowel Sounds Renal/: Yes: WNL Cardiovascular: Yes: WNL, Regular Rate and Rhythm Musculoskeletal: Yes: WNL Extremities: Yes: WNL Integumentary: Yes: WNL Neurological: Yes: WNL, Alert, Oriented ...Motor Strength: WNL Psychiatric: Yes: WNL, Alert, Oriented - Other Data Labs, Other Data: CBC, BMP 08/30/17 11:45 08/30/17 11:45 INR, PTT INR 1.56 (0.82-1.09) H 08/30/17 11:45 Troponin, BNP 08/30/17 11:45 Troponin I 0.02 B-Natriuretic Peptide 1502.48 H Troponin, BNP 08/30/17 11:45 Troponin I 0.02 B-Natriuretic Peptide 1502.48 H Imaging - Results Chest X-ray: Pending EKG: Image Reviewed (v paced) Problem List - Problems (1) HARMAN (acute kidney injury) Code(s): N17.9 - ACUTE KIDNEY FAILURE, UNSPECIFIED (2) Hypotension Code(s): I95.9 - HYPOTENSION, UNSPECIFIED (3) Acute exacerbation of chronic obstructive pulmonary disease (COPD) Code(s): J44.1 - CHRONIC OBSTRUCTIVE PULMONARY DISEASE W (ACUTE) EXACERBATION (4) Acute on chronic respiratory failure with hypoxemia Code(s): J96.21 - ACUTE AND CHRONIC RESPIRATORY FAILURE WITH HYPOXIA (5) Acute on chronic systolic CHF (congestive heart failure) Code(s): I50.23 - ACUTE ON CHRONIC SYSTOLIC (CONGESTIVE) HEART FAILURE (6) Csxuo-el-cgnwanc kidney injury Code(s): N17.9 - ACUTE KIDNEY FAILURE, UNSPECIFIED; N18.9 - CHRONIC KIDNEY DISEASE, UNSPECIFIED (7) Anemia Code(s): D64.9 - ANEMIA, UNSPECIFIED (8) CAD (coronary artery disease) Code(s): I25.10 - ATHSCL HEART DISEASE OF [place] CORONARY ARTERY W/O ANG PCTRS (9) CHF (congestive heart failure) Code(s): I50.9 - HEART FAILURE, UNSPECIFIED (10) Chronic hypoxemic respiratory failure Code(s): J96.11 - CHRONIC RESPIRATORY FAILURE WITH HYPOXIA (11) DVT prophylaxis Code(s): [id number] - (12) Dehydration Code(s): E86.0 - DEHYDRATION (13) Diabetes Code(s): E11.9 - TYPE 2 DIABETES MELLITUS WITHOUT COMPLICATIONS Qualifiers: Diabetes mellitus type: type 2 (14) GI bleed Code(s): K92.2 - GASTROINTESTINAL HEMORRHAGE, UNSPECIFIED (15) Hx of CABG Code(s): Z95.1 - PRESENCE OF AORTOCORONARY BYPASS GRAFT (16) Melena Code(s): K92.1 - MELENA (17) Renal insufficiency Code(s): N28.9 - DISORDER OF KIDNEY AND URETER, UNSPECIFIED (18) Symptomatic anemia Code(s): D64.9 - ANEMIA, UNSPECIFIED (19) Symptomatic anemia Code(s): D64.9 - ANEMIA, UNSPECIFIED (20) Atrial fibrillation Code(s): I48.91 - UNSPECIFIED ATRIAL FIBRILLATION (21) Congestive heart failure with left ventricular systolic dysfunction Code(s): I50.20 - UNSPECIFIED SYSTOLIC (CONGESTIVE) HEART FAILURE (22) Diabetes Code(s): E11.9 - TYPE 2 DIABETES MELLITUS WITHOUT COMPLICATIONS (23) HTN (hypertension) Code(s): I10 - ESSENTIAL (PRIMARY) HYPERTENSION Qualifiers: (24) Hyperlipidemia Code(s): E78.5 - HYPERLIPIDEMIA, UNSPECIFIED Qualifiers: (25) Hypothyroid Code(s): E03.9 - HYPOTHYROIDISM, UNSPECIFIED Qualifiers: (26) Morbid obesity Code(s): E66.01 - MORBID (SEVERE) OBESITY DUE TO EXCESS CALORIES (27) Obstructive sleep apnea Code(s): G47.33 - OBSTRUCTIVE SLEEP APNEA (ADULT) (PEDIATRIC) (28) S/P implantation of automatic cardioverter/defibrillator (AICD) Code(s): Z95.810 - PRESENCE OF AUTOMATIC (IMPLANTABLE) CARDIAC DEFIBRILLATOR Assessment/Plan syncope CABG 06/2014 at [facility] (4VD) ICD 2016 Diabetes Mellitus (DM) HTN hyperlipidemia obesity COPD obstructive sleep apnea syndrome (OSAS) paroxysmal atrial fibrillation (PAF) s/p CABG 06/2014 (denies hx VT), with moderately severe systolic LV dysfunction noted at [facility] on that admission-->ICD Plan Cardiac galvan stable will interrogate ICD to r/o VT/VF syncope cc time spent 75 min
[2017-08-30] MEDS ORDERED: SODIUM CHLORIDE 1,000 ML IV SCH (18:15)
[2017-08-30] MEDS: APIXABAN 5 MG TABLET PO SCH (21:33)
[2017-08-30] MEDS: GABAPENTIN 400 MG CAPSULE (FP) PO SCH (21:33)
[2017-08-30] MEDS: MUPIROCIN 2% TOPICAL OINTMENT FOR DECOLONIZATION NS SCH (21:34)
[2017-08-30] MEDS ORDERED: ELIQUIS 5 MG PO SCH (22:00)
[2017-08-30] MEDS ORDERED: CHLORHEXIDINE GLUCONATE 4% CLEANSER FOR DECOLONIZATION TP SCH (22:00)
[2017-08-30] MEDS ORDERED: ATORVASTATIN CA 20 MG TABLET (FP) PO SCH (22:00)
[2017-08-30 23:50] LABS: URINE APPEARANCE SLCLOUDY; URINE BILIRUBIN NEGATIVE (<2.0 mg/dL); URINE BLOOD NEGATIVE (NEGATIVE); URINE COLOR YELLOW; URINE GLUCOSE (UA) NEGATIVE (NEGATIVE); URINE KETONE NEGATIVE (NEGATIVE); URINE LEUK ESTERASE TRACE (NEGATIVE); URINE NITRITE NEGATIVE (NEGATIVE); URINE PROTEIN NEGATIVE (NEGATIVE)
[2017-08-31 00:28] LABS: EPI CELLS RARE /HPF (FEW); URINE HYALINE CAST 20 /lpf; URINE MUCUS RARE
[2017-08-31] MEDS ORDERED: LEVOTHYROXINE NA 25 MCG TABLET (FP) PO SCH (07:00)
[2017-08-31 08:08] LABS: CHLORIDE 97 mmol/L (98-107); POTASSIUM 4.1 mmol/L (3.5-5.1); SODIUM 133 mmol/L (136-145)
[2017-08-31 08:32] LABS: ALBUMIN 3.4 g/dl (3.4-5.0); ALK PHOS 67 U/L (45-117); ANION GAP 7 (8-16); BLOOD UREA NITROGEN 39 mg/dL (7-18); CO2 29 mmol/L (21-32); CREATININE 1.8 mg/dL (0.7-1.3); GLUCOSE,RANDOM 281 mg/dL (74-106); MAGNESIUM 1.6 mg/dL (1.8-2.4); SGOT/AST 13 U/L (15-37); SGPT/ALT 21 U/L (12-78); TOT PROT 6.7 g/dl (6.4-8.2)
[2017-08-31 08:33] LABS: HEMATOCRIT 26.8 % (35.4-49); HEMOGLOBIN 8.6 GM/dL (11.7-16.9); MCH 28.2 pg (25.7-33.7); MCHC 32.2 g/dl (32.0-35.9); MEAN CELL VOLUME 87.5 fl (80-96); MEAN PLT VOLUME 10.3 fl (7.5-11.1); PLATELET COUNT 126 K/MM3 (134-434); RBC 3.07 M/mm3 (4.00-5.60); RDW 24.1 % (11.9-15.9); WHITE BLOOD COUNT 3.8 K/mm3 (4.0-10.0)
[2017-08-31] MEDS ORDERED: MAGNESIUM SULF 50% (8.12 MEQ/2 ML-1 GM VIAL) IVPB ONE ×2 (08:36→09:16)
[2017-08-31 09:14] LABS: ANISOCYTOSIS 2+; OVALOCYTE 1+; PLATELET ESTIMATE DECREASED; TARGET CELLS 1+
[2017-08-31] MEDS: APIXABAN 5 MG TABLET PO SCH ×2 (09:51→22:21)
[2017-08-31] MEDS: MUPIROCIN 2% TOPICAL OINTMENT FOR DECOLONIZATION NS SCH (09:51)
[2017-08-31] MEDS: GABAPENTIN 400 MG CAPSULE (FP) PO SCH ×2 (09:51→22:21)
[2017-08-31] MEDS ORDERED: MAGNESIUM 1GM/D5W - 1 GM/100 ML IVPB IVPB ONE (10:00)
[2017-08-31] MEDS ORDERED: PANTOPRAZOLE 40 MG TABLET (FP) PO SCH (10:00)
[2017-08-31] MEDS ORDERED: FERROUS SO4 325 MG TABLET (FP) PO SCH (10:00)
[2017-08-31] MEDS ORDERED: PATIENT'S OWN MEDICATION (NON-FORMULARY) (Ferrous Sulfate [Iron] 325 MG) PO SCH (10:00)
[2017-08-31] MEDS ORDERED: CARVEDILOL 6.25 MG TABLET (FP) PO SCH (10:00)
[2017-08-31] MEDS ORDERED: LISINOPRIL 5 MG TABLET (FP) PO SCH (10:00)
[2017-08-31] MEDS ORDERED: TIOTROPIUM BROMIDE 18 MCG CAPSULES IH SCH ×2 (10:00)
[2017-08-31] MEDS ORDERED: MAGNESIUM SULFATE IN WATER 2 GM/50 ML IVPB IVPB ONE (10:30)
--- NOTE | 2017-08-31 11:02 | PN ---
Progress Note, Physician History of Present Illness: HPI: 62 y/o man well known to this service/Institution with pmhx notable for obesity, SHELDON, End stage COPD on 3L NC chronic home o2, CAD s/p CABG, CHF EF 30% s/p AICD/P, DM, CKD (baseline Cr 1.5) recently hospitalized at beginning of this month for heart failure exacerbation and symptomatic anemia. Was transfused and started on ACEI as part of heart regimen. Pt states was feeling well on D/c but over last week has been weaker and a bit dizzy. In last 24hr c/ o fatigue but without clear localizing symptoms, no new sob, no chest pain, no fever, no melena, no BRBPR, no sick contacts. THis morning pt felt light headed but was able to have breakfast and go about his day. He was riding in car with family and upon exiting vehicle felt acutely dizzy and ultimately " passed out". He recalls the event, witness says no sz activity, and pt was quickly awake and back to baseline. He did not strike his head. Brother in law kept pt from completely "falling out". He was pale and weak. 911 was activated. Pt was transported by EMS to hospital without incident. In ED pt was awake, alert, without distress but feeling "washed out". BP 70/30, HR paced 70s, RR 20 unlabored,Spo2 93% on NC at 3L. Labs notable for Cr elevated at 2.5, BNP elevate at 1500, 1st trop neg at 0.02. CBC was stable since last admission. Pt got gentle fluid resuscitation as appeared dry, being cognizant of advanced heart failure. Pt and family convinced that ACEI was culprit in "causing" this syncopal event. Seen by hospitalist team and admitted to ICU for overnight observation. Diabetes Mellitus (DM) HTN hyperlipidemia obesity COPD obstructive sleep apnea syndrome (OSAS) paroxysmal atrial fibrillation (PAF) s/p CABG 06/2014 (denies hx ND), with moderately severe systolic LV dysfunction noted at [facility] on that admission-->ICD. - Current Medication List Current Medications: Active Medications Apixaban (Eliquis -) 5 mg PO BID [facility] Last Admin: 08/31/17 09:51 Dose: 5 mg Atorvastatin Calcium (Lipitor -) 20 mg PO HS [facility] Last Admin: 08/30/17 21:33 Dose: 20 mg Carvedilol (Coreg -) 6.25 mg PO BID [facility] Chlorhexidine Gluconate (Hibiclens For Decolonization -) 1 applic TP HS [facility] Last Admin: 08/30/17 21:34 Dose: 1 applic Ferrous Sulfate (Feosol -) 325 mg PO DAILY [facility] Last Admin: 08/31/17 09:51 Dose: 325 mg Gabapentin (Neurontin -) 400 mg PO BID [facility] Last Admin: 08/31/17 09:51 Dose: 400 mg Magnesium Sulfate (Magnesium Sulf 2 G/50 Ml Bag) 2 gm in 50 mls @ 50 mls/hr IVPB ONCE ONE Stop: 08/31/17 11:29 Levothyroxine Sodium (Synthroid -) 25 mcg PO DAILY@0700 [facility] Last Admin: 08/31/17 06:42 Dose: 25 mcg Lisinopril (Prinivil) 2.5 mg PO DAILY [facility] Mupirocin (Bactroban Ointment (For Decolonization) -) 1 applic NS BID [facility] Stop: 09/04/17 21:59 Last Admin: 08/31/17 09:51 Dose: 1 applic Pantoprazole Sodium (Protonix -) 40 mg PO DAILY [facility] Last Admin: 08/31/17 09:51 Dose: 40 mg Tiotropium [place] (Spiriva -) 1 puff IH DAILY [facility] - Objective Vital Signs: Vital Signs Temperature 97.8 F 08/31/17 05:48 Pulse Rate 73 08/31/17 08:00 Respiratory Rate 22 08/31/17 08:00 Blood Pressure 101/61 08/31/17 08:00 O2 Sat by Pulse Oximetry (%) 96 08/30/17 20:38 Eyes: Yes: WNL, Conjunctiva Clear, EOM Intact HENT: Yes: WNL, Atraumatic, Normocephalic Neck: Yes: WNL, Supple, Trachea Midline Cardiovascular: Yes: WNL, Regular Rate and Rhythm Respiratory: Yes: WNL, Regular, CTA Bilaterally Gastrointestinal: Yes: WNL, Normal Bowel Sounds Genitourinary: Yes: WNL Musculoskeletal: Yes: WNL Extremities: Yes: WNL Edema: No Integumentary: Yes: WNL Neurological: Yes: WNL, Alert, Oriented ...Motor Strength: WNL Psychiatric: Yes: WNL Labs: CBC, BMP 08/31/17 07:10 08/31/17 07:10 INR, PTT INR 1.56 (0.82-1.09) H 08/30/17 11:45 Problem List - Problems (1) HARMAN (acute kidney injury) Code(s): N17.9 - ACUTE KIDNEY FAILURE, UNSPECIFIED (2) Hypotension Code(s): I95.9 - HYPOTENSION, UNSPECIFIED (3) Acute exacerbation of chronic obstructive pulmonary disease (COPD) Code(s): J44.1 - CHRONIC OBSTRUCTIVE PULMONARY DISEASE W (ACUTE) EXACERBATION (4) Acute on chronic respiratory failure with hypoxemia Code(s): J96.21 - ACUTE AND CHRONIC RESPIRATORY FAILURE WITH HYPOXIA (5) Acute on chronic systolic CHF (congestive heart failure) Code(s): I50.23 - ACUTE ON CHRONIC SYSTOLIC (CONGESTIVE) HEART FAILURE (6) [id number] kidney injury Code(s): N17.9 - ACUTE KIDNEY FAILURE, UNSPECIFIED; N18.9 - CHRONIC KIDNEY DISEASE, UNSPECIFIED (7) Anemia Code(s): D64.9 - ANEMIA, UNSPECIFIED (8) CAD (coronary artery disease) Code(s): I25.10 - ATHSCL HEART DISEASE OF [place] CORONARY ARTERY W/O ANG PCTRS (9) CHF (congestive heart failure) Code(s): I50.9 - HEART FAILURE, UNSPECIFIED (10) Chronic hypoxemic respiratory failure Code(s): J96.11 - CHRONIC RESPIRATORY FAILURE WITH HYPOXIA (11) DVT prophylaxis Code(s): [id number] - (12) Dehydration Code(s): E86.0 - DEHYDRATION (13) Diabetes Code(s): E11.9 - TYPE 2 DIABETES MELLITUS WITHOUT COMPLICATIONS Qualifiers: Diabetes mellitus type: type 2 (14) GI bleed Code(s): K92.2 - GASTROINTESTINAL HEMORRHAGE, UNSPECIFIED (15) Hx of CABG Code(s): Z95.1 - PRESENCE OF AORTOCORONARY BYPASS GRAFT (16) Melena Code(s): K92.1 - MELENA (17) Renal insufficiency Code(s): N28.9 - DISORDER OF KIDNEY AND URETER, UNSPECIFIED (18) Symptomatic anemia Code(s): D64.9 - ANEMIA, UNSPECIFIED (19) Symptomatic anemia Code(s): D64.9 - ANEMIA, UNSPECIFIED (20) Atrial fibrillation Code(s): I48.91 - UNSPECIFIED ATRIAL FIBRILLATION (21) Congestive heart failure with left ventricular systolic dysfunction Code(s): I50.20 - UNSPECIFIED SYSTOLIC (CONGESTIVE) HEART FAILURE (22) Diabetes Code(s): E11.9 - TYPE 2 DIABETES MELLITUS WITHOUT COMPLICATIONS (23) HTN (hypertension) Code(s): I10 - ESSENTIAL (PRIMARY) HYPERTENSION Qualifiers: (24) Hyperlipidemia Code(s): E78.5 - HYPERLIPIDEMIA, UNSPECIFIED Qualifiers: (25) Hypothyroid Code(s): E03.9 - HYPOTHYROIDISM, UNSPECIFIED Qualifiers: (26) Morbid obesity Code(s): E66.01 - MORBID (SEVERE) OBESITY DUE TO EXCESS CALORIES (27) Obstructive sleep apnea Code(s): G47.33 - OBSTRUCTIVE SLEEP APNEA (ADULT) (PEDIATRIC) (28) S/P implantation of automatic cardioverter/defibrillator (AICD) Code(s): Z95.810 - PRESENCE OF AUTOMATIC (IMPLANTABLE) CARDIAC DEFIBRILLATOR Assessment/Plan syncope CABG 06/2014 at [facility] (4VD) ICD 2016 Diabetes Mellitus (DM) HTN hyperlipidemia obesity COPD obstructive sleep apnea syndrome (OSAS) paroxysmal atrial fibrillation (PAF) s/p CABG 06/2014 (denies hx ND), with moderately severe systolic LV dysfunction noted at [facility] on that admission-->ICD Plan Cardiac galvan stable will interrogate ICD to r/o VT/VF syncope cc time spent 36min
--- NOTE | 2017-08-31 11:08 | EKG ---
Test Reason : Blood Pressure : / mmHG Vent. Rate : 072 BPM Atrial Rate : 075 BPM P-R Int : 000 ms QRS Dur : 228 ms QT Int : 506 ms P-R-T Axes : 000 -76 097 degrees QTc Int : 554 ms Ventricular-paced rhythm WITH OCCASIONAL PREMATURE VENTRICULAR COMPLEXES ABNORMAL ECG WHEN COMPARED WITH ECG OF 11-AUG-2017 08:08, NO SIGNIFICANT CHANGE WAS FOUND Confirmed by REKHA REN MD ([id number]) on 08/31/2017 11:08:31 AM Referred By: Confirmed By:REKHA REN MD
--- NOTE | 2017-08-31 11:26 | PN ---
Physical Exam: SUBJECTIVE: Patient still feels dizzy when getting up but better than when he's admitted. No other complaint and no overnight acute event. OBJECTIVE: Vital Signs Period Temp Pulse Resp BP Sys/Villalobos Pulse Ox Last 24 Hr 97.8 F-98.4 F 67-74 16-22 63-107/47-81 92-100 GENERAL: The patient is awake, alert, and fully oriented, in no acute distress. EYES: PERRL, extraocular movements intact, sclera anicteric, conjunctiva clear. ENT: oropharynx clear without exudates, moist mucous membranes. NECK: no JVD LUNGS: Breath sounds equal, clear to auscultation bilaterally, no wheezes, no crackles, no accessory muscle use. HEART: RRR, S1, S2 without murmur, rub or gallop. ABDOMEN: Soft, nontender, nondistended, normoactive bowel sounds, no guarding, no rebound, no hepatosplenomegaly, no masses. EXTREMITIES: 2+ pulses, warm, well-perfused, no edema. SKIN: Warm, dry, normal turgor, no rashes or lesions noted Laboratory Results - last 24 hr 08/30/17 08/30/17 08/30/17 11:31 11:45 11:45 WBC 5.1 RBC 3.32 L Hgb 9.3 L D Hct 29.1 L D MCV 87.7 MCH 28.2 MCHC 32.1 RDW 24.1 H Plt Count 159 MPV 10.6 Neutrophils % No Result Required. Neutrophils % (Manual) 69.9 Band Neutrophils % 0.0 Lymphocytes % No Result Required. Lymphocytes % (Manual) 20.4 D Monocytes % (Manual) 10 D Eosinophils % (Manual) 0.0 D Basophils % (Manual) 0.0 Myelocytes % (Man) 0 Promyelocytes % (Man) 0 Blast Cells % (Manual) 0 Nucleated RBC % 0 Metamyelocytes 0 Hypochromia 3+ Platelet Estimate Normal Polychromasia Anisocytosis 3+ Microcytosis 1+ Macrocytosis 1+ Target Cells 1+ Tear Drop Cells 1+ Ovalocytes 1+ PT with INR 17.60 H INR 1.56 H PTT (Actin FS) 32.0 Sodium Potassium Chloride Carbon Dioxide Anion Gap BUN Creatinine Creat Clearance w eGFR POC Glucometer [phone] Random Glucose Hemoglobin A1c % Calcium Magnesium Total Bilirubin AST ALT Alkaline Phosphatase Creatine Kinase Troponin I B-Natriuretic Peptide Total Protein Albumin Triglycerides Cholesterol Total LDL Cholesterol HDL Cholesterol TSH Urine Color Urine Appearance Urine pH Ur Specific [place] Urine Protein Urine Glucose (UA) Urine Ketones Urine Blood Urine Nitrite Urine Bilirubin Urine Urobilinogen Ur Leukocyte Esterase Urine WBC (Auto) Urine RBC (Auto) Ur Epithelial Cells Hyaline Casts Urine Mucus Blood Type Antibody Screen 08/30/17 08/30/17 08/30/17 11:45 11:45 20:48 WBC RBC Hgb Hct MCV MCH MCHC RDW Plt Count MPV Neutrophils % Neutrophils % (Manual) Band Neutrophils % Lymphocytes % Lymphocytes % (Manual) Monocytes % (Manual) Eosinophils % (Manual) Basophils % (Manual) Myelocytes % (Man) Promyelocytes % (Man) Blast Cells % (Manual) Nucleated RBC % Metamyelocytes Hypochromia Platelet Estimate Polychromasia Anisocytosis Microcytosis Macrocytosis Target Cells Tear Drop Cells Ovalocytes PT with INR INR PTT (Actin FS) Sodium 136 Potassium 4.7 Chloride 96 L Carbon Dioxide 29 Anion Gap 11 BUN 43 H Creatinine 2.3 H D Creat Clearance w eGFR 29.15 POC Glucometer Random Glucose 231 H Hemoglobin A1c % Calcium 8.6 Magnesium Total Bilirubin 0.9 D AST 23 D ALT 24 D Alkaline Phosphatase 75 Creatine Kinase 36 L Troponin I 0.02 0.02 B-Natriuretic Peptide 1502.48 H Total Protein 7.2 Albumin 3.7 Triglycerides Cholesterol Total LDL Cholesterol HDL Cholesterol TSH Urine Color Urine Appearance Urine pH Ur Specific [place] Urine Protein Urine Glucose (UA) Urine Ketones Urine Blood Urine Nitrite Urine Bilirubin Urine Urobilinogen Ur Leukocyte Esterase Urine WBC (Auto) Urine RBC (Auto) Ur Epithelial Cells Hyaline Casts Urine Mucus Blood Type A NEGATIVE Antibody Screen Negative 08/30/17 08/31/17 08/31/17 23:30 07:10 07:10 WBC 3.8 L RBC 3.07 L Hgb 8.6 L Hct 26.8 L MCV 87.5 MCH 28.2 MCHC 32.2 RDW 24.1 H Plt Count 126 L D MPV 10.3 Neutrophils % No Result Required. Neutrophils % (Manual) 73.8 Band Neutrophils % 0.0 Lymphocytes % No Result Required. Lymphocytes % (Manual) 9.1 D Monocytes % (Manual) 11 H Eosinophils % (Manual) 1.0 D Basophils % (Manual) 0.0 Myelocytes % (Man) 2 D Promyelocytes % (Man) 0 Blast Cells % (Manual) 0 Nucleated RBC % 0 Metamyelocytes 0 Hypochromia 1+ Platelet Estimate Decreased Polychromasia 1+ Anisocytosis 2+ Microcytosis 1+ Macrocytosis Target Cells 1+ Tear Drop Cells Ovalocytes 1+ PT with INR INR PTT (Actin FS) Sodium 133 L Potassium 4.1 Chloride 97 L Carbon Dioxide 29 Anion Gap 7 L BUN 39 H Creatinine 1.8 H D Creat Clearance w eGFR 38.68 POC Glucometer Random Glucose 281 H D Hemoglobin A1c % Calcium 8.0 L Magnesium 1.6 L Total Bilirubin 1.0 AST 13 L D ALT 21 Alkaline Phosphatase 67 Creatine Kinase Troponin I B-Natriuretic Peptide Total Protein 6.7 Albumin 3.4 Triglycerides Cholesterol Total LDL Cholesterol HDL Cholesterol TSH Urine Color Yellow Urine Appearance Slcloudy Urine pH 5.0 Ur Specific [place] 1.015 Urine Protein Negative Urine Glucose (UA) Negative Urine Ketones Negative Urine Blood Negative Urine Nitrite Negative Urine Bilirubin Negative Urine Urobilinogen 2.0 Ur Leukocyte Esterase Trace Urine WBC (Auto) None Urine RBC (Auto) <1 Ur Epithelial Cells Rare Hyaline Casts 20 Urine Mucus Rare Blood Type Antibody Screen 08/31/17 08/31/17 07:10 07:10 WBC RBC Hgb Hct MCV MCH MCHC RDW Plt Count MPV Neutrophils % Neutrophils % (Manual) Band Neutrophils % Lymphocytes % Lymphocytes % (Manual) Monocytes % (Manual) Eosinophils % (Manual) Basophils % (Manual) Myelocytes % (Man) Promyelocytes % (Man) Blast Cells % (Manual) Nucleated RBC % Metamyelocytes Hypochromia Platelet Estimate Polychromasia Anisocytosis Microcytosis Macrocytosis Target Cells Tear Drop Cells Ovalocytes PT with INR INR PTT (Actin FS) Sodium Potassium Chloride Carbon Dioxide Anion Gap BUN Creatinine Creat Clearance w eGFR POC Glucometer Random Glucose Hemoglobin A1c % 9.3 H D Calcium Magnesium Total Bilirubin AST ALT Alkaline Phosphatase Creatine Kinase Troponin I B-Natriuretic Peptide Total Protein Albumin Triglycerides 91 D Cholesterol 151 Total LDL Cholesterol 100 HDL Cholesterol 46 TSH 2.32 D Urine Color Urine Appearance Urine pH Ur Specific [place] Urine Protein Urine Glucose (UA) Urine Ketones Urine Blood Urine Nitrite Urine Bilirubin Urine Urobilinogen Ur Leukocyte Esterase Urine WBC (Auto) Urine RBC (Auto) Ur Epithelial Cells Hyaline Casts Urine Mucus Blood Type Antibody Screen Active Medications Generic Name Dose Route Start Last Admin Trade Name Freq PRN Reason Stop Dose Admin Apixaban 5 mg 08/30/17 22:00 08/31/17 09:51 Eliquis - PO 5 mg BID JOSE Administration Atorvastatin Calcium 20 mg 08/30/17 22:00 08/30/17 21:33 Lipitor - PO 20 mg HS JOSE Administration Carvedilol 6.25 mg 08/31/17 10:00 Coreg - PO BID [facility] Chlorhexidine Gluconate 1 applic 08/30/17 22:00 08/30/17 21:34 Hibiclens For Decolonization - TP 1 applic HS JOSE Administration Ferrous Sulfate 325 mg 08/31/17 10:00 08/31/17 09:51 Feosol - PO 325 mg DAILY JOSE Administration Gabapentin 400 mg 08/30/17 22:00 08/31/17 09:51 Neurontin - PO 400 mg BID JOSE Administration Magnesium Sulfate 2 gm in 50 mls @ 50 mls/hr 08/31/17 10:30 Magnesium Sulf 2 G/50 Ml Bag IVPB 08/31/17 11:29 ONCE ONE Levothyroxine Sodium 25 mcg 08/31/17 07:00 08/31/17 06:42 Synthroid - PO 25 mcg DAILY@0700 [facility] Administration Lisinopril 2.5 mg 08/31/17 10:00 Prinivil PO DAILY [facility] Mupirocin 1 applic 08/30/17 22:00 08/31/17 09:51 Bactroban Ointment (For Decolonization) - NS 09/04/17 21:59 1 applic BID JOSE Administration Pantoprazole Sodium 40 mg 08/31/17 10:00 08/31/17 09:51 Protonix - PO 40 mg DAILY [facility] Administration Tiotropium [place] 1 puff 08/31/17 10:00 Spiriva - IH DAILY [facility] ASSESSMENT/PLAN: 62 yo M h/o COPD on home O2 3L, CAD s/p CABG, systolic CHF EF 30% s/p AICD, DM and CKD admitted to the ED syncope and later upgraded to the ICU for hypotension. CV: Syncope: hypotension from medications vs. arrythemia, pt recently started on lisinopril 5mg QD, [employer] will interrogate AICD, per cardiology, will restart pt on low dose lisinopril 2.5mg QD and coreg 6.25mg BID, cont. to hold lasix since pt doesn't appear fluid overloaded clinically. A-fib: cont. coreg and eliquis systolic CHF: I/O, daily weights, follow up CXR, cont. to hold lasix per cardiology Pulm: COPD and SHELDON: stable and cont. CPAP at night Endo: DM2: BGM and sliding scale Prophylaxis: on eliquis and zantac Dispo: transfer to telemetry Morris Ernst PGY2 Pager: [phone] Visit type - Emergency Visit Emergency Visit: No - New Patient This patient is new to me today: Yes Date on this admission: 08/31/17 - Critical Care Critical Care patient: Yes Total Critical Care Time (in minutes): 35 Critical Care Statement: The care of this patient involved high complexity decision making to prevent further life threatening deterioration of the patient 's condition and/or to evaluate & treat vital organ system(s) failure or risk of failure. - Discharge Referral Referred to [facility] Med P.C.: No
--- NOTE | 2017-08-31 11:53 | PN ---
Teaching Attending Note Name of Resident: Morris Ernst ATTENDING PHYSICIAN STATEMENT I saw and evaluated the patient. I reviewed the resident's note and discussed the case with the resident. I agree with the resident's findings and plan as documented. SUBJECTIVE: Pt seen and examined in the ICU. Feels better, close to baseline. No further dizziness or lightheadedness. OBJECTIVE: Last Vital Signs Temp Pulse Resp BP Pulse Ox 98 F 70 18 99/81 96 08/31/17 10:00 08/31/17 10:00 08/31/17 10:00 08/31/17 10:00 08/31/17 10:00 Intake & Output 08/28/17 08/29/17 08/30/17 08/31/17 23:59 23:59 23:59 23:59 Intake Total 200 Output Total 100 Balance -100 200 Weight 106.594 kg 110.4 kg Gen: NAD in chair Heart: RRR Lung: decreased breath sounds at the bases Abd: soft, nontender Ext: no edema CBC, BMP 08/31/17 07:10 08/31/17 07:10 Active Medications Apixaban (Eliquis -) 5 mg PO BID [facility] Last Admin: 08/31/17 09:51 Dose: 5 mg Atorvastatin Calcium (Lipitor -) 20 mg PO HS [facility] Last Admin: 08/30/17 21:33 Dose: 20 mg Carvedilol (Coreg -) 6.25 mg PO BID [facility] Chlorhexidine Gluconate (Hibiclens For Decolonization -) 1 applic TP HS [facility] Last Admin: 08/30/17 21:34 Dose: 1 applic Ferrous Sulfate (Feosol -) 325 mg PO DAILY [facility] Last Admin: 08/31/17 09:51 Dose: 325 mg Gabapentin (Neurontin -) 400 mg PO BID [facility] Last Admin: 08/31/17 09:51 Dose: 400 mg Insulin Aspart (Novolog Vial Sliding Scale -) 1 vial SQ ACHS [facility] PRN Reason: Protocol Levothyroxine Sodium (Synthroid -) 25 mcg PO DAILY@0700 [facility] Last Admin: 08/31/17 06:42 Dose: 25 mcg Lisinopril (Prinivil) 2.5 mg PO DAILY [facility] Mupirocin (Bactroban Ointment (For Decolonization) -) 1 applic NS BID [facility] Stop: 09/04/17 21:59 Last Admin: 08/31/17 09:51 Dose: 1 applic Pantoprazole Sodium (Protonix -) 40 mg PO DAILY [facility] Last Admin: 08/31/17 09:51 Dose: 40 mg Tiotropium [place] (Spiriva -) 1 puff IH DAILY [facility] ASSESSMENT AND PLAN: Syncope Hypotension Severe LV Systolic Dysfunction s/p ICD CAD s/p CABG Atrial Fibrillation Pulmonary HTN Acute on CKD COPD Chronic Hypoxic Respiratory Failure DM Hyperlipidemia SHELDON - resume BP meds per cardiology - rate controlled - continue anticoagulation - check CXR - inhaled bronchodilators - O2 to keep SpO2 >90% - can monitor on telemetry
--- NOTE | 2017-08-31 13:56 | PN ---
Physical Exam: SUBJECTIVE: Patient seen and examined OBJECTIVE: BP improved AICD interrogated Will start cardiac meds Patient and refusing lisinopril Vital Signs Period Temp Pulse Resp BP Sys/Villalobos Pulse Ox Last 24 Hr 97.8 F-98.4 F 70-74 16-22 74-117/47-81 96-100 GENERAL: Awake, alert, and fully oriented, in no acute distress. HEAD: Normal with no signs of trauma, sensations of lightheadness EYES: Pupils equal, round and reactive to light, extraocular movements intact, sclera anicteric, conjunctiva clear. No lid lag. EARS, NOSE, THROAT: Ears normal, nares patent, oropharynx clear without exudates. Moist mucous membranes. NECK: Normal range of motion, supple without lymphadenopathy, JVD, or masses. LUNGS: Breath sounds equal, diminished bilaterally ABDOMEN: Soft, nontender, not distended, normoactive bowel sounds MUSCULOSKELETAL: Normal range of motion at all joints. No bony deformities or tenderness. No CVA tenderness. UPPER EXTREMITIES: 2+ pulses, warm, well-perfused. No cyanosis. No clubbing. No peripheral edema. LOWER EXTREMITIES: 2+ pulses, warm, well-perfused. No calf tenderness. No peripheral edema. NEUROLOGICAL: Normal speech. Normal gait. PSYCHIATRIC: Cooperative. Good eye contact. Appropriate mood and affect. SKIN: Warm, dry, normal turgor, no rashes or lesions noted, normal capillary refill. Laboratory Results - last 24 hr 08/30/17 08/30/17 08/31/17 20:48 23:30 07:10 WBC 3.8 L RBC 3.07 L Hgb 8.6 L Hct 26.8 L MCV 87.5 MCH 28.2 MCHC 32.2 RDW 24.1 H Plt Count 126 L D MPV 10.3 Neutrophils % No Result Required. Neutrophils % (Manual) 73.8 Band Neutrophils % 0.0 Lymphocytes % No Result Required. Lymphocytes % (Manual) 9.1 D Monocytes % (Manual) 11 H Eosinophils % (Manual) 1.0 D Basophils % (Manual) 0.0 Myelocytes % (Man) 2 D Promyelocytes % (Man) 0 Blast Cells % (Manual) 0 Nucleated RBC % 0 Metamyelocytes 0 Hypochromia 1+ Platelet Estimate Decreased Polychromasia 1+ Anisocytosis 2+ Microcytosis 1+ Target Cells 1+ Ovalocytes 1+ Sodium Potassium Chloride Carbon Dioxide Anion Gap BUN Creatinine Creat Clearance w eGFR Random Glucose Hemoglobin A1c % Calcium Magnesium Total Bilirubin AST ALT Alkaline Phosphatase Troponin I 0.02 Total Protein Albumin Triglycerides Cholesterol Total LDL Cholesterol HDL Cholesterol TSH Urine Color Yellow Urine Appearance Slcloudy Urine pH 5.0 Ur Specific [place] 1.015 Urine Protein Negative Urine Glucose (UA) Negative Urine Ketones Negative Urine Blood Negative Urine Nitrite Negative Urine Bilirubin Negative Urine Urobilinogen 2.0 Ur Leukocyte Esterase Trace Urine WBC (Auto) None Urine RBC (Auto) <1 Ur Epithelial Cells Rare Hyaline Casts 20 Urine Mucus Rare 08/31/17 08/31/17 08/31/17 07:10 07:10 07:10 WBC RBC Hgb Hct MCV MCH MCHC RDW Plt Count MPV Neutrophils % Neutrophils % (Manual) Band Neutrophils % Lymphocytes % Lymphocytes % (Manual) Monocytes % (Manual) Eosinophils % (Manual) Basophils % (Manual) Myelocytes % (Man) Promyelocytes % (Man) Blast Cells % (Manual) Nucleated RBC % Metamyelocytes Hypochromia Platelet Estimate Polychromasia Anisocytosis Microcytosis Target Cells Ovalocytes Sodium 133 L Potassium 4.1 Chloride 97 L Carbon Dioxide 29 Anion Gap 7 L BUN 39 H Creatinine 1.8 H D Creat Clearance w eGFR 38.68 Random Glucose 281 H D Hemoglobin A1c % 9.3 H D Calcium 8.0 L Magnesium 1.6 L Total Bilirubin 1.0 AST 13 L D ALT 21 Alkaline Phosphatase 67 Troponin I Total Protein 6.7 Albumin 3.4 Triglycerides 91 D Cholesterol 151 Total LDL Cholesterol 100 HDL Cholesterol 46 TSH 2.32 D Urine Color Urine Appearance Urine pH Ur Specific [place] Urine Protein Urine Glucose (UA) Urine Ketones Urine Blood Urine Nitrite Urine Bilirubin Urine Urobilinogen Ur Leukocyte Esterase Urine WBC (Auto) Urine RBC (Auto) Ur Epithelial Cells Hyaline Casts Urine Mucus Active Medications Generic Name Dose Route Start Last Admin Trade Name Freq PRN Reason Stop Dose Admin Apixaban 5 mg 08/30/17 22:00 08/31/17 09:51 Eliquis - PO 5 mg BID JOSE Administration Atorvastatin Calcium 20 mg 08/30/17 22:00 08/30/17 21:33 Lipitor - PO 20 mg HS JOSE Administration Carvedilol 6.25 mg 08/31/17 10:00 08/31/17 13:40 Coreg - PO 6.25 mg BID JOSE Administration Chlorhexidine Gluconate 1 applic 08/30/17 22:00 08/30/17 21:34 Hibiclens For Decolonization - TP 1 applic HS JOSE Administration Ferrous Sulfate 325 mg 08/31/17 10:00 08/31/17 09:51 Feosol - PO 325 mg DAILY JOSE Administration Gabapentin 400 mg 08/30/17 22:00 08/31/17 09:51 Neurontin - PO 400 mg BID JOSE Administration Insulin Aspart 1 vial 08/31/17 16:30 Novolog Vial Sliding Scale - SQ ACHS [facility] Protocol Levothyroxine Sodium 25 mcg 08/31/17 07:00 08/31/17 06:42 Synthroid - PO 25 mcg DAILY@0700 JOSE Administration Lisinopril 2.5 mg 08/31/17 10:00 08/31/17 13:39 Prinivil PO 2.5 mg DAILY JOSE Administration Mupirocin 1 applic 08/30/17 22:00 08/31/17 09:51 Bactroban Ointment (For Decolonization) - NS 09/04/17 21:59 1 applic BID JOSE Administration Pantoprazole Sodium 40 mg 08/31/17 10:00 08/31/17 09:51 Protonix - PO 40 mg DAILY JOSE Administration Tiotropium [place] 1 puff 08/31/17 10:00 08/31/17 13:39 Spiriva - IH 1 puff DAILY JOSE Administration ASSESSMENT/PLAN: Patient is a 62 year old male with a significant past medical history of severe systolic CHF with AICD, atrial fibrillation, CAD, CABG x 3, hypertension, hyperlipidemia, diabetes, COPD, obesity, severe obstructive sleep apnea (on CPAP at home) and GI bleed. He is home oxygen dependent at 3 liters and has CPAP at home. He comes to the ED today via EMS for feeling lightheaded. Patient told me that today he felt very lightheaded and when he got out of his car, he collapsed in the driveway. He denies LOC but felt very weak and lightheaded. He denies hitting his head but cannot fully remember if he did or not. On exam, he reports still feeling lightheaded and also experiencing intermittent midsternal chest pain that does not radiate, 6/10 in intensity. He denies shortness of breath. He attributes his lightheadedness and weakness to taking Lisinopril, a new medication that he started 8 days ago. His blood pressure in the ED was noted to be as low as 60/40s and 80/40s sitting and was accepted to the ICU for closer monitoring. Cardiology: Symptomatic hypotension, resolved Monitor BP in ICU, can transfer to floor Restart cardiac meds, hold lisinopril as pt is refusing Blood and urine cultures ordered severe systolic CHF with AICD, chronic Monitor for fluid overload daily weights atrial fibrillation, chronic continue eliquis CAD CABG x 3, chronic hypertension, now with hypotension Resume cardiac meds and monitor Patient and refusing Lisinopril hyperlipidemia, chronic Lipid panel Renal Creatine baseline is 1.0, currently at 1.8 Renal consult Endocrine: diabetes, chronic BGMs, SS, diabetic diet Pulm: COPD, chronic severe obstructive sleep apnea (on CPAP at home), chronic CPAP tonight F.E.N. Fluids: discontinue ivf, encourage PO Electrolytes: monitor Nutrition: diabetic diet Prophy: DVT: on Eliquis GI: Zantac
[2017-08-31] MEDS ORDERED: INSULIN SLIDING SCALE (NOVOLOG) 1 VIAL SQ SCH (16:30)
[2017-08-31] MEDS ORDERED: CHLORHEXIDINE GLUCONATE 4% CLEANSER FOR DECOLONIZATION TP SCH (22:00)
[2017-08-31] MEDS ORDERED: MUPIROCIN 2% TOPICAL OINTMENT FOR DECOLONIZATION NS SCH (22:00)
[2017-08-31] MEDS ORDERED: ATORVASTATIN CA 20 MG TABLET (FP) PO SCH (22:00)
[2017-08-31] MEDS: CARVEDILOL 6.25 MG TABLET (FP) PO SCH (22:21)
[2017-08-31] MEDS: INSULIN SLIDING SCALE (NOVOLOG) 1 VIAL SQ SCH (22:22)
[2017-09-01] MEDS: INSULIN SLIDING SCALE (NOVOLOG) 1 VIAL SQ SCH ×2 (06:34→12:30)
[2017-09-01] MEDS ORDERED: LEVOTHYROXINE NA 25 MCG TABLET (FP) PO SCH (07:00)
[2017-09-01 07:41] LABS: HEMATOCRIT 27.7 % (35.4-49); HEMOGLOBIN 9.1 GM/dL (11.7-16.9); MCH 28.5 pg (25.7-33.7); MCHC 32.6 g/dl (32.0-35.9); MEAN CELL VOLUME 87.3 fl (80-96); MEAN PLT VOLUME 9.9 fl (7.5-11.1); PLATELET COUNT 137 K/MM3 (134-434); RBC 3.18 M/mm3 (4.00-5.60); RDW 24.2 % (11.9-15.9); WHITE BLOOD COUNT 3.9 K/mm3 (4.0-10.0)
[2017-09-01 08:07] LABS: CHLORIDE 98 mmol/L (98-107); POTASSIUM 4.6 mmol/L (3.5-5.1); SODIUM 133 mmol/L (136-145)
[2017-09-01 08:16] LABS: ALBUMIN 3.6 g/dl (3.4-5.0); ALK PHOS 70 U/L (45-117); ANION GAP 2 (8-16); BILIRUBIN,TOTAL 0.9 mg/dL (0.2-1.0); BLOOD UREA NITROGEN 33 mg/dL (7-18); CALCIUM 8.7 mg/dL (8.5-10.1); CO2 33 mmol/L (21-32); CREATININE 1.2 mg/dL (0.7-1.3); GLUCOSE,RANDOM 172 mg/dL (74-106); MAGNESIUM 2.1 mg/dL (1.8-2.4); SGOT/AST 14 U/L (15-37); SGPT/ALT 21 U/L (12-78)
--- NOTE | 2017-09-01 09:58 | PN ---
Progress Note, Physician History of Present Illness: HPI: 62 y/o man well known to this service/Institution with pmhx notable for obesity, SHELDON, End stage COPD on 3L NC chronic home o2, CAD s/p CABG, CHF EF 30% s/p AICD/P, DM, CKD (baseline Cr 1.5) recently hospitalized at beginning of this month for heart failure exacerbation and symptomatic anemia. Was transfused and started on ACEI as part of heart regimen. Pt states was feeling well on D/c but over last week has been weaker and a bit dizzy. In last 24hr c/ o fatigue but without clear localizing symptoms, no new sob, no chest pain, no fever, no melena, no BRBPR, no sick contacts. THis morning pt felt light headed but was able to have breakfast and go about his day. He was riding in car with family and upon exiting vehicle felt acutely dizzy and ultimately " passed out". He recalls the event, witness says no sz activity, and pt was quickly awake and back to baseline. He did not strike his head. Brother in law kept pt from completely "falling out". He was pale and weak. 911 was activated. Pt was transported by EMS to hospital without incident. In ED pt was awake, alert, without distress but feeling "washed out". BP 70/30, HR paced 70s, RR 20 unlabored,Spo2 93% on NC at 3L. Labs notable for Cr elevated at 2.5, BNP elevate at 1500, 1st trop neg at 0.02. CBC was stable since last admission. Pt got gentle fluid resuscitation as appeared dry, being cognizant of advanced heart failure. Pt and family convinced that ACEI was culprit in "causing" this syncopal event. Seen by hospitalist team and admitted to ICU for overnight observation. Diabetes Mellitus (DM) HTN hyperlipidemia obesity COPD obstructive sleep apnea syndrome (OSAS) paroxysmal atrial fibrillation (PAF) s/p CABG 06/2014 (denies hx [place]), with moderately severe systolic LV dysfunction noted at [facility] on that admission-->ICD. - Current Medication List Current Medications: Active Medications Apixaban (Eliquis -) 5 mg PO BID [facility] Last Admin: 08/31/17 22:21 Dose: 5 mg Atorvastatin Calcium (Lipitor -) 20 mg PO HS [facility] Last Admin: 08/31/17 22:21 Dose: 20 mg Carvedilol (Coreg -) 6.25 mg PO BID [facility] Last Admin: 08/31/17 22:21 Dose: 6.25 mg Ferrous Sulfate (Feosol -) 325 mg PO DAILY [facility] Gabapentin (Neurontin -) 400 mg PO BID [facility] Last Admin: 08/31/17 22:21 Dose: 400 mg Insulin Aspart (Novolog Vial Sliding Scale -) 1 vial SQ ACHS [facility] PRN Reason: Protocol Last Admin: 09/01/17 06:34 Dose: 2 units Levothyroxine Sodium (Synthroid -) 25 mcg PO DAILY@0700 [facility] Last Admin: 09/01/17 06:34 Dose: 25 mcg Pantoprazole Sodium (Protonix -) 40 mg PO DAILY [facility] Tiotropium [place] (Spiriva -) 1 puff IH DAILY [facility] - Objective Vital Signs: Vital Signs Temperature 98 F 09/01/17 06:00 Pulse Rate 60 09/01/17 06:00 Respiratory Rate 19 09/01/17 06:00 Blood Pressure 86/58 09/01/17 06:00 O2 Sat by Pulse Oximetry (%) 98 09/01/17 07:49 Eyes: Yes: WNL, Conjunctiva Clear, EOM Intact HENT: Yes: WNL, Atraumatic, Normocephalic Neck: Yes: WNL, Supple, Trachea Midline Cardiovascular: Yes: WNL, Regular Rate and Rhythm Respiratory: Yes: WNL, Regular, CTA Bilaterally Gastrointestinal: Yes: WNL, Normal Bowel Sounds Genitourinary: Yes: WNL Musculoskeletal: Yes: WNL Extremities: Yes: WNL Edema: No Integumentary: Yes: WNL Neurological: Yes: WNL, Alert, Oriented ...Motor Strength: WNL Psychiatric: Yes: WNL Labs: CBC, BMP 09/01/17 07:10 09/01/17 07:10 INR, PTT INR 1.56 (0.82-1.09) H 08/30/17 11:45 Problem List - Problems (1) HARMAN (acute kidney injury) Code(s): N17.9 - ACUTE KIDNEY FAILURE, UNSPECIFIED (2) Hypotension Code(s): I95.9 - HYPOTENSION, UNSPECIFIED (3) Acute exacerbation of chronic obstructive pulmonary disease (COPD) Code(s): J44.1 - CHRONIC OBSTRUCTIVE PULMONARY DISEASE W (ACUTE) EXACERBATION (4) Acute on chronic respiratory failure with hypoxemia Code(s): J96.21 - ACUTE AND CHRONIC RESPIRATORY FAILURE WITH HYPOXIA (5) Acute on chronic systolic CHF (congestive heart failure) Code(s): I50.23 - ACUTE ON CHRONIC SYSTOLIC (CONGESTIVE) HEART FAILURE (6) Xnjnn-zl-[id number] kidney injury Code(s): N17.9 - ACUTE KIDNEY FAILURE, UNSPECIFIED; N18.9 - CHRONIC KIDNEY DISEASE, UNSPECIFIED (7) Anemia Code(s): D64.9 - ANEMIA, UNSPECIFIED (8) CAD (coronary artery disease) Code(s): I25.10 - ATHSCL HEART DISEASE OF [place] CORONARY ARTERY W/O ANG PCTRS (9) CHF (congestive heart failure) Code(s): I50.9 - HEART FAILURE, UNSPECIFIED (10) Chronic hypoxemic respiratory failure Code(s): J96.11 - CHRONIC RESPIRATORY FAILURE WITH HYPOXIA (11) DVT prophylaxis Code(s): [id number] - (12) Dehydration Code(s): E86.0 - DEHYDRATION (13) Diabetes Code(s): E11.9 - TYPE 2 DIABETES MELLITUS WITHOUT COMPLICATIONS Qualifiers: Diabetes mellitus type: type 2 (14) GI bleed Code(s): K92.2 - GASTROINTESTINAL HEMORRHAGE, UNSPECIFIED (15) Hx of CABG Code(s): Z95.1 - PRESENCE OF AORTOCORONARY BYPASS GRAFT (16) Melena Code(s): K92.1 - MELENA (17) Renal insufficiency Code(s): N28.9 - DISORDER OF KIDNEY AND URETER, UNSPECIFIED (18) Symptomatic anemia Code(s): D64.9 - ANEMIA, UNSPECIFIED (19) Symptomatic anemia Code(s): D64.9 - ANEMIA, UNSPECIFIED (20) Atrial fibrillation Code(s): I48.91 - UNSPECIFIED ATRIAL FIBRILLATION (21) Congestive heart failure with left ventricular systolic dysfunction Code(s): I50.20 - UNSPECIFIED SYSTOLIC (CONGESTIVE) HEART FAILURE (22) Diabetes Code(s): E11.9 - TYPE 2 DIABETES MELLITUS WITHOUT COMPLICATIONS (23) HTN (hypertension) Code(s): I10 - ESSENTIAL (PRIMARY) HYPERTENSION Qualifiers: (24) Hyperlipidemia Code(s): E78.5 - HYPERLIPIDEMIA, UNSPECIFIED Qualifiers: (25) Hypothyroid Code(s): E03.9 - HYPOTHYROIDISM, UNSPECIFIED Qualifiers: (26) Morbid obesity Code(s): E66.01 - MORBID (SEVERE) OBESITY DUE TO EXCESS CALORIES (27) Obstructive sleep apnea Code(s): G47.33 - OBSTRUCTIVE SLEEP APNEA (ADULT) (PEDIATRIC) (28) S/P implantation of automatic cardioverter/defibrillator (AICD) Code(s): Z95.810 - PRESENCE OF AUTOMATIC (IMPLANTABLE) CARDIAC DEFIBRILLATOR Assessment/Plan syncope ? due to hypotension CABG 06/2014 at [facility] (4VD) ICD 2016 Diabetes Mellitus (DM) HTN hyperlipidemia obesity COPD obstructive sleep apnea syndrome (OSAS) paroxysmal atrial fibrillation (PAF) s/p CABG 06/2014 (denies hx [place]), with moderately severe systolic LV dysfunction noted at [facility] on that admission-->ICD Plan stable of TAIWO I interrogation of ICD was normal . no evidence of VT/VF d/c telemetry
[2017-09-01] MEDS ORDERED: TIOTROPIUM BROMIDE 18 MCG CAPSULES IH SCH (10:00)
[2017-09-01] MEDS ORDERED: PANTOPRAZOLE 40 MG TABLET (FP) PO SCH (10:00)
[2017-09-01] MEDS ORDERED: FERROUS SO4 325 MG TABLET (FP) PO SCH (10:00)
[2017-09-01] MEDS: CARVEDILOL 6.25 MG TABLET (FP) PO SCH ×2 (10:36→14:25)
[2017-09-01] MEDS: GABAPENTIN 400 MG CAPSULE (FP) PO SCH (10:37)
[2017-09-01] MEDS: APIXABAN 5 MG TABLET PO SCH (10:37)
--- NOTE | 2017-09-01 11:02 | PN ---
Progress Note, Physician History of Present Illness: pulmonary alert,nad,-cp,-sob,-lightheadedness - Current Medication List Current Medications: Active Medications Apixaban (Eliquis -) 5 mg PO BID [facility] Last Admin: 09/01/17 10:37 Dose: 5 mg Atorvastatin Calcium (Lipitor -) 20 mg PO HS [facility] Last Admin: 08/31/17 22:21 Dose: 20 mg Carvedilol (Coreg -) 6.25 mg PO BID [facility] Last Admin: 09/01/17 10:36 Dose: Not Given Ferrous Sulfate (Feosol -) 325 mg PO DAILY [facility] Last Admin: 09/01/17 10:37 Dose: 325 mg Gabapentin (Neurontin -) 400 mg PO BID [facility] Last Admin: 09/01/17 10:37 Dose: 400 mg Insulin Aspart (Novolog Vial Sliding Scale -) 1 vial SQ ACHS [facility] PRN Reason: Protocol Last Admin: 09/01/17 06:34 Dose: 2 units Levothyroxine Sodium (Synthroid -) 25 mcg PO DAILY@0700 [facility] Last Admin: 09/01/17 06:34 Dose: 25 mcg Pantoprazole Sodium (Protonix -) 40 mg PO DAILY [facility] Last Admin: 09/01/17 10:37 Dose: 40 mg Tiotropium [place] (Spiriva -) 1 puff IH DAILY [facility] Last Admin: 09/01/17 10:38 Dose: 1 inh - Objective Vital Signs: Vital Signs Temperature 98 F 09/01/17 06:00 Pulse Rate 60 09/01/17 06:00 Respiratory Rate 19 09/01/17 06:00 Blood Pressure 86/58 09/01/17 06:00 O2 Sat by Pulse Oximetry (%) 98 09/01/17 07:49 Constitutional: Yes: Well Nourished, Moderate Distress Eyes: Yes: WNL HENT: Yes: WNL Neck: Yes: WNL Cardiovascular: Yes: Pulse Irregular, S1, S2 Respiratory: Yes: CTA Bilaterally Gastrointestinal: Yes: Normal Bowel Sounds, Soft Extremities: Yes: WNL Edema: No Labs: CBC, BMP 09/01/17 07:10 09/01/17 07:10 INR, PTT INR 1.56 (0.82-1.09) H 08/30/17 11:45 Problem List - Problems (1) Hypotension Code(s): I95.9 - HYPOTENSION, UNSPECIFIED (2) Anemia Code(s): D64.9 - ANEMIA, UNSPECIFIED (3) CAD (coronary artery disease) Code(s): I25.10 - ATHSCL HEART DISEASE OF [place] CORONARY ARTERY W/O ANG PCTRS (4) Chronic hypoxemic respiratory failure Code(s): J96.11 - CHRONIC RESPIRATORY FAILURE WITH HYPOXIA (5) Diabetes Code(s): E11.9 - TYPE 2 DIABETES MELLITUS WITHOUT COMPLICATIONS Qualifiers: Diabetes mellitus type: type 2 (6) Atrial fibrillation Code(s): I48.91 - UNSPECIFIED ATRIAL FIBRILLATION (7) Diabetes Code(s): E11.9 - TYPE 2 DIABETES MELLITUS WITHOUT COMPLICATIONS (8) Morbid obesity Code(s): E66.01 - MORBID (SEVERE) OBESITY DUE TO EXCESS CALORIES (9) Obstructive sleep apnea Code(s): G47.33 - OBSTRUCTIVE SLEEP APNEA (ADULT) (PEDIATRIC) (10) S/P implantation of automatic cardioverter/defibrillator (AICD) Code(s): Z95.810 - PRESENCE OF AUTOMATIC (IMPLANTABLE) CARDIAC DEFIBRILLATOR (11) Syncope Code(s): R55 - SYNCOPE AND COLLAPSE Assessment/Plan ASSESSMENT AND PLAN: S/P Syncope Hypotension Severe LV Systolic Dysfunction s/p ICD CAD s/p CABG Atrial Fibrillation Pulmonary HTN Acute on CKD COPD Chronic Hypoxic Respiratory Failure DM Hyperlipidemia SHELDON - ac - rate controlled - continue anticoagulation - inhaled bronchodilators - O2 to keep SpO2 >90% DR ECHEVARRIA
--- NOTE | 2017-09-01 14:26 | DS ---
Physical Exam: SUBJECTIVE: Patient seen and examined at the bedside. Feels better, not dizzy. Has follow up appointment with Dr. Kaufman. OBJECTIVE: BP improved, hold Lisinopril Not orthostatic Head CT negative For d/c home today Vital Signs Period Temp Pulse Resp BP Sys/Villalobos Pulse Ox Last 24 Hr 98 F-98.4 F 60-72 16-21 86-105/54-66 95-99 PHYSICAL EXAM GENERAL: Awake, alert, and fully oriented, in no acute distress. HEAD: Normal with no signs of trauma EYES: Pupils equal, round and reactive to light, extraocular movements intact, sclera anicteric, conjunctiva clear. No lid lag. EARS, NOSE, THROAT: Ears normal, nares patent, oropharynx clear without exudates. Moist mucous membranes. NECK: Normal range of motion, supple without lymphadenopathy, JVD, or masses. LUNGS: Breath sounds equal, diminished bilaterally ABDOMEN: Soft, nontender, not distended, normoactive bowel sounds MUSCULOSKELETAL: Normal range of motion at all joints. No bony deformities or tenderness. No CVA tenderness. UPPER EXTREMITIES: 2+ pulses, warm, well-perfused. No cyanosis. No clubbing. No peripheral edema. LOWER EXTREMITIES: 2+ pulses, warm, well-perfused. No calf tenderness. No peripheral edema. NEUROLOGICAL: Normal speech. Normal gait. PSYCHIATRIC: Cooperative. Good eye contact. Appropriate mood and affect. SKIN: Warm, dry, normal turgor, no rashes or lesions noted, normal capillary refill. LABS Laboratory Results - last 24 hr 08/31/17 08/31/17 09/01/17 16:43 22:18 06:23 WBC RBC Hgb Hct MCV MCH MCHC RDW Plt Count MPV Sodium Potassium Chloride Carbon Dioxide Anion Gap BUN Creatinine Creat Clearance w eGFR POC Glucometer [id number] 191 194 Random Glucose Calcium Magnesium Total Bilirubin AST ALT Alkaline Phosphatase Total Protein Albumin 09/01/17 09/01/17 09/01/17 07:10 07:10 11:55 WBC 3.9 L RBC 3.18 L Hgb 9.1 L Hct 27.7 L MCV 87.3 MCH 28.5 MCHC 32.6 RDW 24.2 H Plt Count 137 MPV 9.9 Sodium 133 L Potassium 4.6 Chloride 98 Carbon Dioxide 33 H Anion Gap 2 L BUN 33 H Creatinine 1.2 D Creat Clearance w eGFR > 60 POC Glucometer 183 Random Glucose 172 H D Calcium 8.7 Magnesium 2.1 D Total Bilirubin 0.9 AST 14 L ALT 21 Alkaline Phosphatase 70 Total Protein 7.0 Albumin 3.6 HOSPITAL COURSE: Date of Admission:08/30/17 Date of Discharge: 09/01/17 Patient is a 62 year old male with a significant past medical history of severe systolic CHF with AICD, atrial fibrillation, CAD, CABG x 3, hypertension, hyperlipidemia, diabetes, COPD, obesity, severe obstructive sleep apnea (on CPAP at home) and GI bleed. He is home oxygen dependent at 3 liters and has CPAP at home. Patient presented to the ED with syncope and hypotension. Cardiology: Symptomatic hypotension, resolved Restarted cardiac meds, hold lisinopril as pt is refusing Blood and urine cultures negative Follow up with primary community assistant within 3-5 days for continuation of care Patient instructed to monitor his BP with his home cuff more often, especially in the morning severe systolic CHF with AICD, chronic daily weights atrial fibrillation, chronic continue eliquis CAD CABG x 3, chronic hypertension, presented with hypotension, BP improved Not orthostatic, Hypotension improving, patient informed to monitor BP at home with his home cuff Stopped Lisinopril hyperlipidemia, chronic Lipid panel Renal HARMAN, resolved Renal follow up outpatient Endocrine: diabetes, chronic BGMs, SS, diabetic diet Pulm: COPD, chronic severe obstructive sleep apnea (on CPAP at home), chronic Has CPAP at home Minutes to complete discharge: 45 Discharge Summary Reason For Visit: HYPOTENSION, ACUTE KIDNEY INJURY Current Active Problems HARMAN (acute kidney injury) (Acute) Hypotension (Acute) Syncope (Acute) Condition: Improved - Instructions Diet, Activity, Other Instructions: Mr. López You were admitted on 08/30/2017 for a low blood pressure and for syncope. Your head CT was negative which means it was normal. Please continue the cardiac medications that you take at home, but do not take the Lisinopril as we discussed. Please take your blood pressure at home in the mornings before taking the blood pressure medications. If your systolic number (top number) is less than 100, please wait before taking your medications and recheck your blood pressure after you have eaten and are more hydrated. Please get up slowly from going for a sitting to a standing position. If you continue to feel dizzy, please return to the ER for further evaluation. Please see Dr. Queen within 3-5 days from discharge. Please call me with any questions. [facility] @ [facility] [phone] Disposition: HOME - Home Medications Comprehensive Discharge Medication List: Ambulatory Orders Eliquis 5 mg PO BID 08/11/17 Metformin HCl 1,000 mg PO BID 08/11/17 Carvedilol [Coreg -] 6.25 mg PO BID tablet 08/14/17 Furosemide [Lasix -] 40 mg PO BID@0600,1400 #60 tablet 08/14/17 Gabapentin [Neurontin -] 400 mg PO BID capsule 08/14/17 Insulin (Novolog) [Novolog Flexpen -] See Protocol SQ ACHS #4 pen 08/14/17 Levothyroxine [Synthroid -] 25 mcg PO DAILY@0700 tablet 08/14/17 Pantoprazole Sodium [Protonix -] 40 mg PO DAILY tablet.ec 08/14/17 Prednisone [Deltasone] 20 mg PO DAILY #30 tablet 08/14/17 Atorvastatin Calcium [Lipitor] 20 mg PO HS 08/30/17 Ferrous Sulfate [Iron] 325 mg PO DAILY 08/30/17 Potassium Chloride 20 meq PO DAILY 08/30/17 Tiotropium [place] [Spiriva] 18 mcg IH DAILY 08/30/17 This patient is new to me today: No Emergency Visit: Yes ED Registration Date: 08/30/17 Care time: The patient presented to the Emergency Department on the above date and was hospitalized for further evaluation of their emergent condition. Critical Care patient: No - Discharge Referral Referred to [facility] Med [facility] No
[2017-09-01 15:20] VITALS: TEMP 98.1
[2017-09-01 15:21] VITALS: BP 88/52; PULSE 72
--- NOTE | 2017-09-01 15:42 | CONSULT ---
Consult Consult Specialty:: Nephrology Reason for Consultation:: HARMAN - History of Present Illness Chief Complaint: presented with light headedness History of Present Illness: Pt is a 62 year old male with pmhx of CHF, AICD, a-fib, CABG, Chol, DM, COPD, and COPD who presents to the er with feeling light headed. He was found to be in acute renal failure and I was called to evaluate him. He denies history of kidney disease. He denies nsaid use. He says his symptoms started when he started lisinopril. He denies history of nsaid use. He is awake and alert. His renal function has been improving over the last few days. He is eager to go home. He says he will follow with me as outpt. - History Source History Provided By: Patient - Past Medical History Cardio/Vascular: Yes: AFIB, CAD, CHF, HTN, Hyperlipdemia Pulmonary: Yes: COPD, Sleep Apnea Renal/: Yes: Renal Inusuff (recent; ?prerenal azotemia) Endocrine: Yes: Diabetes Mellitus - Past Surgical History Past Surgical History: Yes: CABG, Stent (coronary) - Alcohol/Substance Use Hx Alcohol Use: No - Smoking History Smoking history: Former smoker Have you smoked in the past 12 months: No Aproximately how many cigarettes per day: 0 If you are a former smoker, when did you quit?: 2008 - Social History Usual Living Arrangement: With Spouse Home Medications - Allergies Allergies/Adverse Reactions: Allergies Allergy/AdvReac Type Severity Reaction Status Date / Time No Known Drug Allergies Allergy Verified 08/30/17 11:31 - Home Medications Home Medications: Ambulatory Orders Eliquis 5 mg PO BID 08/11/17 Metformin HCl 1,000 mg PO BID 08/11/17 Carvedilol [Coreg -] 6.25 mg PO BID tablet 08/14/17 Furosemide [Lasix -] 40 mg PO BID@0600,1400 #60 tablet 08/14/17 Gabapentin [Neurontin -] 400 mg PO BID capsule 08/14/17 Insulin (Novolog) [Novolog Flexpen -] See Protocol SQ ACHS #4 pen 08/14/17 Levothyroxine [Synthroid -] 25 mcg PO DAILY@0700 tablet 08/14/17 Pantoprazole Sodium [Protonix -] 40 mg PO DAILY tablet.ec 08/14/17 Prednisone [Deltasone] 20 mg PO DAILY #30 tablet 08/14/17 Atorvastatin Calcium [Lipitor] 20 mg PO HS 08/30/17 Ferrous Sulfate [Iron] 325 mg PO DAILY 08/30/17 Potassium Chloride 20 meq PO DAILY 08/30/17 Tiotropium [place] [Spiriva] 18 mcg IH DAILY 08/30/17 Family Disease History - Family Disease History Family History: Denies Review of Systems - Review of Systems Constitutional: reports: Malaise Eyes: reports: No Symptoms HENT: reports: No Symptoms Neck: reports: No Symptoms Cardiovascular: reports: Edema Respiratory: reports: SOB on Exertion Gastrointestinal: reports: No Symptoms Genitourinary: reports: No Symptoms Musculoskeletal: reports: No Symptoms Integumentary: reports: No Symptoms Neurological: reports: No Symptoms Endocrine: reports: No Symptoms Hematology/Lymphatic: reports: No Symptoms Psychiatric: reports: No Symptoms Physical Exam Vital Signs: Vital Signs Temperature 98.1 F 09/01/17 10:00 Pulse Rate 72 09/01/17 13:11 Respiratory Rate 20 09/01/17 10:00 Blood Pressure 88/52 09/01/17 13:11 O2 Sat by Pulse Oximetry (%) 93 L 09/01/17 10:00 Constitutional: Yes: Calm Eyes: Yes: Conjunctiva Clear HENT: Yes: Atraumatic Cardiovascular: Yes: S1, S2 Respiratory: Yes: On Nasal O2, Rhonchi Gastrointestinal: Yes: Soft, Abdomen, Obese Renal/: Yes: WNL Musculoskeletal: Yes: WNL Edema: Yes Edema: LLE: 1+, RLE: 1+ Neurological: Yes: Oriented Psychiatric: Yes: Oriented Labs: CBC, BMP 09/01/17 07:10 09/01/17 07:10 Laboratory Tests 08/30/17 08/30/17 08/31/17 11:45 23:30 07:10 Sodium Potassium Chloride Carbon Dioxide Anion Gap BUN Creatinine 2.3 H D 1.8 H D Random Glucose Urine Protein Negative Urine Blood Negative 09/01/17 07:10 Sodium 133 L Potassium 4.6 Chloride 98 Carbon Dioxide 33 H Anion Gap 2 L BUN 33 H Creatinine 1.2 D Random Glucose 172 H D Urine Protein Urine Blood Imaging - Results Chest X-ray: Report Reviewed Problem List - Problems (1) HARMAN (acute kidney injury) Code(s): N17.9 - ACUTE KIDNEY FAILURE, UNSPECIFIED (2) Anemia Code(s): D64.9 - ANEMIA, UNSPECIFIED (3) CHF (congestive heart failure) Code(s): I50.9 - HEART FAILURE, UNSPECIFIED (4) Diabetes Code(s): E11.9 - TYPE 2 DIABETES MELLITUS WITHOUT COMPLICATIONS Assessment/Plan Impression 1. HARMAN 2. CHF 3. DM 4. CAD 5. HLD 6. obesity Plan - lisinopril held as his renal function had worsening - will need outpt follow up - will see pt next week - aviod nsaids - discussed meds - should get a renal ultrasound but he wants to do it as outpt
== END 2017-09-01 15:09 | disposition home or self-care (01) | DRG 315 ==
LOC: JER 11:22 → JERBED 14:03 → JICU 14:42 → J4W 08-31 20:34
PROVIDERS: ADMIT Internal Medicine; ATTEND Nurse Practitioner Family
DX: I95.9 Hypotension, unspecified (principal); N17.9 Acute kidney failure, unspecified; J96.11 Chronic respiratory failure with hypoxia; I13.0 Hypertensive heart and chronic kidney disease with heart failure and stage 1 through stage 4 chronic kidney disease, or unspecified chronic kidney disease; I50.20 Unspecified systolic (congestive) heart failure; I25.10 Atherosclerotic heart disease of native coronary artery without angina pectoris; E11.22 Type 2 diabetes mellitus with diabetic chronic kidney disease; N18.9 Chronic kidney disease, unspecified; E78.5 Hyperlipidemia, unspecified; J44.9 Chronic obstructive pulmonary disease, unspecified; G47.33 Obstructive sleep apnea (adult) (pediatric); E66.9 Obesity, unspecified; Z68.38 Body mass index [BMI] 38.0-38.9, adult; I48.0 Paroxysmal atrial fibrillation; I27.20 Pulmonary hypertension, unspecified; R55 Syncope and collapse; Z95.5 Presence of coronary angioplasty implant and graft; Z95.810 Presence of automatic (implantable) cardiac defibrillator; Z95.1 Presence of aortocoronary bypass graft; Z87.891 Personal history of nicotine dependence
CPT/HCPCS: 36415; 70450-TC; 71045-TC-FY; 80053; 80061; 81003; 81015; 82550; 82962; 83036; 83721; 83735; 83880; 84443; 84484; 85025; 85027; 85610; 85730; 86850; 86900; 86901; 87040; 87086; 93005; 93010; 94660; 99285-25; J7030

== ENCOUNTER 2018-01-11 07:15 | Emergency (ER) | payer OTHER ==
[2018-01-11 07:21] VITALS: BP 121/55; PULSE 73; TEMP 98.5; BMI 38.5
--- NOTE | 2018-01-11 07:58 | PDOC ---
History of Present Illness <Esperanza Ramirez - Last Filed: 01/11/18 10:11> - General History Source: Patient Exam Limitations: No Limitations - History of Present Illness Initial Comments: 01/11/18 07:57 62y M hx of ZCOPD on 3L of NC at baseline, SHELDON, CAD sp cABG, afib (eliquis 5mg bid), chf, htn, hl, obesity, presents with 1 week of SOB more than usual. The patient has noted that he has felt slightly more dyspneic when ambulating, also endorses occasional increased nonproductive cough as well as mild orthopnea. Pt notes he always feels dyspneic when ambulating, but feels slightyl more so the past week. The patient endorses symptoms slightly increased lower extremity edema. He denies any chest pain, hemoptysis, calf pain, abdominal pain, back pain, nausea, vomiting, fever, chills. 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 Patient denies any diarrhea, melena, BPR, dysura. Card: Dr. Valle <Ranulfo Corea - Last Filed: 01/11/18 12:06> - General Chief Complaint: Shortness of Breath Stated Complaint: SWOLLEN ANKLES/BREATHING DIFFICULTY Time Seen by Provider: 01/11/18 07:24 Past History <Esperanza Ramirez - Last Filed: 01/11/18 10:11> - Past Medical History Anemia: Yes Cardiac Disorders: Yes (cardiac stent, PACEMAKER-DEFIB, cardiomyopathy, CABG 4) COPD: Yes (3 L o2) CHF: Yes Diabetes: Yes HTN: No (LOW BP) Hypercholesterolemia: Yes - Surgical History Cardiac Surgery: Yes (cardiac stent x1, CAGB 4, PACEMAKER/DEFIB) Orthopedic Surgery: No - Immunization History Immunization Up to Date: Yes - Suicide/Smoking/Psychosocial Hx Smoking Status: No Smoking History: Unknown if ever smoked Years of Tobacco Use: 20 Have you smoked in the past 12 months: No Number of Cigarettes Smoked Daily: 0 If you are a former smoker, when did you quit?: 2008 Information on smoking cessation initiated: No 'Breaking Loose' booklet given: 05/30/12 Hx Alcohol Use: No Drug/Substance Use Hx: No Substance Use Type: None Hx Substance Use Treatment: No <Nahomy,Ranulfo - Last Filed: 01/11/18 12:06> - Past Medical History Allergies/Adverse Reactions: Allergies Allergy/AdvReac Type Severity Reaction Status Date / Time No Known Drug Allergies Allergy Verified 01/11/18 07:17 Home Medications: Ambulatory Orders Aspirin 81 mg PO DAILY 01/11/18 Atorvastatin Ca [Lipitor] 20 mg PO HS 01/11/18 Carvedilol 3.125 mg PO DAILY 01/11/18 Carvedilol [Coreg -] 3.125 mg PO BID 01/11/18 Furosemide [Lasix] 20 mg PO BID 01/11/18 Gabapentin 400 mg PO BID 01/11/18 Iron,Carb/Vit C/Vit B12/Folic [Iron 100 Plus Tablet] 1 each PO DAILY 01/11/18 Levothyroxine [Synthroid -] 25 mcg PO DAILY 01/11/18 Lisinopril [Zestril] 2.5 mg PO BID 01/11/18 Magnesium Gluconate 500 gm PO BID 01/11/18 Metformin HCl [Metformin HCl ER] 1,000 mg PO BID 01/11/18 Pantoprazole Sodium 40 mg PO DAILY 01/11/18 Potassium Chloride 20 meq PO BID 01/11/18 Prednisone [Deltasone] 20 mg PO DAILY 01/11/18 Spironolactone 25 mg PO DAILY 01/11/18 Respiratory Specific PMHX - Complaint Specific PMHX Angina: No Pulmonary Embolus: No <Ranulfo Corea - Last Filed: 01/11/18 12:06> Review of Systems - Review of Systems Able to Perform ROS?: Yes Comments:: 01/11/18 08:31 Constitutional - no reported Fever, Chills, HEENT: no reported vision changes, sore throat Respiratory: +sob, no reported cough, hemoptysis Cardiac: +leg swelling no reported chest pain, palpitations, light headedness, Abd/GI: no reported abd pain, nausea, vomiting, blood per rectum, melena, diarrhea : no reported dysuria, frequency, discharge Musculskelatal - no reported back pain, joint swelling skin - no reported bruising, erythema, rash neurological: no reported headache, numbness, focal weakness, tingling, ataxia, hematologic: no reported easy bruising, easy bleeding <Ranulfo Corea - Last Filed: 01/11/18 12:06> *Physical Exam - Vital Signs Last Vital Signs Temp Pulse Resp BP Pulse Ox 98.5 F 73 24 121/55 92 L 01/11/18 07:17 01/11/18 07:17 01/11/18 07:17 01/11/18 07:17 01/11/18 07:17 <Esperanza Ramirez - Last Filed: 01/11/18 10:11> - Vital Signs Last Vital Signs Temp Pulse Resp BP Pulse Ox 98.5 F 73 24 121/55 92 L 01/11/18 07:17 01/11/18 07:17 01/11/18 07:17 01/11/18 07:17 01/11/18 07:17 - Physical Exam Comments: 01/11/18 08:31 GENERAL: The patient is awake, alert, and fully oriented, Nontoxic - in no acute distress, obese HEAD: Normocephalic, atraumatic. EYES: extraocular movements intact, sclera anicteric, conjunctiva clear. ENT: Normal voice, Moist mucous membranes. NECK: Normal range of motion, supple LUNGS: slight wheezing in R lung, moving air well HEART: Regular rate and rhythm, normal S1 and S2 without murmur, rub or gallop. ABDOMEN: Soft, nontender, normoactive bowel sounds. No guarding, no rebound. No CVA tenderness EXTREMITIES: Normal range of motion, trace edema b/l. ecchymosis/abrasion that is not warm or tender to palpation on R inner evangelista NEUROLOGICAL: No facial assymetry, Normal speech, moving all 4 extremities spontaneously and symmetrically PSYCH: Normal mood, normal affect. SKIN: Warm, Dry, normal turgor, <Ranulfo Corea - Last Filed: 01/11/18 12:06> Heart Score/ECG Review - ECG Impressions Comment:: 01/11/18 08:32 Twelve-lead EKG was performed and reviewed by me. Ventricular rate paced rhythm No signs of STEMI via Sgarbossa criteria <Ranulfo Corea - Last Filed: 01/11/18 12:06> ED Treatment Course - LABORATORY CBC & Chemistry Diagram: 01/11/18 08:11 01/11/18 08:11 - ADDITIONAL ORDERS Additional order review: Laboratory Results 01/11/18 01/11/18 08:11 08:11 VBG pH 7.42 POC VBG pCO2 43.2 POC VBG pO2 51.4 H Mixed VBG HCO3 27.8 H Sodium 139 Potassium 4.4 Chloride 102 Carbon Dioxide 29 Anion Gap 8 BUN 31 H Creatinine 1.4 H Creat Clearance w eGFR 51.69 Random Glucose 209 H D Calcium 8.5 Total Bilirubin 1.3 H AST 16 ALT 19 Alkaline Phosphatase 102 Creatine Kinase 79 Troponin I 0.02 B-Natriuretic Peptide 1597.57 H Total Protein 7.0 Albumin 3.3 L 01/11/18 08:11 RBC 3.13 L MCV 92.2 MCHC 31.9 L RDW 25.4 H MPV 8.1 D Neutrophils % No Result Required. Lymphocytes % No Result Required. - Medications Given in the ED: ED Medications Discontinued Medications Generic Name Dose Route Start Last Admin Trade Name Freq PRN Reason Stop Dose Admin Albuterol/Ipratropium 1 amp 01/11/18 08:02 01/11/18 08:39 Duoneb - NEB 01/11/18 08:03 1 amp ONCE ONE Administration - Additional Consults Time Called: 10:12 Consult/PCP: Paged Dr. Valle - cardiology <Esperanza Ramirez - Last Filed: 01/11/18 10:11> - LABORATORY CBC & Chemistry Diagram: 01/11/18 08:11 01/11/18 08:11 <Ranulfo Corea - Last Filed: 01/11/18 12:06> Medical Decision Making - Medical Decision Making 01/11/18 08:33 Differential for the patient's shortness of breath includes possible COPD exacerbation, CHF, HARMAN, acs Will obtain chest x-ray, blood work including CBC, CMP, BNP, VBG, troponin ekg will give neb will reassess 01/11/18 10:01 pt feels improved labs reviewed seem to be at baseline cxr neg for any acute processes will discuss with dr. Valle regarding disposition suspect mild chf exacerbation with his orthopnea. 01/11/18 11:34 Dr valle was bedside evaluating the pt feels pt is safe to be dc and is at his baseline will have him fu with his appointments as scheduled with himself, dr. link, pmd , chf center return precautions were discused I discussed the physical exam findings, ancillary test results and final diagnoses with the patient. I answered all of the patient's questions. The patient was satisfied with the care received and felt comfortable with the discharge plan and treatment plan. The patient will call their primary care physician within 24 hours to arrange follow-up and will return to the Emergency Department with any new, persistent or worsening symptoms. <Ranulfo Corea - Last Filed: 01/11/18 12:06> *DC/Admit/Observation/Transfer <Esperanza Ramirez - Last Filed: 01/11/18 10:11> - Discharge Dispostion Decision to Admit order: No <Ranulfo Corea - Last Filed: 01/11/18 12:06> Diagnosis at time of Disposition: Shortness of breath - Discharge Dispostion Disposition: HOME Condition at time of disposition: Improved - Referrals Referrals: Jayme Salgado MD [Staff Physician] - Morris Valle MD [Staff Physician] - - Patient Instructions Printed Discharge Instructions: DI for Shortness of Breath Additional Instructions: Return to the emergency department immediately with ANY new, persistent or worsening symptoms including worsening shortness of breath, chest pain or othe rconcerns. Use your oxygen as prescribed by your doctor. You MUST call and follow up with Dr. Link, Dr. Valle and Dr. Salgado for further evaluation of your symptoms. Results were discussed with you. Please make sure your doctor reviews the results of your emergency evaluation. Print Language: WOLOF
[2018-01-11] MEDS ORDERED: ALBUTEROL SO4 2.5/IPRATROPIUM 0.5 INH SOL 3 ML VIAL.NEB. NEB ONE ×2 (08:02→08:33)
[2018-01-11 08:21] LABS: HEMATOCRIT 28.9 % (35.4-49); HEMOGLOBIN 9.2 GM/dL (11.7-16.9); MCH 29.5 pg (25.7-33.7); MCHC 31.9 g/dl (32.0-35.9); MEAN CELL VOLUME 92.2 fl (80-96); MEAN PLT VOLUME 8.1 fl (7.5-11.1); PLATELET COUNT 160 K/MM3 (134-434); RBC 3.13 M/mm3 (4.00-5.60); RDW 25.4 % (11.9-15.9); WHITE BLOOD COUNT 4.2 K/mm3 (4.0-10.0)
[2018-01-11 08:39] LABS: ALBUMIN 3.3 g/dl (3.4-5.0); ANION GAP 8 MMOL/L (8-16); BILIRUBIN,TOTAL 1.3 mg/dL (0.2-1.0); BLOOD UREA NITROGEN 31 mg/dL (7-18); CALCIUM 8.5 mg/dL (8.5-10.1); CHLORIDE 102 mmol/L (98-107); CO2 29 mmol/L (21-32); CREATININE 1.4 mg/dL (0.7-1.3); GLUCOSE,RANDOM 209 mg/dL (74-106); POTASSIUM 4.4 mmol/L (3.5-5.1); SGOT/AST 16 U/L (15-37); SGPT/ALT 19 U/L (12-78); SODIUM 139 mmol/L (136-145)
[2018-01-11 08:40] LABS: ALK PHOS 102 U/L (45-117)
[2018-01-11 08:47] LABS: VENOUS PC02 43.2 mmHg (38-52); VENOUS PH 7.42 (7.32-7.42); VENOUS PO2 51.4 mmHg (28-48)
[2018-01-11 09:36] LABS: N-TERMINAL BNP 1597.57 pg/ml (5-125)
[2018-01-11 11:27] LABS: ANISOCYTOSIS 2+; MACROCYTOSIS 1+
[2018-01-11 11:28] LABS: OVALOCYTE 1+; PLATELET ESTIMATE ADEQUATE
--- NOTE | 2018-01-11 11:30 | CON.CARD ---
Consult Consult Specialty:: cardiology Reason for Consultation:: shortness of breath; hx systolic CHF - History of Present Illness Chief Complaint: Pt A&Ox3; ambulatory; no chest pain; chronic dyspnea on mild exertion History of Present Illness: 62yo white evi with PM hx of COPD on 3L of NC at baseline, SHELDON, CAD sp cABG, systolic CHF (s/p ICD); s/p coronary stent, afib, diabetic neuropathy, htn, hyperlipidemia, obesity, anxiety/panic attacks (exacerbated since ICD shock 2 years ago), sedentary lifestyle, now presents with 1 week of increasing SOB. The patient has noted that he has felt slightly more dyspneic when ambulating, also endorses occasional increased nonproductive cough as well as mild orthopnea. Pt notes he always feels dyspneic when ambulating, but feels slightyl more so the past week. The patient endorses symptoms slightly increased lower extremity edema. He denies any chest pain, hemoptysis, calf pain , abdominal pain, back pain, nausea, vomiting, fever, chills. 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 Patient denies any diarrhea, melena, BPR, dysura. Card: Dr. Valle - History Source History Provided By: Patient, Family Member, Medical Record Limitations to Obtaining History: No Limitations - Past Medical History Cardio/Vascular: Yes: AFIB, CAD, CHF, HTN, Hyperlipdemia Pulmonary: Yes: COPD, Sleep Apnea Renal/: Yes: Renal Inusuff (recent; ?prerenal azotemia) Psych: Yes: Anxiety, Panic Endocrine: Yes: Diabetes Mellitus - Past Surgical History Past Surgical History: Yes: CABG, Stent (coronary) - Alcohol/Substance Use Hx Alcohol Use: No - Smoking History Smoking history: Former smoker Have you smoked in the past 12 months: No Aproximately how many cigarettes per day: 0 If you are a former smoker, when did you quit?: 2008 - Social History Usual Living Arrangement: With Spouse Place of : [facility] History of Recent Travel: No Home Medications - Allergies Allergies/Adverse Reactions: Allergies Allergy/AdvReac Type Severity Reaction Status Date / Time No Known Drug Allergies Allergy Verified 01/11/18 07:17 - Home Medications Home Medications: Ambulatory Orders Aspirin 81 mg PO DAILY 01/11/18 Atorvastatin Ca [Lipitor] 20 mg PO HS 01/11/18 Carvedilol 3.125 mg PO DAILY 01/11/18 Carvedilol [Coreg -] 3.125 mg PO BID 01/11/18 Furosemide [Lasix] 20 mg PO BID 01/11/18 Gabapentin 400 mg PO BID 01/11/18 Iron,Carb/Vit C/Vit B12/Folic [Iron 100 Plus Tablet] 1 each PO DAILY 01/11/18 Levothyroxine [Synthroid -] 25 mcg PO DAILY 01/11/18 Lisinopril [Zestril] 2.5 mg PO BID 01/11/18 Magnesium Gluconate 500 gm PO BID 01/11/18 Metformin HCl [Metformin HCl ER] 1,000 mg PO BID 01/11/18 Pantoprazole Sodium 40 mg PO DAILY 01/11/18 Potassium Chloride 20 meq PO BID 01/11/18 Prednisone [Deltasone] 20 mg PO DAILY 01/11/18 Spironolactone 25 mg PO DAILY 01/11/18 Review of Systems - Review of Systems Constitutional: reports: Weakness Eyes: reports: No Symptoms HENT: reports: No Symptoms - Risk Factors Known Risk Factors: Yes: Age, Gender, Hypercholesterolemia, Hypertension, Physical Inactivity, Smoking (former), Other (CAD-->CABG; systolic CHF) Vital Signs: Vital Signs Temperature 98.5 F 01/11/18 07:17 Pulse Rate 73 01/11/18 07:17 Respiratory Rate 24 01/11/18 07:17 Blood Pressure 121/55 01/11/18 07:17 O2 Sat by Pulse Oximetry (%) 92 L 01/11/18 07:17 Constitutional: Yes: Anxious, Obese Eyes: Yes: WNL HENT: Yes: WNL Neck: Yes: WNL Respiratory: Yes: Regular Gastrointestinal: Yes: Soft, Abdomen, Obese Renal/: No: Anuria Heart Sounds: Yes: S1, Split S2 Murmur: Yes: Systolic Murmur, Grade 2 Musculoskeletal: Yes: Back Pain, Joint Stiffness, Muscle Weakness Extremities: Yes: Cool Edema: Yes Edema: RLE: 1+ Peripheral Pulses WNL: No Peripheral Pulses: 1+ Left Doralis Pedis, 1+ Right Dorsalis Pedis Integumentary: Yes: Laceration (small right LE scabs (pt was "picking at sores") ) Neurological: Yes: WNL - Other Data Labs, Other Data: CBC, BMP 01/11/18 08:11 01/11/18 08:11 Troponin, BNP 01/11/18 08:11 Troponin I 0.02 B-Natriuretic Peptide 1597.57 H Troponin, BNP 01/11/18 08:11 Troponin I 0.02 B-Natriuretic Peptide 1597.57 H Problem List - Problems (1) Obesity Assessment/Plan: Pt weighed 200 lbs at 27 yrs old, and has a goal of decreasing again to that weight. He has weighed as much as 265 lbs; he presently weighs 248 lbs, and he and his say he has been dieting (moderate breakfast, no lunch, moderate sized dinner). He does very little exercise (afraid to do so since receiving an ICD shock 2 years ago). He would benefit from a dabetic nutrition consult. Attends heart failure group at [facility]. Increase fruits (within diabetic guidelines) and vegetables (pt also c/o chronic constipation). Code(s): E66.9 - OBESITY, UNSPECIFIED (2) Shortness of breath Code(s): R06.02 - SHORTNESS OF BREATH (3) Acute exacerbation of chronic obstructive pulmonary disease (COPD) Assessment/Plan: Pt had been attending pulmonary clinic here. Code(s): J44.1 - CHRONIC OBSTRUCTIVE PULMONARY DISEASE W (ACUTE) EXACERBATION (4) Acute on chronic systolic CHF (congestive heart failure) Assessment/Plan: No JVD BNP 1697 (was double that at end of 2017). CXR: no acute process Continue furosemide and spironolactone. On carvedilol and lisinopril. Pt will benefit from cardiac rehabiliation. Code(s): I50.23 - ACUTE ON CHRONIC SYSTOLIC (CONGESTIVE) HEART FAILURE (5) Anemia Code(s): D64.9 - ANEMIA, UNSPECIFIED (6) CAD (coronary artery disease) Code(s): I25.10 - ATHSCL HEART DISEASE OF [place] CORONARY ARTERY W/O ANG PCTRS (7) Diabetes Assessment/Plan: Elevated HGBA1c a few months ago; needs tighter glucose control Diet, exercise are kim. Consider SGLP%-2 inhibitor (e.g. Jardience) for potential derease in cardiac risk. Code(s): E11.9 - TYPE 2 DIABETES MELLITUS WITHOUT COMPLICATIONS Qualifiers: Diabetes mellitus type: type 2 (8) Hx of CABG Code(s): Z95.1 - PRESENCE OF AORTOCORONARY BYPASS GRAFT (9) Renal insufficiency Code(s): N28.9 - DISORDER OF KIDNEY AND URETER, UNSPECIFIED (10) Atrial fibrillation Assessment/Plan: On carvediolol for HR control. On apixaban for anticoagulation. Code(s): I48.91 - UNSPECIFIED ATRIAL FIBRILLATION (11) HTN (hypertension) Code(s): I10 - ESSENTIAL (PRIMARY) HYPERTENSION Qualifiers: (12) Hyperlipidemia Assessment/Plan: on atrorvastatin; weight loss and diet change are important. Code(s): E78.5 - HYPERLIPIDEMIA, UNSPECIFIED Qualifiers: (13) Obstructive sleep apnea Assessment/Plan: F/u in pulmonary clinic. Code(s): G47.33 - OBSTRUCTIVE SLEEP APNEA (ADULT) (PEDIATRIC) (14) S/P implantation of automatic cardioverter/defibrillator (AICD) Assessment/Plan: Pt has had anxiety/panic since receiving an ICD shock 2 yrs ago. This has resulted, among other things, in his restricting himself in exercise from fear of "causing" another shock. He agrees to attend cardiac rehabilitation. He agrees to see a psychiatrist. Code(s): Z95.810 - PRESENCE OF AUTOMATIC (IMPLANTABLE) CARDIAC DEFIBRILLATOR
--- NOTE | 2018-01-11 13:19 | EKG ---
Test Reason : Blood Pressure : / mmHG Vent. Rate : 070 BPM Atrial Rate : 125 BPM P-R Int : 000 ms QRS Dur : 168 ms QT Int : 506 ms P-R-T Axes : 000 -79 108 degrees QTc Int : 546 ms Ventricular-paced rhythm ABNORMAL ECG WHEN COMPARED WITH ECG OF 30-AUG-2017 12:13, PREMATURE VENTRICULAR COMPLEXES ARE NO LONGER PRESENT VENT. RATE HAS DECREASED BY 2 BPM Confirmed by HAMLET KIDD MD ([id number]) on 01/11/2018 1:19:04 PM Referred By: Confirmed By:HAMLET KIDD MD
== END 2018-01-11 11:47 | disposition home or self-care (01) ==
LOC: JER 07:15
PROC: 3E0F7GC Introduction of Other Therapeutic Substance into Respiratory Tract, Via Natural or Artificial Opening (ICD-10-PCS; principal; 2018-01-11)
DX: J44.1 Chronic obstructive pulmonary disease with (acute) exacerbation (principal); I25.811 Atherosclerosis of native coronary artery of transplanted heart without angina pectoris; I13.0 Hypertensive heart and chronic kidney disease with heart failure and stage 1 through stage 4 chronic kidney disease, or unspecified chronic kidney disease; N18.9 Chronic kidney disease, unspecified; I50.20 Unspecified systolic (congestive) heart failure; Z95.1 Presence of aortocoronary bypass graft; Z95.5 Presence of coronary angioplasty implant and graft; Z95.810 Presence of automatic (implantable) cardiac defibrillator; E11.9 Type 2 diabetes mellitus without complications; Z79.84 Long term (current) use of oral hypoglycemic drugs; I48.91 Unspecified atrial fibrillation; Z79.01 Long term (current) use of anticoagulants; E66.9 Obesity, unspecified; Z68.38 Body mass index [BMI] 38.0-38.9, adult; G47.33 Obstructive sleep apnea (adult) (pediatric); Z99.81 Dependence on supplemental oxygen
CPT/HCPCS: 36415; 71046-TC-FY; 80053; 82550; 82803; 83880; 84484; 85025; 93005; 93010; 94640; 99284-25; J7620

== ENCOUNTER 2018-02-07 16:35 | Inpatient (IN) | payer OTHER ==
[2018-02-07 16:40] VITALS: BMI 38.2
--- NOTE | 2018-02-07 16:53 | PDOC ---
*Physical Exam - Vital Signs Last Vital Signs Temp Pulse Resp BP Pulse Ox 97.6 F 74 18 97/61 89 L 02/07/18 16:37 02/07/18 16:37 02/07/18 16:37 02/07/18 16:37 02/07/18 16:37 Medical Decision Making - Medical Decision Making 02/07/18 16:52 Vital Signs Temp Pulse Resp BP Pulse Ox 97.6 F 74 18 97/61 89 L 02/07/18 16:37 02/07/18 16:37 02/07/18 16:37 02/07/18 16:37 02/07/18 16:37 Case discussed with MILA Alves. Plan as per MILA.
--- NOTE | 2018-02-07 16:55 | PDOC ---
History of Present Illness - General Chief Complaint: Shortness of Breath Stated Complaint: SOB Time Seen by Provider: 02/07/18 16:42 History Source: Patient, Spouse - History of Present Illness Timing/Duration: reports: week Severity: reports: severe Associated Symptoms: reports: shortness of breath, other (tight chest). denies : cough, fever/chills, lightheadedness, wheezing Past History - Past Medical History Allergies/Adverse Reactions: Allergies Allergy/AdvReac Type Severity Reaction Status Date / Time No Known Drug Allergies Allergy Verified 02/07/18 16:40 Home Medications: Ambulatory Orders Acetazolamide 25,000 gm MC BID 02/07/18 Apixaban [Eliquis] 5 mg PO BID 02/07/18 Aspirin [Елена Chewable] 81 mg PO DAILY 02/07/18 Atorvastatin Ca [Lipitor] 20 mg PO BID 02/07/18 Carvedilol 3.125 mg PO BID 02/07/18 Furosemide [Lasix] 80 mg PO BID 02/07/18 Gabapentin 400 mg PO BID 02/07/18 Levothyroxine [Synthroid -] 25 mcg PO DAILY 02/07/18 Lisinopril [Zestril] 2.5 mg PO BID 02/07/18 Metformin HCl [Glucophage] 1,000 mg PO BID 02/07/18 Potassium Chloride 20 meq PO BID 02/07/18 Prednisone [Deltasone] 20 mg PO DAILY 02/07/18 Spironolactone 25 mg PO DAILY 02/07/18 Tamsulosin HCl 0.4 mg PO DAILY 02/07/18 Anemia: Yes Cardiac Disorders: Yes (cardiac stent, PACEMAKER-DEFIB, cardiomyopathy, CABG 4) COPD: Yes (3 L o2) CHF: Yes Diabetes: Yes HTN: No (LOW BP) Hypercholesterolemia: Yes - Surgical History Cardiac Surgery: Yes (cardiac stent x1, CAGB 4, PACEMAKER/DEFIB) Orthopedic Surgery: No - Immunization History Immunization Up to Date: Yes - Suicide/Smoking/Psychosocial Hx Smoking Status: No Smoking History: Former smoker Years of Tobacco Use: 20 Have you smoked in the past 12 months: No Number of Cigarettes Smoked Daily: 0 If you are a former smoker, when did you quit?: 2008 Information on smoking cessation initiated: No 'Breaking Loose' booklet given: 05/30/12 Hx Alcohol Use: No Drug/Substance Use Hx: No Substance Use Type: None Hx Substance Use Treatment: No Respiratory Specific PMHX - Complaint Specific PMHX Angina: No Pulmonary Embolus: No Review of Systems - Review of Systems Constitutional: No: Chills, Fever Respiratory: Yes: Shortness of Breath. No: Cough, Wheezing Cardiac (ROS): Yes: Chest Tightness. No: Lightheadedness, Palpitations, Syncope ABD/GI: No: Nausea, Vomiting *Physical Exam - Vital Signs Last Vital Signs Temp Pulse Resp BP Pulse Ox 97.6 F 74 18 97/61 89 L 02/07/18 16:37 02/07/18 16:37 02/07/18 16:37 02/07/18 16:37 02/07/18 16:37 - Physical Exam Comments: 02/07/18 17:23 62-year-old male currently sitting on stretcher with own portable oxygen system but appears visibly sob General Appearance: Yes: Appropriately Dressed, Mild Distress HEENT: positive: Normal Voice Neck: positive: Supple Respiratory/Chest: positive: Lungs Clear, Normal Breath Sounds. negative: Wheezing Cardiovascular: positive: Regular Rate, S1, S2 Gastrointestinal/Abdominal: positive: Soft. negative: Tender Extremity: negative: Pedal Edema Integumentary: positive: Dry, Warm Neurologic: positive: Fully Oriented, Alert, Normal Mood/Affect Heart Score/ECG Review - ECG Intrepretation Comment:: 02/07/18 18:14 EKG w/ paced rhythm ED Treatment Course - LABORATORY CBC & Chemistry Diagram: 02/07/18 17:01 02/07/18 17:01 - RADIOLOGY Radiology Studies Ordered: Category Date Time Status CHEST X-RAY PORTABLE* [RAD] Stat Radiology 02/07/18 16:47 Ordered Medical Decision Making - Medical Decision Making 02/07/18 16:55 62-year-old male, history of obesity, SHELDON, HLD, HTN, DM, CKD, CAD s/p CABG, afib on eliquis, AICD, COPD on 3 L of nasal cannula at baseline, CHF w/ EF of 30 %, on lasix and spironolactone, here with worsening of his baseline SOB 1 week. Also complaining of chest tightness intermittently. Chest tightness not worse with exertion. No diaphoresis, nausea, vomiting, wheezing, cough, fever or chills. Seen by Dr. Link of pulmonary last week and now on prednisone taper. Also recently had his lasix increased for bilateral pedal edema which has since improved per patient See exam COPD vs CHF flare, r/o ACS, less likely PE or dissection Hypoxic to 89%on 3L at triage and hypotensive -placed on 4L oxygen bedside -duoneb -solumedrol -lasix -ekg -cxr -labs including VBG -admit 02/07/18 18:53 EKG shows paced rhythm. Troponin normal limits. BNP around baseline. CXR unchanged w/ cardiomegaly w/ no e/o sig pleural effusion. Patient does appear to have HARMAN at 2.3, baseline around 1. K within normal limits. Currently sating 97% on 3 L oxygen. Remains hypotensive but based on chart review, has had similar blood pressure readings in the past. Pt denies weakness or dizziness at this time. As per discussion with Dr. Cox, will give DuoNeb, Solu- Medrol and a dose of azithromycin. Will hold off on lasix at this time. Patient signed out to night GURJIT at this time pending admission 02/07/18 19:20 *DC/Admit/Observation/Transfer Diagnosis at time of Disposition: SOB (shortness of breath) - Discharge Dispostion Condition at time of disposition: Fair - Referrals - Patient Instructions - Post Discharge Activity
[2018-02-07 17:08] LABS: WHITE BLOOD COUNT 5.1 K/mm3 (4.0-10.0)
[2018-02-07 17:14] LABS: HEMATOCRIT 30.7 % (35.4-49); HEMOGLOBIN 9.8 GM/dL (11.7-16.9); MCH 29.8 pg (25.7-33.7); MCHC 31.8 g/dl (32.0-35.9); MEAN CELL VOLUME 93.8 fl (80-96); MEAN PLT VOLUME 9.6 fl (7.5-11.1); PLATELET COUNT 156 K/MM3 (134-434); RBC 3.27 M/mm3 (4.00-5.60); RDW 25.8 % (11.9-15.9)
[2018-02-07 17:37] LABS: ALBUMIN 3.8 g/dl (3.4-5.0); ALK PHOS 119 U/L (45-117); ANION GAP 8 MMOL/L (8-16); BLOOD UREA NITROGEN 50 mg/dL (7-18); CALCIUM 8.7 mg/dL (8.5-10.1); CHLORIDE 100 mmol/L (98-107); CO2 31 mmol/L (21-32); CREATININE 2.3 mg/dL (0.55-1.3); GLUCOSE,RANDOM 151 mg/dL (74-106); POTASSIUM 4.3 mmol/L (3.5-5.1); SGOT/AST 17 U/L (15-37); SGPT/ALT 23 U/L (13-61); SODIUM 138 mmol/L (136-145)
[2018-02-07 17:53] LABS: VENOUS PC02 46.6 mmHg (38-52); VENOUS PH 7.42 (7.32-7.42); VENOUS PO2 30.6 mmHg (28-48)
[2018-02-07 18:01] LABS: ANISOCYTOSIS 2+; PLATELET ESTIMATE ADEQUATE
[2018-02-07] MEDS ORDERED: FUROSEMIDE 40 MG/4 ML INJECTABLE VIAL IVPUSH ONE (18:12)
[2018-02-07] MEDS ORDERED: ALBUTEROL SO4 2.5/IPRATROPIUM 0.5 INH SOL 3 ML VIAL.NEB. NEB ONE ×2 (18:12→18:45)
[2018-02-07] MEDS ORDERED: methylPREDNISolone NA SUCC 40 MG/1 ML VIAL IVPUSH ONE (18:13)
[2018-02-07] MEDS ORDERED: methylPREDNISolone NA SUCC 40 MG/1 ML VIAL ONE ×2 (18:45→18:52)
[2018-02-07] MEDS ORDERED: FUROSEMIDE 40 MG/4 ML INJECTABLE VIAL ONE (18:45)
[2018-02-07] MEDS ORDERED: AZITHROMYCIN IVPB 500 MG in DEXTROSE 5%-WATER - 250 ML IVPB ONE (18:50)
[2018-02-07] MEDS ORDERED: AZITHROMYCIN IVPB 250 ML IVPB ONE (19:13)
--- NOTE | 2018-02-07 19:36 | PDOC ---
*Physical Exam - Vital Signs Last Vital Signs Temp Pulse Resp BP Pulse Ox 97.6 F 74 18 97/61 89 L 02/07/18 16:37 02/07/18 16:37 02/07/18 16:37 02/07/18 16:37 02/07/18 16:37 ED Treatment Course - LABORATORY CBC & Chemistry Diagram: 02/07/18 17:01 02/07/18 17:01 - ADDITIONAL ORDERS Additional order review: Laboratory Results 02/07/18 02/07/18 02/07/18 17:40 17:01 17:01 VBG pH 7.42 POC VBG pCO2 46.6 POC VBG pO2 30.6 D Mixed VBG HCO3 29.6 H Sodium 138 Potassium 4.3 Chloride 100 Carbon Dioxide 31 Anion Gap 8 BUN 50 H Creatinine 2.3 H Creat Clearance w eGFR 29.15 Random Glucose 151 H Calcium 8.7 Total Bilirubin 1.0 AST 17 ALT 23 Alkaline Phosphatase 119 H Creatine Kinase 30 Troponin I < 0.02 B-Natriuretic Peptide 1617.4 H Total Protein 8.0 Albumin 3.8 02/07/18 17:01 RBC 3.27 L MCV 93.8 MCHC 31.8 L RDW 25.8 H MPV 9.6 Neutrophils % No Result Required. Lymphocytes % No Result Required. - Medications Given in the ED: ED Medications Discontinued Medications Generic Name Dose Route Start Last Admin Trade Name Ranulfoq PRN Reason Stop Dose Admin Albuterol/Ipratropium 1 amp 02/07/18 18:12 02/07/18 18:55 Duoneb - NEB 02/07/18 18:13 1 amp ONCE ONE Administration Furosemide 40 mg 02/07/18 18:12 02/07/18 18:55 Lasix Injection - IVPUSH 02/07/18 18:13 40 mg ONCE ONE Administration Methylprednisolone Sodium Succinate 40 mg 02/07/18 18:13 02/07/18 18:55 Solu-Medrol - IVPUSH 02/07/18 18:14 40 mg ONCE ONE Administration Medical Decision Making - Medical Decision Making 02/07/18 19:34 Endorsed to me to endorsed to hospitalist team for admission. 02/07/18 19:53 case endorsed to Hospitalist DIRECTOR CALL Jeny blood culture and Flu swab ordered Labs reviewed troponin negative. Will give aspirin 325 mg by mouth. patient aware of the admission 02/07/18 22:26 sbp 80' given NS 250ml bolous. *DC/Admit/Observation/Transfer Diagnosis at time of Disposition: SOB (shortness of breath), COPD exacerbation CHF exacerbation Qualifiers: Heart failure type: unspecified Qualified Code(s): I50.9 - Heart failure, unspecified - Discharge Dispostion Condition at time of disposition: Fair Decision to Admit order: Yes - Referrals - Patient Instructions - Post Discharge Activity
[2018-02-07] MEDS ORDERED: ALBUTEROL SO4 2.5/IPRATROPIUM 0.5 INH SOL 3 ML VIAL.NEB. NEB PRN (19:59)
[2018-02-07] MEDS ORDERED: ASPIRIN 325 MG ENTERIC COATED TABLET (FP) PO ONE (20:00)
--- NOTE | 2018-02-07 20:29 | HP ---
Admitting History and Physical - Primary Care Physician PCP: Yamila Saravia - Admission Chief Complaint: Increased SOB History of Present Illness: This is a 62 y/o man with significant past medical history of COPD( on 3L), CHF with severe Systolic Dysfunction s/p ICD and Pacemaker placement, CAD s/p stenting, CABG, DM, HTN, HLD, Afib (on Eliquis), GI Bleed, Renal Insufficiency, Former Smoker, SHELDON ( on CPAP at home). Who presents to the ED with increased SOB , MORRIS, nonproductive cough and chest tightness x3-4 day. Patient reports seeing his Pulmonolgist 3 days ago and was told he would need to be admitted. Patient reports having LE swelling. Patient reports having watery diarrhea x 1 week. He reports he has had no episodes while in the ED. Patient denies fever, chills, AP , N/V, constipation, dysuria History Source: Patient, Medical Record Limitations to Obtaining History: No Limitations - Past Medical History Cardiovascular: Yes: AFIB, CAD, CHF, HTN, Hyperlipdemia, Murmur Pulmonary: Yes: COPD, O2 Dependent, Sleep Apnea (on CPAP) Gastrointestinal: Yes: GI Bleed Renal/: Yes: Renal Inusuff (recent; ?prerenal azotemia) Heme/Onc: Yes: Anemia Psych: Yes: Anxiety, Panic Endocrine: Yes: Diabetes Mellitus - Past Surgical History Past Surgical History: Yes: AICD, CABG, Permanent Pacemaker, Stent (coronary) - Smoking History Smoking history: Former smoker Have you smoked in the past 12 months: No Aproximately how many cigarettes per day: 0 If you are a former smoker, when did you quit?: 2008 - Alcohol/Substance Use Hx Alcohol Use: No History of Substance Use: reports: None - Social History Usual Living Arrangement: Yes: With Spouse ADL: Independent History of Recent Travel: No Home Medications - Allergies Allergies/Adverse Reactions: Allergies Allergy/AdvReac Type Severity Reaction Status Date / Time No Known Drug Allergies Allergy Verified 02/07/18 16:40 - Home Medications Home Medications: Ambulatory Orders Acetazolamide 25,000 gm MC BID 02/07/18 Apixaban [Eliquis] 5 mg PO BID 02/07/18 Aspirin [Елена Chewable] 81 mg PO DAILY 02/07/18 Atorvastatin Ca [Lipitor] 20 mg PO BID 02/07/18 Carvedilol 3.125 mg PO BID 02/07/18 Furosemide [Lasix] 80 mg PO BID 02/07/18 Gabapentin 400 mg PO BID 02/07/18 Levothyroxine [Synthroid -] 25 mcg PO DAILY 02/07/18 Lisinopril [Zestril] 2.5 mg PO BID 02/07/18 Metformin HCl [Glucophage] 1,000 mg PO BID 02/07/18 Potassium Chloride 20 meq PO BID 02/07/18 Prednisone [Deltasone] 20 mg PO DAILY 02/07/18 Spironolactone 25 mg PO DAILY 02/07/18 Tamsulosin HCl 0.4 mg PO DAILY 02/07/18 Review of Systems - Review of Systems Constitutional: reports: Weakness Eyes: reports: No Symptoms HENT: reports: No Symptoms Neck: reports: No Symptoms Cardiovascular: reports: Shortness of Breath, Other (Chest Tightness) Respiratory: reports: Cough, SOB, SOB on Exertion Gastrointestinal: reports: Diarrhea Genitourinary: reports: No Symptoms Breasts: reports: No Symptoms Reported Musculoskeletal: reports: No Symptoms Integumentary: reports: No Symptoms Neurological: reports: No Symptoms Endocrine: reports: No Symptoms Hematology/Lymphatic: reports: No Symptoms Psychiatric: reports: No Symptoms Physical Examination Vital Signs: Vital Signs Temperature 97.6 F 02/07/18 16:37 Pulse Rate 74 02/07/18 16:37 Respiratory Rate 18 02/07/18 16:37 Blood Pressure 97/61 02/07/18 16:37 O2 Sat by Pulse Oximetry (%) 89 L 02/07/18 16:37 Constitutional: Yes: No Distress, Calm, Obese Eyes: Yes: WNL, Conjunctiva Clear, EOM Intact, PERRL HENT: Yes: WNL, Atraumatic, Normocephalic Neck: Yes: WNL, Supple, Trachea Midline Cardiovascular: Yes: WNL, Regular Rate and Rhythm, S1, S2 Respiratory: Yes: Diminished, On Nasal O2, Rales, SOB, SOB on Exertion Gastrointestinal: Yes: WNL, Normal Bowel Sounds, Soft, Abdomen, Obese Renal/: Yes: WNL Breast(s): Yes: WNL Musculoskeletal: Yes: WNL Extremities: Yes: WNL Edema: Yes Edema: LLE: 2+, RLE: 2+ Peripheral Pulses WNL: Yes Peripheral Pulses: Left Doralis Pedis: 2+, Right Dorsalis Pedis: 2+ Neurological: Yes: WNL, Alert, Oriented, Cran Nerves II-XII Intact ...Motor Strength: WNL Psychiatric: Yes: WNL, Alert, Oriented Labs: CBC, BMP 02/07/18 17:01 02/07/18 17:01 Laboratory Results - last 24 hr 02/07/18 02/07/18 02/07/18 17:01 17:01 17:01 WBC 5.1 RBC 3.27 L Hgb 9.8 L Hct 30.7 L MCV 93.8 MCH 29.8 MCHC 31.8 L RDW 25.8 H Plt Count 156 MPV 9.6 Absolute Neuts (auto) 3.6 Total Counted 100 Neutrophils % No Result Required. Neutrophils % (Manual) 86.0 H Band Neutrophils % 1.0 Lymphocytes % No Result Required. Lymphocytes % (Manual) 10.0 D Monocytes % (Manual) 3 L Nucleated RBC % 1 H Platelet Estimate Adequate Platelet Comment Rare giant plts Polychromasia 1+ Basophilic Stippling Few Anisocytosis 2+ VBG pH POC VBG pCO2 POC VBG pO2 Mixed VBG HCO3 Sodium 138 Potassium 4.3 Chloride 100 Carbon Dioxide 31 Anion Gap 8 BUN 50 H Creatinine 2.3 H Creat Clearance w eGFR 29.15 Random Glucose 151 H Calcium 8.7 Total Bilirubin 1.0 AST 17 ALT 23 Alkaline Phosphatase 119 H Creatine Kinase 30 Troponin I < 0.02 B-Natriuretic Peptide 1617.4 H Total Protein 8.0 Albumin 3.8 Urine Color Urine Appearance Urine pH Ur Specific [place] Urine Protein Urine Glucose (UA) Urine Ketones Urine Blood Urine Nitrite Urine Bilirubin Urine Urobilinogen Ur Leukocyte Esterase 02/07/18 02/07/18 17:40 21:26 WBC RBC Hgb Hct MCV MCH MCHC RDW Plt Count MPV Absolute Neuts (auto) Total Counted Neutrophils % Neutrophils % (Manual) Band Neutrophils % Lymphocytes % Lymphocytes % (Manual) Monocytes % (Manual) Nucleated RBC % Platelet Estimate Platelet Comment Polychromasia Basophilic Stippling Anisocytosis VBG pH 7.42 POC VBG pCO2 46.6 POC VBG pO2 30.6 D Mixed VBG HCO3 29.6 H Sodium Potassium Chloride Carbon Dioxide Anion Gap BUN Creatinine Creat Clearance w eGFR Random Glucose Calcium Total Bilirubin AST ALT Alkaline Phosphatase Creatine Kinase Troponin I B-Natriuretic Peptide Total Protein Albumin Urine Color Ltyellow Urine Appearance Clear Urine pH 6.0 Ur Specific [place] 1.009 Urine Protein Negative Urine Glucose (UA) Negative Urine Ketones Negative Urine Blood Negative Urine Nitrite Negative Urine Bilirubin Negative Urine Urobilinogen Negative Ur Leukocyte Esterase Negative Intake & Output 02/05/18 02/06/18 02/07/18 02/08/18 23:59 23:59 23:59 23:59 Weight 110.677 kg C Imaging - Results Chest X-ray: Image Reviewed EKG: Image Reviewed (ventricular paced rhythm QT/QTc 496/535) Problem List - Problems (1) Acute exacerbation of chronic obstructive pulmonary disease (COPD) Code(s): J44.1 - CHRONIC OBSTRUCTIVE PULMONARY DISEASE W (ACUTE) EXACERBATION (2) Shortness of breath Code(s): R06.02 - SHORTNESS OF BREATH (3) Acute on chronic systolic CHF (congestive heart failure) Code(s): I50.23 - ACUTE ON CHRONIC SYSTOLIC (CONGESTIVE) HEART FAILURE (4) HARMAN (acute kidney injury) Code(s): N17.9 - ACUTE KIDNEY FAILURE, UNSPECIFIED (5) CAD (coronary artery disease) Code(s): I25.10 - ATHSCL HEART DISEASE OF [place] CORONARY ARTERY W/O ANG PCTRS (6) Diabetes Code(s): E11.9 - TYPE 2 DIABETES MELLITUS WITHOUT COMPLICATIONS Qualifiers: Diabetes mellitus type: type 2 (7) Anemia Code(s): D64.9 - ANEMIA, UNSPECIFIED (8) Atrial fibrillation Code(s): I48.91 - UNSPECIFIED ATRIAL FIBRILLATION (9) GI bleed Code(s): K92.2 - GASTROINTESTINAL HEMORRHAGE, UNSPECIFIED (10) Hyperlipidemia Code(s): E78.5 - HYPERLIPIDEMIA, UNSPECIFIED Qualifiers: (11) Hypothyroid Code(s): E03.9 - HYPOTHYROIDISM, UNSPECIFIED Qualifiers: (12) Morbid obesity Code(s): E66.01 - MORBID (SEVERE) OBESITY DUE TO EXCESS CALORIES (13) Obstructive sleep apnea Code(s): G47.33 - OBSTRUCTIVE SLEEP APNEA (ADULT) (PEDIATRIC) (14) S/P implantation of automatic cardioverter/defibrillator (AICD) Code(s): Z95.810 - PRESENCE OF AUTOMATIC (IMPLANTABLE) CARDIAC DEFIBRILLATOR Assessment/Plan This is a 62 y/o man with a PMHx of: COPD (on 3L), CHF with severe Systolic Dysfunction s/p ICD and Pacemaker placement, CAD s/p stenting, CABG, Afib (on Eliquis), DM, HLD, HTN, Renal Insufficiency, Former Smoker, SHELDON (CPAP at home). Admitted to Telemetry for Acute on Chronic CHF with severe Systolic Dysfunction , Acute Exacerbation of COPD for further evaluation of their emergent condition. Plan: Cardiovascular: Acute on Chronic CHF with severe Systolic Dysfunction CAD Atrial Fibrillation Hypertension Hyperlipidemia - Continue Cardiac monitoring - Serial Enzymes - Chest xray image - Vascular Congestion, ?patchy infiltrate RML, awaiting official report - BNP 1617, slight increase from last 2 visits - Appreciate Cardiology consult - Lasix given in ED - Will hold Lasix secondary to hypotension - Strict INOs - Daily weights - Repeat CBC, BMP in am - Echo in am - [id number] 3 - Wells Score 2 - Duplex of LE- r/o DVT - Continue Eliquis 2.5mg BID (dose decreased 2/2, Cr 2.3), Asa, Lipitor - Will hold Lisinopril, Spironolactone secondary to HARMAN - Will hold carvedilol secondary to hypotension - Pt reports taking all his evening meds before coming to the ED - Day team will need to verify home meds with pt's tomorrow, pt unable to verify home meds, his was unable to verify meds last night she had gone to bed, per pt. Pulmonary: Acute Exacerbation of COPD SHELDON - Chest Xray image ?infiltrate RML, vascular congestion - Given Azithromycin, Solumedrol and Duonebs x2 in the ED - Blood Cultures- pending - Influenza Swab-pending - Appreciate Pulmonology consult - Continue Duonebs - Continue Solumederol w/taper - Will empirically treat with Azithromycin - O2 - CPAP HS Nephrology: HARMAN - Cr 2.3 worse from last admission 1.5 - Appreciate Nephrology consult - Avoid Nephrotoxic drugs - Monitor BMP - Will hold IVF secondary to CHF, defer to nephrology Endocrinology: Diabetes Mellitus - Stable - BGMs - ISS - Will hold Metformin secondary to HARMAN : BPH -Continue Tamsulosin FEN - Fluid Restriction - Replete lytes prn - Low Na, Diabetic Diet DVT ppx - OOB - SCDs - Continue Eliquis Dispo: Requires Inpatient Care Visit type - Emergency Visit Emergency Visit: Yes ED Registration Date: 02/07/18 Care time: The patient presented to the Emergency Department on the above date and was hospitalized for further evaluation of their emergent condition. - New Patient This patient is new to me today: Yes Date on this admission: 02/07/18 - Critical Care Critical Care patient: No Hospitalist Screening - Colonoscopy Questionnaire Colonoscopy Questionnaire: Colonoscopy Questionnaire - Patient: 50 - 75 years old and never had a screening colonoscopy: Unknown History of colon or rectal polyps, or CA: Unknown History of IBD, Crohn's disease or UC: Unknown History of abdominal radiation therapy as a child: Unknown - Relative: 1 with colon or rectal CA, or polyps at age 60 or younger: Unknown Colon or rectal CA diagnosed at age 45 or younger: Unknown Multiple relatives with colon or rectal CA: Unknown - Outcome: Screening Result: Negative Screen
[2018-02-07] MEDS ORDERED: SODIUM CHLORIDE 0.9% 500 ML INFUS.BAG IV ONE (21:48)
[2018-02-07 22:08] LABS: URINE APPEARANCE CLEAR; URINE BILIRUBIN NEGATIVE (<2.0 mg/dL); URINE COLOR LTYELLOW; URINE GLUCOSE (UA) NEGATIVE (NEGATIVE); URINE KETONE NEGATIVE (NEGATIVE); URINE LEUK ESTERASE NEGATIVE (NEGATIVE); URINE NITRITE NEGATIVE (NEGATIVE); URINE PROTEIN NEGATIVE (NEGATIVE); URINE UROBILINOGEN NEGATIVE mg/dL (0.2-1.0)
[2018-02-08] MEDS: methylPREDNISolone NA SUCC 40 MG/1 ML VIAL IVPUSH SCH ×3 (03:54→17:10)
[2018-02-08 07:47] LABS: BASO % 0.3 % (0-2.0); HEMATOCRIT 31.1 % (35.4-49); HEMOGLOBIN 9.6 GM/dL (11.7-16.9); LYMPH % 7.4 % (8-40); MCH 29.5 pg (25.7-33.7); MEAN PLT VOLUME 9.8 fl (7.5-11.1); MONO % 1.5 % (3.8-10.2); NEUT % 90.8 % (42.8-82.8); PLATELET COUNT 135 K/MM3 (134-434); RBC 3.27 M/mm3 (4.00-5.60); RDW 25.5 % (11.9-15.9); WHITE BLOOD COUNT 3.9 K/mm3 (4.0-10.0)
[2018-02-08] MEDS ORDERED: LEVOTHYROXINE NA 25 MCG TABLET (FP) ONE (08:35)
[2018-02-08] MEDS: INSULIN SLIDING SCALE (NOVOLOG) 1 VIAL SQ SCH ×4 (08:46→21:48)
[2018-02-08] MEDS ORDERED: INSULIN REGULAR HUMAN 100 UNITS/ML *VIAL ONE (08:49)
[2018-02-08 08:51] LABS: ANION GAP 13 MMOL/L (8-16); BLOOD UREA NITROGEN 59 mg/dL (7-18); CALCIUM 9.4 mg/dL (8.5-10.1); CHLORIDE 96 mmol/L (98-107); CO2 28 mmol/L (21-32); GLUCOSE,RANDOM 261 mg/dL (74-106); MAGNESIUM 2.4 mg/dL (1.8-2.4); PHOSPHOROUS 5.8 mg/dL (2.5-4.9); POTASSIUM 4.5 mmol/L (3.5-5.1); SODIUM 138 mmol/L (136-145)
[2018-02-08] MEDS: LEVOTHYROXINE NA 25 MCG TABLET (FP) PO SCH (08:51)
[2018-02-08 08:53] LABS: ARTERIAL BLD GAS O2 SATURATION 87.1 % (90-98.9); ARTERIAL BLOOD GAS BASE EXCESS 0.5 meq/l (-2-2); ARTERIAL BLOOD GAS PCO2 49.5 mmHg (35-45); ARTERIAL BLOOD GAS PO2 60.3 mmHg (80-100); ARTERIAL BLOOD GAS pH 7.34 (7.35-7.45)
[2018-02-08 08:54] LABS: ALLENS TEST POSITIVE
[2018-02-08] MEDS: AZITHROMYCIN IVPB 500 MG in DEXTROSE 5%-WATER - 250 ML IVPB SCH (10:26)
[2018-02-08] MEDS: APIXABAN 2.5 MG TABLET PO SCH ×2 (10:26→21:43)
[2018-02-08] MEDS: ASPIRIN 81 MG CHEWABLE TABLETS PO SCH (10:26)
--- NOTE | 2018-02-08 10:33 | PN ---
Progress Note, Physician Chief Complaint: This is a 62 y/o man with significant past medical history of COPD( on 3L), CHF with severe Systolic Dysfunction s/p ICD and Pacemaker placement, CAD s/p stenting, CABG, DM, HTN, HLD, Afib (on Eliquis), GI Bleed, Renal Insufficiency, Former Smoker, SHELDON ( on CPAP at home). Who presents to the ED with increased SOB , MORRIS, nonproductive cough and chest tightness x3-4 day. Patient reports seeing his Pulmonolgist 3 days ago and was told he would need to be admitted. Patient reports having LE swelling. Patient reports having watery diarrhea x 1 week. He reports he has had no episodes while in the ED. Patient denies fever, chills, AP , N/V, constipation, dysuria - Current Medication List Current Medications: Active Medications Albuterol/Ipratropium (Duoneb -) 1 amp NEB Q6H PRN PRN Reason: SHORTNESS OF BREATH Apixaban (Eliquis -) 2.5 mg PO BID [facility] Last Admin: 02/08/18 10:26 Dose: 2.5 mg Aspirin (Asa -) 81 mg PO DAILY [facility] Last Admin: 02/08/18 10:26 Dose: 81 mg Azithromycin 500 mg/ Dextrose 250 mls @ 250 mls/hr IVPB DAILY [facility] Stop: 02/11/18 09:59 Last Admin: 02/08/18 10: Dose: 250 mls/hr Insulin Aspart (Novolog Vial Sliding Scale -) 1 vial SQ ACHS [facility]; Protocol Last Admin: 02/08/18 08:46 Dose: 6 units Levothyroxine Sodium (Synthroid -) 25 mcg PO DAILY@0700 [facility] Last Admin: 02/08/18 08:51 Dose: 25 mcg Methylprednisolone Sodium Succinate (Solu-Medrol -) 40 mg IVPUSH Q8H-IV [facility] Last Admin: 02/08/18 10:26 Dose: 40 mg - Objective Vital Signs: Vital Signs Temperature 97.9 F 02/08/18 08:00 Pulse Rate 72 02/08/18 08:00 Respiratory Rate 22 H 02/08/18 08:00 Blood Pressure 97/63 02/08/18 08:00 O2 Sat by Pulse Oximetry (%) 93 L 02/08/18 08:00 patient now in telemetry floor sleeping in bed oygen saturation in low 80's got nebulizer and now in 90's Constitutional: Yes: Calm Cardiovascular: Yes: S1, S2 Respiratory: Yes: Diminished, On Nasal O2, Other (crackles) Gastrointestinal: Yes: Normal Bowel Sounds, Soft Extremities: Yes: Other (prominent veins) Edema: Yes (trace) Neurological: Yes: Other (sleeping but arousable and repsonds to questions) Labs: CBC, BMP 02/08/18 07:18 02/08/18 07:18 Problem List - Problems (1) COPD exacerbation Assessment/Plan: oxygen solumedrol nebulizer keep oxygen >90 pulm consult Code(s): J44.1 - CHRONIC OBSTRUCTIVE PULMONARY DISEASE W (ACUTE) EXACERBATION (2) Acute on chronic systolic CHF (congestive heart failure) Assessment/Plan: got lasix iv in INR elevated bnop echo cardiology eval I/o givern low BP and elevate Cr Azestril on hold coreg and aldactone on hold as well Code(s): I50.23 - ACUTE ON CHRONIC SYSTOLIC (CONGESTIVE) HEART FAILURE (3) Anemia Assessment/Plan: iron panel Code(s): D64.9 - ANEMIA, UNSPECIFIED (4) Diabetes Assessment/Plan: sliding scale [id number] hold metformin given inc creatinine bgm Code(s): E11.9 - TYPE 2 DIABETES MELLITUS WITHOUT COMPLICATIONS Qualifiers: Diabetes mellitus type: type 2 (5) Renal insufficiency Assessment/Plan: renal cosnult Code(s): N28.9 - DISORDER OF KIDNEY AND URETER, UNSPECIFIED (6) Hypothyroid Assessment/Plan: tsh synthroid Code(s): E03.9 - HYPOTHYROIDISM, UNSPECIFIED Qualifiers: (7) CAD (coronary artery disease) Assessment/Plan: s/p CABG aspirin statin BB curently on hold Code(s): I25.10 - ATHSCL HEART DISEASE OF [place] CORONARY ARTERY W/O ANG PCTRS (8) Atrial fibrillation Assessment/Plan: on AC eliquis monitor h/h currently coreg on hold Code(s): I48.91 - UNSPECIFIED ATRIAL FIBRILLATION
--- NOTE | 2018-02-08 11:51 | CON.CARD ---
Consult Consult Specialty:: Cardiology - History of Present Illness Chief Complaint: sob History of Present Illness: This is a 62 y/o man with significant past medical history of COPD( on 3L), CHF with severe Systolic Dysfunction s/p ICD and Pacemaker placement, CAD s/p stenting, CABG, DM, HTN, HLD, Afib (on Eliquis), GI Bleed, Renal Insufficiency, Former Smoker, SHELDON ( on CPAP at home). Who presents to the ED with increased SOB , MORRIS, nonproductive cough and chest tightness x3-4 day. Patient reports seeing his Pulmonolgist 3 days ago and was told he would need to be admitted. Patient reports having LE swelling. Patient reports having watery diarrhea x 1 week. He reports he has had no episodes while in the ED. Patient denies fever, chills, AP , N/V, constipation, dysuria PMH Diabetes Mellitus (DM) HTN hyperlipidemia obesity COPD obstructive sleep apnea syndrome (OSAS) paroxysmal atrial fibrillation (PAF) s/p CABG 06/2014 (denies hx [place]), with moderately severe systolic LV dysfunction noted at [facility] on that admission-->ICD. - History Source History Provided By: Patient, Medical Record Limitations to Obtaining History: No Limitations - Past Medical History Cardio/Vascular: Yes: AFIB, CAD, CHF, HTN, Hyperlipdemia, Murmur Pulmonary: Yes: COPD, O2 Dependent, Sleep Apnea (on CPAP) Gastrointestinal: Yes: GI Bleed Renal/: Yes: Renal Inusuff (recent; ?prerenal azotemia) Psych: Yes: Anxiety, Panic Endocrine: Yes: Diabetes Mellitus - Past Surgical History Past Surgical History: Yes: AICD, CABG, Permanent Pacemaker, Stent (coronary) - Alcohol/Substance Use Hx Alcohol Use: No History of Substance Use: reports: None - Smoking History Smoking history: Former smoker Have you smoked in the past 12 months: No Aproximately how many cigarettes per day: 0 If you are a former smoker, when did you quit?: 2008 - Social History Usual Living Arrangement: With Spouse ADL: Independent History of Recent Travel: No Home Medications - Allergies Allergies/Adverse Reactions: Allergies Allergy/AdvReac Type Severity Reaction Status Date / Time No Known Drug Allergies Allergy Verified 02/07/18 16:40 - Home Medications Home Medications: Ambulatory Orders Acetazolamide 25,000 gm MC BID 02/07/18 Apixaban [Eliquis] 5 mg PO BID 02/07/18 Aspirin [Елена Chewable] 81 mg PO DAILY 02/07/18 Atorvastatin Ca [Lipitor] 20 mg PO BID 02/07/18 Carvedilol 3.125 mg PO BID 02/07/18 Furosemide [Lasix] 80 mg PO BID 02/07/18 Gabapentin 400 mg PO BID 02/07/18 Levothyroxine [Synthroid -] 25 mcg PO DAILY 02/07/18 Lisinopril [Zestril] 2.5 mg PO BID 02/07/18 Metformin HCl [Glucophage] 1,000 mg PO BID 02/07/18 Potassium Chloride 20 meq PO BID 02/07/18 Prednisone [Deltasone] 20 mg PO DAILY 02/07/18 Spironolactone 25 mg PO DAILY 02/07/18 Tamsulosin HCl 0.4 mg PO DAILY 02/07/18 Review of Systems - Review of Systems Constitutional: reports: No Symptoms Eyes: reports: No Symptoms HENT: reports: No Symptoms Neck: reports: No Symptoms Cardiovascular: reports: Shortness of Breath Respiratory: reports: SOB, SOB on Exertion Gastrointestinal: reports: No Symptoms Genitourinary: reports: No Symptoms Breasts: reports: No Symptoms Reported Musculoskeletal: reports: No Symptoms Integumentary: reports: No Symptoms Neurological: reports: No Symptoms Endocrine: reports: No Symptoms Hematology/Lymphatic: reports: No Symptoms Psychiatric: reports: No Symptoms Vital Signs: Vital Signs Temperature 98.3 F 02/08/18 10:48 Pulse Rate 85 02/08/18 10:48 Respiratory Rate 20 02/08/18 10:48 Blood Pressure 90/61 02/08/18 10:48 O2 Sat by Pulse Oximetry (%) 93 L 02/08/18 08:00 Constitutional: Yes: Well Nourished, No Distress, Calm Eyes: Yes: WNL, Conjunctiva Clear, EOM Intact HENT: Yes: WNL, Atraumatic, Normocephalic Neck: Yes: WNL, Supple, Trachea Midline Respiratory: Yes: WNL, Regular, CTA Bilaterally Gastrointestinal: Yes: WNL, Normal Bowel Sounds Renal/: Yes: WNL Cardiovascular: Yes: WNL, Regular Rate and Rhythm Musculoskeletal: Yes: WNL Extremities: Yes: WNL Integumentary: Yes: WNL Neurological: Yes: WNL, Alert, Oriented ...Motor Strength: WNL Psychiatric: Yes: WNL, Alert, Oriented - Other Data Labs, Other Data: CBC, BMP 02/08/18 07:18 02/08/18 07:18 Troponin, BNP 02/07/18 02/07/18 02/08/18 17:01 17:01 07:18 Troponin I < 0.02 < 0.02 B-Natriuretic Peptide 1617.4 H Troponin, BNP 02/07/18 02/07/18 02/08/18 17:01 17:01 07:18 Troponin I < 0.02 < 0.02 B-Natriuretic Peptide 1617.4 H Laboratory Tests 02/07/18 02/07/18 02/07/18 17:01 17:01 17:01 WBC 5.1 RBC 3.27 L Hgb 9.8 L Hct 30.7 L MCV 93.8 MCH 29.8 MCHC 31.8 L RDW 25.8 H Plt Count 156 MPV 9.6 Absolute Neuts (auto) 3.6 Total Counted 100 Neutrophils % No Result Required. Neutrophils % (Manual) 86.0 H Band Neutrophils % 1.0 Lymphocytes % No Result Required. Lymphocytes % (Manual) 10.0 D Monocytes % Monocytes % (Manual) 3 L Eosinophils % Basophils % Nucleated RBC % 1 H Platelet Estimate Adequate Platelet Comment Rare giant plts Polychromasia 1+ Basophilic Stippling Few Anisocytosis 2+ Anticoagulation Therapy Puncture Site ABG pH ABG pCO2 at Pt Temp ABG pO2 at Pt Temp ABG HCO3 ABG O2 Sat (Measured) ABG O2 Content ABG Base Excess [place] Test VBG pH POC VBG pCO2 POC VBG pO2 Mixed VBG HCO3 O2 Delivery Device Oxygen Flow Rate Vent Mode Vent Rate Mechanical Rate Pressure Support Vent Sodium 138 Potassium 4.3 Chloride 100 Carbon Dioxide 31 Anion Gap 8 BUN 50 H Creatinine 2.3 H Creat Clearance w eGFR 29.15 POC Glucometer Random Glucose 151 H Calcium 8.7 Phosphorus Magnesium Total Bilirubin 1.0 AST 17 ALT 23 Alkaline Phosphatase 119 H Creatine Kinase 30 Troponin I < 0.02 B-Natriuretic Peptide 1617.4 H Total Protein 8.0 Albumin 3.8 TSH Urine Color Urine Appearance Urine pH Ur Specific [place] Urine Protein Urine Glucose (UA) Urine Ketones Urine Blood Urine Nitrite Urine Bilirubin Urine Urobilinogen Ur Leukocyte Esterase 02/07/18 02/07/18 02/08/18 17:40 21:26 07:18 WBC 3.9 L RBC 3.27 L Hgb 9.6 L Hct 31.1 L MCV 95.0 MCH 29.5 MCHC 31.0 L RDW 25.5 H Plt Count 135 MPV 9.8 Absolute Neuts (auto) 3.6 Total Counted Neutrophils % 90.8 H Neutrophils % (Manual) Band Neutrophils % Lymphocytes % 7.4 L D Lymphocytes % (Manual) Monocytes % 1.5 L Monocytes % (Manual) Eosinophils % 0.0 Basophils % 0.3 Nucleated RBC % 0 Platelet Estimate Platelet Comment Polychromasia Basophilic Stippling Anisocytosis Anticoagulation Therapy Puncture Site ABG pH ABG pCO2 at Pt Temp ABG pO2 at Pt Temp ABG HCO3 ABG O2 Sat (Measured) ABG O2 Content ABG Base Excess [place] Test VBG pH 7.42 POC VBG pCO2 46.6 POC VBG pO2 30.6 D Mixed VBG HCO3 29.6 H O2 Delivery Device Oxygen Flow Rate Vent Mode Vent Rate Mechanical Rate Pressure Support Vent Sodium Potassium Chloride Carbon Dioxide Anion Gap BUN Creatinine Creat Clearance w eGFR POC Glucometer Random Glucose Calcium Phosphorus Magnesium Total Bilirubin AST ALT Alkaline Phosphatase Creatine Kinase Troponin I B-Natriuretic Peptide Total Protein Albumin TSH Urine Color Ltyellow Urine Appearance Clear Urine pH 6.0 Ur Specific [place] 1.009 Urine Protein Negative Urine Glucose (UA) Negative Urine Ketones Negative Urine Blood Negative Urine Nitrite Negative Urine Bilirubin Negative Urine Urobilinogen Negative Ur Leukocyte Esterase Negative 02/08/18 02/08/18 02/08/18 07:18 07:18 08:00 WBC RBC Hgb Hct MCV MCH MCHC RDW Plt Count MPV Absolute Neuts (auto) Total Counted Neutrophils % Neutrophils % (Manual) Band Neutrophils % Lymphocytes % Lymphocytes % (Manual) Monocytes % Monocytes % (Manual) Eosinophils % Basophils % Nucleated RBC % Platelet Estimate Platelet Comment Polychromasia Basophilic Stippling Anisocytosis Anticoagulation Therapy No Result Required. Puncture Site Right radial ABG pH 7.34 L ABG pCO2 at Pt Temp 49.5 H D ABG pO2 at Pt Temp 60.3 L ABG HCO3 26.1 H ABG O2 Sat (Measured) 87.1 L ABG O2 Content 11.3 L ABG Base Excess 0.5 [place] Test Positive VBG pH POC VBG pCO2 POC VBG pO2 Mixed VBG HCO3 O2 Delivery Device No Result Required. Oxygen Flow Rate No Result Required. Vent Mode No Result Required. Vent Rate No Result Required. Mechanical Rate No Result Required. Pressure Support Vent No Result Required. Sodium 138 Potassium 4.5 Chloride 96 L Carbon Dioxide 28 Anion Gap 13 BUN 59 H Creatinine 2.0 H Creat Clearance w eGFR 34.25 POC Glucometer Random Glucose 261 H Calcium 9.4 Phosphorus 5.8 H Magnesium 2.4 Total Bilirubin AST ALT Alkaline Phosphatase Creatine Kinase 24 L Troponin I < 0.02 B-Natriuretic Peptide Total Protein Albumin TSH 1.03 D Cancelled Urine Color Urine Appearance Urine pH Ur Specific [place] Urine Protein Urine Glucose (UA) Urine Ketones Urine Blood Urine Nitrite Urine Bilirubin Urine Urobilinogen Ur Leukocyte Esterase 02/08/18 08:41 WBC RBC Hgb Hct MCV MCH MCHC RDW Plt Count MPV Absolute Neuts (auto) Total Counted Neutrophils % Neutrophils % (Manual) Band Neutrophils % Lymphocytes % Lymphocytes % (Manual) Monocytes % Monocytes % (Manual) Eosinophils % Basophils % Nucleated RBC % Platelet Estimate Platelet Comment Polychromasia Basophilic Stippling Anisocytosis Anticoagulation Therapy Puncture Site ABG pH ABG pCO2 at Pt Temp ABG pO2 at Pt Temp ABG HCO3 ABG O2 Sat (Measured) ABG O2 Content ABG Base Excess [place] Test VBG pH POC VBG pCO2 POC VBG pO2 Mixed VBG HCO3 O2 Delivery Device Oxygen Flow Rate Vent Mode Vent Rate Mechanical Rate Pressure Support Vent Sodium Potassium Chloride Carbon Dioxide Anion Gap BUN Creatinine Creat Clearance w eGFR POC Glucometer [phone] Random Glucose Calcium Phosphorus Magnesium Total Bilirubin AST ALT Alkaline Phosphatase Creatine Kinase Troponin I B-Natriuretic Peptide Total Protein Albumin TSH Urine Color Urine Appearance Urine pH Ur Specific [place] Urine Protein Urine Glucose (UA) Urine Ketones Urine Blood Urine Nitrite Urine Bilirubin Urine Urobilinogen Ur Leukocyte Esterase Imaging - Results Chest X-ray: Image Reviewed (no i/e) EKG: Pending Problem List - Problems (1) CHF exacerbation Code(s): I50.9 - HEART FAILURE, UNSPECIFIED Qualifiers: Heart failure type: unspecified Qualified Code(s): I50.9 - Heart failure, unspecified (2) COPD exacerbation Code(s): J44.1 - CHRONIC OBSTRUCTIVE PULMONARY DISEASE W (ACUTE) EXACERBATION (3) Shortness of breath Code(s): R06.02 - SHORTNESS OF BREATH (4) HARMAN (acute kidney injury) Code(s): N17.9 - ACUTE KIDNEY FAILURE, UNSPECIFIED (5) Acute exacerbation of chronic obstructive pulmonary disease (COPD) Code(s): J44.1 - CHRONIC OBSTRUCTIVE PULMONARY DISEASE W (ACUTE) EXACERBATION (6) Acute on chronic respiratory failure with hypoxemia Code(s): J96.21 - ACUTE AND CHRONIC RESPIRATORY FAILURE WITH HYPOXIA (7) Acute on chronic systolic CHF (congestive heart failure) Code(s): I50.23 - ACUTE ON CHRONIC SYSTOLIC (CONGESTIVE) HEART FAILURE (8) Txdge-av-tocbzha kidney injury Code(s): N17.9 - ACUTE KIDNEY FAILURE, UNSPECIFIED; N18.9 - CHRONIC KIDNEY DISEASE, UNSPECIFIED (9) Anemia Code(s): D64.9 - ANEMIA, UNSPECIFIED (10) CAD (coronary artery disease) Code(s): I25.10 - ATHSCL HEART DISEASE OF [place] CORONARY ARTERY W/O ANG PCTRS (11) CHF (congestive heart failure) Code(s): I50.9 - HEART FAILURE, UNSPECIFIED (12) Chronic hypoxemic respiratory failure Code(s): J96.11 - CHRONIC RESPIRATORY FAILURE WITH HYPOXIA (13) DVT prophylaxis Code(s): LDM0135 - (14) Dehydration Code(s): E86.0 - DEHYDRATION (15) Diabetes Code(s): E11.9 - TYPE 2 DIABETES MELLITUS WITHOUT COMPLICATIONS Qualifiers: Diabetes mellitus type: type 2 (16) GI bleed Code(s): K92.2 - GASTROINTESTINAL HEMORRHAGE, UNSPECIFIED (17) Hx of CABG Code(s): Z95.1 - PRESENCE OF AORTOCORONARY BYPASS GRAFT (18) Hypotension Code(s): I95.9 - HYPOTENSION, UNSPECIFIED (19) Melena Code(s): K92.1 - MELENA (20) Obesity Code(s): E66.9 - OBESITY, UNSPECIFIED (21) Renal insufficiency Code(s): N28.9 - DISORDER OF KIDNEY AND URETER, UNSPECIFIED (22) Symptomatic anemia Code(s): D64.9 - ANEMIA, UNSPECIFIED (23) Symptomatic anemia Code(s): D64.9 - ANEMIA, UNSPECIFIED (24) Syncope Code(s): R55 - SYNCOPE AND COLLAPSE (25) Atrial fibrillation Code(s): I48.91 - UNSPECIFIED ATRIAL FIBRILLATION (26) Congestive heart failure with left ventricular systolic dysfunction Code(s): I50.20 - UNSPECIFIED SYSTOLIC (CONGESTIVE) HEART FAILURE (27) Diabetes Code(s): E11.9 - TYPE 2 DIABETES MELLITUS WITHOUT COMPLICATIONS (28) HTN (hypertension) Code(s): I10 - ESSENTIAL (PRIMARY) HYPERTENSION Qualifiers: (29) Hyperlipidemia Code(s): E78.5 - HYPERLIPIDEMIA, UNSPECIFIED Qualifiers: (30) Hypothyroid Code(s): E03.9 - HYPOTHYROIDISM, UNSPECIFIED Qualifiers: (31) Morbid obesity Code(s): E66.01 - MORBID (SEVERE) OBESITY DUE TO EXCESS CALORIES (32) Obstructive sleep apnea Code(s): G47.33 - OBSTRUCTIVE SLEEP APNEA (ADULT) (PEDIATRIC) (33) S/P implantation of automatic cardioverter/defibrillator (AICD) Code(s): Z95.810 - PRESENCE OF AUTOMATIC (IMPLANTABLE) CARDIAC DEFIBRILLATOR Assessment/Plan imp; copd exacerbation hypotension arf chf systolic ischemic cmp ashd s/p cabg dm htn hlp Plan; hold lasix cont pulm rx and abx and steroids f/u bun cr ekg CC time 75 min
--- NOTE | 2018-02-08 13:40 | CON.PULM ---
Consult Consult Specialty:: PULMONARY Referred by:: Dr. Saravia Reason for Consultation:: shortness of breath - History of Present Illness Chief Complaint: shortness of breath History of Present Illness: 62yo male with h/o COPD, chronic hypoxic respiratory failure on home O2, severe LV systolic dysfunction s/p ICD, CAD s/p CABG, atrial fibrillation, HTN, DM, hyperlipidemia, SHELDON on CPAP who presents with worsening shortness of breath and cough x 4 days. Denies chest pain but with tightness. No wheezing. Reports leg swelling, worsening orthopnea and PND. No fevers, chills or sweats. Compliant with CPAP at home. Was told he had "fluid around his heart" by his manager sports about his month ago and his diuretics were increased. - History Source History Provided By: Patient, Significant Other, Medical Record Limitations to Obtaining History: No Limitations - Past Medical History Cardio/Vascular: Yes: AFIB, CAD, CHF, HTN, Hyperlipdemia, Murmur Pulmonary: Yes: COPD, O2 Dependent, Sleep Apnea (on CPAP) Gastrointestinal: Yes: GI Bleed Renal/: Yes: Renal Inusuff (recent; ?prerenal azotemia) Psych: Yes: Anxiety, Panic Endocrine: Yes: Diabetes Mellitus - Past Surgical History Past Surgical History: Yes: AICD, CABG, Permanent Pacemaker, Stent (coronary) - Alcohol/Substance Use Hx Alcohol Use: No History of Substance Use: reports: None - Smoking History Smoking history: Former smoker Have you smoked in the past 12 months: No Aproximately how many cigarettes per day: 0 If you are a former smoker, when did you quit?: 2008 - Social History Usual Living Arrangement: With Spouse ADL: Independent History of Recent Travel: No Home Medications - Allergies Allergies/Adverse Reactions: Allergies Allergy/AdvReac Type Severity Reaction Status Date / Time No Known Drug Allergies Allergy Verified 02/07/18 16:40 - Home Medications Home Medications: Ambulatory Orders Acetazolamide 25,000 gm MC BID 02/07/18 Apixaban [Eliquis] 5 mg PO BID 02/07/18 Aspirin [Елена Chewable] 81 mg PO DAILY 02/07/18 Atorvastatin Ca [Lipitor] 20 mg PO BID 02/07/18 Carvedilol 3.125 mg PO BID 02/07/18 Furosemide [Lasix] 80 mg PO BID 02/07/18 Gabapentin 400 mg PO BID 02/07/18 Levothyroxine [Synthroid -] 25 mcg PO DAILY 02/07/18 Lisinopril [Zestril] 2.5 mg PO BID 02/07/18 Metformin HCl [Glucophage] 1,000 mg PO BID 02/07/18 Potassium Chloride 20 meq PO BID 02/07/18 Prednisone [Deltasone] 20 mg PO DAILY 02/07/18 Spironolactone 25 mg PO DAILY 02/07/18 Tamsulosin HCl 0.4 mg PO DAILY 02/07/18 Review of Systems - Review of Systems Constitutional: denies: Chills, Fever Eyes: denies: Recent Change in Vision HENT: denies: Nasal Congestion, Throat Pain Neck: denies: Stiffness, Tenderness Cardiovascular: reports: Edema, Shortness of Breath. denies: Chest Pain, Palpitations Respiratory: reports: Cough, Exercise Intolerance, Orthopnea, PND, SOB on Exertion. denies: Hemoptysis, Wheezing Gastrointestinal: denies: Abdominal Pain, Nausea, Vomiting Genitourinary: denies: Dysuria, Hematuria Neurological: denies: Dizziness, Headache Endocrine: denies: Unexplained Weight Loss Physical Exam Vital Sings: Vital Signs Temperature 97.6 F 02/08/18 13:29 Pulse Rate 74 02/08/18 13:29 Respiratory Rate 20 02/08/18 13:29 Blood Pressure 106/64 02/08/18 13:29 O2 Sat by Pulse Oximetry (%) 93 L 02/08/18 08:00 Constitutional: Yes: Mild Distress Eyes: Yes: Conjunctiva Clear, EOM Intact HENT: Yes: Atraumatic, Normocephalic Neck: Yes: Supple, Trachea Midline Cardiovascular: Yes: Regular Rate and Rhythm Respiratory: Yes: Diminished (decreased breath sounds at the bases) ...Clubbing: No Gastrointestinal: Yes: Normal Bowel Sounds, Soft, Abdomen, Obese. No: Tenderness Edema: Yes Neurological: Yes: Alert, Oriented Labs: CBC, BMP 02/08/18 07:18 02/08/18 07:18 ABG Results ABG pH 7.34 (7.35-7.45) L 02/08/18 08:00 ABG pCO2 at Pt Temp 49.5 mmHg (35-45) H D 02/08/18 08:00 ABG pO2 at Pt Temp 60.3 mmHg (80-100) L 02/08/18 08:00 ABG HCO3 26.1 meq/L (22-26) H 02/08/18 08:00 ABG O2 Sat (Measured) 87.1 % (90-98.9) L 02/08/18 08:00 ABG O2 Content 11.3 % vol (15-22) L 02/08/18 08:00 ABG Base Excess 0.5 meq/l (-2-2) 02/08/18 08:00 Imaging - Results Chest X-ray: Report Reviewed, Image Reviewed Problem List - Problems (1) Acute on chronic respiratory failure with hypoxemia Code(s): J96.21 - ACUTE AND CHRONIC RESPIRATORY FAILURE WITH HYPOXIA (2) Acute on chronic systolic CHF (congestive heart failure) Code(s): I50.23 - ACUTE ON CHRONIC SYSTOLIC (CONGESTIVE) HEART FAILURE (3) Qozub-md-raodzue kidney injury Code(s): N17.9 - ACUTE KIDNEY FAILURE, UNSPECIFIED; N18.9 - CHRONIC KIDNEY DISEASE, UNSPECIFIED (4) CAD (coronary artery disease) Code(s): I25.10 - ATHSCL HEART DISEASE OF [place] CORONARY ARTERY W/O ANG PCTRS (5) Diabetes Code(s): E11.9 - TYPE 2 DIABETES MELLITUS WITHOUT COMPLICATIONS Qualifiers: Diabetes mellitus type: type 2 (6) Atrial fibrillation Code(s): I48.91 - UNSPECIFIED ATRIAL FIBRILLATION (7) Diabetes Code(s): E11.9 - TYPE 2 DIABETES MELLITUS WITHOUT COMPLICATIONS (8) HTN (hypertension) Code(s): I10 - ESSENTIAL (PRIMARY) HYPERTENSION Qualifiers: (9) Hyperlipidemia Code(s): E78.5 - HYPERLIPIDEMIA, UNSPECIFIED Qualifiers: (10) Obstructive sleep apnea Code(s): G47.33 - OBSTRUCTIVE SLEEP APNEA (ADULT) (PEDIATRIC) Assessment/Plan Acute on Chronic Hypoxic Respiratory Failure r/o Acute on Chronic Systolic Heart Failure r/o Acute COPD Exacerbation Atrial Fibrillation Pulmonary HTN CAD s/p CABG Obstructive Sleep Apnea HTN DM - lasix per cardiology - monitor urine output, creatinine - empiric medrol - inhaled bronchodilators - O2 to keep SpO2 >90% - BiPAP at night and PRN during day - rate control - continue anticoagulation - echocardiogram Thank you for this consult Mir Alvarado MD
--- NOTE | 2018-02-08 15:24 | CONSULT ---
Consult Consult Specialty:: Nephrology Reason for Consultation:: CKD with acute component - History of Present Illness Chief Complaint: shortness of breath History of Present Illness: Pt is a 62 year old male with pmhx of COPD on 3 L home o2, CHF with severe LV dysfunction, CAD, AICD, CABG, a-fib, HTN, DM, HLD and SHELDON who presented to the ER with worsening shortness of breath. He says that he has been on diuretics and that the doses have been increased several times. He complains of lower ext edema. His says that he was found to have fluid around his lung and his heart. Pt and do not seem to have much insight to the degree and etiology of failure. He denies fevers or chills. He denies nsaid use. He denies history of kidney disease although he had abnormal renal function in the past. - History Source History Provided By: Patient, Family Member, Medical Record - Past Medical History Cardio/Vascular: Yes: AFIB, CAD, CHF, HTN, Hyperlipdemia, Murmur Pulmonary: Yes: COPD, O2 Dependent, Sleep Apnea (on CPAP) Gastrointestinal: Yes: GI Bleed Renal/: Yes: Renal Inusuff (recent; ?prerenal azotemia) Psych: Yes: Anxiety, Panic Endocrine: Yes: Diabetes Mellitus - Past Surgical History Past Surgical History: Yes: AICD, CABG, Permanent Pacemaker, Stent (coronary) - Alcohol/Substance Use Hx Alcohol Use: No History of Substance Use: reports: None - Smoking History Smoking history: Former smoker Have you smoked in the past 12 months: No Aproximately how many cigarettes per day: 0 If you are a former smoker, when did you quit?: 2008 - Social History Usual Living Arrangement: With Spouse ADL: Independent History of Recent Travel: No Home Medications - Allergies Allergies/Adverse Reactions: Allergies Allergy/AdvReac Type Severity Reaction Status Date / Time No Known Drug Allergies Allergy Verified 02/07/18 16:40 - Home Medications Home Medications: Ambulatory Orders Acetazolamide 25,000 gm MC BID 02/07/18 Apixaban [Eliquis] 5 mg PO BID 02/07/18 Aspirin [Елена Chewable] 81 mg PO DAILY 02/07/18 Atorvastatin Ca [Lipitor] 20 mg PO BID 02/07/18 Carvedilol 3.125 mg PO BID 02/07/18 Furosemide [Lasix] 80 mg PO BID 02/07/18 Gabapentin 400 mg PO BID 02/07/18 Levothyroxine [Synthroid -] 25 mcg PO DAILY 02/07/18 Lisinopril [Zestril] 2.5 mg PO BID 02/07/18 Metformin HCl [Glucophage] 1,000 mg PO BID 02/07/18 Potassium Chloride 20 meq PO BID 02/07/18 Prednisone [Deltasone] 20 mg PO DAILY 02/07/18 Spironolactone 25 mg PO DAILY 02/07/18 Tamsulosin HCl 0.4 mg PO DAILY 02/07/18 Family Disease History - Family Disease History Family History: Denies Review of Systems - Review of Systems Constitutional: reports: Malaise. denies: Chills, Fever Neck: reports: No Symptoms Cardiovascular: reports: Edema, Shortness of Breath Respiratory: reports: Cough, SOB, SOB on Exertion, Wheezing Gastrointestinal: reports: No Symptoms Genitourinary: reports: No Symptoms Musculoskeletal: reports: No Symptoms Integumentary: reports: No Symptoms Neurological: reports: No Symptoms Endocrine: reports: No Symptoms Hematology/Lymphatic: reports: No Symptoms Psychiatric: reports: No Symptoms Physical Exam Vital Signs: Vital Signs Temperature 98.2 F 02/08/18 13:49 Pulse Rate 80 02/08/18 13:49 Respiratory Rate 20 02/08/18 13:49 Blood Pressure 104/64 02/08/18 13:49 O2 Sat by Pulse Oximetry (%) 93 L 02/08/18 08:00 Constitutional: Yes: Calm Eyes: Yes: Conjunctiva Clear Cardiovascular: Yes: S1, S2 Respiratory: Yes: On Venti-Mask, Wheezes Gastrointestinal: Yes: Soft, Abdomen, Obese Renal/: Yes: WNL Musculoskeletal: Yes: WNL Edema: Yes Edema: LLE: 2+, RLE: 2+ Neurological: Yes: Oriented Psychiatric: Yes: Oriented Labs: CBC, BMP 02/08/18 07:18 02/08/18 07:18 Laboratory Tests 08/12/17 08/14/17 08/30/17 07:04 06:15 11:45 WBC Hgb Creatinine 1.4 H 1.4 H 2.3 H D Urine Protein Urine Blood 08/31/17 09/01/17 01/11/18 07:10 07:10 08:11 WBC Hgb Creatinine 1.8 H D 1.2 D 1.4 H Urine Protein Urine Blood 02/04/18 02/07/18 02/07/18 13:48 17:01 17:01 WBC Hgb 9.8 L Creatinine 1.9 H 2.3 H Urine Protein Urine Blood 02/07/18 02/08/18 02/08/18 21:26 07:18 07:18 WBC 3.9 L Hgb 9.6 L Creatinine 2.0 H Urine Protein Negative Urine Blood Negative Imaging - Results Chest X-ray: Report Reviewed Problem List - Problems (1) CKD (chronic kidney disease) Code(s): N18.9 - CHRONIC KIDNEY DISEASE, UNSPECIFIED (2) COPD exacerbation Code(s): J44.1 - CHRONIC OBSTRUCTIVE PULMONARY DISEASE W (ACUTE) EXACERBATION (3) HARMAN (acute kidney injury) Code(s): N17.9 - ACUTE KIDNEY FAILURE, UNSPECIFIED Assessment/Plan Current Medications Generic Name Dose Route Start Last Admin Trade Name Freq PRN Reason Stop Dose Admin Albuterol/Ipratropium 1 amp 02/08/18 14:00 Duoneb - NEB RQID JOSE Apixaban 2.5 mg 02/08/18 10:00 02/08/18 10:26 Eliquis - PO 2.5 mg BID JOSE Administration Aspirin 81 mg 02/08/18 10:00 02/08/18 10:26 Asa - PO 81 mg DAILY JOSE Administration Atorvastatin Calcium 40 mg 02/08/18 22:00 Lipitor - PO HS JOSE Azithromycin 500 mg/ Dextrose 250 mls @ 250 mls/hr 02/08/18 10:00 02/08/18 10 :26 IVPB 02/11/18 09:59 250 mls/hr DAILY JOSE Administration Insulin Aspart 1 vial 02/08/18 07:00 02/08/18 11:01 Novolog Vial Sliding Scale - SQ 6 units ACHS JOSE Administration Protocol Levothyroxine Sodium 25 mcg 02/08/18 07:00 02/08/18 08:51 Synthroid - PO 25 mcg DAILY@0700 JOSE Administration Methylprednisolone Sodium Succinate 40 mg 02/08/18 02:00 02/08/18 10:26 Solu-Medrol - IVPUSH 40 mg Q8H-IV JOSE Administration Impression 1. CKD 2. HARMAN 3. CHF 4. copd 5. DM 6. HTN 7. hypothyroidism 8. HLD 9 SHELDON Plan - renal function is starting to improve - ua neg for blood pr protein - diruetics on hold - repeat labs in am - check renal ultrasound - agree with steroids - will follow - discussed case at great length with pt and his - check echo - cardiology follow up
[2018-02-08] MEDS: ALBUTEROL SO4 2.5/IPRATROPIUM 0.5 INH SOL 3 ML VIAL.NEB. NEB SCH ×3 (15:47→20:15)
--- NOTE | 2018-02-08 17:35 | ECHO ---
Name: RUY MAURER Exam:Adult Echocardiogram Study Date: 02/08/2018 04:10 PM Age: 62 yrs Reason For Study: r/o effusion Height: 67 in Weight: 244 lb BSA: 2.2 m2 MMode/2D Measurements & Calculations IVSd: 1.8 cm Ao root diam: 3.1 cm LVIDd: 4.2 cm LA dimension: 4.1 cm LVIDs: 2.9 cm LVPWd: 1.4 cm LVPWs: 2.1 cm EDV(Teich): 78.2 ml ESV(Teich): 33.3 ml Doppler Measurements & Calculations Ao V2 max: 202.8 cm/sec LV V1 max P.2 mmHg Ao max P.6 mmHg LV V1 max: 102.7 cm/sec TR max tray: 326.8 cm/sec PA V2 max: 106.6 cm/sec TR max P.6 mmHg PA max P.6 mmHg RVSP(TR): 53.6 mmHg Med Peak E' Tray: 8.0 cm/sec RAP systole: 10.0 mmHg Lat Peak E' Tray: 13.2 cm/sec Procedure The study was technically adequate with some images being suboptimal in quality. Left Ventricle The left ventricle is normal in size. Left ventricular systolic function is severely reduced. Ejectio n Fraction = 15-20%. Apical wall motion abnormality may reflect pacemaker activation. Septal motion is consistent with post-operative state. Right Ventricle The right ventricle is mildly dilated. There is a pacemaker lead in the right ventricle. The right ve ntricular systolic function is mildly reduced. Atria The left atrium is moderately dilated. The right atrium is moderately dilated. A dilated inferior ricardo a cava suggests increased right atrial pressure. Mitral Valve There is mild mitral valve thickening. There is trace mitral regurgitation. Tricuspid Valve The tricuspid valve is not well visualized. There is mild tricuspid regurgitation. Right ventricular systolic pressure is elevated at 64 mmhg. There is severe pulmonary hypertension. Aortic Valve There is mild aortic sclerosis.;. The aortic valve opens well. Trace aortic regurgitation. Pulmonic Valve The pulmonic valve is not well visualized. There is no pulmonic valvular regurgitation. Great Vessels The aortic root is normal size. Pericardium/Pleura There is no pericardial effusion. Interpretation Summary There is no comparison study available. The left ventricle is normal in size. The right ventricular systolic function is mildly reduced. There is mild aortic sclerosis.; There is trace mitral regurgitation. Trace aortic regurgitation. Left ventricular systolic function is severely reduced. Apical wall motion abnormality may reflect pacemaker activation. Septal motion is consistent with post-operative state. There is a pacemaker lead in the right ventricle. The left atrium is moderately dilated. The right atrium is moderately dilated. There is severe pulmonary hypertension. A dilated inferior vena cava suggests increased right atrial pressure. Marcial Angel MD 02/08/2018 05:34 PM
[2018-02-08 20:01] LABS: URINE CREATININE 59.8 mg/dL (2-36)
[2018-02-08] MEDS: ATORVASTATIN CA 40 MG TABLET (FP) PO SCH (21:43)
[2018-02-09] MEDS: methylPREDNISolone NA SUCC 40 MG/1 ML VIAL IVPUSH SCH ×3 (02:09→17:05)
[2018-02-09] MEDS: INSULIN SLIDING SCALE (NOVOLOG) 1 VIAL SQ SCH ×3 (06:29→17:05)
[2018-02-09] MEDS: LEVOTHYROXINE NA 25 MCG TABLET (FP) PO SCH (06:29)
[2018-02-09 06:38] LABS: HEMATOCRIT 31.5 % (35.4-49); HEMOGLOBIN 9.6 GM/dL (11.7-16.9); MCH 28.9 pg (25.7-33.7); MCHC 30.6 g/dl (32.0-35.9); MEAN CELL VOLUME 94.3 fl (80-96); MEAN PLT VOLUME 9.5 fl (7.5-11.1); PLATELET COUNT 132 K/MM3 (134-434); RBC 3.34 M/mm3 (4.00-5.60); RDW 25.4 % (11.9-15.9); WHITE BLOOD COUNT 4.8 K/mm3 (4.0-10.0)
[2018-02-09 07:17] LABS: ALBUMIN 3.6 g/dl (3.4-5.0); ALK PHOS 108 U/L (45-117); ANION GAP 7 MMOL/L (8-16); BILIRUBIN,TOTAL 0.8 mg/dL (0.2-1); BLOOD UREA NITROGEN 48 mg/dL (7-18); CALCIUM 9.6 mg/dL (8.5-10.1); CHLORIDE 102 mmol/L (98-107); CHOLESTEROL 116 mg/dL (50-200); CO2 28 mmol/L (21-32); CREATININE 1.5 mg/dL (0.55-1.3); GLUCOSE,RANDOM 173 mg/dL (74-106); HDL CHOLESTEROL 46 mg/dL (40-60); POTASSIUM 4.3 mmol/L (3.5-5.1); SGOT/AST 13 U/L (15-37); SGPT/ALT 26 U/L (13-61); SODIUM 138 mmol/L (136-145); TOT PROT 7.7 g/dl (6.4-8.2); TRIGLYCERIDES 33 mg/dL (0-150)
[2018-02-09] MEDS: ALBUTEROL SO4 2.5/IPRATROPIUM 0.5 INH SOL 3 ML VIAL.NEB. NEB SCH ×4 (08:00→21:00)
--- NOTE | 2018-02-09 08:55 | PN ---
Progress Note, Physician - Current Medication List Current Medications: Active Medications Albuterol/Ipratropium (Duoneb -) 1 amp NEB RQID [facility] Last Admin: 02/08/18 20:15 Dose: 1 amp Apixaban (Eliquis -) 2.5 mg PO BID [facility] Last Admin: 02/08/18 21:43 Dose: 2.5 mg Aspirin (Asa -) 81 mg PO DAILY [facility] Last Admin: 02/08/18 10:26 Dose: 81 mg Atorvastatin Calcium (Lipitor -) 40 mg PO HS [facility] Last Admin: 02/08/18 21:43 Dose: 40 mg Azithromycin 500 mg/ Dextrose 250 mls @ 250 mls/hr IVPB DAILY [facility] Stop: 02/11/18 09:59 Last Admin: 02/08/18 10:26 Dose: 250 mls/hr Insulin Aspart (Novolog Vial Sliding Scale -) 1 vial SQ [facility]; Protocol Last Admin: 02/09/18 06:29 Dose: 2 units Levothyroxine Sodium (Synthroid -) 25 mcg PO DAILY@0700 [facility] Last Admin: 02/09/18 06:29 Dose: 25 mcg Methylprednisolone Sodium Succinate (Solu-Medrol -) 40 mg IVPUSH Q8H-IV [facility] Last Admin: 02/09/18 02:09 Dose: 40 mg - Objective Vital Signs: Vital Signs Temperature 97.1 F L 02/09/18 06:00 Pulse Rate 72 02/09/18 06:00 Respiratory Rate 12 02/09/18 06:00 Blood Pressure 122/69 02/09/18 06:00 O2 Sat by Pulse Oximetry (%) 92 L 02/08/18 22:30 Cardiovascular: Yes: S1, S2 Respiratory: Yes: On Nasal O2, Rhonchi Gastrointestinal: Yes: Normal Bowel Sounds, Soft Edema: Yes Labs: CBC, BMP 02/09/18 05:30 02/09/18 05:30 Assessment/Plan - Problems (1) COPD exacerbation Assessment/Plan: oxygen solumedrol nebulizer keep oxygen >90 pulm consult Code(s): J44.1 - CHRONIC OBSTRUCTIVE PULMONARY DISEASE W (ACUTE) EXACERBATION (2) Acute on chronic systolic CHF (congestive heart failure) Assessment/Plan: - lasix iv -elevated bnp -echo -cardiology eval -I/o -given low BP and elevate Cr zestril on hold -coreg and aldactone on hold as well--per cardio and renal Code(s): I50.23 - ACUTE ON CHRONIC SYSTOLIC (CONGESTIVE) HEART FAILURE (3) Anemia Assessment/Plan: -iron panel Code(s): D64.9 - ANEMIA, UNSPECIFIED (4) Diabetes Assessment/Plan: -sliding scale -hgba1c -hold metformin given inc creatinine -bgm Code(s): E11.9 - TYPE 2 DIABETES MELLITUS WITHOUT COMPLICATIONS Qualifiers: Diabetes mellitus type: type 2 (5) Renal insufficiency Assessment/Plan: -renal cosnult Code(s): N28.9 - DISORDER OF KIDNEY AND URETER, UNSPECIFIED (6) Hypothyroid Assessment/Plan: -tsh -synthroid Code(s): E03.9 - HYPOTHYROIDISM, UNSPECIFIED Qualifiers: (7) CAD (coronary artery disease) Assessment/Plan: -s/p CABG -aspirin -statin -BB curently on hold Code(s): I25.10 - ATHSCL HEART DISEASE OF [place] CORONARY ARTERY W/O ANG PCTRS (8) Atrial fibrillation Assessment/Plan: -on AC eliquis -monitor h/h -currently coreg on hold Code(s): I48.91 - UNSPECIFIED ATRIAL FIBRILLATION
[2018-02-09] MEDS: AZITHROMYCIN IVPB 500 MG in DEXTROSE 5%-WATER - 250 ML IVPB SCH (09:30)
[2018-02-09] MEDS: ASPIRIN 81 MG CHEWABLE TABLETS PO SCH (09:31)
[2018-02-09] MEDS: APIXABAN 2.5 MG TABLET PO SCH ×2 (09:31→21:44)
--- NOTE | 2018-02-09 09:58 | PN ---
Progress Note, Physician Chief Complaint: Pt A&Ox3; OOB in chair. No chest pain; + MORRIS on minimal exertion. History of Present Illness: 62-year-old white male, history of severe systolic CHF-->ICD, obesity, SHELDON, HLD , HTN, DM, CKD, CAD s/p CABG, afib on eliquis,, COPD on 3 L of nasal cannula at baseline, on lasix and spironolactone, here with worsening of his baseline SOB 1 week. Also complaining of chest tightness intermittently. Chest tightness not worse with exertion. No diaphoresis, nausea, vomiting, wheezing, cough, fever or chills. Seen by Dr. Link of pulmonary last week and now on prednisone taper. Also recently had his lasix increased for bilateral pedal edema which has since improved per patient - Current Medication List Current Medications: Active Medications Albuterol/Ipratropium (Duoneb -) 1 amp NEB RQID [facility] Last Admin: 02/08/18 20:15 Dose: 1 amp Apixaban (Eliquis -) 2.5 mg PO BID [facility] Last Admin: 02/09/18 09:31 Dose: 2.5 mg Aspirin (Asa -) 81 mg PO DAILY [facility] Last Admin: 02/09/18 09:31 Dose: 81 mg Atorvastatin Calcium (Lipitor -) 40 mg PO HS [facility] Last Admin: 02/08/18 21:43 Dose: 40 mg Azithromycin 500 mg/ Dextrose 250 mls @ 250 mls/hr IVPB DAILY [facility] Stop: 02/11/18 09:59 Last Admin: 02/09/18 09:30 Dose: 250 mls/hr Insulin Aspart (Novolog Vial Sliding Scale -) 1 vial SQ ACHS [facility]; Protocol Last Admin: 02/09/18 06:29 Dose: 2 units Levothyroxine Sodium (Synthroid -) 25 mcg PO DAILY@0700 [facility] Last Admin: 02/09/18 06:29 Dose: 25 mcg Methylprednisolone Sodium Succinate (Solu-Medrol -) 40 mg IVPUSH Q8H-IV [facility] Last Admin: 02/09/18 09:31 Dose: 40 mg - Objective Vital Signs: Vital Signs Temperature 98.7 F 02/09/18 09:33 Pulse Rate 70 02/09/18 09:33 Respiratory Rate 18 02/09/18 09:33 Blood Pressure 112/71 02/09/18 09:33 O2 Sat by Pulse Oximetry (%) 88 L 02/09/18 09:00 Constitutional: Yes: No Distress Eyes: Yes: WNL HENT: Yes: WNL Neck: Yes: WNL Cardiovascular: Yes: Murmur, S2 (split) Respiratory: Yes: Diminished Gastrointestinal: Yes: Soft, Abdomen, Obese ...Rectal Exam: Yes: Deferred Genitourinary: No: Anuria Musculoskeletal: Yes: Joint Stiffness, Muscle Weakness Extremities: Yes: Cool Edema: Yes Edema: LLE: Trace Peripheral Pulses WNL: Yes Neurological: Yes: Alert, Oriented, Unsteady Gait, Weakness Psychiatric: Yes: Alert, Oriented Labs: CBC, BMP 02/09/18 05:30 02/09/18 05:30 Abnormal Lab Results 02/09/18 02/09/18 02/09/18 05:30 05:30 05:30 RBC 3.34 L Hgb 9.6 L Hct 31.5 L MCHC 30.6 L RDW 25.4 H Plt Count 132 L Anion Gap 7 L BUN 48 H Creatinine 1.5 H Random Glucose 173 H Hemoglobin A1c % 7.1 H AST 13 L - ....Imaging Chest X-ray: Image Reviewed (no acute pathology) Problem List - Problems (1) Acute exacerbation of chronic obstructive pulmonary disease (COPD) Assessment/Plan: 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 Code(s): J44.1 - CHRONIC OBSTRUCTIVE PULMONARY DISEASE W (ACUTE) EXACERBATION (2) Acute on chronic respiratory failure with hypoxemia Code(s): J96.21 - ACUTE AND CHRONIC RESPIRATORY FAILURE WITH HYPOXIA (3) Acute on chronic systolic CHF (congestive heart failure) Assessment/Plan: no longer hypotensive, Restart carvedilol 3.125 mg bid. Gradually restart other CHF meds (lisinopril 2.5 mg daily; spironolactone 25 mg daily). Code(s): I50.23 - ACUTE ON CHRONIC SYSTOLIC (CONGESTIVE) HEART FAILURE (4) Diabetes Code(s): E11.9 - TYPE 2 DIABETES MELLITUS WITHOUT COMPLICATIONS Qualifiers: Diabetes mellitus type: type 2 (5) Hx of CABG Code(s): Z95.1 - PRESENCE OF AORTOCORONARY BYPASS GRAFT (6) Obesity Code(s): E66.9 - OBESITY, UNSPECIFIED (7) Renal insufficiency Code(s): N28.9 - DISORDER OF KIDNEY AND URETER, UNSPECIFIED (8) Diabetes Code(s): E11.9 - TYPE 2 DIABETES MELLITUS WITHOUT COMPLICATIONS (9) HTN (hypertension) Code(s): I10 - ESSENTIAL (PRIMARY) HYPERTENSION Qualifiers: (10) Hyperlipidemia Code(s): E78.5 - HYPERLIPIDEMIA, UNSPECIFIED Qualifiers: (11) Hypothyroid Assessment/Plan: TSH WNL Code(s): E03.9 - HYPOTHYROIDISM, UNSPECIFIED Qualifiers: (12) Obstructive sleep apnea Code(s): G47.33 - OBSTRUCTIVE SLEEP APNEA (ADULT) (PEDIATRIC) (13) S/P implantation of automatic cardioverter/defibrillator (AICD) Code(s): Z95.810 - PRESENCE OF AUTOMATIC (IMPLANTABLE) CARDIAC DEFIBRILLATOR (14) PAD (peripheral artery disease) Assessment/Plan: No DVT on US. Code(s): I73.9 - PERIPHERAL VASCULAR DISEASE, UNSPECIFIED
--- NOTE | 2018-02-09 10:47 | EKG ---
Test Reason : Blood Pressure : / mmHG Vent. Rate : 070 BPM Atrial Rate : 073 BPM P-R Int : 000 ms QRS Dur : 236 ms QT Int : 496 ms P-R-T Axes : 000 -78 096 degrees QTc Int : 535 ms Ventricular-paced rhythm ABNORMAL ECG WHEN COMPARED WITH ECG OF 11-JAN-2018 08:12, NO SIGNIFICANT CHANGE WAS FOUND Confirmed by Markus Murphy MD ([id number]) on 02/09/2018 10:47:27 AM Referred By: Confirmed By:Markus Murphy MD
[2018-02-09] MEDS: CARVEDILOL 3.125 MG TABLET (FP) PO SCH ×2 (10:56→21:44)
--- NOTE | 2018-02-09 13:50 | PN ---
Progress Note (short form) - Note Progress Note: PULMONARY States breathing better today. +nonproductive cough. Renal function improving. Vital Signs Period Temp Pulse Resp BP Sys/Villalobos Pulse Ox Last 24 Hr 97 F-99.2 F 70-80 12-20 97-122/40-86 88-92 Intake & Output 02/06/18 02/07/18 02/08/18 02/09/18 23:59 23:59 23:59 23:59 Intake Total 680 Output Total 200 Balance 680 -200 Weight 110.677 kg Gen: less tachypneic Heart: RRR Lung: distant breath sounds Abd: soft, nontender Ext: distal edema CBC, BMP 02/09/18 05:30 02/09/18 05:30 Active Medications Albuterol/Ipratropium (Duoneb -) 1 amp NEB RQID [facility] Last Admin: 02/09/18 12:20 Dose: 1 amp Apixaban (Eliquis -) 2.5 mg PO BID [facility] Last Admin: 02/09/18 09:31 Dose: 2.5 mg Aspirin (Asa -) 81 mg PO DAILY [facility] Last Admin: 02/09/18 09:31 Dose: 81 mg Atorvastatin Calcium (Lipitor -) 40 mg PO HS [facility] Last Admin: 02/08/18 21:43 Dose: 40 mg Carvedilol (Coreg -) 3.125 mg PO BID [facility] Last Admin: 02/09/18 10:56 Dose: 3.125 mg Azithromycin 500 mg/ Dextrose 250 mls @ 250 mls/hr IVPB DAILY [facility] Stop: 02/11/18 09:59 Last Admin: 02/09/18 09:30 Dose: 250 mls/hr Insulin Aspart (Novolog Vial Sliding Scale -) 1 vial SQ ACHS [facility]; Protocol Last Admin: 02/09/18 12:25 Dose: 4 units Levothyroxine Sodium (Synthroid -) 25 mcg PO DAILY@0700 [facility] Last Admin: 02/09/18 06:29 Dose: 25 mcg Methylprednisolone Sodium Succinate (Solu-Medrol -) 40 mg IVPUSH Q8H-IV [facility] Last Admin: 02/09/18 09:31 Dose: 40 mg A/P Acute on Chronic Hypoxic Respiratory Failure Acute COPD Exacerbation Atrial Fibrillation Pulmonary HTN CAD s/p CABG Obstructive Sleep Apnea HTN DM - holding diuretics - monitor urine output, creatinine - continue medrol - inhaled bronchodilators - O2 to keep SpO2 >90% - BiPAP at night and PRN during day - rate control - continue anticoagulation Problem List - Problems (1) Acute on chronic respiratory failure with hypoxemia Code(s): J96.21 - ACUTE AND CHRONIC RESPIRATORY FAILURE WITH HYPOXIA (2) Acute on chronic systolic CHF (congestive heart failure) Code(s): I50.23 - ACUTE ON CHRONIC SYSTOLIC (CONGESTIVE) HEART FAILURE (3) Lovfx-rj-sdswooc kidney injury Code(s): N17.9 - ACUTE KIDNEY FAILURE, UNSPECIFIED; N18.9 - CHRONIC KIDNEY DISEASE, UNSPECIFIED (4) CAD (coronary artery disease) Code(s): I25.10 - ATHSCL HEART DISEASE OF [place] CORONARY ARTERY W/O ANG PCTRS (5) Diabetes Code(s): E11.9 - TYPE 2 DIABETES MELLITUS WITHOUT COMPLICATIONS Qualifiers: Diabetes mellitus type: type 2 (6) Atrial fibrillation Code(s): I48.91 - UNSPECIFIED ATRIAL FIBRILLATION (7) Diabetes Code(s): E11.9 - TYPE 2 DIABETES MELLITUS WITHOUT COMPLICATIONS (8) HTN (hypertension) Code(s): I10 - ESSENTIAL (PRIMARY) HYPERTENSION Qualifiers: (9) Hyperlipidemia Code(s): E78.5 - HYPERLIPIDEMIA, UNSPECIFIED Qualifiers: (10) Obstructive sleep apnea Code(s): G47.33 - OBSTRUCTIVE SLEEP APNEA (ADULT) (PEDIATRIC)
--- NOTE | 2018-02-09 16:04 | PN ---
Progress Note, Physician History of Present Illness: Pt seen and examined at bedside. He is awake and alert. He feels that his shortness of breath is improved. He is asking to go home. His is at bedside. - Current Medication List Current Medications: Active Medications Albuterol/Ipratropium (Duoneb -) 1 amp NEB RQID [facility] Last Admin: 02/09/18 12:20 Dose: 1 amp Apixaban (Eliquis -) 2.5 mg PO BID [facility] Last Admin: 02/09/18 09:31 Dose: 2.5 mg Aspirin (Asa -) 81 mg PO DAILY [facility] Last Admin: 02/09/18 09:31 Dose: 81 mg Atorvastatin Calcium (Lipitor -) 40 mg PO HS [facility] Last Admin: 02/08/18 21:43 Dose: 40 mg Carvedilol (Coreg -) 3.125 mg PO BID [facility] Last Admin: 02/09/18 10:56 Dose: 3.125 mg Azithromycin 500 mg/ Dextrose 250 mls @ 250 mls/hr IVPB DAILY [facility] Stop: 02/11/18 09:59 Last Admin: 02/09/18 09:30 Dose: 250 mls/hr Insulin Aspart (Novolog Vial Sliding Scale -) 1 vial SQ ACHS [facility]; Protocol Last Admin: 02/09/18 12:25 Dose: 4 units Levothyroxine Sodium (Synthroid -) 25 mcg PO DAILY@0700 [facility] Last Admin: 02/09/18 06:29 Dose: 25 mcg Methylprednisolone Sodium Succinate (Solu-Medrol -) 40 mg IVPUSH Q8H-IV [facility] Last Admin: 02/09/18 09:31 Dose: 40 mg - Objective Vital Signs: Vital Signs Temperature 99.2 F 02/09/18 13:21 Pulse Rate 74 02/09/18 13:21 Respiratory Rate 18 02/09/18 13:21 Blood Pressure 97/62 02/09/18 13:21 O2 Sat by Pulse Oximetry (%) 88 L 02/09/18 09:00 Constitutional: Yes: Calm Eyes: Yes: Conjunctiva Clear HENT: Yes: Atraumatic Cardiovascular: Yes: S1, S2 Respiratory: Yes: On Nasal O2, Wheezes Gastrointestinal: Yes: Soft, Abdomen, Obese Genitourinary: Yes: WNL Musculoskeletal: Yes: WNL Edema: Yes Edema: LLE: 1+, RLE: 1+ Neurological: Yes: Oriented Psychiatric: Yes: Oriented Labs: CBC, BMP 02/09/18 05:30 02/09/18 05:30 Problem List - Problems (1) CKD (chronic kidney disease) Code(s): N18.9 - CHRONIC KIDNEY DISEASE, UNSPECIFIED (2) COPD exacerbation Code(s): J44.1 - CHRONIC OBSTRUCTIVE PULMONARY DISEASE W (ACUTE) EXACERBATION (3) HARMAN (acute kidney injury) Code(s): N17.9 - ACUTE KIDNEY FAILURE, UNSPECIFIED Assessment/Plan Current Medications Generic Name Dose Route Start Last Admin Trade Name Freq PRN Reason Stop Dose Admin Albuterol/Ipratropium 1 amp 02/08/18 14:00 02/09/18 12:20 Duoneb - NEB 1 amp RQID JOSE Administration Apixaban 2.5 mg 02/08/18 10:00 02/09/18 09:31 Eliquis - PO 2.5 mg BID JOSE Administration Aspirin 81 mg 02/08/18 10:00 02/09/18 09:31 Asa - PO 81 mg DAILY JOSE Administration Atorvastatin Calcium 40 mg 02/08/18 22:00 02/08/18 21:43 Lipitor - PO 40 mg HS JOSE Administration Carvedilol 3.125 mg 02/09/18 10:15 02/09/18 10:56 Coreg - PO 3.125 mg BID JOSE Administration Azithromycin 500 mg/ Dextrose 250 mls @ 250 mls/hr 02/08/18 10:00 02/09/18 09 :30 IVPB 02/11/18 09:59 250 mls/hr DAILY JOSE Administration Insulin Aspart 1 vial 02/08/18 07:00 02/09/18 12:25 Novolog Vial Sliding Scale - SQ 4 units ACHS JOSE Administration Protocol Levothyroxine Sodium 25 mcg 02/08/18 07:00 02/09/18 06:29 Synthroid - PO 25 mcg DAILY@0700 JOSE Administration Methylprednisolone Sodium Succinate 40 mg 02/08/18 02:00 02/09/18 09:31 Solu-Medrol - IVPUSH 40 mg Q8H-IV JOSE Administration Impression 1. CKD 2. HARMAN 3. CHF 4. copd 5. DM 6. HTN 7. hypothyroidism 8. HLD 9 SHELDON Plan - renal function is stabilizing - consider restarting diuretics in am - cont steroids with taper - discussed plan with pt and his at length - cardiology follow up - EF is 15 ot 20 percent, discussed severity of disease with pt - will follow
[2018-02-09] MEDS ORDERED: PT OWN MED DRAWER 7, Y5N ONE (19:58)
[2018-02-09] MEDS: ATORVASTATIN CA 40 MG TABLET (FP) PO SCH (21:47)
[2018-02-10] MEDS: INSULIN SLIDING SCALE (NOVOLOG) 1 VIAL SQ SCH ×5 (00:27→21:32)
[2018-02-10] MEDS: methylPREDNISolone NA SUCC 40 MG/1 ML VIAL IVPUSH SCH (01:37)
[2018-02-10] MEDS: LEVOTHYROXINE NA 25 MCG TABLET (FP) PO SCH (06:09)
[2018-02-10 06:36] LABS: ANION GAP 7 MMOL/L (8-16); BLOOD UREA NITROGEN 43 mg/dL (7-18); CALCIUM 9.2 mg/dL (8.5-10.1); CHLORIDE 101 mmol/L (98-107); CO2 29 mmol/L (21-32); CREATININE 1.4 mg/dL (0.55-1.3); GLUCOSE,RANDOM 231 mg/dL (74-106); POTASSIUM 4.2 mmol/L (3.5-5.1); SODIUM 136 mmol/L (136-145)
[2018-02-10] MEDS: ALBUTEROL SO4 2.5/IPRATROPIUM 0.5 INH SOL 3 ML VIAL.NEB. NEB SCH ×4 (07:45→21:00)
[2018-02-10 08:08] LABS: SERUM IRON SATURATION 11 % (15-55); TOTAL IRON BINDING CAPACITY 441 ug/dL (250-450); UIBC 392 ug/dL (111-343)
--- NOTE | 2018-02-10 09:08 | PN ---
Progress Note, Physician - Current Medication List Current Medications: Active Medications Albuterol/Ipratropium (Duoneb -) 1 amp NEB RQID [facility] Last Admin: 02/09/18 21:00 Dose: 1 amp Apixaban (Eliquis -) 2.5 mg PO BID [facility] Last Admin: 02/09/18 21:44 Dose: 2.5 mg Aspirin (Asa -) 81 mg PO DAILY [facility] Last Admin: 02/09/18 09:31 Dose: 81 mg Atorvastatin Calcium (Lipitor -) 40 mg PO HS [facility] Last Admin: 02/09/18 21:47 Dose: 40 mg Carvedilol (Coreg -) 3.125 mg PO BID [facility] Last Admin: 02/09/18 21:44 Dose: 3.125 mg Azithromycin 500 mg/ Dextrose 250 mls @ 250 mls/hr IVPB DAILY [facility] Stop: 02/11/18 09:59 Last Admin: 02/09/18 09:30 Dose: 250 mls/hr Insulin Aspart (Novolog Vial Sliding Scale -) [address] [facility]; Protocol Last Admin: 02/10/18 06:08 Dose: Not Given Levothyroxine Sodium (Synthroid -) 25 mcg PO DAILY@0700 [facility] Last Admin: 02/10/18 06:09 Dose: 25 mcg - Objective Vital Signs: Vital Signs Temperature 97.2 F L 02/10/18 02:00 Pulse Rate 73 02/10/18 06:00 Respiratory Rate 22 H 02/10/18 06:00 Blood Pressure 147/89 02/10/18 06:00 O2 Sat by Pulse Oximetry (%) 92 L 02/10/18 08:38 Cardiovascular: Yes: S1, S2 Respiratory: Yes: On Nasal O2, Rhonchi Gastrointestinal: Yes: Normal Bowel Sounds, Soft Labs: CBC, BMP 02/09/18 05:30 02/10/18 05:30 Assessment/Plan - Problems (1) COPD exacerbation Assessment/Plan: oxygen solumedrol--TO PREDNISONE nebulizer keep oxygen >90 pulm consult Code(s): J44.1 - CHRONIC OBSTRUCTIVE PULMONARY DISEASE W (ACUTE) EXACERBATION (2) Acute on chronic systolic CHF (congestive heart failure) Assessment/Plan: - lasix iv -elevated bnp -echo -cardiology eval -I/o -given low BP and elevate Cr zestril on hold -coreg and aldactone on hold as well--per cardio and renal Code(s): I50.23 - ACUTE ON CHRONIC SYSTOLIC (CONGESTIVE) HEART FAILURE (3) Anemia Assessment/Plan: -iron panel Code(s): D64.9 - ANEMIA, UNSPECIFIED (4) Diabetes Assessment/Plan: -sliding scale -hgba1c -hold metformin given inc creatinine -bgm Code(s): E11.9 - TYPE 2 DIABETES MELLITUS WITHOUT COMPLICATIONS Qualifiers: Diabetes mellitus type: type 2 (5) Renal insufficiency Assessment/Plan: -renal cosnult Code(s): N28.9 - DISORDER OF KIDNEY AND URETER, UNSPECIFIED (6) Hypothyroid Assessment/Plan: -tsh -synthroid Code(s): E03.9 - HYPOTHYROIDISM, UNSPECIFIED Qualifiers: (7) CAD (coronary artery disease) Assessment/Plan: -s/p CABG -aspirin -statin -BB curently on hold Code(s): I25.10 - ATHSCL HEART DISEASE OF [place] CORONARY ARTERY W/O ANG PCTRS (8) Atrial fibrillation Assessment/Plan: -on AC eliquis -monitor h/h -currently coreg on hold Code(s): I48.91 - UNSPECIFIED ATRIAL FIBRILLATION
[2018-02-10] MEDS: predniSONE 10 MG TABLET (UD) PO SCH ×2 (09:43→21:25)
[2018-02-10] MEDS: ASPIRIN 81 MG CHEWABLE TABLETS PO SCH (09:43)
[2018-02-10] MEDS: APIXABAN 2.5 MG TABLET PO SCH ×2 (09:43→21:25)
[2018-02-10] MEDS: CARVEDILOL 3.125 MG TABLET (FP) PO SCH ×2 (09:43→21:25)
[2018-02-10] MEDS ORDERED: INSULIN (NOVOLOG) ASPART 100 UNITS/ML 10ML VIAL SQ ONE (09:45)
[2018-02-10] MEDS: AZITHROMYCIN IVPB 500 MG in DEXTROSE 5%-WATER - 250 ML IVPB SCH (10:10)
--- NOTE | 2018-02-10 10:15 | PN ---
Progress Note, Physician History of Present Illness: Pt seen and examined at bedside. He is awake and alert. He does not feel that his shortness of breath is any worse. - Current Medication List Current Medications: Active Medications Albuterol/Ipratropium (Duoneb -) 1 amp NEB RQID [facility] Last Admin: 02/09/18 21:00 Dose: 1 amp Apixaban (Eliquis -) 2.5 mg PO BID [facility] Last Admin: 02/10/18 09:43 Dose: 2.5 mg Aspirin (Asa -) 81 mg PO DAILY [facility] Last Admin: 02/10/18 09:43 Dose: 81 mg Atorvastatin Calcium (Lipitor -) 40 mg PO HS [facility] Last Admin: 02/09/18 21:47 Dose: 40 mg Carvedilol (Coreg -) 3.125 mg PO BID [facility] Last Admin: 02/10/18 09:43 Dose: 3.125 mg Azithromycin 500 mg/ Dextrose 250 mls @ 250 mls/hr IVPB DAILY [facility] Stop: 02/11/18 09:59 Last Admin: 02/10/18 10:10 Dose: 250 mls/hr Insulin Aspart (Novolog Vial Sliding Scale -) 1 vial SQ ACHS [facility]; Protocol Last Admin: 02/10/18 06:08 Dose: Not Given Levothyroxine Sodium (Synthroid -) 25 mcg PO DAILY@0700 [facility] Last Admin: 02/10/18 06:09 Dose: 25 mcg Prednisone (Deltasone -) 30 mg PO BID [facility] Last Admin: 02/10/18 09:43 Dose: 30 mg - Objective Vital Signs: Vital Signs Temperature 97.2 F L 02/10/18 02:00 Pulse Rate 73 02/10/18 06:00 Respiratory Rate 22 H 02/10/18 06:00 Blood Pressure 147/89 02/10/18 06:00 O2 Sat by Pulse Oximetry (%) 92 L 02/10/18 08:38 Constitutional: Yes: Calm Eyes: Yes: Conjunctiva Clear HENT: Yes: Atraumatic Cardiovascular: Yes: S1, S2 Respiratory: Yes: On Nasal O2, Wheezes Gastrointestinal: Yes: Soft, Abdomen, Obese Genitourinary: Yes: WNL Musculoskeletal: Yes: WNL Edema: Yes Edema: LLE: 1+, RLE: 1+ Neurological: Yes: Oriented Psychiatric: Yes: Oriented Labs: CBC, BMP 02/09/18 05:30 02/10/18 05:30 Problem List - Problems (1) CKD (chronic kidney disease) Code(s): N18.9 - CHRONIC KIDNEY DISEASE, UNSPECIFIED (2) COPD exacerbation Code(s): J44.1 - CHRONIC OBSTRUCTIVE PULMONARY DISEASE W (ACUTE) EXACERBATION (3) HARMAN (acute kidney injury) Code(s): N17.9 - ACUTE KIDNEY FAILURE, UNSPECIFIED Assessment/Plan Current Medications Generic Name Dose Route Start Last Admin Trade Name Freq PRN Reason Stop Dose Admin Albuterol/Ipratropium 1 amp 02/08/18 14:00 02/09/18 21:00 Duoneb - NEB 1 amp RQID JO[facility] Administration Apixaban 2.5 mg 02/08/18 10:00 02/10/18 09:43 Eliquis - PO 2.5 mg BID [facility] Administration Aspirin 81 mg 02/08/18 10:00 02/10/18 09:43 Asa - PO 81 mg DAILY [facility] Administration Atorvastatin Calcium 40 mg 02/08/18 22:00 02/09/18 21:47 Lipitor - PO 40 mg HS JOSE Administration Carvedilol 3.125 mg 02/09/18 10:15 02/10/18 09:43 Coreg - PO 3.125 mg BID [facility] Administration Azithromycin 500 mg/ Dextrose 250 mls @ 250 mls/hr 02/08/18 10:00 02/10/18 10 :10 IVPB 02/11/18 09:59 250 mls/hr DAILY [facility] Administration Insulin Aspart 1 vial 02/08/18 07:00 02/10/18 06:08 Novolog Vial Sliding Scale - SQ Not Given ACHS [facility] Protocol Levothyroxine Sodium 25 mcg 02/08/18 07:00 02/10/18 06:09 Synthroid - PO 25 mcg DAILY@0700 [facility] Administration Prednisone 30 mg 02/10/18 10:00 02/10/18 09:43 Deltasone - PO 30 mg BID JOSE Administration Impression 1. CKD 2. HARMAN 3. CHF 4. copd 5. DM 6. HTN 7. hypothyroidism 8. HLD 9 SHELDON Plan - restart lasix - cardiology follow up - steroids with taper - will need to monitor volume status and adjust diuretics - EF is 15 ot 20 percent, discussed severity of disease with pt - will follow
--- NOTE | 2018-02-10 11:02 | PN ---
Progress Note, Physician History of Present Illness: This is a 62 y/o man with significant past medical history of COPD( on 3L), CHF with severe Systolic Dysfunction s/p ICD and Pacemaker placement, CAD s/p stenting, CABG, DM, HTN, HLD, Afib (on Eliquis), GI Bleed, Renal Insufficiency, Former Smoker, SHELDON ( on CPAP at home). Who presents to the ED with increased SOB , MORRIS, nonproductive cough and chest tightness x3-4 day. Patient reports seeing his Pulmonolgist 3 days ago and was told he would need to be admitted. Patient reports having LE swelling. Patient reports having watery diarrhea x 1 week. He reports he has had no episodes while in the ED. Patient denies fever, chills, AP , N/V, constipation, dysuria PMH Diabetes Mellitus (DM) HTN hyperlipidemia obesity COPD obstructive sleep apnea syndrome (OSAS) paroxysmal atrial fibrillation (PAF) s/p CABG 06/2014 (denies hx AR), with moderately severe systolic LV dysfunction noted at [facility] on that admission-->ICD. - Current Medication List Current Medications: Active Medications Albuterol/Ipratropium (Duoneb -) 1 amp NEB RQID [facility] Last Admin: 02/09/18 21:00 Dose: 1 amp Apixaban (Eliquis -) 2.5 mg PO BID [facility] Last Admin: 02/10/18 09:43 Dose: 2.5 mg Aspirin (Asa -) 81 mg PO DAILY [facility] Last Admin: 02/10/18 09:43 Dose: 81 mg Atorvastatin Calcium (Lipitor -) 40 mg PO HS [facility] Last Admin: 02/09/18 21:47 Dose: 40 mg Carvedilol (Coreg -) 3.125 mg PO BID [facility] Last Admin: 02/10/18 09:43 Dose: 3.125 mg Furosemide (Lasix -) 40 mg PO DAILY [facility] Azithromycin 500 mg/ Dextrose 250 mls @ 250 mls/hr IVPB DAILY [facility] Stop: 02/11/18 09:59 Last Admin: 02/10/18 10:10 Dose: 250 mls/hr Insulin Aspart (Novolog Vial Sliding Scale -) 1 vial SQ ACHS [facility]; Protocol Last Admin: 02/10/18 06:08 Dose: Not Given Levothyroxine Sodium (Synthroid -) 25 mcg PO DAILY@0700 [facility] Last Admin: 02/10/18 06:09 Dose: 25 mcg Prednisone (Deltasone -) 30 mg PO BID [facility] Last Admin: 02/10/18 09:43 Dose: 30 mg - Objective Vital Signs: Vital Signs Temperature 97.2 F L 02/10/18 02:00 Pulse Rate 73 02/10/18 06:00 Respiratory Rate 22 H 02/10/18 06:00 Blood Pressure 147/89 02/10/18 06:00 O2 Sat by Pulse Oximetry (%) 92 L 02/10/18 08:38 Eyes: Yes: WNL, Conjunctiva Clear, EOM Intact HENT: Yes: WNL, Atraumatic, Normocephalic Neck: Yes: WNL, Supple, Trachea Midline Cardiovascular: Yes: WNL, Regular Rate and Rhythm Respiratory: Yes: WNL, Regular, CTA Bilaterally Gastrointestinal: Yes: WNL, Normal Bowel Sounds Genitourinary: Yes: WNL Musculoskeletal: Yes: WNL Extremities: Yes: WNL Edema: No Integumentary: Yes: WNL Neurological: Yes: WNL, Alert, Oriented ...Motor Strength: WNL Psychiatric: Yes: WNL Labs: CBC, BMP 02/09/18 05:30 02/10/18 05:30 Problem List - Problems (1) CHF exacerbation Code(s): I50.9 - HEART FAILURE, UNSPECIFIED Qualifiers: Heart failure type: unspecified Qualified Code(s): I50.9 - Heart failure, unspecified (2) COPD exacerbation Code(s): J44.1 - CHRONIC OBSTRUCTIVE PULMONARY DISEASE W (ACUTE) EXACERBATION (3) Shortness of breath Code(s): R06.02 - SHORTNESS OF BREATH (4) HARMAN (acute kidney injury) Code(s): N17.9 - ACUTE KIDNEY FAILURE, UNSPECIFIED (5) Acute exacerbation of chronic obstructive pulmonary disease (COPD) Code(s): J44.1 - CHRONIC OBSTRUCTIVE PULMONARY DISEASE W (ACUTE) EXACERBATION (6) Acute on chronic respiratory failure with hypoxemia Code(s): J96.21 - ACUTE AND CHRONIC RESPIRATORY FAILURE WITH HYPOXIA (7) Acute on chronic systolic CHF (congestive heart failure) Code(s): I50.23 - ACUTE ON CHRONIC SYSTOLIC (CONGESTIVE) HEART FAILURE (8) Ajwqi-jw-imbjpom kidney injury Code(s): N17.9 - ACUTE KIDNEY FAILURE, UNSPECIFIED; N18.9 - CHRONIC KIDNEY DISEASE, UNSPECIFIED (9) Anemia Code(s): D64.9 - ANEMIA, UNSPECIFIED (10) CAD (coronary artery disease) Code(s): I25.10 - ATHSCL HEART DISEASE OF [place] CORONARY ARTERY W/O ANG PCTRS (11) CHF (congestive heart failure) Code(s): I50.9 - HEART FAILURE, UNSPECIFIED (12) Chronic hypoxemic respiratory failure Code(s): J96.11 - CHRONIC RESPIRATORY FAILURE WITH HYPOXIA (13) DVT prophylaxis Code(s): [id number] - (14) Dehydration Code(s): E86.0 - DEHYDRATION (15) Diabetes Code(s): E11.9 - TYPE 2 DIABETES MELLITUS WITHOUT COMPLICATIONS Qualifiers: Diabetes mellitus type: type 2 (16) GI bleed Code(s): K92.2 - GASTROINTESTINAL HEMORRHAGE, UNSPECIFIED (17) Hx of CABG Code(s): Z95.1 - PRESENCE OF AORTOCORONARY BYPASS GRAFT (18) Hypotension Code(s): I95.9 - HYPOTENSION, UNSPECIFIED (19) Melena Code(s): K92.1 - MELENA (20) Obesity Code(s): E66.9 - OBESITY, UNSPECIFIED (21) Renal insufficiency Code(s): N28.9 - DISORDER OF KIDNEY AND URETER, UNSPECIFIED (22) Symptomatic anemia Code(s): D64.9 - ANEMIA, UNSPECIFIED (23) Symptomatic anemia Code(s): D64.9 - ANEMIA, UNSPECIFIED (24) Syncope Code(s): R55 - SYNCOPE AND COLLAPSE (25) Atrial fibrillation Code(s): I48.91 - UNSPECIFIED ATRIAL FIBRILLATION (26) Congestive heart failure with left ventricular systolic dysfunction Code(s): I50.20 - UNSPECIFIED SYSTOLIC (CONGESTIVE) HEART FAILURE (27) Diabetes Code(s): E11.9 - TYPE 2 DIABETES MELLITUS WITHOUT COMPLICATIONS (28) HTN (hypertension) Code(s): I10 - ESSENTIAL (PRIMARY) HYPERTENSION Qualifiers: (29) Hyperlipidemia Code(s): E78.5 - HYPERLIPIDEMIA, UNSPECIFIED Qualifiers: (30) Hypothyroid Code(s): E03.9 - HYPOTHYROIDISM, UNSPECIFIED Qualifiers: (31) Morbid obesity Code(s): E66.01 - MORBID (SEVERE) OBESITY DUE TO EXCESS CALORIES (32) Obstructive sleep apnea Code(s): G47.33 - OBSTRUCTIVE SLEEP APNEA (ADULT) (PEDIATRIC) (33) S/P implantation of automatic cardioverter/defibrillator (AICD) Code(s): Z95.810 - PRESENCE OF AUTOMATIC (IMPLANTABLE) CARDIAC DEFIBRILLATOR Assessment/Plan - Problems (1) Acute exacerbation of chronic obstructive pulmonary disease (COPD) Assessment/Plan: 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 Code(s): J44.1 - CHRONIC OBSTRUCTIVE PULMONARY DISEASE W (ACUTE) EXACERBATION (2) Acute on chronic respiratory failure with hypoxemia Code(s): J96.21 - ACUTE AND CHRONIC RESPIRATORY FAILURE WITH HYPOXIA (3) Acute on chronic systolic CHF (congestive heart failure) Assessment/Plan: no longer hypotensive, Restart carvedilol 3.125 mg bid. Gradually restart other CHF meds (lisinopril 2.5 mg daily; spironolactone 25 mg daily). Code(s): I50.23 - ACUTE ON CHRONIC SYSTOLIC (CONGESTIVE) HEART FAILURE (4) Diabetes Code(s): E11.9 - TYPE 2 DIABETES MELLITUS WITHOUT COMPLICATIONS Qualifiers: Diabetes mellitus type: type 2 (5) Hx of CABG Code(s): Z95.1 - PRESENCE OF AORTOCORONARY BYPASS GRAFT (6) Obesity Code(s): E66.9 - OBESITY, UNSPECIFIED (7) Renal insufficiency Code(s): N28.9 - DISORDER OF KIDNEY AND URETER, UNSPECIFIED (8) Diabetes Code(s): E11.9 - TYPE 2 DIABETES MELLITUS WITHOUT COMPLICATIONS (9) HTN (hypertension) Code(s): I10 - ESSENTIAL (PRIMARY) HYPERTENSION Qualifiers: (10) Hyperlipidemia Code(s): E78.5 - HYPERLIPIDEMIA, UNSPECIFIED Qualifiers: (11) Hypothyroid Assessment/Plan: TSH WNL Code(s): E03.9 - HYPOTHYROIDISM, UNSPECIFIED Qualifiers: (12) Obstructive sleep apnea Code(s): G47.33 - OBSTRUCTIVE SLEEP APNEA (ADULT) (PEDIATRIC) (13) S/P implantation of automatic cardioverter/defibrillator (AICD) Code(s): Z95.810 - PRESENCE OF AUTOMATIC (IMPLANTABLE) CARDIAC DEFIBRILLATOR (14) PAD (peripheral artery disease) Assessment/Plan: No DVT on US. Code(s): I73.9 - PERIPHERAL VASCULAR DISEASE, UNSPECIFIED
[2018-02-10] MEDS: FUROSEMIDE 40 MG TABLET (FP) PO SCH (11:28)
--- NOTE | 2018-02-10 12:57 | PN ---
Progress Note (short form) - Note Progress Note: PULMONARY States breathing continues to improve. +cough with yellow sputum Vital Signs Period Temp Pulse Resp BP Sys/Villalobos Pulse Ox Last 24 Hr 97.2 F-99.2 F 70-80 18-25 97-147/62-89 92-95 Gen: less tachypneic Heart: RRR Lung: distant breath sounds Abd: soft, nontender Ext: distal edema CBC, BMP 02/09/18 05:30 02/10/18 05:30 Active Medications Albuterol/Ipratropium (Duoneb -) 1 amp NEB RQID [facility] Last Admin: 02/09/18 21:00 Dose: 1 amp Apixaban (Eliquis -) 2.5 mg PO BID [facility] Last Admin: 02/10/18 09:43 Dose: 2.5 mg Aspirin (Asa -) 81 mg PO DAILY [facility] Last Admin: 02/10/18 09:43 Dose: 81 mg Atorvastatin Calcium (Lipitor -) 40 mg PO HS [facility] Last Admin: 02/09/18 21:47 Dose: 40 mg Carvedilol (Coreg -) 3.125 mg PO BID [facility] Last Admin: 02/10/18 09:43 Dose: 3.125 mg Furosemide (Lasix -) 40 mg PO DAILY [facility] Last Admin: 02/10/18 11:28 Dose: 40 mg Azithromycin 500 mg/ Dextrose 250 mls @ 250 mls/hr IVPB DAILY [facility] Stop: 02/11/18 09:59 Last Admin: 02/10/18 10:10 Dose: 250 mls/hr Insulin Aspart (Novolog Vial Sliding Scale -) 1 vial SQ ACHS [facility]; Protocol Last Admin: 02/10/18 12:17 Dose: 10 units Levothyroxine Sodium (Synthroid -) 25 mcg PO DAILY@0700 [facility] Last Admin: 02/10/18 06:09 Dose: 25 mcg Prednisone (Deltasone -) 30 mg PO BID [facility] Last Admin: 02/10/18 09:43 Dose: 30 mg A/P Acute on Chronic Hypoxic Respiratory Failure Acute COPD Exacerbation Atrial Fibrillation Pulmonary HTN CAD s/p CABG Obstructive Sleep Apnea HTN DM - monitor urine output, creatinine - prednisone taper - inhaled bronchodilators - O2 to keep SpO2 >90% - BiPAP at night and PRN during day - rate control - continue anticoagulation Problem List - Problems (1) Acute on chronic respiratory failure with hypoxemia Code(s): J96.21 - ACUTE AND CHRONIC RESPIRATORY FAILURE WITH HYPOXIA (2) Acute on chronic systolic CHF (congestive heart failure) Code(s): I50.23 - ACUTE ON CHRONIC SYSTOLIC (CONGESTIVE) HEART FAILURE (3) Oxfcp-qc-[id number] kidney injury Code(s): N17.9 - ACUTE KIDNEY FAILURE, UNSPECIFIED; N18.9 - CHRONIC KIDNEY DISEASE, UNSPECIFIED (4) CAD (coronary artery disease) Code(s): I25.10 - ATHSCL HEART DISEASE OF [place] CORONARY ARTERY W/O ANG PCTRS (5) Diabetes Code(s): E11.9 - TYPE 2 DIABETES MELLITUS WITHOUT COMPLICATIONS Qualifiers: Diabetes mellitus type: type 2 (6) Atrial fibrillation Code(s): I48.91 - UNSPECIFIED ATRIAL FIBRILLATION (7) Diabetes Code(s): E11.9 - TYPE 2 DIABETES MELLITUS WITHOUT COMPLICATIONS (8) HTN (hypertension) Code(s): I10 - ESSENTIAL (PRIMARY) HYPERTENSION Qualifiers: (9) Hyperlipidemia Code(s): E78.5 - HYPERLIPIDEMIA, UNSPECIFIED Qualifiers: (10) Obstructive sleep apnea Code(s): G47.33 - OBSTRUCTIVE SLEEP APNEA (ADULT) (PEDIATRIC)
[2018-02-10] MEDS: ATORVASTATIN CA 40 MG TABLET (FP) PO SCH (21:25)
[2018-02-11] MEDS: INSULIN SLIDING SCALE (NOVOLOG) 1 VIAL SQ SCH ×3 (06:08→16:54)
[2018-02-11] MEDS: LEVOTHYROXINE NA 25 MCG TABLET (FP) PO SCH (06:09)
[2018-02-11] MEDS: ALBUTEROL SO4 2.5/IPRATROPIUM 0.5 INH SOL 3 ML VIAL.NEB. NEB SCH ×3 (08:05→15:50)
--- NOTE | 2018-02-11 08:53 | DS ---
Physical Examination Vital Signs: Vital Signs Temperature 97.8 F 02/11/18 05:59 Pulse Rate 72 02/11/18 03:23 Respiratory Rate 20 02/11/18 05:59 Blood Pressure 125/78 02/11/18 05:59 O2 Sat by Pulse Oximetry (%) 99 02/11/18 03:23 Cardiovascular: Yes: S1, S2 Respiratory: Yes: CTA Bilaterally, On Nasal O2 Gastrointestinal: Yes: Normal Bowel Sounds, Soft Labs: CBC, BMP 02/09/18 05:30 02/10/18 05:30 Discharge Summary Reason For Visit: ACUTE ON CHRONIC CONGESTIVE HEART FAILURE Current Active Problems CHF exacerbation (Acute) CKD (chronic kidney disease) (Acute) COPD exacerbation (Acute) PAD (peripheral artery disease) (Acute) Shortness of breath (Acute) Hospital Course: - Problems (1) COPD exacerbation Assessment/Plan: oxygen solumedrol--TO PREDNISONE nebulizer keep oxygen >90 pulm consult Code(s): J44.1 - CHRONIC OBSTRUCTIVE PULMONARY DISEASE W (ACUTE) EXACERBATION (2) Acute on chronic systolic CHF (congestive heart failure) Assessment/Plan: - lasix iv -elevated bnp -echo -cardiology eval -I/o -given low BP and elevate Cr zestril on hold -coreg and aldactone on hold as well--per cardio and renal Code(s): I50.23 - ACUTE ON CHRONIC SYSTOLIC (CONGESTIVE) HEART FAILURE (3) Anemia Assessment/Plan: -iron panel Code(s): D64.9 - ANEMIA, UNSPECIFIED (4) Diabetes Assessment/Plan: -sliding scale -hgba1c -hold metformin given inc creatinine -bgm Code(s): E11.9 - TYPE 2 DIABETES MELLITUS WITHOUT COMPLICATIONS Qualifiers: Diabetes mellitus type: type 2 (5) Renal insufficiency Assessment/Plan: -renal cosnult Code(s): N28.9 - DISORDER OF KIDNEY AND URETER, UNSPECIFIED (6) Hypothyroid Assessment/Plan: -tsh -synthroid Code(s): E03.9 - HYPOTHYROIDISM, UNSPECIFIED Qualifiers: (7) CAD (coronary artery disease) Assessment/Plan: -s/p CABG -aspirin -statin -BB curently on hold Code(s): I25.10 - ATHSCL HEART DISEASE OF [place] CORONARY ARTERY W/O ANG PCTRS (8) Atrial fibrillation Assessment/Plan: -on AC eliquis -monitor h/h -currently coreg on hold Code(s): I48.91 - UNSPECIFIED ATRIAL FIBRILLATION Condition: Improved - Instructions Referrals: Yamila Saravia MD [Staff Physician] - 2 Weeks Disposition: VNS/HOME HEALTH CARE - Home Medications Comprehensive Discharge Medication List: Ambulatory Orders Apixaban [Eliquis] 5 mg PO BID 02/07/18 Aspirin [Елена Chewable Aspirin] 81 mg PO DAILY 02/07/18 Atorvastatin Ca [Lipitor] 20 mg PO BID 02/07/18 Carvedilol 3.125 mg PO BID 02/07/18 Gabapentin 400 mg PO BID 02/07/18 Levothyroxine [Synthroid -] 25 mcg PO DAILY 02/07/18 Lisinopril [Zestril] 2.5 mg PO BID 02/07/18 Metformin HCl [Glucophage] 1,000 mg PO BID 02/07/18 Potassium Chloride 20 meq PO BID 02/07/18 Spironolactone 25 mg PO DAILY 02/07/18 Tamsulosin HCl 0.4 mg PO DAILY 02/07/18 Albuterol 2.5/Ipratropium 0.5 [Duoneb -] 1 amp NEB RQID amp 02/11/18 Furosemide [Lasix -] 40 mg PO DAILY tablet 02/11/18 predniSONE [Deltasone -] 30 mg PO BID tablet 02/11/18
[2018-02-11] MEDS: APIXABAN 2.5 MG TABLET PO SCH (09:35)
[2018-02-11] MEDS: CARVEDILOL 3.125 MG TABLET (FP) PO SCH (09:35)
[2018-02-11] MEDS: FUROSEMIDE 40 MG TABLET (FP) PO SCH (09:35)
[2018-02-11] MEDS: predniSONE 10 MG TABLET (UD) PO SCH (09:36)
[2018-02-11] MEDS: ASPIRIN 81 MG CHEWABLE TABLETS PO SCH (09:40)
--- NOTE | 2018-02-11 13:01 | PN ---
Progress Note, Physician History of Present Illness: Pt seen and examined at bedside. He is awake and alert. He feels that his breathing is much improved. - Current Medication List Current Medications: Active Medications Albuterol/Ipratropium (Duoneb -) 1 amp NEB RQID [facility] Last Admin: 02/11/18 11:30 Dose: 1 amp Apixaban (Eliquis -) 2.5 mg PO BID [facility] Last Admin: 02/11/18 09:35 Dose: 2.5 mg Aspirin (Asa -) 81 mg PO DAILY [facility] Last Admin: 02/11/18 09:40 Dose: 81 mg Atorvastatin Calcium (Lipitor -) 40 mg PO HS [facility] Last Admin: 02/10/18 21:25 Dose: 40 mg Carvedilol (Coreg -) 3.125 mg PO BID [facility] Last Admin: 02/11/18 09:35 Dose: 3.125 mg Furosemide (Lasix -) 40 mg PO DAILY [facility] Last Admin: 02/11/18 09:35 Dose: 40 mg Insulin Aspart (Novolog Vial Sliding Scale -) 1 vial SQ [facility]; Protocol Last Admin: 02/11/18 12:06 Dose: 6 units Levothyroxine Sodium (Synthroid -) 25 mcg PO DAILY@0700 [facility] Last Admin: 02/11/18 06:09 Dose: 25 mcg Prednisone (Deltasone -) 30 mg PO BID [facility] Last Admin: 02/11/18 09:36 Dose: 30 mg - Objective Vital Signs: Vital Signs Temperature 98.9 F 02/11/18 10:00 Pulse Rate 74 02/11/18 11:37 Respiratory Rate 15 02/11/18 10:00 Blood Pressure 149/43 L 02/11/18 10:00 O2 Sat by Pulse Oximetry (%) 95 02/11/18 11:37 Constitutional: Yes: Calm Eyes: Yes: Conjunctiva Clear HENT: Yes: Atraumatic Neck: Yes: Supple Cardiovascular: Yes: S1, S2 Respiratory: Yes: On Nasal O2 Gastrointestinal: Yes: Normal Bowel Sounds, Soft Genitourinary: Yes: WNL Musculoskeletal: Yes: WNL Extremities: Yes: WNL Edema: LLE: Trace, RLE: Trace Neurological: Yes: Oriented Psychiatric: Yes: Oriented Labs: CBC, BMP 02/09/18 05:30 02/10/18 05:30 Problem List - Problems (1) CKD (chronic kidney disease) Code(s): N18.9 - CHRONIC KIDNEY DISEASE, UNSPECIFIED (2) COPD exacerbation Code(s): J44.1 - CHRONIC OBSTRUCTIVE PULMONARY DISEASE W (ACUTE) EXACERBATION (3) HARMAN (acute kidney injury) Code(s): N17.9 - ACUTE KIDNEY FAILURE, UNSPECIFIED Assessment/Plan Current Medications Generic Name Dose Route Start Last Admin Trade Name Freq PRN Reason Stop Dose Admin Albuterol/Ipratropium 1 amp 02/08/18 14:00 02/11/18 11:30 Duoneb - NEB 1 amp RQID JOSE Administration Apixaban 2.5 mg 02/08/18 10:00 02/11/18 09:35 Eliquis - PO 2.5 mg BID JOSE Administration Aspirin 81 mg 02/08/18 10:00 02/11/18 09:40 Asa - PO 81 mg DAILY JOSE Administration Atorvastatin Calcium 40 mg 02/08/18 22:00 02/10/18 21:25 Lipitor - PO 40 mg HS JOSE Administration Carvedilol 3.125 mg 02/09/18 10:15 02/11/18 09:35 Coreg - PO 3.125 mg BID JOSE Administration Furosemide 40 mg 02/10/18 11:00 02/11/18 09:35 Lasix - PO 40 mg DAILY [facility] Administration Insulin Aspart 1 vial 02/08/18 07:00 02/11/18 12:06 Novolog Vial Sliding Scale - SQ 6 units ACHS [facility] Administration Protocol Levothyroxine Sodium 25 mcg 02/08/18 07:00 02/11/18 06:09 Synthroid - PO 25 mcg DAILY@0700 [facility] Administration Prednisone 30 mg 02/10/18 10:00 02/11/18 09:36 Deltasone - PO 30 mg BID JOSE Administration Impression 1. CKD 2. HARMAN 3. CHF 4. copd 5. DM 6. HTN 7. hypothyroidism 8. HLD 9 SHELDON Plan - cont lasix, can resume home dose of diuretics - pt will need close follow up with cardio - can see in office - steroids with taper - discussed low salt diet - EF is 15 ot 20 percent, discussed severity of disease with pt again - will follow
--- NOTE | 2018-02-11 13:12 | PN ---
Progress Note (short form) - Note Progress Note: PULMONARY States breathing continues to improve. +coughing less. No fevers or chills. Vital Signs Period Temp Pulse Resp BP Sys/Villalobos Pulse Ox Last 24 Hr 97.4 F-98.5 F 72-79 17-20 111-125/72-78 91-99 Gen: less tachypneic Heart: RRR Lung: distant breath sounds Abd: soft, nontender Ext: distal edema CBC, BMP 02/09/18 05:30 02/10/18 05:30 Active Medications Albuterol/Ipratropium (Duoneb -) 1 amp NEB RQID [facility] Last Admin: 02/11/18 11:30 Dose: 1 amp Apixaban (Eliquis -) 2.5 mg PO BID [facility] Last Admin: 02/11/18 09:35 Dose: 2.5 mg Aspirin (Asa -) 81 mg PO DAILY [facility] Last Admin: 02/11/18 09:40 Dose: 81 mg Atorvastatin Calcium (Lipitor -) 40 mg PO HS [facility] Last Admin: 02/10/18 21:25 Dose: 40 mg Carvedilol (Coreg -) 3.125 mg PO BID [facility] Last Admin: 02/11/18 09:35 Dose: 3.125 mg Furosemide (Lasix -) 40 mg PO DAILY [facility] Last Admin: 02/11/18 09:35 Dose: 40 mg Insulin Aspart (Novolog Vial Sliding Scale -) 1 vial SQ [facility]; Protocol Last Admin: 02/11/18 12:06 Dose: 6 units Levothyroxine Sodium (Synthroid -) 25 mcg PO DAILY@0700 [facility] Last Admin: 02/11/18 06:09 Dose: 25 mcg Prednisone (Deltasone -) 30 mg PO BID [facility] Last Admin: 02/11/18 09:36 Dose: 30 mg A/P Acute on Chronic Hypoxic Respiratory Failure Acute COPD Exacerbation Atrial Fibrillation Pulmonary HTN CAD s/p CABG Obstructive Sleep Apnea HTN DM - monitor urine output, creatinine - prednisone taper - inhaled bronchodilators - O2 to keep SpO2 >90% - BiPAP at night and PRN during day - rate control - continue anticoagulation Problem List - Problems (1) Acute on chronic respiratory failure with hypoxemia Code(s): J96.21 - ACUTE AND CHRONIC RESPIRATORY FAILURE WITH HYPOXIA (2) Acute on chronic systolic CHF (congestive heart failure) Code(s): I50.23 - ACUTE ON CHRONIC SYSTOLIC (CONGESTIVE) HEART FAILURE (3) [id number] kidney injury Code(s): N17.9 - ACUTE KIDNEY FAILURE, UNSPECIFIED; N18.9 - CHRONIC KIDNEY DISEASE, UNSPECIFIED (4) CAD (coronary artery disease) Code(s): I25.10 - ATHSCL HEART DISEASE OF [place] CORONARY ARTERY W/O ANG PCTRS (5) Diabetes Code(s): E11.9 - TYPE 2 DIABETES MELLITUS WITHOUT COMPLICATIONS Qualifiers: Diabetes mellitus type: type 2 (6) Atrial fibrillation Code(s): I48.91 - UNSPECIFIED ATRIAL FIBRILLATION (7) Diabetes Code(s): E11.9 - TYPE 2 DIABETES MELLITUS WITHOUT COMPLICATIONS (8) HTN (hypertension) Code(s): I10 - ESSENTIAL (PRIMARY) HYPERTENSION Qualifiers: (9) Hyperlipidemia Code(s): E78.5 - HYPERLIPIDEMIA, UNSPECIFIED Qualifiers: (10) Obstructive sleep apnea Code(s): G47.33 - OBSTRUCTIVE SLEEP APNEA (ADULT) (PEDIATRIC)
[2018-02-11 13:36] VITALS: BP 102/64; PULSE 82; TEMP 98.4
--- NOTE | 2018-02-11 15:51 | PN ---
Progress Note, Physician Chief Complaint: Pt A&Ox3; OOB in chair. No chest pain; less dyspneic. His is at his side. History of Present Illness: 62-year-old white male, history of severe systolic CHF-->ICD, obesity, [place], HLD , HTN, DM, CKD, CAD s/p CABG, afib on eliquis,, COPD on 3 L of nasal cannula at baseline, on lasix and spironolactone, here with worsening of his baseline SOB 1 week. Also complaining of chest tightness intermittently. Chest tightness not worse with exertion. No diaphoresis, nausea, vomiting, wheezing, cough, fever or chills. Seen by Dr. Link of pulmonary last week and now on prednisone taper. Also recently had his lasix increased for bilateral pedal edema which has since improved per patient - Current Medication List Current Medications: Active Medications Albuterol/Ipratropium (Duoneb -) 1 amp NEB RQID [facility] Last Admin: 02/11/18 11:30 Dose: 1 amp Apixaban (Eliquis -) 2.5 mg PO BID [facility] Last Admin: 02/11/18 09:35 Dose: 2.5 mg Aspirin (Asa -) 81 mg PO DAILY [facility] Last Admin: 02/11/18 09:40 Dose: 81 mg Atorvastatin Calcium (Lipitor -) 40 mg PO HS [facility] Last Admin: 02/10/18 21:25 Dose: 40 mg Carvedilol (Coreg -) 3.125 mg PO BID [facility] Last Admin: 02/11/18 09:35 Dose: 3.125 mg Furosemide (Lasix -) 40 mg PO DAILY [facility] Last Admin: 02/11/18 09:35 Dose: 40 mg Insulin Aspart (Novolog Vial Sliding Scale -) 1 vial SQ [facility]; Protocol Last Admin: 02/11/18 12:06 Dose: 6 units Levothyroxine Sodium (Synthroid -) 25 mcg PO DAILY@0700 [facility] Last Admin: 02/11/18 06:09 Dose: 25 mcg Prednisone (Deltasone -) 30 mg PO BID [facility] Last Admin: 02/11/18 09:36 Dose: 30 mg - Objective Vital Signs: Vital Signs Temperature 98.4 F 02/11/18 13:35 Pulse Rate 82 02/11/18 13:35 Respiratory Rate 17 02/11/18 13:35 Blood Pressure 102/64 02/11/18 13:35 O2 Sat by Pulse Oximetry (%) 95 02/11/18 11:37 Constitutional: Yes: No Distress, Obese Eyes: Yes: WNL HENT: Yes: WNL Neck: Yes: WNL Cardiovascular: Yes: Pulse Irregular Respiratory: Yes: Regular Gastrointestinal: Yes: Soft, Abdomen, Obese ...Rectal Exam: Yes: Deferred Genitourinary: No: Anuria Musculoskeletal: Yes: Muscle Weakness Extremities: Yes: Cool Edema: Yes Edema: LLE: Trace, RLE: Trace Peripheral Pulses WNL: Yes Integumentary: Yes: WNL Neurological: Yes: WNL Psychiatric: Yes: WNL Labs: CBC, BMP 02/09/18 05:30 02/10/18 05:30 - ....Imaging Other: Image Reviewed (periods of ventricular pacing) Problem List - Problems (1) Acute exacerbation of chronic obstructive pulmonary disease (COPD) Assessment/Plan: f/u with agriculture professor. Pt has participated in pulmonary clinic here in the past. Code(s): J44.1 - CHRONIC OBSTRUCTIVE PULMONARY DISEASE W (ACUTE) EXACERBATION (2) Acute on chronic respiratory failure with hypoxemia Code(s): J96.21 - ACUTE AND CHRONIC RESPIRATORY FAILURE WITH HYPOXIA (3) Acute on chronic systolic CHF (congestive heart failure) Assessment/Plan: no longer hypotensive, Restartedcarvedilol 3.125 mg bid. Gradually restart other CHF meds (lisinopril 2.5 mg daily; spironolactone 25 mg daily). F/u as outpatient. Code(s): I50.23 - ACUTE ON CHRONIC SYSTOLIC (CONGESTIVE) HEART FAILURE (4) Diabetes Assessment/Plan: Consider stawrting Jardience for DM and decreasing cardiac events. Code(s): E11.9 - TYPE 2 DIABETES MELLITUS WITHOUT COMPLICATIONS Qualifiers: Diabetes mellitus type: type 2 (5) Hx of CABG Code(s): Z95.1 - PRESENCE OF AORTOCORONARY BYPASS GRAFT (6) Obesity Assessment/Plan: Pt's says she will radically change his eating and exercise habits. Code(s): E66.9 - OBESITY, UNSPECIFIED (7) Renal insufficiency Code(s): N28.9 - DISORDER OF KIDNEY AND URETER, UNSPECIFIED (8) Diabetes Code(s): E11.9 - TYPE 2 DIABETES MELLITUS WITHOUT COMPLICATIONS (9) HTN (hypertension) Code(s): I10 - ESSENTIAL (PRIMARY) HYPERTENSION Qualifiers: (10) Hyperlipidemia Assessment/Plan: sttin; diet Code(s): E78.5 - HYPERLIPIDEMIA, UNSPECIFIED Qualifiers: (11) Hypothyroid Assessment/Plan: TSH WNL Code(s): E03.9 - HYPOTHYROIDISM, UNSPECIFIED Qualifiers: (12) Obstructive sleep apnea Assessment/Plan: CPAP per agriculture professor Code(s): G47.33 - OBSTRUCTIVE SLEEP APNEA (ADULT) (PEDIATRIC) (13) S/P implantation of automatic cardioverter/defibrillator (AICD) Code(s): Z95.810 - PRESENCE OF AUTOMATIC (IMPLANTABLE) CARDIAC DEFIBRILLATOR (14) PAD (peripheral artery disease) Assessment/Plan: No DVT on US. Code(s): I73.9 - PERIPHERAL VASCULAR DISEASE, UNSPECIFIED
[2018-02-11] MEDS ORDERED: INSULIN (NOVOLOG) ASPART 100 UNITS/ML 10ML VIAL ONE (16:52)
== END 2018-02-11 19:00 | disposition home health service (06) | DRG 291 ==
LOC: JER 16:35 → JERBED 19:56 → J2W 02-08 10:14
PROVIDERS: ADMIT Internal Medicine; ATTEND Family Medicine
DX: I13.0 Hypertensive heart and chronic kidney disease with heart failure and stage 1 through stage 4 chronic kidney disease, or unspecified chronic kidney disease (principal); J96.01 Acute respiratory failure with hypoxia; I50.23 Acute on chronic systolic (congestive) heart failure; J44.1 Chronic obstructive pulmonary disease with (acute) exacerbation; N17.9 Acute kidney failure, unspecified; I25.5 Ischemic cardiomyopathy; I48.0 Paroxysmal atrial fibrillation; E11.22 Type 2 diabetes mellitus with diabetic chronic kidney disease; E66.01 Morbid (severe) obesity due to excess calories; Z68.39 Body mass index [BMI] 39.0-39.9, adult; G47.33 Obstructive sleep apnea (adult) (pediatric); Z99.89 Dependence on other enabling machines and devices; Z99.81 Dependence on supplemental oxygen; E03.9 Hypothyroidism, unspecified; I25.10 Atherosclerotic heart disease of native coronary artery without angina pectoris; Z79.84 Long term (current) use of oral hypoglycemic drugs; D64.9 Anemia, unspecified; Z95.1 Presence of aortocoronary bypass graft; Z95.810 Presence of automatic (implantable) cardiac defibrillator; E78.5 Hyperlipidemia, unspecified; Z87.891 Personal history of nicotine dependence; Z79.01 Long term (current) use of anticoagulants; N40.0 Benign prostatic hyperplasia without lower urinary tract symptoms; I95.9 Hypotension, unspecified; I27.20 Pulmonary hypertension, unspecified; I73.9 Peripheral vascular disease, unspecified
CPT/HCPCS: 36415; 36600; 71045-TC-FY; 76775-TC; 76856-TC; 80048; 80053; 80061; 81003; 82436; 82550; 82570; 82728; 82803; 82962; 83036; 83540; 83550; 83721; 83735; 83880; 84100; 84133; 84300; 84443; 84484; 85025; 85027; 87040; 87804; 93005; 93010; 93306-TC; 93970-TC; 94640; 94660; 99285-25; J7620

== ENCOUNTER 2020-09-24 22:43 | Emergency (ER) | payer OTHER ==
[2020-09-24] MEDS ORDERED: EPINEPHrine 1:10,000 (P-F SYR) 1 MG/10 ML DISP.SYRIN ONE (22:55)
[2020-09-24] MEDS ORDERED: SODIUM BICARBONATE 8.4% - 50 ML ONE (22:55)
[2020-09-24 23:02] VITALS: BP 0/0; BMI 40.7
== END 2020-09-25 02:16 | disposition expired ==
LOC: JER 22:43
PROC: 3E023GC Introduction of Other Therapeutic Substance into Muscle, Percutaneous Approach (ICD-10-PCS; principal; 2020-09-24)
DX: I46.9 Cardiac arrest, cause unspecified (principal)
CPT/HCPCS: 96372; 99284-25